=== PATIENT | female | born 1955 | race Caucasian/White ===

== ENCOUNTER 2016-04-12 12:52 | Emergency (ER) | payer OTHER ==
[~2016-04-12] VITALS: Ht 162.6 cm; Wt 6.3 kg
[~2016-04-12 12:52] MED LIST: ATOR10TA65 PO; FURO20TA PO; LISI-313 PO; NITR-58 PO; OMEP20CA16 PO
[2016-04-12 13:08] VITALS: Ht 162.6 cm; Wt 6.3 kg
[2016-04-12 15:34] VITALS: PULSE 94; RESP 20; TEMP 97.3
[2016-04-12] MEDS ORDERED: ONDANSETRON 4 MG INJ IV STA (16:36)
[2016-04-12] MEDS ORDERED: SOD CHLORIDE 0.9% 1,000 ML IV STA (16:36)
[2016-04-12] MEDS ORDERED: ONDANSETRON 4 MG INJ ONE (16:45)
[2016-04-12] MEDS ORDERED: ASPI-664 PO (16:46)
[2016-04-12] MEDS ORDERED: HYDR-902 PO (16:48)
[2016-04-12] MEDS ORDERED: BISA-57 PO (16:52)
[2016-04-12] MEDS ORDERED: [UNRECOGNIZED DRUG - CODE] IV (16:52)
[2016-04-12 17:26] LABS: BASOPHILS % 0.3 % (0.0-2.0); HEMATOCRIT 38.9 % (37.0-47.0); LYMPHOCYTES # 0.6 10^3/ul (0.8-2.9); LYMPHOCYTES % 6.2 % (15.0-51.0); MEAN CORPUSCULAR HEMOGLOBIN 27.3 pg (29.0-33.0); MEAN CORPUSCULAR HGB CONC 33.4 g/dl (32.0-37.0); MEAN CORPUSCULAR VOLUME 81.5 fl (82.0-101.0); MEAN PLATELET VOLUME 8.1 fl (7.4-10.4); MONOCYTE # 0.1 10^3/ul (0.3-0.9); MONOCYTES % 0.6 % (0.0-11.0); NEUTROPHIL # 8.4 10^3/ul (1.6-7.5); NEUTROPHILS % 92.9 % (39.0-77.0); PLATELET COUNT 228 10^3/UL (140-440); RED BLOOD COUNT 4.77 10^6/ul (4.20-5.40); RED CELL DISTRIBUTION WIDTH 15.8 % (11.5-14.5)
[2016-04-12 17:34] LABS: ADD UMIC YES; URINE BILIRUBIN (Dip) NEGATIVE (NEGATIVE); URINE BLOOD (Dip) TRACE (NEGATIVE); URINE COLOR DK. YELLOW (YELLOW); URINE GLUCOSE (Dip) NEGATIVE (NEGATIVE); URINE KETONES (Dip) 15 (NEGATIVE); URINE LEUKOCYTE ESTERASE (Dip) NEGATIVE (NEGATIVE); URINE NITRITE (Dip) NEGATIVE (NEGATIVE); URINE TOTAL PROTEIN (Dip) TRACE (NEGATIVE); URINE UROBILINOGEN (Dip) 0.2 E.U./dL (0.1-1.0)
[2016-04-12 17:36] LABS: CONDITION 1; LH ANALYZER COMMENTS 1
[2016-04-12 17:38] LABS: ALBUMIN 4.5 g/dl (3.3-4.9)
[2016-04-12 17:39] LABS: POTASSIUM 4.5 mmol/L (3.5-5.1)
[2016-04-12 17:41] LABS: ALBUMIN/GLOBULIN RATIO 1.18; BILIRUBIN,INDIRECT 0.9 mg/dl (0-1.1); BILIRUBIN,TOTAL 0.9 mg/dl (0.2-1.3); CREATININE 0.67 mg/dl (0.44-1.00); TOTAL PROTEIN 8.3 g/dl (6.1-8.1)
[2016-04-12 17:42] LABS: CALCIUM 9.8 mg/dl (8.4-10.2)
[2016-04-12 18:08] LABS: SQUAMOUS EPITHELIAL CELL,UR FEW; URINE RBCS 0-2 /HPF (0)
[2016-04-12 18:09] LABS: BACTERIA,URINE FEW; MUCUS,URINE FEW
[2016-04-12 18:36] VITALS: BP 129/64
[2016-04-12 18:40] LABS: PLATELET ESTIMATE PLT APPEAR ADEQUATE
--- NOTE | 2016-04-12 19:28 | RADRPT ---
PROCEDURE: CT Abdomen and Pelvis without contrast. CLINICAL INDICATION: Abdominal pain TECHNIQUE: CT of the abdomen and pelvis was performed on a multi-detector scanner without IV contr ast. Coronal and sagittal images were reformatted from the axial data set. One or more of the foll owing dose reduction techniques were used: automated exposure control, adjustment of the mA and/or kV according to patient size, use of iterative reconstruction technique. CTDI = 8.26 mGy. DLP = 466 .07 mGy-cm. COMPARISON: CTA chest, 02/14/2016 FINDINGS: CT abdomen: The lung bases are clear. The heart size is normal, without pericardial effusion. Gallbladder is s urgically absent. Liver, biliary tree, pancreas, spleen, adrenal glands and kidneys are unremarkabl e. No urolithiasis or obstructive uropathy is identified. The stomach is grossly unremarkable. The aorta is of normal caliber. Aortoiliac atherosclerotic calcifications are present. Small calci fied periaortic lymph nodes are identified, significantly decreased in size when compared to the to[place] or CT. There has also been significant interval decrease in size of previously seen gastrohepatic l igament lymph nodes. CT pelvis: No bowel obstruction, free intraperitoneal air or abscess is identified. Moderate retained fecal ma terial is suggestive of constipation. There is no diverticulosis, diverticulitis, appendicitis or c olitis. Urinary bladder is grossly unremarkable. Uterus is surgically absent. No pelvic free flui d is seen. The surrounding osseous structures are unremarkable. No osteolytic or osteoblastic lesion is detect ed. IMPRESSION: 1. There has been significant interval decrease in size of previously seen periaortic and gastrohep atic ligament lymph nodes, suggestive of positive response to therapy. 2. Gallbladder and uterus are surgically absent. 3. Moderate retained fecal material is suggestive of constipation. 4. No acute inflammatory process is identified. RPTAT: QQ .Mohamud Diaz MD, MD Date Time Electronically viewed and signed by .Mohamud Diaz MD, MD on 04/12/2016 19:28 .R/
[2016-04-12] MEDS ORDERED: DOCU-144 PO (19:34)
[2016-04-12] MEDS ORDERED: CITROMA PO (19:34)
--- NOTE | 2016-04-12 19:40 | ERD ---
ER Documentation Chief Complaint Date/Time DATE: 04/12/16 TIME: 19:35 Chief Complaint VOMITING 3-4 TIMES STARTING YESTERDAY HPI 60-year-old female with a history of recently diagnosed uterine cancer status post total abdominal hysterectomy on IV chemotherapy every 3 weeks presenting with generalized abdominal discomfort. She states that she has had this for the past 2 days. She has had associated nausea with occasional vomiting that is nonbloody and nonbilious. She states she is passing gas but she has been unable to have a bowel movement for the past 4 days despite taking Dulcolax. No fevers, chills, chest pain, shortness of breath, dysuria, or headaches. Her last chemotherapy was 5 days ago. ROS All systems reviewed and are negative except as per history of present illness. Medications Home Meds Active Scripts Magnesium Citrate* (Citroma*) 300 Ml Soln, 300 ML PO ONCE Y for CONSTIPATION, # 1 BOTTLE Prov:PIPPA BENOIT MD 04/12/16 Docusate Sodium* (Colace*) 100 Mg Capsule, 100 MG PO TID Y for CONSTIPATION, # 30 CAP Prov:PIPPA BENOIT MD 04/12/16 Furosemide* (Lasix*) 20 Mg Tablet, 20 MG PO DAILY for 30 Days, TAB Prov:KARIE TAN NP 02/24/16 Reported Medications Bisacodyl* (Dulcolax*) 5 Mg Tablet., 10 MG PO DAILY Y for CONSTIPATION, TAB 04/12/16 Granisetron HCl (Granisetron HCl) 1 Mg/1 Ml Vial, 1 MG IV BID, VIAL PT TAKES A TABLET 04/12/16 Hydrocodone/Acetaminophen ([place] 10-325 Tablet) 1 Each Tablet, 1 EACH PO EVERY 4 -6 HOURS Y for PAIN, TAB 04/12/16 Aspirin (Low Dose Aspirin) 81 Mg Tablet.dr, 81 MG PO DAILY, #30 TAB 04/12/16 Atorvastatin (Atorvastatin) 10 Mg Tablet, 10 MG PO QHS, #30 TAB 02/05/16 Lisinopril* (Lisinopril*) 5 Mg Tablet, 5 MG PO DAILY, #30 TAB 02/05/16 Omeprazole* (Omeprazole*) 20 Mg Capsule.dr, 20 MG PO DAILY, #30 CAP 02/05/16 Discontinued Scripts Nitrofurantoin Monohyd Macrocr* (Macrobid*) 100 Mg Capsr, 100 MG PO BID for 5 Days, CAP Prov:ROSE MARY CUMMINSGoran BURTON 03/16/16 Allergies Allergies: Coded Allergies: No Known Allergies (Unverified Allergy, Unknown, 04/12/16) PMhx/Soc History of Surgery: Yes (HYSTERECTOMY 0CT,2015) Anesthesia Reaction: No Hx Neurological Disorder: No Hx Respiratory Disorders: No Hx Cardiac Disorders: No Hx Psychiatric Problems: No Hx Miscellaneous Medical Probl: Yes (DYSLIPIDEMIA, OVERWEIGHT, CANCER (UTERINE )) Hx Alcohol Use: No Hx Substance Use: No Hx Tobacco Use: No Smoking Status: Never smoker FmHx Family History: No diabetes Physical Exam Vitals Vital Signs Date Time Temp Pulse Resp B/P Pulse Ox O2 Delivery O2 Flow Rate FiO2 04/12/16 18:36 129/64 04/12/16 15:34 97.3 94 20 133/68 99 Room Air 04/12/16 13:08 97.0 91 18 126/76 99 Physical Exam Const: No apparent distress, nontoxic Head: Atraumatic Eyes: Normal Conjunctiva ENT: Normal External Ears, Nose and Mouth. Neck: Full range of motion..~ No meningismus. Resp: Clear to auscultation bilaterally. Port present in left chest, no overlying erythema or tenderness Cardio: Regular rate and rhythm, no murmurs. Abd: Soft, non tender, non distended. Normal bowel sounds Skin: No petechiae or rashes Back: No midline or flank tenderness Ext: No cyanosis, or edema Neur: Awake and alert Psych: Normal Mood and Affect Result Diagram: 04/12/16 1710 04/12/16 1710 Results 24 hrs Laboratory Tests Test 04/12/16 17:10 Alanine Aminotransferase (ALT/SGPT) 24IU/L Albumin 4.5g/dl Albumin/Globulin Ratio 1.18 Alkaline Phosphatase 117IU/L Anion Gap 18 Aspartate Amino Transf (AST/SGOT) 22IU/L Basophils # 0.010^3/ul Basophils % 0.3% Blood Morphology Comment Blood Urea Nitrogen 25mg/dl Calcium Level 9.8mg/dl Carbon Dioxide Level 28mmol/L Chloride Level 99mmol/L Creatinine 0.67mg/dl Direct Bilirubin 0.00mg/dl Eosinophils # 0.010^3/ul Eosinophils % 0.0% Globulin 3.80g/dl Glucose Level 143mg/dl Hematocrit 38.9% Hemoglobin 13.0g/dl Indirect Bilirubin 0.9mg/dl Lipase 48U/L Lymphocytes # 0.610^3/ul Lymphocytes % 6.2% Mean Corpuscular Hemoglobin 27.3pg Mean Corpuscular Hemoglobin Concent 33.4g/dl Mean Corpuscular Volume 81.5fl Mean Platelet Volume 8.1fl Monocytes # 0.110^3/ul Monocytes % 0.6% Neutrophils # 8.410^3/ul Neutrophils % 92.9% Nucleated Red Blood Cells # 0.010^3/ul Nucleated Red Blood Cells % 0.0/100WBC Platelet Count 39756^3/UL Platelet Estimate PLT APPEAR ADEQUATE Potassium Level 4.5mmol/L Red Blood Count 4.7710^6/ul Red Cell Distribution Width 15.8% Sodium Level 140mmol/L Total Bilirubin 0.9mg/dl Total Protein 8.3g/dl Urine Bacteria FEW Urine Bilirubin NEGATIVE Urine Clarity SLIGHTLY CLOUDY Urine Color DK. YELLOW Urine Glucose NEGATIVE% Urine Hemoglobin TRACE Urine Ketones 15 Urine Leukocyte Esterase NEGATIVE Urine Microscopic RBC 0-2/HPF Urine Microscopic WBC 0-2/HPF Urine Mucus FEW Urine Nitrite NEGATIVE Urine Specific [place] >=1.030 Urine Squamous Epithelial Cells FEW Urine Total Protein TRACE Urine Urobilinogen 0.2 E.U./dL Urine pH 5.5 White Blood Count 9.010^3/ul Current Medications Medications (Trade) Dose Ordered Sig/David Route PRN Reason Start Time Stop Time Status Last Admin Dose Admin Sodium Chloride (NS) 1,000 ml @ 1,000 mls/hr Q1H STAT IV 04/12/16 16:36 04/12/16 17:35 DC 04/12/16 16:57 Ondansetron HCl (Zofran Inj) 4 mg ONCE STAT IV 04/12/16 16:36 04/12/16 16:39 DC 04/12/16 16:57 Procedures/MDM EKG: Rate/Rhythm: Normal Sinus Rhythm QRS, ST, T-waves: No changes consistent w/ acute ischemia Impression: No evidence of ischemia or arrhythmia Patient is presenting with generalized abdominal pain associated with nausea, vomiting, and constipation. Vitals are within normal limits and she is afebrile. I have a low suspicion for an acute surgical abdomen or acute intra- abdominal infection. I suspect her symptoms may be secondary to her constipation. CT of the abdomen showed moderate retained stool without evidence of acute intra-abdominal pathology. Labs were all within normal limits and there is no evidence of UTI. Patient was given IV fluids and anti- emetics here with significant improvement of her symptoms. I prescribed her Colace for discharge as this has helped her in the past with her constipation. I also gave her prescription for mag citrate and told her to use this only if she really needs to for constipation if the Colace is not working. Patient was tolerating liquids by mouth in the ED. I believe she is stable for discharge with continued outpatient follow-up. Return precautions were discussed. Patient feels comfortable going home at this time. Departure Diagnosis: Primary Impression: Abdominal pain Abdominal location: generalized Qualified Code: R10.84 - Generalized abdominal pain Additional Impression: Constipation Constipation type: unspecified constipation type Qualified Code: K59.00 - Constipation, unspecified constipation type Condition: Stable Patient Instructions: Abdominal Pain, Constipation (Adult) Additional Instructions: Return to the ER for any worsening symptoms. PIPPA BENOIT MD Apr 12, 2016 19:40
== END 2016-04-12 20:50 | disposition home or self-care (01) ==
LOC: E/R 12:52
DX: R10.84 Generalized abdominal pain (principal); K59.00 Constipation, unspecified; R11.2 Nausea with vomiting, unspecified; R40.2142 Coma scale, eyes open, spontaneous, at arrival to emergency department; R40.2252 Coma scale, best verbal response, oriented, at arrival to emergency department; R40.2362 Coma scale, best motor response, obeys commands, at arrival to emergency department; Z79.82 Long term (current) use of aspirin; Z85.42 Personal history of malignant neoplasm of other parts of uterus
CPT/HCPCS: 36415; 74176; 80053; 81001; 81003; 83690; 85025; 93005; 96374; J7030; Z7502; J2405

== ENCOUNTER 2016-10-23 05:19 | Inpatient (IN) | payer OTHER ==
[2016-10-23] VITALS (21 sets, daily range): BP systolic 126–159; BP diastolic 56–80; PULSE 72–92; RESP 12–18; Ht 160 cm; Wt 70.5 kg
[~2016-10-23] VITALS: Ht 160 cm; Wt 70.5 kg
[~2016-10-23 05:19] MED LIST changes: +ASPI-664 PO; +BISA-57 PO; +CITROMA PO; +DOCU-144 PO; +FURO-110 PO; -FURO20TA PO; +HYDR-902 PO; -NITR-58 PO; +[UNRECOGNIZED DRUG - CODE] IV
[2016-10-23] MEDS ORDERED: D5-NS + KCL 20 MEQ 1,000 ML IV SCH (06:00)
[2016-10-23] MEDS ORDERED: CEFAZOLIN 2 GM/50 ML (PMX) 50 ML IVPB ONE (06:00)
[2016-10-23] MEDS ORDERED: Metronidazole 500 MG in NS 100 ML IVPB ONE (06:00)
[2016-10-23] MEDS ORDERED: ROCURONIUM 50 MG INJ ONE (06:52)
[2016-10-23] MEDS ORDERED: GLYCOPYRROLATE 0.4 MG INJ ONE (06:52)
[2016-10-23] MEDS ORDERED: NEOSTIGMINE 3 MG/3 ML SYRINGE ONE (06:52)
[2016-10-23] MEDS ORDERED: PROPOFOL 20 ML ONE (06:52)
[2016-10-23] MEDS ORDERED: MIDAZOLAM 1 MG/ML 2 ML INJ ONE (06:52)
[2016-10-23] MEDS ORDERED: FENTAnyl 50 MCG/ML VIAL ONE (06:52)
[2016-10-23] MEDS ORDERED: LIDOCAINE 2% (SDV) 5 ML INJ ONE (06:52)
[2016-10-23] MEDS ORDERED: ONDANSETRON 4 MG INJ ONE (06:53)
[2016-10-23] MEDS ORDERED: DEXAMETHASONE 4 MG/ML 1 ML INJ ONE (06:53)
--- NOTE | 2016-10-23 06:57 | HPN ---
Date/Time of Note Date/Time of Note DATE: 10/23/16 TIME: 06:56 Interval H&P Admission Note Pt. seen H&P reviewed: No system changes JEFF PALOMINO MD Oct 23, 2016 06:57
[2016-10-23] MEDS ORDERED: morphine (1 MG/ML) 10ML SYRINGE IV PRN ×3 (07:00)
[2016-10-23] MEDS ORDERED: DIPHENHYDRAMINE 50 MG INJ IV PRN (07:00)
[2016-10-23] MEDS ORDERED: ONDANSETRON 4 MG INJ IV PRN (07:00)
[2016-10-23] MEDS ORDERED: ATROPINE 1 MG/10 ML SYRINGE IV PRN (07:00)
[2016-10-23] MEDS ORDERED: CEFAZOLIN 1 GM INJ ONE (07:00)
[2016-10-23] MEDS ORDERED: metroNIDAZOLE 500 MG/100 ML NS IVPB ONE (07:00)
[2016-10-23] MEDS ORDERED: HYDROmorphONE (0.2 MG/ML) 10ML SYG IV PRN ×3 (07:00)
[2016-10-23] MEDS ORDERED: EPHEDrine SULFATE 50 MG/5 ML SYG IV PRN (07:00)
[2016-10-23] MEDS ORDERED: OXYCODONE/ACETAMINOPHEN (5/325) TAB PO PRN ×2 (07:00)
[2016-10-23] MEDS ORDERED: MIDAZOLAM 1 MG/ML 2 ML INJ IV PRN (07:00)
[2016-10-23] MEDS ORDERED: MEPERIDINE 25 MG INJ IV PRN (07:00)
[2016-10-23] MEDS ORDERED: FENTAnyl 50 MCG/ML VIAL IV PRN (07:00)
[2016-10-23] MEDS ORDERED: LABETALOL HCL 20MG INJ IV PRN (07:00)
[2016-10-23] MEDS ORDERED: hydrALAzine 20 MG INJ IV PRN ×2 (07:00→18:30)
[2016-10-23] MEDS ORDERED: morphine SULFATE/PF (10 MG/10 ML) INJ ONE (07:06)
[2016-10-23] MEDS ORDERED: VASOPRESSIN 20 UNITS INJ ONE (07:34)
[2016-10-23] MEDS ORDERED: METHYLENE BLUE 1% 10 ML INJ ONE (07:34)
[2016-10-23] MEDS ORDERED: THROMBIN 5000 UNIT VIAL ONE (07:34)
[2016-10-23] MEDS ORDERED: LABETALOL HCL 20MG INJ ONE (08:44)
--- NOTE | 2016-10-23 08:44 | HP ---
Date/Time of Note Date/Time of Note DATE: 10/23/16 TIME: 08:43 Assessment/Plan VTE Prophylaxis VTE Prophylaxis Intervention: SCD's Lines/Catheters IV Catheter Type (from [facility]): Peripheral IV HPI/ROS Admit Date/Time Admit Date/Time Oct 23, 2016 at 05:19 ROS Lalit Palomino M.D. [facility] History and Physical Examination Griselda Stein Oct 19, 2016 Age:61 :1955 Physicians: Facility Specialist Boat Person Oncologist Referring MD: History of the Present Illness: This is a year old female who had a primary ovarian cancer operated on with a complete response to [place]-based chemotherapy. She is admitted for a staging/reassessment procedure. Surgery: SAMIA/BSO/LND/cytoreduction Medical history/ROS: all other systems unremarkable. Medications: 01/05/16 aspirin 81 mg chewable tablet 1 tablet by mouth DAILY 01/05/16 atorvastatin 10 mg tablet 1 tablet by mouth DAILY 01/05/16 diclofenac sodium 50 mg tablet,delayed release 1 tablet by mouth BID 10/06/16 Flagyl 250 mg tablet 1 tablet by mouth as directed 1 PO QD X 2 DAYS LYNETTE 10/06/16 [place] 236 gram-22.74 gram-6.74 gram-5.86 gram oral solution 1 mL by mouth as directed BEGIN BOWEL PREP AT 2PM 10/06/16 Levaquin 250 mg tablet 1 tablet by mouth as directed 1 PO QD X 2 DAYS LYNETTE 01/05/16 lisinopril 5 mg tablet 1 tablet by mouth DAILY 10/06/16 [place] 10 mg-325 mg tablet 1 tablet by mouth Q6-8h 01/05/16 omeprazole 20 mg capsule,delayed release 1 capsule by mouth DAILY gardisil Allergies: No active allergies recorded Family history: unremarkable. Social history: no identified high-risk categories. Review of Systems: Negative except for above noted Physical Examination Vitals (10/19/2016): Weight 161, Height 62, BP 120/80, BMI 29.4. General: Alert. HEENT: Pupils are equal, round, reactive to light and accommodation. Neck: Supple with no masses of lymphadenopathy. Breast: Deferred due to recent examination and responsibility of primary care physician. Chest: Clear to auscultation and percussion with no rales, rhonchi, or wheeze. Heart: Normal rhythm with no murmur. Abdominal exam: nontender, nondistended, no masses, no ascites. location: N/A Pelvic exam: no masses or cul-de-sac nodularity noted Rectal: confirmatory with pelvic exam. Neurological: Grossly intact Assessment: Ovarian cancer with primary chemo rx completed. Plan: Reassessment laparotomy with staging, possible cytoreduction. All risks and benefits of this procedure have been discussed in detail with the patient, as well as alternative treatment strategies and their implications. The patient is aware that there is some possibility of a blood transfusion and its associated risks and benefits. She wishes to proceed and gives her informed consent. Lalit Palomino M.D. PMH/Family/Social Social History Smoking Status: Never smoker Exam/Review of Systems Vital Signs Vitals Vital Signs Date Time Temp Pulse Resp B/P Pulse Ox O2 Delivery O2 Flow Rate FiO2 10/23/16 06:00 96.9 73 18 140/71 98 Room Air Medications Medications Current Medications Potassium Chloride/Dextrose/ Sod Cl (D5-NS + KCl 20 Meq) 1,000 ml @ 100 mls/hr Q10H IV ; Start 10/23/16 at 06:00; Stop 10/23/16 at 23:00 LALIT PALOMINO MD Oct 23, 2016 08:44
[2016-10-23] MEDS: FENTAnyl 50 MCG/ML VIAL IV PRN ×4 (11:57→12:44)
[2016-10-23] MEDS: HYDROmorphONE 0.2 MG/ML PCA IV SCH (12:11)
[2016-10-23] MEDS ORDERED: CEFAZOLIN 1 GM/50 ML (PMX) 50 ML IVPB ONE (12:17)
[2016-10-23] MEDS ORDERED: CEFAZOLIN 1 GM in SOD CHLORIDE 0.9% 100 ML IVPB SCH (12:30)
[2016-10-23] MEDS: POTASSIUM CHLORIDE 20 MEQ in LACTATED RINGER'S 990 ML IV SCH ×2 (12:54→21:29)
[2016-10-23] MEDS: ONDANSETRON 4 MG INJ IV PRN (13:41)
[2016-10-23] MEDS: CEFAZOLIN 1 GM/50 ML (PMX) 50 ML IVPB SCH ×2 (13:41→21:25)
[2016-10-23 14:44] LABS: ADD SCAN DIFF NO
[2016-10-23 15:08] LABS: HEMATOCRIT 37.9 % (37.0-47.0); HEMOGLOBIN 13.4 g/dl (12.0-16.0); MEAN CORPUSCULAR HEMOGLOBIN 29.7 pg (29.0-33.0); MEAN CORPUSCULAR HGB CONC 35.4 g/dl (32.0-37.0); MEAN PLATELET VOLUME 9.6 fl (7.4-10.4); PLATELET COUNT 299 10^3/UL (140-415); RED BLOOD COUNT 4.51 10^6/ul (4.20-5.40); RED CELL DISTRIBUTION WIDTH 13.1 % (11.5-14.5); WHITE BLOOD COUNT 13.8 10^3/ul (4.8-10.8)
[2016-10-23 15:27] LABS: CALCIUM 8.8 mg/dl (8.4-10.2); CREATININE 0.54 mg/dl (0.44-1.00); POTASSIUM 3.5 mmol/L (3.5-5.1)
[2016-10-23 15:30] LABS: LYMPHOCYTES # 0.4 10^3/ul (0.8-2.9); MONOCYTE # 0.4 10^3/ul (0.3-0.9); NEUTROPHIL # 12.6 10^3/ul (1.6-7.5)
--- NOTE | 2016-10-23 18:28 | PN ---
Date/Time of Note Date/Time of Note DATE: 10/23/16 TIME: 18:23 Assessment/Plan VTE Prophylaxis VTE Prophylaxis Intervention: anti-embolic stocking Lines/Catheters IV Catheter Type (from Nrs): Peripheral IV Urinary Cath still in place: Yes Reason Cath still needed: other (indicate) Assessment/Plan Chief Complaint/Hosp Course Patient is a 61-year-old female with a primary ovarian cancer operated on subsequently underwent a [place] based chemotherapy. She is being admitted for staging/restaging procedure. Patient postoperatively had is breathing comfortably denies any chest pain or shortness of breath,denies any numbness or weakness in any extremities. Patient has a history of hypertension and dyslipidemia but since she is postoperatively being kept n.p.o. will hold off on her antihypertensive medication. Will add IV had hydralazine on as needed basis. Problems: Subjective 24 Hr Interval Summary Free Text/Dictation No reported chest pain ,shortness of breath, headache, pain in any extremities. Exam/Review of Systems Vital Signs Vitals Vital Signs Date Time Temp Pulse Resp B/P Pulse Ox O2 Delivery O2 Flow Rate FiO2 10/23/16 17:00 16 10/23/16 16:15 92 143/65 92 Nasal Cannula 1.0 10/23/16 13:30 97.7 Results Result Diagram: 10/23/16 1431 10/23/16 1431 Results 24 hrs Laboratory Tests Test 10/23/16 14:31 White Blood Count 13.8 #H Red Blood Count 4.51 Hemoglobin 13.4 Hematocrit 37.9 Mean Corpuscular Volume 84.0 Mean Corpuscular Hemoglobin 29.7 Mean Corpuscular Hemoglobin Concent 35.4 Red Cell Distribution Width 13.1 Platelet Count 299 Mean Platelet Volume 9.6 Neutrophils % 91.0 H Band Neutrophils % 3.0 Lymphocytes % 3.0 L Monocytes % 3.0 Eosinophils % Neutrophils # 12.6 H Lymphocytes # 0.4 L Monocytes # 0.4 Eosinophils # Sodium Level 143 Potassium Level 3.5 Chloride Level 103 Carbon Dioxide Level 26 Anion Gap 18 H Blood Urea Nitrogen 12 Creatinine 0.54 Glucose Level 236 H Calcium Level 8.8 Medications Medications Current Medications Hydromorphone HCl (Dilaudid FOREST ECONOMIST) 0 MG/HR CONTINUOUS RATE ... Q4PCA IV Last administered on 10/23/16t 12:11; Admin Dose 6 MG; Start 10/23/16 at 12:30 Hydromorphone HCl (Dilaudid) 1 mg Q2HWA PRN IV PAIN LEVEL 6-10; Start 10/23/16 at 12:00 Ondansetron HCl (Zofran Inj) 4 mg Q6H PRN IV NAUSEA AND/OR VOMITING Last administered on 10/23/16 13:41; Admin Dose 4 MG; Start 10/23/16 at 12:00 Famotidine 20 mg 20 mg Q12 IV ; Start 10/23/16 at 21:00 Potassium Chloride 20 meq/ Lactated Ringer's 1,000 ml @ 125 mls/hr Q8H IV Last administered on 10/23/16 12:54; Admin Dose 125 MLS/HR; Start 10/23/16 at 12:30 Cefazolin Sodium (Ancef 1 Gm/50 ml (Pmx)) 50 ml @ 100 mls/hr Q8 IVPB Last administered on 10/23/16 13:41; Admin Dose 100 MLS/HR; Start 10/23/16 at 14:00 Hydralazine HCl (Apresoline) 10 mg Q4H PRN IV SBP >160, DBP >95; Start at 18:30 COBY KRAMER MD Oct 23, 2016 18:28
[2016-10-23] MEDS: FAMOTIDINE 20 MG INJ IV SCH (21:25)
[2016-10-24] VITALS: BP 144/69; PULSE 89
[2016-10-24] MEDS: POTASSIUM CHLORIDE 20 MEQ in LACTATED RINGER'S 990 ML IV SCH ×3 (04:30→15:43)
[2016-10-24 05:02] LABS: ADD SCAN DIFF NO
[2016-10-24 05:07] LABS: BASOPHILS % 0.1 % (0.0-2.0); HEMATOCRIT 35.4 % (37.0-47.0); HEMOGLOBIN 12.1 g/dl (12.0-16.0); LYMPHOCYTES # 1.2 10^3/ul (0.8-2.9); LYMPHOCYTES % 10.5 % (15.0-51.0); MEAN CORPUSCULAR HEMOGLOBIN 28.5 pg (29.0-33.0); MEAN CORPUSCULAR HGB CONC 34.2 g/dl (32.0-37.0); MEAN CORPUSCULAR VOLUME 83.3 fl (82.0-101.0); MEAN PLATELET VOLUME 9.6 fl (7.4-10.4); MONOCYTE # 0.9 10^3/ul (0.3-0.9); MONOCYTES % 7.7 % (0.0-11.0); NEUTROPHIL # 9.2 10^3/ul (1.6-7.5); NEUTROPHILS % 81.4 % (39.0-77.0); PLATELET COUNT 291 10^3/UL (140-415); RED BLOOD COUNT 4.25 10^6/ul (4.20-5.40); WHITE BLOOD COUNT 11.3 10^3/ul (4.8-10.8)
[2016-10-24 05:10] VITALS: BP 145/72; PULSE 93
[2016-10-24 05:36] LABS: ALBUMIN 3.7 g/dl (3.3-4.9); ALBUMIN/GLOBULIN RATIO 1.37; BILIRUBIN,INDIRECT 0.3 mg/dl (0-1.1); BILIRUBIN,TOTAL 0.3 mg/dl (0.2-1.3); CALCIUM 9.3 mg/dl (8.4-10.2); CREATININE 0.59 mg/dl (0.44-1.00); POTASSIUM 4.5 mmol/L (3.5-5.1); TOTAL PROTEIN 6.4 g/dl (6.1-8.1)
[2016-10-24] MEDS: CEFAZOLIN 1 GM/50 ML (PMX) 50 ML IVPB SCH ×3 (05:36→22:11)
[2016-10-24] MEDS: FAMOTIDINE 20 MG INJ IV SCH ×2 (06:34→20:49)
[2016-10-24] MEDS: HYDROmorphONE 0.2 MG/ML PCA IV SCH ×2 (06:39→22:47)
[2016-10-24 07:00] VITALS: BP 136/61; RESP 18
--- NOTE | 2016-10-24 15:49 | PN ---
Date/Time of Note Date/Time of Note DATE: 10/24/16 TIME: 15:45 Assessment/Plan VTE Prophylaxis VTE Prophylaxis Intervention: other Lines/Catheters IV Catheter Type (from Nrsg): Peripheral IV Urinary Cath still in place: Yes Reason Cath still needed: urinary retention Assessment/Plan Assessment/Plan Ovarian cancer with primary chemo rx completed. - per surgery - pain control dw Dr Phelps/staff Subjective 24 Hr Interval Summary Constitutional: requiring IVF, requiring O2 Respiratory: no complaints Cardiovascular: no complaints Gastrointestinal: no complaints Genitourinary: no complaints Musculoskeletal: no complaints Exam/Review of Systems Vital Signs Vitals Vital Signs Date Time Temp Pulse Resp B/P Pulse Ox O2 Delivery O2 Flow Rate FiO2 10/24/16 14:22 18 10/24/16 09:00 Nasal Cannula 2.0 10/24/16 07:00 99.0 85 136/61 96 Intake and Output 10/23/16 10/23/16 10/24/16 15:00 23:00 07:00 Intake Total 1250 ml 550 ml 1110 ml Output Total 370 ml 280 ml 1020 ml Balance 880 ml 270 ml 90 ml Exam Constitutional: alert, well developed Respiratory: clear to auscultation, normal air movement Cardiovascular: nl pulses, regular rate and rhythm Gastrointestinal: non-tender, soft Extremities: normal pulses Results Result Diagram: 10/24/165 10/24/16 0425 Results 24 hrs Laboratory Tests Test 10/24/16 04:25 White Blood Count 11.3 H Red Blood Count 4.25 Hemoglobin 12.1 Hematocrit 35.4 L Mean Corpuscular Volume 83.3 Mean Corpuscular Hemoglobin 28.5 L Mean Corpuscular Hemoglobin Concent 34.2 Red Cell Distribution Width 13.0 Platelet Count 291 Mean Platelet Volume 9.6 Neutrophils % 81.4 H Lymphocytes % 10.5 L Monocytes % 7.7 Eosinophils % 0.0 Basophils % 0.1 Nucleated Red Blood Cells % 0.0 Neutrophils # 9.2 H Lymphocytes # 1.2 Monocytes # 0.9 Eosinophils # 0.0 Basophils # 0.0 Nucleated Red Blood Cells # 0.0 Sodium Level 141 Potassium Level 4.5 Chloride Level 98 Carbon Dioxide Level 29 Anion Gap 19 H Blood Urea Nitrogen 12 Creatinine 0.59 Glucose Level 137 # Hemoglobin A1c 7.0 H Calcium Level 9.3 Total Bilirubin 0.3 Direct Bilirubin 0.00 Indirect Bilirubin 0.3 Aspartate Amino Transf (AST/SGOT) 37 Alanine Aminotransferase (ALT/SGPT) 62 Alkaline Phosphatase 92 Total Protein 6.4 Albumin 3.7 Globulin 2.70 Albumin/Globulin Ratio 1.37 Medications Medications Current Medications Hydromorphone HCl (Dilaudid TECHNOLOGY SALES REPRESENTATIVE) 0 MG/HR CONTINUOUS RATE ... Q4PCA IV Last administered on 10/24/16 06:39; Admin Dose 6 MG; Start 10/23/16 at 12:30 Hydromorphone HCl (Dilaudid) 1 mg Q2HWA PRN IV PAIN LEVEL 6-10; Start 10/23/16 at 12:00 Ondansetron HCl (Zofran Inj) 4 mg Q6H PRN IV NAUSEA AND/OR VOMITING Last administered on 10/23/16 13:41; Admin Dose 4 MG; Start 10/23/16 at 12:00 Famotidine 20 mg 20 mg Q12 IV Last administered on 10/24/16 06:34; Admin Dose 20 MG; Start 10/23/16 at 21:00 Potassium Chloride 20 meq/ Lactated Ringer's 1,000 ml @ 125 mls/hr Q8H IV Last administered on 10/24/16 15:43; Admin Dose 125 MLS/HR; Start 10/23/16 at 12:30 Cefazolin Sodium (Ancef 1 Gm/50 ml (Pmx)) 50 ml @ 100 mls/hr Q8 IVPB Last administered on 10/24/16 14:13; Admin Dose 100 MLS/HR; Start 10/23/16 at 14:00 Hydralazine HCl (Apresoline) 10 mg Q4H PRN IV SBP >160, DBP >95; Start at 18:30 YFN BRIAN Oct 24, 2016 15:49
[2016-10-24] MEDS: PANTOPRAZOLE 40 MG INJ IV SCH (16:33)
[2016-10-24 20:00] VITALS: BP 139/65; PULSE 88
[2016-10-24] MEDS: LEVALBUTEROL (NEB) 0.63 MG/3 ML AMP HHN PRN (20:58)
--- NOTE | 2016-10-24 21:40 | PN ---
Date/Time of Note Date/Time of Note DATE: 10/24/16 TIME: 21:36 Assessment/Plan VTE Prophylaxis VTE Prophylaxis Intervention: SCD's Lines/Catheters IV Catheter Type (from Nrs): Peripheral IV Urinary Cath still in place: Yes Reason Cath still needed: urinary retention Assessment/Plan Chief Complaint/Hosp Course ovarian cancer /p tootie rx Problems: Assessment/Plan A- doing well p- mobilize and adv diet a.m. Subjective 24 Hr Interval Summary Free Text/Dictation No flatus and minimally OOB. Exam/Review of Systems Vital Signs Vitals Vital Signs Date Time Temp Pulse Resp B/P Pulse Ox O2 Delivery O2 Flow Rate FiO2 10/24/16 21:10 2.0 10/24/16 21:10 85 16 97 Nasal Cannula 10/24/16 07:00 99.0 136/61 Intake and Output 10/23/16 10/23/16 10/24/16 15:00 23:00 07:00 Intake Total 1250 ml 550 ml 1110 ml Output Total 370 ml 280 ml 1020 ml Balance 880 ml 270 ml 90 ml Exam Resp - clear CVS- nsr Abd- soft nt clean Ext nt no edema Results Result Diagram: 10/24/16 0425 10/24/16 0425 Results 24 hrs Laboratory Tests Test 10/24/16 04:25 White Blood Count 11.3 H Red Blood Count 4.25 Hemoglobin 12.1 Hematocrit 35.4 L Mean Corpuscular Volume 83.3 Mean Corpuscular Hemoglobin 28.5 L Mean Corpuscular Hemoglobin Concent 34.2 Red Cell Distribution Width 13.0 Platelet Count 291 Mean Platelet Volume 9.6 Neutrophils % 81.4 H Lymphocytes % 10.5 L Monocytes % 7.7 Eosinophils % 0.0 Basophils % 0.1 Nucleated Red Blood Cells % 0.0 Neutrophils # 9.2 H Lymphocytes # 1.2 Monocytes # 0.9 Eosinophils # 0.0 Basophils # 0.0 Nucleated Red Blood Cells # 0.0 Sodium Level 141 Potassium Level 4.5 Chloride Level 98 Carbon Dioxide Level 29 Anion Gap 19 H Blood Urea Nitrogen 12 Creatinine 0.59 Glucose Level 137 # Hemoglobin A1c 7.0 H Calcium Level 9.3 Total Bilirubin 0.3 Direct Bilirubin 0.00 Indirect Bilirubin 0.3 Aspartate Amino Transf (AST/SGOT) 37 Alanine Aminotransferase (ALT/SGPT) 62 Alkaline Phosphatase 92 Total Protein 6.4 Albumin 3.7 Globulin 2.70 Albumin/Globulin Ratio 1.37 Medications Medications Current Medications Hydromorphone HCl (Dilaudid TARGET SETTER) 0 MG/HR CONTINUOUS RATE ... Q4PCA IV Last administered on 10/24/16 06:39; Admin Dose 6 MG; Start 10/23/16 at 12:30 Hydromorphone HCl (Dilaudid) 1 mg Q2HWA PRN IV PAIN LEVEL 6-10; Start 10/23/16 at 12:00 Ondansetron HCl (Zofran Inj) 4 mg Q6H PRN IV NAUSEA AND/OR VOMITING Last administered on 10/23/16 13:41; Admin Dose 4 MG; Start 10/23/16 at 12:00 Famotidine 20 mg 20 mg Q12 IV Last administered on 10/24/16 20:49; Admin Dose 20 MG; Start 10/23/16 at 21:00 Potassium Chloride 20 meq/ Lactated Ringer's 1,000 ml @ 125 mls/hr Q8H IV Last administered on 10/24/16 15:43; Admin Dose 125 MLS/HR; Start 10/23/16 at 12:30 Cefazolin Sodium (Ancef 1 Gm/50 ml (Pmx)) 50 ml @ 100 mls/hr Q8 IVPB Last administered on 10/24/16 14:13; Admin Dose 100 MLS/HR; Start 10/23/16 at 14:00 Hydralazine HCl (Apresoline) 10 mg Q4H PRN IV SBP >160, DBP >95; Start at 18:30 Pantoprazole (Protonix Iv) 40 mg DAILY@06 IV Last administered on 10/24/16 16: 33; Admin Dose 40 MG; Start 10/24/16 at 16:30 JEFF PALOMINO MD Oct 24, 2016 21:40
[2016-10-25] MEDS: POTASSIUM CHLORIDE 20 MEQ in LACTATED RINGER'S 990 ML IV SCH ×2 (00:12→15:25)
[2016-10-25 05:39] LABS: ADD SCAN DIFF NO
[2016-10-25] MEDS: PANTOPRAZOLE 40 MG INJ IV SCH (05:44)
[2016-10-25] MEDS: CEFAZOLIN 1 GM/50 ML (PMX) 50 ML IVPB SCH ×3 (05:44→21:43)
[2016-10-25 05:50] LABS: BASOPHIL # 0.1 10^3/ul (0.0-0.1); BASOPHILS % 0.6 % (0.0-2.0); EOSINOPHILS # 0.1 10^3/ul (0.0-0.5); EOSINOPHILS % 0.9 % (0.0-7.0); HEMOGLOBIN 10.4 g/dl (12.0-16.0); LYMPHOCYTES # 1.8 10^3/ul (0.8-2.9); LYMPHOCYTES % 16.2 % (15.0-51.0); MEAN CORPUSCULAR HEMOGLOBIN 28.3 pg (29.0-33.0); MEAN CORPUSCULAR HGB CONC 33.5 g/dl (32.0-37.0); MEAN CORPUSCULAR VOLUME 84.5 fl (82.0-101.0); MEAN PLATELET VOLUME 9.6 fl (7.4-10.4); MONOCYTE # 0.7 10^3/ul (0.3-0.9); MONOCYTES % 6.7 % (0.0-11.0); NEUTROPHIL # 8.2 10^3/ul (1.6-7.5); NEUTROPHILS % 75.1 % (39.0-77.0); PLATELET COUNT 246 10^3/UL (140-415); RED BLOOD COUNT 3.67 10^6/ul (4.20-5.40); RED CELL DISTRIBUTION WIDTH 13.2 % (11.5-14.5); WHITE BLOOD COUNT 10.9 10^3/ul (4.8-10.8)
[2016-10-25 06:06] LABS: CALCIUM 8.7 mg/dl (8.4-10.2); CREATININE 0.62 mg/dl (0.44-1.00)
[2016-10-25] MEDS: LEVALBUTEROL (NEB) 0.63 MG/3 ML AMP HHN PRN ×3 (07:17→23:38)
[2016-10-25 08:50] VITALS: BP 103/53; RESP 17
[2016-10-25] MEDS: FAMOTIDINE 20 MG INJ IV SCH ×2 (09:07→20:08)
--- NOTE | 2016-10-25 15:02 | PN ---
Date/Time of Note Date/Time of Note DATE: 10/25/16 TIME: 15:00 Assessment/Plan VTE Prophylaxis VTE Prophylaxis Intervention: SCD's Lines/Catheters IV Catheter Type (from Nrs): Peripheral IV Urinary Cath still in place: Yes Reason Cath still needed: urinary retention Assessment/Plan Chief Complaint/Hosp Course ovarian cancer /p tootie rx Problems: Assessment/Plan A- gradual impvt/ P- clear liq and ambulate more Subjective 24 Hr Interval Summary Free Text/Dictation + flatus but minimally OOB Exam/Review of Systems Vital Signs Vitals Vital Signs Date Time Temp Pulse Resp B/P Pulse Ox O2 Delivery O2 Flow Rate FiO2 10/25/16 08:50 99.3 92 17 103/53 92 10/25/16 07:17 Nasal Cannula 2.0 Intake and Output 10/24/16 10/24/16 10/25/16 15:00 23:00 07:00 Intake Total 50 ml 1360 ml 1410 ml Output Total 1040 ml 2010 ml Balance 50 ml 320 ml -600 ml Exam Resp- clear CVS- NSR Abd- soft NT Ext NT no edema Results Result Diagram: 10/25/16 0509 10/25/16 0509 Results 24 hrs Laboratory Tests Test 10/25/16 05:09 White Blood Count 10.9 H Red Blood Count 3.67 L Hemoglobin 10.4 L Hematocrit 31.0 L Mean Corpuscular Volume 84.5 Mean Corpuscular Hemoglobin 28.3 L Mean Corpuscular Hemoglobin Concent 33.5 Red Cell Distribution Width 13.2 Platelet Count 246 Mean Platelet Volume 9.6 Neutrophils % 75.1 Lymphocytes % 16.2 Monocytes % 6.7 Eosinophils % 0.9 Basophils % 0.6 Nucleated Red Blood Cells % 0.0 Neutrophils # 8.2 H Lymphocytes # 1.8 Monocytes # 0.7 Eosinophils # 0.1 Basophils # 0.1 Nucleated Red Blood Cells # 0.0 Sodium Level 138 Potassium Level 5.0 Chloride Level 96 L Carbon Dioxide Level 31 Anion Gap 16 Blood Urea Nitrogen 9 Creatinine 0.62 Glucose Level 118 Calcium Level 8.7 Medications Medications Current Medications Hydromorphone HCl (Dilaudid [employer]) 0 MG/HR CONTINUOUS RATE ... Q4PCA IV Last administered on 10/24/16t 22:47; Admin Dose 6 MG; Start 10/23/16 at 12:30 Hydromorphone HCl (Dilaudid) 1 mg Q2HWA PRN IV PAIN LEVEL 6-10; Start 10/23/16 at 12:00 Ondansetron HCl (Zofran Inj) 4 mg Q6H PRN IV NAUSEA AND/OR VOMITING Last administered on 10/23/16 13:41; Admin Dose 4 MG; Start 10/23/16 at 12:00 Famotidine 20 mg 20 mg Q12 IV Last administered on 10/25/16 09:07; Admin Dose 20 MG; Start 10/23/16 at 21:00 Potassium Chloride 20 meq/ Lactated Ringer's 1,000 ml @ 125 mls/hr Q8H IV Last administered on 10/25/16 00:12; Admin Dose 125 MLS/HR; Start 10/23/16 at 12:30 Cefazolin Sodium (Ancef 1 Gm/50 ml (Pmx)) 50 ml @ 100 mls/hr Q8 IVPB Last administered on 10/25/16 05:44; Admin Dose 100 MLS/HR; Start 10/23/16 at 14:00 Hydralazine HCl (Apresoline) 10 mg Q4H PRN IV SBP >160, DBP >95; Start at 18:30 Pantoprazole (Protonix Iv) 40 mg DAILY@06 IV Last administered on 10/25/16 05: 44; Admin Dose 40 MG; Start 10/24/16 at 16:30 JEFF PALOMINO MD Oct 25, 2016 15:02
[2016-10-25] MEDS: HYDROmorphONE 0.2 MG/ML PCA IV SCH (15:27)
--- NOTE | 2016-10-25 18:19 | PN ---
Date/Time of Note Date/Time of Note DATE: 10/25/16 TIME: 18:15 Assessment/Plan VTE Prophylaxis VTE Prophylaxis Intervention: other Lines/Catheters IV Catheter Type (from Nrsg): Peripheral IV Urinary Cath still in place: Yes Assessment/Plan Assessment/Plan Ovarian cancer with primary chemo rx completed. - per surgery - pain control roxane Phelps/staff Subjective 24 Hr Interval Summary Free Text/Dictation 1610- patient seen/assessed. dw staff Constitutional: no complaints Eyes: no complaints ENT: no complaints Respiratory: no complaints Cardiovascular: no complaints Gastrointestinal: nausea Genitourinary: no complaints Musculoskeletal: no complaints Skin: no complaints Exam/Review of Systems Vital Signs Vitals Vital Signs Date Time Temp Pulse Resp B/P Pulse Ox O2 Delivery O2 Flow Rate FiO2 10/25/16 17:39 86 20 96 Nasal Cannula 2.0 10/25/16 08:50 99.3 103/53 Intake and Output 10/24/16 10/24/16 10/25/16 14:59 22:59 06:59 Intake Total 50 ml 1360 ml 1410 ml Output Total 1040 ml 2010 ml Balance 50 ml 320 ml -600 ml Exam Constitutional: alert, oriented, well developed Respiratory: clear to auscultation, normal air movement Cardiovascular: nl pulses, regular rate and rhythm Gastrointestinal: other, soft Results Result Diagram: 10/25/16 0509 10/25/16 0509 Results 24 hrs Laboratory Tests Test 10/25/16 05:09 White Blood Count 10.9 H Red Blood Count 3.67 L Hemoglobin 10.4 L Hematocrit 31.0 L Mean Corpuscular Volume 84.5 Mean Corpuscular Hemoglobin 28.3 L Mean Corpuscular Hemoglobin Concent 33.5 Red Cell Distribution Width 13.2 Platelet Count 246 Mean Platelet Volume 9.6 Neutrophils % 75.1 Lymphocytes % 16.2 Monocytes % 6.7 Eosinophils % 0.9 Basophils % 0.6 Nucleated Red Blood Cells % 0.0 Neutrophils # 8.2 H Lymphocytes # 1.8 Monocytes # 0.7 Eosinophils # 0.1 Basophils # 0.1 Nucleated Red Blood Cells # 0.0 Sodium Level 138 Potassium Level 5.0 Chloride Level 96 L Carbon Dioxide Level 31 Anion Gap 16 Blood Urea Nitrogen 9 Creatinine 0.62 Glucose Level 118 Calcium Level 8.7 Medications Medications Current Medications Hydromorphone HCl (Dilaudid [employer]) 0 MG/HR CONTINUOUS RATE ... Q4PCA IV Last administered on 10/25/16 15:27; Admin Dose 6 MG; Start 10/23/16 at 12:30 Hydromorphone HCl (Dilaudid) 1 mg Q2HWA PRN IV PAIN LEVEL 6-10; Start 10/23/16 at 12:00 Ondansetron HCl (Zofran Inj) 4 mg Q6H PRN IV NAUSEA AND/OR VOMITING Last administered on 10/23/16 13:41; Admin Dose 4 MG; Start 10/23/16 at 12:00 Famotidine 20 mg 20 mg Q12 IV Last administered on 10/25/16 09:07; Admin Dose 20 MG; Start 10/23/16 at 21:00 Cefazolin Sodium (Ancef 1 Gm/50 ml (Pmx)) 50 ml @ 100 mls/hr Q8 IVPB Last administered on 10/25/16 15:23; Admin Dose 100 MLS/HR; Start 10/23/16 at 14:00 Hydralazine HCl (Apresoline) 10 mg Q4H PRN IV SBP >160, DBP >95; Start at 18:30 Pantoprazole 40 mg 40 mg DAILY@06 IV Last administered on 10/25/16 05:44; Admin Dose 40 MG; Start 10/24/16 at 16:30 Lactated Ringer's (Lr) 1,000 ml @ 125 mls/hr Q8H IV ; Start 10/25/16 at 18:30 YFN BRIAN Oct 25, 2016 18:19
[2016-10-25] MEDS: LACTATED RINGER'S 1,000 ML IV SCH (18:37)
[2016-10-25 19:21] VITALS: BP 126/56; RESP 16
--- NOTE | 2016-10-25 21:07 | OPR ---
Date/Time of Note Date/Time of Note DATE: 10/25/16 TIME: 21:06 Operative Report Free Text/Dictation 1 OPERATIVE REPORT [facility] Name: Griselda Guardado Date: 10/23/16 Preoperative Diagnosis: Ovarian cancer s/p primary therapy Postoperative Diagnosis: same with pathology pending Procedures: 1-Reassessment laparotomy 2- Right ureteral dissection 3- Portal node dissection 4- Ventral hernia repair Surgeon: Dr. Hayes [employer] Civil Engineer: Dr. Michelle Anesthesia: General Indication for surgery: After the 61 year old patient completed her chemotherapy she was disease-free on the basis of markers and a recent PET/CT scan. After discussing all options with risks and benefits we decided on a reassessment laparotomy to determine the need for alternative platin-based multi-agent chemotherapy versus maintaining therapy with taxol or avastin. Summary and Findings After exploration and extensive enterolysis no gross persistent disease was noted per frozen section and multiple biopsies were taken and areas of greatest risk including the portal silvio area. The patient tolerated the procedure well. Findings and Procedure: Name: Griselda Guardado After being prepped and draped in the usual manner a midline skin incision was made of appropriate length. The electrocautery was then used to dissect thru the adipose tissue to the level of the fascia. We then extended the incision and encountered fascia. The fascia was cut with a scalpel. At this time the peritoneum was elevated and incised with a Metzenbaum scissors. Upon entering the peritoneal cavity no ascetic fluid was removed and we observed considerable adhesions. Minimal enterolysis was necessary; adhesions that were present required careful dissection with repair of sero-muscular defects with interrupted suture of 3-0 silk suture. Multiple biopsies of small areas of granular tissue were taken by the frozen sections were negative. At this time adhesions of intestine to the anterior abdominal wall were lysed with great care. Multiple biopsies were taken. At this time, we ran the entire bowel. When dissecting the large bowel from the gutters and the small bowel from the pelvis it was not possible to avoid sero-muscular injury. The defects were oversewn with interrupted suture using 3-0 silk. All adhesions were cut with great care using sharp dissection. Multiple biopsies were taken throughout the length of the bowel as well as the missing mesentery and terminal ileum was densely adherent to the sidewall. The right retroperitoneum was then opened laterally with sharp dissection and the vasculature palpated. Subsequently a right angle and peanut was used to open and identify the vasculature after which the ureter was identified and mild hydroureter noted. Subsequently the right angle and peanut were used and a ureteral dissection with repositioning was completed and some mobilization accomplished digitally, permitting the small densely adherent to the sidewall to be dissected and mobilized with sharp dissection and a peanut as the ureter was visualized. Any sero-muscular defects encountered were repaired with interrupted 3-0 Silk suture. Additionally, the ureter was further dissected and the ureterolysis was completed to the area of stricture due to scar tissue and adjacent silvio tissue sent to pathology and adjacent tissue ablated with the argon beam radiology receptionist at low wattage. Subsequently the terminal ileum was inspected and additional biopsied taken as well as the pelvis. Additionally, Name: [facility] multiple biopsies were taken throughout the upper abdomen, including the diaphragm after lysis of adhesions. We then took multiple biopsies of both gutter regions and thoroughly evaluated the ascending and descending colon. Biopsies of adhesions in these areas were taken. We then addressed the pelvis. Any remaining scar tissue was thoroughly dissected. Again, any tissue with abnormal texture or appearance was thoroughly biopsied. Finally, washings were taken with the normal saline. We then addressed the exposure and excised some high aorto-caval nodes with adequate exposure. Subsequently, the retractors and exposure were adjusted and the portal area was visualized , and considerable enterolysis was needed during which the vasculature was appreciated and identified with a Doppler and palpated and a solitary enlarged portal node was removed with sharp dissection and a right angle and peanut and sent to pathology pending intact. At this time, after all packing was removed, the abdomen thoroughly irrigated, hemostasis confirmed. At this time the antiadhesion substance Seprafilm was placed uneventfully. At this time , fascial edges were exposed by resecting the ventral hernia sac with the Ligasure and electrocautery. The hernia sac was sent to pathology. A figure of eight suture was placed at the caudal apex of the incision with 1 Prolene suture and used for exposure by elevating with a Pean clamp. A continuous suture of 1 Prolene suture was used from the rostral apex and run to the supra- pubic area. The final 1- Prolene suture suture was tied appropriately, after which the figure of eight was tied. The subcutaneous tissue was irrigated and the skin was closed with skin clips. The sponge, needle, and instrument were correct two times. The estimated blood loss was 100 cc. The patient tolerated the procedure well and left the OR in good condition. Lalit Hayes M.D. LALIT HAYES MD Oct 25, 2016 21:07
[2016-10-26] MEDS: LACTATED RINGER'S 1,000 ML IV SCH ×4 (02:52→21:06)
[2016-10-26] MEDS: PANTOPRAZOLE 40 MG INJ IV SCH (05:16)
[2016-10-26] MEDS: CEFAZOLIN 1 GM/50 ML (PMX) 50 ML IVPB SCH ×3 (05:16→21:06)
[2016-10-26 05:20] LABS: ADD SCAN DIFF NO
[2016-10-26 05:27] LABS: BASOPHILS % 0.5 % (0.0-2.0); EOSINOPHILS # 0.1 10^3/ul (0.0-0.5); EOSINOPHILS % 1.4 % (0.0-7.0); HEMATOCRIT 31.1 % (37.0-47.0); HEMOGLOBIN 10.4 g/dl (12.0-16.0); LYMPHOCYTES # 1.3 10^3/ul (0.8-2.9); LYMPHOCYTES % 15.1 % (15.0-51.0); MEAN CORPUSCULAR HEMOGLOBIN 28.1 pg (29.0-33.0); MEAN CORPUSCULAR HGB CONC 33.4 g/dl (32.0-37.0); MEAN CORPUSCULAR VOLUME 84.1 fl (82.0-101.0); MEAN PLATELET VOLUME 9.6 fl (7.4-10.4); MONOCYTE # 0.6 10^3/ul (0.3-0.9); MONOCYTES % 6.7 % (0.0-11.0); NEUTROPHIL # 6.7 10^3/ul (1.6-7.5); NEUTROPHILS % 75.8 % (39.0-77.0); PLATELET COUNT 249 10^3/UL (140-415); RED CELL DISTRIBUTION WIDTH 13.2 % (11.5-14.5); WHITE BLOOD COUNT 8.9 10^3/ul (4.8-10.8)
[2016-10-26 05:53] LABS: INR 1.17; PT RATIO 1.2
[2016-10-26 06:09] LABS: CALCIUM 8.8 mg/dl (8.4-10.2); CREATININE 0.6 mg/dl (0.44-1.00); POTASSIUM 3.7 mmol/L (3.5-5.1)
[2016-10-26 08:03] VITALS: BP 153/70; RESP 16
[2016-10-26] MEDS: FAMOTIDINE 20 MG INJ IV SCH ×2 (08:37→21:06)
[2016-10-26] MEDS: ONDANSETRON 4 MG INJ IV PRN ×2 (12:07→18:30)
[2016-10-26] MEDS: HYDROCODONE/APAP (5/325) TAB PO PRN (13:56)
--- NOTE | 2016-10-26 18:15 | PN ---
Date/Time of Note Date/Time of Note DATE: 10/26/16 TIME: 18:14 Assessment/Plan VTE Prophylaxis VTE Prophylaxis Intervention: SCD's Lines/Catheters IV [facility]ter Type (from [facility]): Peripheral IV Urinary Cath still in place: No Assessment/Plan Chief Complaint/Hosp Course Patient was able to ambulate to the restroom, pain is well controlled, denies any nausea vomiting denies fevers. Assessment/Plan Ovarian cancer s/p initial surgery followed by carboplatin and Taxol. Patient underwent staging and restaging procedure by Dr. Hayes. Follow-up surgical recommendation. Advance diet diet per surgery. Continue [place] and Dilaudid as needed for pain. Further recommendations based on clinical course. Plan of care discussed with Dr. Phelps. Problems: Exam/Review of Systems Vital Signs Vitals Vital Signs Date Time Temp Pulse Resp B/P Pulse Ox O2 Delivery O2 Flow Rate FiO2 10/26/16 16:22 2.0 10/26/16 08:15 18 10/26/16 08:03 98.3 88 153/70 93 10/25/16 23:39 Nasal Cannula Intake and Output 10/25/16 10/25/16 10/26/16 15:00 23:00 07:00 Intake Total 250 ml 1750 ml Output Total 1200 ml 960 ml Balance -950 ml 790 ml Exam Constitutional: alert, oriented Head: normocephalic Neck: supple Respiratory: normal air movement Cardiovascular: nl pulses Gastrointestinal: other (Status post surgery), soft Extremities: normal pulses Neurological: nl mental status Results Result Diagram: 10/26/16 0430 10/26/16 0430 Results 24 hrs Laboratory Tests Test 10/26/16 04:30 White Blood Count 8.9 Red Blood Count 3.70 L Hemoglobin 10.4 L Hematocrit 31.1 L Mean Corpuscular Volume 84.1 Mean Corpuscular Hemoglobin 28.1 L Mean Corpuscular Hemoglobin Concent 33.4 Red Cell Distribution Width 13.2 Platelet Count 249 Mean Platelet Volume 9.6 Neutrophils % 75.8 Lymphocytes % 15.1 Monocytes % 6.7 Eosinophils % 1.4 Basophils % 0.5 Nucleated Red Blood Cells % 0.0 Neutrophils # 6.7 Lymphocytes # 1.3 Monocytes # 0.6 Eosinophils # 0.1 Basophils # 0.0 Nucleated Red Blood Cells # 0.0 Prothrombin Time 15.0 H Prothrombin Time Ratio 1.2 INR International Normalized Ratio 1.17 Sodium Level 136 Potassium Level 3.7 Chloride Level 98 Carbon Dioxide Level 29 Anion Gap 13 Blood Urea Nitrogen 8 Creatinine 0.60 Glucose Level 99 Calcium Level 8.8 Medications Medications Current Medications Hydromorphone HCl (Dilaudid) 1 mg Q2HWA PRN IV PAIN LEVEL 6-10; Start 10/23/16 at 12:00 Ondansetron HCl (Zofran Inj) 4 mg Q6H PRN IV NAUSEA AND/OR VOMITING Last administered on 10/26/16 12:07; Admin Dose 4 MG; Start 10/23/16 at 12:00 Famotidine 20 mg 20 mg Q12 IV Last administered on 10/26/16 08:37; Admin Dose 20 MG; Start 10/23/16 at 21:00 Cefazolin Sodium (Ancef 1 Gm/50 ml (Pmx)) 50 ml @ 100 mls/hr Q8 IVPB Last administered on 10/26/16 13:56; Admin Dose 100 MLS/HR; Start 10/23/16 at 14:00 Hydralazine HCl (Apresoline) 10 mg Q4H PRN IV SBP >160, DBP >95; Start at 18:30 Pantoprazole 40 mg 40 mg DAILY@06 IV Last administered on 10/26/16 05:16; Admin Dose 40 MG; Start 10/24/16 at 16:30 Lactated Ringer's (Lr) 1,000 ml @ 125 mls/hr Q8H IV Last administered on 12:09; Admin Dose 125 MLS/HR; Start 10/25/16 at 18:30 Hydromorphone HCl (Dilaudid) 0.5 mg Q4H PRN IV PAIN; Start 10/26/16 at 13:30 Acetaminophen/ Hydrocodone Bitart ([place] (5/325)) 1 tab Q4H PRN PO PAIN LEVEL 4 -7; Start 10/26/16 at 13:30 Acetaminophen/ Hydrocodone Bitart ([place] (5/325)) 2 tab Q4H PRN PO PAIN LEVEL 7 -10 Last administered on 10/26/16 13:56; Admin Dose 2 TAB; Start 10/26/16 at 13 :30 MATHIEU WALSH Oct 26, 2016 18:15
[2016-10-26] MEDS: HYDROmorphONE 1 MG/ML SYG IV PRN ×2 (18:29→22:29)
[2016-10-26 19:13] VITALS: BP 130/60; RESP 18
[2016-10-27] MEDS: HYDROmorphONE 1 MG/ML SYG IV PRN ×4 (02:19→23:09)
[2016-10-27] MEDS: LACTATED RINGER'S 1,000 ML IV SCH ×2 (02:30→13:28)
[2016-10-27] MEDS: PANTOPRAZOLE 40 MG INJ IV SCH (05:29)
[2016-10-27] MEDS: CEFAZOLIN 1 GM/50 ML (PMX) 50 ML IVPB SCH ×3 (05:29→21:42)
[2016-10-27 05:36] LABS: ADD SCAN DIFF NO
[2016-10-27 05:41] LABS: BASOPHILS % 0.4 % (0.0-2.0); EOSINOPHILS # 0.1 10^3/ul (0.0-0.5); EOSINOPHILS % 1.6 % (0.0-7.0); HEMATOCRIT 31.7 % (37.0-47.0); HEMOGLOBIN 10.8 g/dl (12.0-16.0); LYMPHOCYTES % 14.4 % (15.0-51.0); MEAN CORPUSCULAR HEMOGLOBIN 28.7 pg (29.0-33.0); MEAN CORPUSCULAR HGB CONC 34.1 g/dl (32.0-37.0); MEAN CORPUSCULAR VOLUME 84.3 fl (82.0-101.0); MEAN PLATELET VOLUME 9.8 fl (7.4-10.4); MONOCYTE # 0.4 10^3/ul (0.3-0.9); MONOCYTES % 5.6 % (0.0-11.0); NEUTROPHIL # 5.4 10^3/ul (1.6-7.5); NEUTROPHILS % 77.4 % (39.0-77.0); PLATELET COUNT 287 10^3/UL (140-415); RED BLOOD COUNT 3.76 10^6/ul (4.20-5.40); RED CELL DISTRIBUTION WIDTH 12.8 % (11.5-14.5)
[2016-10-27 06:13] LABS: CALCIUM 8.8 mg/dl (8.4-10.2); CREATININE 0.61 mg/dl (0.44-1.00); POTASSIUM 3.8 mmol/L (3.5-5.1)
[2016-10-27 08:00] VITALS: BP 131/61; RESP 13
[2016-10-27] MEDS: FAMOTIDINE 20 MG INJ IV SCH (10:01)
--- NOTE | 2016-10-27 16:58 | CONS ---
Date/Time of Note Date/Time of Note DATE: 10/27/16 TIME: 16:53 Assessment/Plan Assessment/Plan Additional Assessment/Plan Pt is doing well after surgical reassessment surgery. Path from multiple biopsies is pending. She is walking to bathroom and is very alert and coherent. The only postoperative issue is venous access. Note that she previously required a Portacath to get chemotherapy. Continue postop care per Dr. Palomino. Further treatment to be planned when path is available. Consultation Date/Type/Reason Admit Date/Time Oct 23, 2016 at 05:19 Date of Consultation: Oct 27, 2016 Type of Consultation: oncology Reason for Consultation ovarian cancer Referring Provider: JEFF PALOMINO MD Hx of Present Illness 61 yo woman with ovarian cancer s/p initial surgery followed by carboplatin and Taxol. Two days ago a second look procedure was done. Pathology results are pending. She is doing very well post operatively. Constitutional: no complaints Eyes: no complaints ENT: no complaints Respiratory: no complaints, pleuritic pain Cardiovascular: no complaints Gastrointestinal: nausea Genitourinary: no complaints Musculoskeletal: no complaints Skin: no complaints Social History Smoking Status: Never smoker Exam/Review of Systems Vital Signs Vitals Vital Signs Date Time Temp Pulse Resp B/P Pulse Ox O2 Delivery O2 Flow Rate FiO2 10/27/16 08:00 98.8 81 13 131/61 94 10/26/16 20:19 2.0 10/25/16 23:39 Nasal Cannula Intake and Output 10/26/16 10/26/16 10/27/16 15:00 23:00 07:00 Intake Total 800 ml 1890 ml 590 ml Output Total 600 ml 5 ml Balance 800 ml 1290 ml 585 ml Exam Constitutional: alert, oriented Head: normocephalic Eyes: nl conjunctiva Neck: supple Respiratory: clear to auscultation Cardiovascular: regular rate and rhythm Gastrointestinal: other (s/p surgery) Musculoskeletal: nl extremities to inspection Skin: nl turgor Results Result Diagram: 10/27/162 10/27/16 0442 Results 24 hrs Laboratory Tests Test 10/27/16 04:42 White Blood Count 7.0 # Red Blood Count 3.76 L Hemoglobin 10.8 L Hematocrit 31.7 L Mean Corpuscular Volume 84.3 Mean Corpuscular Hemoglobin 28.7 L Mean Corpuscular Hemoglobin Concent 34.1 Red Cell Distribution Width 12.8 Platelet Count 287 Mean Platelet Volume 9.8 Neutrophils % 77.4 H Lymphocytes % 14.4 L Monocytes % 5.6 Eosinophils % 1.6 Basophils % 0.4 Nucleated Red Blood Cells % 0.0 Neutrophils # 5.4 Lymphocytes # 1.0 Monocytes # 0.4 Eosinophils # 0.1 Basophils # 0.0 Nucleated Red Blood Cells # 0.0 Sodium Level 140 Potassium Level 3.8 Chloride Level 98 Carbon Dioxide Level 31 Anion Gap 15 Blood Urea Nitrogen 9 Creatinine 0.61 Glucose Level 109 Calcium Level 8.8 Medications Medications Current Medications Hydromorphone HCl (Dilaudid) 1 mg Q2HWA PRN IV PAIN LEVEL 6-10 Last administered on 10/27/16 16:35; Admin Dose 1 MG; Start 10/23/16 at 12:00 Ondansetron HCl 4 mg 4 mg Q6H PRN IV NAUSEA AND/OR VOMITING Last administered on 10/26/16 18:30; Admin Dose 4 MG; Start 10/23/16 at 12:00 Cefazolin Sodium (Ancef 1 Gm/50 ml (Pmx)) 50 ml @ 100 mls/hr Q8 IVPB Last administered on 10/27/16 13:28; Admin Dose 100 MLS/HR; Start 10/23/16 at 14:00 Hydralazine HCl (Apresoline) 10 mg Q4H PRN IV SBP >160, DBP >95; Start at 18:30 Pantoprazole 40 mg 40 mg DAILY@06 IV Last administered on 10/27/16 05:29; Admin Dose 40 MG; Start 10/24/16 at 16:30 Lactated Ringer's (Lr) 1,000 ml @ 125 mls/hr Q8H IV Last administered on 13:28; Admin Dose 125 MLS/HR; Start 10/25/16 at 18:30 Hydromorphone HCl (Dilaudid) 0.5 mg Q4H PRN IV PAIN Last administered on 02:19; Admin Dose 0.5 MG; Start 10/26/16 at 13:30 Acetaminophen/ Hydrocodone Bitart ([place] (5/325)) 1 tab Q4H PRN PO PAIN LEVEL 4 -7; Start 10/26/16 at 13:30 Acetaminophen/ Hydrocodone Bitart ([place] (5/325)) 2 tab Q4H PRN PO PAIN LEVEL 7 -10 Last administered on 10/26/16t 13:56; Admin Dose 2 TAB; Start 10/26/16 at 13 :30 JANUARY SHARMA MD Oct 27, 2016 16:58
--- NOTE | 2016-10-27 18:16 | PN ---
Date/Time of Note Date/Time of Note DATE: 10/27/16 TIME: 18:13 Assessment/Plan VTE Prophylaxis VTE Prophylaxis Intervention: SCD's Lines/Catheters IV C[facility]ter Type (from [facility]): Peripheral IV Urinary Cath still in place: No Assessment/Plan Chief Complaint/Hosp Course Patient remains hemodynamically stable, pain is well controlled, continues to use IS, ambulate Assessment/Plan Ovarian cancer s/p initial surgery followed by carboplatin and Taxol. Patient underwent staging and restaging procedure by Dr. Hayes. Follow-up surgical recommendation. Advance diet diet per surgery. Continue [place] and Dilaudid as needed for pain. Further recommendations based on clinical course. End of care discussed with Dr. Phelps. Problems: Exam/Review of Systems Vital Signs Vitals Vital Signs Date Time Temp Pulse Resp B/P Pulse Ox O2 Delivery O2 Flow Rate FiO2 10/27/16 08:00 98.8 81 13 131/61 94 10/26/16 20:19 2.0 10/25/16 23:39 Nasal Cannula Intake and Output 10/26/16 10/26/16 10/27/16 15:00 23:00 07:00 Intake Total 800 ml 1890 ml 590 ml Output Total 600 ml 5 ml Balance 800 ml 1290 ml 585 ml Exam Constitutional: alert, oriented Head: normocephalic Respiratory: normal air movement Cardiovascular: nl pulses Gastrointestinal: other (Status post surgery), soft Extremities: normal pulses Neurological: nl mental status Results Result Diagram: 10/27/16 0442 10/27/16 0442 Results 24 hrs Laboratory Tests Test 10/27/16 04:42 White Blood Count 7.0 # Red Blood Count 3.76 L Hemoglobin 10.8 L Hematocrit 31.7 L Mean Corpuscular Volume 84.3 Mean Corpuscular Hemoglobin 28.7 L Mean Corpuscular Hemoglobin Concent 34.1 Red Cell Distribution Width 12.8 Platelet Count 287 Mean Platelet Volume 9.8 Neutrophils % 77.4 H Lymphocytes % 14.4 L Monocytes % 5.6 Eosinophils % 1.6 Basophils % 0.4 Nucleated Red Blood Cells % 0.0 Neutrophils # 5.4 Lymphocytes # 1.0 Monocytes # 0.4 Eosinophils # 0.1 Basophils # 0.0 Nucleated Red Blood Cells # 0.0 Sodium Level 140 Potassium Level 3.8 Chloride Level 98 Carbon Dioxide Level 31 Anion Gap 15 Blood Urea Nitrogen 9 Creatinine 0.61 Glucose Level 109 Calcium Level 8.8 Medications Medications Current Medications Hydromorphone HCl (Dilaudid) 1 mg Q2HWA PRN IV PAIN LEVEL 6-10 Last administered on 10/27/16 16:35; Admin Dose 1 MG; Start 10/23/16 at 12:00 Ondansetron HCl 4 mg 4 mg Q6H PRN IV NAUSEA AND/OR VOMITING Last administered on 10/26/16 18:30; Admin Dose 4 MG; Start 10/23/16 at 12:00 Cefazolin Sodium (Ancef 1 Gm/50 ml (Pmx)) 50 ml @ 100 mls/hr Q8 IVPB Last administered on 10/27/16 13:28; Admin Dose 100 MLS/HR; Start 10/23/16 at 14:00 Hydralazine HCl (Apresoline) 10 mg Q4H PRN IV SBP >160, DBP >95; Start at 18:30 Pantoprazole 40 mg 40 mg DAILY@06 IV Last administered on 10/27/16 05:29; Admin Dose 40 MG; Start 10/24/16 at 16:30 Lactated Ringer's (Lr) 1,000 ml @ 125 mls/hr Q8H IV Last administered on 13:28; Admin Dose 125 MLS/HR; Start 10/25/16 at 18:30 Hydromorphone HCl (Dilaudid) 0.5 mg Q4H PRN IV PAIN Last administered on 02:19; Admin Dose 0.5 MG; Start 10/26/16 at 13:30 Acetaminophen/ Hydrocodone Bitart ([place] (5/325)) 1 tab Q4H PRN PO PAIN LEVEL 4 -7; Start 10/26/16 at 13:30 Acetaminophen/ Hydrocodone Bitart ([place] (5/325)) 2 tab Q4H PRN PO PAIN LEVEL 7 -10 Last administered on 10/26/16 13:56; Admin Dose 2 TAB; Start 10/26/16 at 13 :30 MATHIEU WALSH Oct 27, 2016 18:16
--- NOTE | 2016-10-27 18:38 | PN ---
Date/Time of Note Date/Time of Note DATE: 10/27/16 TIME: 18:35 Assessment/Plan VTE Prophylaxis VTE Prophylaxis Intervention: SCD's Lines/Catheters IV Catheter Type (from [facility]): Peripheral IV Urinary Cath still in place: No Assessment/Plan Chief Complaint/Hosp Course ovarian cancer /p tootie rx Problems: Assessment/Plan A- doing well P- Adv diet. discuss with IM and Onc. Subjective 24 Hr Interval Summary Free Text/Dictation + flatus and OOB. Exam/Review of Systems Vital Signs Vitals Vital Signs Date Time Temp Pulse Resp B/P Pulse Ox O2 Delivery O2 Flow Rate FiO2 10/27/16 18:33 2.0 10/27/16 08:00 98.8 81 13 131/61 94 10/25/16 23:39 Nasal Cannula Intake and Output 10/26/16 10/26/16 10/27/16 15:00 23:00 07:00 Intake Total 800 ml 1890 ml 590 ml Output Total 600 ml 5 ml Balance 800 ml 1290 ml 585 ml Exam Resp- clear CVS- NSR Abd- soft Ext- nt no edema Results Result Diagram: 10/27/16 0442 10/27/16 0442 Results 24 hrs Laboratory Tests Test 10/27/16 04:42 White Blood Count 7.0 # Red Blood Count 3.76 L Hemoglobin 10.8 L Hematocrit 31.7 L Mean Corpuscular Volume 84.3 Mean Corpuscular Hemoglobin 28.7 L Mean Corpuscular Hemoglobin Concent 34.1 Red Cell Distribution Width 12.8 Platelet Count 287 Mean Platelet Volume 9.8 Neutrophils % 77.4 H Lymphocytes % 14.4 L Monocytes % 5.6 Eosinophils % 1.6 Basophils % 0.4 Nucleated Red Blood Cells % 0.0 Neutrophils # 5.4 Lymphocytes # 1.0 Monocytes # 0.4 Eosinophils # 0.1 Basophils # 0.0 Nucleated Red Blood Cells # 0.0 Sodium Level 140 Potassium Level 3.8 Chloride Level 98 Carbon Dioxide Level 31 Anion Gap 15 Blood Urea Nitrogen 9 Creatinine 0.61 Glucose Level 109 Calcium Level 8.8 Medications Medications Current Medications Hydromorphone HCl (Dilaudid) 1 mg Q2HWA PRN IV PAIN LEVEL 6-10 Last administered on 10/27/16t 16:35; Admin Dose 1 MG; Start 10/23/16 at 12:00 Ondansetron HCl 4 mg 4 mg Q6H PRN IV NAUSEA AND/OR VOMITING Last administered on 10/26/16 18:30; Admin Dose 4 MG; Start 10/23/16 at 12:00 Cefazolin Sodium (Ancef 1 Gm/50 ml (Pmx)) 50 ml @ 100 mls/hr Q8 IVPB Last administered on 10/27/16 13:28; Admin Dose 100 MLS/HR; Start 10/23/16 at 14:00 Hydralazine HCl (Apresoline) 10 mg Q4H PRN IV SBP >160, DBP >95; Start at 18:30 Pantoprazole 40 mg 40 mg DAILY@06 IV Last administered on 10/27/16 05:29; Admin Dose 40 MG; Start 10/24/16 at 16:30 Lactated Ringer's (Lr) 1,000 ml @ 125 mls/hr Q8H IV Last administered on 13:28; Admin Dose 125 MLS/HR; Start 10/25/16 at 18:30 Hydromorphone HCl (Dilaudid) 0.5 mg Q4H PRN IV PAIN Last administered on 02:19; Admin Dose 0.5 MG; Start 10/26/16 at 13:30 Acetaminophen/ Hydrocodone Bitart ([place] (5/325)) 1 tab Q4H PRN PO PAIN LEVEL 4 -7; Start 10/26/16 at 13:30 Acetaminophen/ Hydrocodone Bitart ([place] (5/325)) 2 tab Q4H PRN PO PAIN LEVEL 7 -10 Last administered on 10/26/16 13:56; Admin Dose 2 TAB; Start 10/26/16 at 13 :30 JEFF PALOMINO MD Oct 27, 2016 18:37
[2016-10-27 18:59] VITALS: BP 135/61; RESP 18
[2016-10-28] MEDS: PANTOPRAZOLE 40 MG INJ IV SCH (05:32)
[2016-10-28] MEDS: CEFAZOLIN 1 GM/50 ML (PMX) 50 ML IVPB SCH ×3 (05:32→21:20)
[2016-10-28 05:47] LABS: ADD SCAN DIFF NO
[2016-10-28 05:51] LABS: BASOPHILS % 0.5 % (0.0-2.0); EOSINOPHILS # 0.2 10^3/ul (0.0-0.5); EOSINOPHILS % 2.6 % (0.0-7.0); HEMATOCRIT 32.8 % (37.0-47.0); HEMOGLOBIN 11.1 g/dl (12.0-16.0); LYMPHOCYTES # 1.4 10^3/ul (0.8-2.9); MEAN CORPUSCULAR HEMOGLOBIN 28.1 pg (29.0-33.0); MEAN CORPUSCULAR HGB CONC 33.8 g/dl (32.0-37.0); MEAN PLATELET VOLUME 9.7 fl (7.4-10.4); MONOCYTE # 0.5 10^3/ul (0.3-0.9); MONOCYTES % 7.9 % (0.0-11.0); NEUTROPHIL # 4.3 10^3/ul (1.6-7.5); NEUTROPHILS % 67.4 % (39.0-77.0); PLATELET COUNT 308 10^3/UL (140-415); RED BLOOD COUNT 3.95 10^6/ul (4.20-5.40); RED CELL DISTRIBUTION WIDTH 12.9 % (11.5-14.5); WHITE BLOOD COUNT 6.4 10^3/ul (4.8-10.8)
[2016-10-28 06:23] LABS: CALCIUM 9.4 mg/dl (8.4-10.2); CREATININE 0.54 mg/dl (0.44-1.00); POTASSIUM 3.7 mmol/L (3.5-5.1)
[2016-10-28 08:10] VITALS: BP 137/62; RESP 18
[2016-10-28] MEDS: LACTATED RINGER'S 1,000 ML IV SCH (10:58)
[2016-10-28] MEDS: HYDROCODONE/APAP (5/325) TAB PO PRN ×3 (12:00→21:24)
[2016-10-28] MEDS: ONDANSETRON 4 MG INJ IV PRN (12:06)
[2016-10-28] MEDS ORDERED: KETOROLAC 15 MG INJ IV PRN (14:00)
--- NOTE | 2016-10-28 14:19 | PN ---
Date/Time of Note Date/Time of Note DATE: 10/28/16 TIME: 14:12 Assessment/Plan VTE Prophylaxis VTE Prophylaxis Intervention: SCD's Lines/Catheters IV Catheter Type (from Nrs): Peripheral IV Central line still needed: Yes Urinary Cath still in place: No Assessment/Plan Chief Complaint/Hosp Course Patient is able to tolerate diet, small BM today earlier, patient still complains of nausea and abdominal pain which is well controlled with current pain medication. Patient has an abdominal surgical drain. Possible DC tomorrow if patient's continues to improve. Assessment/Plan Ovarian cancer s/p initial surgery followed by carboplatin and Taxol. Patient underwent staging and restaging procedure by Dr. Hayes. Follow-up surgical recommendation. Continue [place] and and Toradol as needed for pain, Zofran as needed for nausea. Further recommendations based on clinical course. Plan of care discussed with Dr. Phelps. Problems: Exam/Review of Systems Vital Signs Vitals Vital Signs Date Time Temp Pulse Resp B/P Pulse Ox O2 Delivery O2 Flow Rate FiO2 10/28/16 08:10 98.3 76 18 137/62 92 10/28/16 03:24 2.0 10/25/16 23:39 Nasal Cannula Intake and Output 10/27/16 10/27/16 10/28/16 15:00 23:00 07:00 Intake Total 1050 ml 1800 ml 840 ml Output Total 1120 ml 15 ml Balance 1050 ml 680 ml 825 ml Exam Constitutional: alert, oriented Head: normocephalic Respiratory: normal air movement Cardiovascular: nl pulses Gastrointestinal: other (Status post surgery), soft Extremities: normal pulses Neurological: nl mental status Results Result Diagram: 10/28/16 0456 10/28/16 0456 Results 24 hrs Laboratory Tests Test 10/28/16 04:56 10/28/16 05:41 White Blood Count 6.4 Red Blood Count 3.95 L Hemoglobin 11.1 L Hematocrit 32.8 L Mean Corpuscular Volume 83.0 Mean Corpuscular Hemoglobin 28.1 L Mean Corpuscular Hemoglobin Concent 33.8 Red Cell Distribution Width 12.9 Platelet Count 308 Mean Platelet Volume 9.7 Neutrophils % 67.4 Lymphocytes % 21.0 Monocytes % 7.9 Eosinophils % 2.6 Basophils % 0.5 Nucleated Red Blood Cells % 0.0 Neutrophils # 4.3 Lymphocytes # 1.4 Monocytes # 0.5 Eosinophils # 0.2 Basophils # 0.0 Nucleated Red Blood Cells # 0.0 Sodium Level 140 Potassium Level 3.7 Chloride Level 96 L Carbon Dioxide Level 30 Anion Gap 18 H Blood Urea Nitrogen 10 Creatinine 0.54 Glucose Level 118 Calcium Level 9.4 Lab Scanned Report REFERENCE LAB Medications Medications Current Medications Ondansetron HCl 4 mg 4 mg Q6H PRN IV NAUSEA AND/OR VOMITING Last administered on 10/28/16 12:06; Admin Dose 4 MG; Start 10/23/16 at 12:00 Cefazolin Sodium (Ancef 1 Gm/50 ml (Pmx)) 50 ml @ 100 mls/hr Q8 IVPB Last administered on 10/28/16 13:37; Admin Dose 100 MLS/HR; Start 10/23/16 at 14:00 Hydralazine HCl (Apresoline) 10 mg Q4H PRN IV SBP >160, DBP >95; Start at 18:30 Pantoprazole 40 mg 40 mg DAILY@06 IV Last administered on 10/28/16 05:32; Admin Dose 40 MG; Start 10/24/16 at 16:30 Lactated Ringer's (Lr) 1,000 ml @ 60 mls/hr [id number] IV Last administered on 13:28; Admin Dose 125 MLS/HR; Start 10/25/16 at 18:30 Acetaminophen/ Hydrocodone Bitart ([place] (5/325)) 1 tab Q4H PRN PO PAIN LEVEL 4 -7 Last administered on 10/28/16 13:41; Admin Dose 1 TAB; Start 10/26/16 at 13: 30 Acetaminophen/ Hydrocodone Bitart ([place] (5/325)) 2 tab Q4H PRN PO PAIN LEVEL 7 -10 Last administered on 10/26/16 13:56; Admin Dose 2 TAB; Start 10/26/16 at 13 :30 Ketorolac Tromethamine (Toradol) 15 mg Q6H PRN IV PAIN; Start 10/28/16 at 14:00 MATHIEU WALSH Oct 28, 2016 14:19
--- NOTE | 2016-10-28 18:44 | PN ---
Date/Time of Note Date/Time of Note DATE: 10/28/16 TIME: 18:37 Assessment/Plan VTE Prophylaxis VTE Prophylaxis Intervention: SCD's Lines/Catheters IV Catheter Type (from [facility] Peripheral IV Urinary Cath still in place: No Assessment/Plan Chief Complaint/Hosp Course Ovarian Carcinoma. S/P "2nd look" surgery. Problems: (1) Ovarian cancer in remission Assessment/Plan Path demonstrates no evidence of malignancy. Decision re: maintenance therapy will be made by Dr Jeff/Sidney Subjective 24 Hr Interval Summary Free Text/Dictation States that she is feeling well. Pain is under good control. Appetite is returning. Has had no N/V. Is ambulating. Exam/Review of Systems Vital Signs Vitals Vital Signs Date Time Temp Pulse Resp B/P Pulse Ox O2 Delivery O2 Flow Rate FiO2 10/28/16 08:10 98.3 76 18 137/62 92 10/28/16 03:24 2.0 10/25/16 23:39 Nasal Cannula Intake and Output 10/27/16 10/27/16 10/28/16 15:00 23:00 07:00 Intake Total 1050 ml 1800 ml 840 ml Output Total 1120 ml 15 ml Balance 1050 ml 680 ml 825 ml Exam Constitutional: alert, oriented, well developed Psych: nl mood/affect, no complaints Head: atraumatic, normocephalic Eyes: EOMI, nl conjunctiva, nl lids ENMT: nl external ears & nose, nl lips & teeth, nl nasal mucosa & septum Neck: non-tender, supple Respiratory: clear to auscultation, normal air movement Cardiovascular: nl pulses, regular rate and rhythm Gastrointestinal: nl liver, spleen, other (post op), soft Musculoskeletal: nl extremities to inspection, nl gait and stance Extremities: normal pulses Neurological: SYSTEMS COORDINATOR II-XII intact, nl mental status, nl speech Skin: nl turgor Lymph: nl lymph nodes Results Result Diagram: 10/28/16 0456 10/28/16 0456 Results 24 hrs Laboratory Tests Test 10/28/16 04:56 10/28/16 05:41 White Blood Count 6.4 Red Blood Count 3.95 L Hemoglobin 11.1 L Hematocrit 32.8 L Mean Corpuscular Volume 83.0 Mean Corpuscular Hemoglobin 28.1 L Mean Corpuscular Hemoglobin Concent 33.8 Red Cell Distribution Width 12.9 Platelet Count 308 Mean Platelet Volume 9.7 Neutrophils % 67.4 Lymphocytes % 21.0 Monocytes % 7.9 Eosinophils % 2.6 Basophils % 0.5 Nucleated Red Blood Cells % 0.0 Neutrophils # 4.3 Lymphocytes # 1.4 Monocytes # 0.5 Eosinophils # 0.2 Basophils # 0.0 Nucleated Red Blood Cells # 0.0 Sodium Level 140 Potassium Level 3.7 Chloride Level 96 L Carbon Dioxide Level 30 Anion Gap 18 H Blood Urea Nitrogen 10 Creatinine 0.54 Glucose Level 118 Calcium Level 9.4 Lab Scanned Report REFERENCE LAB Medications Medications Current Medications Ondansetron HCl 4 mg 4 mg Q6H PRN IV NAUSEA AND/OR VOMITING Last administered on 10/28/16 12:06; Admin Dose 4 MG; Start 10/23/16 at 12:00 Cefazolin Sodium (Ancef 1 Gm/50 ml (Pmx)) 50 ml @ 100 mls/hr Q8 IVPB Last administered on 10/28/16 13:37; Admin Dose 100 MLS/HR; Start 10/23/16 at 14:00 Hydralazine HCl (Apresoline) 10 mg Q4H PRN IV SBP >160, DBP >95; Start at 18:30 Pantoprazole 40 mg 40 mg DAILY@06 IV Last administered on 10/28/16 05:32; Admin Dose 40 MG; Start 10/24/16 at 16:30 Lactated Ringer's (Lr) 1,000 ml @ 60 mls/hr [id number] IV Last administered on 13:28; Admin Dose 125 MLS/HR; Start 10/25/16 at 18:30 Acetaminophen/ Hydrocodone Bitart ([place] (5/325)) 1 tab Q4H PRN PO PAIN LEVEL 4 -7 Last administered on 10/28/16 13:41; Admin Dose 1 TAB; Start 10/26/16 at 13: 30 Acetaminophen/ Hydrocodone Bitart ([place] (5/325)) 2 tab Q4H PRN PO PAIN LEVEL 7 -10 Last administered on 10/26/16 13:56; Admin Dose 2 TAB; Start 10/26/16 at 13 :30 Ketorolac Tromethamine (Toradol) 15 mg Q6H PRN IV PAIN; Start 10/28/16 at 14:00 DAVID MESA MD Oct 28, 2016 18:44
[2016-10-28 19:51] VITALS: BP 126/60; RESP 18
--- NOTE | 2016-10-28 20:14 | PN ---
Date/Time of Note Date/Time of Note DATE: 10/28/16 TIME: 20:08 Assessment/Plan VTE Prophylaxis VTE Prophylaxis Intervention: SCD's Lines/Catheters IV Catheter Type (from Nrs): Peripheral IV Urinary Cath still in place: No Assessment/Plan Chief Complaint/Hosp Course ovarian cancer /p tootie rx Problems: Assessment/Plan A- doing well other than minimal nausea P- drain removed and plan d/c tomorrow if possible. Discussed path and maintenance rx. Subjective 24 Hr Interval Summary Free Text/Dictation Feels better but minimal ongoing nausea. Exam/Review of Systems Vital Signs Vitals Vital Signs Date Time Temp Pulse Resp B/P Pulse Ox O2 Delivery O2 Flow Rate FiO2 10/28/16 19:51 98.2 80 18 126/60 91 10/28/16 03:24 2.0 10/25/16 23:39 Nasal Cannula Intake and Output 10/27/16 10/27/16 10/28/16 15:00 23:00 07:00 Intake Total 1050 ml 1800 ml 840 ml Output Total 1120 ml 15 ml Balance 1050 ml 680 ml 825 ml Exam Rep- clear CVS- nsr Ab- soft nt clean incision Ext- nt no edema Results Result Diagram: 10/28/16 0456 10/28/16 0456 Results 24 hrs Laboratory Tests Test 10/28/16 04:56 10/28/16 05:41 White Blood Count 6.4 Red Blood Count 3.95 L Hemoglobin 11.1 L Hematocrit 32.8 L Mean Corpuscular Volume 83.0 Mean Corpuscular Hemoglobin 28.1 L Mean Corpuscular Hemoglobin Concent 33.8 Red Cell Distribution Width 12.9 Platelet Count 308 Mean Platelet Volume 9.7 Neutrophils % 67.4 Lymphocytes % 21.0 Monocytes % 7.9 Eosinophils % 2.6 Basophils % 0.5 Nucleated Red Blood Cells % 0.0 Neutrophils # 4.3 Lymphocytes # 1.4 Monocytes # 0.5 Eosinophils # 0.2 Basophils # 0.0 Nucleated Red Blood Cells # 0.0 Sodium Level 140 Potassium Level 3.7 Chloride Level 96 L Carbon Dioxide Level 30 Anion Gap 18 H Blood Urea Nitrogen 10 Creatinine 0.54 Glucose Level 118 Calcium Level 9.4 Lab Scanned Report REFERENCE LAB Medications Medications Current Medications Ondansetron HCl 4 mg 4 mg Q6H PRN IV NAUSEA AND/OR VOMITING Last administered on 10/28/16 12:06; Admin Dose 4 MG; Start 10/23/16 at 12:00 Cefazolin Sodium (Ancef 1 Gm/50 ml (Pmx)) 50 ml @ 100 mls/hr Q8 IVPB Last administered on 10/28/16 13:37; Admin Dose 100 MLS/HR; Start 10/23/16 at 14:00 Hydralazine HCl (Apresoline) 10 mg Q4H PRN IV SBP >160, DBP >95; Start at 18:30 Pantoprazole 40 mg 40 mg DAILY@06 IV Last administered on 10/28/16 05:32; Admin Dose 40 MG; Start 10/24/16 at 16:30 Lactated Ringer's (Lr) 1,000 ml @ 60 mls/hr [id number] IV Last administered on 13:28; Admin Dose 125 MLS/HR; Start 10/25/16 at 18:30 Acetaminophen/ Hydrocodone Bitart ([place] (5/325)) 1 tab Q4H PRN PO PAIN LEVEL 4 -7 Last administered on 10/28/16 13:41; Admin Dose 1 TAB; Start 10/26/16 at 13: 30 Acetaminophen/ Hydrocodone Bitart ([place] (5/325)) 2 tab Q4H PRN PO PAIN LEVEL 7 -10 Last administered on 10/26/16 13:56; Admin Dose 2 TAB; Start 10/26/16 at 13 :30 Ketorolac Tromethamine (Toradol) 15 mg Q6H PRN IV PAIN; Start 10/28/16 at 14:00 JEFF PALOMINO MD Oct 28, 2016 20:14
[2016-10-29] MEDS: LACTATED RINGER'S 1,000 ML IV SCH (03:38)
[2016-10-29] MEDS: PANTOPRAZOLE 40 MG INJ IV SCH (05:13)
[2016-10-29] MEDS: CEFAZOLIN 1 GM/50 ML (PMX) 50 ML IVPB SCH ×2 (05:13→14:00)
[2016-10-29 05:25] LABS: ADD SCAN DIFF NO
[2016-10-29 05:29] LABS: BASOPHILS % 0.6 % (0.0-2.0); EOSINOPHILS # 0.2 10^3/ul (0.0-0.5); EOSINOPHILS % 2.6 % (0.0-7.0); HEMATOCRIT 33.1 % (37.0-47.0); LYMPHOCYTES # 1.6 10^3/ul (0.8-2.9); LYMPHOCYTES % 22.9 % (15.0-51.0); MEAN CORPUSCULAR HEMOGLOBIN 27.8 pg (29.0-33.0); MEAN CORPUSCULAR HGB CONC 33.2 g/dl (32.0-37.0); MEAN CORPUSCULAR VOLUME 83.8 fl (82.0-101.0); MEAN PLATELET VOLUME 9.6 fl (7.4-10.4); MONOCYTE # 0.5 10^3/ul (0.3-0.9); MONOCYTES % 7.4 % (0.0-11.0); NEUTROPHIL # 4.5 10^3/ul (1.6-7.5); NEUTROPHILS % 65.2 % (39.0-77.0); PLATELET COUNT 321 10^3/UL (140-415); RED BLOOD COUNT 3.95 10^6/ul (4.20-5.40); RED CELL DISTRIBUTION WIDTH 13.2 % (11.5-14.5); WHITE BLOOD COUNT 6.9 10^3/ul (4.8-10.8)
[2016-10-29 05:59] LABS: CALCIUM 9.2 mg/dl (8.4-10.2); CREATININE 0.62 mg/dl (0.44-1.00); POTASSIUM 3.8 mmol/L (3.5-5.1)
[2016-10-29 07:49] VITALS: BP 122/58; RESP 20
--- NOTE | 2016-10-29 14:58 | PN ---
Date/Time of Note Date/Time of Note DATE: 10/29/16 TIME: 14:55 Assessment/Plan VTE Prophylaxis VTE Prophylaxis Intervention: ambulation Lines/Catheters IV Catheter Type (from [place]): Sal[place] Lock Urinary Cath still in place: No Assessment/Plan Chief Complaint/Hosp Course 61 yo woman with ovarian cancer s/p initial surgery followed by carboplatin and Taxol. Two days ago a second look procedure was done. Pathology results are pending. She is doing very well post operatively. Problems: Assessment/Plan Pt is going to be discharged this afternoon. I asked her to make an appointment for my office next week to start arranging for maintenance chemotherapy. Subjective 24 Hr Interval Summary Free Text/Dictation Pt has been recovering well from her recent surgery. Exam/Review of Systems Vital Signs Vitals Vital Signs Date Time Temp Pulse Resp B/P Pulse Ox O2 Delivery O2 Flow Rate FiO2 10/29/16 07:49 98.4 68 20 122/58 93 10/28/16 03:24 2.0 10/25/16 23:39 Nasal Cannula Intake and Output 10/28/16 10/28/16 10/29/16 15:00 23:00 07:00 Intake Total 50 ml 1640 ml 410 ml Output Total 10 ml 900 ml Balance 40 ml 740 ml 410 ml Exam Constitutional: alert, oriented Head: normocephalic Eyes: nl conjunctiva ENMT: nl external ears & nose Neck: supple Respiratory: clear to auscultation Cardiovascular: regular rate and rhythm Gastrointestinal: other (michael in suture line present. no wound dehiscence or pus noted), soft Lymph: nl lymph nodes Results Result Diagram: 10/29/16 0443 10/29/16 0443 Results 24 hrs Laboratory Tests Test 10/29/16 04:43 White Blood Count 6.9 Red Blood Count 3.95 L Hemoglobin 11.0 L Hematocrit 33.1 L Mean Corpuscular Volume 83.8 Mean Corpuscular Hemoglobin 27.8 L Mean Corpuscular Hemoglobin Concent 33.2 Red Cell Distribution Width 13.2 Platelet Count 321 Mean Platelet Volume 9.6 Neutrophils % 65.2 Lymphocytes % 22.9 Monocytes % 7.4 Eosinophils % 2.6 Basophils % 0.6 Nucleated Red Blood Cells % 0.0 Neutrophils # 4.5 Lymphocytes # 1.6 Monocytes # 0.5 Eosinophils # 0.2 Basophils # 0.0 Nucleated Red Blood Cells # 0.0 Sodium Level 143 Potassium Level 3.8 Chloride Level 101 Carbon Dioxide Level 29 Anion Gap 17 H Blood Urea Nitrogen 13 Creatinine 0.62 Glucose Level 126 Calcium Level 9.2 Medications Medications Current Medications Ondansetron HCl 4 mg 4 mg Q6H PRN IV NAUSEA AND/OR VOMITING Last administered on 10/28/16 12:06; Admin Dose 4 MG; Start 10/23/16 at 12:00 Cefazolin Sodium (Ancef 1 Gm/50 ml (Pmx)) 50 ml @ 100 mls/hr Q8 IVPB Last administered on 10/29/16 05:13; Admin Dose 100 MLS/HR; Start 10/23/16 at 14:00 Hydralazine HCl (Apresoline) 10 mg Q4H PRN IV SBP >160, DBP >95; Start at 18:30 Pantoprazole 40 mg 40 mg DAILY@06 IV Last administered on 10/29/16 05:13; Admin Dose 40 MG; Start 10/24/16 at 16:30 Lactated Ringer's (Lr) 1,000 ml @ 60 mls/hr [id number] IV Last administered on 13:28; Admin Dose 125 MLS/HR; Start 10/25/16 at 18:30 Acetaminophen/ Hydrocodone Bitart ([place] (5/325)) 1 tab Q4H PRN PO PAIN LEVEL 4 -7 Last administered on 10/28/16 13:41; Admin Dose 1 TAB; Start 10/26/16 at 13: 30 Acetaminophen/ Hydrocodone Bitart ([place] (5/325)) 2 tab Q4H PRN PO PAIN LEVEL 7 -10 Last administered on 10/28/16 21:24; Admin Dose 2 TAB; Start 10/26/16 at 13 :30 Ketorolac Tromethamine (Toradol) 15 mg Q6H PRN IV PAIN; Start 10/28/16 at 14:00 JANUARY SHARMA MD Oct 29, 2016 14:58
--- NOTE | 2016-10-29 15:04 | PN ---
Date/Time of Note Date/Time of Note DATE: 10/29/16 TIME: 15:02 Assessment/Plan VTE Prophylaxis VTE Prophylaxis Intervention: other Lines/Catheters IV Catheter Type (from Nrs): Saline Lock Urinary Cath still in place: No Assessment/Plan Assessment/Plan Ovarian cancer s/p initial surgery followed by carboplatin and Taxol. Patient underwent staging and restaging procedure by Dr. Hayes. Follow-up surgical recommendation. Continue [place] and and Toradol as needed for pain, Zofran as needed for nausea. Further recommendations based on clinical course. Plan of care discussed with Dr. Phelps. Subjective 24 Hr Interval Summary Constitutional: improved ENT: no complaints Respiratory: no complaints Cardiovascular: no complaints Gastrointestinal: no complaints Genitourinary: other Musculoskeletal: no complaints Exam/Review of Systems Vital Signs Vitals Vital Signs Date Time Temp Pulse Resp B/P Pulse Ox O2 Delivery O2 Flow Rate FiO2 10/29/16 07:49 98.4 68 20 122/58 93 10/28/16 03:24 2.0 10/25/16 23:39 Nasal Cannula Intake and Output 10/28/16 10/28/16 10/29/16 15:00 23:00 07:00 Intake Total 50 ml 1640 ml 410 ml Output Total 10 ml 900 ml Balance 40 ml 740 ml 410 ml Exam Constitutional: alert, oriented, well developed Respiratory: clear to auscultation, normal air movement Cardiovascular: nl pulses, regular rate and rhythm Gastrointestinal: non-tender, soft Genitourinary - Female: other (sp surgery) Musculoskeletal: nl extremities to inspection Extremities: normal pulses Neurological: nl mental status, nl speech Results Result Diagram: 10/29/16 0443 10/29/163 Results 24 hrs Laboratory Tests Test 10/29/16 04:43 White Blood Count 6.9 Red Blood Count 3.95 L Hemoglobin 11.0 L Hematocrit 33.1 L Mean Corpuscular Volume 83.8 Mean Corpuscular Hemoglobin 27.8 L Mean Corpuscular Hemoglobin Concent 33.2 Red Cell Distribution Width 13.2 Platelet Count 321 Mean Platelet Volume 9.6 Neutrophils % 65.2 Lymphocytes % 22.9 Monocytes % 7.4 Eosinophils % 2.6 Basophils % 0.6 Nucleated Red Blood Cells % 0.0 Neutrophils # 4.5 Lymphocytes # 1.6 Monocytes # 0.5 Eosinophils # 0.2 Basophils # 0.0 Nucleated Red Blood Cells # 0.0 Sodium Level 143 Potassium Level 3.8 Chloride Level 101 Carbon Dioxide Level 29 Anion Gap 17 H Blood Urea Nitrogen 13 Creatinine 0.62 Glucose Level 126 Calcium Level 9.2 Medications Medications Current Medications Ondansetron HCl 4 mg 4 mg Q6H PRN IV NAUSEA AND/OR VOMITING Last administered on 10/28/16 12:06; Admin Dose 4 MG; Start 10/23/16 at 12:00 Cefazolin Sodium (Ancef 1 Gm/50 ml (Pmx)) 50 ml @ 100 mls/hr Q8 IVPB Last administered on 10/29/16 05:13; Admin Dose 100 MLS/HR; Start 10/23/16 at 14:00 Hydralazine HCl (Apresoline) 10 mg Q4H PRN IV SBP >160, DBP >95; Start at 18:30 Pantoprazole 40 mg 40 mg DAILY@06 IV Last administered on 10/29/16 05:13; Admin Dose 40 MG; Start 10/24/16 at 16:30 Lactated Ringer's (Lr) 1,000 ml @ 60 mls/hr [id number] IV Last administered on 13:28; Admin Dose 125 MLS/HR; Start 10/25/16 at 18:30 Acetaminophen/ Hydrocodone Bitart ([place] (5/325)) 1 tab Q4H PRN PO PAIN LEVEL 4 -7 Last administered on 10/28/16 13:41; Admin Dose 1 TAB; Start 10/26/16 at 13: 30 Acetaminophen/ Hydrocodone Bitart ([place] (5/325)) 2 tab Q4H PRN PO PAIN LEVEL 7 -10 Last administered on 10/28/16 21:24; Admin Dose 2 TAB; Start 10/26/16 at 13 :30 Ketorolac Tromethamine (Toradol) 15 mg Q6H PRN IV PAIN; Start 10/28/16 at 14:00 YFN BRIAN Oct 29, 2016 15:03
--- NOTE | 2016-10-29 16:24 | DS ---
Date/Time of Note Date/Time of Note DATE: 10/29/16 TIME: 16:23 Discharge Summary Admission/Discharge Info Admit Date/Time Oct 23, 2016 at 05:19 Discharge Date/Time Patient Condition: Stable Hospital Course Ovarian Carcinoma. S/P "2nd look" surgery. Home Meds Active Scripts Magnesium Citrate* (Citroma*) 300 Ml Soln, 300 ML PO ONCE Y for CONSTIPATION, # 1 BOTTLE Prov:PIPPA BENOIT MD 04/12/16 Reported Medications Aspirin (Low Dose Aspirin) 81 Mg Tablet.dr, 81 MG PO DAILY, #30 TAB 04/12/16 Atorvastatin (Atorvastatin) 10 Mg Tablet, 10 MG PO QHS, #30 TAB 02/05/16 Lisinopril* (Lisinopril*) 5 Mg Tablet, 5 MG PO DAILY, #30 TAB 02/05/16 Omeprazole* (Omeprazole*) 20 Mg Capsule.dr, 20 MG PO DAILY, #30 CAP 02/05/16 Discontinued Reported Medications Bisacodyl* (Dulcolax*) 5 Mg Tablet.dr, 10 MG PO DAILY Y for CONSTIPATION, TAB 04/12/16 Granisetron HCl (Granisetron HCl) 1 Mg/1 Ml Vial, 1 MG IV BID, VIAL PT TAKES A TABLET 04/12/16 Hydrocodone/Acetaminophen ([place] 10-325 Tablet) 1 Each Tablet, 1 EACH PO EVERY 4 -6 HOURS Y for PAIN, TAB 04/12/16 Discontinued Scripts Docusate Sodium* (Colace*) 100 Mg Capsule, 100 MG PO TID Y for CONSTIPATION, # 30 CAP Prov:PIPPA BENOIT MD 04/12/16 Furosemide* (Lasix*) 20 Mg Tablet, 20 MG PO DAILY for 30 Days, TAB Prov:KARIE TAN NP 02/24/16 Primary Care Provider Not On Staff Doctor Pending Labs Laboratory Tests Test 10/29/16 04:43 White Blood Count 6.910^3/ul (4.8-10.8) Red Blood Count 3.9510^6/ul (4.20-5.40) Hemoglobin 11.0g/dl (12.0-16.0) Hematocrit 33.1% (37.0-47.0) Mean Corpuscular Volume 83.8fl (82.0-101.0) Mean Corpuscular Hemoglobin 27.8pg (29.0-33.0) Mean Corpuscular Hemoglobin Concent 33.2g/dl (32.0-37.0) Red Cell Distribution Width 13.2% (11.5-14.5) Platelet Count 26293^3/UL (140-415) Mean Platelet Volume 9.6fl (7.4-10.4) Neutrophils % 65.2% (39.0-77.0) Lymphocytes % 22.9% (15.0-51.0) Monocytes % 7.4% (0.0-11.0) Eosinophils % 2.6% (0.0-7.0) Basophils % 0.6% (0.0-2.0) Nucleated Red Blood Cells % 0.0/100WBC (0.0-0.0) Neutrophils # 4.510^3/ul (1.6-7.5) Lymphocytes # 1.610^3/ul (0.8-2.9) Monocytes # 0.510^3/ul (0.3-0.9) Eosinophils # 0.210^3/ul (0.0-0.5) Basophils # 0.010^3/ul (0.0-0.1) Nucleated Red Blood Cells # 0.010^3/ul (0.0-0.0) Sodium Level 143mmol/L (135-144) Potassium Level 3.8mmol/L (3.5-5.1) Chloride Level 101mmol/L (97-110) Carbon Dioxide Level 29mmol/L (21-31) Anion Gap 17 (8-16) Blood Urea Nitrogen 13mg/dl (7-20) Creatinine 0.62mg/dl (0.44-1.00) Glucose Level 126mg/dl (70-220) Calcium Level 9.2mg/dl (8.4-10.2) YFN BRIAN Oct 29, 2016 16:24
--- NOTE | 2016-10-29 16:27 | PDOCDIS ---
Discharge Instructions HOME CARE INSTRUCTIONS: Diet Instructions: RegularSpecial Diet: Clear Liquid diet ACTIVITY: Activity Restrictions: Slowly Increase Activity Rest between Activity Do not operate Machinery Do not operate Power Tool Avoid Heavy Housework Bathing Restrictions: Tub Bath FOLLOW UP/APPOINTMENTS Follow-up Plan FU with Primary x [address] Jeff/ Dr Ramirez x 1 week Call 911 or go to the nearest hospital if symptoms get worse. Discharge instructions reviewed with Dr yu/staff/patient. YFN BRIAN Oct 29, 2016 16:27
[2016-10-29] MEDS: HYDROCODONE/APAP (5/325) TAB PO PRN (16:28)
== END 2016-10-29 17:17 | disposition home or self-care (01) | DRG 750 ==
LOC: REC 05:19 → MS1 13:27
PROC: 0WQF0ZZ Repair Abdominal Wall, Open Approach (ICD-10-PCS; 2016-10-23)
PROC: 07BC0ZX Excision of Pelvis Lymphatic, Open Approach, Diagnostic (ICD-10-PCS; 2016-10-23)
PROC: 0DB80ZX Excision of Small Intestine, Open Approach, Diagnostic (ICD-10-PCS; 2016-10-23)
PROC: 0DBB0ZX Excision of Ileum, Open Approach, Diagnostic (ICD-10-PCS; 2016-10-23)
PROC: 0DBV0ZX Excision of Mesentery, Open Approach, Diagnostic (ICD-10-PCS; 2016-10-23)
PROC: 0DNE0ZZ Release Large Intestine, Open Approach (ICD-10-PCS; 2016-10-23)
PROC: 0DNW0ZZ Release Peritoneum, Open Approach (ICD-10-PCS; 2016-10-23)
PROC: 0DN80ZZ Release Small Intestine, Open Approach (ICD-10-PCS; 2016-10-23)
PROC: 0TN60ZZ Release Right Ureter, Open Approach (ICD-10-PCS; 2016-10-23)
PROC: 0DBE0ZX Excision of Large Intestine, Open Approach, Diagnostic (ICD-10-PCS; principal; 2016-10-23 08:00)
DX: C56.1 Malignant neoplasm of right ovary (principal); I10 Essential (primary) hypertension; Z92.21 Personal history of antineoplastic chemotherapy; K66.0 Peritoneal adhesions (postprocedural) (postinfection); K43.9 Ventral hernia without obstruction or gangrene; E78.5 Hyperlipidemia, unspecified; R33.9 Retention of urine, unspecified; E11.9 Type 2 diabetes mellitus without complications; Z79.4 Long term (current) use of insulin
CPT/HCPCS: 80048; 80053; 83036; 85025; 85610; 86850; 86900; 86901; 86920; 88104; 88304; 88305; 88307; 88331; 94640; 94664; C9113; J0690; J1100; J1170; J1644; J2175; J2250; J2274; J2405; J2710; J3010; J3480; J7120

== ENCOUNTER 2017-01-13 10:46 | Inpatient (IN) | payer OTHER ==
[~2017-01-13] VITALS: Ht 162.6 cm; Wt 71.7 kg
[2017-01-13] VITALS (23 sets, daily range): BP systolic 105–154; BP diastolic 54–78; PULSE 78–92; RESP 16–18; Ht 162.6 cm; Wt 71.7 kg
[~2017-01-13 10:46] MED LIST changes: +ACETAMINOPHEN 1000 MG/100 ML IVPB ONE; -BISA-57 PO; +DEXTROSE 50% 50 ML SYRINGE IV PRN; +DIPHENHYDRAMINE 50 MG INJ IV PRN; -DOCU-144 PO; +EPHEDrine SULFATE 50 MG/5 ML SYG IV PRN; +FENTAnyl 50 MCG/ML VIAL IV PRN; +FENTAnyl 50 MCG/ML VIAL ONE; -FURO-110 PO; +GLUCAGON 1 MG INJ IM PRN; +GLUCOSE GEL 15 GRAM TUBE BUCCAL PRN; +GLUCOSE GEL 15 GRAM TUBE PO PRN; -HYDR-902 PO; +HYDROmorphONE (0.2 MG/ML) 10ML SYG IV PRN; +INSULIN ASPART [NOVOLOG] 3 ML PEN SC ONE; +LABETALOL HCL 20MG INJ IV PRN; +LIDOCAINE 2% (SDV) 5 ML INJ ONE; +MEPERIDINE 25 MG INJ IV PRN; +MIDAZOLAM 1 MG/ML 2 ML INJ ONE; +ONDANSETRON 4 MG INJ IV PRN; +PROCHLORPERAZINE 10 MG INJ IV PRN; +PROPOFOL 20 ML ONE; +SUCCINYLCHOLINE CHLORIDE 100 MG/5 ML SYG IV ONE; -[UNRECOGNIZED DRUG - CODE] IV; +hydrALAzine 20 MG INJ IV PRN
[2017-01-13] MEDS ORDERED: ATOR20TA38 PO (11:29)
[2017-01-13] MEDS: D5-NS + KCL 20 MEQ 1,000 ML IV SCH (11:30)
[2017-01-13] MEDS ORDERED: CEFAZOLIN 2 GM/50 ML (PMX) 50 ML IVPB SCH (11:30)
[2017-01-13] MEDS ORDERED: Metronidazole 500 MG in NS 100 ML IVPB SCH (11:30)
--- NOTE | 2017-01-13 12:04 | HPN ---
Date/Time of Note Date/Time of Note DATE: 01/13/17 TIME: 12:04 Interval H&P Admission Note Pt. seen H&P reviewed: No system changes JEFF PALOMINO MD Jan 13, 2017 12:04
[2017-01-13] MEDS ORDERED: metroNIDAZOLE 500 MG/NS (PMX) 100 ML IVPB ONE (15:01)
[2017-01-13] MEDS ORDERED: THROMBIN 5000 UNIT VIAL ONE ×2 (15:04→19:29)
[2017-01-13] MEDS ORDERED: METHYLENE BLUE 1% 10 ML INJ ONE (15:04)
[2017-01-13] MEDS ORDERED: CEFAZOLIN 1 GM INJ ONE (15:59)
[2017-01-13] MEDS ORDERED: HYDROmorphONE 2 MG/ML SYG ONE (15:59)
[2017-01-13] MEDS ORDERED: ROCURONIUM 50 MG INJ ONE ×2 (15:59→18:04)
[2017-01-13] MEDS ORDERED: KETAMINE 500 MG INJ ONE (16:18)
[2017-01-13] MEDS ORDERED: ONDANSETRON 4 MG INJ ONE ×2 (16:30→19:44)
[2017-01-13] MEDS ORDERED: SCOPOLAMINE 1.5 MG PATCH ONE (16:31)
[2017-01-13] MEDS ORDERED: ROPIVACAINE 0.2% 20 ML VIAL ONE (19:12)
[2017-01-13] MEDS ORDERED: GELATIN SIZE 100 SPONGE ONE (19:29)
[2017-01-13] MEDS ORDERED: DIPHENHYDRAMINE 50 MG INJ IV PRN ×2 (19:30→20:30)
[2017-01-13] MEDS ORDERED: CEFAZOLIN 1 GM/50 ML (PMX) 50 ML IVPB SCH (19:30)
[2017-01-13] MEDS ORDERED: metroNIDAZOLE 500 MG/NS (PMX) 100 ML IVPB SCH (19:30)
[2017-01-13] MEDS ORDERED: SUGAMMADEX SODIUM 200 MG/2 ML VIAL IV ONE (19:42)
--- NOTE | 2017-01-13 19:56 | OPR ---
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
[2017-01-13] MEDS ORDERED: PROCHLORPERAZINE 10 MG INJ IV PRN (20:30)
[2017-01-13] MEDS ORDERED: EPHEDrine SULFATE 50 MG/5 ML SYG IV PRN (20:30)
[2017-01-13] MEDS ORDERED: hydrALAzine 20 MG INJ IV PRN (20:30)
[2017-01-13] MEDS ORDERED: FENTAnyl 50 MCG/ML VIAL IV PRN (20:30)
[2017-01-13] MEDS ORDERED: LABETALOL HCL 20MG INJ IV PRN (20:30)
[2017-01-13] MEDS ORDERED: ONDANSETRON 4 MG INJ IV PRN (20:30)
[2017-01-13] MEDS ORDERED: HYDROmorphONE (0.2 MG/ML) 10ML SYG IV PRN (20:30)
[2017-01-13] MEDS ORDERED: MEPERIDINE 25 MG INJ IV PRN (20:30)
[2017-01-13] MEDS ORDERED: METOCLOPRAMIDE 10 MG INJ IV PRN (20:30)
[2017-01-13 20:33] LABS: HEMATOCRIT 35.9 % (37.0-47.0); HEMOGLOBIN 12.2 g/dl (12.0-16.0); MEAN CORPUSCULAR HEMOGLOBIN 28.2 pg (29.0-33.0); MEAN CORPUSCULAR VOLUME 83.1 fl (82.0-101.0); MEAN PLATELET VOLUME 9.4 fl (7.4-10.4); PLATELET COUNT 264 10^3/UL (140-415); RED BLOOD COUNT 4.32 10^6/ul (4.20-5.40); RED CELL DISTRIBUTION WIDTH 13.2 % (11.5-14.5); WHITE BLOOD COUNT 9.6 10^3/ul (4.8-10.8)
[2017-01-13] MEDS ORDERED: HYDROmorphONE (0.2 MG/ML) 10ML SYG IV ONE (20:44)
[2017-01-13] MEDS ORDERED: METOCLOPRAMIDE 10 MG INJ ONE (20:44)
[2017-01-13 20:47] LABS: POSITIVE DIFF @See below
[2017-01-13] MEDS: HYDROmorphONE (0.2 MG/ML) 10ML SYG IV PRN ×3 (20:50→21:22)
[2017-01-13] MEDS: FAMOTIDINE 20 MG INJ IV SCH (21:00)
[2017-01-13 21:01] LABS: CALCIUM 8.5 mg/dl (8.4-10.2); CREATININE 0.6 mg/dl (0.44-1.00); POTASSIUM 3.9 mmol/L (3.5-5.1)
[2017-01-13 21:14] LABS: BASOPHILS % 0.3 % (0.0-2.0); LYMPHOCYTES # 1.3 10^3/ul (0.8-2.9); MONOCYTE # 0.6 10^3/ul (0.3-0.9)
[2017-01-13 21:19] LABS: METAMYELOCYTES %M 1 % (0-0); MICROCYTOSIS 1+ (0-0); MONOCYTES % (M) 4 % (0-11); POLYCHROMASIA 1+ (0-0)
--- NOTE | 2017-01-13 21:50 | SIPON ---
Date/Time of Note Date/Time of Note DATE: 01/13/17 TIME: 21:43 Operative Report Preoperative Diagnosis recurrent/persistent ovarian cancer Postoperative Diagnosis same with uretera stricture bilaterally Operation/Procedure Performed secondary CRS, Bilateral ureteral dissection, right ureteral otomy repair and stent placement, pelvic and aortic LND, appendectomy, cystoscopy Surgeon see signature line assistant distribution manager Dr. Michelle Anesthesia: general Estimated blood loss: 150 - 200 ml's Transfusion Required none Specimen multiple Grafts/Implants none Complications none JEFF PALOMINO MD Jan 13, 2017 21:50
--- NOTE | 2017-01-13 21:56 | RADRPT ---
PROCEDURE: XR Chest. CLINICAL INDICATION: Shortness of breath. TECHNIQUE: AP Portable chest. COMPARISON: 02/24/2016 FINDINGS: There is mild cardiomegaly. Lung volumes are diminished, accentuating the pulmonary markings. No de finite focal infiltrates are seen. There is likely some mild atelectasis at the left lung base. The osseous structures are unremarkable. A right chest medication port and catheter are seen with tip in the right atrium. A left internal ju gular central venous catheter is seen with tip in the right atrium. IMPRESSION: A lung volumes with likely mild atelectasis at the left lung base. RPTAT: HIKT .Munir Garibay MD, MD Date Time Electronically viewed and signed by .Munir Garibay MD, on 01/13/2017 21:56 .T/
--- NOTE | 2017-01-13 22:43 | RADRPT ---
PROCEDURE: XR Abdomen. CLINICAL INDICATION: 61 years of age, female. NG placement. TECHNIQUE: Supine AP view of the abdomen. COMPARISON: None available. FINDINGS: There is an enteric tube with the tip over the gastric fundus and side port at the gastric cardia. Bowel gas pattern is nonobstructive. There is an internalized right ureteral stent that appears in good position. There is a pelvic drain . Surgical clips right upper quadrant from cholecystectomy. There are right paramidline skin michael . Nonspecific opacity at the lung bases is incompletely evaluated. No acute bony abnormality. IMPRESSION: Enteric tube with tip over gastric fundus as described. Postsurgical changes with right ureteral stent and pelvic drain. RPTAT: HCTS Physician Sonya Date Time Electronically viewed and signed by Physician Sonya on 01/13/2017 22:43 CS/
[2017-01-13] MEDS: HYDROmorphONE 1 MG/ML SYG IV PRN (23:50)
[2017-01-14] MEDS: POTASSIUM CHLORIDE 20 MEQ in LACTATED RINGER'S 1,000 ML IV SCH ×5 (00:01→19:17)
[2017-01-14] MEDS: metroNIDAZOLE 500 MG/NS (PMX) 100 ML IVPB SCH ×4 (00:11→23:25)
[2017-01-14] MEDS: HYDROmorphONE 1 MG/ML SYG IV PRN ×5 (01:55→20:48)
[2017-01-14] MEDS: CEFAZOLIN 1 GM/50 ML (PMX) 50 ML IVPB SCH ×3 (03:20→19:17)
[2017-01-14 05:18] LABS: BASOPHILS % 0.1 % (0.0-2.0); HEMATOCRIT 36.1 % (37.0-47.0); HEMOGLOBIN 12.2 g/dl (12.0-16.0); LYMPHOCYTES # 0.7 10^3/ul (0.8-2.9); LYMPHOCYTES % 7.1 % (15.0-51.0); MEAN CORPUSCULAR HEMOGLOBIN 28.2 pg (29.0-33.0); MEAN CORPUSCULAR HGB CONC 33.8 g/dl (32.0-37.0); MEAN CORPUSCULAR VOLUME 83.6 fl (82.0-101.0); MEAN PLATELET VOLUME 9.7 fl (7.4-10.4); MONOCYTE # 0.7 10^3/ul (0.3-0.9); NEUTROPHIL # 8.2 10^3/ul (1.6-7.5); NEUTROPHILS % 85.5 % (39.0-77.0); PLATELET COUNT 272 10^3/UL (140-415); RED BLOOD COUNT 4.32 10^6/ul (4.20-5.40); RED CELL DISTRIBUTION WIDTH 13.2 % (11.5-14.5); WHITE BLOOD COUNT 9.6 10^3/ul (4.8-10.8)
[2017-01-14 05:28] LABS: POSITIVE DIFF @See below
[2017-01-14 05:32] LABS: INR 1.21; PROTIME 15.4 Sec (12.2-14.2); PT RATIO 1.2
[2017-01-14 05:36] VITALS: BP 133/60; RESP 20
[2017-01-14 05:41] LABS: ALBUMIN 3.4 g/dl (3.3-4.9); ALBUMIN/GLOBULIN RATIO 1.03; BILIRUBIN,INDIRECT 0.3 mg/dl (0-1.1); BILIRUBIN,TOTAL 0.3 mg/dl (0.2-1.3); CALCIUM 8.7 mg/dl (8.4-10.2); CREATININE 0.7 mg/dl (0.44-1.00); POTASSIUM 4.6 mmol/L (3.5-5.1); TOTAL PROTEIN 6.7 g/dl (6.1-8.1)
[2017-01-14] MEDS: D5-NS + KCL 20 MEQ 1,000 ML IV SCH (07:30)
[2017-01-14 07:48] VITALS: BP 126/60; RESP 20
[2017-01-14] MEDS: FAMOTIDINE 20 MG INJ IV SCH ×2 (08:20→20:48)
--- NOTE | 2017-01-14 08:44 | OPR ---
DATE OF OPERATION: PREOPERATIVE DIAGNOSIS: Injury to the right carotid artery. POSTOPERATIVE DIAGNOSIS: Injury to the right carotid artery. PROCEDURES: 1. Repair of right carotid artery. 2. Repair right internal jugular vein. SURGEON: Guille Pedroza MD. ANESTHESIA: General. ESTIMATED BLOOD LOSS: 60 mL. CONSENT: Risks, benefits, complications, alternative therapies explained to the patient and the [facility] red, consent obtained. DESCRIPTION OF PROCEDURE: The patient was placed in supine position, prepped and draped in usual st erile fashion. This is a patient who had undergone a right internal jugular vein central line place ment. Subsequently was found to have a central line placed in the right internal carotid artery. I was called by the anesthesiologist and the nursing staff to repair the carotid artery. The patient , prepped and draped in usual sterile fashion. I made a 5 cm incision. The right lower neck incision was taken down to the subcutaneous tissue. Subcutaneous platysma was opened and carotid sheath was opened. The line appeared to have gone into the vein and into the artery. The line was removed after obtaining vascular control. The carotid artery injury was repaired using a 6 -0 Prolene gsuxxh-ki-kvikw fashion. The vein was repaired in a similar fashion. The wound was irri gated and closed in 2 layers of 3-0 Vicryl suture for subcutaneous, and 3-0 Vicryl suture for runnin g subcuticular closure after closing the platysma in a similar fashion. The patient tolerated the p rocedure well. Dictated By: GUILLE SRIVASTAVA/RADHA Conf#: [id number] DID#: [id number]
--- NOTE | 2017-01-14 08:54 | CONS ---
DATE OF ADMISSION: 01/13/2017 DATE OF CONSULTATION: HISTORY OF PRESENT ILLNESS: I was called emergently into the room of this patient who is undergoing an abdominal surgery. Patient had a central line placed by the anesthesiologist who helped me and explained to me that the central line had gone into the carotid artery. After discussion with the a nesthesiologist and the surgeon and the nursing staff, we decided to proceed with the repair of the carotid artery and possible jugular vein. Patient quickly examined, prepped and draped in the usual sterile fashion. I assessed the situation . The line was in the right neck. It appeared to be triple lumen catheter. I made a 5 cm incision in the lower aspect of the right neck in horizontal fashion. Incision was taken down to the subcut aneous tissue. Platysma was opened. Using electrocautery, the left line appeared to be traversing t he platysma into the sternocleidomastoid muscle. Carotid sheath was opened. The line appeared to have gone into jugular vein and into the carotid ar mario. Quickly vascular exposure was obtained followed by vascular control. The line was then remov ed. The carotid artery injury was using a single 6-0 Prolene in a rvgkoo-pa-wdumd fashion. B oth sides of the jugular vein were also repaired in a similar fashion. No evidence of any further b leeding was noted. The wound was irrigated using antibiotic solution and closed in multiple layers. The platysma was closed using 3-0 Vicryl suture in a running fashion. The wound was irrigated and closed using 3-0 Vicryl suture for subQ, 3-0 Vicryl suture for running subcuticular skin closure wi th Steri-Strips. PREOPERATIVE DIAGNOSIS: Injury to the right carotid artery. POSTOPERATIVE DIAGNOSIS: Injury to the right carotid artery. PROCEDURE: Repair of right carotid artery and right internal jugular vein. SURGEON: Dr. Pedroza. ANESTHESIA: General. ESTIMATED BLOOD LOSS: 50 mL. Dictated By: OLEKSANDR SRIVASTAVA/RADHA Conf#: [id number] DID#: [id number]
[2017-01-14] MEDS ORDERED: INSULIN ASPART [NOVOLOG] 3 ML PEN SC SCH (11:40)
[2017-01-14] MEDS ORDERED: ACCU-CHEK XX SCH (12:00)
[2017-01-14] MEDS: INSULIN ASPART [NOVOLOG] 3 ML PEN SC SCH ×2 (12:30→18:00)
[2017-01-14 14:00] VITALS: BP 128/55; RESP 20
--- NOTE | 2017-01-14 14:39 | CONS ---
Date/Time of Note Date/Time of Note DATE: 01/14/17 TIME: 14:32 Assessment/Plan Assessment/Plan Additional Assessment/Plan Pt is recovering very well from the surgery yesterday. Path is pending but recurrent ovarian cancer is expected. She will need further chemotherapy but I would like her to recover from surgery first. Note that her insurance carrier would not cover adjuvant chemotherapy but covering her for relapsed malignancy should not be problematic. Consultation Date/Type/Reason Admit Date/Time Jan 13, 2017 at 10:46 Date of Consultation: Jan 14, 2017 Type of Consultation: oncology Reason for Consultation ovarian cancer Referring Provider: JEFF PALOMINO MD Hx of Present Illness 61 yo woman known to me. She has known ovarian cancer and yesterday had another surgery. She had a second look earlier this year and was going to get adjuvant chemotherapy but she progressed quickly and it was not started. Pathology from yesterday is not yet ready. Surgery went well except that a central line was not placed well and a repair was done. Today she looks good and is awake and alert. She c/o postoperative pain but it is controlled with current analgesics. Respiratory: sputum Social History Smoking Status: Never smoker Exam/Review of Systems Vital Signs Vitals Vital Signs Date Time Temp Pulse Resp B/P Pulse Ox O2 Delivery O2 Flow Rate FiO2 01/14/17 09:00 Nasal Cannula 2.0 01/14/17 07:48 97.9 101 20 126/60 98 Intake and Output 01/13/17 01/13/17 01/14/17 15:00 23:00 07:00 Intake Total 2400 ml 675 ml Output Total 1470 ml 520 ml Balance 930 ml 155 ml Exam Constitutional: alert, oriented Head: normocephalic Eyes: nl conjunctiva ENMT: nl external ears & nose Neck: supple Respiratory: clear to auscultation Cardiovascular: regular rate and rhythm Gastrointestinal: other (s/p laparotomy) Neurological: nl mental status, nl speech Skin: nl turgor Lymph: nl lymph nodes Results Result Diagram: 01/14/17 0451 01/14/17 0451 Results 24 hrs Laboratory Tests Test 01/13/17 20:27 01/13/17 20:47 01/14/17 04:51 01/14/17 05:28 White Blood Count 9.6 # 9.6 Red Blood Count 4.32 4.32 Hemoglobin 12.2 12.2 Hematocrit 35.9 L 36.1 L Mean Corpuscular Volume 83.1 83.6 Mean Corpuscular Hemoglobin 28.2 L 28.2 L Mean Corpuscular Hemoglobin Concent 34.0 33.8 Red Cell Distribution Width 13.2 13.2 Platelet Count 264 272 Mean Platelet Volume 9.4 9.7 Neutrophils % 85.5 H Segmented Neutrophils % (Manual) 60 Band Neutrophils % (Manual) 13 H Lymphocytes % 14.0 L 7.1 L Lymphocytes % (Manual) 22 Monocytes % 6.0 7.0 Monocytes % (Manual) 4 Eosinophils % 0.0 Basophils % 0.3 0.1 Metamyelocytes % (manual) 1 H Nucleated Red Blood Cells % 0.0 0.0 Neutrophils # 8.2 H Neutrophils # (Manual) 5.9 Band Neutrophils # 1.2 H Absolute Lymphocytes (Manual) 2.1 Lymphocytes # 1.3 0.7 L Monocytes # 0.6 0.7 Absolute Monocytes (Manual) 0.3 Eosinophils # 0.0 Basophils # 0.0 0.0 Metamyelocytes # 0.0 Nucleated Red Blood Cells # 0.0 0.0 Platelet Morphology Comment @See below Polychromasia 1+ Microcytosis 1+ Sodium Level 138 140 Potassium Level 3.9 4.6 Chloride Level 108 108 Carbon Dioxide Level 22 24 Anion Gap 12 13 Blood Urea Nitrogen 13 13 Creatinine 0.60 0.70 Glucose Level 176 204 Calcium Level 8.5 8.7 Bedside Glucose 152 236 H Prothrombin Time 15.4 H Prothrombin Time Ratio 1.2 INR International Normalized Ratio 1.21 Total Bilirubin 0.3 Direct Bilirubin 0.00 Indirect Bilirubin 0.3 Aspartate Amino Transf (AST/SGOT) 168 H Alanine Aminotransferase (ALT/SGPT) 185 H Alkaline Phosphatase 118 Total Protein 6.7 Albumin 3.4 Globulin 3.30 H Albumin/Globulin Ratio 1.03 Test 01/14/17 10:19 01/14/17 12:05 Bedside Glucose 174 197 Medications Medications Current Medications Miscellaneous Information 1 ea NOTE XX ; Start 01/13/17 at 08:30 Glucose (Glutose) 15 gm Q15M PRN PO DECREASED GLUCOSE; Start 01/13/17 at 08:30 Glucose (Glutose) 22.5 gm Q15M PRN PO DECREASED GLUCOSE; Start 01/13/17 at 08: 30 Dextrose (D50w Syringe) 25 ml Q15M PRN IV DECREASED GLUCOSE; Start 01/13/17 at 08:30 Dextrose (D50w Syringe) 50 ml Q15M PRN IV DECREASED GLUCOSE; Start 01/13/17 at 08:30 Glucagon (Glucagen) 1 mg Q15M PRN IM DECREASED GLUCOSE; Start 01/13/17 at 08:30 Glucose 15 gm 15 gm Q15M PRN BUCCAL DECREASED GLUCOSE; Start 01/13/17 at 08:30 Potassium Chloride/Dextrose/ Sod Cl (D5-NS + KCl 20 Meq) 1,000 ml @ 100 mls/hr Q10H IV ; Start 01/13/17 at 11:30; Status Future Hold Hydromorphone HCl (Dilaudid) 1 mg Q2H PRN IV PAIN LEVEL 6-10 Last administered on 01/14/17 12:24; Admin Dose 1 MG; Start 01/13/17 at 19:30 Diphenhydramine HCl (Benadryl) 25 mg Q6H PRN IV ITCHING; Start 01/13/17 at 19: 30 Ondansetron HCl (Zofran Inj) 4 mg Q6H PRN IV NAUSEA AND/OR VOMITING; Start 01/13/17 at 19:30 Famotidine 20 mg 20 mg Q12 IV Last administered on 01/14/17 08:20; Admin Dose 20 MG; Start 01/13/17 at 21:00 Potassium Chloride 20 meq/ Lactated Ringer's 1,010 ml @ 150 mls/hr Q6H44M IV Last administered on 01/14/17 10:16; Admin Dose 150 MLS/HR; Start 01/13/17 at 19:25 Cefazolin Sodium 50 ml @ 100 mls/hr Q8H IVPB Last administered on 01/14/17 11 :34; Admin Dose 100 MLS/HR; Start 01/14/17 at 03:00 Metronidazole (Flagyl 500 Mg (Pmx)) 100 ml @ 100 mls/hr Q8H IVPB Last administered on 01/14/17 08:18; Admin Dose 100 MLS/HR; Start 01/13/17 at 23:47 Insulin Aspart (Novolog Insulin Pen) NOVOLOG *MILD* ALGORITHM Q6 SC Last administered on 01/14/17 12:30; Admin Dose 2 UNIT; Start 01/14/17 at 12:00 JANUARY SHARMA MD Jan 14, 2017 14:39
--- NOTE | 2017-01-14 17:11 | OPPN ---
Date/Time of Note Date/Time of Note DATE: 01/14/17 TIME: 17:04 Anesthesia Follow up Anesthesia Follow up Last documented vital signs Vital Signs Date Time Temp Pulse Resp B/P Pulse Ox O2 Delivery O2 Flow Rate FiO2 01/14/17 14:00 99.7 98 20 128/55 97 01/14/17 09:00 Nasal Cannula 2.0 Respiratory function: WNL Cardiovascular function: WNL Comments 61 yo F with recurrent ovarian CA POD 1 s/p secondary cytoreduction, bilateral ureteral dissection, R ureteral ostomy repair, cystoscopy, R ureteral stent placement, pelvic and aortic LN dissection, appendectomy, POD 1 s/p R carotid and R IJ repair. Pt was seen and evaluated at bedside. Pt is VSS, A&Ox3, MALDONADO, pain controlled, NGT in place, L TLC central line in good placement with tip in RA on CXR. Discussed again with patient regarding R carotid injury and repair with family at bedside. Pt understands and all questions and concerns addressed. NICKOLAS VICENTE MD Jan 14, 2017 17:11
--- NOTE | 2017-01-14 17:27 | HP ---
DATE OF ADMISSION: 01/13/2017 CHIEF COMPLAINT AND HISTORY OF PRESENT ILLNESS: The patient is a 61-year-old female with history of ovarian cancer status post surgery followed by carboplatin and Taxol treatment and recently back in October underwent reassessment laparotomy, right ear dissection and portal node dissection and ventral hernia repair. The patient was brought into the hospital again yesterday for recurrent and persis tent ovarian cancer. The patient underwent secondary right ureteral repair and stent placement, pel dasia and aortic lymph node dissection, appendectomy and cystoscopy. The patient also developed injur y to the right carotid artery while undergoing a right IJ central line placement. Dr. Pedroza was called from vascular surgery's standpoint and repair of right carotid artery and also right interna l jugular vein was also repaired. Patient currently has stable vital signs and was transferred to [facility] floor for further care. The patient does have postoperative pain for which she is getting IV Dil audid every 2 hours as needed. Patient did not have any vomiting. No reported chest pain or shortn ess of breath. No reported leg edema. No reported resting leg pain. No reported weakness in any e xtremity. No fever or chills since admission. Other than postoperative pain, the rest of review of systems were unremarkable. The patient has history of borderline diabetes and her blood sugar this morning was 236. The patient has been started on sliding scale. Patient's hemoglobin A1c back in October was 7. The patient does not take any medications for diabetes. The patient is currently n.p.o . PAST MEDICAL HISTORY: As stated above. In addition, the patient has history of hypertension and dy slipidemia. FAMILY HISTORY: Noncontributory. ALLERGIES: NONE. SOCIAL HISTORY: No smoking, no alcohol. PHYSICAL EXAMINATION: GENERAL: The patient is conscious, awake, alert. VITAL SIGNS: This morning, temperature 97.9, pulse 101, respirations 20, blood pressure 136/60, O2 saturation 98% on 2 L. HEENT: No eye discharge or redness. Oropharynx clear. NECK: Dressing intact on the right side where the patient underwent right carotid artery and right internal jugular vein repair. CHEST: Fairly clear. CARDIOVASCULAR: S1, S2 normal. No murmur. ABDOMEN: The patient is status post surgery. EXTREMITIES: No leg edema. Pedal pulses palpable. NEUROLOGIC: The patient is awake, alert with no gross focal deficit. LABORATORY DATA: Sodium 140, potassium 4.6, BUN 13, creatinine 0.3. WBC 9.6, hemoglobin 12.2, plat elets 270. IMPRESSION: 1. Recurrent/persistent cancer status post secondary cytoreduction surgery. 2. Right internal carotid artery and right internal jugular vein injury during central line placeme nt, status post repair by Dr. Pedroza. 3. Diabetes. The patient is currently n.p.o. and is getting . We will put on sliding scale i nsulin. We will obtain hemoglobin A1c. The patient will be continued on IV cefazolin and Flagyl as per protocol. Patient will have sequential compression devices for deep venous thrombosis. 4. Plan discussed with the patient's family. Further recommendations will depend on the patient's hospital course. Dictated By: COBY MELGAR/RADHA Conf#: [id number] DID#: [id number]
--- NOTE | 2017-01-14 18:12 | PN ---
Date/Time of Note Date/Time of Note DATE: 01/14/17 TIME: 18:09 Assessment/Plan VTE Prophylaxis VTE Prophylaxis Intervention: SCD's Lines/Catheters IV Catheter Type (from Nrs): Saline Lock Urinary Cath still in place: Yes Reason Cath still needed: other (indicate) Assessment/Plan Chief Complaint/Hosp Course recurrent ovarian cancer Problems: Assessment/Plan A- doing well P- discussed surgery in detail. Will probably d/c NGT tomorrow and adv diet slowly Subjective 24 Hr Interval Summary Free Text/Dictation Feels better but no flatus and not OOB. Exam/Review of Systems Vital Signs Vitals Vital Signs Date Time Temp Pulse Resp B/P Pulse Ox O2 Delivery O2 Flow Rate FiO2 01/14/17 14:00 99.7 98 20 128/55 97 01/14/17 09:00 Nasal Cannula 2.0 Intake and Output 01/13/17 01/13/17 01/14/17 15:00 23:00 07:00 Intake Total 2400 ml 675 ml Output Total 1470 ml 520 ml Balance 930 ml 155 ml Exam Resp- clear CVS- NSR Abd- soft and clean. Mildly tender Ext NT Results Result Diagram: 01/14/17 0451 01/14/17 0451 Results 24 hrs Laboratory Tests Test 01/13/17 20:27 01/13/17 20:47 01/14/17 04:51 01/14/17 05:28 White Blood Count 9.6 # 9.6 Red Blood Count 4.32 4.32 Hemoglobin 12.2 12.2 Hematocrit 35.9 L 36.1 L Mean Corpuscular Volume 83.1 83.6 Mean Corpuscular Hemoglobin 28.2 L 28.2 L Mean Corpuscular Hemoglobin Concent 34.0 33.8 Red Cell Distribution Width 13.2 13.2 Platelet Count 264 272 Mean Platelet Volume 9.4 9.7 Neutrophils % 85.5 H Segmented Neutrophils % (Manual) 60 Band Neutrophils % (Manual) 13 H Lymphocytes % 14.0 L 7.1 L Lymphocytes % (Manual) 22 Monocytes % 6.0 7.0 Monocytes % (Manual) 4 Eosinophils % 0.0 Basophils % 0.3 0.1 Metamyelocytes % (manual) 1 H Nucleated Red Blood Cells % 0.0 0.0 Neutrophils # 8.2 H Neutrophils # (Manual) 5.9 Band Neutrophils # 1.2 H Absolute Lymphocytes (Manual) 2.1 Lymphocytes # 1.3 0.7 L Monocytes # 0.6 0.7 Absolute Monocytes (Manual) 0.3 Eosinophils # 0.0 Basophils # 0.0 0.0 Metamyelocytes # 0.0 Nucleated Red Blood Cells # 0.0 0.0 Platelet Morphology Comment @See below Polychromasia 1+ Microcytosis 1+ Sodium Level 138 140 Potassium Level 3.9 4.6 Chloride Level 108 108 Carbon Dioxide Level 22 24 Anion Gap 12 13 Blood Urea Nitrogen 13 13 Creatinine 0.60 0.70 Glucose Level 176 204 Calcium Level 8.5 8.7 Bedside Glucose 152 236 H Prothrombin Time 15.4 H Prothrombin Time Ratio 1.2 INR International Normalized Ratio 1.21 Total Bilirubin 0.3 Direct Bilirubin 0.00 Indirect Bilirubin 0.3 Aspartate Amino Transf (AST/SGOT) 168 H Alanine Aminotransferase (ALT/SGPT) 185 H Alkaline Phosphatase 118 Total Protein 6.7 Albumin 3.4 Globulin 3.30 H Albumin/Globulin Ratio 1.03 Test 01/14/17 10:19 01/14/17 12:05 01/14/17 17:54 Bedside Glucose 174 197 144 Medications Medications Current Medications Miscellaneous Information 1 ea NOTE XX ; Start 01/13/17 at 08:30 Glucose (Glutose) 15 gm Q15M PRN PO DECREASED GLUCOSE; Start 01/13/17 at 08:30 Glucose (Glutose) 22.5 gm Q15M PRN PO DECREASED GLUCOSE; Start 01/13/17 at 08: 30 Dextrose (D50w Syringe) 25 ml Q15M PRN IV DECREASED GLUCOSE; Start 01/13/17 at 08:30 Dextrose (D50w Syringe) 50 ml Q15M PRN IV DECREASED GLUCOSE; Start 01/13/17 at 08:30 Glucagon (Glucagen) 1 mg Q15M PRN IM DECREASED GLUCOSE; Start 01/13/17 at 08:30 Glucose 15 gm 15 gm Q15M PRN BUCCAL DECREASED GLUCOSE; Start 01/13/17 at 08:30 Potassium Chloride/Dextrose/ Sod Cl (D5-NS + KCl 20 Meq) 1,000 ml @ 100 mls/hr Q10H IV ; Start 01/13/17 at 11:30; Status Future Hold Hydromorphone HCl (Dilaudid) 1 mg Q2H PRN IV PAIN LEVEL 6-10 Last administered on 01/14/17 17:09; Admin Dose 1 MG; Start 01/13/17 at 19:30 Diphenhydramine HCl (Benadryl) 25 mg Q6H PRN IV ITCHING; Start 01/13/17 at 19: 30 Ondansetron HCl (Zofran Inj) 4 mg Q6H PRN IV NAUSEA AND/OR VOMITING; Start 01/13/17 at 19:30 Famotidine 20 mg 20 mg Q12 IV Last administered on 01/14/17 08:20; Admin Dose 20 MG; Start 01/13/17 at 21:00 Potassium Chloride 20 meq/ Lactated Ringer's 1,010 ml @ 150 mls/hr Q6H44M IV Last administered on 01/14/17 10:16; Admin Dose 150 MLS/HR; Start 01/13/17 at 19:25 Cefazolin Sodium 50 ml @ 100 mls/hr Q8H IVPB Last administered on 01/14/17 11 :34; Admin Dose 100 MLS/HR; Start 01/14/17 at 03:00 Metronidazole (Flagyl 500 Mg (Pmx)) 100 ml @ 100 mls/hr Q8H IVPB Last administered on 01/14/17 16:20; Admin Dose 100 MLS/HR; Start 01/13/17 at 23:47 Insulin Aspart (Novolog Insulin Pen) NOVOLOG *MILD* ALGORITHM Q6 SC Last administered on 01/14/17 18:00; Admin Dose 1 UNIT; Start 01/14/17 at 12:00 JEFF PALOMINO MD Jan 14, 2017 18:12
[2017-01-14 20:18] VITALS: BP 128/55; RESP 18
[2017-01-15] MEDS: HYDROmorphONE 1 MG/ML SYG IV PRN ×5 (00:36→20:47)
[2017-01-15] MEDS ORDERED: ACCU-CHEK XX SCH (02:00)
[2017-01-15 02:38] VITALS: BP 108/50; RESP 20
[2017-01-15] MEDS: CEFAZOLIN 1 GM/50 ML (PMX) 50 ML IVPB SCH ×3 (03:55→18:29)
[2017-01-15] MEDS: POTASSIUM CHLORIDE 20 MEQ in LACTATED RINGER'S 1,000 ML IV SCH ×4 (04:40→23:17)
[2017-01-15 05:57] LABS: BASOPHILS % 0.4 % (0.0-2.0); EOSINOPHILS # 0.1 10^3/ul (0.0-0.5); EOSINOPHILS % 1.3 % (0.0-7.0); HEMATOCRIT 27.4 % (37.0-47.0); HEMOGLOBIN 9.1 g/dl (12.0-16.0); LYMPHOCYTES # 1.2 10^3/ul (0.8-2.9); LYMPHOCYTES % 12.1 % (15.0-51.0); MEAN CORPUSCULAR HEMOGLOBIN 28.2 pg (29.0-33.0); MEAN CORPUSCULAR HGB CONC 33.2 g/dl (32.0-37.0); MEAN CORPUSCULAR VOLUME 84.8 fl (82.0-101.0); MEAN PLATELET VOLUME 10.2 fl (7.4-10.4); MONOCYTE # 0.8 10^3/ul (0.3-0.9); MONOCYTES % 7.9 % (0.0-11.0); NEUTROPHIL # 7.7 10^3/ul (1.6-7.5); PLATELET COUNT 200 10^3/UL (140-415); RED BLOOD COUNT 3.23 10^6/ul (4.20-5.40); RED CELL DISTRIBUTION WIDTH 13.8 % (11.5-14.5); WHITE BLOOD COUNT 9.9 10^3/ul (4.8-10.8)
[2017-01-15] MEDS: INSULIN ASPART [NOVOLOG] 3 ML PEN SC SCH ×2 (06:13)
[2017-01-15 06:54] LABS: CALCIUM 8.4 mg/dl (8.4-10.2); CREATININE 0.61 mg/dl (0.44-1.00); POTASSIUM 3.9 mmol/L (3.5-5.1)
[2017-01-15 07:31] VITALS: BP 123/58; RESP 18
[2017-01-15] MEDS: ACCU-CHEK XX SCH ×4 (09:00→21:00)
[2017-01-15] MEDS ORDERED: INSULIN ASPART [NOVOLOG] 3 ML PEN SC SCH ×2 (09:00)
[2017-01-15] MEDS: Insulin NOVOLOG SS MILD Algorithm (NPO/TPN/ENTERAL FEEDS) SC SCH ×4 (09:00→20:42)
[2017-01-15] MEDS: metroNIDAZOLE 500 MG/NS (PMX) 100 ML IVPB SCH ×3 (09:24→23:45)
[2017-01-15] MEDS: FAMOTIDINE 20 MG INJ IV SCH ×2 (09:26→20:40)
--- NOTE | 2017-01-15 09:42 | PN ---
Date/Time of Note Date/Time of Note DATE: 01/15/17 TIME: 09:37 Assessment/Plan VTE Prophylaxis VTE Prophylaxis Intervention: ambulation Lines/Catheters [facility] Saline Lock Urinary Cath still in place: Yes Reason Cath still needed: other (indicate) (recent surgery) Assessment/Plan Chief Complaint/Hosp Course 61 yo woman known to me. She has known ovarian cancer and yesterday had another surgery. She had a second look earlier this year and was going to get adjuvant chemotherapy but she progressed quickly and it was not started. Pathology from surgery is not yet ready. Surgery went well except that a central line was not placed well and a repair of the carotid vessel was done. Today she looks good and is awake and alert. She c/o postoperative pain but it is controlled with current analgesics. She spoke to Dr. Hayes yesterday but did not fully understand what he said. I suggested she have family there also so that they can help her in this regard. Final path and op reports are pending but I presume ovarian cancer will be found and that chemotherapy can resume once she can eat and walk. Problems: Subjective 24 Hr Interval Summary Free Text/Dictation Pt has usual postop pain but it is not severe and analgesics help. She has not passed gas per rectum yet. Exam/Review of Systems Vital Signs Vitals Vital Signs Date Time Temp Pulse Resp B/P Pulse Ox O2 Delivery O2 Flow Rate FiO2 01/15/17 07:31 97.9 99 18 123/58 96 01/14/17 19:40 Nasal Cannula 2.0 Intake and Output 01/14/17 01/14/17 01/15/17 15:00 23:00 07:00 Intake Total 685 ml 950 ml 1160 ml Output Total 960 ml 920 ml Balance 685 ml -10 ml 240 ml Exam Constitutional: alert, oriented, well developed Head: normocephalic Eyes: nl conjunctiva, other (pallor) ENMT: nl external ears & nose Neck: supple Respiratory: clear to auscultation Cardiovascular: regular rate and rhythm Gastrointestinal: other (s/p laparotomy) Lymph: nl lymph nodes Results Result Diagram: 01/15/17 0454 01/15/17 0454 Results 24 hrs Laboratory Tests Test 01/14/17 10:19 01/14/17 12:05 01/14/17 17:54 01/15/17 00:43 Bedside Glucose 174 197 144 133 Test 01/15/17 04:34 01/15/17 04:54 01/15/17 06:05 01/15/17 09:22 Hemoglobin A1c 6.2 H White Blood Count 9.9 Red Blood Count 3.23 #L Hemoglobin 9.1 #L Hematocrit 27.4 #L Mean Corpuscular Volume 84.8 Mean Corpuscular Hemoglobin 28.2 L Mean Corpuscular Hemoglobin Concent 33.2 Red Cell Distribution Width 13.8 Platelet Count 200 # Mean Platelet Volume 10.2 Neutrophils % 78.0 H Lymphocytes % 12.1 L Monocytes % 7.9 Eosinophils % 1.3 Basophils % 0.4 Nucleated Red Blood Cells % 0.0 Neutrophils # 7.7 H Lymphocytes # 1.2 Monocytes # 0.8 Eosinophils # 0.1 Basophils # 0.0 Nucleated Red Blood Cells # 0.0 Sodium Level 136 Potassium Level 3.9 Chloride Level 104 Carbon Dioxide Level 28 Anion Gap 8 Blood Urea Nitrogen 12 Creatinine 0.61 Glucose Level 150 Calcium Level 8.4 Bedside Glucose 166 129 Medications Medications Current Medications Miscellaneous Information 1 ea NOTE XX ; Start 01/13/17 at 08:30 Glucose (Glutose) 15 gm Q15M PRN PO DECREASED GLUCOSE; Start 01/13/17 at 08:30 Glucose (Glutose) 22.5 gm Q15M PRN PO DECREASED GLUCOSE; Start 01/13/17 at 08: 30 Dextrose (D50w Syringe) 25 ml Q15M PRN IV DECREASED GLUCOSE; Start 01/13/17 at 08:30 Dextrose (D50w Syringe) 50 ml Q15M PRN IV DECREASED GLUCOSE; Start 01/13/17 at 08:30 Glucagon (Glucagen) 1 mg Q15M PRN IM DECREASED GLUCOSE; Start 01/13/17 at 08:30 Glucose 15 gm 15 gm Q15M PRN BUCCAL DECREASED GLUCOSE; Start 01/13/17 at 08:30 Potassium Chloride/Dextrose/ Sod Cl (D5-NS + KCl 20 Meq) 1,000 ml @ 100 mls/hr Q10H IV ; Start 01/13/17 at 11:30; Status Future Hold Hydromorphone HCl (Dilaudid) 1 mg Q2H PRN IV PAIN LEVEL 6-10 Last administered on 01/15/17t 04:40; Admin Dose 1 MG; Start 01/13/17 at 19:30 Diphenhydramine HCl (Benadryl) 25 mg Q6H PRN IV ITCHING; Start 01/13/17 at 19: 30 Ondansetron HCl (Zofran Inj) 4 mg Q6H PRN IV NAUSEA AND/OR VOMITING; Start 01/13/17 at 19:30 Famotidine 20 mg 20 mg Q12 IV Last administered on 01/15/17 09:26; Admin Dose 20 MG; Start 01/13/17 at 21:00 Potassium Chloride 20 meq/ Lactated Ringer's 1,010 ml @ 150 mls/hr Q6H44M IV Last administered on 01/15/17 04:40; Admin Dose 150 MLS/HR; Start 01/13/17 at 19:25 Cefazolin Sodium 50 ml @ 100 mls/hr Q8H IVPB Last administered on 01/15/17 03 :55; Admin Dose 100 MLS/HR; Start 01/14/17 at 03:00 Metronidazole (Flagyl 500 Mg (Pmx)) 100 ml @ 100 mls/hr Q8H IVPB Last administered on 01/15/17 09:24; Admin Dose 100 MLS/HR; Start 01/13/17 at 23:47 Diagnostic Test (Pha) (Accu-Chek) 1 ea Q4 XX ; Start 01/15/17 at 09:00 Insulin Aspart (Novolog Insulin Pen) (Adult SC Insulin - Mild Algorithm)... Q4 SC ; Start 01/15/17 at 09:00 JANUARY SHARMA MD Jan 15, 2017 09:42
[2017-01-15] MEDS: LEVALBUTEROL (NEB) 0.63 MG/3 ML AMP HHN PRN ×3 (13:48→22:15)
--- NOTE | 2017-01-15 17:41 | PN ---
Date/Time of Note Date/Time of Note DATE: 01/15/17 TIME: 17:36 Assessment/Plan VTE Prophylaxis VTE Prophylaxis Intervention: SCD's Lines/Catheters IV Catheter Type (from Nrs): PORT A CATH Urinary Cath still in place: Yes Reason Cath still needed: urinary retention Assessment/Plan Chief Complaint/Hosp Course Patient is awake alert, pain is well controlled, but hemoglobin noted however no indication for blood transfusion will continue to monitor. Problems: Assessment/Plan - Recurrent/persistent ovarian cancer, status post secondary cytoreduction surgery. Continue IV fluids. 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 Pedroza. - DM with hemoglobin A1c 6.3. Continue NovoLog per mild algorithm sliding scale. Further recommendations based on clinical course. Plan of care of care discussed with Dr. Phelps Exam/Review of Systems Vital Signs Vitals Vital Signs Date Time Temp Pulse Resp B/P Pulse Ox O2 Delivery O2 Flow Rate FiO2 01/15/17 16:57 2.0 01/15/17 16:55 101 18 93 Nasal Cannula 01/15/17 07:31 97.9 123/58 Intake and Output 01/14/17 01/14/17 01/15/17 15:00 23:00 07:00 Intake Total 685 ml 950 ml 1160 ml Output Total 960 ml 920 ml Balance 685 ml -10 ml 240 ml Exam Constitutional: alert Head: normocephalic ENMT: other (NG tube) Respiratory: normal air movement Cardiovascular: nl pulses Gastrointestinal: non-tender, other (s/p postsurgery), soft Genitourinary - Female: other (Preciado catheter) Extremities: normal pulses Results Result Diagram: 01/15/17 0454 01/15/17 0454 Results 24 hrs Laboratory Tests Test 01/14/17 17:54 01/15/17 00:43 01/15/17 04:34 01/15/17 04:54 Bedside Glucose 144 133 Hemoglobin A1c 6.2 H White Blood Count 9.9 Red Blood Count 3.23 #L Hemoglobin 9.1 #L Hematocrit 27.4 #L Mean Corpuscular Volume 84.8 Mean Corpuscular Hemoglobin 28.2 L Mean Corpuscular Hemoglobin Concent 33.2 Red Cell Distribution Width 13.8 Platelet Count 200 # Mean Platelet Volume 10.2 Neutrophils % 78.0 H Lymphocytes % 12.1 L Monocytes % 7.9 Eosinophils % 1.3 Basophils % 0.4 Nucleated Red Blood Cells % 0.0 Neutrophils # 7.7 H Lymphocytes # 1.2 Monocytes # 0.8 Eosinophils # 0.1 Basophils # 0.0 Nucleated Red Blood Cells # 0.0 Sodium Level 136 Potassium Level 3.9 Chloride Level 104 Carbon Dioxide Level 28 Anion Gap 8 Blood Urea Nitrogen 12 Creatinine 0.61 Glucose Level 150 Calcium Level 8.4 Test 01/15/17 06:05 01/15/17 09:22 01/15/17 13:24 Bedside Glucose 166 129 123 Medications Medications Current Medications Miscellaneous Information 1 ea NOTE XX ; Start 01/13/17 at 08:30 Glucose (Glutose) 15 gm Q15M PRN PO DECREASED GLUCOSE; Start 01/13/17 at 08:30 Glucose (Glutose) 22.5 gm Q15M PRN PO DECREASED GLUCOSE; Start 01/13/17 at 08: 30 Dextrose (D50w Syringe) 25 ml Q15M PRN IV DECREASED GLUCOSE; Start 01/13/17 at 08:30 Dextrose (D50w Syringe) 50 ml Q15M PRN IV DECREASED GLUCOSE; Start 01/13/17 at 08:30 Glucagon (Glucagen) 1 mg Q15M PRN IM DECREASED GLUCOSE; Start 01/13/17 at 08:30 Glucose 15 gm 15 gm Q15M PRN BUCCAL DECREASED GLUCOSE; Start 01/13/17 at 08:30 Potassium Chloride/Dextrose/ Sod Cl (D5-NS + KCl 20 Meq) 1,000 ml @ 100 mls/hr Q10H IV ; Start 01/13/17 at 11:30; Status Future Hold Hydromorphone HCl (Dilaudid) 1 mg Q2H PRN IV PAIN LEVEL 6-10 Last administered on 01/15/17 15:59; Admin Dose 1 MG; Start 01/13/17 at 19:30 Diphenhydramine HCl (Benadryl) 25 mg Q6H PRN IV ITCHING; Start 01/13/17 at 19: 30 Ondansetron HCl (Zofran Inj) 4 mg Q6H PRN IV NAUSEA AND/OR VOMITING; Start 01/13/17 at 19:30 Famotidine 20 mg 20 mg Q12 IV Last administered on 01/15/17 09:26; Admin Dose 20 MG; Start 01/13/17 at 21:00 Potassium Chloride 20 meq/ Lactated Ringer's 1,010 ml @ 150 mls/hr Q6H44M IV Last administered on 01/15/17 11:35; Admin Dose 150 MLS/HR; Start 01/13/17 at 19:25 Cefazolin Sodium 50 ml @ 100 mls/hr Q8H IVPB Last administered on 01/15/17 11 :35; Admin Dose 100 MLS/HR; Start 01/14/17 at 03:00 Metronidazole (Flagyl 500 Mg (Pmx)) 100 ml @ 100 mls/hr Q8H IVPB Last administered on 01/15/17 15:59; Admin Dose 100 MLS/HR; Start 01/13/17 at 23:47 Diagnostic Test (Pha) (Accu-Chek) 1 ea Q4 XX Last administered on 01/15/17 13: 33; Admin Dose 1 EA; Start 01/15/17 at 09:00 Insulin Aspart (Novolog Insulin Pen) (Adult SC Insulin - Mild Algorithm)... Q4 SC ; Start 01/15/17 at 09:00 MATHIEU WALSH Jan 15, 2017 17:41
[2017-01-15 21:08] VITALS: BP 119/53; RESP 22
[2017-01-15] MEDS: ACETAMINOPHEN 1000MG/100ML IV 100 ML IVPB PRN (23:25)
[2017-01-16] MEDS: Insulin NOVOLOG SS MILD Algorithm (NPO/TPN/ENTERAL FEEDS) SC SCH ×6 (01:00→21:00)
[2017-01-16] MEDS: ACCU-CHEK XX SCH ×6 (01:00→21:00)
[2017-01-16 02:14] VITALS: BP 120/58; RESP 20
[2017-01-16] MEDS: LEVALBUTEROL (NEB) 0.63 MG/3 ML AMP HHN PRN ×2 (02:18→13:52)
[2017-01-16] MEDS: CEFAZOLIN 1 GM/50 ML (PMX) 50 ML IVPB SCH ×3 (03:34→18:44)
[2017-01-16] MEDS: HYDROmorphONE 1 MG/ML SYG IV PRN ×6 (04:08→23:40)
[2017-01-16 05:38] LABS: BASOPHIL # 0.1 10^3/ul (0.0-0.1); BASOPHILS % 0.6 % (0.0-2.0); EOSINOPHILS # 0.2 10^3/ul (0.0-0.5); EOSINOPHILS % 1.7 % (0.0-7.0); HEMATOCRIT 24.9 % (37.0-47.0); HEMOGLOBIN 8.4 g/dl (12.0-16.0); LYMPHOCYTES # 1.1 10^3/ul (0.8-2.9); LYMPHOCYTES % 11.5 % (15.0-51.0); MEAN CORPUSCULAR HEMOGLOBIN 28.8 pg (29.0-33.0); MEAN CORPUSCULAR HGB CONC 33.7 g/dl (32.0-37.0); MEAN CORPUSCULAR VOLUME 85.3 fl (82.0-101.0); MEAN PLATELET VOLUME 10.4 fl (7.4-10.4); MONOCYTE # 0.6 10^3/ul (0.3-0.9); MONOCYTES % 6.3 % (0.0-11.0); NEUTROPHIL # 7.7 10^3/ul (1.6-7.5); NEUTROPHILS % 79.5 % (39.0-77.0); PLATELET COUNT 184 10^3/UL (140-415); RED BLOOD COUNT 2.92 10^6/ul (4.20-5.40); RED CELL DISTRIBUTION WIDTH 13.8 % (11.5-14.5); WHITE BLOOD COUNT 9.6 10^3/ul (4.8-10.8)
[2017-01-16 06:07] LABS: CALCIUM 8.3 mg/dl (8.4-10.2); CREATININE 0.57 mg/dl (0.44-1.00); POTASSIUM 3.9 mmol/L (3.5-5.1)
[2017-01-16] MEDS: POTASSIUM CHLORIDE 20 MEQ in LACTATED RINGER'S 1,000 ML IV SCH ×4 (06:23→23:40)
[2017-01-16 06:36] LABS: ADD UMIC YES; UR ASCORBIC ACID NEGATIVE (NEGATIVE); UR BILIRUBIN (Dip) NEGATIVE (NEGATIVE); UR BLOOD (Dip) 3+ mg/dL (NEGATIVE); UR CLARITY SLIGHTLY CLOUDY (CLEAR); UR COLOR YELLOW (YELLOW); UR GLUCOSE (Dip) NEGATIVE (NEGATIVE); UR KETONES (Dip) 2+ mg/dL (NEGATIVE); UR LEUKOCYTE ESTERASE (Dip) 1+ Leu/ul (NEGATIVE); UR MUCUS FEW /HPF (NONE SEEN); UR NITRITE (Dip) NEGATIVE (NEGATIVE); UR RBC > 182 /HPF (0-5); UR SPECIFIC GRAVITY (Dip) 1.013 (1.003-1.030); UR TOTAL PROTEIN (Dip) 1+ mg/dl (NEGATIVE); UR UROBILINOGEN (Dip) NEGATIVE (NEGATIVE)
[2017-01-16 08:46] VITALS: BP 115/54; RESP 16
--- NOTE | 2017-01-16 08:48 | CONS ---
Date/Time of Note Date/Time of Note DATE: 01/16/17 TIME: 08:40 Consult Date/Type/Reason Admit Date/Time Jan 13, 2017 at 10:46 Initial Consult Date 01/14/17 Type of Consultation: oncology Ordering Provider: JEFF PALOMINO MD Subjective Pt doing ok. Pain controlled. NGT still suctioning. Denies flatus but feels rumbling in her belly. Low grade temp overnight. Objective Vital Signs Date Time Temp Pulse Resp B/P Pulse Ox O2 Delivery O2 Flow Rate FiO2 01/16/17 06:00 98.2 01/16/17 02:14 89 20 120/58 97 01/16/17 02:11 Nasal Cannula 2.0 Intake and Output 01/15/17 01/15/17 01/16/17 15:00 23:00 07:00 Intake Total 1150 ml 900 ml 1520 ml Output Total 1270 ml 1365 ml Balance 1150 ml -370 ml 155 ml Exam NAD/A&Ox4 OP dry NGT to suction RRR no m/g/r CTA B Distended, no BS, wound covered No c/c/e Results/Medications Result Diagram: 01/16/17 0446 01/16/17 0446 Results 24 hrs Laboratory Tests Test 01/15/17 09:22 01/15/17 13:24 01/15/17 17:48 01/15/17 20:41 Bedside Glucose 129 123 123 114 Test 01/16/17 01:36 01/16/17 03:50 01/16/17 04:46 01/16/17 05:50 Bedside Glucose 109 122 Urine Color YELLOW Urine Clarity SLIGHTLY CLOUDY A Urine pH 6.0 Urine Specific [place] 1.013 Urine Ketones 2+ H Urine Nitrite NEGATIVE Urine Bilirubin NEGATIVE Urine Urobilinogen NEGATIVE Urine Leukocyte Esterase 1+ H Urine Microscopic RBC > 182 H Urine Microscopic WBC 27 H Urine Calcium Oxalate Crystals FEW A Urine Mucus FEW A Urine Hemoglobin 3+ H Urine Glucose NEGATIVE Urine Total Protein 1+ H White Blood Count 9.6 Red Blood Count 2.92 L Hemoglobin 8.4 L Hematocrit 24.9 L Mean Corpuscular Volume 85.3 Mean Corpuscular Hemoglobin 28.8 L Mean Corpuscular Hemoglobin Concent 33.7 Red Cell Distribution Width 13.8 Platelet Count 184 Mean Platelet Volume 10.4 Neutrophils % 79.5 H Lymphocytes % 11.5 L Monocytes % 6.3 Eosinophils % 1.7 Basophils % 0.6 Nucleated Red Blood Cells % 0.0 Neutrophils # 7.7 H Lymphocytes # 1.1 Monocytes # 0.6 Eosinophils # 0.2 Basophils # 0.1 Nucleated Red Blood Cells # 0.0 Sodium Level 135 Potassium Level 3.9 Chloride Level 103 Carbon Dioxide Level 28 Anion Gap 8 Blood Urea Nitrogen 9 Creatinine 0.57 Glucose Level 107 # Calcium Level 8.3 L Medications Current Medications Miscellaneous Information 1 ea NOTE XX ; Start 01/13/17 at 08:30 Glucose (Glutose) 15 gm Q15M PRN PO DECREASED GLUCOSE; Start 01/13/17 at 08:30 Glucose (Glutose) 22.5 gm Q15M PRN PO DECREASED GLUCOSE; Start 01/13/17 at 08: 30 Dextrose (D50w Syringe) 25 ml Q15M PRN IV DECREASED GLUCOSE; Start 01/13/17 at 08:30 Dextrose (D50w Syringe) 50 ml Q15M PRN IV DECREASED GLUCOSE; Start 01/13/17 at 08:30 Glucagon (Glucagen) 1 mg Q15M PRN IM DECREASED GLUCOSE; Start 01/13/17 at 08:30 Glucose 15 gm 15 gm Q15M PRN BUCCAL DECREASED GLUCOSE; Start 01/13/17 at 08:30 Potassium Chloride/Dextrose/ Sod Cl (D5-NS + KCl 20 Meq) 1,000 ml @ 100 mls/hr Q10H IV ; Start 01/13/17 at 11:30; Status Future Hold Hydromorphone HCl (Dilaudid) 1 mg Q2H PRN IV PAIN LEVEL 6-10 Last administered on 01/16/17 04:08; Admin Dose 1 MG; Start 01/13/17 at 19:30 Diphenhydramine HCl (Benadryl) 25 mg Q6H PRN IV ITCHING; Start 01/13/17 at 19: 30 Ondansetron HCl (Zofran Inj) 4 mg Q6H PRN IV NAUSEA AND/OR VOMITING; Start 01/13/17 at 19:30 Famotidine 20 mg 20 mg Q12 IV Last administered on 01/15/17 20:40; Admin Dose 20 MG; Start 01/13/17 at 21:00 Potassium Chloride 20 meq/ Lactated Ringer's 1,010 ml @ 150 mls/hr Q6H44M IV Last administered on 01/16/17 06:23; Admin Dose 150 MLS/HR; Start 01/13/17 at 19:25 Cefazolin Sodium 50 ml @ 100 mls/hr Q8H IVPB Last administered on 01/16/17 03 :34; Admin Dose 100 MLS/HR; Start 01/14/17 at 03:00 Metronidazole (Flagyl 500 Mg (Pmx)) 100 ml @ 100 mls/hr Q8H IVPB Last administered on 01/15/17 23:45; Admin Dose 100 MLS/HR; Start 01/13/17 at 23:47 Diagnostic Test (Pha) (Accu-Chek) 1 ea Q4 XX Last administered on 01/15/17 17: 51; Admin Dose 1 EA; Start 01/15/17 at 09:00 Insulin Aspart (Adult SC Insulin - Mild Algorithm)... Q4 SC ; Start 01/15/17 at 09:00 Acetaminophen (Ofirmev 1000mg/ 100ml Iv) 100 ml @ 400 mls/hr Q6H PRN IVPB fever Last administered on 01/15/17 23:25; Admin Dose 400 MLS/HR; Start at 23:00 Assessment/Plan Problems: (1) Ovarian cancer in remission Additional Assessment/Plan Pt with h/o ovarian cancer, high-grade serous histology, who underwent repeat laparotomy and found to have residual tumor in pelvic lymph nodes. Pt recovering post-op. Today is POD3. Pt had low grade temp. Has abd pain but controlled with medications. Mild anemia present but likely related to recent surgery and underlying inflammation. Not on DVT ppx. High risk for DVT. 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 -Check UA for UTI -Check CXR to rule out nosocomial pna/asp pna DONNY YUNG Jan 16, 2017 08:48
--- NOTE | 2017-01-16 09:14 | PN ---
Date/Time of Note Date/Time of Note DATE: 01/16/17 TIME: 09:09 Assessment/Plan VTE Prophylaxis VTE Prophylaxis Intervention: LMWH Lines/Catheters IV Catheter Type (from [facility] [place]): Central Line Central line still needed: Yes Urinary Cath still in place: Yes Reason Cath still needed: urinary retention Assessment/Plan Chief Complaint/Hosp Course recurrent ovarian cancer Problems: Assessment/Plan A- improving P- reiterated need to keep Preciado ~ 1 month to NOT risk retention and discussed surgery and findings Ambulate and agree with Lovenox Subjective 24 Hr Interval Summary Free Text/Dictation Feels better but no flatus. Exam/Review of Systems Vital Signs Vitals Vital Signs Date Time Temp Pulse Resp B/P Pulse Ox O2 Delivery O2 Flow Rate FiO2 01/16/17 08:46 98.8 89 16 115/54 100 01/16/17 02:11 Nasal Cannula 2.0 Intake and Output 01/15/17 01/15/17 01/16/17 15:00 23:00 07:00 Intake Total 1150 ml 900 ml 1520 ml Output Total 1270 ml 1365 ml Balance 1150 ml -370 ml 155 ml Exam Resp- clear CVS- nsr Abd- mildly tender and soft and clean Ext- NT minimal edema Results Result Diagram: 01/16/17 0446 01/16/17 0446 Results 24 hrs Laboratory Tests Test 01/15/17 09:22 01/15/17 13:24 01/15/17 17:48 01/15/17 20:41 Bedside Glucose 129 123 123 114 Test 01/16/17 01:36 01/16/17 03:50 01/16/17 04:46 01/16/17 05:50 Bedside Glucose 109 122 Urine Color YELLOW Urine Clarity SLIGHTLY CLOUDY A Urine pH 6.0 Urine Specific [place] 1.013 Urine Ketones 2+ H Urine Nitrite NEGATIVE Urine Bilirubin NEGATIVE Urine Urobilinogen NEGATIVE Urine Leukocyte Esterase 1+ H Urine Microscopic RBC > 182 H Urine Microscopic WBC 27 H Urine Calcium Oxalate Crystals FEW A Urine Mucus FEW A Urine Hemoglobin 3+ H Urine Glucose NEGATIVE Urine Total Protein 1+ H White Blood Count 9.6 Red Blood Count 2.92 L Hemoglobin 8.4 L Hematocrit 24.9 L Mean Corpuscular Volume 85.3 Mean Corpuscular Hemoglobin 28.8 L Mean Corpuscular Hemoglobin Concent 33.7 Red Cell Distribution Width 13.8 Platelet Count 184 Mean Platelet Volume 10.4 Neutrophils % 79.5 H Lymphocytes % 11.5 L Monocytes % 6.3 Eosinophils % 1.7 Basophils % 0.6 Nucleated Red Blood Cells % 0.0 Neutrophils # 7.7 H Lymphocytes # 1.1 Monocytes # 0.6 Eosinophils # 0.2 Basophils # 0.1 Nucleated Red Blood Cells # 0.0 Sodium Level 135 Potassium Level 3.9 Chloride Level 103 Carbon Dioxide Level 28 Anion Gap 8 Blood Urea Nitrogen 9 Creatinine 0.57 Glucose Level 107 # Calcium Level 8.3 L Medications Medications Current Medications Miscellaneous Information 1 ea NOTE XX ; Start 01/13/17 at 08:30 Glucose (Glutose) 15 gm Q15M PRN PO DECREASED GLUCOSE; Start 01/13/17 at 08:30 Glucose (Glutose) 22.5 gm Q15M PRN PO DECREASED GLUCOSE; Start 01/13/17 at 08: 30 Dextrose (D50w Syringe) 25 ml Q15M PRN IV DECREASED GLUCOSE; Start 01/13/17 at 08:30 Dextrose (D50w Syringe) 50 ml Q15M PRN IV DECREASED GLUCOSE; Start 01/13/17 at 08:30 Glucagon (Glucagen) 1 mg Q15M PRN IM DECREASED GLUCOSE; Start 01/13/17 at 08:30 Glucose 15 gm 15 gm Q15M PRN BUCCAL DECREASED GLUCOSE; Start 01/13/17 at 08:30 Potassium Chloride/Dextrose/ Sod Cl (D5-NS + KCl 20 Meq) 1,000 ml @ 100 mls/hr Q10H IV ; Start 01/13/17 at 11:30; Status Future Hold Hydromorphone HCl (Dilaudid) 1 mg Q2H PRN IV PAIN LEVEL 6-10 Last administered on 01/16/17 04:08; Admin Dose 1 MG; Start 01/13/17 at 19:30 Diphenhydramine HCl (Benadryl) 25 mg Q6H PRN IV ITCHING; Start 01/13/17 at 19: 30 Ondansetron HCl (Zofran Inj) 4 mg Q6H PRN IV NAUSEA AND/OR VOMITING; Start 01/13/17 at 19:30 Famotidine 20 mg 20 mg Q12 IV Last administered on 01/15/17 20:40; Admin Dose 20 MG; Start 01/13/17 at 21:00 Potassium Chloride 20 meq/ Lactated Ringer's 1,010 ml @ 150 mls/hr Q6H44M IV Last administered on 01/16/17 06:23; Admin Dose 150 MLS/HR; Start 01/13/17 at 19:25 Cefazolin Sodium 50 ml @ 100 mls/hr Q8H IVPB Last administered on 01/16/17 03 :34; Admin Dose 100 MLS/HR; Start 01/14/17 at 03:00 Metronidazole (Flagyl 500 Mg (Pmx)) 100 ml @ 100 mls/hr Q8H IVPB Last administered on 01/15/17 23:45; Admin Dose 100 MLS/HR; Start 01/13/17 at 23:47 Diagnostic Test (Pha) (Accu-Chek) 1 ea Q4 XX Last administered on 01/15/17 17: 51; Admin Dose 1 EA; Start 01/15/17 at 09:00 Insulin Aspart (Adult SC Insulin - Mild Algorithm)... Q4 SC ; Start 01/15/17 at 09:00 Acetaminophen (Ofirmev 1000mg/ 100ml Iv) 100 ml @ 400 mls/hr Q6H PRN IVPB fever Last administered on 01/15/17 23:25; Admin Dose 400 MLS/HR; Start at 23:00 JEFF PALOMINO MD Jan 16, 2017 09:14
[2017-01-16] MEDS: metroNIDAZOLE 500 MG/NS (PMX) 100 ML IVPB SCH ×3 (09:29→23:40)
[2017-01-16] MEDS: FAMOTIDINE 20 MG INJ IV SCH ×3 (09:29→21:20)
[2017-01-16] MEDS: ENOXAPARIN 30 MG/0.3 ML SYG SC SCH (11:42)
--- NOTE | 2017-01-16 12:16 | RADRPT ---
PROCEDURE: XR Chest. CLINICAL INDICATION: Cough and fever. TECHNIQUE: Single frontal view. COMPARISON: 01/13/2017. FINDINGS: The left internal jugular vein catheter, right internal jugular vein Port-A-Cath, and nasogastric tu be are in satisfactory position. There are low lung volumes and mild atelectasis at the lung bases. The lungs are otherwise clear. The heart is enlarged. There is calcification in the aorta consistent with atherosclerosis. There is no pleural effusion. There is no pneumothorax. IMPRESSION: 1. Tubes and lines in satisfactory position. 2. No change in the appearance of the lungs when compared with 01/13/2017. RPTAT: QQ .Grover Ayala MD, MD Date Time Electronically viewed and signed by .Grover Ayala MD, on 01/16/2017 12:16 .R/
[2017-01-16] MEDS ORDERED: PHENOL 1.4% SOLN 180 ML BTL MT PRN (13:30)
[2017-01-16 13:59] VITALS: BP 139/60; RESP 21
--- NOTE | 2017-01-16 14:14 | PN ---
Date/Time of Note Date/Time of Note DATE: 01/16/17 TIME: 14:08 Assessment/Plan VTE Prophylaxis VTE Prophylaxis Intervention: SCD's Lines/Catheters IV Catheter Type (from Nrs): port a cath Urinary Cath still in place: Yes Assessment/Plan Assessment/Plan - Mild Febrile illness- On Ancef/Flagyl - per sx, - cont to monitor - Recurrent/persistent ovarian cancer, status post secondary cytoreduction surgery. Continue IV fluids. 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 Pedroza. - DM with hemoglobin A1c 6.3. Continue NovoLog per mild algorithm sliding scale. Further recommendations based on clinical course. Plan of care of care discussed with Dr. Phelps Exam/Review of Systems Vital Signs Vitals Vital Signs Date Time Temp Pulse Resp B/P Pulse Ox O2 Delivery O2 Flow Rate FiO2 01/16/17 13:59 99.7 92 21 139/60 96 01/16/17 13:55 Nasal Cannula 2.0 28 Intake and Output 01/15/17 01/15/17 01/16/17 15:00 23:00 07:00 Intake Total 1150 ml 900 ml 1520 ml Output Total 1270 ml 1365 ml Balance 1150 ml -370 ml 155 ml Exam Constitutional: alert, oriented, well developed Respiratory: diminished breath sounds, normal air movement Cardiovascular: nl pulses, regular rate and rhythm Gastrointestinal: other, soft Musculoskeletal: nl extremities to inspection Extremities: normal pulses Neurological: nl mental status, nl speech Results Result Diagram: 01/16/17 0446 01/16/17 0446 Results 24 hrs Laboratory Tests Test 01/15/17 17:48 01/15/17 20:41 01/16/17 01:36 01/16/17 03:50 Bedside Glucose 123 114 109 Urine Color YELLOW Urine Clarity SLIGHTLY CLOUDY A Urine pH 6.0 Urine Specific [place] 1.013 Urine Ketones 2+ H Urine Nitrite NEGATIVE Urine Bilirubin NEGATIVE Urine Urobilinogen NEGATIVE Urine Leukocyte Esterase 1+ H Urine Microscopic RBC > 182 H Urine Microscopic WBC 27 H Urine Calcium Oxalate Crystals FEW A Urine Mucus FEW A Urine Hemoglobin 3+ H Urine Glucose NEGATIVE Urine Total Protein 1+ H Test 01/16/17 04:46 01/16/17 05:50 01/16/17 09:23 01/16/17 12:45 White Blood Count 9.6 Red Blood Count 2.92 L Hemoglobin 8.4 L Hematocrit 24.9 L Mean Corpuscular Volume 85.3 Mean Corpuscular Hemoglobin 28.8 L Mean Corpuscular Hemoglobin Concent 33.7 Red Cell Distribution Width 13.8 Platelet Count 184 Mean Platelet Volume 10.4 Neutrophils % 79.5 H Lymphocytes % 11.5 L Monocytes % 6.3 Eosinophils % 1.7 Basophils % 0.6 Nucleated Red Blood Cells % 0.0 Neutrophils # 7.7 H Lymphocytes # 1.1 Monocytes # 0.6 Eosinophils # 0.2 Basophils # 0.1 Nucleated Red Blood Cells # 0.0 Sodium Level 135 Potassium Level 3.9 Chloride Level 103 Carbon Dioxide Level 28 Anion Gap 8 Blood Urea Nitrogen 9 Creatinine 0.57 Glucose Level 107 # Calcium Level 8.3 L Bedside Glucose 122 115 106 Medications Medications Current Medications Miscellaneous Information 1 ea NOTE XX ; Start 01/13/17 at 08:30 Glucose (Glutose) 15 gm Q15M PRN PO DECREASED GLUCOSE; Start 01/13/17 at 08:30 Glucose (Glutose) 22.5 gm Q15M PRN PO DECREASED GLUCOSE; Start 01/13/17 at 08: 30 Dextrose (D50w Syringe) 25 ml Q15M PRN IV DECREASED GLUCOSE; Start 01/13/17 at 08:30 Dextrose (D50w Syringe) 50 ml Q15M PRN IV DECREASED GLUCOSE; Start 01/13/17 at 08:30 Glucagon (Glucagen) 1 mg Q15M PRN IM DECREASED GLUCOSE; Start 01/13/17 at 08:30 Glucose 15 gm 15 gm Q15M PRN BUCCAL DECREASED GLUCOSE; Start 01/13/17 at 08:30 Potassium Chloride/Dextrose/ Sod Cl (D5-NS + KCl 20 Meq) 1,000 ml @ 100 mls/hr Q10H IV ; Start 01/13/17 at 11:30; Status Future Hold Hydromorphone HCl (Dilaudid) 1 mg Q2H PRN IV PAIN LEVEL 6-10 Last administered on 01/16/17t 09:29; Admin Dose 1 MG; Start 01/13/17 at 19:30 Diphenhydramine HCl (Benadryl) 25 mg Q6H PRN IV ITCHING; Start 01/13/17 at 19: 30 Ondansetron HCl (Zofran Inj) 4 mg Q6H PRN IV NAUSEA AND/OR VOMITING; Start 01/13/17 at 19:30 Famotidine 20 mg 20 mg Q12 IV Last administered on 01/16/17 09:29; Admin Dose 20 MG; Start 01/13/17 at 21:00 Potassium Chloride 20 meq/ Lactated Ringer's 1,010 ml @ 150 mls/hr Q6H44M IV Last administered on 01/16/17 11:41; Admin Dose 150 MLS/HR; Start 01/13/17 at 19:25 Cefazolin Sodium 50 ml @ 100 mls/hr Q8H IVPB Last administered on 01/16/17 11 :40; Admin Dose 100 MLS/HR; Start 01/14/17 at 03:00 Metronidazole (Flagyl 500 Mg (Pmx)) 100 ml @ 100 mls/hr Q8H IVPB Last administered on 01/16/17 09:29; Admin Dose 100 MLS/HR; Start 01/13/17 at 23:47 Diagnostic Test (Pha) (Accu-Chek) 1 ea Q4 XX Last administered on 01/16/17 09: 29; Admin Dose 1 EA; Start 01/15/17 at 09:00 Insulin Aspart (Adult SC Insulin - Mild Algorithm)... Q4 SC ; Start 01/15/17 at 09:00 Acetaminophen (Ofirmev 1000mg/ 100ml Iv) 100 ml @ 400 mls/hr Q6H PRN IVPB fever Last administered on 01/15/17 23:25; Admin Dose 400 MLS/HR; Start at 23:00 Enoxaparin Sodium (Lovenox) 30 mg DAILY SC Last administered on 01/16/17 11:42 ; Admin Dose 30 MG; Start 01/16/17 at 10:00 Phenol (Chloraseptic Throat [place]) 2 spray Q2H PRN MT SORE THROAT; Start at 13:30 YFN BRIAN Jan 16, 2017 14:14
[2017-01-16] MEDS: ACETAMINOPHEN 1000MG/100ML IV 100 ML IVPB PRN (14:21)
[2017-01-16 20:51] VITALS: BP 118/58; RESP 19
[2017-01-17] MEDS: ACCU-CHEK XX SCH ×6 (01:00→21:21)
[2017-01-17] MEDS: Insulin NOVOLOG SS MILD Algorithm (NPO/TPN/ENTERAL FEEDS) SC SCH ×6 (01:00→21:00)
[2017-01-17 02:29] VITALS: BP 124/60; RESP 19
[2017-01-17] MEDS: HYDROmorphONE 1 MG/ML SYG IV PRN ×4 (03:07→19:58)
[2017-01-17] MEDS: CEFAZOLIN 1 GM/50 ML (PMX) 50 ML IVPB SCH ×3 (03:07→18:34)
[2017-01-17] MEDS: POTASSIUM CHLORIDE 20 MEQ in LACTATED RINGER'S 1,000 ML IV SCH ×3 (04:13→18:34)
[2017-01-17 06:19] LABS: BASOPHIL # 0.1 10^3/ul (0.0-0.1); BASOPHILS % 0.5 % (0.0-2.0); EOSINOPHILS # 0.2 10^3/ul (0.0-0.5); EOSINOPHILS % 1.5 % (0.0-7.0); HEMATOCRIT 24.8 % (37.0-47.0); HEMOGLOBIN 8.2 g/dl (12.0-16.0); LYMPHOCYTES # 0.7 10^3/ul (0.8-2.9); LYMPHOCYTES % 7.2 % (15.0-51.0); MEAN CORPUSCULAR HEMOGLOBIN 27.9 pg (29.0-33.0); MEAN CORPUSCULAR HGB CONC 33.1 g/dl (32.0-37.0); MEAN CORPUSCULAR VOLUME 84.4 fl (82.0-101.0); MEAN PLATELET VOLUME 10.1 fl (7.4-10.4); MONOCYTE # 0.6 10^3/ul (0.3-0.9); MONOCYTES % 6.1 % (0.0-11.0); NEUTROPHIL # 8.4 10^3/ul (1.6-7.5); PLATELET COUNT 211 10^3/UL (140-415); RED BLOOD COUNT 2.94 10^6/ul (4.20-5.40); RED CELL DISTRIBUTION WIDTH 13.8 % (11.5-14.5)
[2017-01-17 07:11] LABS: CALCIUM 8.4 mg/dl (8.4-10.2); CREATININE 0.56 mg/dl (0.44-1.00); POTASSIUM 4.1 mmol/L (3.5-5.1)
--- NOTE | 2017-01-17 07:41 | CONS ---
Date/Time of Note Date/Time of Note DATE: 01/17/17 TIME: 07:36 Consult Date/Type/Reason Admit Date/Time Jan 13, 2017 at 10:46 am Initial Consult Date 01/14/17 Type of Consultation: oncology Ordering Provider: JEFF PALOMINO MD Subjective Pt c/o difficulty swallowing with NGT in place. Passing gas. Low grade temp but less than 100 overnight. Objective Vital Signs Date Time Temp Pulse Resp B/P Pulse Ox O2 Delivery O2 Flow Rate FiO2 01/17/17 02:29 98.6 89 19 124/60 98 01/17/17 00:39 2.0 28 01/16/17 20:00 Nasal Cannula Intake and Output 01/16/17 01/16/17 01/17/17 15:00 23:00 07:00 Intake Total 1240 ml 600 ml 1210 ml Output Total 1770 ml 890 ml Balance 1240 ml -1170 ml 320 ml Exam NAD/A&OX4 NGT in place OP clear RRR no m/g/r CTA B Distended, hypoactive BS, wound: covered No c/c/e Results/Medications Result Diagram: 01/17/17 0501 01/17/17 0501 Results 24 hrs Laboratory Tests Test 01/16/17 09:23 01/16/17 12:45 01/16/17 17:21 01/16/17 21:03 Bedside Glucose 115 106 94 91 Test 01/17/17 01:14 01/17/17 05:01 01/17/17 05:56 Bedside Glucose 91 100 White Blood Count 10.0 Red Blood Count 2.94 L Hemoglobin 8.2 L Hematocrit 24.8 L Mean Corpuscular Volume 84.4 Mean Corpuscular Hemoglobin 27.9 L Mean Corpuscular Hemoglobin Concent 33.1 Red Cell Distribution Width 13.8 Platelet Count 211 Mean Platelet Volume 10.1 Neutrophils % 84.0 H Lymphocytes % 7.2 L Monocytes % 6.1 Eosinophils % 1.5 Basophils % 0.5 Nucleated Red Blood Cells % 0.0 Neutrophils # 8.4 H Lymphocytes # 0.7 L Monocytes # 0.6 Eosinophils # 0.2 Basophils # 0.1 Nucleated Red Blood Cells # 0.0 Sodium Level 133 L Potassium Level 4.1 Chloride Level 102 Carbon Dioxide Level 24 Anion Gap 11 Blood Urea Nitrogen 9 Creatinine 0.56 Glucose Level 88 Calcium Level 8.4 Medications Current Medications Miscellaneous Information 1 ea NOTE XX ; Start 01/13/17 at 08:30 Glucose (Glutose) 15 gm Q15M PRN PO DECREASED GLUCOSE; Start 01/13/17 at 08:30 Glucose (Glutose) 22.5 gm Q15M PRN PO DECREASED GLUCOSE; Start 01/13/17 at 08: 30 Dextrose (D50w Syringe) 25 ml Q15M PRN IV DECREASED GLUCOSE; Start 01/13/17 at 08:30 Dextrose (D50w Syringe) 50 ml Q15M PRN IV DECREASED GLUCOSE; Start 01/13/17 at 08:30 Glucagon (Glucagen) 1 mg Q15M PRN IM DECREASED GLUCOSE; Start 01/13/17 at 08:30 Glucose 15 gm 15 gm Q15M PRN BUCCAL DECREASED GLUCOSE; Start 01/13/17 at 08:30 Potassium Chloride/Dextrose/ Sod Cl (D5-NS + KCl 20 Meq) 1,000 ml @ 100 mls/hr Q10H IV ; Start 01/13/17 at 11:30; Status Future Hold Hydromorphone HCl (Dilaudid) 1 mg Q2H PRN IV PAIN LEVEL 6-10 Last administered on 01/17/17 03:07; Admin Dose 1 MG; Start 01/13/17 at 19:30 Diphenhydramine HCl (Benadryl) 25 mg Q6H PRN IV ITCHING; Start 01/13/17 at 19: 30 Ondansetron HCl (Zofran Inj) 4 mg Q6H PRN IV NAUSEA AND/OR VOMITING; Start 01/13/17 at 19:30 Famotidine 20 mg 20 mg Q12 IV Last administered on 01/16/17 21:20; Admin Dose 20 MG; Start 01/13/17 at 21:00 Potassium Chloride 20 meq/ Lactated Ringer's 1,010 ml @ 150 mls/hr Q6H44M IV Last administered on 01/16/17 23:40; Admin Dose 150 MLS/HR; Start 01/13/17 at 19:25 Cefazolin Sodium 50 ml @ 100 mls/hr Q8H IVPB Last administered on 01/17/17 03 :07; Admin Dose 100 MLS/HR; Start 01/14/17 at 03:00 Metronidazole (Flagyl 500 Mg (Pmx)) 100 ml @ 100 mls/hr Q8H IVPB Last administered on 01/16/17 23:40; Admin Dose 100 MLS/HR; Start 01/13/17 at 23:47 Diagnostic Test (Pha) (Accu-Chek) 1 ea Q4 XX Last administered on 01/16/17 17: 01; Admin Dose 1 EA; Start 01/15/17 at 09:00 Insulin Aspart (Adult SC Insulin - Mild Algorithm)... Q4 SC ; Start 01/15/17 at 09:00 Acetaminophen (Ofirmev 1000mg/ 100ml Iv) 100 ml @ 400 mls/hr Q6H PRN IVPB fever Last administered on 01/16/17 14:21; Admin Dose 400 MLS/HR; Start at 23:00 Enoxaparin Sodium (Lovenox) 30 mg DAILY SC Last administered on 01/16/17 11:42 ; Admin Dose 30 MG; Start 01/16/17 at 10:00 Phenol (Chloraseptic Throat [place]) 2 spray Q2H PRN MT SORE THROAT Last administered on 01/16/17 14:07; Admin Dose 2 SPRAY; Start 01/16/17 at 13:30 Assessment/Plan Additional Assessment/Plan 64yo female with recurrent ovarian cancer, s/p laparotomy-POD4. Recovering slowly. CXR and UA clear. Dysphagia likely due to having NGT in place and perhaps related to recent intubation. Perhaps also related to GERD Now passing gas. Perhaps can have NGT clamped today. -start PPI -Cont DVT ppx -Cont post-op care Rito/Randee to f/u in am. Donny Yung MD Heme/Onc DONNY YUNG Jan 17, 2017 7:41 am
[2017-01-17 08:00] VITALS: BP 143/62; RESP 18
[2017-01-17] MEDS: metroNIDAZOLE 500 MG/NS (PMX) 100 ML IVPB SCH ×3 (08:15→23:30)
[2017-01-17] MEDS: FAMOTIDINE 20 MG INJ IV SCH ×2 (08:16→21:21)
[2017-01-17] MEDS: ENOXAPARIN 30 MG/0.3 ML SYG SC SCH (08:18)
[2017-01-17] MEDS: PANTOPRAZOLE 40 MG INJ IV SCH (08:27)
--- NOTE | 2017-01-17 13:06 | PN ---
Date/Time of Note Date/Time of Note DATE: 01/17/17 TIME: 13:03 Assessment/Plan Lines/Catheters IV Catheter Type (from Nrs): port a cath Urinary Cath still in place: Yes Assessment/Plan Assessment/Plan - Mild Febrile illness- On Ancef/Flagyl - per sx, - cont to monitor - Recurrent/persistent ovarian cancer, status post secondary cytoreduction surgery. Continue IV fluids. 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 Pedroza. - DM with hemoglobin A1c 6.3. Continue NovoLog per mild algorithm sliding scale. Further recommendati Subjective 24 Hr Interval Summary Constitutional: requiring IVF, requiring O2 ENT: other (throat pain sec to NGT) Respiratory: no complaints Cardiovascular: no complaints Gastrointestinal: other (NGT- attached to LIS- drainage 50 cc n dark green from last night), pain (surgical abdomed- Dressings x2 - DDI) Musculoskeletal: no complaints Exam/Review of Systems Vital Signs Vitals Vital Signs Date Time Temp Pulse Resp B/P Pulse Ox O2 Delivery O2 Flow Rate FiO2 01/17/17 09:00 Nasal Cannula 2.0 01/17/17 08:00 99.8 92 18 143/62 96 01/17/17 00:39 28 Intake and Output 01/16/17 01/16/17 01/17/17 15:00 23:00 07:00 Intake Total 1240 ml 600 ml 1260 ml Output Total 1770 ml 890 ml Balance 1240 ml -1170 ml 370 ml Exam Constitutional: alert, oriented, well developed Respiratory: clear to auscultation Cardiovascular: nl pulses, regular rate and rhythm Gastrointestinal: other, soft Extremities: normal pulses Neurological: nl mental status, nl speech Skin: other Results Result Diagram: 01/17/17 0501 01/17/17 0501 Results 24 hrs Laboratory Tests Test 01/16/17 17:21 01/16/17 21:03 01/17/17 01:14 01/17/17 05:01 Bedside Glucose 94 91 91 White Blood Count 10.0 Red Blood Count 2.94 L Hemoglobin 8.2 L Hematocrit 24.8 L Mean Corpuscular Volume 84.4 Mean Corpuscular Hemoglobin 27.9 L Mean Corpuscular Hemoglobin Concent 33.1 Red Cell Distribution Width 13.8 Platelet Count 211 Mean Platelet Volume 10.1 Neutrophils % 84.0 H Lymphocytes % 7.2 L Monocytes % 6.1 Eosinophils % 1.5 Basophils % 0.5 Nucleated Red Blood Cells % 0.0 Neutrophils # 8.4 H Lymphocytes # 0.7 L Monocytes # 0.6 Eosinophils # 0.2 Basophils # 0.1 Nucleated Red Blood Cells # 0.0 Sodium Level 133 L Potassium Level 4.1 Chloride Level 102 Carbon Dioxide Level 24 Anion Gap 11 Blood Urea Nitrogen 9 Creatinine 0.56 Glucose Level 88 Calcium Level 8.4 Test 01/17/17 05:56 01/17/17 09:20 Bedside Glucose 100 104 Medications Medications Current Medications Miscellaneous Information 1 ea NOTE XX ; Start 01/13/17 at 08:30 Glucose (Glutose) 15 gm Q15M PRN PO DECREASED GLUCOSE; Start 01/13/17 at 08:30 Glucose (Glutose) 22.5 gm Q15M PRN PO DECREASED GLUCOSE; Start 01/13/17 at 08: 30 Dextrose (D50w Syringe) 25 ml Q15M PRN IV DECREASED GLUCOSE; Start 01/13/17 at 08:30 Dextrose (D50w Syringe) 50 ml Q15M PRN IV DECREASED GLUCOSE; Start 01/13/17 at 08:30 Glucagon (Glucagen) 1 mg Q15M PRN IM DECREASED GLUCOSE; Start 01/13/17 at 08:30 Glucose (Glutose) 15 gm Q15M PRN BUCCAL DECREASED GLUCOSE; Start 01/13/17 at 08 :30 Hydromorphone HCl (Dilaudid) 1 mg Q2H PRN IV PAIN LEVEL 6-10 Last administered on 01/17/17 08:32; Admin Dose 1 MG; Start 01/13/17 at 19:30 Diphenhydramine HCl (Benadryl) 25 mg Q6H PRN IV ITCHING; Start 01/13/17 at 19: 30 Ondansetron HCl (Zofran Inj) 4 mg Q6H PRN IV NAUSEA AND/OR VOMITING; Start 01/13/17 at 19:30 Famotidine 20 mg 20 mg Q12 IV Last administered on 01/17/17 08:16; Admin Dose 20 MG; Start 01/13/17 at 21:00 Potassium Chloride 20 meq/ Lactated Ringer's 1,010 ml @ 150 mls/hr Q6H44M IV Last administered on 01/17/17 10:20; Admin Dose 150 MLS/HR; Start 01/13/17 at 19:25 Cefazolin Sodium 50 ml @ 100 mls/hr Q8H IVPB Last administered on 01/17/17 11 :39; Admin Dose 100 MLS/HR; Start 01/14/17 at 03:00 Metronidazole (Flagyl 500 Mg (Pmx)) 100 ml @ 100 mls/hr Q8H IVPB Last administered on 01/17/17 08:15; Admin Dose 100 MLS/HR; Start 01/13/17 at 23:47 Diagnostic Test (Pha) (Accu-Chek) 1 ea Q4 XX Last administered on 01/16/17 17: 01; Admin Dose 1 EA; Start 01/15/17 at 09:00 Insulin Aspart (Adult SC Insulin - Mild Algorithm)... Q4 SC ; Start 01/15/17 at 09:00 Acetaminophen (Ofirmev 1000mg/ 100ml Iv) 100 ml @ 400 mls/hr Q6H PRN IVPB fever Last administered on 01/16/17 14:21; Admin Dose 400 MLS/HR; Start at 23:00 Enoxaparin Sodium (Lovenox) 30 mg DAILY SC Last administered on 01/17/17 08:18 ; Admin Dose 30 MG; Start 01/16/17 at 10:00 Phenol (Chloraseptic Throat [place]) 2 spray Q2H PRN MT SORE THROAT Last administered on 01/16/17 14:07; Admin Dose 2 SPRAY; Start 01/16/17 at 13:30 Pantoprazole (Protonix Iv) 40 mg DAILY@06 IV Last administered on 01/17/17 08: 27; Admin Dose 40 MG; Start 01/17/17 at 08:00 YFN BRIAN Jan 17, 2017 13:06
[2017-01-17 14:00] VITALS: BP 146/66; RESP 18
--- NOTE | 2017-01-17 15:27 | PN ---
Date/Time of Note Date/Time of Note DATE: 01/17/17 TIME: 15:26 Assessment/Plan VTE Prophylaxis VTE Prophylaxis Intervention: LMWH Lines/Catheters IV [facility] Type (from [facility] port a cath Urinary Cath still in place: Yes Reason Cath still needed: other (indicate) Assessment/Plan Chief Complaint/Hosp Course recurrent ovarian cancer Problems: Assessment/Plan A- doing well P- adv diet gradually and OOB Subjective 24 Hr Interval Summary Free Text/Dictation Feels better and + flatus. Exam/Review of Systems Vital Signs Vitals Vital Signs Date Time Temp Pulse Resp B/P Pulse Ox O2 Delivery O2 Flow Rate FiO2 01/17/17 14:00 98.8 94 18 146/66 92 01/17/17 13:17 2.0 01/17/17 09:00 Nasal Cannula 01/17/17 00:39 28 Intake and Output 01/16/17 01/16/17 01/17/17 15:00 23:00 07:00 Intake Total 1240 ml 600 ml 1260 ml Output Total 1770 ml 890 ml Balance 1240 ml -1170 ml 370 ml Exam Resp- clear CVS- NSR Abd- soft NT and clean Ext: NT no edema Results Result Diagram: 01/17/17 0501 01/17/17 0501 Results 24 hrs Laboratory Tests Test 01/16/17 17:21 01/16/17 21:03 01/17/17 01:14 01/17/17 05:01 Bedside Glucose 94 91 91 White Blood Count 10.0 Red Blood Count 2.94 L Hemoglobin 8.2 L Hematocrit 24.8 L Mean Corpuscular Volume 84.4 Mean Corpuscular Hemoglobin 27.9 L Mean Corpuscular Hemoglobin Concent 33.1 Red Cell Distribution Width 13.8 Platelet Count 211 Mean Platelet Volume 10.1 Neutrophils % 84.0 H Lymphocytes % 7.2 L Monocytes % 6.1 Eosinophils % 1.5 Basophils % 0.5 Nucleated Red Blood Cells % 0.0 Neutrophils # 8.4 H Lymphocytes # 0.7 L Monocytes # 0.6 Eosinophils # 0.2 Basophils # 0.1 Nucleated Red Blood Cells # 0.0 Sodium Level 133 L Potassium Level 4.1 Chloride Level 102 Carbon Dioxide Level 24 Anion Gap 11 Blood Urea Nitrogen 9 Creatinine 0.56 Glucose Level 88 Calcium Level 8.4 Test 01/17/17 05:56 01/17/17 09:20 01/17/17 13:11 Bedside Glucose 100 104 106 Medications Medications Current Medications Miscellaneous Information 1 ea NOTE XX ; Start 01/13/17 at 08:30 Glucose (Glutose) 15 gm Q15M PRN PO DECREASED GLUCOSE; Start 01/13/17 at 08:30 Glucose (Glutose) 22.5 gm Q15M PRN PO DECREASED GLUCOSE; Start 01/13/17 at 08: 30 Dextrose (D50w Syringe) 25 ml Q15M PRN IV DECREASED GLUCOSE; Start 01/13/17 at 08:30 Dextrose (D50w Syringe) 50 ml Q15M PRN IV DECREASED GLUCOSE; Start 01/13/17 at 08:30 Glucagon (Glucagen) 1 mg Q15M PRN IM DECREASED GLUCOSE; Start 01/13/17 at 08:30 Glucose (Glutose) 15 gm Q15M PRN BUCCAL DECREASED GLUCOSE; Start 01/13/17 at 08 :30 Hydromorphone HCl (Dilaudid) 1 mg Q2H PRN IV PAIN LEVEL 6-10 Last administered on 01/17/17 14:58; Admin Dose 1 MG; Start 01/13/17 at 19:30 Diphenhydramine HCl (Benadryl) 25 mg Q6H PRN IV ITCHING; Start 01/13/17 at 19: 30 Ondansetron HCl (Zofran Inj) 4 mg Q6H PRN IV NAUSEA AND/OR VOMITING; Start 01/13/17 at 19:30 Famotidine 20 mg 20 mg Q12 IV Last administered on 01/17/17 08:16; Admin Dose 20 MG; Start 01/13/17 at 21:00 Potassium Chloride 20 meq/ Lactated Ringer's 1,010 ml @ 150 mls/hr Q6H44M IV Last administered on 01/17/17 10:20; Admin Dose 150 MLS/HR; Start 01/13/17 at 19:25 Cefazolin Sodium 50 ml @ 100 mls/hr Q8H IVPB Last administered on 01/17/17 11 :39; Admin Dose 100 MLS/HR; Start 01/14/17 at 03:00 Metronidazole (Flagyl 500 Mg (Pmx)) 100 ml @ 100 mls/hr Q8H IVPB Last administered on 01/17/17 08:15; Admin Dose 100 MLS/HR; Start 01/13/17 at 23:47 Diagnostic Test (Pha) (Accu-Chek) 1 ea Q4 XX Last administered on 01/16/17 17: 01; Admin Dose 1 EA; Start 01/15/17 at 09:00 Insulin Aspart (Adult SC Insulin - Mild Algorithm)... Q4 SC ; Start 01/15/17 at 09:00 Acetaminophen (Ofirmev 1000mg/ 100ml Iv) 100 ml @ 400 mls/hr Q6H PRN IVPB fever Last administered on 01/16/17 14:21; Admin Dose 400 MLS/HR; Start at 23:00 Enoxaparin Sodium (Lovenox) 30 mg DAILY SC Last administered on 01/17/17 08:18 ; Admin Dose 30 MG; Start 01/16/17 at 10:00 Phenol (Chloraseptic Throat [place]) 2 spray Q2H PRN MT SORE THROAT Last administered on 01/16/17 14:07; Admin Dose 2 SPRAY; Start 01/16/17 at 13:30 Pantoprazole (Protonix Iv) 40 mg DAILY@06 IV Last administered on 01/17/17 08: 27; Admin Dose 40 MG; Start 01/17/17 at 08:00 JEFF PALOMINO MD Jan 17, 2017 15:27
[2017-01-17 20:26] VITALS: BP 133/62; RESP 18
[2017-01-17] MEDS: ACETAMINOPHEN 1000MG/100ML IV 100 ML IVPB PRN (21:36)
[2017-01-18] MEDS: Insulin NOVOLOG SS MILD Algorithm (NPO/TPN/ENTERAL FEEDS) SC SCH ×6 (01:00→21:00)
[2017-01-18] MEDS: ACCU-CHEK XX SCH ×6 (01:47→21:41)
[2017-01-18] MEDS: POTASSIUM CHLORIDE 20 MEQ in LACTATED RINGER'S 1,000 ML IV SCH ×4 (01:47→17:47)
[2017-01-18] MEDS: HYDROmorphONE 1 MG/ML SYG IV PRN ×7 (01:50→20:04)
[2017-01-18 02:47] VITALS: BP 124/59; RESP 19
[2017-01-18] MEDS: CEFAZOLIN 1 GM/50 ML (PMX) 50 ML IVPB SCH ×3 (03:53→18:43)
[2017-01-18 05:11] LABS: BASOPHILS % 0.6 % (0.0-2.0); EOSINOPHILS # 0.2 10^3/ul (0.0-0.5); HEMATOCRIT 25.1 % (37.0-47.0); HEMOGLOBIN 8.4 g/dl (12.0-16.0); LYMPHOCYTES # 1.1 10^3/ul (0.8-2.9); LYMPHOCYTES % 15.5 % (15.0-51.0); MEAN CORPUSCULAR HEMOGLOBIN 27.9 pg (29.0-33.0); MEAN CORPUSCULAR HGB CONC 33.5 g/dl (32.0-37.0); MEAN CORPUSCULAR VOLUME 83.4 fl (82.0-101.0); MEAN PLATELET VOLUME 9.8 fl (7.4-10.4); MONOCYTE # 0.6 10^3/ul (0.3-0.9); MONOCYTES % 8.9 % (0.0-11.0); NEUTROPHIL # 4.8 10^3/ul (1.6-7.5); NEUTROPHILS % 70.4 % (39.0-77.0); PLATELET COUNT 241 10^3/UL (140-415); RED BLOOD COUNT 3.01 10^6/ul (4.20-5.40); RED CELL DISTRIBUTION WIDTH 13.3 % (11.5-14.5); WHITE BLOOD COUNT 6.8 10^3/ul (4.8-10.8)
[2017-01-18 05:19] LABS: CALCIUM 8.3 mg/dl (8.4-10.2); CREATININE 0.53 mg/dl (0.44-1.00); POTASSIUM 3.8 mmol/L (3.5-5.1)
[2017-01-18] MEDS: PANTOPRAZOLE 40 MG INJ IV SCH (05:49)
[2017-01-18 08:01] VITALS: BP 123/58; RESP 19
[2017-01-18] MEDS: metroNIDAZOLE 500 MG/NS (PMX) 100 ML IVPB SCH ×3 (08:20→23:23)
[2017-01-18] MEDS: FAMOTIDINE 20 MG INJ IV SCH ×2 (08:20→21:37)
[2017-01-18] MEDS: ENOXAPARIN 30 MG/0.3 ML SYG SC SCH (08:31)
--- NOTE | 2017-01-18 14:15 | PN ---
Date/Time of Note Date/Time of Note DATE: 01/18/17 TIME: 14:11 Assessment/Plan VTE Prophylaxis VTE Prophylaxis Intervention: SCD's Lines/Catheters IV Catheter Type (from Nrs): PORTACATH Urinary Cath still in place: Yes Reason Cath still needed: urinary retention Assessment/Plan Chief Complaint/Hosp Course Patient has abdominal pain requiring IV Dilaudid, stated improvement in right neck pain, active bowel sounds, positive flatus. Assessment/Plan - Recurrent/persistent ovarian cancer, status post secondary cytoreduction surgery. Continue IV fluids. 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 Pedroza. - DM with hemoglobin A1c 6.3. Continue NovoLog per mild algorithm sliding scale. Further recommendations based on clinical course. Plan of care of care discussed with Dr. Phelps Problems: Exam/Review of Systems Vital Signs Vitals Vital Signs Date Time Temp Pulse Resp B/P Pulse Ox O2 Delivery O2 Flow Rate FiO2 01/18/17 08:15 Nasal Cannula 2.0 01/18/17 08:01 98.2 82 19 123/58 98 01/18/17 03:54 28 Intake and Output 01/17/17 01/17/17 01/18/17 15:00 23:00 07:00 Intake Total 610 ml 1100 ml 1600 ml Output Total 1845 ml 1920 ml Balance 610 ml -745 ml -320 ml Exam Constitutional: alert Head: normocephalic Respiratory: normal air movement Cardiovascular: nl pulses Gastrointestinal: non-tender, other (s/p postsurgery), soft Genitourinary - Female: other ([place] catheter) Extremities: normal pulses Results Result Diagram: 01/18/17 0425 01/18/17 0425 Results 24 hrs Laboratory Tests Test 01/17/17 17:21 01/17/17 21:20 01/18/17 01:45 01/18/17 04:25 Bedside Glucose 97 93 92 White Blood Count 6.8 # Red Blood Count 3.01 L Hemoglobin 8.4 L Hematocrit 25.1 L Mean Corpuscular Volume 83.4 Mean Corpuscular Hemoglobin 27.9 L Mean Corpuscular Hemoglobin Concent 33.5 Red Cell Distribution Width 13.3 Platelet Count 241 Mean Platelet Volume 9.8 Neutrophils % 70.4 Lymphocytes % 15.5 Monocytes % 8.9 Eosinophils % 3.0 Basophils % 0.6 Nucleated Red Blood Cells % 0.0 Neutrophils # 4.8 Lymphocytes # 1.1 Monocytes # 0.6 Eosinophils # 0.2 Basophils # 0.0 Nucleated Red Blood Cells # 0.0 Sodium Level 137 Potassium Level 3.8 Chloride Level 106 Carbon Dioxide Level 24 Anion Gap 11 Blood Urea Nitrogen 9 Creatinine 0.53 Glucose Level 83 Calcium Level 8.3 L Test 01/18/17 05:43 01/18/17 07:05 01/18/17 08:27 01/18/17 12:16 Bedside Glucose 88 89 85 Lab Scanned Report REFERENCE LAB Medications Medications Current Medications Miscellaneous Information 1 ea NOTE XX ; Start 01/13/17 at 08:30 Glucose (Glutose) 15 gm Q15M PRN PO DECREASED GLUCOSE; Start 01/13/17 at 08:30 Glucose (Glutose) 22.5 gm Q15M PRN PO DECREASED GLUCOSE; Start 01/13/17 at 08: 30 Dextrose (D50w Syringe) 25 ml Q15M PRN IV DECREASED GLUCOSE; Start 01/13/17 at 08:30 Dextrose (D50w Syringe) 50 ml Q15M PRN IV DECREASED GLUCOSE; Start 01/13/17 at 08:30 Glucagon (Glucagen) 1 mg Q15M PRN IM DECREASED GLUCOSE; Start 01/13/17 at 08:30 Glucose (Glutose) 15 gm Q15M PRN BUCCAL DECREASED GLUCOSE; Start 01/13/17 at 08 :30 Hydromorphone HCl (Dilaudid) 1 mg Q2H PRN IV PAIN LEVEL 6-10 Last administered on 01/18/17 12:16; Admin Dose 1 MG; Start 01/13/17 at 19:30 Diphenhydramine HCl (Benadryl) 25 mg Q6H PRN IV ITCHING; Start 01/13/17 at 19: 30 Ondansetron HCl (Zofran Inj) 4 mg Q6H PRN IV NAUSEA AND/OR VOMITING; Start 01/13/17 at 19:30 Famotidine 20 mg 20 mg Q12 IV Last administered on 01/18/17 08:20; Admin Dose 20 MG; Start 01/13/17 at 21:00 Potassium Chloride 20 meq/ Lactated Ringer's 1,010 ml @ 150 mls/hr Q6H44M IV Last administered on 01/18/17 08:20; Admin Dose 150 MLS/HR; Start 01/13/17 at 19:25 Cefazolin Sodium 50 ml @ 100 mls/hr Q8H IVPB Last administered on 01/18/17 10 :36; Admin Dose 100 MLS/HR; Start 01/14/17 at 03:00 Metronidazole (Flagyl 500 Mg (Pmx)) 100 ml @ 100 mls/hr Q8H IVPB Last administered on 01/18/17 08:20; Admin Dose 100 MLS/HR; Start 01/13/17 at 23:47 Diagnostic Test (Pha) (Accu-Chek) 1 ea Q4 XX Last administered on 01/18/17 05: 43; Admin Dose 1 EA; Start 01/15/17 at 09:00 Insulin Aspart (Adult SC Insulin - Mild Algorithm)... Q4 SC ; Start 01/15/17 at 09:00 Acetaminophen (Ofirmev 1000mg/ 100ml Iv) 100 ml @ 400 mls/hr Q6H PRN IVPB fever Last administered on 01/17/17 21:36; Admin Dose 400 MLS/HR; Start at 23:00 Enoxaparin Sodium (Lovenox) 30 mg DAILY SC Last administered on 01/18/17 08:31 ; Admin Dose 30 MG; Start 01/16/17 at 10:00 Phenol (Chloraseptic Throat [place]) 2 spray Q2H PRN MT SORE THROAT Last administered on 01/16/17 14:07; Admin Dose 2 SPRAY; Start 01/16/17 at 13:30 MATHIEU WALSH Jan 18, 2017 14:15
--- NOTE | 2017-01-18 16:41 | PN ---
Date/Time of Note Date/Time of Note DATE: 01/18/17 TIME: 16:34 Assessment/Plan VTE Prophylaxis VTE Prophylaxis Intervention: LMWH Lines/Catheters IV [facility] Type (from [facility] PORTACATH Urinary Cath still in place: Yes Reason Cath still needed: other (indicate) (recent surgery.) Assessment/Plan Chief Complaint/Hosp Course 61 yo woman known to me. She has known ovarian cancer and Oct 4 had another surgery. She had a second look earlier this year and was going to get adjuvant chemotherapy but she progressed quickly and it was not started. 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 She is just starting oral intake. I spoke to pathologist and asked a BRCA study to be sent on the tumor tissue. This may be helpful in choosing her future chemotherapy regimen. For now continue current post op care and anticipate starting chemotherapy when she is ambulatory. Problems: Subjective 24 Hr Interval Summary Free Text/Dictation Pt is recovering from cytoreductive surgery. She is still only having small amount of oral fluids but is more comfortable now that the NG tube is removed. Exam/Review of Systems Vital Signs Vitals Vital Signs Date Time Temp Pulse Resp B/P Pulse Ox O2 Delivery O2 Flow Rate FiO2 01/18/17 08:15 Nasal Cannula 2.0 01/18/17 08:01 98.2 82 19 123/58 98 01/18/17 03:54 28 Intake and Output 01/17/17 01/17/17 01/18/17 15:00 23:00 07:00 Intake Total 610 ml 1100 ml 1600 ml Output Total 1845 ml 1920 ml Balance 610 ml -745 ml -320 ml Exam Constitutional: alert, oriented Head: normocephalic Eyes: nl conjunctiva, other (pallor) ENMT: nl external ears & nose Neck: supple Respiratory: clear to auscultation Cardiovascular: regular rate and rhythm Gastrointestinal: other (s/p surgery. quiet bowel sounds.), soft Results Result Diagram: 01/18/175 01/18/17424 Results 24 hrs Laboratory Tests Test 01/17/17 17:21 01/17/17 21:20 01/18/17 01:45 01/18/17 04:25 Bedside Glucose 97 93 92 White Blood Count 6.8 # Red Blood Count 3.01 L Hemoglobin 8.4 L Hematocrit 25.1 L Mean Corpuscular Volume 83.4 Mean Corpuscular Hemoglobin 27.9 L Mean Corpuscular Hemoglobin Concent 33.5 Red Cell Distribution Width 13.3 Platelet Count 241 Mean Platelet Volume 9.8 Neutrophils % 70.4 Lymphocytes % 15.5 Monocytes % 8.9 Eosinophils % 3.0 Basophils % 0.6 Nucleated Red Blood Cells % 0.0 Neutrophils # 4.8 Lymphocytes # 1.1 Monocytes # 0.6 Eosinophils # 0.2 Basophils # 0.0 Nucleated Red Blood Cells # 0.0 Sodium Level 137 Potassium Level 3.8 Chloride Level 106 Carbon Dioxide Level 24 Anion Gap 11 Blood Urea Nitrogen 9 Creatinine 0.53 Glucose Level 83 Calcium Level 8.3 L Test 01/18/17 05:43 01/18/17 07:05 01/18/17 08:27 01/18/17 12:16 Bedside Glucose 88 89 85 Lab Scanned Report REFERENCE LAB Medications Medications Current Medications Miscellaneous Information 1 ea NOTE XX ; Start 01/13/17 at 08:30 Glucose (Glutose) 15 gm Q15M PRN PO DECREASED GLUCOSE; Start 01/13/17 at 08:30 Glucose (Glutose) 22.5 gm Q15M PRN PO DECREASED GLUCOSE; Start 01/13/17 at 08: 30 Dextrose (D50w Syringe) 25 ml Q15M PRN IV DECREASED GLUCOSE; Start 01/13/17 at 08:30 Dextrose (D50w Syringe) 50 ml Q15M PRN IV DECREASED GLUCOSE; Start 01/13/17 at 08:30 Glucagon (Glucagen) 1 mg Q15M PRN IM DECREASED GLUCOSE; Start 01/13/17 at 08:30 Glucose (Glutose) 15 gm Q15M PRN BUCCAL DECREASED GLUCOSE; Start 01/13/17 at 08 :30 Hydromorphone HCl (Dilaudid) 1 mg Q2H PRN IV PAIN LEVEL 6-10 Last administered on 01/18/17 14:34; Admin Dose 1 MG; Start 01/13/17 at 19:30 Diphenhydramine HCl (Benadryl) 25 mg Q6H PRN IV ITCHING; Start 01/13/17 at 19: 30 Ondansetron HCl (Zofran Inj) 4 mg Q6H PRN IV NAUSEA AND/OR VOMITING; Start 01/13/17 at 19:30 Famotidine 20 mg 20 mg Q12 IV Last administered on 01/18/17 08:20; Admin Dose 20 MG; Start 01/13/17 at 21:00 Potassium Chloride 20 meq/ Lactated Ringer's 1,010 ml @ 150 mls/hr Q6H44M IV Last administered on 01/18/17 08:20; Admin Dose 150 MLS/HR; Start 01/13/17 at 19:25 Cefazolin Sodium 50 ml @ 100 mls/hr Q8H IVPB Last administered on 01/18/17 10 :36; Admin Dose 100 MLS/HR; Start 01/14/17 at 03:00 Metronidazole (Flagyl 500 Mg (Pmx)) 100 ml @ 100 mls/hr Q8H IVPB Last administered on 01/18/17 15:19; Admin Dose 100 MLS/HR; Start 01/13/17 at 23:47 Diagnostic Test (Pha) (Accu-Chek) 1 ea Q4 XX Last administered on 01/18/17 05: 43; Admin Dose 1 EA; Start 01/15/17 at 09:00 Insulin Aspart (Adult SC Insulin - Mild Algorithm)... Q4 SC ; Start 01/15/17 at 09:00 Acetaminophen (Ofirmev 1000mg/ 100ml Iv) 100 ml @ 400 mls/hr Q6H PRN IVPB fever Last administered on 01/17/17 21:36; Admin Dose 400 MLS/HR; Start at 23:00 Enoxaparin Sodium (Lovenox) 30 mg DAILY SC Last administered on 01/18/17 08:31 ; Admin Dose 30 MG; Start 01/16/17 at 10:00 Phenol (Chloraseptic Throat [place]) 2 spray Q2H PRN MT SORE THROAT Last administered on 01/16/17 14:07; Admin Dose 2 SPRAY; Start 01/16/17 at 13:30 JANUARY SHARMA MD Jan 18, 2017 16:40
--- NOTE | 2017-01-18 17:26 | OPR ---
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 Hayes Cupola Man: Dr. Michelle Anesthesia: General Indications for surgery: The patient is a 61- year old female with recurrent/persistent ovarian cancer after a significant enough disease-free interval and negative reassessment laparotomy for which the insurance company refused maintenance therapy and evidence of recurrence of disease on the basis of elevated markers, radiographic findings, and some symptoms for whom a secondary cytoreduction was undertaken after addressing all options with risks and benefits. Name: Griselda Guardado Findings and Summary After opening and exploration we noted adhesions and absence ascites and noted upper abdominal disease involving possible celiac nodes and the pelvic disease was limited to the retroperitoneum and possibly appendix. The retroperitoneal nodes were removed selectively if suspicious or enlarged and firm but of note on the right positive silvio tissue and desmoplastic reaction resulted in a ureterotomy that was unavoidable and repaired and stented. At the completion of the procedure the patient was rendered visibly free of residual disease although disease distribution and desmoplastic reaction would suggest residual disease that was sub-millimeter. Procedure: After being prepped and draped in the usual manner a midline skin incision was made of appropriate length. The electrocautery was then used to dissect thru the adipose tissue to the level of the fascia. The fascia was elevated and entered with a scalpel and traction/counter-traction, and upon entering the peritoneal cavity no ascetic fluid was observed and the opening was extended with the scalpel and Ligasure. At this time adhesions of intestine to the anterior abdominal wall were lysed with great care and any sero-muscular defects encountered were repaired with interrupted 3-0 Silk suture. Additional enterolysis was accomplished throughout the abdomen and in the process exploration was accomplished an as we searched the abdominal and pelvic contents we found that the left upper quadrant metastatic disease was absent other than possibly solitary celiac disease. The right upper quadrant was free of metastatic disease. Exploration of the central abdomen revealed approximately minimal possible implants involving the mesentery, intestinal, and gutter regions which were biopsied and the adjacent area ablated with the argon beam courtesy bus driver at appropriate wattage. The pelvis was noted to be have considerable retroperitoneal silvio disease. The largest metastatic disease was 1-1.5 cm in Name: [facility] dimension and involved the retroperitoneal nodes. We then placed a aortic Bellfower retractor. Additional enterolysis was completed and per the PET/CT scan the right retroperitoneum was opened with sharp dissection and the vasculature identified with extensive scar tissue and metastatic disease densely adherent to the sidewall and vasculature and adjacent ureter. The retroperitoneum was further opened with sharp dissection and a right-angle clamp and peanut as well as digitally and due to desmoplastic reaction and the silvio tissue being densely adherent to ureter during the process of the dissection a small ureterotomy was inevitable. The silvio tissue removed and possible residual disease removed with the CUSA and ablated with the argon beam courtesy bus driver at appropriate low wattage. The retroperitoneum was further opened and explored with sharp dissection and a right-angle clamp and peanut as well as digitally and any small area of nodularity was removed adjacent to the vasculature and psoas muscle. Subsequently, the left retroperitoneum was opened laterally to the vasculature with sharp dissection and extended with a right-angle clamp and electrocautery and the ureter identified, after which the ureter was dissected with a right-angle clamp and peanut as well as digitally due to dense scar tissue and some stricture distally. The retroperitoneum was thoroughly palpated and firm silvio tissue with the most suspicious being obturator was dissected with sharp dissection and the right-angle clamp and peanut as well as digitally and any silvio tissue of concern was removed with the ureter observed and lateralized without incident. Additional enterolysis was accomplished with biopsies and the a palpable small celiac note was removed with sharp dissection and adjacent tissue addressed with the CUSA. The small bowel and mesentery were thoroughly evaluated and mm size implants biopsied with adjacent tissue ablated with the argon beam courtesy bus driver at appropriate wattage or aspirated with a CUSA. Subsequently, as cytoreduction was completed because the appendix was previously densely adherent to the sidewall and adjacent to the aforementioned metastatic disease and ureter, an Name: [facility] appendectomy was completed. Initially the base of the appendix was dissected away from the cecum with a tonsil. Subsequently, the appendix was from the cecum with and endo-JANELLE stapler. We then divided the appendiceal mesentery with a Gyrus bipolar cutting forceps with additional 3-0 Silk suture used as needed. Subsequently, the aforementioned right ureter that was adherent to metastatic disease was addressed. The aforementioned ureter was further freed distally and proximally from the compromised areas with adhesions with sharp dissection and a peanut and was stented with a 24cm 6Fr double-J stent. The ureteral repair was completed with interrupted 4-0 and 5-0 interrupted Vicryl suture. The stent location was confirmed in the bladder with a cystoscopy without incident. At this time, after all packing was removed , the abdomen thoroughly irrigated, hemostasis confirmed, and a pelvic Nik drain placed. The fascial edges were exposed by resecting the ventral hernia sac with electrocautery. The hernia sac was sent to pathology. A figure of eight suture was placed at the caudal apex of the incision with 1-Prolene and used for exposure by elevating with a Pean clamp. Interrupted 1-Prolene suture was used from the rostral apex and repeated to the supra-pubic area predominantly interrupted. Sepra film was used. The final suture was tied appropriately, after which the figure of eight was tied. The subcutaneous tissue was irrigated and approximated with interrupted 3-0 Vicryl suture the skin was closed with skin clips. The sponge, needle, and instrument were correct two times. The estimated blood loss was 300 cc. The patient tolerated the procedure well and left the OR in good condition. It should be noted that all visible disease was resected, although disease distribution and desmoplastic reaction would suggest residual disease that was millimeter. Jeff Hayes M.D. Preoperative Diagnosis as above Postoperative Diagnosis as above Operation/Procedure Performed as above Surgeon see signature line Cupola Man as above Anesthesia Type: general Estimated Blood Loss: 250 - 300 ml's Transfusion none Specimen multiple Grafts/Implants none Tubes/Drains as above Complications none Procedure Description as above JEFF HAYES MD Jan 18, 2017 17:26
[2017-01-18 19:20] VITALS: BP 139/64; RESP 20
[2017-01-18] MEDS: ONDANSETRON 4 MG INJ IV PRN (20:03)
[2017-01-19] MEDS: HYDROmorphONE 1 MG/ML SYG IV PRN ×6 (00:42→23:47)
[2017-01-19] MEDS: Insulin NOVOLOG SS MILD Algorithm (NPO/TPN/ENTERAL FEEDS) SC SCH (01:00)
[2017-01-19] MEDS: ACCU-CHEK XX SCH ×3 (01:08→11:23)
[2017-01-19] MEDS: CEFAZOLIN 1 GM/50 ML (PMX) 50 ML IVPB SCH ×2 (02:02→11:22)
[2017-01-19] MEDS: POTASSIUM CHLORIDE 20 MEQ in LACTATED RINGER'S 1,000 ML IV SCH ×4 (02:02→23:52)
[2017-01-19 02:09] VITALS: BP 108/53; PULSE 85; RESP 20
[2017-01-19] MEDS: INSULIN ASPART [NOVOLOG] 3 ML PEN SC SCH ×5 (05:32→21:00)
[2017-01-19 05:46] LABS: BASOPHIL # 0.1 10^3/ul (0.0-0.1); BASOPHILS % 0.7 % (0.0-2.0); EOSINOPHILS # 0.2 10^3/ul (0.0-0.5); EOSINOPHILS % 2.7 % (0.0-7.0); HEMATOCRIT 26.5 % (37.0-47.0); HEMOGLOBIN 8.9 g/dl (12.0-16.0); LYMPHOCYTES # 1.3 10^3/ul (0.8-2.9); LYMPHOCYTES % 17.3 % (15.0-51.0); MEAN CORPUSCULAR HEMOGLOBIN 27.7 pg (29.0-33.0); MEAN CORPUSCULAR HGB CONC 33.6 g/dl (32.0-37.0); MEAN CORPUSCULAR VOLUME 82.6 fl (82.0-101.0); MEAN PLATELET VOLUME 9.7 fl (7.4-10.4); MONOCYTE # 0.6 10^3/ul (0.3-0.9); NEUTROPHIL # 5.1 10^3/ul (1.6-7.5); NEUTROPHILS % 69.3 % (39.0-77.0); PLATELET COUNT 282 10^3/UL (140-415); RED BLOOD COUNT 3.21 10^6/ul (4.20-5.40); RED CELL DISTRIBUTION WIDTH 13.2 % (11.5-14.5); WHITE BLOOD COUNT 7.3 10^3/ul (4.8-10.8)
[2017-01-19 06:34] LABS: CALCIUM 8.6 mg/dl (8.4-10.2); CREATININE 0.55 mg/dl (0.44-1.00); POTASSIUM 4.2 mmol/L (3.5-5.1)
[2017-01-19] MEDS: metroNIDAZOLE 500 MG/NS (PMX) 100 ML IVPB SCH ×3 (07:35→23:48)
[2017-01-19 07:39] VITALS: BP 127/59; RESP 18
[2017-01-19] MEDS: FAMOTIDINE 20 MG INJ IV SCH ×2 (09:13→21:15)
[2017-01-19] MEDS: ENOXAPARIN 30 MG/0.3 ML SYG SC SCH (09:21)
--- NOTE | 2017-01-19 14:42 | PN ---
Date/Time of Note Date/Time of Note DATE: 01/19/17 TIME: 14:40 Assessment/Plan VTE Prophylaxis VTE Prophylaxis Intervention: LMWH Lines/Catheters IV C[facility] Type (from [facility] PORTACATH Urinary Cath still in place: Yes Reason Cath still needed: other (indicate) (surgery) Assessment/Plan Chief Complaint/Hosp Course 61 yo woman known to me. She has known ovarian cancer and Oct 4 had another surgery. She had a second look earlier this year and was going to get adjuvant chemotherapy but she progressed quickly and it was not started. 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 She is just starting oral intake. I spoke to pathologist and asked a BRCA study to be sent. This may be helpful in choosing her future chemotherapy regimen. For now continue current post op care and anticipate starting chemotherapy when she is ambulatory. Problems: Subjective 24 Hr Interval Summary Free Text/Dictation Pt stable but ESBL has been found and she is now on isolation Exam/Review of Systems Vital Signs Vitals Vital Signs Date Time Temp Pulse Resp B/P Pulse Ox O2 Delivery O2 Flow Rate FiO2 01/19/17 09:00 Nasal Cannula 2.0 01/19/17 07:39 98.0 78 18 127/59 97 01/18/17 03:54 28 Intake and Output 01/18/17 01/18/17 01/19/17 15:00 23:00 07:00 Intake Total 620 ml 2120 ml 1610 ml Output Total 820 ml 1420 ml Balance 620 ml 1300 ml 190 ml Exam Constitutional: alert, oriented Head: normocephalic Eyes: nl conjunctiva, other (pallor) Respiratory: clear to auscultation Cardiovascular: regular rate and rhythm Gastrointestinal: non-tender, other (s/p laparotomy), soft Results Result Diagram: 01/19/17 0500 01/19/17 0500 Results 24 hrs Laboratory Tests Test 01/18/17 16:41 01/18/17 21:40 01/19/17 01:07 01/19/17 05:00 Bedside Glucose 75 84 80 White Blood Count 7.3 Red Blood Count 3.21 L Hemoglobin 8.9 L Hematocrit 26.5 L Mean Corpuscular Volume 82.6 Mean Corpuscular Hemoglobin 27.7 L Mean Corpuscular Hemoglobin Concent 33.6 Red Cell Distribution Width 13.2 Platelet Count 282 Mean Platelet Volume 9.7 Neutrophils % 69.3 Lymphocytes % 17.3 Monocytes % 8.0 Eosinophils % 2.7 Basophils % 0.7 Nucleated Red Blood Cells % 0.0 Neutrophils # 5.1 Lymphocytes # 1.3 Monocytes # 0.6 Eosinophils # 0.2 Basophils # 0.1 Nucleated Red Blood Cells # 0.0 Sodium Level 136 Potassium Level 4.2 Chloride Level 105 Carbon Dioxide Level 21 Anion Gap 14 Blood Urea Nitrogen 8 Creatinine 0.55 Glucose Level 75 Calcium Level 8.6 Test 01/19/17 05:29 01/19/17 11:21 01/19/17 12:43 Bedside Glucose 83 76 79 Medications Medications Current Medications Miscellaneous Information 1 ea NOTE XX ; Start 01/13/17 at 08:30 Glucose (Glutose) 15 gm Q15M PRN PO DECREASED GLUCOSE; Start 01/13/17 at 08:30 Glucose (Glutose) 22.5 gm Q15M PRN PO DECREASED GLUCOSE; Start 01/13/17 at 08: 30 Dextrose (D50w Syringe) 25 ml Q15M PRN IV DECREASED GLUCOSE; Start 01/13/17 at 08:30 Dextrose (D50w Syringe) 50 ml Q15M PRN IV DECREASED GLUCOSE; Start 01/13/17 at 08:30 Glucagon (Glucagen) 1 mg Q15M PRN IM DECREASED GLUCOSE; Start 01/13/17 at 08:30 Glucose (Glutose) 15 gm Q15M PRN BUCCAL DECREASED GLUCOSE; Start 01/13/17 at 08 :30 Hydromorphone HCl (Dilaudid) 1 mg Q2H PRN IV PAIN LEVEL 6-10 Last administered on 01/19/17 13:58; Admin Dose 1 MG; Start 01/13/17 at 19:30 Diphenhydramine HCl (Benadryl) 25 mg Q6H PRN IV ITCHING; Start 01/13/17 at 19: 30 Ondansetron HCl (Zofran Inj) 4 mg Q6H PRN IV NAUSEA AND/OR VOMITING Last administered on 01/18/17 20:03; Admin Dose 4 MG; Start 01/13/17 at 19:30 Famotidine 20 mg 20 mg Q12 IV Last administered on 01/19/17 09:13; Admin Dose 20 MG; Start 01/13/17 at 21:00 Potassium Chloride 20 meq/ Lactated Ringer's 1,010 ml @ 150 mls/hr Q6H44M IV Last administered on 01/19/17 10:51; Admin Dose 150 MLS/HR; Start 01/13/17 at 19:25 Cefazolin Sodium 50 ml @ 100 mls/hr Q8H IVPB Last administered on 01/19/17 11:22; Admin Dose 100 MLS/HR; Start 01/14/17 at 03:00 Metronidazole 100 ml @ 100 mls/hr Q8H IVPB Last administered on 01/19/17 07: 35; Admin Dose 100 MLS/HR; Start 01/13/17 at 23:47 Acetaminophen (Ofirmev 1000mg/ 100ml Iv) 100 ml @ 400 mls/hr Q6H PRN IVPB fever Last administered on 01/17/17 21:36; Admin Dose 400 MLS/HR; Start at 23:00 Enoxaparin Sodium (Lovenox) 30 mg DAILY SC Last administered on 01/19/17 09: 21; Admin Dose 30 MG; Start 01/16/17 at 10:00 Phenol (Chloraseptic Throat [place]) 2 spray Q2H PRN MT SORE THROAT Last administered on 01/16/17 14:07; Admin Dose 2 SPRAY; Start 01/16/17 at 13:30 Diagnostic Test (Pha) (Accu-Chek) 1 02 XX ; Start 01/20/17 at 02:00 JANUARY SHARMA MD Jan 19, 2017 14:42
[2017-01-19 14:44] VITALS: BP 130/59; RESP 18
--- NOTE | 2017-01-19 17:12 | PN ---
Date/Time of Note Date/Time of Note DATE: 01/19/17 TIME: 17:09 Assessment/Plan VTE Prophylaxis VTE Prophylaxis Intervention: SCD's Lines/Catheters IV Catheter Type (from Nrs): PORTACATH Urinary Cath still in place: Yes Reason Cath still needed: urinary retention Assessment/Plan Chief Complaint/Hosp Course Patient is started on clear liquid diet, tolerates it well without nausea and vomiting. Assessment/Plan - E coli ESBL urinary tract infection, start meropenem - Recurrent/persistent ovarian cancer, status post secondary cytoreduction surgery. Continue IV fluids. 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 Pedroza. - DM with hemoglobin A1c 6.3. Continue NovoLog per mild algorithm sliding scale. Further recommendations based on clinical course. Plan of care of care discussed with Dr. Phelps Problems: Exam/Review of Systems Vital Signs Vitals Vital Signs Date Time Temp Pulse Resp B/P Pulse Ox O2 Delivery O2 Flow Rate FiO2 01/19/17 14:44 98.1 74 18 130/59 98 01/19/17 09:02 2.0 01/19/17 09:00 Nasal Cannula 01/18/17 03:54 28 Intake and Output 01/18/17 01/18/17 01/19/17 15:00 23:00 07:00 Intake Total 620 ml 2120 ml 1610 ml Output Total 820 ml 1420 ml Balance 620 ml 1300 ml 190 ml Exam Constitutional: alert Head: normocephalic Respiratory: normal air movement Cardiovascular: nl pulses Gastrointestinal: non-tender, other (s/p postsurgery), soft Genitourinary - Female: other ([place] catheter) Extremities: normal pulses Results Result Diagram: 01/19/17 0500 01/19/17 0500 Results 24 hrs Laboratory Tests Test 01/18/17 21:40 01/19/17 01:07 01/19/17 05:00 01/19/17 05:29 Bedside Glucose 84 80 83 White Blood Count 7.3 Red Blood Count 3.21 L Hemoglobin 8.9 L Hematocrit 26.5 L Mean Corpuscular Volume 82.6 Mean Corpuscular Hemoglobin 27.7 L Mean Corpuscular Hemoglobin Concent 33.6 Red Cell Distribution Width 13.2 Platelet Count 282 Mean Platelet Volume 9.7 Neutrophils % 69.3 Lymphocytes % 17.3 Monocytes % 8.0 Eosinophils % 2.7 Basophils % 0.7 Nucleated Red Blood Cells % 0.0 Neutrophils # 5.1 Lymphocytes # 1.3 Monocytes # 0.6 Eosinophils # 0.2 Basophils # 0.1 Nucleated Red Blood Cells # 0.0 Sodium Level 136 Potassium Level 4.2 Chloride Level 105 Carbon Dioxide Level 21 Anion Gap 14 Blood Urea Nitrogen 8 Creatinine 0.55 Glucose Level 75 Calcium Level 8.6 Test 01/19/17 11:21 01/19/17 12:43 Bedside Glucose 76 79 Medications Medications Current Medications Miscellaneous Information 1 ea NOTE XX ; Start 01/13/17 at 08:30 Glucose (Glutose) 15 gm Q15M PRN PO DECREASED GLUCOSE; Start 01/13/17 at 08:30 Glucose (Glutose) 22.5 gm Q15M PRN PO DECREASED GLUCOSE; Start 01/13/17 at 08: 30 Dextrose (D50w Syringe) 25 ml Q15M PRN IV DECREASED GLUCOSE; Start 01/13/17 at 08:30 Dextrose (D50w Syringe) 50 ml Q15M PRN IV DECREASED GLUCOSE; Start 01/13/17 at 08:30 Glucagon (Glucagen) 1 mg Q15M PRN IM DECREASED GLUCOSE; Start 01/13/17 at 08:30 Glucose (Glutose) 15 gm Q15M PRN BUCCAL DECREASED GLUCOSE; Start 01/13/17 at 08 :30 Hydromorphone HCl (Dilaudid) 1 mg Q2H PRN IV PAIN LEVEL 6-10 Last administered on 01/19/17 13:58; Admin Dose 1 MG; Start 01/13/17 at 19:30 Diphenhydramine HCl (Benadryl) 25 mg Q6H PRN IV ITCHING; Start 01/13/17 at 19: 30 Ondansetron HCl (Zofran Inj) 4 mg Q6H PRN IV NAUSEA AND/OR VOMITING Last administered on 01/18/17 20:03; Admin Dose 4 MG; Start 01/13/17 at 19:30 Famotidine 20 mg 20 mg Q12 IV Last administered on 01/19/17 09:13; Admin Dose 20 MG; Start 01/13/17 at 21:00 Potassium Chloride 20 meq/ Lactated Ringer's 1,010 ml @ 150 mls/hr Q6H44M IV Last administered on 01/19/17 10:51; Admin Dose 150 MLS/HR; Start 01/13/17 at 19:25 Cefazolin Sodium 50 ml @ 100 mls/hr Q8H IVPB Last administered on 01/19/17 11:22; Admin Dose 100 MLS/HR; Start 01/14/17 at 03:00 Metronidazole 100 ml @ 100 mls/hr Q8H IVPB Last administered on 01/19/17 15: 08; Admin Dose 100 MLS/HR; Start 01/13/17 at 23:47 Acetaminophen (Ofirmev 1000mg/ 100ml Iv) 100 ml @ 400 mls/hr Q6H PRN IVPB fever Last administered on 01/17/17 21:36; Admin Dose 400 MLS/HR; Start at 23:00 Enoxaparin Sodium (Lovenox) 30 mg DAILY SC Last administered on 01/19/17 09: 21; Admin Dose 30 MG; Start 01/16/17 at 10:00 Phenol (Chloraseptic Throat [place]) 2 spray Q2H PRN MT SORE THROAT Last administered on 01/16/17 14:07; Admin Dose 2 SPRAY; Start 01/16/17 at 13:30 Diagnostic Test (Pha) (Accu-Chek) 1 02 XX ; Start 01/20/17 at 02:00 MATHIEU WALSH Jan 19, 2017 17:12
[2017-01-19] MEDS ORDERED: INSULIN ASPART [NOVOLOG] 3 ML PEN SC SCH (17:55)
[2017-01-19 19:10] VITALS: BP 125/62; RESP 19
[2017-01-19] MEDS: MEROPENEM 1 GM/50ML(PMX) 50 ML IVPB SCH (21:15)
[2017-01-19] MEDS: ONDANSETRON 4 MG INJ IV PRN (23:44)
[2017-01-20] MEDS: ACCU-CHEK XX SCH ×2 (01:23→21:25)
[2017-01-20 01:59] VITALS: BP 111/57; RESP 20
[2017-01-20] MEDS ORDERED: ACCU-CHEK XX SCH (02:00)
[2017-01-20 05:48] LABS: BASOPHIL # 0.1 10^3/ul (0.0-0.1); BASOPHILS % 0.7 % (0.0-2.0); EOSINOPHILS # 0.3 10^3/ul (0.0-0.5); EOSINOPHILS % 3.3 % (0.0-7.0); HEMATOCRIT 27.1 % (37.0-47.0); HEMOGLOBIN 9.3 g/dl (12.0-16.0); LYMPHOCYTES # 1.2 10^3/ul (0.8-2.9); LYMPHOCYTES % 15.5 % (15.0-51.0); MEAN CORPUSCULAR HEMOGLOBIN 28.3 pg (29.0-33.0); MEAN CORPUSCULAR HGB CONC 34.3 g/dl (32.0-37.0); MEAN CORPUSCULAR VOLUME 82.4 fl (82.0-101.0); MEAN PLATELET VOLUME 9.5 fl (7.4-10.4); MONOCYTE # 0.6 10^3/ul (0.3-0.9); MONOCYTES % 7.4 % (0.0-11.0); NEUTROPHIL # 5.3 10^3/ul (1.6-7.5); NEUTROPHILS % 71.1 % (39.0-77.0); PLATELET COUNT 337 10^3/UL (140-415); RED BLOOD COUNT 3.29 10^6/ul (4.20-5.40); RED CELL DISTRIBUTION WIDTH 13.2 % (11.5-14.5); WHITE BLOOD COUNT 7.5 10^3/ul (4.8-10.8)
[2017-01-20] MEDS: POTASSIUM CHLORIDE 20 MEQ in LACTATED RINGER'S 1,000 ML IV SCH ×3 (06:17→21:09)
[2017-01-20 06:28] LABS: CALCIUM 8.6 mg/dl (8.4-10.2); CREATININE 0.51 mg/dl (0.44-1.00); POTASSIUM 4.2 mmol/L (3.5-5.1)
[2017-01-20] MEDS: INSULIN ASPART [NOVOLOG] 3 ML PEN SC SCH ×4 (07:50→21:00)
[2017-01-20] MEDS: metroNIDAZOLE 500 MG/NS (PMX) 100 ML IVPB SCH ×3 (08:00→23:05)
[2017-01-20 08:10] VITALS: BP 126/62; RESP 20
--- NOTE | 2017-01-20 09:22 | PN ---
DATE: 01/20/2017 SUBJECTIVE: The patient is feeling well. She has mild abdominal pain, but this is well controlled. There is no nausea or vomiting. The patient does not complain of any fevers or chills. OBJECTIVE: GENERAL: The patient is a well-developed, well-nourished female in no acute distress. VITAL SIGNS: Temperature 97.6, pulse 72 per minute and regular, respirations 20, blood pressure 111 /57 and pulse oximetry is 98% on room air. SKIN: No ecchymosis, no petechiae or rashes. HEENT: No mucosal lesions. No scleral icterus. NECK: Supple, no jugular venous distention or thyroid enlargement. CHEST: Decreased breath sounds in both bases but no rhonchi, wheezes, rales or rubs. There is a Po rt-A-Cath on the right side. HEART: Regular sinus rhythm, no S3, S4 or murmurs. ABDOMEN: Mildly distended, but soft. There is a surgical incision from recent exploratory laparoto my, bowel sounds are decreased. EXTREMITIES: Good range of motion, no clubbing, edema or cyanosis. No palpable cords or Homans sig n. LABORATORY: White count today is 7500 with an absolute neutrophil count of 5300, hemoglobin 9.3, he matocrit 27.1 and platelet count 337,000. Sodium 135, potassium 4.2, creatinine 0.51, BUN is 7. ASSESSMENT: Recurrent ovarian carcinoma. DISCUSSION: The patient has demonstrated recurrent high grade serous carcinoma similar to the josette nt's original ovarian carcinoma. At this time, further studies including BRCA testing is being done in order to determine if the josefina ent may be a candidate for HARP inhibitor. The patient is actually less than 6 months since the completion of her original chemotherapy. The p atient is likely [place] resistant. Dictated By: DAVID MESA MD, SR/RADHA Conf#: [id number] DID#: [id number]
[2017-01-20] MEDS: FAMOTIDINE 20 MG INJ IV SCH ×2 (09:53→21:02)
[2017-01-20] MEDS: MEROPENEM 1 GM/50ML(PMX) 50 ML IVPB SCH ×2 (09:54→21:03)
[2017-01-20] MEDS: ENOXAPARIN 30 MG/0.3 ML SYG SC SCH (09:57)
[2017-01-20] MEDS: HYDROmorphONE 1 MG/ML SYG IV PRN ×4 (10:08→23:05)
--- NOTE | 2017-01-20 15:44 | PN ---
Date/Time of Note Date/Time of Note DATE: 01/20/17 TIME: 15:42 Assessment/Plan VTE Prophylaxis VTE Prophylaxis Intervention: SCD's Lines/Catheters IV Catheter Type (from Nrs): rosa cath Urinary Cath still in place: Yes Reason Cath still needed: urinary retention Assessment/Plan Chief Complaint/Hosp Course Pt complains of vaginal itching start Monistat,tolerates liquid diet well. Assessment/Plan - E coli ESBL urinary tract infection,continue meropenem - Recurrent/persistent ovarian cancer, status post secondary cytoreduction surgery. Continue IV fluids. 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 Pedroza. - DM with hemoglobin A1c 6.3. Continue NovoLog per mild algorithm sliding scale. Further recommendations based on clinical course. Plan of care of care discussed with Dr. Phelps Problems: Exam/Review of Systems Vital Signs Vitals Vital Signs Date Time Temp Pulse Resp B/P Pulse Ox O2 Delivery O2 Flow Rate FiO2 01/20/17 08:10 98.1 86 20 126/62 92 01/20/17 01:49 2.0 01/19/17 09:00 Nasal Cannula 01/18/17 03:54 28 Intake and Output 01/19/17 01/19/17 01/20/17 15:00 23:00 07:00 Intake Total 710 ml 1760 ml 2160 ml Output Total 2320 ml 2110 ml Balance 710 ml -560 ml 50 ml Exam Constitutional: alert Head: normocephalic Respiratory: normal air movement Cardiovascular: nl pulses Gastrointestinal: non-tender, other (s/p postsurgery), soft Genitourinary - Female: other (Preciado catheter) Extremities: normal pulses Results Result Diagram: 01/20/17 0458 01/20/17 0458 Results 24 hrs Laboratory Tests Test 01/19/17 17:30 01/19/17 21:19 01/20/17 04:58 01/20/17 08:12 Bedside Glucose 101 85 86 White Blood Count 7.5 Red Blood Count 3.29 L Hemoglobin 9.3 L Hematocrit 27.1 L Mean Corpuscular Volume 82.4 Mean Corpuscular Hemoglobin 28.3 L Mean Corpuscular Hemoglobin Concent 34.3 Red Cell Distribution Width 13.2 Platelet Count 337 Mean Platelet Volume 9.5 Neutrophils % 71.1 Lymphocytes % 15.5 Monocytes % 7.4 Eosinophils % 3.3 Basophils % 0.7 Nucleated Red Blood Cells % 0.0 Neutrophils # 5.3 Lymphocytes # 1.2 Monocytes # 0.6 Eosinophils # 0.3 Basophils # 0.1 Nucleated Red Blood Cells # 0.0 Sodium Level 135 Potassium Level 4.2 Chloride Level 104 Carbon Dioxide Level 22 Anion Gap 13 Blood Urea Nitrogen 7 Creatinine 0.51 Glucose Level 80 Calcium Level 8.6 Test 01/20/17 12:32 Bedside Glucose 90 Medications Medications Current Medications Miscellaneous Information 1 ea NOTE XX ; Start 01/13/17 at 08:30 Glucose (Glutose) 15 gm Q15M PRN PO DECREASED GLUCOSE; Start 01/13/17 at 08:30 Glucose (Glutose) 22.5 gm Q15M PRN PO DECREASED GLUCOSE; Start 01/13/17 at 08: 30 Dextrose (D50w Syringe) 25 ml Q15M PRN IV DECREASED GLUCOSE; Start 01/13/17 at 08:30 Dextrose (D50w Syringe) 50 ml Q15M PRN IV DECREASED GLUCOSE; Start 01/13/17 at 08:30 Glucagon (Glucagen) 1 mg Q15M PRN IM DECREASED GLUCOSE; Start 01/13/17 at 08:30 Glucose (Glutose) 15 gm Q15M PRN BUCCAL DECREASED GLUCOSE; Start 01/13/17 at 08 :30 Hydromorphone HCl (Dilaudid) 1 mg Q2H PRN IV PAIN LEVEL 6-10 Last administered on 01/20/17 13:51; Admin Dose 1 MG; Start 01/13/17 at 19:30 Diphenhydramine HCl (Benadryl) 25 mg Q6H PRN IV ITCHING; Start 01/13/17 at 19: 30 Ondansetron HCl (Zofran Inj) 4 mg Q6H PRN IV NAUSEA AND/OR VOMITING Last administered on 01/19/17 23:44; Admin Dose 4 MG; Start 01/13/17 at 19:30 Famotidine 20 mg 20 mg Q12 IV Last administered on 01/20/17 09:53; Admin Dose 20 MG; Start 01/13/17 at 21:00 Potassium Chloride 20 meq/ Lactated Ringer's 1,010 ml @ 150 mls/hr Q6H44M IV Last administered on 01/20/17 08:00; Admin Dose 150 MLS/HR; Start 01/13/17 at 19:25 Metronidazole 100 ml @ 100 mls/hr Q8H IVPB Last administered on 01/20/17 08: 00; Admin Dose 100 MLS/HR; Start 01/13/17 at 23:47 Acetaminophen (Ofirmev 1000mg/ 100ml Iv) 100 ml @ 400 mls/hr Q6H PRN IVPB fever Last administered on 01/17/17 21:36; Admin Dose 400 MLS/HR; Start at 23:00 Enoxaparin Sodium (Lovenox) 30 mg DAILY SC Last administered on 01/20/17 09: 57; Admin Dose 30 MG; Start 01/16/17 at 10:00 Phenol (Chloraseptic Throat [place]) 2 spray Q2H PRN MT SORE THROAT Last administered on 01/16/17 14:07; Admin Dose 2 SPRAY; Start 01/16/17 at 13:30 Diagnostic Test (Pha) 1 ea 1 ea 02 XX ; Start 01/20/17 at 02:00 Meropenem/Sodium Chloride (Merrem 1 Gm/50 ml (Pmx)) 50 ml @ 100 mls/hr Q12 IVPB Last administered on 01/20/17 09:54; Admin Dose 100 MLS/HR; Start 01/19 at 21:00 MATHIEU WALSH Jan 20, 2017 15:44
--- NOTE | 2017-01-20 17:58 | PN ---
Date/Time of Note Date/Time of Note DATE: 01/20/17 TIME: 17:54 Assessment/Plan VTE Prophylaxis VTE Prophylaxis Intervention: SCD's Lines/Catheters IV Catheter Type (from Nrs): rosa cath Urinary Cath still in place: Yes Reason Cath still needed: urinary retention, other (indicate) Assessment/Plan Chief Complaint/Hosp Course recurrent ovarian cancer Problems: Assessment/Plan A- improving P- adv diet and decrease IV and will d/c drain 1- 2 days biut must maintain Preciado Subjective 24 Hr Interval Summary Free Text/Dictation Tiera diet and OOB more. Exam/Review of Systems Vital Signs Vitals Vital Signs Date Time Temp Pulse Resp B/P Pulse Ox O2 Delivery O2 Flow Rate FiO2 01/20/17 08:10 98.1 86 20 126/62 92 01/20/17 01:49 2.0 01/19/17 09:00 Nasal Cannula 01/18/17 03:54 28 Intake and Output 01/19/17 01/19/17 01/20/17 15:00 23:00 07:00 Intake Total 710 ml 1760 ml 2160 ml Output Total 2320 ml 2110 ml Balance 710 ml -560 ml 50 ml Exam Resp- clear CVS- NSR Abd- Soft NT Ext - Nt Results Result Diagram: 01/20/17 0458 01/20/17 0458 Results 24 hrs Laboratory Tests Test 01/19/17 21:19 01/20/17 04:58 01/20/17 08:12 01/20/17 12:32 Bedside Glucose 85 86 90 White Blood Count 7.5 Red Blood Count 3.29 L Hemoglobin 9.3 L Hematocrit 27.1 L Mean Corpuscular Volume 82.4 Mean Corpuscular Hemoglobin 28.3 L Mean Corpuscular Hemoglobin Concent 34.3 Red Cell Distribution Width 13.2 Platelet Count 337 Mean Platelet Volume 9.5 Neutrophils % 71.1 Lymphocytes % 15.5 Monocytes % 7.4 Eosinophils % 3.3 Basophils % 0.7 Nucleated Red Blood Cells % 0.0 Neutrophils # 5.3 Lymphocytes # 1.2 Monocytes # 0.6 Eosinophils # 0.3 Basophils # 0.1 Nucleated Red Blood Cells # 0.0 Sodium Level 135 Potassium Level 4.2 Chloride Level 104 Carbon Dioxide Level 22 Anion Gap 13 Blood Urea Nitrogen 7 Creatinine 0.51 Glucose Level 80 Calcium Level 8.6 Test 01/20/17 17:44 Bedside Glucose 85 Medications Medications Current Medications Miscellaneous Information 1 ea NOTE XX ; Start 01/13/17 at 08:30 Glucose (Glutose) 15 gm Q15M PRN PO DECREASED GLUCOSE; Start 01/13/17 at 08:30 Glucose (Glutose) 22.5 gm Q15M PRN PO DECREASED GLUCOSE; Start 01/13/17 at 08: 30 Dextrose (D50w Syringe) 25 ml Q15M PRN IV DECREASED GLUCOSE; Start 01/13/17 at 08:30 Dextrose (D50w Syringe) 50 ml Q15M PRN IV DECREASED GLUCOSE; Start 01/13/17 at 08:30 Glucagon (Glucagen) 1 mg Q15M PRN IM DECREASED GLUCOSE; Start 01/13/17 at 08:30 Glucose (Glutose) 15 gm Q15M PRN BUCCAL DECREASED GLUCOSE; Start 01/13/17 at 08 :30 Hydromorphone HCl (Dilaudid) 1 mg Q2H PRN IV PAIN LEVEL 6-10 Last administered on 01/20/17 13:51; Admin Dose 1 MG; Start 01/13/17 at 19:30 Diphenhydramine HCl (Benadryl) 25 mg Q6H PRN IV ITCHING; Start 01/13/17 at 19: 30 Ondansetron HCl (Zofran Inj) 4 mg Q6H PRN IV NAUSEA AND/OR VOMITING Last administered on 01/19/17 23:44; Admin Dose 4 MG; Start 01/13/17 at 19:30 Famotidine 20 mg 20 mg Q12 IV Last administered on 01/20/17 09:53; Admin Dose 20 MG; Start 01/13/17 at 21:00 Potassium Chloride 20 meq/ Lactated Ringer's 1,010 ml @ 150 mls/hr Q6H44M IV Last administered on 01/20/17 08:00; Admin Dose 150 MLS/HR; Start 01/13/17 at 19:25 Metronidazole 100 ml @ 100 mls/hr Q8H IVPB Last administered on 01/20/17 16: 08; Admin Dose 100 MLS/HR; Start 01/13/17 at 23:47 Acetaminophen (Ofirmev 1000mg/ 100ml Iv) 100 ml @ 400 mls/hr Q6H PRN IVPB fever Last administered on 01/17/17 21:36; Admin Dose 400 MLS/HR; Start at 23:00 Enoxaparin Sodium (Lovenox) 30 mg DAILY SC Last administered on 01/20/17 09: 57; Admin Dose 30 MG; Start 01/16/17 at 10:00 Phenol (Chloraseptic Throat [place]) 2 spray Q2H PRN MT SORE THROAT Last administered on 01/16/17 14:07; Admin Dose 2 SPRAY; Start 01/16/17 at 13:30 Diagnostic Test (Pha) 1 ea 1 ea 02 XX ; Start 01/20/17 at 02:00 Meropenem/Sodium Chloride (Merrem 1 Gm/50 ml (Pmx)) 50 ml @ 100 mls/hr Q12 IVPB Last administered on 01/20/17 09:54; Admin Dose 100 MLS/HR; Start 01/19 at 21:00 Miconazole (Monistat-7) 1 supp HS VAG ; Start 01/20/17 at 21:00; Stop at 21:01 JEFF PALOMINO MD Jan 20, 2017 17:58
[2017-01-20 20:39] VITALS: BP 122/56; RESP 20
[2017-01-20] MEDS: MICONAZOLE 100 MG VAG SUPP VAG SCH (21:14)
[2017-01-21 05:52] LABS: CALCIUM 8.8 mg/dl (8.4-10.2); CREATININE 0.52 mg/dl (0.44-1.00); POTASSIUM 3.9 mmol/L (3.5-5.1)
[2017-01-21 06:13] LABS: BASOPHIL # 0.1 10^3/ul (0.0-0.1); BASOPHILS % 0.7 % (0.0-2.0); EOSINOPHILS # 0.3 10^3/ul (0.0-0.5); EOSINOPHILS % 3.8 % (0.0-7.0); HEMOGLOBIN 9.8 g/dl (12.0-16.0); LYMPHOCYTES # 1.1 10^3/ul (0.8-2.9); LYMPHOCYTES % 16.1 % (15.0-51.0); MEAN CORPUSCULAR HEMOGLOBIN 28.3 pg (29.0-33.0); MEAN CORPUSCULAR VOLUME 80.9 fl (82.0-101.0); MEAN PLATELET VOLUME 9.2 fl (7.4-10.4); MONOCYTE # 0.6 10^3/ul (0.3-0.9); MONOCYTES % 8.1 % (0.0-11.0); NEUTROPHIL # 4.7 10^3/ul (1.6-7.5); NEUTROPHILS % 68.5 % (39.0-77.0); PLATELET COUNT 378 10^3/UL (140-415); RED BLOOD COUNT 3.46 10^6/ul (4.20-5.40); RED CELL DISTRIBUTION WIDTH 13.4 % (11.5-14.5); WHITE BLOOD COUNT 6.9 10^3/ul (4.8-10.8)
[2017-01-21] MEDS: INSULIN ASPART [NOVOLOG] 3 ML PEN SC SCH ×4 (07:50→21:00)
[2017-01-21 07:52] VITALS: BP 127/59; RESP 19
[2017-01-21] MEDS: HYDROmorphONE 1 MG/ML SYG IV PRN ×4 (08:14→23:40)
[2017-01-21] MEDS: FAMOTIDINE 20 MG INJ IV SCH ×2 (08:46→21:15)
[2017-01-21] MEDS: metroNIDAZOLE 500 MG/NS (PMX) 100 ML IVPB SCH (08:46)
[2017-01-21] MEDS: ENOXAPARIN 30 MG/0.3 ML SYG SC SCH (08:54)
[2017-01-21] MEDS: MEROPENEM 1 GM/50ML(PMX) 50 ML IVPB SCH ×2 (09:44→21:15)
[2017-01-21] MEDS: POTASSIUM CHLORIDE 20 MEQ in LACTATED RINGER'S 1,000 ML IV SCH ×2 (13:55→22:38)
[2017-01-21 14:00] VITALS: BP 123/57; RESP 19
--- NOTE | 2017-01-21 14:46 | PN ---
Date/Time of Note Date/Time of Note DATE: 01/21/17 TIME: 14:43 Assessment/Plan VTE Prophylaxis VTE Prophylaxis Intervention: LMWH Lines/Catheters IV [facility] Type [facility]from [facility] PORTACATH Urinary Cath still in place: Yes Reason Cath still needed: other (indicate) (surgery) Assessment/Plan Chief Complaint/Hosp Course 61 yo woman known to me. She has known ovarian cancer and Oct 4 had another surgery. She had a second look earlier this year and was going to get adjuvant chemotherapy but she progressed quickly and it was not started. 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 She is just starting oral intake. I spoke to pathologist and asked a BRCA study to be sent. This may be helpful in choosing her future chemotherapy regimen. For now continue current post op care and anticipate starting chemotherapy when she is ambulatory. Problems: Assessment/Plan BRCA is pending. Good postop course. Pt is not yet eating and walking well but is making progress. We discussed that plans for chemotherapy will wait until she is ambulatory and eating normally. Subjective 24 Hr Interval Summary Free Text/Dictation Pt is slowly recuperating from surgery but is awake and alert albeit weak. Exam/Review of Systems Vital Signs Vitals Vital Signs Date Time Temp Pulse Resp B/P Pulse Ox O2 Delivery O2 Flow Rate FiO2 01/21/17 07:52 98.0 71 19 127/59 98 01/20/17 01:49 2.0 01/19/17 09:00 Nasal Cannula 01/18/17 03:54 28 Intake and Output 01/20/17 01/20/17 01/21/17 15:00 23:00 07:00 Intake Total 460 ml 3170 ml 1400 ml Output Total 1800 ml 2545 ml Balance 460 ml 1370 ml -1145 ml Exam Constitutional: alert, oriented Head: normocephalic ENMT: nl external ears & nose Neck: supple Respiratory: clear to auscultation Cardiovascular: regular rate and rhythm Gastrointestinal: other Results Result Diagram: 01/21/17 0557 01/21/17 0435 Results 24 hrs Laboratory Tests Test 01/20/17 17:44 01/20/17 21:01 01/21/17 04:35 01/21/17 05:57 Bedside Glucose 85 107 Sodium Level 136 Potassium Level 3.9 Chloride Level 103 Carbon Dioxide Level 23 Anion Gap 14 Blood Urea Nitrogen 6 L Creatinine 0.52 Glucose Level 81 Calcium Level 8.8 White Blood Count 6.9 Red Blood Count 3.46 L Hemoglobin 9.8 L Hematocrit 28.0 L Mean Corpuscular Volume 80.9 L Mean Corpuscular Hemoglobin 28.3 L Mean Corpuscular Hemoglobin Concent 35.0 Red Cell Distribution Width 13.4 Platelet Count 378 Mean Platelet Volume 9.2 Neutrophils % 68.5 Lymphocytes % 16.1 Monocytes % 8.1 Eosinophils % 3.8 Basophils % 0.7 Nucleated Red Blood Cells % 0.0 Neutrophils # 4.7 Lymphocytes # 1.1 Monocytes # 0.6 Eosinophils # 0.3 Basophils # 0.1 Nucleated Red Blood Cells # 0.0 Test 01/21/17 08:44 01/21/17 12:31 Bedside Glucose 113 112 Medications Medications Current Medications Miscellaneous Information 1 ea NOTE XX ; Start 01/13/17 at 08:30 Glucose (Glutose) 15 gm Q15M PRN PO DECREASED GLUCOSE; Start 01/13/17 at 08:30 Glucose (Glutose) 22.5 gm Q15M PRN PO DECREASED GLUCOSE; Start 01/13/17 at 08: 30 Dextrose (D50w Syringe) 25 ml Q15M PRN IV DECREASED GLUCOSE; Start 01/13/17 at 08:30 Dextrose (D50w Syringe) 50 ml Q15M PRN IV DECREASED GLUCOSE; Start 01/13/17 at 08:30 Glucagon (Glucagen) 1 mg Q15M PRN IM DECREASED GLUCOSE; Start 01/13/17 at 08:30 Glucose (Glutose) 15 gm Q15M PRN BUCCAL DECREASED GLUCOSE; Start 01/13/17 at 08 :30 Hydromorphone HCl (Dilaudid) 1 mg Q2H PRN IV PAIN LEVEL 6-10 Last administered on 01/21/17 12:26; Admin Dose 1 MG; Start 01/13/17 at 19:30 Diphenhydramine HCl (Benadryl) 25 mg Q6H PRN IV ITCHING; Start 01/13/17 at 19: 30 Ondansetron HCl (Zofran Inj) 4 mg Q6H PRN IV NAUSEA AND/OR VOMITING Last administered on 01/19/17 23:44; Admin Dose 4 MG; Start 01/13/17 at 19:30 Famotidine 20 mg 20 mg Q12 IV Last administered on 01/21/17 08:46; Admin Dose 20 MG; Start 01/13/17 at 21:00 Potassium Chloride 20 meq/ Lactated Ringer's 1,010 ml @ 80 mls/hr [id number] IV Last administered on 01/21/17 13:55; Admin Dose 80 MLS/HR; Start 01/13/17 at 19:25 Acetaminophen (Ofirmev 1000mg/ 100ml Iv) 100 ml @ 400 mls/hr Q6H PRN IVPB fever Last administered on 01/17/17 21:36; Admin Dose 400 MLS/HR; Start at 23:00 Enoxaparin Sodium (Lovenox) 30 mg DAILY SC Last administered on 01/21/17 08: 54; Admin Dose 30 MG; Start 01/16/17 at 10:00 Phenol (Chloraseptic Throat [place]) 2 spray Q2H PRN MT SORE THROAT Last administered on 01/16/17 14:07; Admin Dose 2 SPRAY; Start 01/16/17 at 13:30 Diagnostic Test (Pha) 1 ea 1 ea 02 XX ; Start 01/20/17 at 02:00 Meropenem/Sodium Chloride (Merrem 1 Gm/50 ml (Pmx)) 50 ml @ 100 mls/hr Q12 IVPB Last administered on 01/21/17 09:44; Admin Dose 100 MLS/HR; Start 01/19 at 21:00; Stop 01/26/17 at 20:59 Miconazole (Monistat-7) 1 supp HS VAG Last administered on 01/20/17 21:14; Admin Dose 1 SUPP; Start 01/20/17 at 21:00; Stop 01/26/17 at 21:01 JANUARY SHARMA MD Jan 21, 2017 14:46
[2017-01-21 19:23] VITALS: BP 132/61; RESP 22
--- NOTE | 2017-01-21 20:40 | PN ---
Date/Time of Note Date/Time of Note DATE: 01/21/17 TIME: 20:40 Assessment/Plan Lines/Catheters IV [facility] Type [facility] PORTACATH Urinary Cath still in place: Yes Assessment/Plan Assessment/Plan - E coli ESBL urinary tract infection,continue meropenem - Recurrent/persistent ovarian cancer, status post secondary cytoreduction surgery. Continue IV fluids. 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 Pedroza. - DM with hemoglobin A1c 6.3. Continue NovoLog per mild algorithm sliding scale. Further recommendations based on clinical course. Plan of care of care discussed with Dr. Phelps Exam/Review of Systems Vital Signs Vitals Vital Signs Date Time Temp Pulse Resp B/P Pulse Ox O2 Delivery O2 Flow Rate FiO2 01/21/17 19:23 98.7 80 22 132/61 100 01/20/17 01:49 2.0 01/19/17 09:00 Nasal Cannula 01/18/17 03:54 28 Intake and Output 01/20/17 01/20/17 01/21/17 15:00 23:00 07:00 Intake Total 460 ml 3170 ml 1400 ml Output Total 1800 ml 2545 ml Balance 460 ml 1370 ml -1145 ml Results Result Diagram: 01/21/17 0557 01/21/17 0435 Results 24 hrs Laboratory Tests Test 01/20/17 21:01 01/21/17 04:35 01/21/17 05:57 01/21/17 08:44 Bedside Glucose 107 113 Sodium Level 136 Potassium Level 3.9 Chloride Level 103 Carbon Dioxide Level 23 Anion Gap 14 Blood Urea Nitrogen 6 L Creatinine 0.52 Glucose Level 81 Calcium Level 8.8 White Blood Count 6.9 Red Blood Count 3.46 L Hemoglobin 9.8 L Hematocrit 28.0 L Mean Corpuscular Volume 80.9 L Mean Corpuscular Hemoglobin 28.3 L Mean Corpuscular Hemoglobin Concent 35.0 Red Cell Distribution Width 13.4 Platelet Count 378 Mean Platelet Volume 9.2 Neutrophils % 68.5 Lymphocytes % 16.1 Monocytes % 8.1 Eosinophils % 3.8 Basophils % 0.7 Nucleated Red Blood Cells % 0.0 Neutrophils # 4.7 Lymphocytes # 1.1 Monocytes # 0.6 Eosinophils # 0.3 Basophils # 0.1 Nucleated Red Blood Cells # 0.0 Test 01/21/17 12:31 01/21/17 17:30 Bedside Glucose 112 122 Medications Medications Current Medications Miscellaneous Information 1 ea NOTE XX ; Start 01/13/17 at 08:30 Glucose (Glutose) 15 gm Q15M PRN PO DECREASED GLUCOSE; Start 01/13/17 at 08:30 Glucose (Glutose) 22.5 gm Q15M PRN PO DECREASED GLUCOSE; Start 01/13/17 at 08: 30 Dextrose (D50w Syringe) 25 ml Q15M PRN IV DECREASED GLUCOSE; Start 01/13/17 at 08:30 Dextrose (D50w Syringe) 50 ml Q15M PRN IV DECREASED GLUCOSE; Start 01/13/17 at 08:30 Glucagon (Glucagen) 1 mg Q15M PRN IM DECREASED GLUCOSE; Start 01/13/17 at 08:30 Glucose (Glutose) 15 gm Q15M PRN BUCCAL DECREASED GLUCOSE; Start 01/13/17 at 08 :30 Hydromorphone HCl (Dilaudid) 1 mg Q2H PRN IV PAIN LEVEL 6-10 Last administered on 01/21/17 15:40; Admin Dose 1 MG; Start 01/13/17 at 19:30 Diphenhydramine HCl (Benadryl) 25 mg Q6H PRN IV ITCHING; Start 01/13/17 at 19: 30 Ondansetron HCl (Zofran Inj) 4 mg Q6H PRN IV NAUSEA AND/OR VOMITING Last administered on 01/19/17 23:44; Admin Dose 4 MG; Start 01/13/17 at 19:30 Famotidine 20 mg 20 mg Q12 IV Last administered on 01/21/17 08:46; Admin Dose 20 MG; Start 01/13/17 at 21:00 Potassium Chloride 20 meq/ Lactated Ringer's 1,010 ml @ 80 mls/hr [id number] IV Last administered on 01/21/17 13:55; Admin Dose 80 MLS/HR; Start 01/13/17 at 19:25 Acetaminophen (Ofirmev 1000mg/ 100ml Iv) 100 ml @ 400 mls/hr Q6H PRN IVPB fever Last administered on 01/17/17 21:36; Admin Dose 400 MLS/HR; Start at 23:00 Enoxaparin Sodium (Lovenox) 30 mg DAILY SC Last administered on 01/21/17 08: 54; Admin Dose 30 MG; Start 01/16/17 at 10:00 Phenol (Chloraseptic Throat [place]) 2 spray Q2H PRN MT SORE THROAT Last administered on 01/16/17 14:07; Admin Dose 2 SPRAY; Start 01/16/17 at 13:30 Diagnostic Test (Pha) 1 ea 1 ea 02 XX ; Start 01/20/17 at 02:00 Meropenem/Sodium Chloride (Merrem 1 Gm/50 ml (Pmx)) 50 ml @ 100 mls/hr Q12 IVPB Last administered on 01/21/17 09:44; Admin Dose 100 MLS/HR; Start 01/19 at 21:00; Stop 01/26/17 at 20:59 Miconazole (Monistat-7) 1 supp HS VAG Last administered on 01/20/17 21:14; Admin Dose 1 SUPP; Start 01/20/17 at 21:00; Stop 01/26/17 at 21:01 YFN BRIAN Jan 21, 2017 20:40
[2017-01-21] MEDS: MICONAZOLE 100 MG VAG SUPP VAG SCH (21:15)
[2017-01-21] MEDS: ACCU-CHEK XX SCH (22:52)
[2017-01-22 01:48] VITALS: BP 114/55; RESP 20
[2017-01-22] MEDS: POTASSIUM CHLORIDE 20 MEQ in LACTATED RINGER'S 1,000 ML IV SCH ×3 (02:06→14:41)
[2017-01-22] MEDS: INSULIN ASPART [NOVOLOG] 3 ML PEN SC SCH ×4 (07:50→20:58)
[2017-01-22] MEDS: MEROPENEM 1 GM/50ML(PMX) 50 ML IVPB SCH ×2 (08:33→21:13)
[2017-01-22] MEDS: ENOXAPARIN 30 MG/0.3 ML SYG SC SCH (08:37)
[2017-01-22 08:48] VITALS: BP 130/63; RESP 18
--- NOTE | 2017-01-22 08:54 | PN ---
Date/Time of Note Date/Time of Note DATE: 01/22/17 TIME: 08:52 Assessment/Plan VTE Prophylaxis VTE Prophylaxis Intervention: LMWH Lines/Catheters IV Catheter Type (from [facility]): PORT-A-CATH Urinary Cath still in place: Yes Reason Cath still needed: other (indicate) (surgery) Assessment/Plan Chief Complaint/Hosp Course 61 yo woman known to me. She has known ovarian cancer and Oct 4 had another surgery. She had a second look earlier this year and was going to get adjuvant chemotherapy but she progressed quickly and it was not started. 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 She is just starting oral intake. I spoke to pathologist and asked a BRCA study to be sent. This may be helpful in choosing her future chemotherapy regimen. For now continue current post op care and anticipate starting chemotherapy when she is ambulatory. Problems: Assessment/Plan No changes from yesterday. Perhaps less analgesics would help her fatigue and dizziness when upright. Subjective 24 Hr Interval Summary Free Text/Dictation Pt is sitting in a chair but still says she gets dizzy sometime after walking. Exam/Review of Systems Vital Signs Vitals Vital Signs Date Time Temp Pulse Resp B/P Pulse Ox O2 Delivery O2 Flow Rate FiO2 01/22/17 08:48 98.0 86 18 130/63 96 01/20/17 01:49 2.0 01/19/17 09:00 Nasal Cannula Intake and Output 01/21/17 01/21/17 01/22/17 15:00 23:00 07:00 Intake Total 510 ml 1330 ml 2340 ml Output Total 1920 ml 2460 ml Balance 510 ml -590 ml -120 ml Exam Constitutional: alert, oriented Head: normocephalic ENMT: nl external ears & nose Neck: supple Respiratory: clear to auscultation Cardiovascular: regular rate and rhythm Gastrointestinal: other (s/p laparotomy) Results Result Diagram: 01/21/17 0557 01/21/17 0435 Results 24 hrs Laboratory Tests Test 01/21/17 12:31 01/21/17 17:30 01/21/17 21:13 01/22/17 08:32 Bedside Glucose 112 122 96 116 Medications Medications Current Medications Miscellaneous Information 1 ea NOTE XX ; Start 01/13/17 at 08:30 Glucose (Glutose) 15 gm Q15M PRN PO DECREASED GLUCOSE; Start 01/13/17 at 08:30 Glucose (Glutose) 22.5 gm Q15M PRN PO DECREASED GLUCOSE; Start 01/13/17 at 08: 30 Dextrose (D50w Syringe) 25 ml Q15M PRN IV DECREASED GLUCOSE; Start 01/13/17 at 08:30 Dextrose (D50w Syringe) 50 ml Q15M PRN IV DECREASED GLUCOSE; Start 01/13/17 at 08:30 Glucagon (Glucagen) 1 mg Q15M PRN IM DECREASED GLUCOSE; Start 01/13/17 at 08:30 Glucose (Glutose) 15 gm Q15M PRN BUCCAL DECREASED GLUCOSE; Start 01/13/17 at 08 :30 Hydromorphone HCl (Dilaudid) 1 mg Q2H PRN IV PAIN LEVEL 6-10 Last administered on 01/21/17 23:40; Admin Dose 1 MG; Start 01/13/17 at 19:30 Diphenhydramine HCl (Benadryl) 25 mg Q6H PRN IV ITCHING; Start 01/13/17 at 19: 30 Ondansetron HCl (Zofran Inj) 4 mg Q6H PRN IV NAUSEA AND/OR VOMITING Last administered on 01/19/17 23:44; Admin Dose 4 MG; Start 01/13/17 at 19:30 Famotidine 20 mg 20 mg Q12 IV Last administered on 01/21/17 21:15; Admin Dose 20 MG; Start 01/13/17 at 21:00 Potassium Chloride 20 meq/ Lactated Ringer's 1,010 ml @ 80 mls/hr [id number] IV Last administered on 01/22/17 02:06; Admin Dose 80 MLS/HR; Start 01/13/17 at 19:25 Acetaminophen (Ofirmev 1000mg/ 100ml Iv) 100 ml @ 400 mls/hr Q6H PRN IVPB fever Last administered on 01/17/17 21:36; Admin Dose 400 MLS/HR; Start at 23:00 Enoxaparin Sodium (Lovenox) 30 mg DAILY SC Last administered on 01/22/17 08: 37; Admin Dose 30 MG; Start 01/16/17 at 10:00 Phenol (Chloraseptic Throat [place]) 2 spray Q2H PRN MT SORE THROAT Last administered on 01/16/17 14:07; Admin Dose 2 SPRAY; Start 01/16/17 at 13:30 Diagnostic Test (Pha) 1 ea 1 ea 02 XX ; Start 01/20/17 at 02:00 Meropenem/Sodium Chloride (Merrem 1 Gm/50 ml (Pmx)) 50 ml @ 100 mls/hr Q12 IVPB Last administered on 01/22/17 08:33; Admin Dose 100 MLS/HR; Start 01/19 at 21:00; Stop 01/26/17 at 20:59 Miconazole (Monistat-7) 1 supp HS VAG Last administered on 01/21/17 21:15; Admin Dose 1 SUPP; Start 01/20/17 at 21:00; Stop 01/26/17 at 21:01 JANUARY SHARMA MD Jan 22, 2017 08:54
[2017-01-22] MEDS: FAMOTIDINE 20 MG INJ IV SCH ×2 (09:13→21:12)
[2017-01-22] MEDS: ACETAMINOPHEN 1000MG/100ML IV 100 ML IVPB PRN (09:13)
[2017-01-22] MEDS: HYDROmorphONE 1 MG/ML SYG IV PRN (14:36)
[2017-01-22 15:16] VITALS: BP 118/56; RESP 18
--- NOTE | 2017-01-22 15:32 | PN ---
Date/Time of Note Date/Time of Note DATE: 01/22/17 TIME: 15:27 Assessment/Plan VTE Prophylaxis VTE Prophylaxis Intervention: SCD's Lines/Catheters IV Catheter Type (from Nrs): PORTACATH Urinary Cath still in place: Yes Reason Cath still needed: urinary retention Assessment/Plan Chief Complaint/Hosp Course No acute events,pt looks comfortable, continue Preciado as per surgery. Assessment/Plan - E coli ESBL urinary tract infection,continue meropenem - Recurrent/persistent ovarian cancer, status post secondary cytoreduction surgery. Continue IV fluids. 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 Pedroza. - DM with hemoglobin A1c 6.3. Continue NovoLog per mild algorithm sliding scale. Further recommendations based on clinical course. Plan of care of care discussed with Dr. Phelps Problems: Exam/Review of Systems Vital Signs Vitals Vital Signs Date Time Temp Pulse Resp B/P Pulse Ox O2 Delivery O2 Flow Rate FiO2 01/22/17 15:16 98.0 103 18 118/56 95 01/20/17 01:49 2.0 01/19/17 09:00 Nasal Cannula Intake and Output 01/21/17 01/21/17 01/22/17 15:00 23:00 07:00 Intake Total 510 ml 1330 ml 2340 ml Output Total 1920 ml 2460 ml Balance 510 ml -590 ml -120 ml Exam Constitutional: alert Head: normocephalic Respiratory: normal air movement Cardiovascular: nl pulses Gastrointestinal: non-tender, other (s/p postsurgery), soft Genitourinary - Female: other (Preciado catheter) Extremities: normal pulses Results Result Diagram: 01/21/17 0557 01/21/17 0435 Results 24 hrs Laboratory Tests Test 01/21/17 17:30 01/21/17 21:13 01/22/17 08:32 01/22/17 12:30 Bedside Glucose 122 96 116 108 Medications Medications Current Medications Miscellaneous Information 1 ea NOTE XX ; Start 01/13/17 at 08:30 Glucose (Glutose) 15 gm Q15M PRN PO DECREASED GLUCOSE; Start 01/13/17 at 08:30 Glucose (Glutose) 22.5 gm Q15M PRN PO DECREASED GLUCOSE; Start 01/13/17 at 08: 30 Dextrose (D50w Syringe) 25 ml Q15M PRN IV DECREASED GLUCOSE; Start 01/13/17 at 08:30 Dextrose (D50w Syringe) 50 ml Q15M PRN IV DECREASED GLUCOSE; Start 01/13/17 at 08:30 Glucagon (Glucagen) 1 mg Q15M PRN IM DECREASED GLUCOSE; Start 01/13/17 at 08:30 Glucose (Glutose) 15 gm Q15M PRN BUCCAL DECREASED GLUCOSE; Start 01/13/17 at 08 :30 Hydromorphone HCl (Dilaudid) 1 mg Q2H PRN IV PAIN LEVEL 6-10 Last administered on 01/22/17 14:36; Admin Dose 1 MG; Start 01/13/17 at 19:30 Diphenhydramine HCl (Benadryl) 25 mg Q6H PRN IV ITCHING; Start 01/13/17 at 19: 30 Ondansetron HCl (Zofran Inj) 4 mg Q6H PRN IV NAUSEA AND/OR VOMITING Last administered on 01/19/17 23:44; Admin Dose 4 MG; Start 01/13/17 at 19:30 Famotidine 20 mg 20 mg Q12 IV Last administered on 01/22/17 09:13; Admin Dose 20 MG; Start 01/13/17 at 21:00 Potassium Chloride 20 meq/ Lactated Ringer's 1,010 ml @ 80 mls/hr [id number] IV Last administered on 01/22/17 14:41; Admin Dose 80 MLS/HR; Start 01/13/17 at 19:25 Acetaminophen (Ofirmev 1000mg/ 100ml Iv) 100 ml @ 400 mls/hr Q6H PRN IVPB fever Last administered on 01/22/17 09:13; Admin Dose 400 MLS/HR; Start at 23:00 Enoxaparin Sodium (Lovenox) 30 mg DAILY SC Last administered on 01/22/17 08: 37; Admin Dose 30 MG; Start 01/16/17 at 10:00 Phenol (Chloraseptic Throat [place]) 2 spray Q2H PRN MT SORE THROAT Last administered on 01/16/17 14:07; Admin Dose 2 SPRAY; Start 01/16/17 at 13:30 Diagnostic Test (Pha) 1 ea 1 ea 02 XX ; Start 01/20/17 at 02:00 Meropenem/Sodium Chloride (Merrem 1 Gm/50 ml (Pmx)) 50 ml @ 100 mls/hr Q12 IVPB Last administered on 01/22/17 08:33; Admin Dose 100 MLS/HR; Start 01/19 at 21:00; Stop 01/26/17 at 20:59 Miconazole (Monistat-7) 1 supp HS VAG Last administered on 01/21/17 21:15; Admin Dose 1 SUPP; Start 01/20/17 at 21:00; Stop 01/26/17 at 21:01 MATHIEU WALSH Jan 22, 2017 15:32
[2017-01-22 20:00] VITALS: BP 135/60; PULSE 76; RESP 18
[2017-01-22] MEDS: MICONAZOLE 100 MG VAG SUPP VAG SCH (21:13)
--- NOTE | 2017-01-22 22:17 | PN ---
Date/Time of Note Date/Time of Note DATE: 01/22/17 TIME: 22:12 Assessment/Plan VTE Prophylaxis VTE Prophylaxis Intervention: SCD's Lines/Catheters IV Catheter Type (from Nrs): Central Line Central line still needed: Yes Urinary Cath still in place: Yes Reason Cath still needed: other (indicate) Assessment/Plan Chief Complaint/Hosp Course recurrent ovarian cancer Problems: Assessment/Plan A- imprved P- drain removed and adv diet. Probably chemo soon. Subjective 24 Hr Interval Summary Free Text/Dictation feels better and [place] diet Exam/Review of Systems Vital Signs Vitals Vital Signs Date Time Temp Pulse Resp B/P Pulse Ox O2 Delivery O2 Flow Rate FiO2 01/22/17 20:00 98.0 76 18 135/60 97 Room Air 01/20/17 01:49 2.0 Intake and Output 01/21/17 01/21/17 01/22/17 15:00 23:00 07:00 Intake Total 510 ml 1330 ml 2340 ml Output Total 1920 ml 2460 ml Balance 510 ml -590 ml -120 ml Exam Resp- clear CVS- nsr Ab- soft NT Ext- NT n0 edema Results Result Diagram: 01/21/17 0557 01/21/17 0435 Results 24 hrs Laboratory Tests Test 01/22/17 08:32 01/22/17 12:30 01/22/17 17:21 01/22/17 20:27 Bedside Glucose 116 108 95 105 Medications Medications Current Medications Miscellaneous Information 1 ea NOTE XX ; Start 01/13/17 at 08:30 Glucose (Glutose) 15 gm Q15M PRN PO DECREASED GLUCOSE; Start 01/13/17 at 08:30 Glucose (Glutose) 22.5 gm Q15M PRN PO DECREASED GLUCOSE; Start 01/13/17 at 08: 30 Dextrose (D50w Syringe) 25 ml Q15M PRN IV DECREASED GLUCOSE; Start 01/13/17 at 08:30 Dextrose (D50w Syringe) 50 ml Q15M PRN IV DECREASED GLUCOSE; Start 01/13/17 at 08:30 Glucagon (Glucagen) 1 mg Q15M PRN IM DECREASED GLUCOSE; Start 01/13/17 at 08:30 Glucose (Glutose) 15 gm Q15M PRN BUCCAL DECREASED GLUCOSE; Start 01/13/17 at 08 :30 Hydromorphone HCl (Dilaudid) 1 mg Q2H PRN IV PAIN LEVEL 6-10 Last administered on 01/22/17 14:36; Admin Dose 1 MG; Start 01/13/17 at 19:30 Diphenhydramine HCl (Benadryl) 25 mg Q6H PRN IV ITCHING; Start 01/13/17 at 19: 30 Ondansetron HCl (Zofran Inj) 4 mg Q6H PRN IV NAUSEA AND/OR VOMITING Last administered on 01/19/17 23:44; Admin Dose 4 MG; Start 01/13/17 at 19:30 Famotidine 20 mg 20 mg Q12 IV Last administered on 01/22/17 21:12; Admin Dose 20 MG; Start 01/13/17 at 21:00 Potassium Chloride 20 meq/ Lactated Ringer's 1,010 ml @ 60 mls/hr [id number] IV Last administered on 01/22/17 14:41; Admin Dose 80 MLS/HR; Start 01/13/17 at 19:25 Acetaminophen (Ofirmev 1000mg/ 100ml Iv) 100 ml @ 400 mls/hr Q6H PRN IVPB fever Last administered on 01/22/17 09:13; Admin Dose 400 MLS/HR; Start at 23:00 Enoxaparin Sodium (Lovenox) 30 mg DAILY SC Last administered on 01/22/17 08: 37; Admin Dose 30 MG; Start 01/16/17 at 10:00 Phenol (Chloraseptic Throat [place]) 2 spray Q2H PRN MT SORE THROAT Last administered on 01/16/17 14:07; Admin Dose 2 SPRAY; Start 01/16/17 at 13:30 Diagnostic Test (Pha) 1 ea 1 ea 02 XX ; Start 01/20/17 at 02:00 Meropenem/Sodium Chloride (Merrem 1 Gm/50 ml (Pmx)) 50 ml @ 100 mls/hr Q12 IVPB Last administered on 01/22/17 21:13; Admin Dose 100 MLS/HR; Start 01/19 at 21:00; Stop 01/26/17 at 20:59 Miconazole (Monistat-7) 1 supp HS VAG Last administered on 01/22/17 21:13; Admin Dose 1 SUPP; Start 01/20/17 at 21:00; Stop 01/26/17 at 21:01 JEFF PALOMINO MD Jan 22, 2017 22:17
[2017-01-23 02:00] VITALS: BP 132/64; RESP 18
[2017-01-23] MEDS: ACCU-CHEK XX SCH (02:00)
[2017-01-23] MEDS: POTASSIUM CHLORIDE 20 MEQ in LACTATED RINGER'S 1,000 ML IV SCH (03:54)
[2017-01-23 08:06] VITALS: BP 130/60; RESP 15
[2017-01-23] MEDS: INSULIN ASPART [NOVOLOG] 3 ML PEN SC SCH ×4 (08:25→21:00)
[2017-01-23] MEDS: MEROPENEM 1 GM/50ML(PMX) 50 ML IVPB SCH ×2 (08:53→21:09)
[2017-01-23] MEDS: FAMOTIDINE 20 MG INJ IV SCH (08:53)
[2017-01-23] MEDS: ENOXAPARIN 30 MG/0.3 ML SYG SC SCH (09:02)
--- NOTE | 2017-01-23 11:40 | PN ---
Date/Time of Note Date/Time of Note DATE: 01/23/17 TIME: 11:40 Assessment/Plan VTE Prophylaxis VTE Prophylaxis Intervention: other Lines/Catheters IV Catheter Type (from Nrs): PORTACATH Urinary Cath still in place: Yes Reason Cath still needed: skin wounds contaminated by urine Assessment/Plan Chief Complaint/Hosp Course - E coli ESBL urinary tract infection,continue meropenem - Recurrent/persistent ovarian cancer, status post secondary cytoreduction surgery. Continue IV fluids. 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 Pedroza. - DM with hemoglobin A1c 6.3. Continue NovoLog per mild algorithm sliding scale. Problems: Subjective 24 Hr Interval Summary Free Text/Dictation Patient has no complaints Exam/Review of Systems Vital Signs Vitals Vital Signs Date Time Temp Pulse Resp B/P Pulse Ox O2 Delivery O2 Flow Rate FiO2 01/23/17 08:06 98.3 75 15 130/60 98 01/22/17 20:00 Room Air 01/20/17 01:49 2.0 Intake and Output 01/22/17 01/22/17 01/23/17 15:00 23:00 07:00 Intake Total 760 ml 990 ml 1190 ml Output Total 2520 ml 1200 ml Balance 760 ml -1530 ml -10 ml Exam Constitutional: well developed Head: atraumatic, normocephalic Neck: supple Respiratory: diminished breath sounds Cardiovascular: regular rate and rhythm Gastrointestinal: non-tender, soft Extremities: normal pulses Results Result Diagram: 01/21/17 0557 01/21/17 0435 Results 24 hrs Laboratory Tests Test 01/22/17 12:30 01/22/17 17:21 01/22/17 20:27 01/23/17 08:51 Bedside Glucose 108 95 105 119 Medications Medications Current Medications Miscellaneous Information 1 ea NOTE XX ; Start 01/13/17 at 08:30 Glucose (Glutose) 15 gm Q15M PRN PO DECREASED GLUCOSE; Start 01/13/17 at 08:30 Glucose (Glutose) 22.5 gm Q15M PRN PO DECREASED GLUCOSE; Start 01/13/17 at 08: 30 Dextrose (D50w Syringe) 25 ml Q15M PRN IV DECREASED GLUCOSE; Start 01/13/17 at 08:30 Dextrose (D50w Syringe) 50 ml Q15M PRN IV DECREASED GLUCOSE; Start 01/13/17 at 08:30 Glucagon (Glucagen) 1 mg Q15M PRN IM DECREASED GLUCOSE; Start 01/13/17 at 08:30 Glucose (Glutose) 15 gm Q15M PRN BUCCAL DECREASED GLUCOSE; Start 01/13/17 at 08 :30 Hydromorphone HCl (Dilaudid) 1 mg Q2H PRN IV PAIN LEVEL 6-10 Last administered on 01/22/17 14:36; Admin Dose 1 MG; Start 01/13/17 at 19:30 Diphenhydramine HCl (Benadryl) 25 mg Q6H PRN IV ITCHING; Start 01/13/17 at 19: 30 Ondansetron HCl (Zofran Inj) 4 mg Q6H PRN IV NAUSEA AND/OR VOMITING Last administered on 01/19/17 23:44; Admin Dose 4 MG; Start 01/13/17 at 19:30 Famotidine 20 mg 20 mg Q12 IV Last administered on 01/23/17 08:53; Admin Dose 20 MG; Start 01/13/17 at 21:00 Potassium Chloride 20 meq/ Lactated Ringer's 1,010 ml @ 60 mls/hr [id number] IV Last administered on 01/23/17 03:54; Admin Dose 60 MLS/HR; Start 01/13/17 at 19:25 Acetaminophen (Ofirmev 1000mg/ 100ml Iv) 100 ml @ 400 mls/hr Q6H PRN IVPB fever Last administered on 01/22/17 09:13; Admin Dose 400 MLS/HR; Start at 23:00 Enoxaparin Sodium (Lovenox) 30 mg DAILY SC Last administered on 01/23/17 09: 02; Admin Dose 30 MG; Start 01/16/17 at 10:00 Phenol (Chloraseptic Throat [place]) 2 spray Q2H PRN MT SORE THROAT Last administered on 01/16/17 14:07; Admin Dose 2 SPRAY; Start 01/16/17 at 13:30 Diagnostic Test (Pha) 1 ea 1 ea 02 XX ; Start 01/20/17 at 02:00 Meropenem/Sodium Chloride (Merrem 1 Gm/50 ml (Pmx)) 50 ml @ 100 mls/hr Q12 IVPB Last administered on 01/23/17 08:53; Admin Dose 100 MLS/HR; Start 01/19 at 21:00; Stop 01/26/17 at 20:59 Miconazole (Monistat-7) 1 supp HS VAG Last administered on 01/22/17 21:13; Admin Dose 1 SUPP; Start 01/20/17 at 21:00; Stop 01/26/17 at 21:01 WAN CLANCY Jan 23, 2017 11:40
[2017-01-23 14:00] VITALS: BP 144/69; RESP 15
--- NOTE | 2017-01-23 17:58 | PN ---
Date/Time of Note Date/Time of Note DATE: 01/23/17 TIME: 17:55 Assessment/Plan VTE Prophylaxis VTE Prophylaxis Intervention: other Lines/Catheters IV Catheter Type (from Nrsg): PORTACATH Urinary Cath still in place: Yes Reason Cath still needed: other (indicate) (post op ) Assessment/Plan Chief Complaint/Hosp Course 61 year old female who is post surgery for recurrent ovarian cancer. Recovering well post surgery. Will need chemotherapy once recovered. Dr. Jeff to follow up on Wednesday. Problems: Subjective 24 Hr Interval Summary Free Text/Dictation Oncology covering for Dr. Jeff Patient feels ok, a little tired today. Pain is minimal. Starting to eat and there is no nausea. Constitutional: poor po, No chills, No diaphoresis, No disoriented, No febrile Gastrointestinal: decreased appetite, flatus, No blood, No diarrhea, No pain, No passing stool, No vomiting Exam/Review of Systems Vital Signs Vitals Vital Signs Date Time Temp Pulse Resp B/P Pulse Ox O2 Delivery O2 Flow Rate FiO2 01/23/17 14:00 98.9 91 15 144/69 100 01/22/17 20:00 Room Air 01/20/17 01:49 2.0 Intake and Output 01/22/17 01/22/17 01/23/17 15:00 23:00 07:00 Intake Total 760 ml 990 ml 1190 ml Output Total 2520 ml 1200 ml Balance 760 ml -1530 ml -10 ml Exam NAD Sitting up in bed. Clear bilaterally Abd - midline incision is clean. Ext no edema. Results Result Diagram: 01/21/17 0557 01/21/17 0435 Results 24 hrs Laboratory Tests Test 01/22/17 20:27 01/23/17 08:51 01/23/17 12:17 01/23/17 17:23 Bedside Glucose 105 119 129 113 Medications Medications Current Medications Miscellaneous Information 1 ea NOTE XX ; Start 01/13/17 at 08:30 Glucose (Glutose) 15 gm Q15M PRN PO DECREASED GLUCOSE; Start 01/13/17 at 08:30 Glucose (Glutose) 22.5 gm Q15M PRN PO DECREASED GLUCOSE; Start 01/13/17 at 08: 30 Dextrose (D50w Syringe) 25 ml Q15M PRN IV DECREASED GLUCOSE; Start 01/13/17 at 08:30 Dextrose (D50w Syringe) 50 ml Q15M PRN IV DECREASED GLUCOSE; Start 01/13/17 at 08:30 Glucagon (Glucagen) 1 mg Q15M PRN IM DECREASED GLUCOSE; Start 01/13/17 at 08:30 Glucose (Glutose) 15 gm Q15M PRN BUCCAL DECREASED GLUCOSE; Start 01/13/17 at 08 :30 Hydromorphone HCl (Dilaudid) 1 mg Q2H PRN IV PAIN LEVEL 6-10 Last administered on 01/22/17 14:36; Admin Dose 1 MG; Start 01/13/17 at 19:30 Diphenhydramine HCl (Benadryl) 25 mg Q6H PRN IV ITCHING; Start 01/13/17 at 19: 30 Ondansetron HCl 4 mg 4 mg Q6H PRN IV NAUSEA AND/OR VOMITING Last administered on 01/19/17 23:44; Admin Dose 4 MG; Start 01/13/17 at 19:30 Acetaminophen (Ofirmev 1000mg/ 100ml Iv) 100 ml @ 400 mls/hr Q6H PRN IVPB fever Last administered on 01/22/17 09:13; Admin Dose 400 MLS/HR; Start at 23:00 Enoxaparin Sodium (Lovenox) 30 mg DAILY SC Last administered on 01/23/17 09: 02; Admin Dose 30 MG; Start 01/16/17 at 10:00 Phenol (Chloraseptic Throat [place]) 2 spray Q2H PRN MT SORE THROAT Last administered on 01/16/17 14:07; Admin Dose 2 SPRAY; Start 01/16/17 at 13:30 Diagnostic Test (Pha) 1 ea 1 ea 02 XX ; Start 01/20/17 at 02:00 Meropenem/Sodium Chloride (Merrem 1 Gm/50 ml (Pmx)) 50 ml @ 100 mls/hr Q12 IVPB Last administered on 01/23/17 08:53; Admin Dose 100 MLS/HR; Start 01/19 at 21:00; Stop 01/26/17 at 20:59 Miconazole (Monistat-7) 1 supp HS VAG Last administered on 01/22/17 21:13; Admin Dose 1 SUPP; Start 01/20/17 at 21:00; Stop 01/26/17 at 21:01 Famotidine (Pepcid) 20 mg Q12 PO ; Start 01/23/17 at 21:00 CHRIS TOLLIVER MD Jan 23, 2017 17:58
[2017-01-23 19:15] VITALS: BP 124/58; RESP 18
[2017-01-23] MEDS: FAMOTIDINE 20 MG TAB PO SCH (21:08)
[2017-01-23] MEDS: MICONAZOLE 100 MG VAG SUPP VAG SCH (21:10)
[2017-01-24 02:00] VITALS: BP 134/63; RESP 18
[2017-01-24] MEDS: ACCU-CHEK XX SCH (02:00)
[2017-01-24 07:47] VITALS: BP 124/59; RESP 16
[2017-01-24] MEDS: MEROPENEM 1 GM/50ML(PMX) 50 ML IVPB SCH ×2 (08:29→22:02)
[2017-01-24] MEDS: FAMOTIDINE 20 MG TAB PO SCH ×2 (08:29→22:02)
[2017-01-24] MEDS: INSULIN ASPART [NOVOLOG] 3 ML PEN SC SCH ×4 (08:30→21:00)
[2017-01-24] MEDS: ENOXAPARIN 30 MG/0.3 ML SYG SC SCH (09:01)
--- NOTE | 2017-01-24 12:49 | PN ---
Date/Time of Note Date/Time of Note DATE: 01/24/17 TIME: 12:48 Assessment/Plan VTE Prophylaxis VTE Prophylaxis Intervention: other Lines/Catheters IV Catheter Type (from Nrs): PORT A CATH Urinary Cath still in place: Yes Reason Cath still needed: skin wounds contaminated by urine Assessment/Plan Chief Complaint/Hosp Course - E coli ESBL urinary tract infection,continue meropenem - Recurrent/persistent ovarian cancer, status post secondary cytoreduction surgery. Continue IV fluids. 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 Pedroza. - DM with hemoglobin A1c 6.3. Continue NovoLog per mild algorithm sliding scale. Problems: Subjective 24 Hr Interval Summary Free Text/Dictation Patient has no complaints Exam/Review of Systems Vital Signs Vitals Vital Signs Date Time Temp Pulse Resp B/P Pulse Ox O2 Delivery O2 Flow Rate FiO2 01/24/17 07:47 98.7 79 16 124/59 100 01/22/17 20:00 Room Air Intake and Output 01/23/17 01/23/17 01/24/17 15:00 23:00 07:00 Intake Total 350 ml 950 ml 400 ml Output Total 1600 ml 1100 ml Balance 350 ml -650 ml -700 ml Exam Constitutional: well developed Head: atraumatic, normocephalic Neck: supple Respiratory: clear to auscultation Cardiovascular: regular rate and rhythm Gastrointestinal: non-tender, soft Extremities: normal pulses Results Result Diagram: 01/21/17 0557 01/21/17 0435 Results 24 hrs Laboratory Tests Test 01/23/17 17:23 01/23/17 21:10 01/24/17 08:36 01/24/17 12:31 Bedside Glucose 113 157 121 123 Medications Medications Current Medications Miscellaneous Information 1 ea NOTE XX ; Start 01/13/17 at 08:30 Glucose (Glutose) 15 gm Q15M PRN PO DECREASED GLUCOSE; Start 01/13/17 at 08:30 Glucose (Glutose) 22.5 gm Q15M PRN PO DECREASED GLUCOSE; Start 01/13/17 at 08: 30 Dextrose (D50w Syringe) 25 ml Q15M PRN IV DECREASED GLUCOSE; Start 01/13/17 at 08:30 Dextrose (D50w Syringe) 50 ml Q15M PRN IV DECREASED GLUCOSE; Start 01/13/17 at 08:30 Glucagon (Glucagen) 1 mg Q15M PRN IM DECREASED GLUCOSE; Start 01/13/17 at 08:30 Glucose (Glutose) 15 gm Q15M PRN BUCCAL DECREASED GLUCOSE; Start 01/13/17 at 08 :30 Hydromorphone HCl (Dilaudid) 1 mg Q2H PRN IV PAIN LEVEL 6-10 Last administered on 01/22/17 14:36; Admin Dose 1 MG; Start 01/13/17 at 19:30 Diphenhydramine HCl (Benadryl) 25 mg Q6H PRN IV ITCHING; Start 01/13/17 at 19: 30 Ondansetron HCl 4 mg 4 mg Q6H PRN IV NAUSEA AND/OR VOMITING Last administered on 01/19/17 23:44; Admin Dose 4 MG; Start 01/13/17 at 19:30 Acetaminophen (Ofirmev 1000mg/ 100ml Iv) 100 ml @ 400 mls/hr Q6H PRN IVPB fever Last administered on 01/22/17 09:13; Admin Dose 400 MLS/HR; Start at 23:00 Enoxaparin Sodium (Lovenox) 30 mg DAILY SC Last administered on 01/24/17 09: 01; Admin Dose 30 MG; Start 01/16/17 at 10:00 Phenol (Chloraseptic Throat [place]) 2 spray Q2H PRN MT SORE THROAT Last administered on 01/16/17 14:07; Admin Dose 2 SPRAY; Start 01/16/17 at 13:30 Diagnostic Test (Pha) 1 ea 1 ea 02 XX ; Start 01/20/17 at 02:00 Meropenem/Sodium Chloride (Merrem 1 Gm/50 ml (Pmx)) 50 ml @ 100 mls/hr Q12 IVPB Last administered on 01/24/17 08:29; Admin Dose 100 MLS/HR; Start 01/19 at 21:00; Stop 01/26/17 at 20:59 Miconazole (Monistat-7) 1 supp HS VAG Last administered on 01/23/17 21:10; Admin Dose 1 SUPP; Start 01/20/17 at 21:00; Stop 01/26/17 at 21:01 Famotidine (Pepcid) 20 mg Q12 PO Last administered on 01/24/17 08:29; Admin Dose 20 MG; Start 01/23/17 at 21:00 WAN CLANCY Jan 24, 2017 12:49
[2017-01-24 14:00] VITALS: BP 133/63; RESP 15
[2017-01-24 19:15] VITALS: BP 135/63; RESP 19
--- NOTE | 2017-01-24 20:03 | PN ---
Date/Time of Note Date/Time of Note DATE: 01/24/17 TIME: 19:54 Assessment/Plan VTE Prophylaxis VTE Prophylaxis Intervention: LMWH Lines/Catheters IV Catheter Type (from [facility]): PORT A CATH Urinary Cath still in place: Yes Reason Cath still needed: other (indicate) Assessment/Plan Chief Complaint/Hosp Course recurrent ovarian cancer Problems: Assessment/Plan A- improved P- eval diet and consider chemi soon; either carbo due to very unusual disease pattern or consier [place] other; discuss with Dr. Medeiros Subjective 24 Hr Interval Summary Free Text/Dictation comfortable, OOB, and [place] diet and somewhat OOB. Exam/Review of Systems Vital Signs Vitals Vital Signs Date Time Temp Pulse Resp B/P Pulse Ox O2 Delivery O2 Flow Rate FiO2 01/24/17 14:00 98.0 92 15 133/63 96 01/22/17 20:00 Room Air Intake and Output 01/23/17 01/23/17 01/24/17 15:00 23:00 07:00 Intake Total 350 ml 950 ml 400 ml Output Total 1600 ml 1100 ml Balance 350 ml -650 ml -700 ml Exam Resp- clear CVS- NSR And-sfot clean Ext nt Results Result Diagram: 01/21/17 0557 01/21/17 0435 Results 24 hrs Laboratory Tests Test 01/23/17 21:10 01/24/17 08:36 01/24/17 12:31 01/24/17 17:50 Bedside Glucose 157 121 123 126 Medications Medications Current Medications Miscellaneous Information 1 ea NOTE XX ; Start 01/13/17 at 08:30 Glucose (Glutose) 15 gm Q15M PRN PO DECREASED GLUCOSE; Start 01/13/17 at 08:30 Glucose (Glutose) 22.5 gm Q15M PRN PO DECREASED GLUCOSE; Start 01/13/17 at 08: 30 Dextrose (D50w Syringe) 25 ml Q15M PRN IV DECREASED GLUCOSE; Start 01/13/17 at 08:30 Dextrose (D50w Syringe) 50 ml Q15M PRN IV DECREASED GLUCOSE; Start 01/13/17 at 08:30 Glucagon (Glucagen) 1 mg Q15M PRN IM DECREASED GLUCOSE; Start 01/13/17 at 08:30 Glucose (Glutose) 15 gm Q15M PRN BUCCAL DECREASED GLUCOSE; Start 01/13/17 at 08 :30 Hydromorphone HCl (Dilaudid) 1 mg Q2H PRN IV PAIN LEVEL 6-10 Last administered on 01/22/17 14:36; Admin Dose 1 MG; Start 01/13/17 at 19:30 Diphenhydramine HCl (Benadryl) 25 mg Q6H PRN IV ITCHING; Start 01/13/17 at 19: 30 Ondansetron HCl 4 mg 4 mg Q6H PRN IV NAUSEA AND/OR VOMITING Last administered on 01/19/17 23:44; Admin Dose 4 MG; Start 01/13/17 at 19:30 Acetaminophen (Ofirmev 1000mg/ 100ml Iv) 100 ml @ 400 mls/hr Q6H PRN IVPB fever Last administered on 01/22/17 09:13; Admin Dose 400 MLS/HR; Start at 23:00 Enoxaparin Sodium (Lovenox) 30 mg DAILY SC Last administered on 01/24/17 09: 01; Admin Dose 30 MG; Start 01/16/17 at 10:00 Phenol (Chloraseptic Throat [place]) 2 spray Q2H PRN MT SORE THROAT Last administered on 01/16/17 14:07; Admin Dose 2 SPRAY; Start 01/16/17 at 13:30 Diagnostic Test (Pha) 1 ea 1 ea 02 XX ; Start 01/20/17 at 02:00 Meropenem/Sodium Chloride (Merrem 1 Gm/50 ml (Pmx)) 50 ml @ 100 mls/hr Q12 IVPB Last administered on 01/24/17 08:29; Admin Dose 100 MLS/HR; Start 01/19 at 21:00; Stop 01/26/17 at 20:59 Miconazole (Monistat-7) 1 supp HS VAG Last administered on 01/23/17 21:10; Admin Dose 1 SUPP; Start 01/20/17 at 21:00; Stop 01/26/17 at 21:01 Famotidine (Pepcid) 20 mg Q12 PO Last administered on 01/24/17 08:29; Admin Dose 20 MG; Start 01/23/17 at 21:00 JEFF PALOMINO MD Jan 24, 2017 20:03
[2017-01-24] MEDS ORDERED: HYDROmorphONE 0.5 MG/0.5 ML SYG IV PRN (21:00)
[2017-01-24] MEDS ORDERED: HYDROmorphONE 1 MG/ML SYG IV PRN (21:00)
[2017-01-24] MEDS: MICONAZOLE 100 MG VAG SUPP VAG SCH (22:09)
[2017-01-25] MEDS: ACCU-CHEK XX SCH (01:41)
[2017-01-25 07:57] VITALS: BP 134/64; RESP 18
[2017-01-25] MEDS: INSULIN ASPART [NOVOLOG] 3 ML PEN SC SCH ×4 (08:40→21:00)
[2017-01-25] MEDS: MEROPENEM 1 GM/50ML(PMX) 50 ML IVPB SCH ×2 (08:40→21:36)
[2017-01-25] MEDS: FAMOTIDINE 20 MG TAB PO SCH ×2 (08:41→21:38)
[2017-01-25] MEDS: ENOXAPARIN 30 MG/0.3 ML SYG SC SCH (08:59)
--- NOTE | 2017-01-25 14:23 | PN ---
Date/Time of Note Date/Time of Note DATE: 01/25/17 TIME: 14:20 Assessment/Plan VTE Prophylaxis VTE Prophylaxis Intervention: SCD's Lines/Catheters IV Catheter Type (from Nrs): PORT A CATH Urinary Cath still in place: Yes Reason Cath still needed: urinary retention Assessment/Plan Chief Complaint/Hosp Course Patient looks comfortable and denies any fever, tolerates diet well, completing antibiotic for urinary tract infection. Assessment/Plan - E coli ESBL urinary tract infection,continue meropenem - Recurrent/persistent ovarian cancer, status post secondary cytoreduction surgery. Continue IV fluids. 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 Pedroza. - DM with hemoglobin A1c 6.3. Continue NovoLog per mild algorithm sliding scale. Further recommendations based on clinical course. Plan of care of care discussed with Dr. Phelps Problems: Exam/Review of Systems Vital Signs Vitals Vital Signs Date Time Temp Pulse Resp B/P Pulse Ox O2 Delivery O2 Flow Rate FiO2 01/25/17 07:57 97.8 80 18 134/64 96 01/22/17 20:00 Room Air Intake and Output 01/24/17 01/24/17 01/25/17 15:00 23:00 07:00 Intake Total 50 ml 1250 ml 600 ml Output Total 1300 ml 1100 ml Balance 50 ml -50 ml -500 ml Exam Constitutional: alert Head: normocephalic Respiratory: normal air movement Cardiovascular: nl pulses Gastrointestinal: non-tender, other (s/p postsurgery), soft Genitourinary - Female: other (Preciado catheter) Extremities: normal pulses Results Result Diagram: 01/21/17 0557 01/21/17 0435 Results 24 hrs Laboratory Tests Test 01/24/17 17:50 01/24/17 21:59 01/25/17 08:45 01/25/17 12:44 Bedside Glucose 126 120 127 120 Medications Medications Current Medications Miscellaneous Information 1 ea NOTE XX ; Start 01/13/17 at 08:30 Glucose (Glutose) 15 gm Q15M PRN PO DECREASED GLUCOSE; Start 01/13/17 at 08:30 Glucose (Glutose) 22.5 gm Q15M PRN PO DECREASED GLUCOSE; Start 01/13/17 at 08: 30 Dextrose (D50w Syringe) 25 ml Q15M PRN IV DECREASED GLUCOSE; Start 01/13/17 at 08:30 Dextrose (D50w Syringe) 50 ml Q15M PRN IV DECREASED GLUCOSE; Start 01/13/17 at 08:30 Glucagon (Glucagen) 1 mg Q15M PRN IM DECREASED GLUCOSE; Start 01/13/17 at 08:30 Glucose (Glutose) 15 gm Q15M PRN BUCCAL DECREASED GLUCOSE; Start 01/13/17 at 08 :30 Diphenhydramine HCl (Benadryl) 25 mg Q6H PRN IV ITCHING; Start 01/13/17 at 19: 30 Ondansetron HCl 4 mg 4 mg Q6H PRN IV NAUSEA AND/OR VOMITING Last administered on 01/19/17 23:44; Admin Dose 4 MG; Start 01/13/17 at 19:30 Acetaminophen (Ofirmev 1000mg/ 100ml Iv) 100 ml @ 400 mls/hr Q6H PRN IVPB fever Last administered on 01/22/17 09:13; Admin Dose 400 MLS/HR; Start at 23:00 Enoxaparin Sodium (Lovenox) 30 mg DAILY SC Last administered on 01/25/17 08: 59; Admin Dose 30 MG; Start 01/16/17 at 10:00 Phenol (Chloraseptic Throat [place]) 2 spray Q2H PRN MT SORE THROAT Last administered on 01/16/17 14:07; Admin Dose 2 SPRAY; Start 01/16/17 at 13:30 Diagnostic Test (Pha) 1 ea 1 ea 02 XX ; Start 01/20/17 at 02:00 Meropenem/Sodium Chloride (Merrem 1 Gm/50 ml (Pmx)) 50 ml @ 100 mls/hr Q12 IVPB Last administered on 01/25/17 08:40; Admin Dose 100 MLS/HR; Start 01/19 at 21:00; Stop 01/26/17 at 20:59 Miconazole (Monistat-7) 1 supp HS VAG Last administered on 01/24/17 22:09; Admin Dose 1 SUPP; Start 01/20/17 at 21:00; Stop 01/26/17 at 21:01 Famotidine (Pepcid) 20 mg Q12 PO Last administered on 01/25/17 08:41; Admin Dose 20 MG; Start 01/23/17 at 21:00 Hydromorphone HCl (Dilaudid) 0.5 mg Q4H PRN IV PAIN LEVEL 6-10; Start at 21:00 Acetaminophen/ Hydrocodone Bitart ([place] (5/325)) 1 tab Q4H PRN PO PAIN LEVEL 4 -6; Start 01/24/17 at 20:30 MATHIEU WALSH Jan 25, 2017 14:23
[2017-01-25 14:44] VITALS: BP 143/66; RESP 18
[2017-01-25 19:30] VITALS: BP 130/63; RESP 16
[2017-01-25] MEDS: MICONAZOLE 100 MG VAG SUPP VAG SCH (21:38)
[2017-01-25 23:57] VITALS: BP 118/63; RESP 16
[2017-01-26] MEDS: HYDROCODONE/APAP (5/325) TAB PO PRN ×3 (01:18→12:23)
[2017-01-26] MEDS: ACCU-CHEK XX SCH (01:33)
[2017-01-26 01:49] VITALS: BP 143/61; RESP 16
[2017-01-26 05:41] LABS: BASOPHIL # 0.1 10^3/ul (0.0-0.1); BASOPHILS % 0.8 % (0.0-2.0); EOSINOPHILS # 0.2 10^3/ul (0.0-0.5); EOSINOPHILS % 3.1 % (0.0-7.0); HEMATOCRIT 33.1 % (37.0-47.0); HEMOGLOBIN 10.8 g/dl (12.0-16.0); LYMPHOCYTES # 1.8 10^3/ul (0.8-2.9); LYMPHOCYTES % 24.1 % (15.0-51.0); MEAN CORPUSCULAR HEMOGLOBIN 27.4 pg (29.0-33.0); MEAN CORPUSCULAR HGB CONC 32.6 g/dl (32.0-37.0); MEAN PLATELET VOLUME 9.9 fl (7.4-10.4); MONOCYTE # 0.6 10^3/ul (0.3-0.9); NEUTROPHIL # 4.7 10^3/ul (1.6-7.5); NEUTROPHILS % 63.5 % (39.0-77.0); PLATELET COUNT 519 10^3/UL (140-415); RED BLOOD COUNT 3.94 10^6/ul (4.20-5.40); WHITE BLOOD COUNT 7.4 10^3/ul (4.8-10.8)
[2017-01-26 06:52] LABS: CALCIUM 9.4 mg/dl (8.4-10.2); CREATININE 0.53 mg/dl (0.44-1.00); POTASSIUM 3.7 mmol/L (3.5-5.1)
[2017-01-26 07:00] VITALS: BP 131/62; RESP 18
--- NOTE | 2017-01-26 07:12 | PN ---
DATE: 01/25/2017 MEDICAL ONCOLOGY FOLLOWUP SUBJECTIVE: The patient states that she is feeling well except for her lack of appetite. She does not complain of abdominal pain. She has not had nausea or vomiting. The patient does state that she had 2 bowel movements today. OBJECTIVE: GENERAL: The patient is a well-developed, well-nourished female who is in no acute distress. VITAL SIGNS: Temperature 98.1, pulse 86 per minute and regular, respirations 16, blood pressure 130 /63, pulse oximetry is 96% on room air. SKIN: No ecchymoses. No petechiae or rashes. HEENT: Normocephalic. No evidence of trauma. Pupils equal, round, react to light and accommodatio n. There is no scleral icterus. Oral mucosa is moist without lesions. NECK: Supple. No jugular venous distention or thyroid enlargement. CHEST: Clear to auscultation and percussion. No rhonchi, wheezes, rales or rubs. There are some d ecreased breath sounds in both bases. HEART: Regular sinus rhythm. No S3, S4 or murmurs. No rubs. ABDOMEN: Soft. No masses, no ascites. Bowel sounds are quiet. EXTREMITIES: Good range of motion. No clubbing, edema or cyanosis. No palpable cords or Homans si gn. NEUROLOGIC: Normal. LABORATORY DATA: Review of the patient's intake and output reveals that the patient's oral intake i s decreased considerably over the past 4 or 5 days. It is recorded that the patient had 2210 mL ora lly on 01/22/2017, and only 800 mL in the past 12 hours. There has not been any emesis. ASSESSMENT: Recurrent ovarian carcinoma, status post cytoreductive surgery. DISCUSSION: Patient is awaiting initiation of chemotherapy. It is not clear what agents Dr. Vitaly mariscal has decided upon. As previously noted, the patient did have recurrence within 6 months of compl eting her last course of [place]-containing chemotherapy. Awaiting the results of BRCA mutation. This will help to determine whether the patient may be eligi ble for a PARP inhibitor. Dictated By: DAVID MESA MD SR/NTS Conf#: [id number] DID#: [id number] CC: JEFF PALOMINO MD;*End*
[2017-01-26] MEDS: INSULIN ASPART [NOVOLOG] 3 ML PEN SC SCH ×4 (07:50→21:00)
[2017-01-26] MEDS: FAMOTIDINE 20 MG TAB PO SCH ×2 (08:47→22:29)
[2017-01-26] MEDS: MEROPENEM 1 GM/50ML(PMX) 50 ML IVPB SCH (08:47)
[2017-01-26] MEDS: ENOXAPARIN 30 MG/0.3 ML SYG SC SCH (08:51)
--- NOTE | 2017-01-26 13:21 | PN ---
Date/Time of Note Date/Time of Note DATE: 01/26/17 TIME: 13:20 Assessment/Plan VTE Prophylaxis VTE Prophylaxis Intervention: SCD's Lines/Catheters IV Catheter Type (from Nrs): PORTACATH Urinary Cath still in place: Yes Reason Cath still needed: urinary retention Assessment/Plan Chief Complaint/Hosp Course Patient complains of occasional pain, no fever. Assessment/Plan - E coli ESBL urinary tract infection,continue meropenem - Recurrent/persistent ovarian cancer, status post secondary cytoreduction surgery. Continue IV fluids. 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 Pedroza. - DM with hemoglobin A1c 6.3. Continue NovoLog per mild algorithm sliding scale. Further recommendations based on clinical course. Plan of care of care discussed with Dr. Phelps Problems: Exam/Review of Systems Vital Signs Vitals Vital Signs Date Time Temp Pulse Resp B/P Pulse Ox O2 Delivery O2 Flow Rate FiO2 01/26/17 07:00 98.3 82 18 131/62 98 01/22/17 20:00 Room Air Intake and Output 01/25/17 01/25/17 01/26/17 15:00 23:00 07:00 Intake Total 50 ml 850 ml 740 ml Output Total 650 ml 800 ml Balance 50 ml 200 ml -60 ml Exam Constitutional: alert Head: normocephalic Respiratory: normal air movement Cardiovascular: nl pulses Gastrointestinal: non-tender, other (s/p postsurgery), soft Genitourinary - Female: other (Preciado catheter) Extremities: normal pulses Results Result Diagram: 01/26/17 0431 01/26/17 0431 Results 24 hrs Laboratory Tests Test 01/25/17 17:32 01/25/17 21:34 01/26/17 04:31 01/26/17 08:46 Bedside Glucose 135 137 125 White Blood Count 7.4 Red Blood Count 3.94 L Hemoglobin 10.8 L Hematocrit 33.1 L Mean Corpuscular Volume 84.0 Mean Corpuscular Hemoglobin 27.4 L Mean Corpuscular Hemoglobin Concent 32.6 Red Cell Distribution Width 15.0 H Platelet Count 519 #H Mean Platelet Volume 9.9 Neutrophils % 63.5 Lymphocytes % 24.1 Monocytes % 8.0 Eosinophils % 3.1 Basophils % 0.8 Nucleated Red Blood Cells % 0.0 Neutrophils # 4.7 Lymphocytes # 1.8 Monocytes # 0.6 Eosinophils # 0.2 Basophils # 0.1 Nucleated Red Blood Cells # 0.0 Sodium Level 141 Potassium Level 3.7 Chloride Level 104 Carbon Dioxide Level 28 Anion Gap 13 Blood Urea Nitrogen 16 Creatinine 0.53 Glucose Level 114 Calcium Level 9.4 Test 01/26/17 12:22 Bedside Glucose 157 Medications Medications Current Medications Miscellaneous Information 1 ea NOTE XX ; Start 01/13/17 at 08:30 Glucose (Glutose) 15 gm Q15M PRN PO DECREASED GLUCOSE; Start 01/13/17 at 08:30 Glucose (Glutose) 22.5 gm Q15M PRN PO DECREASED GLUCOSE; Start 01/13/17 at 08: 30 Dextrose (D50w Syringe) 25 ml Q15M PRN IV DECREASED GLUCOSE; Start 01/13/17 at 08:30 Dextrose (D50w Syringe) 50 ml Q15M PRN IV DECREASED GLUCOSE; Start 01/13/17 at 08:30 Glucagon (Glucagen) 1 mg Q15M PRN IM DECREASED GLUCOSE; Start 01/13/17 at 08:30 Glucose (Glutose) 15 gm Q15M PRN BUCCAL DECREASED GLUCOSE; Start 01/13/17 at 08 :30 Diphenhydramine HCl (Benadryl) 25 mg Q6H PRN IV ITCHING; Start 01/13/17 at 19: 30 Ondansetron HCl 4 mg 4 mg Q6H PRN IV NAUSEA AND/OR VOMITING Last administered on 01/19/17 23:44; Admin Dose 4 MG; Start 01/13/17 at 19:30 Acetaminophen (Ofirmev 1000mg/ 100ml Iv) 100 ml @ 400 mls/hr Q6H PRN IVPB fever Last administered on 01/22/17 09:13; Admin Dose 400 MLS/HR; Start at 23:00 Enoxaparin Sodium (Lovenox) 30 mg DAILY SC Last administered on 01/26/17 08: 51; Admin Dose 30 MG; Start 01/16/17 at 10:00 Phenol (Chloraseptic Throat [place]) 2 spray Q2H PRN MT SORE THROAT Last administered on 01/16/17 14:07; Admin Dose 2 SPRAY; Start 01/16/17 at 13:30 Diagnostic Test (Pha) 1 ea 1 ea 02 XX ; Start 01/20/17 at 02:00 Meropenem/Sodium Chloride (Merrem 1 Gm/50 ml (Pmx)) 50 ml @ 100 mls/hr Q12 IVPB Last administered on 01/26/17 08:47; Admin Dose 100 MLS/HR; Start 01/19 at 21:00; Stop 01/26/17 at 20:59 Miconazole (Monistat-7) 1 supp HS VAG Last administered on 01/25/17 21:38; Admin Dose 1 SUPP; Start 01/20/17 at 21:00; Stop 01/26/17 at 21:01 Famotidine (Pepcid) 20 mg Q12 PO Last administered on 01/26/17 08:47; Admin Dose 20 MG; Start 01/23/17 at 21:00 Hydromorphone HCl (Dilaudid) 0.5 mg Q4H PRN IV PAIN LEVEL 6-10 Last administered on 01/26/17 08:57; Admin Dose 0.5 MG; Start 01/24/17 at 21:00 Acetaminophen/ Hydrocodone Bitart ([place] (5/325)) 1 tab Q4H PRN PO PAIN LEVEL 4 -6 Last administered on 01/26/17 12:23; Admin Dose 1 TAB; Start 01/24/17 at 20:30 MATHIEU WALSH Jan 26, 2017 13:21
[2017-01-26 19:50] VITALS: BP 148/64; RESP 17
--- NOTE | 2017-01-26 20:09 | PN ---
Date/Time of Note Date/Time of Note DATE: 01/26/17 TIME: 20:02 Assessment/Plan VTE Prophylaxis VTE Prophylaxis Intervention: LMWH Lines/Catheters IV Catheter Type (from Nrs): PORTACATH Urinary Cath still in place: Yes Reason Cath still needed: other (indicate) Assessment/Plan Chief Complaint/Hosp Course recurrent ovarian cancer Problems: Assessment/Plan A- stable and awaits chemo P- will discuss with Dr. Jeff. Subjective 24 Hr Interval Summary Free Text/Dictation Comfortable and lake diet and OOB more. Exam/Review of Systems Vital Signs Vitals Vital Signs Date Time Temp Pulse Resp B/P Pulse Ox O2 Delivery O2 Flow Rate FiO2 01/26/17 07:00 98.3 82 18 131/62 98 01/22/17 20:00 Room Air Intake and Output 01/25/17 01/25/17 01/26/17 15:00 23:00 07:00 Intake Total 50 ml 850 ml 740 ml Output Total 650 ml 800 ml Balance 50 ml 200 ml -60 ml Exam Resp - clear CVS- NSR Abd- NT Ext- NT Results Result Diagram: 01/26/17 0431 01/26/17 0431 Results 24 hrs Laboratory Tests Test 01/25/17 21:34 01/26/17 04:31 01/26/17 08:46 01/26/17 12:22 Bedside Glucose 137 125 157 White Blood Count 7.4 Red Blood Count 3.94 L Hemoglobin 10.8 L Hematocrit 33.1 L Mean Corpuscular Volume 84.0 Mean Corpuscular Hemoglobin 27.4 L Mean Corpuscular Hemoglobin Concent 32.6 Red Cell Distribution Width 15.0 H Platelet Count 519 #H Mean Platelet Volume 9.9 Neutrophils % 63.5 Lymphocytes % 24.1 Monocytes % 8.0 Eosinophils % 3.1 Basophils % 0.8 Nucleated Red Blood Cells % 0.0 Neutrophils # 4.7 Lymphocytes # 1.8 Monocytes # 0.6 Eosinophils # 0.2 Basophils # 0.1 Nucleated Red Blood Cells # 0.0 Sodium Level 141 Potassium Level 3.7 Chloride Level 104 Carbon Dioxide Level 28 Anion Gap 13 Blood Urea Nitrogen 16 Creatinine 0.53 Glucose Level 114 Calcium Level 9.4 Test 01/26/17 17:20 Bedside Glucose 131 Medications Medications Current Medications Miscellaneous Information 1 ea NOTE XX ; Start 01/13/17 at 08:30 Glucose (Glutose) 15 gm Q15M PRN PO DECREASED GLUCOSE; Start 01/13/17 at 08:30 Glucose (Glutose) 22.5 gm Q15M PRN PO DECREASED GLUCOSE; Start 01/13/17 at 08: 30 Dextrose (D50w Syringe) 25 ml Q15M PRN IV DECREASED GLUCOSE; Start 01/13/17 at 08:30 Dextrose (D50w Syringe) 50 ml Q15M PRN IV DECREASED GLUCOSE; Start 01/13/17 at 08:30 Glucagon (Glucagen) 1 mg Q15M PRN IM DECREASED GLUCOSE; Start 01/13/17 at 08:30 Glucose (Glutose) 15 gm Q15M PRN BUCCAL DECREASED GLUCOSE; Start 01/13/17 at 08 :30 Diphenhydramine HCl (Benadryl) 25 mg Q6H PRN IV ITCHING; Start 01/13/17 at 19: 30 Ondansetron HCl 4 mg 4 mg Q6H PRN IV NAUSEA AND/OR VOMITING Last administered on 01/19/17 23:44; Admin Dose 4 MG; Start 01/13/17 at 19:30 Acetaminophen (Ofirmev 1000mg/ 100ml Iv) 100 ml @ 400 mls/hr Q6H PRN IVPB fever Last administered on 01/22/17 09:13; Admin Dose 400 MLS/HR; Start at 23:00 Enoxaparin Sodium (Lovenox) 30 mg DAILY SC Last administered on 01/26/17 08: 51; Admin Dose 30 MG; Start 01/16/17 at 10:00 Phenol (Chloraseptic Throat [place]) 2 spray Q2H PRN MT SORE THROAT Last administered on 01/16/17 14:07; Admin Dose 2 SPRAY; Start 01/16/17 at 13:30 Diagnostic Test (Pha) 1 ea 1 ea 02 XX ; Start 01/20/17 at 02:00 Meropenem/Sodium Chloride (Merrem 1 Gm/50 ml (Pmx)) 50 ml @ 100 mls/hr Q12 IVPB Last administered on 01/26/17 08:47; Admin Dose 100 MLS/HR; Start 01/19 at 21:00; Stop 01/26/17 at 20:59 Miconazole (Monistat-7) 1 supp HS VAG Last administered on 01/25/17 21:38; Admin Dose 1 SUPP; Start 01/20/17 at 21:00; Stop 01/26/17 at 21:01 Famotidine (Pepcid) 20 mg Q12 PO Last administered on 01/26/17 08:47; Admin Dose 20 MG; Start 01/23/17 at 21:00 Hydromorphone HCl (Dilaudid) 0.5 mg Q4H PRN IV PAIN LEVEL 6-10 Last administered on 01/26/17 08:57; Admin Dose 0.5 MG; Start 01/24/17 at 21:00 Acetaminophen/ Hydrocodone Bitart ([place] (5/325)) 1 tab Q4H PRN PO PAIN LEVEL 4 -6 Last administered on 01/26/17 12:23; Admin Dose 1 TAB; Start 01/24/17 at 20:30 JEFF PALOMINO MD Jan 26, 2017 20:09
--- NOTE | 2017-01-26 21:58 | PN ---
DATE: 01/26/2017 SUBJECTIVE: The patient states that she feels well. Still has a poor appetite. She has not had an y nausea or vomiting. States she did have a severe right-sided abdominal pain yesterday evening, which radiated to the rig ht flank. This was not associated with nausea or vomiting. The pain has since abated. OBJECTIVE: GENERAL: The patient is a well-developed, well-nourished female in no acute distress. VITAL SIGNS: Temperature 99.3, pulse 85, respirations 17, blood pressure 148/64 and pulse oximetry 97% on room air. SKIN: No ecchymosis, no petechiae or rashes. HEENT: No mucosal lesions. No scleral icterus. NECK: Supple, no jugular venous distention or thyroid enlargement. CHEST: Clear to auscultation and percussion. No rhonchi, wheezes, rales or rubs. HEART: Regular sinus rhythm, no S3, S4, murmurs. No rubs. ABDOMEN: Soft. There are no masses or ascites. Bowel sounds are active. There is a midline recen t surgical incision which seems to be healing well. EXTREMITIES: Good range of motion, no clubbing, edema or cyanosis. No palpable cords or Homans sig n. LABORATORY: White count today is 7400, hemoglobin 10.4, hematocrit 33.1 and platelet count 519,000. Sodium 141, potassium 3.4, creatinine 0.53, BUN 16. ASSESSMENT: Recurrent ovarian carcinoma, status post cytoreductive surgery. DISCUSSION: The patient has been encouraged to ambulate. The patient states she did not ambulate today because she became dizzy after being given hydrocodone with acetaminophen. As previously noted, still awaiting BRCA testing. Dictated By: DAVID MESA MD SR/NTS Conf#: [id number] DID#: [id number]
[2017-01-26] MEDS: MICONAZOLE 100 MG VAG SUPP VAG SCH (22:29)
[2017-01-27] MEDS: ACCU-CHEK XX SCH (02:00)
[2017-01-27 02:11] VITALS: BP 142/66; RESP 19
[2017-01-27 02:30] VITALS: BP 139/69; RESP 20
[2017-01-27 05:14] LABS: BASOPHIL # 0.1 10^3/ul (0.0-0.1); BASOPHILS % 0.7 % (0.0-2.0); EOSINOPHILS # 0.2 10^3/ul (0.0-0.5); EOSINOPHILS % 2.6 % (0.0-7.0); HEMATOCRIT 33.3 % (37.0-47.0); LYMPHOCYTES # 1.3 10^3/ul (0.8-2.9); LYMPHOCYTES % 18.9 % (15.0-51.0); MEAN CORPUSCULAR VOLUME 84.7 fl (82.0-101.0); MEAN PLATELET VOLUME 9.7 fl (7.4-10.4); MONOCYTE # 0.5 10^3/ul (0.3-0.9); NEUTROPHIL # 4.8 10^3/ul (1.6-7.5); NEUTROPHILS % 70.2 % (39.0-77.0); PLATELET COUNT 515 10^3/UL (140-415); RED BLOOD COUNT 3.93 10^6/ul (4.20-5.40); RED CELL DISTRIBUTION WIDTH 14.7 % (11.5-14.5); WHITE BLOOD COUNT 6.8 10^3/ul (4.8-10.8)
[2017-01-27 05:58] LABS: CALCIUM 9.1 mg/dl (8.4-10.2); CREATININE 0.61 mg/dl (0.44-1.00); POTASSIUM 4.2 mmol/L (3.5-5.1)
[2017-01-27 07:00] VITALS: BP 134/61; RESP 20
[2017-01-27] MEDS: INSULIN ASPART [NOVOLOG] 3 ML PEN SC SCH ×4 (07:50→20:38)
[2017-01-27] MEDS: FAMOTIDINE 20 MG TAB PO SCH ×2 (08:32→20:33)
[2017-01-27] MEDS: ENOXAPARIN 30 MG/0.3 ML SYG SC SCH (08:37)
[2017-01-27 14:00] VITALS: BP 145/64; RESP 20
--- NOTE | 2017-01-27 14:02 | PN ---
Date/Time of Note Date/Time of Note DATE: 01/27/17 TIME: 14:02 Assessment/Plan VTE Prophylaxis VTE Prophylaxis Intervention: SCD's Lines/Catheters IV Catheter Type (from Nrs): PORTACATH Urinary Cath still in place: Yes Reason Cath still needed: urinary retention Assessment/Plan Chief Complaint/Hosp Course Assessment/Plan - E coli ESBL urinary tract infection,completed meropenem - Recurrent/persistent ovarian cancer, status post secondary cytoreduction surgery. Continue IV fluids. 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 Pedroza. - DM with hemoglobin A1c 6.3. Continue NovoLog per mild algorithm sliding scale. Further recommendations based on clinical course. Plan of care of care discussed with Dr. Phelps Problems: Exam/Review of Systems Vital Signs Vitals Vital Signs Date Time Temp Pulse Resp B/P Pulse Ox O2 Delivery O2 Flow Rate FiO2 01/27/17 07:00 99.0 83 20 134/61 96 Intake and Output 01/26/17 01/26/17 01/27/17 15:00 23:00 07:00 Intake Total 50 ml 1040 ml 650 ml Output Total 500 ml 1100 ml Balance 50 ml 540 ml -450 ml Exam Constitutional: alert Head: normocephalic Respiratory: normal air movement Cardiovascular: nl pulses Gastrointestinal: non-tender, other (s/p postsurgery), soft Genitourinary - Female: other ([place] catheter) Extremities: normal pulses Results Result Diagram: 01/27/17 0447 01/27/17446 Results 24 hrs Laboratory Tests Test 01/26/17 17:20 01/26/17 22:27 01/27/17 04:47 01/27/17 08:32 Bedside Glucose 131 118 133 White Blood Count 6.8 Red Blood Count 3.93 L Hemoglobin 11.0 L Hematocrit 33.3 L Mean Corpuscular Volume 84.7 Mean Corpuscular Hemoglobin 28.0 L Mean Corpuscular Hemoglobin Concent 33.0 Red Cell Distribution Width 14.7 H Platelet Count 515 H Mean Platelet Volume 9.7 Neutrophils % 70.2 Lymphocytes % 18.9 Monocytes % 7.0 Eosinophils % 2.6 Basophils % 0.7 Nucleated Red Blood Cells % 0.0 Neutrophils # 4.8 Lymphocytes # 1.3 Monocytes # 0.5 Eosinophils # 0.2 Basophils # 0.1 Nucleated Red Blood Cells # 0.0 Sodium Level 140 Potassium Level 4.2 Chloride Level 105 Carbon Dioxide Level 27 Anion Gap 12 Blood Urea Nitrogen 15 Creatinine 0.61 Glucose Level 135 Calcium Level 9.1 Test 01/27/17 12:20 Bedside Glucose 114 Medications Medications Current Medications Miscellaneous Information 1 ea NOTE XX ; Start 01/13/17 at 08:30 Glucose (Glutose) 15 gm Q15M PRN PO DECREASED GLUCOSE; Start 01/13/17 at 08:30 Glucose (Glutose) 22.5 gm Q15M PRN PO DECREASED GLUCOSE; Start 01/13/17 at 08: 30 Dextrose (D50w Syringe) 25 ml Q15M PRN IV DECREASED GLUCOSE; Start 01/13/17 at 08:30 Dextrose (D50w Syringe) 50 ml Q15M PRN IV DECREASED GLUCOSE; Start 01/13/17 at 08:30 Glucagon (Glucagen) 1 mg Q15M PRN IM DECREASED GLUCOSE; Start 01/13/17 at 08:30 Glucose (Glutose) 15 gm Q15M PRN BUCCAL DECREASED GLUCOSE; Start 01/13/17 at 08 :30 Diphenhydramine HCl (Benadryl) 25 mg Q6H PRN IV ITCHING; Start 01/13/17 at 19: 30 Ondansetron HCl 4 mg 4 mg Q6H PRN IV NAUSEA AND/OR VOMITING Last administered on 01/19/17 23:44; Admin Dose 4 MG; Start 01/13/17 at 19:30 Acetaminophen (Ofirmev 1000mg/ 100ml Iv) 100 ml @ 400 mls/hr Q6H PRN IVPB fever Last administered on 01/22/17 09:13; Admin Dose 400 MLS/HR; Start at 23:00 Enoxaparin Sodium (Lovenox) 30 mg DAILY SC Last administered on 01/27/17 08: 37; Admin Dose 30 MG; Start 01/16/17 at 10:00 Phenol (Chloraseptic Throat [place]) 2 spray Q2H PRN MT SORE THROAT Last administered on 01/16/17 14:07; Admin Dose 2 SPRAY; Start 01/16/17 at 13:30 Diagnostic Test (Pha) (Accu-Chek) 1 ea 02 XX ; Start 10/11/17 at 02:00 Famotidine (Pepcid) 20 mg Q12 PO Last administered on 01/27/17 08:32; Admin Dose 20 MG; Start 01/23/17 at 21:00 Hydromorphone HCl (Dilaudid) 0.5 mg Q4H PRN IV PAIN LEVEL 6-10 Last administered on 01/26/17 08:57; Admin Dose 0.5 MG; Start 01/24/17 at 21:00 Acetaminophen/ Hydrocodone Bitart ([place] (5/325)) 1 tab Q4H PRN PO PAIN LEVEL 4 -6 Last administered on 01/26/17 12:23; Admin Dose 1 TAB; Start 01/24/17 at 20:30 MATHIEU WALSH Jan 27, 2017 14:02
--- NOTE | 2017-01-27 16:30 | PN ---
Date/Time of Note Date/Time of Note DATE: 01/27/17 TIME: 16:27 Assessment/Plan VTE Prophylaxis VTE Prophylaxis Intervention: ambulation Lines/Catheters IV [facility] (from [facility]): PORTACATH Urinary Cath still in place: Yes Reason Cath still needed: other (indicate) (surgery) Assessment/Plan Chief Complaint/Hosp Course 61 yo woman known to me. She has known ovarian cancer and Oct 4 had another surgery. She had a second look earlier this year and was going to get adjuvant chemotherapy but she progressed quickly and it was not started. 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 She is just starting oral intake. I spoke to pathologist and asked a BRCA study to be sent. This may be helpful in choosing her future chemotherapy regimen. For now continue current post op care and anticipate starting chemotherapy when she is ambulatory. Problems: Assessment/Plan Discussed last night with Dr. Hayes and today with Dr. Meade. Pt is ready for chemotherapy but insurance would not cover her until she is discharged. I asked her to arrange an appointment for next week to begin treatment since I anticipate that she will be discharged tomorrow or soon thereafter. [place]?carbo will start and the results of the BRCA test may influence choices after that. Subjective 24 Hr Interval Summary Free Text/Dictation Pt is awake and comfortable. Exam/Review of Systems Vital Signs Vitals Vital Signs Date Time Temp Pulse Resp B/P Pulse Ox O2 Delivery O2 Flow Rate FiO2 01/27/17 14:00 98.7 82 20 145/64 97 Intake and Output 01/26/17 01/26/17 01/27/17 15:00 23:00 07:00 Intake Total 50 ml 1040 ml 650 ml Output Total 500 ml 1100 ml Balance 50 ml 540 ml -450 ml Exam Constitutional: alert, oriented Head: normocephalic Eyes: nl conjunctiva Neck: supple Respiratory: clear to auscultation Cardiovascular: regular rate and rhythm Gastrointestinal: soft Results Result Diagram: 01/27/17 0447 01/27/17446 Results 24 hrs Laboratory Tests Test 01/26/17 17:20 01/26/17 22:27 01/27/17 04:47 01/27/17 08:32 Bedside Glucose 131 118 133 White Blood Count 6.8 Red Blood Count 3.93 L Hemoglobin 11.0 L Hematocrit 33.3 L Mean Corpuscular Volume 84.7 Mean Corpuscular Hemoglobin 28.0 L Mean Corpuscular Hemoglobin Concent 33.0 Red Cell Distribution Width 14.7 H Platelet Count 515 H Mean Platelet Volume 9.7 Neutrophils % 70.2 Lymphocytes % 18.9 Monocytes % 7.0 Eosinophils % 2.6 Basophils % 0.7 Nucleated Red Blood Cells % 0.0 Neutrophils # 4.8 Lymphocytes # 1.3 Monocytes # 0.5 Eosinophils # 0.2 Basophils # 0.1 Nucleated Red Blood Cells # 0.0 Sodium Level 140 Potassium Level 4.2 Chloride Level 105 Carbon Dioxide Level 27 Anion Gap 12 Blood Urea Nitrogen 15 Creatinine 0.61 Glucose Level 135 Calcium Level 9.1 Test 01/27/17 12:20 Bedside Glucose 114 Medications Medications Current Medications Miscellaneous Information 1 ea NOTE XX ; Start 01/13/17 at 08:30 Glucose (Glutose) 15 gm Q15M PRN PO DECREASED GLUCOSE; Start 01/13/17 at 08:30 Glucose (Glutose) 22.5 gm Q15M PRN PO DECREASED GLUCOSE; Start 01/13/17 at 08: 30 Dextrose (D50w Syringe) 25 ml Q15M PRN IV DECREASED GLUCOSE; Start 01/13/17 at 08:30 Dextrose (D50w Syringe) 50 ml Q15M PRN IV DECREASED GLUCOSE; Start 01/13/17 at 08:30 Glucagon (Glucagen) 1 mg Q15M PRN IM DECREASED GLUCOSE; Start 01/13/17 at 08:30 Glucose (Glutose) 15 gm Q15M PRN BUCCAL DECREASED GLUCOSE; Start 01/13/17 at 08 :30 Diphenhydramine HCl (Benadryl) 25 mg Q6H PRN IV ITCHING; Start 01/13/17 at 19: 30 Ondansetron HCl 4 mg 4 mg Q6H PRN IV NAUSEA AND/OR VOMITING Last administered on 01/19/17 23:44; Admin Dose 4 MG; Start 01/13/17 at 19:30 Acetaminophen (Ofirmev 1000mg/ 100ml Iv) 100 ml @ 400 mls/hr Q6H PRN IVPB fever Last administered on 01/22/17 09:13; Admin Dose 400 MLS/HR; Start at 23:00 Enoxaparin Sodium (Lovenox) 30 mg DAILY SC Last administered on 01/27/17 08: 37; Admin Dose 30 MG; Start 01/16/17 at 10:00 Phenol (Chloraseptic Throat Fred) 2 spray Q2H PRN MT SORE THROAT Last administered on 01/16/17 14:07; Admin Dose 2 SPRAY; Start 01/16/17 at 13:30 Diagnostic Test (Pha) (Accu-Chek) 1 ea 02 XX ; Start 01/20/17 at 02:00 Famotidine (Pepcid) 20 mg Q12 PO Last administered on 01/27/17 08:32; Admin Dose 20 MG; Start 01/23/17 at 21:00 Hydromorphone HCl (Dilaudid) 0.5 mg Q4H PRN IV PAIN LEVEL 6-10 Last administered on 01/26/17 08:57; Admin Dose 0.5 MG; Start 01/24/17 at 21:00 Acetaminophen/ Hydrocodone Bitart ([place] (5/325)) 1 tab Q4H PRN PO PAIN LEVEL 4 -6 Last administered on 01/26/17 12:23; Admin Dose 1 TAB; Start 01/24/17 at 20:30 JANUARY SHARMA MD Jan 27, 2017 16:30
[2017-01-27 21:20] VITALS: BP 125/58; RESP 20
[2017-01-28] MEDS: HYDROCODONE/APAP (5/325) TAB PO PRN ×3 (00:32→17:52)
[2017-01-28] MEDS: ACCU-CHEK XX SCH (02:00)
[2017-01-28 02:54] VITALS: BP 132/64; RESP 20
[2017-01-28 07:28] VITALS: BP 136/62; PULSE 74; RESP 16
[2017-01-28] MEDS: INSULIN ASPART [NOVOLOG] 3 ML PEN SC SCH ×3 (07:50→17:55)
[2017-01-28] MEDS: ENOXAPARIN 30 MG/0.3 ML SYG SC SCH (09:07)
[2017-01-28] MEDS: FAMOTIDINE 20 MG TAB PO SCH (09:43)
[2017-01-28 11:27] VITALS: BP 130/80; PULSE 90; RESP 18
[2017-01-28 14:41] VITALS: BP 129/60; RESP 18
--- NOTE | 2017-01-28 14:52 | PN ---
Date/Time of Note Date/Time of Note DATE: 01/28/17 TIME: 14:50 Assessment/Plan VTE Prophylaxis VTE Prophylaxis Intervention: ambulation Lines/Catheters [facility] PORT A CATH Urinary Cath still in place: Yes Reason Cath still needed: other (indicate) (surgery) Assessment/Plan Chief Complaint/Hosp Course 61 yo woman known to me. She has known ovarian cancer and Oct 4 had another surgery. She had a second look earlier this year and was going to get adjuvant chemotherapy but she progressed quickly and it was not started. 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 She is just starting oral intake. I spoke to pathologist and asked a BRCA study to be sent. This may be helpful in choosing her future chemotherapy regimen. For now continue current post op care and anticipate starting chemotherapy when she is ambulatory. Problems: Assessment/Plan Pt awaiting discharge. I am arranging chemotherapy with her HMO. I hope to start as soon as it is authorized in my office. I reminded her to call and make an appointment. Subjective 24 Hr Interval Summary Free Text/Dictation cheerful and eating better Exam/Review of Systems Vital Signs Vitals Vital Signs Date Time Temp Pulse Resp B/P Pulse Ox O2 Delivery O2 Flow Rate FiO2 01/28/17 14:41 98.2 81 18 129/60 96 01/28/17 11:27 Room Air Intake and Output 01/27/17 01/27/17 01/28/17 15:00 23:00 07:00 Intake Total 1480 ml 1500 ml Output Total 750 ml 1700 ml Balance 730 ml -200 ml Exam Constitutional: alert, oriented Head: normocephalic Eyes: nl conjunctiva ENMT: nl external ears & nose Neck: supple Respiratory: clear to auscultation Cardiovascular: regular rate and rhythm Gastrointestinal: soft Results Result Diagram: 01/27/17 0447 01/27/17 0447 Results 24 hrs Laboratory Tests Test 01/27/17 17:17 01/27/17 20:38 01/28/17 08:44 01/28/17 12:54 Bedside Glucose 182 135 134 104 Medications Medications Current Medications Miscellaneous Information 1 ea NOTE XX ; Start 01/13/17 at 08:30 Glucose (Glutose) 15 gm Q15M PRN PO DECREASED GLUCOSE; Start 01/13/17 at 08:30 Glucose (Glutose) 22.5 gm Q15M PRN PO DECREASED GLUCOSE; Start 01/13/17 at 08: 30 Dextrose (D50w Syringe) 25 ml Q15M PRN IV DECREASED GLUCOSE; Start 01/13/17 at 08:30 Dextrose (D50w Syringe) 50 ml Q15M PRN IV DECREASED GLUCOSE; Start 01/13/17 at 08:30 Glucagon (Glucagen) 1 mg Q15M PRN IM DECREASED GLUCOSE; Start 01/13/17 at 08:30 Glucose (Glutose) 15 gm Q15M PRN BUCCAL DECREASED GLUCOSE; Start 01/13/17 at 08 :30 Diphenhydramine HCl (Benadryl) 25 mg Q6H PRN IV ITCHING; Start 01/13/17 at 19: 30 Ondansetron HCl 4 mg 4 mg Q6H PRN IV NAUSEA AND/OR VOMITING Last administered on 01/19/17 23:44; Admin Dose 4 MG; Start 01/13/17 at 19:30 Acetaminophen (Ofirmev 1000mg/ 100ml Iv) 100 ml @ 400 mls/hr Q6H PRN IVPB fever Last administered on 01/22/17 09:13; Admin Dose 400 MLS/HR; Start at 23:00 Enoxaparin Sodium (Lovenox) 30 mg DAILY SC Last administered on 01/28/17 09: 07; Admin Dose 30 MG; Start 01/16/17 at 10:00 Phenol (Chloraseptic Throat Eddy) 2 spray Q2H PRN MT SORE THROAT Last administered on 01/16/17 14:07; Admin Dose 2 SPRAY; Start 01/16/17 at 13:30 Diagnostic Test (Pha) (Accu-Chek) 1 ea 02 XX ; Start 01/20/17 at 02:00 Famotidine (Pepcid) 20 mg Q12 PO Last administered on 01/28/17 09:43; Admin Dose 20 MG; Start 01/23/17 at 21:00 Hydromorphone HCl (Dilaudid) 0.5 mg Q4H PRN IV PAIN LEVEL 6-10 Last administered on 01/26/17 08:57; Admin Dose 0.5 MG; Start 01/24/17 at 21:00 Acetaminophen/ Hydrocodone Bitart ([place] (5/325)) 1 tab Q4H PRN PO PAIN LEVEL 4 -6 Last administered on 01/28/17t 09:02; Admin Dose 1 TAB; Start 01/24/17 at 20:30 JANUARY SHARMA MD Jan 28, 2017 14:52
--- NOTE | 2017-01-28 15:02 | PDOCDIS ---
Discharge Instructions CONDITION Patient Condition: Stable HOME CARE INSTRUCTIONS: Special Diet: CARB CONTROLLED ACTIVITY: Activity Restrictions: Slowly Increase Activity Rest between Activity Avoid heavy lifting Do not Drive Do not operate Machinery Do not operate Power Tool Avoid Heavy Housework Bathing Restrictions: FOLLOW UP/APPOINTMENTS Follow-up Plan FU with Primary x 1 week FU with surgery as recommended. Patient is discharged home with Home Health services, will go home with FC. FU Dr Hayes and Dr Jeff Call 911 or go to the nearest hospital if symptoms get worse. Patient and family verbalized understanding dc instructions. Dw Dr Ward/ staff YFN BRIAN Jan 28, 2017 15:02
[2017-01-28] MEDS ORDERED: DOCU-144 PO (15:15)
[2017-01-28] MEDS ORDERED: HYDR-3498 PO (15:15)
--- NOTE | 2017-01-28 15:23 | DS ---
Date/Time of Note Date/Time of Note DATE: 01/28/17 TIME: 15:23 Discharge Summary Admission/Discharge Info Admit Date/Time Jan 13, 2017 at 10:46 Discharge Date/Time Patient Condition: Stable Hospital Course - E coli ESBL urinary tract infection,completed meropenem - Recurrent/persistent ovarian cancer, status post secondary cytoreduction surgery. Continue IV fluids. 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 Pedroza. - DM with hemoglobin A1c 6.3. Continue NovoLog per mild algorithm sliding scale. Patient is discharged home with Home Health services, will go home with . FU Dr Hayes and Dr Jeff Discussed with Dr. Phelps Home Meds Active Scripts Docusate Sodium* (Colace*) 100 Mg Capsule, 100 MG PO BID, #30 CAP Prov:YFN BRIAN 01/28/17 Hydrocodone Bit-Acetaminophen (Hydrocodone Bit-APAP) 5-325MG Tablet, 1 TAB PO Q4H Y for PAIN LEVEL 4-6, #20 TAB Prov:YFN BRIAN 01/28/17 Reported Medications Atorvastatin Calcium* (Atorvastatin Calcium*) 20 Mg Tablet, 20 MG PO QHS, #30 TAB 01/13/17 Aspirin (Low Dose Aspirin) 81 Mg Tablet., 81 MG PO DAILY, #30 TAB 04/12/16 Lisinopril* (Lisinopril*) 5 Mg Tablet, 5 MG PO DAILY, #30 TAB 02/05/16 Omeprazole* (Omeprazole*) 20 Mg Capsule., 20 MG PO DAILY, #30 CAP 02/05/16 Follow-up Plan FU with Primary x 1 week FU with surgery as recommended. Call 911 or go to the nearest hospital if symptoms get worse. Patient and family verbalized understanding dc instructions. Dw Dr Ward/ staff Primary Care Provider Not On Staff Doctor Time spent on discharge: < 30 minutes Pending Labs Laboratory Tests Test 01/27/17 17:17 01/27/17 20:38 01/28/17 08:44 01/28/17 12:54 Bedside Glucose 182mg/dL (70-220) 135mg/dL (70-220) 134mg/dL (70-220) 104mg/dL (70-220) YFN BRIAN Jan 28, 2017 15:23
[2017-01-28] MEDS ORDERED: HEPARIN (100 UNITS/ML) 5 ML SYG CATHETER ONE (17:30)
== END 2017-01-28 18:25 | disposition home or self-care (01) | DRG 749 ==
LOC: REC 10:46 → MS1 22:40
PROC: 0TN70ZZ Release Left Ureter, Open Approach (ICD-10-PCS; 2017-01-13)
PROC: 0DTJ0ZZ Resection of Appendix, Open Approach (ICD-10-PCS; 2017-01-13)
PROC: 0TN60ZZ Release Right Ureter, Open Approach (ICD-10-PCS; 2017-01-13)
PROC: 05QM0ZZ Repair Right Internal Jugular Vein, Open Approach (ICD-10-PCS; 2017-01-13)
PROC: 0TQ60ZZ Repair Right Ureter, Open Approach (ICD-10-PCS; 2017-01-13)
PROC: 07BD0ZZ Excision of Aortic Lymphatic, Open Approach (ICD-10-PCS; 2017-01-13)
PROC: 07BC0ZZ Excision of Pelvis Lymphatic, Open Approach (ICD-10-PCS; 2017-01-13)
PROC: 0T760DZ Dilation of Right Ureter with Intraluminal Device, Open Approach (ICD-10-PCS; 2017-01-13)
PROC: 0TJB8ZZ Inspection of Bladder, Via Natural or Artificial Opening Endoscopic (ICD-10-PCS; 2017-01-13)
PROC: 0D5U0ZZ Destruction of Omentum, Open Approach (ICD-10-PCS; principal; 2017-01-13 13:00)
PROC: 03QH0ZZ Repair Right Common Carotid Artery, Open Approach (ICD-10-PCS; 2017-01-13 13:00)
DX: C56.9 Malignant neoplasm of unspecified ovary (principal); C77.5 Secondary and unspecified malignant neoplasm of intrapelvic lymph nodes; S15.01 Minor laceration of carotid artery; S15.3 Injury of internal jugular vein; N13.5 Crossing vessel and stricture of ureter without hydronephrosis; R13.10 Dysphagia, unspecified; N39.0 Urinary tract infection, site not specified; E11.9 Type 2 diabetes mellitus without complications; N73.6 Female pelvic peritoneal adhesions (postinfective); B96.20 Unspecified Escherichia coli [E. coli] as the cause of diseases classified elsewhere; Z79.4 Long term (current) use of insulin; L29.2 Pruritus vulvae
CPT/HCPCS: 71010; 74000; 80048; 80053; 81001; 82962; 83036; 85025; 85610; 86304; 86305; 86850; 86900; 86901; 86920; 87086; 88304; 88305; 88307; 88331; 94640; 94664; C2617; C9113; J0131; J0690; J1170; J1200; J1642; J1644; J1650; J1815; J2185; J2250; J2405; J2765; J2795; J3010; J3480; J7120

== ENCOUNTER 2017-02-03 15:19 | Inpatient (IN) | payer OTHER ==
[~2017-02-03] VITALS: Ht 162.6 cm; Wt 67.5 kg
[~2017-02-03 15:19] MED LIST changes: -ACETAMINOPHEN 1000 MG/100 ML IVPB ONE; -ATOR10TA65 PO; +ATOR20TA38 PO; -CITROMA PO; -DEXTROSE 50% 50 ML SYRINGE IV PRN; -DIPHENHYDRAMINE 50 MG INJ IV PRN; +DOCU-144 PO; -EPHEDrine SULFATE 50 MG/5 ML SYG IV PRN; -FENTAnyl 50 MCG/ML VIAL IV PRN; -FENTAnyl 50 MCG/ML VIAL ONE; -GLUCAGON 1 MG INJ IM PRN; -GLUCOSE GEL 15 GRAM TUBE BUCCAL PRN; -GLUCOSE GEL 15 GRAM TUBE PO PRN; +HYDR-3498 PO; -HYDROmorphONE (0.2 MG/ML) 10ML SYG IV PRN; -INSULIN ASPART [NOVOLOG] 3 ML PEN SC ONE; -LABETALOL HCL 20MG INJ IV PRN; -LIDOCAINE 2% (SDV) 5 ML INJ ONE; -MEPERIDINE 25 MG INJ IV PRN; -MIDAZOLAM 1 MG/ML 2 ML INJ ONE; -ONDANSETRON 4 MG INJ IV PRN; -PROCHLORPERAZINE 10 MG INJ IV PRN; -PROPOFOL 20 ML ONE; -SUCCINYLCHOLINE CHLORIDE 100 MG/5 ML SYG IV ONE; -hydrALAzine 20 MG INJ IV PRN
[2017-02-03 15:21] VITALS: Ht 162.6 cm; Wt 67.5 kg
[2017-02-03] MEDS ORDERED: SOD CHLORIDE 0.9% 1,000 ML IV STA (19:31)
[2017-02-03] MEDS ORDERED: KETOROLAC 15 MG INJ IV STA (19:31)
[2017-02-03] MEDS ORDERED: ONDANSETRON 4 MG INJ ONE (19:47)
[2017-02-03] MEDS ORDERED: ONDANSETRON 4 MG INJ IV STA (19:47)
[2017-02-03 19:48] LABS: BASOPHIL # 0.1 10^3/ul (0.0-0.1); BASOPHILS % 0.6 % (0.0-2.0); EOSINOPHILS % 0.4 % (0.0-7.0); HEMATOCRIT 33.3 % (37.0-47.0); HEMOGLOBIN 11.3 g/dl (12.0-16.0); LYMPHOCYTES # 0.8 10^3/ul (0.8-2.9); LYMPHOCYTES % 8.5 % (15.0-51.0); MEAN CORPUSCULAR HEMOGLOBIN 28.3 pg (29.0-33.0); MEAN CORPUSCULAR HGB CONC 33.9 g/dl (32.0-37.0); MEAN CORPUSCULAR VOLUME 83.5 fl (82.0-101.0); MEAN PLATELET VOLUME 9.2 fl (7.4-10.4); MONOCYTE # 0.5 10^3/ul (0.3-0.9); NEUTROPHIL # 7.5 10^3/ul (1.6-7.5); NEUTROPHILS % 84.1 % (39.0-77.0); PLATELET COUNT 321 10^3/UL (140-415); RED BLOOD COUNT 3.99 10^6/ul (4.20-5.40); RED CELL DISTRIBUTION WIDTH 13.7 % (11.5-14.5); WHITE BLOOD COUNT 8.9 10^3/ul (4.8-10.8)
--- NOTE | 2017-02-03 19:53 | ERD ---
ER Documentation Chief Complaint Chief Complaint CHEST PAIN WITH SOB, NAUSEA AND VOMITING. HAD SURGERY 01/13/17 HPI 61-year-old woman complains of sharp nonexertional nonradiating chest pain or shortness of breath 2 days. She has had similar episodes in the past but these symptoms have been associated with nausea and clear nonbloody nonbilious emesis. Patient has a recent history of total abdominal hysterectomy due to ovarian carcinoma. She uses oral analgesics daily. She denies fevers or chills , no cough, no calf or leg swelling. Her last dose of chemotherapy was back in July 2016. ROS All systems reviewed and are negative except as per history of present illness. Medications Home Meds Active Scripts Docusate Sodium* (Colace*) 100 Mg Capsule, 100 MG PO BID, #30 CAP Prov:YFN BRIAN 01/28/17 Reported Medications Hydrocodone/Acetaminophen ([place] 10-325 Tablet) 1 Each Tablet, 1 EACH PO Q4H, TAB 02/03/17 Atorvastatin Calcium* (Atorvastatin Calcium*) 20 Mg Tablet, 20 MG PO QHS, #30 TAB 01/13/17 Lisinopril* (Lisinopril*) 5 Mg Tablet, 5 MG PO DAILY, #30 TAB 02/05/16 Omeprazole* (Omeprazole*) 20 Mg Capsule.dr, 20 MG PO DAILY, #30 CAP 02/05/16 Discontinued Reported Medications Aspirin (Low Dose Aspirin) 81 Mg Tablet.dr, 81 MG PO DAILY, #30 TAB 04/12/16 Discontinued Scripts Hydrocodone Bit-Acetaminophen (Hydrocodone Bit-APAP) 5-325MG Tablet, 1 TAB PO Q4H Y for PAIN LEVEL 4-6, #20 TAB Prov:YFN BRIAN 01/28/17 Allergies Allergies: Coded Allergies: No Known Allergies (Unverified Allergy, Unknown, 02/03/17) PMhx/Soc Hypertension, dyslipidemia, diabetes mellitus, ovarian cancer status post total hysterectomy, CAD History of Surgery: Yes (HYSTERECTOMY, LAP ROBB, HERNIA, ) Anesthesia Reaction: No Hx Neurological Disorder: No Hx Respiratory Disorders: No Hx Cardiac Disorders: Yes (HTN, HLD) Hx Psychiatric Problems: No Hx Miscellaneous Medical Probl: Yes (OVARIAN CA) Hx Alcohol Use: No Hx Substance Use: No Hx Tobacco Use: No Smoking Status: Never smoker FmHx Family History: No diabetes Physical Exam Vitals Vital Signs Date Time Temp Pulse Resp B/P Pulse Ox O2 Delivery O2 Flow Rate FiO2 02/03/17 21:25 84 16 134/63 98 Room Air 02/03/17 15:21 98.0 85 16 129/60 99 Physical Exam GENERAL: Well-developed, well-nourished, well-hydrated, in no apparent distress , looks nontoxic in appearance HEENT: Moist mucous membranes, pink conjunctiva, no cervical spine tenderness or step-off deformities, no goiter, no jaundice or icterus, extraocular movements intact without pain. No submandibular induration, and no pharyngeal erythema NEURO: Alert and oriented 3, cranial nerves II through XII intact bilaterally, pupils equal round reactive to light, no focal deficits or facial asymmetry, sensation intact distally Strength 5/5 in upper and lower extremities bilaterally CARDIAC: Regular rate and rhythm, no murmurs rubs or gallops LUNGS: Clear bilaterally no wheezing crackles or stridor ABDOMEN: Well-healing surgical scar in the mid abdomen, skin is intact and dry, no guarding or rigidity or tenderness SKIN: Warm and dry to touch, no abrasions, contusions, or hematomas, no lacerations, no ecchymosis, no target lesions, and without ulcers EXTREMITIES: No clubbing cyanosis or edema, calves are bilaterally symmetrical, no Homans sign, no popliteal cord sign. Distal pulses equal and bilateral PSYCH: Normal affect without agitation or irritability Result Diagram: 02/03/17193702/03/171937 Results 24 hrs Laboratory Tests Test 02/03/17 19:38 White Blood Count 8.910^3/ul Red Blood Count 3.9910^6/ul Hemoglobin 11.3g/dl Hematocrit 33.3% Mean Corpuscular Volume 83.5fl Mean Corpuscular Hemoglobin 28.3pg Mean Corpuscular Hemoglobin Concent 33.9g/dl Red Cell Distribution Width 13.7% Platelet Count 67164^3/UL Mean Platelet Volume 9.2fl Neutrophils % 84.1% Lymphocytes % 8.5% Monocytes % 6.0% Eosinophils % 0.4% Basophils % 0.6% Nucleated Red Blood Cells % 0.0/100WBC Neutrophils # 7.510^3/ul Lymphocytes # 0.810^3/ul Monocytes # 0.510^3/ul Eosinophils # 0.010^3/ul Basophils # 0.110^3/ul Nucleated Red Blood Cells # 0.010^3/ul D-Dimer 3073.33ng/ml D-Dimer Comment Sodium Level 139mmol/L Potassium Level 4.0mmol/L Chloride Level 103mmol/L Carbon Dioxide Level 26mmol/L Anion Gap 14 Blood Urea Nitrogen 12mg/dl Creatinine 0.67mg/dl Glucose Level 167mg/dl Calcium Level 9.8mg/dl Total Bilirubin 0.2mg/dl Direct Bilirubin 0.00mg/dl Indirect Bilirubin 0.2mg/dl Aspartate Amino Transf (AST/SGOT) 13IU/L Alanine Aminotransferase (ALT/SGPT) 26IU/L Alkaline Phosphatase 137IU/L Troponin I < 0.012ng/ml Total Protein 8.5g/dl Albumin 4.3g/dl Globulin 4.20g/dl Albumin/Globulin Ratio 1.02 Lipase 74U/L Current Medications Medications (Trade) Dose Ordered Sig/Advid Route PRN Reason Start Time Stop Time Status Last Admin Dose Admin Sodium Chloride (NS) 1,000 ml @ 1,000 mls/hr Q1H STAT IV 02/03/17 19:31 02/03/17 20:30 DC 02/03/17 20:20 Ketorolac Tromethamine (Toradol) 15 mg ONCE STAT IV 02/03/17 19:31 02/03/17 19:33 DC 02/03/17 20:20 Ondansetron HCl (Zofran Inj) 4 mg ONCE STAT IV 02/03/17 19:47 02/03/17 19:48 DC 02/03/17 20:20 Ondansetron HCl (Zofran Inj) 4 mg STK-MED ONCE .ROUTE 02/03/17 19:47 02/03/17 19:48 DC Hydromorphone HCl (Dilaudid) 1 mg ONCE ONCE IV 02/03/17 21:15 02/03/17 21:16 DC 02/03/17 21:25 Ondansetron HCl 4 mg 4 mg ONCE ONCE IV 02/03/17 21:15 02/03/17 21:16 DC 02/03/17 21:24 Iohexol (Omnipaque) 100 ml @ ud STK-MED ONCE .ROUTE 02/03/17 21:42 02/03/17 21:43 DC 02/03/17 23:00 Iohexol 50 ml 50 ml STK-MED ONCE .ROUTE 02/03/17 21:42 02/03/17 21:43 DC Sodium Chloride (NS) 100 ml @ ud STK-MED ONCE .ROUTE 02/03/17 21:43 02/03/17 21:44 DC 02/03/17 23:00 IV Flush (NS 10 ml) 10 ml STK-MED ONCE .ROUTE 02/03/17 21:43 02/03/17 21:44 DC 02/03/17 23:00 Procedures/MDM IV line was established patient was placed on cardiac sonographer rhythm strip revealed a sinus rhythm at about 80 bpm with upright P and T waves. Patient was afebrile EKG performed, read by me: 86 bpm, normal sinus rhythm, normal axis, evidence of LVH in lead I, no acute ST segment changes, narrow QRS complex, with good R- wave progression in precordial leads. Chest X-ray 1V Interpreted by me: Soft Tissue: No acute abnormalities Bones: No acute abnormalities Mediastinum/Cardiac Silhouette/Lungs: No acute abnormalities I administered 1 L normal saline intravenously, Toradol 15 mg IV, Zofran 4 mg IV 2. Patient also required hydromorphone 1 mg IV 1 for pain control. CBC and electrolytes were unremarkable, liver function tests were normal, troponin was negative. D-dimer elevated at about 3000. CT angiogram of the chest was negative for acute pulmonary embolism or vascular abnormality. Please refer to radiologist dictation for full report. Differential diagnoses considered, included but not limited to acute coronary syndrome, pulmonary embolism, aortic dissection, abdominal aortic aneurysm, sepsis, stroke, meningitis, encephalitis, pneumonia, appendicitis, cholecystitis , bowel obstruction, pyelonephritis, nephrolithiasis, cystitis, as well as metabolic, hematologic, and electrolyte abnormalities. As well as abscess, cellulitis, fractures, and dislocations. Patient feels much better at this time, and vital signs are normal, symptoms have improved. I did give strict instructions to return to the ED if symptoms continue or worsen, patient will otherwise follow-up with primary care physician. Patient understood instructions and agreed to plan. Disclaimer: Inadvertent spelling and grammatical errors are likely due to EHR/ dictation software use and do not reflect on the overall quality of patient care. Also, please note that the electronic time recorded on this note does not necessarily reflect the actual time of the patient encounter. Departure Diagnosis: Primary Impression: Chest pain Chest pain type: unspecified Qualified Code: R07.9 - Chest pain, unspecified type Additional Impressions: Ovarian cancer in remission Postoperative pain Condition: Good JD WALTERS MD Feb 03, 2017 19:53
[2017-02-03] MEDS ORDERED: HYDR-902 PO (19:56)
[2017-02-03 20:09] LABS: ALANINE AMINOTRANSFERASE 26 IU/L (13-69); ALBUMIN 4.3 g/dl (3.3-4.9); ALBUMIN/GLOBULIN RATIO 1.02; ALKALINE PHOSPHATASE 137 IU/L (42-121); ANION GAP 14 (8-16); ASPARTATE AMINO TRANSFERASE 13 IU/L (15-46); BILIRUBIN,INDIRECT 0.2 mg/dl (0-1.1); BILIRUBIN,TOTAL 0.2 mg/dl (0.2-1.3); BLOOD UREA NITROGEN 12 mg/dl (7-20); CALCIUM 9.8 mg/dl (8.4-10.2); CARBON DIOXIDE 26 mmol/L (21-31); CHLORIDE 103 mmol/L (97-110); CREATININE 0.67 mg/dl (0.44-1.00); D-DIMER 3073.33 ng/ml (<460); GLUCOSE 167 mg/dl (70-220); SODIUM 139 mmol/L (135-144); TOTAL PROTEIN 8.5 g/dl (6.1-8.1)
[2017-02-03 20:24] LABS: TROPONIN-I < 0.012 ng/ml (0.00-0.12)
--- NOTE | 2017-02-03 20:37 | RADRPT ---
PROCEDURE: XR Chest. CLINICAL INDICATION: Shortness of breath. TECHNIQUE: Single frontal view. COMPARISON: 01/16/2017. FINDINGS: The nasogastric tube and left internal jugular vein catheter have been removed. The right internal j ugular vein Port-A-Cath remains in satisfactory position. There are low lung volumes and mild atelec tasis at the lung bases, improved. The lungs are otherwise clear. The heart is enlarged. There is calcification in the aorta consistent with atherosclerosis. There is no pleural effusion. There is no pneumothorax. IMPRESSION: 1. Nasogastric tube and left IJ catheter removed. 2. Improved appearance of the lungs. 3. No other change from 01/16/2017. RPTAT: QQ .Grover Ayala MD, MD Date Time Electronically viewed and signed by .Grover Ayala MD, on 02/03/2017 20:37 .R/
[2017-02-03] MEDS ORDERED: HYDROmorphONE 1 MG/ML SYG IV ONE (21:15)
[2017-02-03] MEDS ORDERED: ONDANSETRON 4 MG INJ IV ONE (21:15)
[2017-02-03] MEDS ORDERED: IOHEXOL 100 ML ONE (21:42)
[2017-02-03] MEDS ORDERED: IOHEXOL 350MG/ML 50 ML BTL ONE (21:42)
[2017-02-03] MEDS ORDERED: SOD CHLORIDE 0.9% 100 ML ONE (21:43)
[2017-02-04] VITALS (12 sets, daily range): BP systolic 114–144; BP diastolic 54–66; PULSE 83–102; RESP 18–19
[2017-02-04] MEDS ORDERED: NITROGLYCERIN (SL) 0.4 MG TAB SL PRN (03:30)
[2017-02-04] MEDS: HYDROmorphONE 0.5 MG/0.5 ML SYG IV PRN ×2 (06:13→11:45)
[2017-02-04] MEDS: PANTOPRAZOLE (EC) 40 MG TAB PO SCH (06:13)
[2017-02-04] MEDS: ONDANSETRON 4 MG INJ IV PRN (06:13)
[2017-02-04 06:30] LABS: BASOPHIL # 0.1 10^3/ul (0.0-0.1); BASOPHILS % 0.6 % (0.0-2.0); EOSINOPHILS % 0.4 % (0.0-7.0); HEMATOCRIT 30.8 % (37.0-47.0); HEMOGLOBIN 10.2 g/dl (12.0-16.0); LYMPHOCYTES # 0.9 10^3/ul (0.8-2.9); LYMPHOCYTES % 10.9 % (15.0-51.0); MEAN CORPUSCULAR HEMOGLOBIN 27.6 pg (29.0-33.0); MEAN CORPUSCULAR HGB CONC 33.1 g/dl (32.0-37.0); MEAN CORPUSCULAR VOLUME 83.2 fl (82.0-101.0); MEAN PLATELET VOLUME 10.1 fl (7.4-10.4); MONOCYTE # 0.8 10^3/ul (0.3-0.9); MONOCYTES % 9.4 % (0.0-11.0); NEUTROPHIL # 6.7 10^3/ul (1.6-7.5); NEUTROPHILS % 78.3 % (39.0-77.0); PLATELET COUNT 300 10^3/UL (140-415); RED CELL DISTRIBUTION WIDTH 13.9 % (11.5-14.5); WHITE BLOOD COUNT 8.5 10^3/ul (4.8-10.8)
[2017-02-04 07:06] LABS: ALBUMIN 3.6 g/dl (3.3-4.9); ALBUMIN/GLOBULIN RATIO 0.94; BILIRUBIN,INDIRECT 0.3 mg/dl (0-1.1); BILIRUBIN,TOTAL 0.3 mg/dl (0.2-1.3); CALCIUM 9.1 mg/dl (8.4-10.2); CHOL/HDL RATIO 7.7 RATIO; CREATININE 0.65 mg/dl (0.44-1.00); POTASSIUM 4.2 mmol/L (3.5-5.1); TOTAL PROTEIN 7.4 g/dl (6.1-8.1)
--- NOTE | 2017-02-04 08:36 | RADRPT ---
AMENDMENT: 02/04/2017 12:15:32 AM Dion Pina M.d Correction: Technique:The patient was examined following the intravenous administration of 90 cc of Omnipaque-350. PROCEDURE: CTA Chest and pulmonary angiogram. CLINICAL INDICATION: Evaluate for pulmonary embolism, shortness of breath. The patient has a histo ry of metastatic ovarian cancer and hypertension. TECHNIQUE: CT scan of the chest and CT pulmonary angiogram was performed on a multidetector high-r esolution CT scanner. High-resolution thin slice coronal and sagittal imaging was obtained from the axial source images. No 3-D/maximum intensity projection reformatted imaging was performed. The pa tient was examined following the intravenous administration of 100 cc of Omnipaque-300. The images w ere reviewed on a PACS workstation. The total exam CTDI equals 11.51 mGy, and the total exam DLP equ als 391.28 mGy-cm. One or more the following dose reduction techniques were utilized: Automated exposure control, adjus tment of the mA and / or kV according to patient's size, or use of iterative reconstruction techniqu e. COMPARISON: Chest x-ray of 02/03/2017 and CTA chest of 02/14/2016 FINDINGS: Right Port-A-Cath tip in lower right atrium. Right nephroureteral stent and skin michael in the ante rior abdomen on the dope mixer topogram. No filling defects suggestive of emboli are seen in main, lobar or segmental pulmonary arteries. Atherosclerotic changes including calcification in thoracoabdominal aorta. No thoracic aortic aneurysm or dissection is seen. No enlarged mediastinal lymph nodes are seen. Trace left pleural effusion. Scattered linear atelectasis/fibrosis is seen in the lungs. Mil d dependent atelectasis in posterior lungs. Partial atelectasis in bilateral lower lobes. Degenerati ve changes in thoracic spine. Cholecystectomy. No adrenal mass is seen. Small amount of ascites in v isualized upper abdomen. IMPRESSION: No evidence of pulmonary emboli. Trace left pleural effusion. Partial atelectasis in bilateral lower lobes. Small amount of ascites in visualized upper abdomen. Please see above. RPTAT: HJES .Dion Pina MD, MD Date Time Electronically viewed and signed by .Dion Pina MD, MD on 02/04/2017 00:15 .S/
[2017-02-04] MEDS: ASPIRIN 325 MG TAB PO SCH (09:44)
[2017-02-04] MEDS: METOPROLOL 25 MG TAB PO SCH ×2 (09:44→20:25)
[2017-02-04] MEDS: ENOXAPARIN 40 MG/0.4 ML SYG SC SCH (09:57)
--- NOTE | 2017-02-04 13:35 | RADRPT ---
Vent Rate: 91 bpm RR Interval: 0 msec MD Interval: 158 msec QRS Duration: 98 msec QT Interval: 354 msec QTC Interval: 435 msec P-R-T [place]: 45 - 39 - 65 degrees Normal sinus rhythm Normal ECG Electronically Signed By: Colten Rudolph [id number]
--- NOTE | 2017-02-04 21:13 | RADRPT ---
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 Physician: COBY KRAMER Quality: Adequate Procedures: Transthoracic echocardiogram with complete 2D, M-Mode, and doppler examination. Indications: Chest Pain. 2D/M Mode Doppler Measurement Value Normal Ranges Measurement Value Normal Ranges LVIDd 2D 3.6 3.5 - 5.6 cm AV Peak Rishabh 1.4 m/sec LVIDs 2D 2.0 2.1 - 4.1 cm AV Peak PG 8.2 mmHg LVPWd 2D 0.7 0.6 - 1.1 cm LVOT Peak Rishabh 1.0 m/sec IVSd 2D 0.8 0.6 - 1.1 cm LVOT Peak PG 3.9 mmHg AoR Diam 2D 2.5 2.0 - 3.7 cm MV E Peak Rishabh 0.7 m/sec EDV 2D 56.1 cm3 MV A Peak Rishabh 0.8 m/sec ESV 2D 8.1 cm3 MV E/A 0.8 LA Dimen 2D 3.2 2.3 - 4.0 cm MV Decel Time 147 msec MV Decel Medina 5 MV E/A 0.8 Findings Left Ventricle: Normal left ventricular systolic function. Normal left ventricular cavity size. Normal left ventricular wall thickness. Ejection fraction is visually estimated at 5560 %. Tissue Doppler/Mitral Doppler indices are consistent with impaired relaxation (Stage I diastolic dysfunction). Right Ventricle: Normal right ventricular size. Normal right ventricular systolic function. Left Atrium: The left atrium is normal in size. Right Atrium: The right atrium is normal in size. Mitral Valve: Normal appearance and function of the mitral valve with trace physiologic regurgitation. Aortic Valve: Normal appearance of the aortic valve. No significant aortic stenosis or insufficiency. Tricuspid Valve: Normal appearance of the tricuspid valve. Unable to obtain RVSP due to minimal presence of tricuspid regurgitation. Pulmonic Valve: Normal pulmonic valve appearance. Pericardium: Normal pericardium with no significant pericardial effusion. Aorta: Normal aortic root. IVC: Normal size and normal respiratory collapse consistent with normal right atrial pressure. Conclusions 1.Normal left ventricular systolic function. Normal left ventricular cavity size. Normal left ventricular wall thickness. Ejection fraction is visually estimated at 55-60 %. Tissue Doppler/Mitral Doppler indices are consistent with impaired relaxation (Stage I diastolic dysfunction). 2.Normal appearance and function of the mitral valve with trace physiologic regurgitation. 3.Normal appearance of the tricuspid valve. Unable to obtain RVSP due to minimal presence of tricuspid regurgitation. Electronically Signed By: Kameron Lucero 04-Feb-2017 21:13:45 -0700 Patient Name: BRANDAN HEMPHILL Study Date: 04-Feb-2017 [id number]
[2017-02-05] VITALS (11 sets, daily range): BP systolic 97–121; BP diastolic 50–65; PULSE 75–91; RESP 17–19
--- NOTE | 2017-02-05 00:10 | HP ---
Date/Time of Note Date/Time of Note DATE: 02/04/17 TIME: 18:06 Assessment/Plan VTE Prophylaxis VTE Prophylaxis Intervention: LMWH Lines/Catheters IV Catheter Type (from Nrsg): Saline Lock Urinary Cath still in place: Yes Reason Cath still needed: urinary retention Assessment/Plan Assessment/Plan - Chest pain r/o acute coronary syndrome . none at present. - troponin negative - D-dimer elevated -3000. - CTA is negative for PE - per Dr Lucero in cardiology - admit on tele -Ovarian cancer in remission -status post secondary cytoreduction surgery by Dr Hayes. -Postoperative pain - DM with hemoglobin A1c 6.2 as of 01/15 2107. 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 Pedroza. - Anemia- H/H stable, con to monitor - Hypertension - cont Lisinopril, metoprolol - Dyslipidemia - cont Atorvastatin - Coronary Artery Disease - per cardiology - Lovenox for DVT prophylaxis - Protonix for GI prophylaxis Plan of care dw Dr Phelps/staff/patient HPI/ROS Admit Date/Time Admit Date/Time Feb 04, 2017 at 00:40 Hx of Present Illness HPI This is a 61-year-old female patient with history of total abdominal hysterectomy due to ovarian carcinoma, laparotomy, right ear dissection and portal node dissection and ventral hernia repair, repair of right carotid artery and a right internal jugular vein sec to injury during central line placement. Patient is admitted with complains of chest pain or shortness of breath 2 days but none at present. She stated chest pain was sharp, nonexertional, nonradiating , associated with nausea and clear nonbloody nonbilious emesis, not gating better with pain med. She uses oral analgesics daily for her post op pain. During physical exam, patient is resting in bed, seems comfortable, She denies dizziness, palpitations, cough, fevers or chills, focal weakness, numbness, abdominal pain, nausea/ vomitting, bilateral calf or leg swelling. Patient is admitted under Dr Phelps for further evaluation and treatment. ROS All systems reviewed and are negative except as per history of present illness. Allergies Allergies: Coded Allergies: No Known Allergies (Unverified Allergy, Unknown, 02/03/17) ROS Constitutional: improved Respiratory: no complaints Cardiovascular: no complaints Gastrointestinal: no complaints Genitourinary: no complaints Musculoskeletal: no complaints Skin: no complaints PMH/Family/Social Past Medical History PMhx/Soc Hypertension, dyslipidemia, diabetes mellitus, ovarian cancer status post total hysterectomy, CAD History of Surgery: Yes (HYSTERECTOMY, LAP ROBB, HERNIA, ) Anesthesia Reaction: No Hx Neurological Disorder: No Hx Respiratory Disorders: No Hx Cardiac Disorders: Yes (HTN, HLD) Hx Psychiatric Problems: No Hx Miscellaneous Medical Probl: Yes (OVARIAN CA) Hx Alcohol Use: No Hx Substance Use: No Hx Tobacco Use: No Smoking Status: Never smoker FmHx Family History: No diabetes Social History Smoking Status: Never smoker Exam/Review of Systems Vital Signs Vitals Vital Signs Date Time Temp Pulse Resp B/P Pulse Ox O2 Delivery O2 Flow Rate FiO2 02/04/17 16:11 98.4 95 18 122/54 92 02/04/17 02:31 Room Air Intake and Output 02/03/17 02/03/17 02/04/17 15:00 23:00 07:00 Intake Total 200 ml Output Total 200 ml Balance 0 ml Exam Constitutional: alert, oriented, well developed Psych: nl mood/affect Cardiovascular: nl pulses, other (s1s2) Gastrointestinal: other (surgical abdomen), soft Musculoskeletal: nl extremities to inspection Extremities: normal pulses Neurological: nl mental status, nl speech Labs Result Diagram: 02/04/1752302/04/17524 Medications Medications Current Medications Nitroglycerin (Nitroglycerin (Sl Tab) 0.4 Mg) 1 tab Q5M PRN SL ANGINA; Start 02/04/17 at 03:30 Metoprolol Tartrate (Lopressor) 25 mg BID PO Last administered on 02/04/17 09 :44; Admin Dose 25 MG; Start 02/04/17 at 09:00 Enoxaparin Sodium (Lovenox) 40 mg DAILY SC Last administered on 02/04/17 09: 57; Admin Dose 40 MG; Start 02/04/17 at 09:00 Acetaminophen (Tylenol Tab) 650 mg Q4H PRN PO PAIN AND OR ELEVATED TEMP; Start 02/04/17 at 03:30 Hydromorphone HCl (Dilaudid) 1 mg Q3H PRN IV PAIN LEVEL 8-10 Last administered on 02/04/17 11:45; Admin Dose 1 MG; Start 02/04/17 at 03:30 Ondansetron HCl (Zofran Inj) 4 mg Q4H PRN IV NAUSEA AND/OR VOMITING Last administered on 02/04/17 06:13; Admin Dose 4 MG; Start 02/04/17 at 03:30 Pantoprazole (Protonix Tab) 40 mg DAILY@06 PO Last administered on 02/04/17 06:13; Admin Dose 40 MG; Start 02/04/17 at 06:00 Aspirin (Aspirin) 325 mg DAILY PO Last administered on 02/04/17 09:44; Admin Dose 325 MG; Start 02/04/17 at 09:00 Procedures Procedures - EKG performed, read by me: 86 bpm, normal sinus rhythm, normal axis, evidence of LVH in lead I, no acute ST segment changes, narrow QRS complex, with good R-wave progression in precordial leads. - Chest X-ray 1V Interpreted by me: Soft Tissue: No acute abnormalities Bones: No acute abnormalities Mediastinum/Cardiac Silhouette/Lungs: No acute abnormalities - CBC and electrolytes were unremarkable, liver function tests were normal, troponin was negative. - D-dimer elevated at about 3000. - CT angiogram of the chest was negative for acute pulmonary embolism or vascular abnormality. Please refer to radiologist dictation for full report. YFN BRIAN Feb 04, 2017 18:16
[2017-02-05] MEDS: DOCUSATE SODIUM 100 MG CAP PO SCH ×3 (00:28→20:32)
[2017-02-05] MEDS: NS + KCL 20 MEQ 1,000 ML IV SCH ×2 (01:00→18:58)
[2017-02-05] MEDS: PANTOPRAZOLE (EC) 40 MG TAB PO SCH (06:24)
[2017-02-05 07:50] LABS: CHOL/HDL RATIO 6.3 RATIO
[2017-02-05] MEDS: ASPIRIN 325 MG TAB PO SCH (09:29)
[2017-02-05] MEDS: METOPROLOL 25 MG TAB PO SCH ×2 (09:30→20:33)
[2017-02-05] MEDS: LISINOPRIL 5 MG TAB PO SCH (09:30)
[2017-02-05] MEDS: ENOXAPARIN 40 MG/0.4 ML SYG SC SCH (09:31)
--- NOTE | 2017-02-05 15:38 | PN ---
Date/Time of Note Date/Time of Note DATE: 02/05/17 TIME: 15:32 Assessment/Plan VTE Prophylaxis VTE Prophylaxis Intervention: SCD's Lines/Catheters IV Catheter Type (from Nrs): Peripheral IV Urinary Cath still in place: Yes Reason Cath still needed: urinary retention Assessment/Plan Assessment/Plan - Chest pain, rule out acute coronary syndrome. CTA is negative for PE. Dr Lucero in following in cardiology consultation. - Recurrent/persistent ovarian cancer, status post secondary cytoreduction surgery by Dr Hayes. - DM with hemoglobin A1c 6.3. Continue NovoLog per mild algorithm sliding scale. Further recommendations based on clinical course. Plan of care discussed with Dr. Phelps. Exam/Review of Systems Vital Signs Vitals Vital Signs Date Time Temp Pulse Resp B/P Pulse Ox O2 Delivery O2 Flow Rate FiO2 02/05/17 12:14 83 02/05/17 11:49 97.2 18 119/58 95 02/04/17 02:31 Room Air Intake and Output 02/04/17 02/04/17 02/05/17 15:00 23:00 07:00 Intake Total 360 ml 500 ml Output Total 225 ml 700 ml Balance 135 ml -200 ml Exam Constitutional: alert, oriented Eyes: nl conjunctiva Neck: supple Respiratory: normal air movement Cardiovascular: nl pulses Gastrointestinal: non-tender, soft Musculoskeletal: nl extremities to inspection Extremities: normal pulses Neurological: nl mental status Skin: nl turgor Results Result Diagram: 02/04/17 0524 02/04/17 0525 Results 24 hrs Laboratory Tests Test 02/05/17 07:12 Triglycerides Level 114 Cholesterol Level 145 LDL Cholesterol, Calculated 99 HDL Cholesterol 23 L Cholesterol/HDL Ratio 6.3 Medications Medications Current Medications Nitroglycerin (Nitroglycerin (Sl Tab) 0.4 Mg) 1 tab Q5M PRN SL ANGINA; Start 02/04/17 at 03:30 Metoprolol Tartrate (Lopressor) 25 mg BID PO Last administered on 02/05/17 09 :30; Admin Dose 25 MG; Start 02/04/17 at 09:00 Enoxaparin Sodium (Lovenox) 40 mg DAILY SC Last administered on 02/05/17 09: 31; Admin Dose 40 MG; Start 02/04/17 at 09:00 Acetaminophen (Tylenol Tab) 650 mg Q4H PRN PO PAIN AND OR ELEVATED TEMP; Start 02/04/17 at 03:30 Hydromorphone HCl (Dilaudid) 1 mg Q3H PRN IV PAIN LEVEL 8-10 Last administered on 02/04/17 11:45; Admin Dose 1 MG; Start 02/04/17 at 03:30 Ondansetron HCl (Zofran Inj) 4 mg Q4H PRN IV NAUSEA AND/OR VOMITING Last administered on 02/04/17 06:13; Admin Dose 4 MG; Start 02/04/17 at 03:30 Pantoprazole (Protonix Tab) 40 mg DAILY@06 PO Last administered on 02/05/17 06:24; Admin Dose 40 MG; Start 02/04/17 at 06:00 Aspirin (Aspirin) 325 mg DAILY PO Last administered on 02/05/17 09:29; Admin Dose 325 MG; Start 02/04/17 at 09:00 Atorvastatin Calcium (Lipitor) 20 mg QHS PO ; Start 02/05/17 at 21:00 Docusate Sodium (Colace) 100 mg BID PO Last administered on 02/05/17 09:29; Admin Dose 100 MG; Start 02/05/17 at 00:00 Lisinopril 5 mg 5 mg DAILY PO Last administered on 02/05/17 09:30; Admin Dose 5 MG; Start 02/05/17 at 09:00 Potassium Chloride/Sodium Chloride (NS-KCl 20 Meq) 1,000 ml @ 60 mls/hr [id number] IV Last administered on 02/05/17 01:00; Admin Dose 60 MLS/HR; Start 02/05/17 at 00:30 MATHIEU WALSH Feb 05, 2017 15:38
[2017-02-05] MEDS ORDERED: GLUCAGON 1 MG INJ IM PRN (18:30)
[2017-02-05] MEDS ORDERED: DEXTROSE 50% 50 ML SYRINGE IV PRN ×2 (18:30)
[2017-02-05] MEDS ORDERED: GLUCOSE GEL 15 GRAM TUBE PO PRN ×2 (18:30)
[2017-02-05] MEDS ORDERED: GLUCOSE GEL 15 GRAM TUBE BUCCAL PRN (18:30)
[2017-02-05] MEDS: ATORVASTATIN 20 MG TAB PO SCH (20:33)
[2017-02-05] MEDS: INSULIN ASPART [NOVOLOG] 3 ML PEN SC SCH ×2 (20:36→21:00)
[2017-02-05] MEDS ORDERED: INSULIN ASPART [NOVOLOG] 3 ML PEN SC SCH (21:00)
[2017-02-06] VITALS (11 sets, daily range): BP systolic 103–124; BP diastolic 52–59; PULSE 72–82; RESP 16–18
[2017-02-06] MEDS ORDERED: ACCU-CHEK XX SCH (02:00)
[2017-02-06] MEDS: ACCU-CHEK XX SCH (02:28)
[2017-02-06] MEDS: PANTOPRAZOLE (EC) 40 MG TAB PO SCH (06:17)
[2017-02-06 06:26] LABS: BASOPHIL # 0.1 10^3/ul (0.0-0.1); BASOPHILS % 0.6 % (0.0-2.0); EOSINOPHILS # 0.1 10^3/ul (0.0-0.5); EOSINOPHILS % 0.6 % (0.0-7.0); HEMATOCRIT 27.7 % (37.0-47.0); HEMOGLOBIN 9.2 g/dl (12.0-16.0); LYMPHOCYTES # 1.4 10^3/ul (0.8-2.9); LYMPHOCYTES % 16.8 % (15.0-51.0); MEAN CORPUSCULAR HEMOGLOBIN 27.3 pg (29.0-33.0); MEAN CORPUSCULAR HGB CONC 33.2 g/dl (32.0-37.0); MEAN CORPUSCULAR VOLUME 82.2 fl (82.0-101.0); MEAN PLATELET VOLUME 9.8 fl (7.4-10.4); MONOCYTE # 0.9 10^3/ul (0.3-0.9); MONOCYTES % 11.4 % (0.0-11.0); NEUTROPHIL # 5.7 10^3/ul (1.6-7.5); NEUTROPHILS % 70.2 % (39.0-77.0); PLATELET COUNT 232 10^3/UL (140-415); RED BLOOD COUNT 3.37 10^6/ul (4.20-5.40); RED CELL DISTRIBUTION WIDTH 13.9 % (11.5-14.5); WHITE BLOOD COUNT 8.2 10^3/ul (4.8-10.8)
[2017-02-06 07:04] LABS: CALCIUM 8.5 mg/dl (8.4-10.2); CREATININE 0.6 mg/dl (0.44-1.00); POTASSIUM 3.9 mmol/L (3.5-5.1)
[2017-02-06] MEDS: ACETAMINOPHEN 325 MG TAB PO PRN (07:22)
[2017-02-06] MEDS: INSULIN ASPART [NOVOLOG] 3 ML PEN SC SCH ×4 (08:00→20:58)
[2017-02-06] MEDS: ASPIRIN 325 MG TAB PO SCH (09:52)
[2017-02-06] MEDS: LISINOPRIL 5 MG TAB PO SCH (09:53)
[2017-02-06] MEDS: METOPROLOL 25 MG TAB PO SCH ×2 (09:54→20:55)
[2017-02-06] MEDS: DOCUSATE SODIUM 100 MG CAP PO SCH ×2 (09:54→20:54)
[2017-02-06] MEDS: ENOXAPARIN 40 MG/0.4 ML SYG SC SCH (09:58)
--- NOTE | 2017-02-06 10:51 | PN ---
Date/Time of Note Date/Time of Note DATE: 02/06/17 TIME: 10:50 Assessment/Plan VTE Prophylaxis VTE Prophylaxis Intervention: other Lines/Catheters IV Catheter Type (from Nrsg): Peripheral IV Urinary Cath still in place: Yes Reason Cath still needed: skin wounds contaminated by urine Assessment/Plan Chief Complaint/Hosp Course - Chest pain, rule out acute coronary syndrome. CTA is negative for PE. Dr Lucero in following in cardiology consultation. - Recurrent/persistent ovarian cancer, status post secondary cytoreduction surgery by Dr Hayes. - DM with hemoglobin A1c 6.3. Continue NovoLog per mild algorithm sliding scale. Problems: Subjective 24 Hr Interval Summary Free Text/Dictation Patient denies any chest pain Exam/Review of Systems Vital Signs Vitals Vital Signs Date Time Temp Pulse Resp B/P Pulse Ox O2 Delivery O2 Flow Rate FiO2 02/06/17 08:10 78 02/06/17 07:48 98.2 17 113/52 96 02/04/17 02:31 Room Air Intake and Output 02/05/17 02/05/17 02/06/17 14:59 22:59 06:59 Intake Total 1700 ml Output Total 1600 ml Balance 100 ml Exam Constitutional: well developed Head: atraumatic, normocephalic Neck: supple Respiratory: clear to auscultation Cardiovascular: regular rate and rhythm Gastrointestinal: non-tender, soft Extremities: normal pulses Results Result Diagram: 02/06/17 0553 02/06/17 0553 Results 24 hrs Laboratory Tests Test 02/05/17 20:06 02/06/17 05:53 02/06/17 07:38 Bedside Glucose 236 H 132 White Blood Count 8.2 Red Blood Count 3.37 L Hemoglobin 9.2 L Hematocrit 27.7 L Mean Corpuscular Volume 82.2 Mean Corpuscular Hemoglobin 27.3 L Mean Corpuscular Hemoglobin Concent 33.2 Red Cell Distribution Width 13.9 Platelet Count 232 # Mean Platelet Volume 9.8 Neutrophils % 70.2 Lymphocytes % 16.8 Monocytes % 11.4 H Eosinophils % 0.6 Basophils % 0.6 Nucleated Red Blood Cells % 0.0 Neutrophils # 5.7 Lymphocytes # 1.4 Monocytes # 0.9 Eosinophils # 0.1 Basophils # 0.1 Nucleated Red Blood Cells # 0.0 Sodium Level 139 Potassium Level 3.9 Chloride Level 104 Carbon Dioxide Level 29 Anion Gap 10 Blood Urea Nitrogen 7 Creatinine 0.60 Glucose Level 119 Calcium Level 8.5 Medications Medications Current Medications Nitroglycerin (Nitroglycerin (Sl Tab) 0.4 Mg) 1 tab Q5M PRN SL ANGINA; Start 02/04/17 at 03:30 Metoprolol Tartrate (Lopressor) 25 mg BID PO Last administered on 02/06/17 09 :54; Admin Dose 25 MG; Start 02/04/17 at 09:00 Enoxaparin Sodium (Lovenox) 40 mg DAILY SC Last administered on 02/06/17 09: 58; Admin Dose 40 MG; Start 02/04/17 at 09:00 Acetaminophen (Tylenol Tab) 650 mg Q4H PRN PO PAIN AND OR ELEVATED TEMP Last administered on 02/06/17 07:22; Admin Dose 650 MG; Start 02/04/17 at 03:30 Hydromorphone HCl (Dilaudid) 1 mg Q3H PRN IV PAIN LEVEL 8-10 Last administered on 02/04/17 11:45; Admin Dose 1 MG; Start 02/04/17 at 03:30 Ondansetron HCl (Zofran Inj) 4 mg Q4H PRN IV NAUSEA AND/OR VOMITING Last administered on 02/04/17 06:13; Admin Dose 4 MG; Start 02/04/17 at 03:30 Pantoprazole (Protonix Tab) 40 mg DAILY@06 PO Last administered on 02/06/17 06:17; Admin Dose 40 MG; Start 02/04/17 at 06:00 Aspirin (Aspirin) 325 mg DAILY PO Last administered on 02/06/17 09:52; Admin Dose 325 MG; Start 02/04/17 at 09:00 Atorvastatin Calcium (Lipitor) 20 mg QHS PO Last administered on 02/05/17 20: 33; Admin Dose 20 MG; Start 02/05/17 at 21:00 Docusate Sodium (Colace) 100 mg BID PO Last administered on 02/06/17 09:54; Admin Dose 100 MG; Start 02/05/17 at 00:00 Lisinopril 5 mg 5 mg DAILY PO Last administered on 02/06/17 09:53; Admin Dose 5 MG; Start 02/05/17 at 09:00 Potassium Chloride/Sodium Chloride (NS-KCl 20 Meq) 1,000 ml @ 60 mls/hr [id number] IV Last administered on 02/05/17 18:58; Admin Dose 60 MLS/HR; Start 02/05/17 at 00:30 Diagnostic Test (Pha) (Accu-Chek) 1 ea 02 XX Last administered on 02/06/17 02 :28; Admin Dose 1 EA; Start 02/06/17 at 02:00 Miscellaneous Information 1 ea NOTE XX ; Start 02/05/17 at 18:30 Glucose (Glutose) 15 gm Q15M PRN PO DECREASED GLUCOSE; Start 02/05/17 at 18:30 Glucose (Glutose) 22.5 gm Q15M PRN PO DECREASED GLUCOSE; Start 02/05/17 at 18: 30 Dextrose (D50w Syringe) 25 ml Q15M PRN IV DECREASED GLUCOSE; Start 02/05/17 at 18:30 Dextrose (D50w Syringe) 50 ml Q15M PRN IV DECREASED GLUCOSE; Start 02/05/17 at 18:30 Glucagon (Glucagen) 1 mg Q15M PRN IM DECREASED GLUCOSE; Start 02/05/17 at 18: 30 Glucose (Glutose) 15 gm Q15M PRN BUCCAL DECREASED GLUCOSE; Start 02/05/17 at 18:30 WAN CLANCY Feb 06, 2017 10:51
--- NOTE | 2017-02-06 15:06 | PN ---
Date/Time of Note Date/Time of Note DATE: 02/06/17 TIME: 15:03 Assessment/Plan VTE Prophylaxis VTE Prophylaxis Intervention: SCD's Lines/Catheters IV Catheter Type (from Nrsg): Peripheral IV Urinary Cath still in place: Yes Reason Cath still needed: other (indicate) Assessment/Plan Chief Complaint/Hosp Course Ovarian ca Problems: Assessment/Plan A- wound not an issue and [place] in to avoid retention; ureter healing P- per IM/Onc Subjective 24 Hr Interval Summary Free Text/Dictation Feels better but some ongoing neck and upper back pain Exam/Review of Systems Vital Signs Vitals Vital Signs Date Time Temp Pulse Resp B/P Pulse Ox O2 Delivery O2 Flow Rate FiO2 02/06/17 11:47 98.0 76 18 124/58 96 02/04/17 02:31 Room Air Intake and Output 02/05/17 02/05/17 02/06/17 14:59 22:59 06:59 Intake Total 1700 ml Output Total 1600 ml Balance 100 ml Exam Resp- Nt and symmetric CVS- NSR Abd- soft Ext- NT Results Result Diagram: 02/06/17 0553 02/06/17 0553 Results 24 hrs Laboratory Tests Test 02/05/17 20:06 02/06/17 05:53 02/06/17 07:38 02/06/17 12:23 Bedside Glucose 236 H 132 116 White Blood Count 8.2 Red Blood Count 3.37 L Hemoglobin 9.2 L Hematocrit 27.7 L Mean Corpuscular Volume 82.2 Mean Corpuscular Hemoglobin 27.3 L Mean Corpuscular Hemoglobin Concent 33.2 Red Cell Distribution Width 13.9 Platelet Count 232 # Mean Platelet Volume 9.8 Neutrophils % 70.2 Lymphocytes % 16.8 Monocytes % 11.4 H Eosinophils % 0.6 Basophils % 0.6 Nucleated Red Blood Cells % 0.0 Neutrophils # 5.7 Lymphocytes # 1.4 Monocytes # 0.9 Eosinophils # 0.1 Basophils # 0.1 Nucleated Red Blood Cells # 0.0 Sodium Level 139 Potassium Level 3.9 Chloride Level 104 Carbon Dioxide Level 29 Anion Gap 10 Blood Urea Nitrogen 7 Creatinine 0.60 Glucose Level 119 Calcium Level 8.5 Medications Medications Current Medications Nitroglycerin (Nitroglycerin (Sl Tab) 0.4 Mg) 1 tab Q5M PRN SL ANGINA; Start 02/04/17 at 03:30 Metoprolol Tartrate (Lopressor) 25 mg BID PO Last administered on 02/06/17 09 :54; Admin Dose 25 MG; Start 02/04/17 at 09:00 Enoxaparin Sodium (Lovenox) 40 mg DAILY SC Last administered on 02/06/17 09: 58; Admin Dose 40 MG; Start 02/04/17 at 09:00 Acetaminophen (Tylenol Tab) 650 mg Q4H PRN PO PAIN AND OR ELEVATED TEMP Last administered on 02/06/17 07:22; Admin Dose 650 MG; Start 02/04/17 at 03:30 Hydromorphone HCl (Dilaudid) 1 mg Q3H PRN IV PAIN LEVEL 8-10 Last administered on 02/04/17 11:45; Admin Dose 1 MG; Start 02/04/17 at 03:30 Ondansetron HCl (Zofran Inj) 4 mg Q4H PRN IV NAUSEA AND/OR VOMITING Last administered on 02/04/17 06:13; Admin Dose 4 MG; Start 02/04/17 at 03:30 Pantoprazole (Protonix Tab) 40 mg DAILY@06 PO Last administered on 02/06/17 06:17; Admin Dose 40 MG; Start 02/04/17 at 06:00 Aspirin (Aspirin) 325 mg DAILY PO Last administered on 02/06/17 09:52; Admin Dose 325 MG; Start 02/04/17 at 09:00 Atorvastatin Calcium (Lipitor) 20 mg QHS PO Last administered on 02/05/17 20: 33; Admin Dose 20 MG; Start 02/05/17 at 21:00 Docusate Sodium (Colace) 100 mg BID PO Last administered on 02/06/17 09:54; Admin Dose 100 MG; Start 02/05/17 at 00:00 Lisinopril 5 mg 5 mg DAILY PO Last administered on 02/06/17 09:53; Admin Dose 5 MG; Start 02/05/17 at 09:00 Potassium Chloride/Sodium Chloride (NS-KCl 20 Meq) 1,000 ml @ 60 mls/hr [id number] IV Last administered on 02/05/17 18:58; Admin Dose 60 MLS/HR; Start 02/05/17 at 00:30 Diagnostic Test (Pha) (Accu-Chek) 1 ea 02 XX Last administered on 02/06/17t 02 :28; Admin Dose 1 EA; Start 02/06/17 at 02:00 Miscellaneous Information 1 ea NOTE XX ; Start 02/05/17 at 18:30 Glucose (Glutose) 15 gm Q15M PRN PO DECREASED GLUCOSE; Start 02/05/17 at 18:30 Glucose (Glutose) 22.5 gm Q15M PRN PO DECREASED GLUCOSE; Start 02/05/17 at 18: 30 Dextrose (D50w Syringe) 25 ml Q15M PRN IV DECREASED GLUCOSE; Start 02/05/17 at 18:30 Dextrose (D50w Syringe) 50 ml Q15M PRN IV DECREASED GLUCOSE; Start 02/05/17 at 18:30 Glucagon (Glucagen) 1 mg Q15M PRN IM DECREASED GLUCOSE; Start 02/05/17 at 18: 30 Glucose (Glutose) 15 gm Q15M PRN BUCCAL DECREASED GLUCOSE; Start 02/05/17 at 18:30 JEFF PALOMINO MD Feb 06, 2017 15:06
[2017-02-06] MEDS: ATORVASTATIN 20 MG TAB PO SCH (20:54)
[2017-02-06] MEDS ORDERED: MAGNESIUM CITRATE 300 ML BTL PO ONE (21:00)
[2017-02-06] MEDS: NS + KCL 20 MEQ 1,000 ML IV SCH (23:54)
[2017-02-07] VITALS (13 sets, daily range): BP systolic 104–132; BP diastolic 49–80; PULSE 69–77; RESP 16–18
[2017-02-07] MEDS: ACCU-CHEK XX SCH (02:00)
[2017-02-07] MEDS: PANTOPRAZOLE (EC) 40 MG TAB PO SCH (06:17)
[2017-02-07] MEDS: ASPIRIN 325 MG TAB PO SCH (08:00)
[2017-02-07] MEDS: INSULIN ASPART [NOVOLOG] 3 ML PEN SC SCH ×4 (08:00→20:22)
[2017-02-07] MEDS: DOCUSATE SODIUM 100 MG CAP PO SCH ×2 (08:02→20:25)
[2017-02-07] MEDS: METOPROLOL 25 MG TAB PO SCH ×2 (08:02→22:25)
[2017-02-07] MEDS: LISINOPRIL 5 MG TAB PO SCH (08:03)
[2017-02-07] MEDS: ENOXAPARIN 40 MG/0.4 ML SYG SC SCH (08:05)
--- NOTE | 2017-02-07 11:31 | PN ---
Date/Time of Note Date/Time of Note DATE: 02/07/17 TIME: 11:30 Assessment/Plan VTE Prophylaxis VTE Prophylaxis Intervention: other Lines/Catheters IV Catheter Type (from Nrsg): Peripheral IV Urinary Cath still in place: Yes Reason Cath still needed: skin wounds contaminated by urine Assessment/Plan Chief Complaint/Hosp Course - Chest pain, rule out acute coronary syndrome. CTA is negative for PE. Dr Lucero in following in cardiology consultation. - Recurrent/persistent ovarian cancer, status post secondary cytoreduction surgery by Dr Hayes. - DM with hemoglobin A1c 6.3. Continue NovoLog per mild algorithm sliding scale. - Vertigo. Give meclizine Problems: Subjective 24 Hr Interval Summary Free Text/Dictation Patient complain of vertigo Exam/Review of Systems Vital Signs Vitals Vital Signs Date Time Temp Pulse Resp B/P Pulse Ox O2 Delivery O2 Flow Rate FiO2 02/07/17 08:12 72 02/07/17 08:08 98.6 17 106/56 94 02/04/17 02:31 Room Air Intake and Output 02/06/17 02/06/17 02/07/17 15:00 23:00 07:00 Intake Total 1300 ml Output Total 1000 ml Balance 300 ml Exam Constitutional: well developed Head: atraumatic, normocephalic Neck: supple Respiratory: clear to auscultation Cardiovascular: regular rate and rhythm Gastrointestinal: non-tender, soft Extremities: normal pulses Results Result Diagram: 02/06/17 0553 02/06/17 0553 Results 24 hrs Laboratory Tests Test 02/06/17 12:23 02/06/17 18:00 02/06/17 20:53 02/07/17 07:58 Bedside Glucose 116 164 124 111 Medications Medications Current Medications Nitroglycerin (Nitroglycerin (Sl Tab) 0.4 Mg) 1 tab Q5M PRN SL ANGINA; Start 02/04/17 at 03:30 Metoprolol Tartrate (Lopressor) 25 mg BID PO Last administered on 02/07/17 08 :02; Admin Dose 25 MG; Start 02/04/17 at 09:00 Enoxaparin Sodium (Lovenox) 40 mg DAILY SC Last administered on 02/07/17 08: 05; Admin Dose 40 MG; Start 02/04/17 at 09:00 Acetaminophen (Tylenol Tab) 650 mg Q4H PRN PO PAIN AND OR ELEVATED TEMP Last administered on 02/06/17 07:22; Admin Dose 650 MG; Start 02/04/17 at 03:30 Hydromorphone HCl (Dilaudid) 1 mg Q3H PRN IV PAIN LEVEL 8-10 Last administered on 02/04/17 11:45; Admin Dose 1 MG; Start 02/04/17 at 03:30 Ondansetron HCl (Zofran Inj) 4 mg Q4H PRN IV NAUSEA AND/OR VOMITING Last administered on 02/04/17 06:13; Admin Dose 4 MG; Start 02/04/17 at 03:30 Pantoprazole (Protonix Tab) 40 mg DAILY@06 PO Last administered on 02/07/17 06:17; Admin Dose 40 MG; Start 02/04/17 at 06:00 Aspirin (Aspirin) 325 mg DAILY PO Last administered on 02/07/17 08:00; Admin Dose 325 MG; Start 02/04/17 at 09:00 Atorvastatin Calcium (Lipitor) 20 mg QHS PO Last administered on 02/06/17 20: 54; Admin Dose 20 MG; Start 02/05/17 at 21:00 Docusate Sodium (Colace) 100 mg BID PO Last administered on 02/07/17 08:02; Admin Dose 100 MG; Start 02/05/17 at 00:00 Lisinopril (Zestril) 5 mg DAILY PO Last administered on 02/07/17 08:03; Admin Dose 5 MG; Start 02/05/17 at 09:00 Diagnostic Test (Pha) (Accu-Chek) 1 ea 02 XX Last administered on 02/06/17 02 :28; Admin Dose 1 EA; Start 02/06/17 at 02:00 Miscellaneous Information 1 ea NOTE XX ; Start 02/05/17 at 18:30 Glucose (Glutose) 15 gm Q15M PRN PO DECREASED GLUCOSE; Start 02/05/17 at 18:30 Glucose (Glutose) 22.5 gm Q15M PRN PO DECREASED GLUCOSE; Start 02/05/17 at 18: 30 Dextrose (D50w Syringe) 25 ml Q15M PRN IV DECREASED GLUCOSE; Start 02/05/17 at 18:30 Dextrose (D50w Syringe) 50 ml Q15M PRN IV DECREASED GLUCOSE; Start 02/05/17 at 18:30 Glucagon (Glucagen) 1 mg Q15M PRN IM DECREASED GLUCOSE; Start 02/05/17 at 18: 30 Glucose 15 gm 15 gm Q15M PRN BUCCAL DECREASED GLUCOSE; Start 02/05/17 at 18:30 Potassium Chloride/Sodium Chloride (NS-KCl 20 Meq) 1,000 ml @ 60 mls/hr [id number] IV ; Start 02/07/17 at 16:00 Meclizine HCl (Antivert) 25 mg Q6H PRN PO dizziness; Start 02/07/17 at 11:30 WAN CLANCY Feb 07, 2017 11:30
[2017-02-07] MEDS: MECLIZINE 25 MG TAB PO PRN ×2 (15:43→22:24)
[2017-02-07] MEDS: NS + KCL 20 MEQ 1,000 ML IV SCH (15:47)
[2017-02-07] MEDS: ACETAMINOPHEN 325 MG TAB PO PRN (16:08)
[2017-02-07] MEDS: ATORVASTATIN 20 MG TAB PO SCH (20:25)
[2017-02-08] VITALS (11 sets, daily range): BP systolic 107–120; BP diastolic 51–68; PULSE 70–77; RESP 16–20
[2017-02-08] MEDS: HYDROmorphONE 0.5 MG/0.5 ML SYG IV PRN (01:23)
[2017-02-08] MEDS: ACCU-CHEK XX SCH (02:00)
[2017-02-08] MEDS: PANTOPRAZOLE (EC) 40 MG TAB PO SCH (05:41)
[2017-02-08 07:59] LABS: BASOPHILS % 0.6 % (0.0-2.0); EOSINOPHILS # 0.2 10^3/ul (0.0-0.5); EOSINOPHILS % 2.6 % (0.0-7.0); HEMOGLOBIN 9.4 g/dl (12.0-16.0); LYMPHOCYTES # 1.5 10^3/ul (0.8-2.9); LYMPHOCYTES % 24.1 % (15.0-51.0); MEAN CORPUSCULAR HEMOGLOBIN 26.9 pg (29.0-33.0); MEAN CORPUSCULAR HGB CONC 32.4 g/dl (32.0-37.0); MEAN CORPUSCULAR VOLUME 82.9 fl (82.0-101.0); MONOCYTE # 0.6 10^3/ul (0.3-0.9); NEUTROPHIL # 3.8 10^3/ul (1.6-7.5); NEUTROPHILS % 62.2 % (39.0-77.0); PLATELET COUNT 283 10^3/UL (140-415); RED CELL DISTRIBUTION WIDTH 14.1 % (11.5-14.5); WHITE BLOOD COUNT 6.2 10^3/ul (4.8-10.8)
[2017-02-08] MEDS: INSULIN ASPART [NOVOLOG] 3 ML PEN SC SCH ×4 (08:00→21:00)
[2017-02-08] MEDS: ASPIRIN 325 MG TAB PO SCH (08:27)
[2017-02-08] MEDS: DOCUSATE SODIUM 100 MG CAP PO SCH ×2 (08:27→21:36)
[2017-02-08] MEDS: LISINOPRIL 5 MG TAB PO SCH (08:27)
[2017-02-08 08:28] LABS: CALCIUM 8.8 mg/dl (8.4-10.2); CREATININE 0.6 mg/dl (0.44-1.00); POTASSIUM 4.1 mmol/L (3.5-5.1)
[2017-02-08] MEDS: NS + KCL 20 MEQ 1,000 ML IV SCH (08:28)
[2017-02-08] MEDS: METOPROLOL 25 MG TAB PO SCH ×2 (08:28→21:37)
[2017-02-08] MEDS: ENOXAPARIN 40 MG/0.4 ML SYG SC SCH (08:44)
[2017-02-08] MEDS: MECLIZINE 25 MG TAB PO PRN (12:46)
[2017-02-08] MEDS: ACETAMINOPHEN 325 MG TAB PO PRN (12:48)
--- NOTE | 2017-02-08 16:42 | PN ---
Date/Time of Note Date/Time of Note DATE: 02/08/17 TIME: 16:33 Assessment/Plan VTE Prophylaxis VTE Prophylaxis Intervention: SCD's Lines/Catheters IV Catheter Type (from Nrs): Peripheral IV Urinary Cath still in place: Yes Reason Cath still needed: urinary retention Assessment/Plan Chief Complaint/Hosp Course Pt denies any chest pain, denies SOB, complains of intermittent dizziness. Assessment/Plan - Chest pain, rule out acute coronary syndrome. CTA is negative for PE. Dr Lucero in following in cardiology consultation. - Recurrent/persistent ovarian cancer, status post secondary cytoreduction surgery by Dr Hayes. - DM with hemoglobin A1c 6.3. Continue NovoLog per mild algorithm sliding scale. - Vertigo, continue Meclizine. Further recommendations based on clinical course. Plan of care discussed with Dr. Phelps. Problems: Exam/Review of Systems Vital Signs Vitals Vital Signs Date Time Temp Pulse Resp B/P Pulse Ox O2 Delivery O2 Flow Rate FiO2 02/08/17 16:04 73 02/08/17 15:52 98.6 19 116/57 92 Intake and Output 02/07/17 02/07/17 02/08/17 15:00 23:00 07:00 Intake Total 1200 ml 900 ml Output Total 1600 ml 400 ml Balance -400 ml 500 ml Exam Constitutional: alert, oriented Respiratory: normal air movement Cardiovascular: nl pulses Gastrointestinal: non-tender, soft Neurological: nl mental status Skin: nl turgor Results Result Diagram: 02/08/1717 02/08/17 0718 Results 24 hrs Laboratory Tests Test 02/07/17 17:30 02/07/17 20:22 02/08/17 07:17 02/08/17 07:18 Bedside Glucose 137 107 White Blood Count 6.2 # Red Blood Count 3.50 L Hemoglobin 9.4 L Hematocrit 29.0 L Mean Corpuscular Volume 82.9 Mean Corpuscular Hemoglobin 26.9 L Mean Corpuscular Hemoglobin Concent 32.4 Red Cell Distribution Width 14.1 Platelet Count 283 # Mean Platelet Volume 10.0 Neutrophils % 62.2 Lymphocytes % 24.1 Monocytes % 10.0 Eosinophils % 2.6 Basophils % 0.6 Nucleated Red Blood Cells % 0.0 Neutrophils # 3.8 Lymphocytes # 1.5 Monocytes # 0.6 Eosinophils # 0.2 Basophils # 0.0 Nucleated Red Blood Cells # 0.0 Sodium Level 138 Potassium Level 4.1 Chloride Level 106 Carbon Dioxide Level 25 Anion Gap 11 Blood Urea Nitrogen 5 L Creatinine 0.60 Glucose Level 113 Calcium Level 8.8 Test 02/08/17 08:25 02/08/17 10:28 02/08/17 12:42 Bedside Glucose 115 173 138 Medications Medications Current Medications Nitroglycerin (Nitroglycerin (Sl Tab) 0.4 Mg) 1 tab Q5M PRN SL ANGINA; Start 02/04/17 at 03:30 Metoprolol Tartrate (Lopressor) 25 mg BID PO Last administered on 02/08/17 08 :28; Admin Dose 25 MG; Start 02/04/17 at 09:00 Enoxaparin Sodium (Lovenox) 40 mg DAILY SC Last administered on 02/08/17 08: 44; Admin Dose 40 MG; Start 02/04/17 at 09:00 Acetaminophen (Tylenol Tab) 650 mg Q4H PRN PO PAIN AND OR ELEVATED TEMP Last administered on 02/08/17 12:48; Admin Dose 650 MG; Start 02/04/17 at 03:30 Hydromorphone HCl (Dilaudid) 1 mg Q3H PRN IV PAIN LEVEL 8-10 Last administered on 02/08/17 01:23; Admin Dose 1 MG; Start 02/04/17 at 03:30 Ondansetron HCl (Zofran Inj) 4 mg Q4H PRN IV NAUSEA AND/OR VOMITING Last administered on 02/04/17 06:13; Admin Dose 4 MG; Start 02/04/17 at 03:30 Pantoprazole (Protonix Tab) 40 mg DAILY@06 PO Last administered on 02/08/17 05:41; Admin Dose 40 MG; Start 02/04/17 at 06:00 Aspirin (Aspirin) 325 mg DAILY PO Last administered on 02/08/17 08:27; Admin Dose 325 MG; Start 02/04/17 at 09:00 Atorvastatin Calcium (Lipitor) 20 mg QHS PO Last administered on 02/07/17 20: 25; Admin Dose 20 MG; Start 02/05/17 at 21:00 Docusate Sodium (Colace) 100 mg BID PO Last administered on 02/08/17 08:27; Admin Dose 100 MG; Start 02/05/17 at 00:00 Lisinopril (Zestril) 5 mg DAILY PO Last administered on 02/08/17 08:27; Admin Dose 5 MG; Start 02/05/17 at 09:00 Diagnostic Test (Pha) (Accu-Chek) 1 ea 02 XX Last administered on 02/06/17 02 :28; Admin Dose 1 EA; Start 02/06/17 at 02:00 Miscellaneous Information 1 ea NOTE XX ; Start 02/05/17 at 18:30 Glucose (Glutose) 15 gm Q15M PRN PO DECREASED GLUCOSE; Start 02/05/17 at 18:30 Glucose (Glutose) 22.5 gm Q15M PRN PO DECREASED GLUCOSE; Start 02/05/17 at 18: 30 Dextrose (D50w Syringe) 25 ml Q15M PRN IV DECREASED GLUCOSE; Start 02/05/17 at 18:30 Dextrose (D50w Syringe) 50 ml Q15M PRN IV DECREASED GLUCOSE; Start 02/05/17 at 18:30 Glucagon (Glucagen) 1 mg Q15M PRN IM DECREASED GLUCOSE; Start 02/05/17 at 18: 30 Glucose 15 gm 15 gm Q15M PRN BUCCAL DECREASED GLUCOSE; Start 02/05/17 at 18:30 Potassium Chloride/Sodium Chloride (NS-KCl 20 Meq) 1,000 ml @ 60 mls/hr [id number] IV Last administered on 02/08/17 08:28; Admin Dose 60 MLS/HR; Start 02/07/17 at 16:00 Meclizine HCl (Antivert) 25 mg Q6H PRN PO dizziness Last administered on 12:46; Admin Dose 25 MG; Start 02/07/17 at 11:30 MATHIEU WALSH Feb 08, 2017 16:42
[2017-02-08] MEDS: ATORVASTATIN 20 MG TAB PO SCH (21:36)
[2017-02-09] VITALS (13 sets, daily range): BP systolic 106–134; BP diastolic 53–64; PULSE 67–95; RESP 19–20
[2017-02-09] MEDS: NS + KCL 20 MEQ 1,000 ML IV SCH ×2 (01:10→17:21)
[2017-02-09] MEDS: ACCU-CHEK XX SCH (01:10)
[2017-02-09] MEDS: ACETAMINOPHEN 325 MG TAB PO PRN ×2 (05:07→21:13)
[2017-02-09] MEDS: PANTOPRAZOLE (EC) 40 MG TAB PO SCH (05:07)
[2017-02-09 07:30] LABS: BASOPHIL # 0.1 10^3/ul (0.0-0.1); BASOPHILS % 0.8 % (0.0-2.0); EOSINOPHILS # 0.1 10^3/ul (0.0-0.5); EOSINOPHILS % 1.5 % (0.0-7.0); HEMATOCRIT 29.5 % (37.0-47.0); HEMOGLOBIN 9.7 g/dl (12.0-16.0); LYMPHOCYTES # 1.5 10^3/ul (0.8-2.9); MEAN CORPUSCULAR HEMOGLOBIN 27.2 pg (29.0-33.0); MEAN CORPUSCULAR HGB CONC 32.9 g/dl (32.0-37.0); MEAN CORPUSCULAR VOLUME 82.9 fl (82.0-101.0); MEAN PLATELET VOLUME 9.7 fl (7.4-10.4); MONOCYTE # 0.7 10^3/ul (0.3-0.9); MONOCYTES % 8.4 % (0.0-11.0); NEUTROPHIL # 5.5 10^3/ul (1.6-7.5); NEUTROPHILS % 69.4 % (39.0-77.0); PLATELET COUNT 305 10^3/UL (140-415); RED BLOOD COUNT 3.56 10^6/ul (4.20-5.40); RED CELL DISTRIBUTION WIDTH 13.8 % (11.5-14.5)
[2017-02-09] MEDS: INSULIN ASPART [NOVOLOG] 3 ML PEN SC SCH ×4 (08:00→21:00)
[2017-02-09 08:06] LABS: CALCIUM 8.6 mg/dl (8.4-10.2); CREATININE 0.57 mg/dl (0.44-1.00); POTASSIUM 4.1 mmol/L (3.5-5.1)
[2017-02-09] MEDS: ENOXAPARIN 40 MG/0.4 ML SYG SC SCH (08:31)
[2017-02-09] MEDS: ASPIRIN 325 MG TAB PO SCH (08:34)
[2017-02-09] MEDS: DOCUSATE SODIUM 100 MG CAP PO SCH ×2 (08:34→21:00)
[2017-02-09] MEDS: LISINOPRIL 5 MG TAB PO SCH (08:35)
[2017-02-09] MEDS: METOPROLOL 25 MG TAB PO SCH ×2 (08:35→21:00)
[2017-02-09] MEDS ORDERED: CEFTRIAXONE 1 GM/50 ML (PMX) 50 ML IVPB SCH (09:00)
[2017-02-09 12:21] LABS: ADD UMIC YES; UR ASCORBIC ACID NEGATIVE (NEGATIVE); UR BACTERIA FEW /HPF (NONE SEEN); UR BILIRUBIN (Dip) NEGATIVE (NEGATIVE); UR BLOOD (Dip) 2+ mg/dL (NEGATIVE); UR CLARITY CLOUDY (CLEAR); UR COLOR YELLOW (YELLOW); UR GLUCOSE (Dip) NEGATIVE (NEGATIVE); UR KETONES (Dip) NEGATIVE (NEGATIVE); UR LEUKOCYTE ESTERASE (Dip) 3+ Leu/ul (NEGATIVE); UR MUCUS MODERATE /HPF (NONE SEEN); UR NITRITE (Dip) POSITIVE (NEGATIVE); UR RBC 63 /HPF (0-5); UR SPECIFIC GRAVITY (Dip) 1.012 (1.003-1.030); UR SQUAMOUS EPITHELIAL CELL FEW /HPF (FEW); UR TOTAL PROTEIN (Dip) 1+ mg/dl (NEGATIVE); UR UROBILINOGEN (Dip) NEGATIVE (NEGATIVE)
[2017-02-09] MEDS: HYDROmorphONE 0.5 MG/0.5 ML SYG IV PRN ×2 (15:22→21:20)
[2017-02-09] MEDS: ONDANSETRON 4 MG INJ IV PRN ×2 (15:27→21:12)
--- NOTE | 2017-02-09 16:38 | PN ---
Date/Time of Note Date/Time of Note DATE: 02/09/17 TIME: 16:37 Assessment/Plan VTE Prophylaxis VTE Prophylaxis Intervention: SCD's Lines/Catheters IV C[facility]ter Type (from [facility]): Peripheral IV Urinary Cath still in place: Yes Reason Cath still needed: urinary retention Assessment/Plan Chief Complaint/Hosp Course Patient spiked fever last night, will obtain urine and blood cultures and chest x-ray, started on Rocephin. Assessment/Plan - Chest pain, rule out acute coronary syndrome. CTA is negative for PE. Dr Lucero in following in cardiology consultation. - Recurrent/persistent ovarian cancer, status post secondary cytoreduction surgery by Dr Hayes. Dr. Jeff is asked to see patient in oncology consultation. - DM with hemoglobin A1c 6.3. Continue NovoLog per mild algorithm sliding scale. - Vertigo, continue Meclizine. Further recommendations based on clinical course. Plan of care discussed with Dr. Phelps. Problems: Exam/Review of Systems Vital Signs Vitals Vital Signs Date Time Temp Pulse Resp B/P Pulse Ox O2 Delivery O2 Flow Rate FiO2 02/09/17 16:00 76 02/09/17 15:46 99.4 19 134/64 97 Intake and Output 02/08/17 02/08/17 02/09/17 15:00 23:00 07:00 Intake Total 620 ml 721 ml Output Total 1800 ml 550 ml Balance -1180 ml 171 ml Exam Constitutional: alert, oriented Respiratory: normal air movement Cardiovascular: nl pulses Gastrointestinal: non-tender, soft Neurological: nl mental status Skin: nl turgor Results Result Diagram: 02/09/17 0702 02/09/17 0702 Results 24 hrs Laboratory Tests Test 02/08/17 17:41 02/08/17 21:35 02/09/17 07:02 02/09/17 08:30 Bedside Glucose 212 152 112 White Blood Count 8.0 # Red Blood Count 3.56 L Hemoglobin 9.7 L Hematocrit 29.5 L Mean Corpuscular Volume 82.9 Mean Corpuscular Hemoglobin 27.2 L Mean Corpuscular Hemoglobin Concent 32.9 Red Cell Distribution Width 13.8 Platelet Count 305 Mean Platelet Volume 9.7 Neutrophils % 69.4 Lymphocytes % 19.0 Monocytes % 8.4 Eosinophils % 1.5 Basophils % 0.8 Nucleated Red Blood Cells % 0.0 Neutrophils # 5.5 Lymphocytes # 1.5 Monocytes # 0.7 Eosinophils # 0.1 Basophils # 0.1 Nucleated Red Blood Cells # 0.0 Sodium Level 139 Potassium Level 4.1 Chloride Level 105 Carbon Dioxide Level 24 Anion Gap 14 Blood Urea Nitrogen 6 L Creatinine 0.57 Glucose Level 116 Calcium Level 8.6 Test 02/09/17 11:25 02/09/17 11:30 Bedside Glucose 169 Urine Color YELLOW Urine Clarity CLOUDY A Urine pH 6.0 Urine Specific [place] 1.012 Urine Ketones NEGATIVE Urine Nitrite POSITIVE A Urine Bilirubin NEGATIVE Urine Urobilinogen NEGATIVE Urine Leukocyte Esterase 3+ H Urine Microscopic RBC 63 H Urine Microscopic WBC > 182 H Urine Squamous Epithelial Cells FEW Urine Bacteria FEW A Urine Mucus MODERATE Urine Hemoglobin 2+ H Urine Glucose NEGATIVE Urine Total Protein 1+ H Medications Medications Current Medications Nitroglycerin (Nitroglycerin (Sl Tab) 0.4 Mg) 1 tab Q5M PRN SL ANGINA; Start 02/04/17 at 03:30 Metoprolol Tartrate (Lopressor) 25 mg BID PO Last administered on 02/09/17 08 :35; Admin Dose 25 MG; Start 02/04/17 at 09:00 Enoxaparin Sodium (Lovenox) 40 mg DAILY SC Last administered on 02/09/17 08: 31; Admin Dose 40 MG; Start 02/04/17 at 09:00 Acetaminophen (Tylenol Tab) 650 mg Q4H PRN PO PAIN AND OR ELEVATED TEMP Last administered on 02/09/17 05:07; Admin Dose 650 MG; Start 02/04/17 at 03:30 Hydromorphone HCl (Dilaudid) 1 mg Q3H PRN IV PAIN LEVEL 8-10 Last administered on 02/09/17 15:22; Admin Dose 1 MG; Start 02/04/17 at 03:30 Ondansetron HCl (Zofran Inj) 4 mg Q4H PRN IV NAUSEA AND/OR VOMITING Last administered on 02/09/17 15:27; Admin Dose 4 MG; Start 02/04/17 at 03:30 Pantoprazole (Protonix Tab) 40 mg DAILY@06 PO Last administered on 02/09/17 05:07; Admin Dose 40 MG; Start 02/04/17 at 06:00 Aspirin (Aspirin) 325 mg DAILY PO Last administered on 02/09/17 08:34; Admin Dose 325 MG; Start 02/04/17 at 09:00 Atorvastatin Calcium (Lipitor) 20 mg QHS PO Last administered on 02/08/17 21: 36; Admin Dose 20 MG; Start 02/05/17 at 21:00 Docusate Sodium (Colace) 100 mg BID PO Last administered on 02/09/17 08:34; Admin Dose 100 MG; Start 02/05/17 at 00:00 Lisinopril (Zestril) 5 mg DAILY PO Last administered on 02/09/17 08:35; Admin Dose 5 MG; Start 02/05/17 at 09:00 Diagnostic Test (Pha) (Accu-Chek) 1 ea 02 XX Last administered on 02/06/17 02 :28; Admin Dose 1 EA; Start 02/06/17 at 02:00 Miscellaneous Information 1 ea NOTE XX ; Start 02/05/17 at 18:30 Glucose (Glutose) 15 gm Q15M PRN PO DECREASED GLUCOSE; Start 02/05/17 at 18:30 Glucose (Glutose) 22.5 gm Q15M PRN PO DECREASED GLUCOSE; Start 02/05/17 at 18: 30 Dextrose (D50w Syringe) 25 ml Q15M PRN IV DECREASED GLUCOSE; Start 02/05/17 at 18:30 Dextrose (D50w Syringe) 50 ml Q15M PRN IV DECREASED GLUCOSE; Start 02/05/17 at 18:30 Glucagon (Glucagen) 1 mg Q15M PRN IM DECREASED GLUCOSE; Start 02/05/17 at 18: 30 Glucose 15 gm 15 gm Q15M PRN BUCCAL DECREASED GLUCOSE; Start 02/05/17 at 18:30 Potassium Chloride/Sodium Chloride (NS-KCl 20 Meq) 1,000 ml @ 60 mls/hr [id number] IV Last administered on 02/08/17 08:28; Admin Dose 60 MLS/HR; Start 02/07/17 at 16:00 Meclizine HCl 25 mg 25 mg Q6H PRN PO dizziness Last administered on 02/08/17 12:46; Admin Dose 25 MG; Start 02/07/17 at 11:30 Ceftriaxone Sodium (Rocephin) 50 ml @ 100 mls/hr Q24H IVPB Last administered on 10/31/17at 08:34; Admin Dose 100 MLS/HR; Start 02/09/17 at 09:00 MATHIEU WALSH Feb 09, 2017 16:38
--- NOTE | 2017-02-09 17:04 | CONS ---
Date/Time of Note Date/Time of Note DATE: 02/09/17 TIME: 17:03 Assessment/Plan Assessment/Plan Additional Assessment/Plan Stress test tomorrow - Full note diced # [id number] Consultation Date/Type/Reason Admit Date/Time Feb 04, 2017 at 00:40 Initial Consult Date Exam/Review of Systems Vital Signs Vitals Vital Signs Date Time Temp Pulse Resp B/P Pulse Ox O2 Delivery O2 Flow Rate FiO2 02/09/17 16:00 76 02/09/17 15:46 99.4 19 134/64 97 Intake and Output 02/08/17 02/08/17 02/09/17 15:00 23:00 07:00 Intake Total 620 ml 721 ml Output Total 1800 ml 550 ml Balance -1180 ml 171 ml Results Result Diagram: 02/09/17 0702 02/09/17 0702 Results 24 hrs Laboratory Tests Test 02/08/17 17:41 02/08/17 21:35 02/09/17 07:02 02/09/17 08:30 Bedside Glucose 212 152 112 White Blood Count 8.0 # Red Blood Count 3.56 L Hemoglobin 9.7 L Hematocrit 29.5 L Mean Corpuscular Volume 82.9 Mean Corpuscular Hemoglobin 27.2 L Mean Corpuscular Hemoglobin Concent 32.9 Red Cell Distribution Width 13.8 Platelet Count 305 Mean Platelet Volume 9.7 Neutrophils % 69.4 Lymphocytes % 19.0 Monocytes % 8.4 Eosinophils % 1.5 Basophils % 0.8 Nucleated Red Blood Cells % 0.0 Neutrophils # 5.5 Lymphocytes # 1.5 Monocytes # 0.7 Eosinophils # 0.1 Basophils # 0.1 Nucleated Red Blood Cells # 0.0 Sodium Level 139 Potassium Level 4.1 Chloride Level 105 Carbon Dioxide Level 24 Anion Gap 14 Blood Urea Nitrogen 6 L Creatinine 0.57 Glucose Level 116 Calcium Level 8.6 Test 02/09/17 11:25 02/09/17 11:30 Bedside Glucose 169 Urine Color YELLOW Urine Clarity CLOUDY A Urine pH 6.0 Urine Specific [place] 1.012 Urine Ketones NEGATIVE Urine Nitrite POSITIVE A Urine Bilirubin NEGATIVE Urine Urobilinogen NEGATIVE Urine Leukocyte Esterase 3+ H Urine Microscopic RBC 63 H Urine Microscopic WBC > 182 H Urine Squamous Epithelial Cells FEW Urine Bacteria FEW A Urine Mucus MODERATE Urine Hemoglobin 2+ H Urine Glucose NEGATIVE Urine Total Protein 1+ H Medications Medications Current Medications Nitroglycerin (Nitroglycerin (Sl Tab) 0.4 Mg) 1 tab Q5M PRN SL ANGINA; Start 02/04/17 at 03:30 Metoprolol Tartrate (Lopressor) 25 mg BID PO Last administered on 02/09/17 08 :35; Admin Dose 25 MG; Start 02/04/17 at 09:00 Enoxaparin Sodium (Lovenox) 40 mg DAILY SC Last administered on 02/09/17 08: 31; Admin Dose 40 MG; Start 02/04/17 at 09:00 Acetaminophen (Tylenol Tab) 650 mg Q4H PRN PO PAIN AND OR ELEVATED TEMP Last administered on 02/09/17 05:07; Admin Dose 650 MG; Start 02/04/17 at 03:30 Hydromorphone HCl (Dilaudid) 1 mg Q3H PRN IV PAIN LEVEL 8-10 Last administered on 02/09/17 15:22; Admin Dose 1 MG; Start 02/04/17 at 03:30 Ondansetron HCl (Zofran Inj) 4 mg Q4H PRN IV NAUSEA AND/OR VOMITING Last administered on 02/09/17 15:27; Admin Dose 4 MG; Start 02/04/17 at 03:30 Pantoprazole (Protonix Tab) 40 mg DAILY@06 PO Last administered on 02/09/17 05:07; Admin Dose 40 MG; Start 02/04/17 at 06:00 Aspirin (Aspirin) 325 mg DAILY PO Last administered on 02/09/17 08:34; Admin Dose 325 MG; Start 02/04/17 at 09:00 Atorvastatin Calcium (Lipitor) 20 mg QHS PO Last administered on 02/08/17 21: 36; Admin Dose 20 MG; Start 02/05/17 at 21:00 Docusate Sodium (Colace) 100 mg BID PO Last administered on 02/09/17 08:34; Admin Dose 100 MG; Start 02/05/17 at 00:00 Lisinopril (Zestril) 5 mg DAILY PO Last administered on 02/09/17 08:35; Admin Dose 5 MG; Start 02/05/17 at 09:00 Diagnostic Test (Pha) (Accu-Chek) 1 ea 02 XX Last administered on 02/06/17 02 :28; Admin Dose 1 EA; Start 02/06/17 at 02:00 Miscellaneous Information 1 ea NOTE XX ; Start 02/05/17 at 18:30 Glucose (Glutose) 15 gm Q15M PRN PO DECREASED GLUCOSE; Start 02/05/17 at 18:30 Glucose (Glutose) 22.5 gm Q15M PRN PO DECREASED GLUCOSE; Start 02/05/17 at 18: 30 Dextrose (D50w Syringe) 25 ml Q15M PRN IV DECREASED GLUCOSE; Start 02/05/17 at 18:30 Dextrose (D50w Syringe) 50 ml Q15M PRN IV DECREASED GLUCOSE; Start 02/05/17 at 18:30 Glucagon (Glucagen) 1 mg Q15M PRN IM DECREASED GLUCOSE; Start 02/05/17 at 18: 30 Glucose 15 gm 15 gm Q15M PRN BUCCAL DECREASED GLUCOSE; Start 02/05/17 at 18:30 Potassium Chloride/Sodium Chloride (NS-KCl 20 Meq) 1,000 ml @ 60 mls/hr [id number] IV Last administered on 02/08/17 08:28; Admin Dose 60 MLS/HR; Start 02/07/17 at 16:00 Meclizine HCl 25 mg 25 mg Q6H PRN PO dizziness Last administered on 02/08/17 12:46; Admin Dose 25 MG; Start 02/07/17 at 11:30 Ceftriaxone Sodium (Rocephin) 50 ml @ 100 mls/hr Q24H IVPB Last administered on 02/09/17 08:34; Admin Dose 100 MLS/HR; Start 02/09/17 at 09:00 JANUARY YU MD Feb 09, 2017 17:04
[2017-02-09] MEDS: ATORVASTATIN 20 MG TAB PO SCH (21:00)
--- NOTE | 2017-02-09 21:24 | RADRPT ---
PROCEDURE: XR Chest. CLINICAL INDICATION: Shortness of breath. TECHNIQUE: Single frontal view. COMPARISON: 02/03/2017. FINDINGS: The tunneled right internal jugular vein implanted port central venous catheter is in satisfactory p osition with the tip in the cavoatrial junction region. There is mild atelectasis at both lung bases . The lungs are otherwise clear. The heart is enlarged. There is calcification in the aorta consistent with atherosclerosis. There is no pleural effusion. There is no pneumothorax. IMPRESSION: 1. No change from the 02/03/2017 chest radiograph. RPTAT: QQ .Grover Ayala MD, Date Time Electronically viewed and signed by .Grover Ayala MD, on 02/09/2017 21:24 .R/
[2017-02-10] VITALS (8 sets, daily range): BP systolic 101–133; BP diastolic 52–59; PULSE 68–79; RESP 18–21
--- NOTE | 2017-02-10 01:32 | CONS ---
DATE OF ADMISSION: 02/04/2017 DATE OF CONSULTATION: 02/09/2017 CARDIOLOGY CONSULTATION REFERRING PHYSICIAN: Coby Kramer MD REASON FOR EVALUATION: Chest pain. HISTORY OF PRESENT ILLNESS: Ms. Stein is a 61-year-old woman with history of hypertension, border line diabetes, who comes to the hospital now for evaluation of chest discomfort. The patient alread y had a 2D echo which was interpreted by Dr. Lucero, which showed ejection fraction about 55%. She is chest pain free. The patient does have history of chest pains prior. She has some risk factors of coronary artery disease, so I think it would be reasonable to risk stratify her with stress test , which we are going to facilitate while she is in the hospital. PAST MEDICAL HISTORY: 1. Hypertension. 2. Dyslipidemia. 3. Borderline diabetes. 4. Hypertension. 5. Anemia. ALLERGIES: NO KNOWN DRUG ALLERGIES. SOCIAL HISTORY: The patient does not smoke, does not drink, does not use any drugs. FAMILY HISTORY: Negative for sudden cardiac or premature coronary artery disease. MEDICATIONS: Medications here include: 1. Cefepime. 2. Glucose. 3. Insulin sliding scale. 4. Lisinopril 5 mg p.o. once a day. 5. Metoprolol tartrate 25 mg b.i.d. 6. Aspirin 325 mg. 7. Pantoprazole. 8. Nitroglycerins. 9. Hydromorphone. REVIEW OF SYSTEMS: CONSTITUTIONAL: No fevers, no chills, no shortness of breath. HEENT: No changes in vision or hearing. CARDIAC: No chest pain reported now. RESPIRATORY: No shortness of breath. GASTROINTESTINAL: No nausea, vomiting, diarrhea, constipation. GENITOURINARY: No dysuria, hematuria. NEUROLOGIC: No focal neurologic deficit. PSYCHIATRIC: No known history of psychiatric illness. PHYSICAL EXAMINATION: VITAL SIGNS: Temperature 98.4, heart rate 72, blood pressure 164/64. GENERAL: She is a well-nourished woman in no acute distress, alert and oriented x3, aware of her co ndition. HEAD: Normocephalic, atraumatic. EYES: Anicteric. NECK: Supple. JVD 7 to 8 cm. There is no lymphadenopathy. HEART: Regular with soft holosystolic murmur at the apex. PMI is nondisplaced. There is no S3. LUNGS: Coarse. ABDOMEN: Distended, bowel sounds are present. There is no hepatosplenomegaly. GENITOURINARY: Grossly intact. EXTREMITIES: Show no clubbing, cyanosis or edema. LABORATORY DATA: ECG read by me shows sinus rhythm with some nonspecific changes. White blood cell count 8.0, hemoglobin 9.7, platelets 305. INR is 1.2. Sodium 139, potassium 4.1, BUN 6, creatinin e 0.9. ASSESSMENT AND PLAN: 1. Chest pain. The patient's chest pain does not appear to be an acute ischemic event right now. For now, conservative treatment is expected. We will risk stratify her with stress test while josette cosby is in hospital. 2. Hypertension. Blood pressure is modestly well controlled. We will continue to optimize medical therapy as needed. 3. Borderline diabetes. Weight loss advised. Continue management per primary team. 4. Abnormal EKG, nonspecific ST changes noted. 5. Tachycardia. Sinus tachycardia, better now. I would like to thank Dr. Kramer for referring this patient for my evaluation. Dictated By: JANUARY YU MD ML/RADHA Conf#: [id number] DID#: [id number] CC: COBY KRAMER MD;*EndCC*
[2017-02-10] MEDS: ACCU-CHEK XX SCH (02:00)
[2017-02-10] MEDS: PANTOPRAZOLE (EC) 40 MG TAB PO SCH (05:22)
[2017-02-10] MEDS: INSULIN ASPART [NOVOLOG] 3 ML PEN SC SCH ×4 (08:00→21:00)
[2017-02-10] MEDS ORDERED: VANCOMYCIN IV PER PHARMACY XX SCH (08:30)
[2017-02-10] MEDS: DOCUSATE SODIUM 100 MG CAP PO SCH ×2 (08:37→21:09)
[2017-02-10] MEDS: ASPIRIN 325 MG TAB PO SCH (08:38)
[2017-02-10] MEDS: LISINOPRIL 5 MG TAB PO SCH (08:38)
[2017-02-10] MEDS: METOPROLOL 25 MG TAB PO SCH ×2 (08:38→21:00)
[2017-02-10] MEDS: ACETAMINOPHEN 325 MG TAB PO PRN (08:40)
[2017-02-10] MEDS: ENOXAPARIN 40 MG/0.4 ML SYG SC SCH (08:40)
[2017-02-10] MEDS: ONDANSETRON 4 MG INJ IV PRN ×2 (08:43→17:16)
[2017-02-10] MEDS: MEROPENEM 1 GM/50ML(PMX) 50 ML IVPB SCH ×3 (09:22→23:33)
[2017-02-10] MEDS ORDERED: VANCOMYCIN 1.25 GM in SOD CHLORIDE 0.9% 250 ML IVPB ONE (11:00)
[2017-02-10] MEDS ORDERED: REGADENOSON 0.4 MG/5 ML SYG ONE (12:54)
--- NOTE | 2017-02-10 13:18 | CONS ---
Date/Time of Note Date/Time of Note DATE: 02/10/17 TIME: 13:13 Assessment/Plan Assessment/Plan Chief Complaint/Hosp Course IMp: 1.Chest pain-negatve trop x 3/NL EF by echo this admit 2.HTN 3.UTI 4.abnl ecg 5. fevers 6.DM 7.Ovarian ca 8. Dylslipidemia Recc: -tele -serial ecg's -continue BB -contineu asa -continue statin -lexiscan stress test today -Continue abx's and f/u cx data Problems: Consultation Date/Type/Reason Admit Date/Time Feb 04, 2017 at 00:40 Initial Consult Date 02/09/17 Type of Consultation: cardiology Reason for Consultation chest pain Referring Provider: COBY KRAMER MD Exam/Review of Systems Vital Signs Vitals Vital Signs Date Time Temp Pulse Resp B/P Pulse Ox O2 Delivery O2 Flow Rate FiO2 02/10/17 08:13 79 02/10/17 08:02 102.4 18 133/59 92 Intake and Output 02/09/17 02/09/17 02/10/17 15:00 23:00 07:00 Intake Total 50 ml 700 ml Balance 50 ml 700 ml Exam Review of Systems: CONSTITUTIONAL: No fevers, chills. PULMONARY: No sob CARDIOVASCULAR: intermittent chest pain GASTROINTESTINAL: No nausea/vomiting. GENITOURINARY: No hematuria/dysuria. MUSCULOSKELETAL: No myagias/arthalgias. PSYCHIATRIC: The patient denies depression. NEUROLOGIC: No weakness Constitutional: alert Psych: no complaints Head: normocephalic ENMT: mucosa pink and moist Neck: jvd (8-9 cm water), supple Respiratory: clear to auscultation Cardiovascular: regular rate and rhythm Gastrointestinal: non-tender, soft Musculoskeletal: muscle tone (normal) Extremities: edema (none) Results Result Diagram: 02/09/17 0702 02/09/17 0702 Results 24 hrs Laboratory Tests Test 02/09/17 17:19 02/09/17 21:12 02/10/17 08:37 Bedside Glucose 126 155 115 Medications Medications Current Medications Nitroglycerin (Nitroglycerin (Sl Tab) 0.4 Mg) 1 tab Q5M PRN SL ANGINA; Start 02/04/17 at 03:30 Metoprolol Tartrate (Lopressor) 25 mg BID PO Last administered on 02/10/17 08: 38; Admin Dose 25 MG; Start 02/04/17 at 09:00 Enoxaparin Sodium (Lovenox) 40 mg DAILY SC Last administered on 02/10/17 08:40 ; Admin Dose 40 MG; Start 02/04/17 at 09:00 Acetaminophen (Tylenol Tab) 650 mg Q4H PRN PO PAIN AND OR ELEVATED TEMP Last administered on 02/10/17 08:40; Admin Dose 650 MG; Start 02/04/17 at 03:30 Hydromorphone HCl (Dilaudid) 1 mg Q3H PRN IV PAIN LEVEL 8-10 Last administered on 02/09/17 21:20; Admin Dose 1 MG; Start 02/04/17 at 03:30 Ondansetron HCl (Zofran Inj) 4 mg Q4H PRN IV NAUSEA AND/OR VOMITING Last administered on 02/10/17 08:43; Admin Dose 4 MG; Start 02/04/17 at 03:30 Pantoprazole (Protonix Tab) 40 mg DAILY@06 PO Last administered on 02/10/17 05 :22; Admin Dose 40 MG; Start 02/04/17 at 06:00 Aspirin (Aspirin) 325 mg DAILY PO Last administered on 02/10/17 08:38; Admin Dose 325 MG; Start 02/04/17 at 09:00 Atorvastatin Calcium (Lipitor) 20 mg QHS PO Last administered on 02/09/17 21: 00; Admin Dose 20 MG; Start 02/05/17 at 21:00 Docusate Sodium (Colace) 100 mg BID PO Last administered on 02/10/17 08:37; Admin Dose 100 MG; Start 02/05/17 at 00:00 Lisinopril (Zestril) 5 mg DAILY PO Last administered on 02/10/17 08:38; Admin Dose 5 MG; Start 02/05/17 at 09:00 Diagnostic Test (Pha) (Accu-Chek) 1 ea 02 XX Last administered on 02/06/17 02 :28; Admin Dose 1 EA; Start 02/06/17 at 02:00 Miscellaneous Information 1 ea NOTE XX ; Start 02/05/17 at 18:30 Glucose (Glutose) 15 gm Q15M PRN PO DECREASED GLUCOSE; Start 02/05/17 at 18:30 Glucose (Glutose) 22.5 gm Q15M PRN PO DECREASED GLUCOSE; Start 02/05/17 at 18: 30 Dextrose (D50w Syringe) 25 ml Q15M PRN IV DECREASED GLUCOSE; Start 02/05/17 at 18:30 Dextrose (D50w Syringe) 50 ml Q15M PRN IV DECREASED GLUCOSE; Start 02/05/17 at 18:30 Glucagon (Glucagen) 1 mg Q15M PRN IM DECREASED GLUCOSE; Start 02/05/17 at 18: 30 Glucose 15 gm 15 gm Q15M PRN BUCCAL DECREASED GLUCOSE; Start 02/05/17 at 18:30 Potassium Chloride/Sodium Chloride (NS-KCl 20 Meq) 1,000 ml @ 60 mls/hr [id number] IV Last administered on 02/09/17 17:21; Admin Dose 60 MLS/HR; Start 02/07/17 at 16:00 Meclizine HCl 25 mg 25 mg Q6H PRN PO dizziness Last administered on 02/08/17 12:46; Admin Dose 25 MG; Start 02/07/17 at 11:30 Meropenem/Sodium Chloride 50 ml @ 100 mls/hr Q8 IVPB Last administered on 02/10 09:22; Admin Dose 100 MLS/HR; Start 02/10/17 at 10:00 Vancomycin HCl 1.25 gm/Sodium Chloride 250 ml @ 83.333 mls/ hr ONCE ONCE IVPB ; Start 02/10/17 at 11:00; Stop 02/10/17 at 13:59 Vancomycin HCl/ Dextrose/Water (Vancocin/D5W) 150 ml @ 75 mls/hr Q12H IVPB ; Start 02/10/17 at 23:00 CHRIS FINK Feb 10, 2017 13:18
[2017-02-10] MEDS: NS + KCL 20 MEQ 1,000 ML IV SCH (14:34)
--- NOTE | 2017-02-10 15:54 | CONS ---
DATE OF ADMISSION: 02/04/2017 DATE OF CONSULTATION: REQUESTING PHYSICIAN: Dr. Phelps. REASON FOR CONSULTATION: Ovarian carcinoma. Dear Dr. Phelps: Thank you very much for asking us to see this very interesting and pleasant patient in oncologic con sultation. As you know, Ms. Stein is a 61-year-old female with recurrent ovarian carcinoma. She has been under the care of my partner, Dr. Ankit Jeff since the time of her original diagnosis. The patient has, in the past, had chemotherapy with a combination of carboplatin and paclitaxel. S he did well and had a "second look" procedure in October of 2016. Apparently there was no evidence of disease at that time. Recently, however, the patient has had evidence of recurrent disease and in fact did undergo another cytoreductive surgery on 01/14/2017. At that time, there was the finding of a metastatic high grad e serous carcinoma. The patient was to be seen actually today as an outpatient to start a new course of chemotherapy inc luding carboplatin and gemcitabine. The patient, however, was readmitted to [facility] on 02/03/2017. The patient at that time was complaining of some nonexertional chest pain and shortness of breath for approximately 2 days. This had been associated with some nausea and vomiting. The patient at the time of her admission did not complain of any fevers or chills. She has, however , had a temperature elevation during this hospitalization. Today, her maximal temperature was 102.4 at 8:00 this morning. Cultures have demonstrated the patient has greater than 100,000 colonies of Enterococcus species. The sensitivities are not yet available. Evaluation has not detected any evidence of cardiac etiology for the patient's chest pain. Actually , the patient states now that the chest pain has changed to some degree and is now located on the ri ght side in the subscapular area and is somewhat pleuritic in nature. The patient did have a CT ang iogram of the chest and there was no evidence of pulmonary emboli. There was evidence of trace left -sided pleural effusion and small amount of ascites. Chest x-ray done on 02/09/2017 showed the evid ence of the Port-A-Cath in place, but no other significant abnormalities. On admission, the patient had a white count of 8900 with a hemoglobin 11.3, hematocrit 33 and platel et count of 321,000. Chemistry panel is basically within normal limits. Creatinine is 0.65 and BUN is 6. On admission, the CMP was normal except for an alkaline phosphatase of 137. Total protein w as 8.5, albumin was 4.3. As noted, the patient's past history does include the history of ovarian c arcinoma. Other medical problems have included type 2 diabetes mellitus. The patient has also had hypertension and hypercholesterolemia. There is also history of coronary artery disease. ALLERGIES: NO KNOWN ALLERGIES. PHYSICAL EXAMINATION GENERAL: At this time reveals a well-developed, well-nourished female who is in no acute distress. VITAL SIGNS: Temperature 102.4, pulse 80 per minute and regular, respirations 18, blood pressure 13 3/59, pulse oximetry is 92% on room air. SKIN: No ecchymoses. No petechiae or rashes. HEENT: Normocephalic. No evidence of trauma. The pupils are equal, round, react to light and acco mmodation. Sclerae are nonicteric. Oral mucosa is moist without lesions. Tongue is well papillate d. There is no gingival hyperplasia, no hypertrophy of Waldeyer's ring. NECK: Supple, no jugular venous distention or thyroid enlargement. CHEST: Clear to auscultation and percussion except for some decreased breath sounds in the left bas e as compared to the right. There are no rhonchi, wheezes, rales or rubs. There is no pain on perc ussion of spine, sternum, clavicles or ribs. There is a Port-A-Cath implanted in the right anterior chest wall in the subclavicular area. HEART: Regular sinus rhythm, no S3, S4 murmurs. No rubs. BREASTS: Symmetrical. No masses, skin retraction, or nipple inversion. ABDOMEN: Soft with no masses, no ascites. Bowel sounds are active. There is evidence of recent herrera rgical incision which is well healed. There are no hernia defects. EXTREMITIES: Good range of motion, no clubbing, edema or cyanosis. No palpable cords or Homans sig n. NEUROLOGIC: Appears normal. There is no nystagmus. DISCUSSION: As noted, this patient was scheduled to start chemotherapy today with a new combination of carboplatin and gemcitabine. Unfortunately, this will have to be delayed because of the patient 's urinary tract infection. The patient is presently receiving both vancomycin and meropenem. She previously was on ceftriaxone, but this has been discontinued. The urinary tract infection is due t o enterococcus species, but the sensitivities have not yet been reported. Besides the symptoms related to fever, patient also complains of some "dizziness." She states this is present when she lies on her side or turns to the right. This is not associated with diplopia. As noted, the patient has no abnormalities on physical examination. There is no nystagmus. No atax ia is noted. If the above symptoms do not resolve with treatment of the infection, then further studies may need to be done. Once again, thank you very much for the opportunity of participating in the medical care of this dontae y interesting and pleasant patient. I will be happy to follow this patient with you and assist in h er oncologic evaluation and follow up as necessary. Dictated By: DAVID MESA MD, SR/RADHA Conf#: [id number] DID#: [id number]
--- NOTE | 2017-02-10 15:56 | RADRPT ---
PROCEDURE: Lexiscan myocardial perfusion study CLINICAL INDICATION: 61 -year-old patient complaining of chest pain. TECHNIQUE: Lexiscan 0.4 mg intravenously separate acquisition gated myocardial perfusion SPECT usi ng Tc 99m Myoview 31.7 mCi intravenously at stress and Tc-99m Myoview, 9.5 mCi intravenously at rest was performed using the rest/stress sequence. Poststress Myoview SPECT images were obtained in the supine position. COMPARISON: No prior studies. FINDINGS: Perfusion images reveal no evidence of perfusion defects. Lexiscan post stress gated SPECT images demonstrate no wall motion abnormalities. IMPRESSION: 1. No evidence of perfusion defects. 2. No wall motion abnormalities. 3. The left ventricle ejection fraction at stress is 66%. A call report was made to Dr. Lucero on February 10, 2017 at 03:54 p.m. RPTAT: HH .Sabrian Long MD, Date Time Electronically viewed and signed by .Sabrina Long MD, on 02/10/2017 15:56 .L/
--- NOTE | 2017-02-10 17:21 | PN ---
Date/Time of Note Date/Time of Note DATE: 02/10/17 TIME: 17:18 Assessment/Plan VTE Prophylaxis VTE Prophylaxis Intervention: SCD's Lines/Catheters IV [facility] Type ([facility] Peripheral IV Urinary Cath still in place: No Assessment/Plan Chief Complaint/Hosp Course Patient's continues to spike fever, antibiotics changed to vancomycin and meropenem, patient complains of dizziness, continue telemetry monitoring. Assessment/Plan -UTI, continue antibiotics, follow up on final cultures. - Chest pain, rule out acute coronary syndrome. CTA is negative for PE. Dr Lucero in following in cardiology consultation. - Recurrent/persistent ovarian cancer, status post secondary cytoreduction surgery by Dr Hayes. Dr. Bang is following in oncology consultation. - DM with hemoglobin A1c 6.3. Continue NovoLog per mild algorithm sliding scale. - Vertigo, continue Meclizine. Further recommendations based on clinical course. Plan of care discussed with Dr. Phelps. Problems: Exam/Review of Systems Vital Signs Vitals Vital Signs Date Time Temp Pulse Resp B/P Pulse Ox O2 Delivery O2 Flow Rate FiO2 02/10/17 16:14 73 02/10/17 16:00 98.0 21 107/58 94 Intake and Output 02/09/17 02/09/17 02/10/17 15:00 23:00 07:00 Intake Total 50 ml 700 ml Balance 50 ml 700 ml Exam Constitutional: alert, oriented Respiratory: normal air movement Cardiovascular: nl pulses Gastrointestinal: non-tender, soft Neurological: nl mental status Skin: nl turgor Results Result Diagram: 02/09/17 0702 02/09/17 0702 Results 24 hrs Laboratory Tests Test 02/09/17 17:19 02/09/17 21:12 02/10/17 08:37 02/10/17 14:31 Bedside Glucose 126 155 115 154 Medications Medications Current Medications Nitroglycerin (Nitroglycerin (Sl Tab) 0.4 Mg) 1 tab Q5M PRN SL ANGINA; Start 02/04/17 at 03:30 Metoprolol Tartrate (Lopressor) 25 mg BID PO Last administered on 02/10/17 08: 38; Admin Dose 25 MG; Start 02/04/17 at 09:00 Enoxaparin Sodium (Lovenox) 40 mg DAILY SC Last administered on 02/10/17 08:40 ; Admin Dose 40 MG; Start 02/04/17 at 09:00 Acetaminophen (Tylenol Tab) 650 mg Q4H PRN PO PAIN AND OR ELEVATED TEMP Last administered on 02/10/17 08:40; Admin Dose 650 MG; Start 02/04/17 at 03:30 Hydromorphone HCl (Dilaudid) 1 mg Q3H PRN IV PAIN LEVEL 8-10 Last administered on 02/09/17 21:20; Admin Dose 1 MG; Start 02/04/17 at 03:30 Ondansetron HCl (Zofran Inj) 4 mg Q4H PRN IV NAUSEA AND/OR VOMITING Last administered on 02/10/17 17:16; Admin Dose 4 MG; Start 02/04/17 at 03:30 Pantoprazole (Protonix Tab) 40 mg DAILY@06 PO Last administered on 02/10/17 05 :22; Admin Dose 40 MG; Start 02/04/17 at 06:00 Aspirin (Aspirin) 325 mg DAILY PO Last administered on 02/10/17 08:38; Admin Dose 325 MG; Start 02/04/17 at 09:00 Atorvastatin Calcium (Lipitor) 20 mg QHS PO Last administered on 02/09/17 21: 00; Admin Dose 20 MG; Start 02/05/17 at 21:00 Docusate Sodium (Colace) 100 mg BID PO Last administered on 02/10/17 08:37; Admin Dose 100 MG; Start 02/05/17 at 00:00 Lisinopril (Zestril) 5 mg DAILY PO Last administered on 02/10/17 08:38; Admin Dose 5 MG; Start 02/05/17 at 09:00 Diagnostic Test (Pha) (Accu-Chek) 1 ea 02 XX Last administered on 02/06/17 02 :28; Admin Dose 1 EA; Start 02/06/17 at 02:00 Miscellaneous Information 1 ea NOTE XX ; Start 02/05/17 at 18:30 Glucose (Glutose) 15 gm Q15M PRN PO DECREASED GLUCOSE; Start 02/05/17 at 18:30 Glucose (Glutose) 22.5 gm Q15M PRN PO DECREASED GLUCOSE; Start 02/05/17 at 18: 30 Dextrose (D50w Syringe) 25 ml Q15M PRN IV DECREASED GLUCOSE; Start 02/05/17 at 18:30 Dextrose (D50w Syringe) 50 ml Q15M PRN IV DECREASED GLUCOSE; Start 02/05/17 at 18:30 Glucagon (Glucagen) 1 mg Q15M PRN IM DECREASED GLUCOSE; Start 02/05/17 at 18: 30 Glucose 15 gm 15 gm Q15M PRN BUCCAL DECREASED GLUCOSE; Start 02/05/17 at 18:30 Potassium Chloride/Sodium Chloride (NS-KCl 20 Meq) 1,000 ml @ 60 mls/hr [id number] IV Last administered on 02/10/17 14:34; Admin Dose 60 MLS/HR; Start 02/07/17 at 16:00 Meclizine HCl 25 mg 25 mg Q6H PRN PO dizziness Last administered on 02/08/17 12:46; Admin Dose 25 MG; Start 02/07/17 at 11:30 Meropenem/Sodium Chloride 50 ml @ 100 mls/hr Q8 IVPB Last administered on 02/10 17:16; Admin Dose 100 MLS/HR; Start 02/10/17 at 10:00 Vancomycin HCl/ Dextrose/Water (Vancocin/D5W) 150 ml @ 75 mls/hr Q12H IVPB ; Start 02/10/17 at 23:00 MATHIEU WALSH Feb 10, 2017 17:21
[2017-02-10] MEDS: ATORVASTATIN 20 MG TAB PO SCH (21:09)
[2017-02-10] MEDS: VANCOMYCIN 750 MG in DEXTROSE 5% 150 ML IVPB SCH (23:33)
[2017-02-11] VITALS (12 sets, daily range): BP systolic 90–138; BP diastolic 45–75; PULSE 63–80; RESP 16–21
[2017-02-11] MEDS: ACCU-CHEK XX SCH (01:02)
[2017-02-11] MEDS: HYDROmorphONE 0.5 MG/0.5 ML SYG IV PRN (01:16)
[2017-02-11] MEDS: ONDANSETRON 4 MG INJ IV PRN (01:16)
--- NOTE | 2017-02-11 01:45 | CARRPT ---
DATE OF PROCEDURE: 02/10/2017 TYPE OF PROCEDURE: Lexiscan Cardiolite stress test, electrocardiogram portion. ATTENDING PHYSICIAN: Chris Lucero MD REFERRING PHYSICIAN: Coby Kramer MD INDICATIONS: Chest pain, assess for ischemia. BASELINE VITAL SIGNS AND ELECTROCARDIOGRAM: Pulse 61, blood pressure 116/54. Electrocardiogram rev eals normal sinus rhythm at a rate of 60, normal axis, normal intervals, T-wave flattening in aVL. PROCEDURE: The patient underwent standard Lexiscan infusion protocol for 10 seconds followed by rad iolabeled tracer. The patient's test was stopped due to completion of protocol. Maximal achieved b lood pressure during the test 121/65. Maximal achieved heart rate during the test 81. ELECTROCARDIOGRAM FINDINGS: The patient did not develop any new Lexiscan-induced ST or T-wave jonas es from baseline abnormalities. No documented PVCs. SYMPTOMS: The patient had mild complaints of chest pain or shortness of breath during stress testin g, and nausea, which resolved in recovery. IMPRESSION: 1. No Lexiscan-induced ST or T-wave changes from baseline abnormalities or diagnostic cardiac ische corrina. 2. Complaints of chest pain and nausea during stress testing, resolved in recovery. 3. No documented premature ventricular contractions during stress testing. 4. Report of nuclear images to follow in separate dictation. Dictated By: CHRIS RAO/RADHA Conf#: [id number] DID#: [id number] CC: COBY KRAMER MD;*EndCC*
[2017-02-11] MEDS: NS + KCL 20 MEQ 1,000 ML IV SCH ×2 (03:20→21:59)
[2017-02-11] MEDS: PANTOPRAZOLE (EC) 40 MG TAB PO SCH (05:59)
[2017-02-11] MEDS: MEROPENEM 1 GM/50ML(PMX) 50 ML IVPB SCH ×2 (05:59→14:19)
[2017-02-11 07:19] LABS: BASOPHIL # 0.1 10^3/ul (0.0-0.1); BASOPHILS % 0.8 % (0.0-2.0); EOSINOPHILS # 0.2 10^3/ul (0.0-0.5); EOSINOPHILS % 2.7 % (0.0-7.0); HEMATOCRIT 28.2 % (37.0-47.0); HEMOGLOBIN 9.4 g/dl (12.0-16.0); LYMPHOCYTES # 1.5 10^3/ul (0.8-2.9); LYMPHOCYTES % 20.9 % (15.0-51.0); MEAN CORPUSCULAR HEMOGLOBIN 28.1 pg (29.0-33.0); MEAN CORPUSCULAR HGB CONC 33.3 g/dl (32.0-37.0); MEAN CORPUSCULAR VOLUME 84.4 fl (82.0-101.0); MEAN PLATELET VOLUME 9.6 fl (7.4-10.4); MONOCYTE # 0.6 10^3/ul (0.3-0.9); MONOCYTES % 8.1 % (0.0-11.0); NEUTROPHIL # 4.9 10^3/ul (1.6-7.5); PLATELET COUNT 373 10^3/UL (140-415); RED BLOOD COUNT 3.34 10^6/ul (4.20-5.40); RED CELL DISTRIBUTION WIDTH 13.9 % (11.5-14.5); WHITE BLOOD COUNT 7.3 10^3/ul (4.8-10.8)
[2017-02-11 07:53] LABS: CALCIUM 8.4 mg/dl (8.4-10.2); CREATININE 0.62 mg/dl (0.44-1.00); POTASSIUM 4.3 mmol/L (3.5-5.1)
[2017-02-11] MEDS: INSULIN ASPART [NOVOLOG] 3 ML PEN SC SCH ×4 (08:00→21:00)
[2017-02-11] MEDS: DOCUSATE SODIUM 100 MG CAP PO SCH ×2 (08:48→21:55)
[2017-02-11] MEDS: LISINOPRIL 5 MG TAB PO SCH (08:49)
[2017-02-11] MEDS: ASPIRIN 325 MG TAB PO SCH (08:49)
[2017-02-11] MEDS: METOPROLOL 25 MG TAB PO SCH ×2 (08:49→21:56)
[2017-02-11] MEDS: ENOXAPARIN 40 MG/0.4 ML SYG SC SCH (08:52)
[2017-02-11] MEDS: VANCOMYCIN 750 MG in DEXTROSE 5% 150 ML IVPB SCH (12:02)
--- NOTE | 2017-02-11 12:34 | PN ---
Date/Time of Note Date/Time of Note DATE: 02/11/17 TIME: 12:31 Assessment/Plan VTE Prophylaxis VTE Prophylaxis Intervention: other Lines/Catheters [facility] Type [facility] Peripheral IV Urinary Cath still in place: No Assessment/Plan Assessment/Plan - UTI, continue antibiotics, follow up on final cultures. - Chest pain, rule out acute coronary syndrome. CTA is negative for PE. Dr Lucero in following in cardiology consultation. - Recurrent/persistent ovarian cancer, status post secondary cytoreduction surgery by Dr Hayes. Dr. Bang is following in oncology consultation. - DM with hemoglobin A1c 6.3. Continue NovoLog per mild algorithm sliding scale. - Vertigo, continue Meclizine. Further recommendations based on clinical course. Plan of care discussed with Dr. Phelps. Subjective 24 Hr Interval Summary Free Text/Dictation resting, c/o dizziness, afebrile, no fall/injury- staff Constitutional: requiring O2 Respiratory: no complaints Cardiovascular: no complaints Gastrointestinal: no complaints Genitourinary: no complaints Musculoskeletal: no complaints Exam/Review of Systems Vital Signs Vitals Vital Signs Date Time Temp Pulse Resp B/P Pulse Ox O2 Delivery O2 Flow Rate FiO2 02/11/17 12:01 98.4 66 21 98/75 92 Intake and Output 02/10/17 02/10/17 02/11/17 15:00 23:00 07:00 Intake Total 1050 ml 1280 ml 700 ml Balance 1050 ml 1280 ml 700 ml Exam Constitutional: alert, oriented, well developed Respiratory: diminished breath sounds Cardiovascular: nl pulses, other (s1s2) Gastrointestinal: non-tender, soft Musculoskeletal: nl extremities to inspection Extremities: normal pulses Neurological: nl mental status, nl speech Results Result Diagram: 02/11/1728 02/11/1728 Results 24 hrs Laboratory Tests Test 02/10/17 14:31 02/10/17 17:15 02/10/17 21:11 02/11/17 06:28 Bedside Glucose 154 116 127 White Blood Count 7.3 Red Blood Count 3.34 L Hemoglobin 9.4 L Hematocrit 28.2 L Mean Corpuscular Volume 84.4 Mean Corpuscular Hemoglobin 28.1 L Mean Corpuscular Hemoglobin Concent 33.3 Red Cell Distribution Width 13.9 Platelet Count 373 # Mean Platelet Volume 9.6 Neutrophils % 67.0 Lymphocytes % 20.9 Monocytes % 8.1 Eosinophils % 2.7 Basophils % 0.8 Nucleated Red Blood Cells % 0.0 Neutrophils # 4.9 Lymphocytes # 1.5 Monocytes # 0.6 Eosinophils # 0.2 Basophils # 0.1 Nucleated Red Blood Cells # 0.0 Sodium Level 140 Potassium Level 4.3 Chloride Level 105 Carbon Dioxide Level 25 Anion Gap 14 Blood Urea Nitrogen 8 Creatinine 0.62 Glucose Level 126 Calcium Level 8.4 CA 125 Antigen 389.0 H Test 02/11/17 08:14 02/11/17 12:05 Bedside Glucose 116 113 Medications Medications Current Medications Nitroglycerin (Nitroglycerin (Sl Tab) 0.4 Mg) 1 tab Q5M PRN SL ANGINA; Start 02/04/17 at 03:30 Metoprolol Tartrate (Lopressor) 25 mg BID PO Last administered on 02/11/17 08: 49; Admin Dose 25 MG; Start 02/04/17 at 09:00 Enoxaparin Sodium (Lovenox) 40 mg DAILY SC Last administered on 02/11/17 08:52 ; Admin Dose 40 MG; Start 02/04/17 at 09:00 Acetaminophen (Tylenol Tab) 650 mg Q4H PRN PO PAIN AND OR ELEVATED TEMP Last administered on 02/10/17 08:40; Admin Dose 650 MG; Start 02/04/17 at 03:30 Hydromorphone HCl (Dilaudid) 1 mg Q3H PRN IV PAIN LEVEL 8-10 Last administered on 02/11/17 01:16; Admin Dose 1 MG; Start 02/04/17 at 03:30 Ondansetron HCl (Zofran Inj) 4 mg Q4H PRN IV NAUSEA AND/OR VOMITING Last administered on 02/11/17 01:16; Admin Dose 4 MG; Start 02/04/17 at 03:30 Pantoprazole (Protonix Tab) 40 mg DAILY@06 PO Last administered on 02/11/17 05 :59; Admin Dose 40 MG; Start 02/04/17 at 06:00 Aspirin (Aspirin) 325 mg DAILY PO Last administered on 02/11/17 08:49; Admin Dose 325 MG; Start 02/04/17 at 09:00 Atorvastatin Calcium (Lipitor) 20 mg QHS PO Last administered on 02/10/17 21: 09; Admin Dose 20 MG; Start 02/05/17 at 21:00 Docusate Sodium (Colace) 100 mg BID PO Last administered on 02/11/17 08:48; Admin Dose 100 MG; Start 02/05/17 at 00:00 Lisinopril (Zestril) 5 mg DAILY PO Last administered on 02/11/17 08:49; Admin Dose 5 MG; Start 02/05/17 at 09:00 Diagnostic Test (Pha) (Accu-Chek) 1 ea 02 XX Last administered on 02/06/17 02 :28; Admin Dose 1 EA; Start 02/06/17 at 02:00 Miscellaneous Information 1 ea NOTE XX ; Start 02/05/17 at 18:30 Glucose (Glutose) 15 gm Q15M PRN PO DECREASED GLUCOSE; Start 02/05/17 at 18:30 Glucose (Glutose) 22.5 gm Q15M PRN PO DECREASED GLUCOSE; Start 02/05/17 at 18: 30 Dextrose (D50w Syringe) 25 ml Q15M PRN IV DECREASED GLUCOSE; Start 02/05/17 at 18:30 Dextrose (D50w Syringe) 50 ml Q15M PRN IV DECREASED GLUCOSE; Start 02/05/17 at 18:30 Glucagon (Glucagen) 1 mg Q15M PRN IM DECREASED GLUCOSE; Start 02/05/17 at 18: 30 Glucose 15 gm 15 gm Q15M PRN BUCCAL DECREASED GLUCOSE; Start 02/05/17 at 18:30 Potassium Chloride/Sodium Chloride (NS-KCl 20 Meq) 1,000 ml @ 60 mls/hr [id number] IV Last administered on 02/11/17 03:20; Admin Dose 60 MLS/HR; Start 02/07/17 at 16:00 Meclizine HCl 25 mg 25 mg Q6H PRN PO dizziness Last administered on 02/08/17 12:46; Admin Dose 25 MG; Start 02/07/17 at 11:30 Meropenem/Sodium Chloride 50 ml @ 100 mls/hr Q8 IVPB Last administered on 02/11 05:59; Admin Dose 100 MLS/HR; Start 02/10/17 at 10:00 Vancomycin HCl/ Dextrose/Water (Vancocin/D5W) 150 ml @ 75 mls/hr Q12H IVPB Last administered on 02/11/17t 12:02; Admin Dose 75 MLS/HR; Start 02/10/17 at 23 :00 Miscellaneous Information (*Rx Drug Level Order Reminder*) 1 ONCE ONCE XX ; Start 02/11/17 at 22:00; Stop 02/11/17 at 22:01 YFN BRIAN Feb 11, 2017 12:34
--- NOTE | 2017-02-11 14:23 | CONS ---
Date/Time of Note Date/Time of Note DATE: 02/11/17 TIME: 14:21 Assessment/Plan Assessment/Plan Chief Complaint/Hosp Course IMp: 1.Chest pain-negatve trop x 3/NL EF by echo this admit/Lexiscan with no ischemia NL EF 2.HTN 3.UTI 4.abnl ecg 5. fevers 6.DM 7.Ovarian ca 8. Dylslipidemia Recc: -tele -serial ecg's -continue BB -contineu asa -continue statin -Continue abx's and f/u cx data -pnding initiation of CTX agents held due to ongoing UTI Problems: Consultation Date/Type/Reason Admit Date/Time Feb 04, 2017 at 00:40 Initial Consult Date 02/09/17 Type of Consultation: cardiology Reason for Consultation chest pain Referring Provider: COBY KRAMER MD Exam/Review of Systems Vital Signs Vitals Vital Signs Date Time Temp Pulse Resp B/P Pulse Ox O2 Delivery O2 Flow Rate FiO2 02/11/17 12:08 63 02/11/17 12:01 98.4 21 98/75 92 Intake and Output 02/10/17 02/10/17 02/11/17 15:00 23:00 07:00 Intake Total 1050 ml 1280 ml 700 ml Balance 1050 ml 1280 ml 700 ml Exam Review of Systems: CONSTITUTIONAL: No fevers, chills. PULMONARY: No sob CARDIOVASCULAR: No chest pain/palpitations GASTROINTESTINAL: No nausea/vomiting. GENITOURINARY: No hematuria/dysuria. MUSCULOSKELETAL: No myagias/arthalgias. PSYCHIATRIC: The patient denies depression. NEUROLOGIC: No weakness Constitutional: alert Psych: no complaints Head: normocephalic ENMT: mucosa pink and moist Neck: jvd (9 cm water), supple Respiratory: diminished breath sounds (at bases/B) Cardiovascular: regular rate and rhythm Gastrointestinal: non-tender, soft Musculoskeletal: muscle tone (normal) Extremities: edema (none) Neurological: other (No focal deficits) Results Result Diagram: 02/11/1728 02/11/1728 Results 24 hrs Laboratory Tests Test 02/10/17 14:31 02/10/17 17:15 02/10/17 21:11 02/11/17 06:28 Bedside Glucose 154 116 127 White Blood Count 7.3 Red Blood Count 3.34 L Hemoglobin 9.4 L Hematocrit 28.2 L Mean Corpuscular Volume 84.4 Mean Corpuscular Hemoglobin 28.1 L Mean Corpuscular Hemoglobin Concent 33.3 Red Cell Distribution Width 13.9 Platelet Count 373 # Mean Platelet Volume 9.6 Neutrophils % 67.0 Lymphocytes % 20.9 Monocytes % 8.1 Eosinophils % 2.7 Basophils % 0.8 Nucleated Red Blood Cells % 0.0 Neutrophils # 4.9 Lymphocytes # 1.5 Monocytes # 0.6 Eosinophils # 0.2 Basophils # 0.1 Nucleated Red Blood Cells # 0.0 Sodium Level 140 Potassium Level 4.3 Chloride Level 105 Carbon Dioxide Level 25 Anion Gap 14 Blood Urea Nitrogen 8 Creatinine 0.62 Glucose Level 126 Calcium Level 8.4 CA 125 Antigen 389.0 H Test 02/11/17 08:14 02/11/17 12:05 Bedside Glucose 116 113 Medications Medications Current Medications Nitroglycerin (Nitroglycerin (Sl Tab) 0.4 Mg) 1 tab Q5M PRN SL ANGINA; Start 02/04/17 at 03:30 Metoprolol Tartrate (Lopressor) 25 mg BID PO Last administered on 02/11/17 08: 49; Admin Dose 25 MG; Start 02/04/17 at 09:00 Enoxaparin Sodium (Lovenox) 40 mg DAILY SC Last administered on 02/11/17 08:52 ; Admin Dose 40 MG; Start 02/04/17 at 09:00 Acetaminophen (Tylenol Tab) 650 mg Q4H PRN PO PAIN AND OR ELEVATED TEMP Last administered on 02/10/17 08:40; Admin Dose 650 MG; Start 02/04/17 at 03:30 Hydromorphone HCl (Dilaudid) 1 mg Q3H PRN IV PAIN LEVEL 8-10 Last administered on 02/11/17 01:16; Admin Dose 1 MG; Start 02/04/17 at 03:30 Ondansetron HCl (Zofran Inj) 4 mg Q4H PRN IV NAUSEA AND/OR VOMITING Last administered on 02/11/17 01:16; Admin Dose 4 MG; Start 02/04/17 at 03:30 Pantoprazole (Protonix Tab) 40 mg DAILY@06 PO Last administered on 02/11/17 05 :59; Admin Dose 40 MG; Start 02/04/17 at 06:00 Aspirin (Aspirin) 325 mg DAILY PO Last administered on 02/11/17 08:49; Admin Dose 325 MG; Start 02/04/17 at 09:00 Atorvastatin Calcium (Lipitor) 20 mg QHS PO Last administered on 02/10/17 21: 09; Admin Dose 20 MG; Start 02/05/17 at 21:00 Docusate Sodium (Colace) 100 mg BID PO Last administered on 02/11/17 08:48; Admin Dose 100 MG; Start 02/05/17 at 00:00 Lisinopril (Zestril) 5 mg DAILY PO Last administered on 02/11/17 08:49; Admin Dose 5 MG; Start 02/05/17 at 09:00 Diagnostic Test (Pha) (Accu-Chek) 1 ea 02 XX Last administered on 02/06/17 02 :28; Admin Dose 1 EA; Start 02/06/17 at 02:00 Miscellaneous Information 1 ea NOTE XX ; Start 02/05/17 at 18:30 Glucose (Glutose) 15 gm Q15M PRN PO DECREASED GLUCOSE; Start 02/05/17 at 18:30 Glucose (Glutose) 22.5 gm Q15M PRN PO DECREASED GLUCOSE; Start 02/05/17 at 18: 30 Dextrose (D50w Syringe) 25 ml Q15M PRN IV DECREASED GLUCOSE; Start 02/05/17 at 18:30 Dextrose (D50w Syringe) 50 ml Q15M PRN IV DECREASED GLUCOSE; Start 02/05/17 at 18:30 Glucagon (Glucagen) 1 mg Q15M PRN IM DECREASED GLUCOSE; Start 02/05/17 at 18: 30 Glucose 15 gm 15 gm Q15M PRN BUCCAL DECREASED GLUCOSE; Start 02/05/17 at 18:30 Potassium Chloride/Sodium Chloride (NS-KCl 20 Meq) 1,000 ml @ 60 mls/hr [id number] IV Last administered on 02/11/17 03:20; Admin Dose 60 MLS/HR; Start 02/07/17 at 16:00 Meclizine HCl 25 mg 25 mg Q6H PRN PO dizziness Last administered on 02/08/17 12:46; Admin Dose 25 MG; Start 02/07/17 at 11:30 Meropenem/Sodium Chloride 50 ml @ 100 mls/hr Q8 IVPB Last administered on 02/11 14:19; Admin Dose 100 MLS/HR; Start 02/10/17 at 10:00 Vancomycin HCl/ Dextrose/Water (Vancocin/D5W) 150 ml @ 75 mls/hr Q12H IVPB Last administered on 02/11/17 12:02; Admin Dose 75 MLS/HR; Start 02/10/17 at 23 :00 Miscellaneous Information (*Rx Drug Level Order Reminder*) 1 ONCE ONCE XX ; Start 02/11/17 at 22:00; Stop 02/11/17 at 22:01 CHRIS FINK Feb 11, 2017 14:23
--- NOTE | 2017-02-11 14:30 | PN ---
Date/Time of Note Date/Time of Note DATE: 02/11/17 TIME: 14:26 Assessment/Plan VTE Prophylaxis VTE Prophylaxis Intervention: LMWH Lines/Catheters [facility]ter [facility] (from [facility]): Peripheral IV Urinary Cath still in place: No Assessment/Plan Assessment/Plan Chemotherapy for ovarian cancer is delayed due to urinary tract infection. She also c/o dizziness that she says occurs after she gets analgesics or antiemetics. I encouraged her not to take meds unless really needed. I also encouraged ambulation with someone else with her to avoid falls. Will reconsider chemotherapy after the infection has cleared. Subjective 24 Hr Interval Summary Free Text/Dictation 61 yo woman s/p surgery admitted for chest pain. No HI or PE found. Chemotherapy was to begin yesterday but she has a UTI that has just started on treatment. Exam/Review of Systems Vital Signs Vitals Vital Signs Date Time Temp Pulse Resp B/P Pulse Ox O2 Delivery O2 Flow Rate FiO2 02/11/17 12:08 63 02/11/17 12:01 98.4 21 98/75 92 Intake and Output 02/10/17 02/10/17 02/11/17 15:00 23:00 07:00 Intake Total 1050 ml 1280 ml 700 ml Balance 1050 ml 1280 ml 700 ml Exam Constitutional: alert, oriented Head: normocephalic Eyes: nl conjunctiva, other (mild pallor) Neck: supple Respiratory: clear to auscultation Gastrointestinal: soft Lymph: nl lymph nodes Results Result Diagram: 02/11/17 0628 02/11/17 0628 Results 24 hrs Laboratory Tests Test 02/10/17 14:31 02/10/17 17:15 02/10/17 21:11 02/11/17 06:28 Bedside Glucose 154 116 127 White Blood Count 7.3 Red Blood Count 3.34 L Hemoglobin 9.4 L Hematocrit 28.2 L Mean Corpuscular Volume 84.4 Mean Corpuscular Hemoglobin 28.1 L Mean Corpuscular Hemoglobin Concent 33.3 Red Cell Distribution Width 13.9 Platelet Count 373 # Mean Platelet Volume 9.6 Neutrophils % 67.0 Lymphocytes % 20.9 Monocytes % 8.1 Eosinophils % 2.7 Basophils % 0.8 Nucleated Red Blood Cells % 0.0 Neutrophils # 4.9 Lymphocytes # 1.5 Monocytes # 0.6 Eosinophils # 0.2 Basophils # 0.1 Nucleated Red Blood Cells # 0.0 Sodium Level 140 Potassium Level 4.3 Chloride Level 105 Carbon Dioxide Level 25 Anion Gap 14 Blood Urea Nitrogen 8 Creatinine 0.62 Glucose Level 126 Calcium Level 8.4 CA 125 Antigen 389.0 H Test 02/11/17 08:14 02/11/17 12:05 Bedside Glucose 116 113 Medications Medications Current Medications Nitroglycerin (Nitroglycerin (Sl Tab) 0.4 Mg) 1 tab Q5M PRN SL ANGINA; Start 02/04/17 at 03:30 Metoprolol Tartrate (Lopressor) 25 mg BID PO Last administered on 02/11/17 08: 49; Admin Dose 25 MG; Start 02/04/17 at 09:00 Enoxaparin Sodium (Lovenox) 40 mg DAILY SC Last administered on 02/11/17 08:52 ; Admin Dose 40 MG; Start 02/04/17 at 09:00 Acetaminophen (Tylenol Tab) 650 mg Q4H PRN PO PAIN AND OR ELEVATED TEMP Last administered on 02/10/17 08:40; Admin Dose 650 MG; Start 02/04/17 at 03:30 Hydromorphone HCl (Dilaudid) 1 mg Q3H PRN IV PAIN LEVEL 8-10 Last administered on 02/11/17 01:16; Admin Dose 1 MG; Start 02/04/17 at 03:30 Ondansetron HCl (Zofran Inj) 4 mg Q4H PRN IV NAUSEA AND/OR VOMITING Last administered on 02/11/17 01:16; Admin Dose 4 MG; Start 02/04/17 at 03:30 Pantoprazole (Protonix Tab) 40 mg DAILY@06 PO Last administered on 02/11/17 05 :59; Admin Dose 40 MG; Start 02/04/17 at 06:00 Aspirin (Aspirin) 325 mg DAILY PO Last administered on 02/11/17 08:49; Admin Dose 325 MG; Start 02/04/17 at 09:00 Atorvastatin Calcium (Lipitor) 20 mg QHS PO Last administered on 02/10/17 21: 09; Admin Dose 20 MG; Start 02/05/17 at 21:00 Docusate Sodium (Colace) 100 mg BID PO Last administered on 02/11/17 08:48; Admin Dose 100 MG; Start 02/05/17 at 00:00 Lisinopril (Zestril) 5 mg DAILY PO Last administered on 02/11/17 08:49; Admin Dose 5 MG; Start 02/05/17 at 09:00 Diagnostic Test (Pha) (Accu-Chek) 1 ea 02 XX Last administered on 02/06/17 02 :28; Admin Dose 1 EA; Start 02/06/17 at 02:00 Miscellaneous Information 1 ea NOTE XX ; Start 02/05/17 at 18:30 Glucose (Glutose) 15 gm Q15M PRN PO DECREASED GLUCOSE; Start 02/05/17 at 18:30 Glucose (Glutose) 22.5 gm Q15M PRN PO DECREASED GLUCOSE; Start 02/05/17 at 18: 30 Dextrose (D50w Syringe) 25 ml Q15M PRN IV DECREASED GLUCOSE; Start 02/05/17 at 18:30 Dextrose (D50w Syringe) 50 ml Q15M PRN IV DECREASED GLUCOSE; Start 02/05/17 at 18:30 Glucagon (Glucagen) 1 mg Q15M PRN IM DECREASED GLUCOSE; Start 02/05/17 at 18: 30 Glucose 15 gm 15 gm Q15M PRN BUCCAL DECREASED GLUCOSE; Start 02/05/17 at 18:30 Potassium Chloride/Sodium Chloride (NS-KCl 20 Meq) 1,000 ml @ 60 mls/hr [id number] IV Last administered on 02/11/17 03:20; Admin Dose 60 MLS/HR; Start 02/07/17 at 16:00 Meclizine HCl 25 mg 25 mg Q6H PRN PO dizziness Last administered on 02/08/17 12:46; Admin Dose 25 MG; Start 02/07/17 at 11:30 Meropenem/Sodium Chloride 50 ml @ 100 mls/hr Q8 IVPB Last administered on 02/11 14:19; Admin Dose 100 MLS/HR; Start 02/10/17 at 10:00 Vancomycin HCl/ Dextrose/Water (Vancocin/D5W) 150 ml @ 75 mls/hr Q12H IVPB Last administered on 02/11/17 12:02; Admin Dose 75 MLS/HR; Start 02/10/17 at 23 :00 Miscellaneous Information (*Rx Drug Level Order Reminder*) 1 ONCE ONCE XX ; Start 02/11/17 at 22:00; Stop 02/11/17 at 22:01 JANUARY SHARMA MD Feb 11, 2017 14:30
[2017-02-11] MEDS: LEVOFLOXACIN 500MG/D5W (PMX) 100 ML IVPB SCH (15:08)
[2017-02-11] MEDS ORDERED: PREGABALIN 75 MG CAP NGT SCH (21:00)
[2017-02-11] MEDS: PREGABALIN 25 MG CAP NGT SCH (21:55)
[2017-02-11] MEDS: ATORVASTATIN 20 MG TAB PO SCH (21:55)
[2017-02-12 01:17] VITALS: BP 129/58; RESP 20
[2017-02-12] MEDS: ACCU-CHEK XX SCH (02:00)
[2017-02-12] MEDS: PANTOPRAZOLE (EC) 40 MG TAB PO SCH (05:11)
[2017-02-12 06:04] LABS: BASOPHIL # 0.1 10^3/ul (0.0-0.1); BASOPHILS % 0.7 % (0.0-2.0); EOSINOPHILS # 0.2 10^3/ul (0.0-0.5); EOSINOPHILS % 3.2 % (0.0-7.0); HEMATOCRIT 29.5 % (37.0-47.0); HEMOGLOBIN 9.9 g/dl (12.0-16.0); LYMPHOCYTES # 1.5 10^3/ul (0.8-2.9); LYMPHOCYTES % 21.6 % (15.0-51.0); MEAN CORPUSCULAR HEMOGLOBIN 27.8 pg (29.0-33.0); MEAN CORPUSCULAR HGB CONC 33.6 g/dl (32.0-37.0); MEAN CORPUSCULAR VOLUME 82.9 fl (82.0-101.0); MEAN PLATELET VOLUME 9.4 fl (7.4-10.4); MONOCYTE # 0.6 10^3/ul (0.3-0.9); MONOCYTES % 8.2 % (0.0-11.0); NEUTROPHIL # 4.6 10^3/ul (1.6-7.5); NEUTROPHILS % 65.6 % (39.0-77.0); PLATELET COUNT 446 10^3/UL (140-415); RED BLOOD COUNT 3.56 10^6/ul (4.20-5.40); RED CELL DISTRIBUTION WIDTH 13.5 % (11.5-14.5); WHITE BLOOD COUNT 7.1 10^3/ul (4.8-10.8)
[2017-02-12 07:07] LABS: CALCIUM 9.3 mg/dl (8.4-10.2); CREATININE 0.64 mg/dl (0.44-1.00); POTASSIUM 4.1 mmol/L (3.5-5.1)
[2017-02-12 07:35] VITALS: BP 118/59; RESP 18
[2017-02-12] MEDS: INSULIN ASPART [NOVOLOG] 3 ML PEN SC SCH ×4 (08:15→21:00)
[2017-02-12] MEDS: METOPROLOL 25 MG TAB PO SCH ×2 (08:30→21:04)
[2017-02-12] MEDS: ASPIRIN 325 MG TAB PO SCH (08:30)
[2017-02-12] MEDS: DOCUSATE SODIUM 100 MG CAP PO SCH ×2 (08:31→21:04)
[2017-02-12] MEDS: LISINOPRIL 5 MG TAB PO SCH (08:31)
[2017-02-12] MEDS: PREGABALIN 25 MG CAP NGT SCH ×2 (08:31→21:03)
[2017-02-12] MEDS: ENOXAPARIN 40 MG/0.4 ML SYG SC SCH (08:41)
[2017-02-12] MEDS: NS + KCL 20 MEQ 1,000 ML IV SCH ×2 (12:40→14:19)
--- NOTE | 2017-02-12 13:21 | CONS ---
Date/Time of Note Date/Time of Note DATE: 02/12/17 TIME: 13:19 Assessment/Plan Assessment/Plan Chief Complaint/Hosp Course IMp: 1.Chest pain-negatve trop x 3/NL EF by echo this admit/Lexiscan with no ischemia NL EF 2.HTN 3.UTI 4.abnl ecg 5. fevers 6.DM 7.Ovarian ca 8. Dylslipidemia Recc: -Now on med/surg -serial ecg's -continue BB -contineu asa -continue statin -Continue abx's and f/u cx data -pnding initiation of CTX agents held due to ongoing UTI Problems: Consultation Date/Type/Reason Admit Date/Time Feb 04, 2017 at 00:40 Initial Consult Date 02/09/17 Type of Consultation: cardiology Reason for Consultation chest pain Referring Provider: COBY KRAMER MD Exam/Review of Systems Vital Signs Vitals Vital Signs Date Time Temp Pulse Resp B/P Pulse Ox O2 Delivery O2 Flow Rate FiO2 02/12/17 07:35 98.3 70 18 118/59 95 02/11/17 20:26 Room Air Intake and Output 02/11/17 02/11/17 02/12/17 15:00 23:00 07:00 Intake Total 150 ml 1850 ml 480 ml Balance 150 ml 1850 ml 480 ml Exam Review of Systems: CONSTITUTIONAL: No fevers, chills. PULMONARY: No sob CARDIOVASCULAR: No chest pain/palpitations GASTROINTESTINAL: No nausea/vomiting. GENITOURINARY: No hematuria/dysuria. MUSCULOSKELETAL: No myagias/arthalgias. PSYCHIATRIC: The patient denies depression. NEUROLOGIC: No weakness Constitutional: alert, oriented Psych: no complaints Head: normocephalic ENMT: mucosa pink and moist Neck: jvd (9 cm water), supple Respiratory: diminished breath sounds (at bases/B) Cardiovascular: regular rate and rhythm Gastrointestinal: non-tender, soft Musculoskeletal: muscle tone (normal) Extremities: edema (none) Neurological: other (No focal deficits) Results Result Diagram: 02/12/17 0511 02/12/17 0511 Results 24 hrs Laboratory Tests Test 02/11/17 17:23 02/11/17 22:00 02/12/17 05:11 02/12/17 07:53 Bedside Glucose 134 116 124 White Blood Count 7.1 Red Blood Count 3.56 L Hemoglobin 9.9 L Hematocrit 29.5 L Mean Corpuscular Volume 82.9 Mean Corpuscular Hemoglobin 27.8 L Mean Corpuscular Hemoglobin Concent 33.6 Red Cell Distribution Width 13.5 Platelet Count 446 H Mean Platelet Volume 9.4 Neutrophils % 65.6 Lymphocytes % 21.6 Monocytes % 8.2 Eosinophils % 3.2 Basophils % 0.7 Nucleated Red Blood Cells % 0.0 Neutrophils # 4.6 Lymphocytes # 1.5 Monocytes # 0.6 Eosinophils # 0.2 Basophils # 0.1 Nucleated Red Blood Cells # 0.0 Sodium Level 142 Potassium Level 4.1 Chloride Level 106 Carbon Dioxide Level 27 Anion Gap 13 Blood Urea Nitrogen 7 Creatinine 0.64 Glucose Level 124 Calcium Level 9.3 Test 02/12/17 12:14 Bedside Glucose 142 Medications Medications Current Medications Nitroglycerin (Nitroglycerin (Sl Tab) 0.4 Mg) 1 tab Q5M PRN SL ANGINA; Start 02/04/17 at 03:30 Metoprolol Tartrate (Lopressor) 25 mg BID PO Last administered on 02/12/17 08: 30; Admin Dose 25 MG; Start 02/04/17 at 09:00 Enoxaparin Sodium (Lovenox) 40 mg DAILY SC Last administered on 02/12/17 08:41 ; Admin Dose 40 MG; Start 02/04/17 at 09:00 Acetaminophen (Tylenol Tab) 650 mg Q4H PRN PO PAIN AND OR ELEVATED TEMP Last administered on 02/10/17 08:40; Admin Dose 650 MG; Start 02/04/17 at 03:30 Hydromorphone HCl (Dilaudid) 1 mg Q3H PRN IV PAIN LEVEL 8-10 Last administered on 02/11/17 01:16; Admin Dose 1 MG; Start 02/04/17 at 03:30 Ondansetron HCl (Zofran Inj) 4 mg Q4H PRN IV NAUSEA AND/OR VOMITING Last administered on 02/11/17 01:16; Admin Dose 4 MG; Start 02/04/17 at 03:30 Pantoprazole (Protonix Tab) 40 mg DAILY@06 PO Last administered on 02/12/17 05 :11; Admin Dose 40 MG; Start 02/04/17 at 06:00 Aspirin (Aspirin) 325 mg DAILY PO Last administered on 02/12/17 08:30; Admin Dose 325 MG; Start 02/04/17 at 09:00 Atorvastatin Calcium (Lipitor) 20 mg QHS PO Last administered on 02/11/17 21: 55; Admin Dose 20 MG; Start 02/05/17 at 21:00 Docusate Sodium (Colace) 100 mg BID PO Last administered on 02/12/17 08:31; Admin Dose 100 MG; Start 02/05/17 at 00:00 Lisinopril (Zestril) 5 mg DAILY PO Last administered on 02/12/17 08:31; Admin Dose 5 MG; Start 02/05/17 at 09:00 Diagnostic Test (Pha) (Accu-Chek) 1 ea 02 XX Last administered on 02/06/17 02 :28; Admin Dose 1 EA; Start 02/06/17 at 02:00 Miscellaneous Information 1 ea NOTE XX ; Start 02/05/17 at 18:30 Glucose (Glutose) 15 gm Q15M PRN PO DECREASED GLUCOSE; Start 02/05/17 at 18:30 Glucose (Glutose) 22.5 gm Q15M PRN PO DECREASED GLUCOSE; Start 02/05/17 at 18: 30 Dextrose (D50w Syringe) 25 ml Q15M PRN IV DECREASED GLUCOSE; Start 02/05/17 at 18:30 Dextrose (D50w Syringe) 50 ml Q15M PRN IV DECREASED GLUCOSE; Start 02/05/17 at 18:30 Glucagon (Glucagen) 1 mg Q15M PRN IM DECREASED GLUCOSE; Start 02/05/17 at 18: 30 Glucose 15 gm 15 gm Q15M PRN BUCCAL DECREASED GLUCOSE; Start 02/05/17 at 18:30 Potassium Chloride/Sodium Chloride (NS-KCl 20 Meq) 1,000 ml @ 60 mls/hr [id number] IV Last administered on 02/11/17 21:59; Admin Dose 60 MLS/HR; Start 02/07/17 at 16:00 Meclizine HCl 25 mg 25 mg Q6H PRN PO dizziness Last administered on 02/08/17 12:46; Admin Dose 25 MG; Start 02/07/17 at 11:30 Levofloxacin/ Dextrose (Levaquin 500mg/ D5W 100 ml (Pmx)) 100 ml @ 100 mls/hr Q24H IVPB Last administered on 02/11/17 15:08; Admin Dose 100 MLS/HR; Start 02/11/17 at 15:00 Pregabalin (Lyrica) 150 mg BID NGT Last administered on 02/12/17 08:31; Admin Dose 150 MG; Start 02/11/17 at 21:00 CHRIS FINK Feb 12, 2017 13:21
[2017-02-12] MEDS: LEVOFLOXACIN 500MG/D5W (PMX) 100 ML IVPB SCH (14:19)
[2017-02-12 14:25] VITALS: BP 116/54; RESP 18
--- NOTE | 2017-02-12 15:30 | PN ---
DATE: 02/12/2017 SUBJECTIVE: Patient states that the chest pain and other complaints that she had at the time of adm ission have resolved. She still, however, complains of dizziness and now complains of occipital hea dache. Dizziness is mostly when the patient stands or changes position. OBJECTIVE: GENERAL: The patient is a well-developed, well-nourished female in no acute distress. VITAL SIGNS: Temperature 98.4, pulse 64 per minute and regular, respirations 18, blood pressure 116 /54, pulse oximetry is 95% on room air. SKIN: No ecchymosis, no petechiae or rashes. HEENT: Normocephalic. No evidence of trauma. The pupils are equal, round, react to light and acco mmodation. There is no scleral icterus. Extraocular movements are intact. There is no nystagmus. NECK: Supple, no jugular venous distention or thyroid enlargement. No carotid bruits. CHEST: Clear to auscultation and percussion. No rhonchi, no wheezes, rales or rubs. HEART: Regular sinus rhythm, no S3, S4 or murmurs. ABDOMEN: Soft, no masses or ascites. Bowel sounds are active. EXTREMITIES: No clubbing. No edema or cyanosis. No palpable cords or Elliott's sign. NEUROLOGIC: Normal. LABORATORY DATA: Sodium 142, potassium 4.1, creatinine 0.64, BUN 7, calcium 9.3, white count 7100, hemoglobin 9.9, hematocrit 29.5 and platelet count 446,000. ASSESSMENT: 1. Recurrent ovarian carcinoma status post cytoreductive surgery. 2. Urinary tract infection. 3. Headaches and dizziness. Although the patient has no findings to suggest cerebral or cerebellar metastases, I will request an MRI of the brain with and without contrast. I have discussed further therapy with the patient and I have told her that she will receive chemothe rapy when treatment for urinary tract infection has been completed. Dictated By: DAVID MESA MD, SR/RADHA Conf#: [id number] DID#: [id number]
--- NOTE | 2017-02-12 16:20 | PN ---
Date/Time of Note Date/Time of Note DATE: 02/12/17 TIME: 16:18 Assessment/Plan VTE Prophylaxis VTE Prophylaxis Intervention: SCD's Lines/Catheters [facility] Peripheral IV Urinary Cath still in place: No Assessment/Plan Chief Complaint/Hosp Course Patient complains of dizziness, pending MRI of the brain, patient denies any fever. Assessment/Plan -UTI, continue Levaquin. - Chest pain, rule out acute coronary syndrome. CTA is negative for PE. Dr Lucero in following in cardiology consultation. - Recurrent/persistent ovarian cancer, status post secondary cytoreduction surgery by Dr Hayes. Dr. Bang is following in oncology consultation. - DM with hemoglobin A1c 6.3. Continue NovoLog per mild algorithm sliding scale. - Vertigo, continue Meclizine. Further recommendations based on clinical course. Plan of care discussed with Dr. Phelps. Problems: Exam/Review of Systems Vital Signs Vitals Vital Signs Date Time Temp Pulse Resp B/P Pulse Ox O2 Delivery O2 Flow Rate FiO2 02/12/17 14:25 98.4 64 18 116/54 95 02/11/17 20:26 Room Air Intake and Output 02/11/17 02/11/17 02/12/17 15:00 23:00 07:00 Intake Total 150 ml 1850 ml 480 ml Balance 150 ml 1850 ml 480 ml Exam Constitutional: alert, oriented Respiratory: normal air movement Cardiovascular: nl pulses Gastrointestinal: non-tender, soft Neurological: nl mental status Skin: nl turgor Results Result Diagram: 02/12/17 0511 02/12/17 0511 Results 24 hrs Laboratory Tests Test 02/11/17 17:23 02/11/17 22:00 02/12/17 05:11 02/12/17 07:53 Bedside Glucose 134 116 124 White Blood Count 7.1 Red Blood Count 3.56 L Hemoglobin 9.9 L Hematocrit 29.5 L Mean Corpuscular Volume 82.9 Mean Corpuscular Hemoglobin 27.8 L Mean Corpuscular Hemoglobin Concent 33.6 Red Cell Distribution Width 13.5 Platelet Count 446 H Mean Platelet Volume 9.4 Neutrophils % 65.6 Lymphocytes % 21.6 Monocytes % 8.2 Eosinophils % 3.2 Basophils % 0.7 Nucleated Red Blood Cells % 0.0 Neutrophils # 4.6 Lymphocytes # 1.5 Monocytes # 0.6 Eosinophils # 0.2 Basophils # 0.1 Nucleated Red Blood Cells # 0.0 Sodium Level 142 Potassium Level 4.1 Chloride Level 106 Carbon Dioxide Level 27 Anion Gap 13 Blood Urea Nitrogen 7 Creatinine 0.64 Glucose Level 124 Calcium Level 9.3 Test 02/12/17 12:14 Bedside Glucose 142 Medications Medications Current Medications Nitroglycerin (Nitroglycerin (Sl Tab) 0.4 Mg) 1 tab Q5M PRN SL ANGINA; Start 02/04/17 at 03:30 Metoprolol Tartrate (Lopressor) 25 mg BID PO Last administered on 02/12/17 08: 30; Admin Dose 25 MG; Start 02/04/17 at 09:00 Enoxaparin Sodium (Lovenox) 40 mg DAILY SC Last administered on 02/12/17 08:41 ; Admin Dose 40 MG; Start 02/04/17 at 09:00 Acetaminophen (Tylenol Tab) 650 mg Q4H PRN PO PAIN AND OR ELEVATED TEMP Last administered on 02/10/17 08:40; Admin Dose 650 MG; Start 02/04/17 at 03:30 Hydromorphone HCl (Dilaudid) 1 mg Q3H PRN IV PAIN LEVEL 8-10 Last administered on 02/11/17 01:16; Admin Dose 1 MG; Start 02/04/17 at 03:30 Ondansetron HCl (Zofran Inj) 4 mg Q4H PRN IV NAUSEA AND/OR VOMITING Last administered on 02/11/17 01:16; Admin Dose 4 MG; Start 02/04/17 at 03:30 Pantoprazole (Protonix Tab) 40 mg DAILY@06 PO Last administered on 02/12/17 05 :11; Admin Dose 40 MG; Start 02/04/17 at 06:00 Aspirin (Aspirin) 325 mg DAILY PO Last administered on 02/12/17 08:30; Admin Dose 325 MG; Start 02/04/17 at 09:00 Atorvastatin Calcium (Lipitor) 20 mg QHS PO Last administered on 02/11/17 21: 55; Admin Dose 20 MG; Start 02/05/17 at 21:00 Docusate Sodium (Colace) 100 mg BID PO Last administered on 02/12/17 08:31; Admin Dose 100 MG; Start 02/05/17 at 00:00 Lisinopril (Zestril) 5 mg DAILY PO Last administered on 02/12/17 08:31; Admin Dose 5 MG; Start 02/05/17 at 09:00 Diagnostic Test (Pha) (Accu-Chek) 1 ea 02 XX Last administered on 02/06/17 02 :28; Admin Dose 1 EA; Start 02/06/17 at 02:00 Miscellaneous Information 1 ea NOTE XX ; Start 02/05/17 at 18:30 Glucose (Glutose) 15 gm Q15M PRN PO DECREASED GLUCOSE; Start 02/05/17 at 18:30 Glucose (Glutose) 22.5 gm Q15M PRN PO DECREASED GLUCOSE; Start 02/05/17 at 18: 30 Dextrose (D50w Syringe) 25 ml Q15M PRN IV DECREASED GLUCOSE; Start 02/05/17 at 18:30 Dextrose (D50w Syringe) 50 ml Q15M PRN IV DECREASED GLUCOSE; Start 02/05/17 at 18:30 Glucagon (Glucagen) 1 mg Q15M PRN IM DECREASED GLUCOSE; Start 02/05/17 at 18: 30 Glucose 15 gm 15 gm Q15M PRN BUCCAL DECREASED GLUCOSE; Start 02/05/17 at 18:30 Potassium Chloride/Sodium Chloride (NS-KCl 20 Meq) 1,000 ml @ 60 mls/hr [id number] IV Last administered on 02/12/17 14:19; Admin Dose 60 MLS/HR; Start 02/07/17 at 16:00 Meclizine HCl 25 mg 25 mg Q6H PRN PO dizziness Last administered on 02/08/17 12:46; Admin Dose 25 MG; Start 02/07/17 at 11:30 Levofloxacin/ Dextrose (Levaquin 500mg/ D5W 100 ml (Pmx)) 100 ml @ 100 mls/hr Q24H IVPB Last administered on 02/12/17 14:19; Admin Dose 100 MLS/HR; Start 02/11/17 at 15:00 Pregabalin (Lyrica) 150 mg BID NGT Last administered on 02/12/17 08:31; Admin Dose 150 MG; Start 02/11/17 at 21:00 MATHIEU WALSH Feb 12, 2017 16:20
--- NOTE | 2017-02-12 19:15 | RADRPT ---
PROCEDURE: MRI Brain and IACs with and without contrast. CLINICAL INDICATION: Dizziness and headaches. History of ovarian cancer. TECHNIQUE: An MRI of the brain was performed on a GE short bore 1.5 romeo scanner utilizing the fo llowing sequences: Sagittal T1 weighted, axial T2 weighted, axial diffusion weighted (EPI technique [id number]), axial ADC mapping, and post contrast axial T1 weighted, and axial FLAIR. Additionally, thi n section imaging through the internal auditory canals was performed utilizing the following sequenc es: 3D volume high resolution T2 weighted axial, and post contrast axial and coronal T1 weighted im ages as well as axial 3-D FSPGR and reconstructed images. 10 cc Magnevist was given intravenously w ithout complication. COMPARISON: None FINDINGS: MRI BRAIN: No diffusion weighted abnormalities are seen to suggest the presence of acute ischemia or recent inf arct. There is no intracranial hemorrhage or midline shift. No extra-axial fluid collection is see n. The ventricles and sulci are mildly enlarged indicative of volume loss. There is prominent retro cerebellar CSF space which may represent seven cisterna magna versus arachnoid cyst. There are mild scattered foci of T2 and FLAIR hyperintensity in the periventricular, deep, and subco rtical white matter, which are nonspecific in etiology but likely reflect chronic small vessel ische chanel changes. The gradient echo images reveal no areas of susceptibility artifact to suggest blood d egradation products or abnormal calcification. There is a 1.3 cm gyral enhancement in the left parietal lobe with associated mild surrounding vaso genic edema. There are vascular enhancement in the posterior left frontal lobe and bilateral cerebellum likely re present developmental venous anomalies. No abnormal intracranial vascular flow voids are noted. The pituitary and sella reveal no abnormali ty. The suprasellar cistern is clear. The visualized paranasal sinuses are clear. The mastoid air cells are clear. MRI IACS: The internal auditory canals are bilaterally symmetric and normal in appearance. The seventh and ei ghth cranial nerve complexes appear normal with no evidence of abnormal enhancement on the postcontr ast images. No cerebellar pontine angle mass lesion is detected. The membranous portions of the in ner ear structures are bilaterally symmetric and normal in appearance. The mastoid air cells are cl ear. IMPRESSION: 1. A 1.3 cm gyral enhancement in the left parietal lobe with associated mild surrounding vasogenic edema. Given history of prior malignancy, intracranial metastasis cannot be excluded. 2. No acute intracranial infarction or hemorrhage. 3. 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 4. Mild chronic small vessel ischemic changes. 5. Mild generalized cerebral volume loss. 6. Contrast enhanced MRI of the internal auditory canals reveals no abnormal enhancement to suggest acoustic/vestibular schwannoma, neuritis or labyrinthitis. RPTAT: HH .Emy Loyd MD, Date Time Electronically viewed and signed by .Emy Loyd MD, on 02/12/2017 19:15 .N/
[2017-02-12 19:58] VITALS: BP 125/58; RESP 18
[2017-02-12] MEDS: ATORVASTATIN 20 MG TAB PO SCH (21:04)
[2017-02-12] MEDS ORDERED: MAGNESIUM HYDROXIDE 30ML CUP PO PRN (23:00)
[2017-02-13] MEDS ORDERED: MAGNESIUM CITRATE 300 ML BTL PO ONE (01:00)
[2017-02-13 01:58] VITALS: BP 113/56; RESP 18
[2017-02-13] MEDS: ACCU-CHEK XX SCH (02:00)
[2017-02-13] MEDS: DEXAMETHASONE 4 MG/ML 1 ML INJ IV SCH ×4 (05:33→23:53)
[2017-02-13] MEDS: PANTOPRAZOLE (EC) 40 MG TAB PO SCH (05:33)
[2017-02-13] MEDS: ACETAMINOPHEN 325 MG TAB PO PRN ×2 (05:38→16:47)
[2017-02-13 06:21] LABS: BASOPHIL # 0.1 10^3/ul (0.0-0.1); BASOPHILS % 0.7 % (0.0-2.0); EOSINOPHILS # 0.1 10^3/ul (0.0-0.5); EOSINOPHILS % 1.8 % (0.0-7.0); HEMATOCRIT 29.9 % (37.0-47.0); LYMPHOCYTES # 1.8 10^3/ul (0.8-2.9); LYMPHOCYTES % 26.2 % (15.0-51.0); MEAN CORPUSCULAR HEMOGLOBIN 27.7 pg (29.0-33.0); MEAN CORPUSCULAR HGB CONC 33.4 g/dl (32.0-37.0); MEAN CORPUSCULAR VOLUME 82.8 fl (82.0-101.0); MEAN PLATELET VOLUME 9.2 fl (7.4-10.4); MONOCYTE # 0.5 10^3/ul (0.3-0.9); MONOCYTES % 7.1 % (0.0-11.0); NEUTROPHIL # 4.3 10^3/ul (1.6-7.5); NEUTROPHILS % 63.6 % (39.0-77.0); PLATELET COUNT 522 10^3/UL (140-415); RED BLOOD COUNT 3.61 10^6/ul (4.20-5.40); RED CELL DISTRIBUTION WIDTH 13.6 % (11.5-14.5); WHITE BLOOD COUNT 6.8 10^3/ul (4.8-10.8)
[2017-02-13 06:53] LABS: CALCIUM 8.5 mg/dl (8.4-10.2); CREATININE 0.54 mg/dl (0.44-1.00); POTASSIUM 4.4 mmol/L (3.5-5.1)
[2017-02-13 07:43] VITALS: BP 130/61; RESP 18
[2017-02-13] MEDS: INSULIN ASPART [NOVOLOG] 3 ML PEN SC SCH ×4 (07:56→21:16)
[2017-02-13] MEDS: METOPROLOL 25 MG TAB PO SCH ×3 (09:00→21:09)
[2017-02-13] MEDS: LISINOPRIL 5 MG TAB PO SCH ×2 (09:00→12:35)
--- NOTE | 2017-02-13 09:20 | PN ---
DATE: 02/12/2017 HISTORY OF PRESENT ILLNESS: The patient is 61 years old with a past medical history of peripheral n europathy, diabetes, urinary tract infection, drowsiness. MRI of her brain showed left parietal lob e mass with vasogenic edema with suspected underlying malignancy which could be the reason for the d james spell. PHYSICAL EXAMINATION: GENERAL: Patient is alert, awake, and follows simple commands. HEART: Regular rate and rhythm. LUNGS: Equal breath sounds. ABDOMEN: Soft, nondistended, nontender. CRANIAL NERVES: Cranial nerve II: Pupils equal on both sides, reactive to light. Cranial nerves I X and : Extraocular muscles are intact without nystagmus. Cranial nerve V: Equal sensation to f guzman. Cranial nerve VII: Symmetrical face. Cranial nerve XIII: Decreased hearing bilaterally. Cr anial nerve XI: Elevates shoulder 5/5. Cranial nerve XII: Straight tongue. MOTOR: Decreased right hand sample maker 4+/5. Sensation decreased for glove and sock area for light touch and temperature. COORDINATION: Cicadn-[id number] test intact. HEART: Regular rate and rhythm. ASSESSMENT AND PLAN: 1. This patient is 61 years old with underlying intracranial malignancy. I am going to start the p atient on Decadron for the vasogenic edema to decrease the swelling. 2. Follow up the patient with neurosurgery for possible biopsy. 3. Follow up the patient with oncologist to follow if there is a primary lesion. 4. Follow up the patient with electroencephalogram for possible underlying seizure activity. I karan ht start her on Keppra 500 mg twice a day for seizure prophylaxis. Again, thank you for asking me to see the patient with you. Dictated By: OSMIN STAHL/RADHA Conf#: [id number] DID#: [id number]
[2017-02-13] MEDS: LEVETIRACETAM 500 MG TAB PO SCH ×2 (09:34→21:08)
[2017-02-13] MEDS: ASPIRIN 325 MG TAB PO SCH (09:34)
[2017-02-13] MEDS: DOCUSATE SODIUM 100 MG CAP PO SCH ×2 (09:34→21:08)
[2017-02-13] MEDS: PREGABALIN 75 MG CAP NGT SCH ×2 (09:36→21:08)
[2017-02-13] MEDS: ENOXAPARIN 40 MG/0.4 ML SYG SC SCH (10:04)
--- NOTE | 2017-02-13 10:33 | PN ---
Date/Time of Note Date/Time of Note DATE: 02/13/17 TIME: 10:28 Assessment/Plan VTE Prophylaxis VTE Prophylaxis Intervention: LMWH Lines/Catheters IV [facility] Type (from [facility]): Peripheral IV Urinary Cath still in place: No Assessment/Plan Assessment/Plan Pt is still getting antibiotic for UTI. MRI shows possible solitary mass 1.3 cm. Neurosurgical consultation has been requested but there are no focal signs, no seizures, no headache and normal mental status. It could be a solitary met but that is not clear. She may need biopsy. If no surgical biopsy is done and UTI clears, I would plan to start chemotherapy next week. Note that BRCA study from prior hospitalization is still pending. Subjective 24 Hr Interval Summary Free Text/Dictation Pt c/o constipation and has mag citrate that she has not yet taken. Exam/Review of Systems Vital Signs Vitals Vital Signs Date Time Temp Pulse Resp B/P Pulse Ox O2 Delivery O2 Flow Rate FiO2 02/13/17 07:43 98.0 69 18 130/61 94 02/11/17 20:26 Room Air Intake and Output 02/12/17 02/12/17 02/13/17 15:00 23:00 07:00 Intake Total 1020 ml 1440 ml 1080 ml Output Total 2 ml Balance 1020 ml 1438 ml 1080 ml Exam Constitutional: alert, oriented Head: normocephalic Eyes: nl conjunctiva Neck: supple Respiratory: clear to auscultation Cardiovascular: regular rate and rhythm Gastrointestinal: soft Extremities: normal pulses Neurological: other (nonfocal) Results Result Diagram: 02/13/17 0548 02/13/17 0549 Results 24 hrs Laboratory Tests Test 02/12/17 12:14 02/12/17 17:16 02/12/17 21:08 02/13/17 05:48 Bedside Glucose 142 277 H 107 White Blood Count 6.8 Red Blood Count 3.61 L Hemoglobin 10.0 L Hematocrit 29.9 L Mean Corpuscular Volume 82.8 Mean Corpuscular Hemoglobin 27.7 L Mean Corpuscular Hemoglobin Concent 33.4 Red Cell Distribution Width 13.6 Platelet Count 522 H Mean Platelet Volume 9.2 Neutrophils % 63.6 Lymphocytes % 26.2 Monocytes % 7.1 Eosinophils % 1.8 Basophils % 0.7 Nucleated Red Blood Cells % 0.0 Neutrophils # 4.3 Lymphocytes # 1.8 Monocytes # 0.5 Eosinophils # 0.1 Basophils # 0.1 Nucleated Red Blood Cells # 0.0 Test 02/13/17 05:49 02/13/17 07:49 Sodium Level 141 Potassium Level 4.4 Chloride Level 108 Carbon Dioxide Level 22 Anion Gap 15 Blood Urea Nitrogen 7 Creatinine 0.54 Glucose Level 109 Calcium Level 8.5 Bedside Glucose 139 Medications Medications Current Medications Nitroglycerin (Nitroglycerin (Sl Tab) 0.4 Mg) 1 tab Q5M PRN SL ANGINA; Start 02/04/17 at 03:30 Metoprolol Tartrate (Lopressor) 25 mg BID PO Last administered on 02/12/17 21: 04; Admin Dose 25 MG; Start 02/04/17 at 09:00 Enoxaparin Sodium (Lovenox) 40 mg DAILY SC Last administered on 02/13/17 10:04 ; Admin Dose 40 MG; Start 02/04/17 at 09:00 Acetaminophen (Tylenol Tab) 650 mg Q4H PRN PO PAIN AND OR ELEVATED TEMP Last administered on 02/13/17 05:38; Admin Dose 650 MG; Start 02/04/17 at 03:30 Hydromorphone HCl (Dilaudid) 1 mg Q3H PRN IV PAIN LEVEL 8-10 Last administered on 02/11/17 01:16; Admin Dose 1 MG; Start 02/04/17 at 03:30 Ondansetron HCl (Zofran Inj) 4 mg Q4H PRN IV NAUSEA AND/OR VOMITING Last administered on 02/11/17 01:16; Admin Dose 4 MG; Start 02/04/17 at 03:30 Pantoprazole (Protonix Tab) 40 mg DAILY@06 PO Last administered on 02/13/17 05 :33; Admin Dose 40 MG; Start 02/04/17 at 06:00 Aspirin (Aspirin) 325 mg DAILY PO Last administered on 02/13/17 09:34; Admin Dose 325 MG; Start 02/04/17 at 09:00 Atorvastatin Calcium (Lipitor) 20 mg QHS PO Last administered on 02/12/17 21: 04; Admin Dose 20 MG; Start 02/05/17 at 21:00 Docusate Sodium (Colace) 100 mg BID PO Last administered on 02/13/17 09:34; Admin Dose 100 MG; Start 02/05/17 at 00:00 Lisinopril (Zestril) 5 mg DAILY PO Last administered on 02/12/17 08:31; Admin Dose 5 MG; Start 02/05/17 at 09:00 Diagnostic Test (Pha) (Accu-Chek) 1 ea 02 XX Last administered on 02/06/17 02 :28; Admin Dose 1 EA; Start 02/06/17 at 02:00 Miscellaneous Information 1 ea NOTE XX ; Start 02/05/17 at 18:30 Glucose (Glutose) 15 gm Q15M PRN PO DECREASED GLUCOSE; Start 02/05/17 at 18:30 Glucose (Glutose) 22.5 gm Q15M PRN PO DECREASED GLUCOSE; Start 02/05/17 at 18: 30 Dextrose (D50w Syringe) 25 ml Q15M PRN IV DECREASED GLUCOSE; Start 02/05/17 at 18:30 Dextrose (D50w Syringe) 50 ml Q15M PRN IV DECREASED GLUCOSE; Start 02/05/17 at 18:30 Glucagon (Glucagen) 1 mg Q15M PRN IM DECREASED GLUCOSE; Start 02/05/17 at 18: 30 Glucose 15 gm 15 gm Q15M PRN BUCCAL DECREASED GLUCOSE; Start 02/05/17 at 18:30 Potassium Chloride/Sodium Chloride (NS-KCl 20 Meq) 1,000 ml @ 60 mls/hr [id number] IV Last administered on 02/12/17 14:19; Admin Dose 60 MLS/HR; Start 02/07/17 at 16:00 Meclizine HCl 25 mg 25 mg Q6H PRN PO dizziness Last administered on 02/08/17 12:46; Admin Dose 25 MG; Start 02/07/17 at 11:30 Levofloxacin/ Dextrose (Levaquin 500mg/ D5W 100 ml (Pmx)) 100 ml @ 100 mls/hr Q24H IVPB Last administered on 02/12/17 14:19; Admin Dose 100 MLS/HR; Start 02/11/17 at 15:00 Magnesium Hydroxide (Milk Of Mag) 30 ml Q6H PRN PO CONSTIPATION; Start at 23:00 Dexamethasone (Decadron) 4 mg Q6 IV Last administered on 02/13/17 05:33; Admin Dose 4 MG; Start 02/13/17 at 06:00 Levetiracetam (Keppra) 500 mg BID PO Last administered on 02/13/17 09:34; Admin Dose 500 MG; Start 02/13/17 at 09:00 Pregabalin (Lyrica) 150 mg BID NGT Last administered on 02/13/17 09:36; Admin Dose 150 MG; Start 02/13/17 at 09:00 JANUARY SHARMA MD Feb 13, 2017 10:33
--- NOTE | 2017-02-13 10:34 | PN ---
Date/Time of Note Date/Time of Note DATE: 02/13/17 TIME: 10:23 Assessment/Plan VTE Prophylaxis VTE Prophylaxis Intervention: other Lines/Catheters IV [facility] Type [facility]from [facility] Peripheral IV Urinary Cath still in place: No Assessment/Plan Assessment/Plan - Underlying intracranial malignancy - per neurologist - on Decadron for the vasogenic edema to decrease the swelling. - will get neurosx consult for possible biopsy. - electroencephalogram for possible underlying seizure activity- pending - Keppra 500 mg twice a day for seizure prophylaxis - seizure precautions -UTI, continue Levaquin. - Chest pain, rule out acute coronary syndrome. CTA is negative for PE. Dr Lucero in following in cardiology consultation. - Recurrent/persistent ovarian cancer, status post secondary cytoreduction surgery by Dr Hayes. Dr. Bang is following in oncology consultation. - DM with hemoglobin A1c 6.3. Continue NovoLog per mild algorithm sliding scale. - Vertigo, continue Meclizine. We will get PICC line foe IV meds. Further recommendations based on clinical course. Plan of care discussed with Dr. Phelps. Subjective 24 Hr Interval Summary Free Text/Dictation - will get neurosx consult for possible biopsy as patirnt has underlying head malignancy, electroencephalogram for possible underlying seizure activity- pending , on Keppra 500 mg twice a day for seizure prophylaxis, seizure precautions. Will get PICC line for IV meds- roxane abbott Constitutional: requiring IVF Respiratory: no complaints Cardiovascular: no complaints Musculoskeletal: no complaints Exam/Review of Systems Vital Signs Vitals Vital Signs Date Time Temp Pulse Resp B/P Pulse Ox O2 Delivery O2 Flow Rate FiO2 02/13/17 07:43 98.0 69 18 130/61 94 02/11/17 20:26 Room Air Intake and Output 02/12/17 02/12/17 02/13/17 15:00 23:00 07:00 Intake Total 1020 ml 1440 ml 1080 ml Output Total 2 ml Balance 1020 ml 1438 ml 1080 ml Exam Constitutional: alert, well developed Respiratory: clear to auscultation Cardiovascular: nl pulses, other (s1s2) Gastrointestinal: non-tender, soft Musculoskeletal: nl extremities to inspection Extremities: normal pulses Neurological: nl mental status, nl speech Results Result Diagram: 02/13/17 0548 02/13/17 0549 Results 24 hrs Laboratory Tests Test 02/12/17 12:14 02/12/17 17:16 02/12/17 21:08 02/13/17 05:48 Bedside Glucose 142 277 H 107 White Blood Count 6.8 Red Blood Count 3.61 L Hemoglobin 10.0 L Hematocrit 29.9 L Mean Corpuscular Volume 82.8 Mean Corpuscular Hemoglobin 27.7 L Mean Corpuscular Hemoglobin Concent 33.4 Red Cell Distribution Width 13.6 Platelet Count 522 H Mean Platelet Volume 9.2 Neutrophils % 63.6 Lymphocytes % 26.2 Monocytes % 7.1 Eosinophils % 1.8 Basophils % 0.7 Nucleated Red Blood Cells % 0.0 Neutrophils # 4.3 Lymphocytes # 1.8 Monocytes # 0.5 Eosinophils # 0.1 Basophils # 0.1 Nucleated Red Blood Cells # 0.0 Test 02/13/17 05:49 02/13/17 07:49 Sodium Level 141 Potassium Level 4.4 Chloride Level 108 Carbon Dioxide Level 22 Anion Gap 15 Blood Urea Nitrogen 7 Creatinine 0.54 Glucose Level 109 Calcium Level 8.5 Bedside Glucose 139 Medications Medications Current Medications Nitroglycerin (Nitroglycerin (Sl Tab) 0.4 Mg) 1 tab Q5M PRN SL ANGINA; Start 02/04/17 at 03:30 Metoprolol Tartrate (Lopressor) 25 mg BID PO Last administered on 02/12/17 21: 04; Admin Dose 25 MG; Start 02/04/17 at 09:00 Enoxaparin Sodium (Lovenox) 40 mg DAILY SC Last administered on 02/13/17 10:04 ; Admin Dose 40 MG; Start 02/04/17 at 09:00 Acetaminophen (Tylenol Tab) 650 mg Q4H PRN PO PAIN AND OR ELEVATED TEMP Last administered on 02/13/17 05:38; Admin Dose 650 MG; Start 02/04/17 at 03:30 Hydromorphone HCl (Dilaudid) 1 mg Q3H PRN IV PAIN LEVEL 8-10 Last administered on 02/11/17 01:16; Admin Dose 1 MG; Start 02/04/17 at 03:30 Ondansetron HCl (Zofran Inj) 4 mg Q4H PRN IV NAUSEA AND/OR VOMITING Last administered on 02/11/17 01:16; Admin Dose 4 MG; Start 02/04/17 at 03:30 Pantoprazole (Protonix Tab) 40 mg DAILY@06 PO Last administered on 02/13/17 05 :33; Admin Dose 40 MG; Start 02/04/17 at 06:00 Aspirin (Aspirin) 325 mg DAILY PO Last administered on 02/13/17 09:34; Admin Dose 325 MG; Start 02/04/17 at 09:00 Atorvastatin Calcium (Lipitor) 20 mg QHS PO Last administered on 02/12/17 21: 04; Admin Dose 20 MG; Start 02/05/17 at 21:00 Docusate Sodium (Colace) 100 mg BID PO Last administered on 02/13/17 09:34; Admin Dose 100 MG; Start 02/05/17 at 00:00 Lisinopril (Zestril) 5 mg DAILY PO Last administered on 02/12/17 08:31; Admin Dose 5 MG; Start 02/05/17 at 09:00 Diagnostic Test (Pha) (Accu-Chek) 1 ea 02 XX Last administered on 02/06/17 02 :28; Admin Dose 1 EA; Start 02/06/17 at 02:00 Miscellaneous Information 1 ea NOTE XX ; Start 02/05/17 at 18:30 Glucose (Glutose) 15 gm Q15M PRN PO DECREASED GLUCOSE; Start 02/05/17 at 18:30 Glucose (Glutose) 22.5 gm Q15M PRN PO DECREASED GLUCOSE; Start 02/05/17 at 18: 30 Dextrose (D50w Syringe) 25 ml Q15M PRN IV DECREASED GLUCOSE; Start 02/05/17 at 18:30 Dextrose (D50w Syringe) 50 ml Q15M PRN IV DECREASED GLUCOSE; Start 02/05/17 at 18:30 Glucagon (Glucagen) 1 mg Q15M PRN IM DECREASED GLUCOSE; Start 02/05/17 at 18: 30 Glucose 15 gm 15 gm Q15M PRN BUCCAL DECREASED GLUCOSE; Start 02/05/17 at 18:30 Potassium Chloride/Sodium Chloride (NS-KCl 20 Meq) 1,000 ml @ 60 mls/hr [id number] IV Last administered on 02/12/17 14:19; Admin Dose 60 MLS/HR; Start 02/07/17 at 16:00 Meclizine HCl 25 mg 25 mg Q6H PRN PO dizziness Last administered on 02/08/17 12:46; Admin Dose 25 MG; Start 02/07/17 at 11:30 Levofloxacin/ Dextrose (Levaquin 500mg/ D5W 100 ml (Pmx)) 100 ml @ 100 mls/hr Q24H IVPB Last administered on 02/12/17 14:19; Admin Dose 100 MLS/HR; Start 02/11/17 at 15:00 Magnesium Hydroxide (Milk Of Mag) 30 ml Q6H PRN PO CONSTIPATION; Start at 23:00 Dexamethasone (Decadron) 4 mg Q6 IV Last administered on 02/13/17 05:33; Admin Dose 4 MG; Start 02/13/17 at 06:00 Levetiracetam (Keppra) 500 mg BID PO Last administered on 02/13/17 09:34; Admin Dose 500 MG; Start 02/13/17 at 09:00 Pregabalin (Lyrica) 150 mg BID NGT Last administered on 02/13/17 09:36; Admin Dose 150 MG; Start 02/13/17 at 09:00 YFN BRIAN Feb 13, 2017 10:34
[2017-02-13 11:13] LABS: BASOPHILS % 0.4 % (0.0-2.0); HEMATOCRIT 31.2 % (37.0-47.0); HEMOGLOBIN 10.5 g/dl (12.0-16.0); LYMPHOCYTES % 12.9 % (15.0-51.0); MEAN CORPUSCULAR HEMOGLOBIN 27.6 pg (29.0-33.0); MEAN CORPUSCULAR HGB CONC 33.7 g/dl (32.0-37.0); MEAN CORPUSCULAR VOLUME 82.1 fl (82.0-101.0); MONOCYTE # 0.1 10^3/ul (0.3-0.9); MONOCYTES % 1.5 % (0.0-11.0); NEUTROPHIL # 6.4 10^3/ul (1.6-7.5); NEUTROPHILS % 84.4 % (39.0-77.0); PLATELET COUNT 551 10^3/UL (140-415); RED CELL DISTRIBUTION WIDTH 13.5 % (11.5-14.5); WHITE BLOOD COUNT 7.6 10^3/ul (4.8-10.8)
[2017-02-13] MEDS ORDERED: LIDOCAINE 1% (MPF) 5 ML VIAL SC ONE (12:00)
[2017-02-13] MEDS: NS + KCL 20 MEQ 1,000 ML IV SCH ×2 (12:27→21:17)
[2017-02-13 14:17] VITALS: BP 106/51; RESP 18
--- NOTE | 2017-02-13 15:02 | CONS ---
Date/Time of Note Date/Time of Note DATE: 02/13/17 TIME: 14:59 Assessment/Plan Assessment/Plan Additional Assessment/Plan Atypical chest pain Hypertension DM Ovarian ca Dyslipidemia UTI Hemodynamically stable Continue Lovenox Continue Metoprolol Continue Lisinopril Continue ASA Continue Lipitor Continue Insulin Continue Antibiotics Consultation Date/Type/Reason Admit Date/Time Feb 04, 2017 at 00:40 Constitutional: requiring IVF Respiratory: no complaints Cardiovascular: no complaints Gastrointestinal: no complaints Genitourinary: no complaints Musculoskeletal: no complaints Skin: no complaints Psychological: no complaints Social History Smoking Status: Never smoker Exam/Review of Systems Vital Signs Vitals Vital Signs Date Time Temp Pulse Resp B/P Pulse Ox O2 Delivery O2 Flow Rate FiO2 02/13/17 14:17 97.6 70 18 106/51 95 02/11/17 20:26 Room Air Intake and Output 02/12/17 02/12/17 02/13/17 15:00 23:00 07:00 Intake Total 1020 ml 1440 ml 1080 ml Output Total 2 ml Balance 1020 ml 1438 ml 1080 ml Exam Constitutional: alert Head: atraumatic, normocephalic Neck: non-tender, supple Respiratory: clear to auscultation Cardiovascular: regular rate and rhythm Gastrointestinal: nl liver, spleen, non-tender, soft Extremities: normal pulses Results Result Diagram: 02/13/17 1053 02/13/17 0549 Results 24 hrs Laboratory Tests Test 02/12/17 17:16 02/12/17 21:08 02/13/17 05:48 02/13/17 05:49 Bedside Glucose 277 H 107 White Blood Count 6.8 Red Blood Count 3.61 L Hemoglobin 10.0 L Hematocrit 29.9 L Mean Corpuscular Volume 82.8 Mean Corpuscular Hemoglobin 27.7 L Mean Corpuscular Hemoglobin Concent 33.4 Red Cell Distribution Width 13.6 Platelet Count 522 H Mean Platelet Volume 9.2 Neutrophils % 63.6 Lymphocytes % 26.2 Monocytes % 7.1 Eosinophils % 1.8 Basophils % 0.7 Nucleated Red Blood Cells % 0.0 Neutrophils # 4.3 Lymphocytes # 1.8 Monocytes # 0.5 Eosinophils # 0.1 Basophils # 0.1 Nucleated Red Blood Cells # 0.0 Sodium Level 141 Potassium Level 4.4 Chloride Level 108 Carbon Dioxide Level 22 Anion Gap 15 Blood Urea Nitrogen 7 Creatinine 0.54 Glucose Level 109 Calcium Level 8.5 Test 02/13/17 07:49 02/13/17 10:53 02/13/17 12:18 Bedside Glucose 139 183 White Blood Count 7.6 Red Blood Count 3.80 L Hemoglobin 10.5 L Hematocrit 31.2 L Mean Corpuscular Volume 82.1 Mean Corpuscular Hemoglobin 27.6 L Mean Corpuscular Hemoglobin Concent 33.7 Red Cell Distribution Width 13.5 Platelet Count 551 H Mean Platelet Volume 9.0 Neutrophils % 84.4 H Lymphocytes % 12.9 L Monocytes % 1.5 Eosinophils % 0.0 Basophils % 0.4 Nucleated Red Blood Cells % 0.0 Neutrophils # 6.4 Lymphocytes # 1.0 Monocytes # 0.1 L Eosinophils # 0.0 Basophils # 0.0 Nucleated Red Blood Cells # 0.0 Medications Medications Current Medications Nitroglycerin (Nitroglycerin (Sl Tab) 0.4 Mg) 1 tab Q5M PRN SL ANGINA; Start 02/04/17 at 03:30 Metoprolol Tartrate (Lopressor) 25 mg BID PO Last administered on 02/13/17 12: 35; Admin Dose 25 MG; Start 02/04/17 at 09:00 Enoxaparin Sodium (Lovenox) 40 mg DAILY SC Last administered on 02/13/17 10:04 ; Admin Dose 40 MG; Start 02/04/17 at 09:00 Acetaminophen (Tylenol Tab) 650 mg Q4H PRN PO PAIN AND OR ELEVATED TEMP Last administered on 02/13/17 05:38; Admin Dose 650 MG; Start 02/04/17 at 03:30 Hydromorphone HCl (Dilaudid) 1 mg Q3H PRN IV PAIN LEVEL 8-10 Last administered on 02/11/17 01:16; Admin Dose 1 MG; Start 02/04/17 at 03:30 Ondansetron HCl (Zofran Inj) 4 mg Q4H PRN IV NAUSEA AND/OR VOMITING Last administered on 02/11/17 01:16; Admin Dose 4 MG; Start 02/04/17 at 03:30 Pantoprazole (Protonix Tab) 40 mg DAILY@06 PO Last administered on 02/13/17 05 :33; Admin Dose 40 MG; Start 02/04/17 at 06:00 Aspirin (Aspirin) 325 mg DAILY PO Last administered on 02/13/17 09:34; Admin Dose 325 MG; Start 02/04/17 at 09:00 Atorvastatin Calcium (Lipitor) 20 mg QHS PO Last administered on 02/12/17 21: 04; Admin Dose 20 MG; Start 02/05/17 at 21:00 Docusate Sodium (Colace) 100 mg BID PO Last administered on 02/13/17 09:34; Admin Dose 100 MG; Start 02/05/17 at 00:00 Lisinopril (Zestril) 5 mg DAILY PO Last administered on 02/13/17 12:35; Admin Dose 5 MG; Start 02/05/17 at 09:00 Diagnostic Test (Pha) (Accu-Chek) 1 ea 02 XX Last administered on 02/06/17 02 :28; Admin Dose 1 EA; Start 02/06/17 at 02:00 Miscellaneous Information 1 ea NOTE XX ; Start 02/05/17 at 18:30 Glucose (Glutose) 15 gm Q15M PRN PO DECREASED GLUCOSE; Start 02/05/17 at 18:30 Glucose (Glutose) 22.5 gm Q15M PRN PO DECREASED GLUCOSE; Start 02/05/17 at 18: 30 Dextrose (D50w Syringe) 25 ml Q15M PRN IV DECREASED GLUCOSE; Start 02/05/17 at 18:30 Dextrose (D50w Syringe) 50 ml Q15M PRN IV DECREASED GLUCOSE; Start 02/05/17 at 18:30 Glucagon (Glucagen) 1 mg Q15M PRN IM DECREASED GLUCOSE; Start 02/05/17 at 18: 30 Glucose 15 gm 15 gm Q15M PRN BUCCAL DECREASED GLUCOSE; Start 02/05/17 at 18:30 Potassium Chloride/Sodium Chloride (NS-KCl 20 Meq) 1,000 ml @ 60 mls/hr [id number] IV Last administered on 02/13/17 12:27; Admin Dose 60 MLS/HR; Start 02/07/17 at 16:00 Meclizine HCl 25 mg 25 mg Q6H PRN PO dizziness Last administered on 02/08/17 12:46; Admin Dose 25 MG; Start 02/07/17 at 11:30 Levofloxacin/ Dextrose (Levaquin 500mg/ D5W 100 ml (Pmx)) 100 ml @ 100 mls/hr Q24H IVPB Last administered on 02/12/17 14:19; Admin Dose 100 MLS/HR; Start 02/11/17 at 15:00 Magnesium Hydroxide (Milk Of Mag) 30 ml Q6H PRN PO CONSTIPATION; Start at 23:00 Dexamethasone (Decadron) 4 mg Q6 IV Last administered on 02/13/17 12:27; Admin Dose 4 MG; Start 02/13/17 at 06:00 Levetiracetam (Keppra) 500 mg BID PO Last administered on 02/13/17 09:34; Admin Dose 500 MG; Start 02/13/17 at 09:00 Pregabalin (Lyrica) 150 mg BID NGT Last administered on 02/13/17 09:36; Admin Dose 150 MG; Start 02/13/17 at 09:00 YINA BENAVIDES M.D. Feb 13, 2017 15:02
--- NOTE | 2017-02-13 15:37 | PN ---
Date/Time of Note Date/Time of Note DATE: 02/13/17 TIME: 15:26 Assessment/Plan VTE Prophylaxis VTE Prophylaxis Intervention: LMWH, SCD's Lines/Catheters IV Catheter Type (from Nrsg): Peripheral IV Urinary Cath still in place: No Assessment/Plan Chief Complaint/Hosp Course Ovarian ca, DM Problems: Assessment/Plan A- new neurologic issue P- issue us whether newest factor is separate uncertain issue\medicine issue vs solitary met (that is very easily treated by left RT) noted MRI parietal lobe with associated mild surrounding vasogenic edema. Agree bx a/o neurology eval Subjective 24 Hr Interval Summary Free Text/Dictation resolution of pain and GI issues but some dizziness and left lower head pain Exam/Review of Systems Vital Signs Vitals Vital Signs Date Time Temp Pulse Resp B/P Pulse Ox O2 Delivery O2 Flow Rate FiO2 02/13/17 14:17 97.6 70 18 106/51 95 02/11/17 20:26 Room Air Intake and Output 02/12/17 02/12/17 02/13/17 15:00 23:00 07:00 Intake Total 1020 ml 1440 ml 1080 ml Output Total 2 ml Balance 1020 ml 1438 ml 1080 ml Exam Resp- clear CVS NSR Abd- Soft Ext- NT Neuro- some vertigo and left lateral pain and possible consistent with small lesion per MRI Results Result Diagram: 02/13/17 1053 02/13/17 0549 Results 24 hrs Laboratory Tests Test 02/12/17 17:16 02/12/17 21:08 02/13/17 05:48 02/13/17 05:49 Bedside Glucose 277 H 107 White Blood Count 6.8 Red Blood Count 3.61 L Hemoglobin 10.0 L Hematocrit 29.9 L Mean Corpuscular Volume 82.8 Mean Corpuscular Hemoglobin 27.7 L Mean Corpuscular Hemoglobin Concent 33.4 Red Cell Distribution Width 13.6 Platelet Count 522 H Mean Platelet Volume 9.2 Neutrophils % 63.6 Lymphocytes % 26.2 Monocytes % 7.1 Eosinophils % 1.8 Basophils % 0.7 Nucleated Red Blood Cells % 0.0 Neutrophils # 4.3 Lymphocytes # 1.8 Monocytes # 0.5 Eosinophils # 0.1 Basophils # 0.1 Nucleated Red Blood Cells # 0.0 Sodium Level 141 Potassium Level 4.4 Chloride Level 108 Carbon Dioxide Level 22 Anion Gap 15 Blood Urea Nitrogen 7 Creatinine 0.54 Glucose Level 109 Calcium Level 8.5 Test 02/13/17 07:49 02/13/17 10:53 02/13/17 12:18 Bedside Glucose 139 183 White Blood Count 7.6 Red Blood Count 3.80 L Hemoglobin 10.5 L Hematocrit 31.2 L Mean Corpuscular Volume 82.1 Mean Corpuscular Hemoglobin 27.6 L Mean Corpuscular Hemoglobin Concent 33.7 Red Cell Distribution Width 13.5 Platelet Count 551 H Mean Platelet Volume 9.0 Neutrophils % 84.4 H Lymphocytes % 12.9 L Monocytes % 1.5 Eosinophils % 0.0 Basophils % 0.4 Nucleated Red Blood Cells % 0.0 Neutrophils # 6.4 Lymphocytes # 1.0 Monocytes # 0.1 L Eosinophils # 0.0 Basophils # 0.0 Nucleated Red Blood Cells # 0.0 Medications Medications Current Medications Nitroglycerin (Nitroglycerin (Sl Tab) 0.4 Mg) 1 tab Q5M PRN SL ANGINA; Start 02/04/17 at 03:30 Metoprolol Tartrate (Lopressor) 25 mg BID PO Last administered on 02/13/17 12: 35; Admin Dose 25 MG; Start 02/04/17 at 09:00 Enoxaparin Sodium (Lovenox) 40 mg DAILY SC Last administered on 02/13/17 10:04 ; Admin Dose 40 MG; Start 02/04/17 at 09:00 Acetaminophen (Tylenol Tab) 650 mg Q4H PRN PO PAIN AND OR ELEVATED TEMP Last administered on 02/13/17 05:38; Admin Dose 650 MG; Start 02/04/17 at 03:30 Hydromorphone HCl (Dilaudid) 1 mg Q3H PRN IV PAIN LEVEL 8-10 Last administered on 02/11/17 01:16; Admin Dose 1 MG; Start 02/04/17 at 03:30 Ondansetron HCl (Zofran Inj) 4 mg Q4H PRN IV NAUSEA AND/OR VOMITING Last administered on 02/11/17 01:16; Admin Dose 4 MG; Start 02/04/17 at 03:30 Pantoprazole (Protonix Tab) 40 mg DAILY@06 PO Last administered on 02/13/17 05 :33; Admin Dose 40 MG; Start 02/04/17 at 06:00 Aspirin (Aspirin) 325 mg DAILY PO Last administered on 02/13/17 09:34; Admin Dose 325 MG; Start 02/04/17 at 09:00 Atorvastatin Calcium (Lipitor) 20 mg QHS PO Last administered on 02/12/17 21: 04; Admin Dose 20 MG; Start 02/05/17 at 21:00 Docusate Sodium (Colace) 100 mg BID PO Last administered on 02/13/17 09:34; Admin Dose 100 MG; Start 02/05/17 at 00:00 Lisinopril (Zestril) 5 mg DAILY PO Last administered on 02/13/17 12:35; Admin Dose 5 MG; Start 02/05/17 at 09:00 Diagnostic Test (Pha) (Accu-Chek) 1 ea 02 XX Last administered on 02/06/17 02 :28; Admin Dose 1 EA; Start 02/06/17 at 02:00 Miscellaneous Information 1 ea NOTE XX ; Start 02/05/17 at 18:30 Glucose (Glutose) 15 gm Q15M PRN PO DECREASED GLUCOSE; Start 02/05/17 at 18:30 Glucose (Glutose) 22.5 gm Q15M PRN PO DECREASED GLUCOSE; Start 02/05/17 at 18: 30 Dextrose (D50w Syringe) 25 ml Q15M PRN IV DECREASED GLUCOSE; Start 02/05/17 at 18:30 Dextrose (D50w Syringe) 50 ml Q15M PRN IV DECREASED GLUCOSE; Start 02/05/17 at 18:30 Glucagon (Glucagen) 1 mg Q15M PRN IM DECREASED GLUCOSE; Start 02/05/17 at 18: 30 Glucose 15 gm 15 gm Q15M PRN BUCCAL DECREASED GLUCOSE; Start 02/05/17 at 18:30 Potassium Chloride/Sodium Chloride (NS-KCl 20 Meq) 1,000 ml @ 60 mls/hr [id number] IV Last administered on 02/13/17 12:27; Admin Dose 60 MLS/HR; Start 02/07/17 at 16:00 Meclizine HCl 25 mg 25 mg Q6H PRN PO dizziness Last administered on 02/08/17 12:46; Admin Dose 25 MG; Start 02/07/17 at 11:30 Levofloxacin/ Dextrose (Levaquin 500mg/ D5W 100 ml (Pmx)) 100 ml @ 100 mls/hr Q24H IVPB Last administered on 02/12/17 14:19; Admin Dose 100 MLS/HR; Start 02/11/17 at 15:00 Magnesium Hydroxide (Milk Of Mag) 30 ml Q6H PRN PO CONSTIPATION; Start at 23:00 Dexamethasone (Decadron) 4 mg Q6 IV Last administered on 02/13/17 12:27; Admin Dose 4 MG; Start 02/13/17 at 06:00 Levetiracetam (Keppra) 500 mg BID PO Last administered on 02/13/17 09:34; Admin Dose 500 MG; Start 02/13/17 at 09:00 Pregabalin (Lyrica) 150 mg BID NGT Last administered on 02/13/17 09:36; Admin Dose 150 MG; Start 02/13/17 at 09:00 JEFF PALOMINO MD Feb 13, 2017 15:36
[2017-02-13] MEDS: LEVOFLOXACIN 500MG/D5W (PMX) 100 ML IVPB SCH (15:49)
[2017-02-13 20:00] VITALS: BP 110/52; RESP 19
[2017-02-13] MEDS: ATORVASTATIN 20 MG TAB PO SCH (21:08)
[2017-02-13] MEDS: HYDROmorphONE 0.5 MG/0.5 ML SYG IV PRN (23:53)
[2017-02-14] MEDS: ACCU-CHEK XX SCH (01:59)
[2017-02-14 02:00] VITALS: BP 117/53; RESP 19
--- NOTE | 2017-02-14 02:18 | CONS ---
DATE OF ADMISSION: 02/04/2017 DATE OF CONSULTATION: HISTORY OF PRESENT ILLNESS: The patient is 61 years old admitted to the hospital with acute onset of dizzy spell with a possibility of underlying intracranial tumor, possibly malignancy. The patient has a history of ovarian cancer status post followed by oncology followup. The patient has intracranial tumor and weakness. Started her on Decadron for vasogenic edema and Keppra for seizures, and followed up the patient's electroencephalogram and possible biopsy by neurosurgeon. PHYSICAL EXAMINATION: GENERAL: The patient is alert, awake, oriented, following simple commands. CARDIOVASCULAR: Regular rate and rhythm. LUNGS: Equal breath sounds. ABDOMEN: Soft, relaxed, nondistended. No tenderness. CRANIAL NERVES: Cranial nerve II: Pupils equal on both eyes at this time. Cranial nerves III, IV, and : Extraocular muscles intact without nystagmus. Cranial nerve V: Equal sensation to face. Cranial nerve VII: Symmetrical face. Cranial nerve VIII: Decreased hearing bilaterally. Cranial nerve IX and X: Elevates palate. Cranial nerve XI: Elevates shoulder 5/5. Cranial nerve XII: Straight tongue. 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 SENSATION: Decreased for glove and ____ area for light touch and temperature. COORDINATION: Wldybh-rb-ltpn test intact. HEART: Regular rate and rhythm. LUNGS: Equal breath sounds. ABDOMEN: Soft, relaxed, nondistended. No tenderness. ASSESSMENT AND PLAN: 1. The patient is 61 years old with underlying intracranial malignancy with vasogenic edema. Follow up the patient with Decadron for the vasogenic edema to decrease the swelling. 2. Follow up the patient with neurosurgeon for possible biopsy. 3. The patient has a history of ovarian cancer followed by oncologist. 4. Seizure precaution. Give the patient Keppra 500 mg twice a day and follow up the patient with EEG for more evaluation and treatment. Dictated By: OSMIN STAHL/RADHA Conf#: [id number] DID#: [id number] MTDD
[2017-02-14] MEDS: NS + KCL 20 MEQ 1,000 ML IV SCH ×2 (06:36→14:40)
[2017-02-14] MEDS: DEXAMETHASONE 4 MG/ML 1 ML INJ IV SCH ×3 (06:36→17:46)
[2017-02-14] MEDS: PANTOPRAZOLE (EC) 40 MG TAB PO SCH (06:36)
[2017-02-14 06:38] LABS: CALCIUM 9.2 mg/dl (8.4-10.2); CREATININE 0.49 mg/dl (0.44-1.00); POTASSIUM 4.5 mmol/L (3.5-5.1)
[2017-02-14 07:43] VITALS: BP 122/56; RESP 18
[2017-02-14] MEDS: INSULIN ASPART [NOVOLOG] 3 ML PEN SC SCH ×4 (08:15→21:01)
[2017-02-14] MEDS: DOCUSATE SODIUM 100 MG CAP PO SCH ×2 (09:00→20:45)
[2017-02-14] MEDS: ASPIRIN 325 MG TAB PO SCH (09:11)
[2017-02-14] MEDS: PREGABALIN 75 MG CAP NGT SCH ×2 (09:12→20:44)
[2017-02-14] MEDS: LISINOPRIL 5 MG TAB PO SCH (09:12)
[2017-02-14] MEDS: METOPROLOL 25 MG TAB PO SCH ×2 (09:13→20:45)
[2017-02-14] MEDS: LEVETIRACETAM 500 MG TAB PO SCH ×2 (09:13→20:45)
[2017-02-14] MEDS: ENOXAPARIN 40 MG/0.4 ML SYG SC SCH (09:36)
--- NOTE | 2017-02-14 10:35 | PN ---
Date/Time of Note Date/Time of Note DATE: 02/14/17 TIME: 10:30 Assessment/Plan VTE Prophylaxis VTE Prophylaxis Intervention: LMWH Lines/Catheters IV [facility]from [facility] Peripheral IV Urinary Cath still in place: No Assessment/Plan Assessment/Plan Pt has not yet been seen by neurosurgeon. She feels better, possibly due to steroids. There is a possible solitary brain tumor but we have no definitive diagnosis at this time. She does have known ovarian cancer and chemotherapy is planned once the intracranial abnormality is assessed and the UTI treatment is complete. RT would be reasonable if this is a solitary brain tumor or met but I would not irradiate without a diagnosis. Subjective 24 Hr Interval Summary Free Text/Dictation Pt says she feels better than last week. No headache or fever. Exam/Review of Systems Vital Signs Vitals Vital Signs Date Time Temp Pulse Resp B/P Pulse Ox O2 Delivery O2 Flow Rate FiO2 02/14/17 07:43 98.2 71 18 122/56 95 02/11/17 20:26 Room Air Intake and Output 02/13/17 02/13/17 02/14/17 15:00 23:00 07:00 Intake Total 280 ml 1700 ml 1160 ml Balance 280 ml 1700 ml 1160 ml Exam Constitutional: alert, oriented Head: normocephalic Eyes: nl conjunctiva, nl lids ENMT: nl external ears & nose Neck: supple Respiratory: clear to auscultation Cardiovascular: regular rate and rhythm Gastrointestinal: non-tender, soft Neurological: nl mental status, nl speech, nl strength Skin: nl turgor Lymph: nl lymph nodes Results Result Diagram: 02/13/17 1053 02/14/17 0557 Results 24 hrs Laboratory Tests Test 02/13/17 10:53 02/13/17 12:18 02/13/17 17:14 02/13/17 21:11 White Blood Count 7.6 Red Blood Count 3.80 L Hemoglobin 10.5 L Hematocrit 31.2 L Mean Corpuscular Volume 82.1 Mean Corpuscular Hemoglobin 27.6 L Mean Corpuscular Hemoglobin Concent 33.7 Red Cell Distribution Width 13.5 Platelet Count 551 H Mean Platelet Volume 9.0 Neutrophils % 84.4 H Lymphocytes % 12.9 L Monocytes % 1.5 Eosinophils % 0.0 Basophils % 0.4 Nucleated Red Blood Cells % 0.0 Neutrophils # 6.4 Lymphocytes # 1.0 Monocytes # 0.1 L Eosinophils # 0.0 Basophils # 0.0 Nucleated Red Blood Cells # 0.0 Bedside Glucose 183 230 H 235 H Test 02/14/17 01:59 02/14/17 05:57 02/14/17 08:33 Bedside Glucose 168 139 Sodium Level 143 Potassium Level 4.5 Chloride Level 107 Carbon Dioxide Level 27 Anion Gap 14 Blood Urea Nitrogen 10 Creatinine 0.49 Glucose Level 171 Calcium Level 9.2 Medications Medications Current Medications Nitroglycerin (Nitroglycerin (Sl Tab) 0.4 Mg) 1 tab Q5M PRN SL ANGINA; Start 02/04/17 at 03:30 Metoprolol Tartrate (Lopressor) 25 mg BID PO Last administered on 02/14/17 09: 13; Admin Dose 25 MG; Start 02/04/17 at 09:00 Enoxaparin Sodium (Lovenox) 40 mg DAILY SC Last administered on 02/14/17 09:36 ; Admin Dose 40 MG; Start 02/04/17 at 09:00 Acetaminophen (Tylenol Tab) 650 mg Q4H PRN PO PAIN AND OR ELEVATED TEMP Last administered on 02/13/17 16:47; Admin Dose 650 MG; Start 02/04/17 at 03:30 Hydromorphone HCl (Dilaudid) 1 mg Q3H PRN IV PAIN LEVEL 8-10 Last administered on 02/13/17 23:53; Admin Dose 1 MG; Start 02/04/17 at 03:30 Ondansetron HCl (Zofran Inj) 4 mg Q4H PRN IV NAUSEA AND/OR VOMITING Last administered on 02/11/17 01:16; Admin Dose 4 MG; Start 02/04/17 at 03:30 Pantoprazole (Protonix Tab) 40 mg DAILY@06 PO Last administered on 02/14/17 06 :36; Admin Dose 40 MG; Start 02/04/17 at 06:00 Aspirin (Aspirin) 325 mg DAILY PO Last administered on 02/14/17 09:11; Admin Dose 325 MG; Start 02/04/17 at 09:00 Atorvastatin Calcium (Lipitor) 20 mg QHS PO Last administered on 02/13/17 21: 08; Admin Dose 20 MG; Start 02/05/17 at 21:00 Docusate Sodium (Colace) 100 mg BID PO Last administered on 02/13/17 21:08; Admin Dose 100 MG; Start 02/05/17 at 00:00 Lisinopril (Zestril) 5 mg DAILY PO Last administered on 02/14/17 09:12; Admin Dose 5 MG; Start 02/05/17 at 09:00 Diagnostic Test (Pha) (Accu-Chek) 1 ea 02 XX Last administered on 02/14/17 01: 59; Admin Dose 1 EA; Start 02/06/17 at 02:00 Miscellaneous Information 1 ea NOTE XX ; Start 02/05/17 at 18:30 Glucose (Glutose) 15 gm Q15M PRN PO DECREASED GLUCOSE; Start 02/05/17 at 18:30 Glucose (Glutose) 22.5 gm Q15M PRN PO DECREASED GLUCOSE; Start 02/05/17 at 18: 30 Dextrose (D50w Syringe) 25 ml Q15M PRN IV DECREASED GLUCOSE; Start 02/05/17 at 18:30 Dextrose (D50w Syringe) 50 ml Q15M PRN IV DECREASED GLUCOSE; Start 02/05/17 at 18:30 Glucagon (Glucagen) 1 mg Q15M PRN IM DECREASED GLUCOSE; Start 02/05/17 at 18: 30 Glucose 15 gm 15 gm Q15M PRN BUCCAL DECREASED GLUCOSE; Start 02/05/17 at 18:30 Potassium Chloride/Sodium Chloride (NS-KCl 20 Meq) 1,000 ml @ 60 mls/hr [id number] IV Last administered on 02/14/17 06:36; Admin Dose 60 MLS/HR; Start 02/07/17 at 16:00 Meclizine HCl 25 mg 25 mg Q6H PRN PO dizziness Last administered on 02/08/17 12:46; Admin Dose 25 MG; Start 02/07/17 at 11:30 Levofloxacin/ Dextrose (Levaquin 500mg/ D5W 100 ml (Pmx)) 100 ml @ 100 mls/hr Q24H IVPB Last administered on 02/13/17 15:49; Admin Dose 100 MLS/HR; Start 02/11/17 at 15:00 Magnesium Hydroxide (Milk Of Mag) 30 ml Q6H PRN PO CONSTIPATION; Start at 23:00 Dexamethasone (Decadron) 4 mg Q6 IV Last administered on 02/14/17 06:36; Admin Dose 4 MG; Start 02/13/17 at 06:00 Levetiracetam (Keppra) 500 mg BID PO Last administered on 02/14/17 09:13; Admin Dose 500 MG; Start 02/13/17 at 09:00 Pregabalin (Lyrica) 150 mg BID NGT Last administered on 02/14/17 09:12; Admin Dose 150 MG; Start 02/13/17 at 09:00 JANUARY SHARMA MD Feb 14, 2017 10:35
--- NOTE | 2017-02-14 11:15 | CONS ---
Date/Time of Note Date/Time of Note DATE: 02/14/17 TIME: 11:04 Assessment/Plan Assessment/Plan Additional Assessment/Plan impression Ovarian CA s/p surgery/chemotherapy (2015) admitted for chest pain CTA negative for PE & Cardiac workup essentially unremarkable per chart review thoracic tenderness on palpation with possible T4-5 thoracic radic Very small gyral 1.3 cm lesion with small vasogenic edema Polish Speaking RN at bedside during entire exam and interview. Plan Agree with melva for seizure prophylaxis Will obtain MRI C/T/L spine survey r/o possible cause for thoracic radic MR Spectroscopy study Brain to be arranged CM/SW - attempted to call radiology department to confirm if study is done here, no answer. If mets confirmed by MR spectroscopy, no surgical intervention due to size. Would recommend stereotactic xrt per Rad/onc if neoplasm is confirmed. d/w Dr. Palma [phone] cell Consultation Date/Type/Reason Admit Date/Time Feb 04, 2017 at 00:40 Hx of Present Illness 61 y/o female with history of Ovarian CA s/p surgery /chemotherapy (2015). Pt presents with SOB and initial PE / Cardiac workup negative per chart review. Pt does complain of mild thoracic back pain with ? thoracic radic T4/5 level and MRI brain showed very small left parietal 1.3 cm gyral enhancement with vasogenic edema. Neurosurgery consult called for possible biopsy. pmh/psx: per hpi/chart meds: See med recon ros: per hpi/chart Constitutional: requiring IVF Respiratory: no complaints Cardiovascular: no complaints Gastrointestinal: no complaints Genitourinary: no complaints Musculoskeletal: no complaints Skin: no complaints Psychological: no complaints Social History Smoking Status: Never smoker Exam/Review of Systems Vital Signs Vitals Vital Signs Date Time Temp Pulse Resp B/P Pulse Ox O2 Delivery O2 Flow Rate FiO2 02/14/17 07:43 98.2 71 18 122/56 95 02/11/17 20:26 Room Air Intake and Output 02/13/17 02/13/17 02/14/17 14:59 22:59 06:59 Intake Total 280 ml 1700 ml 1160 ml Balance 280 ml 1700 ml 1160 ml Exam Constitutional: alert Psych: no complaints Head: normocephalic Eyes: nl conjunctiva Neurological: other (MS: AAOX3 CN: III-XII M: FC x 4 , no focal def. noted S: Thoracic 4/5 radic bilateral) Results Result Diagram: 02/13/17 1053 02/14/17 0557 Results 24 hrs Laboratory Tests Test 02/13/17 12:18 02/13/17 17:14 02/13/17 21:11 02/14/17 01:59 Bedside Glucose 183 230 H 235 H 168 Test 02/14/17 05:57 02/14/17 08:33 Sodium Level 143 Potassium Level 4.5 Chloride Level 107 Carbon Dioxide Level 27 Anion Gap 14 Blood Urea Nitrogen 10 Creatinine 0.49 Glucose Level 171 Calcium Level 9.2 Bedside Glucose 139 Medications Medications Current Medications Nitroglycerin (Nitroglycerin (Sl Tab) 0.4 Mg) 1 tab Q5M PRN SL ANGINA; Start 02/04/17 at 03:30 Metoprolol Tartrate (Lopressor) 25 mg BID PO Last administered on 02/14/17 09: 13; Admin Dose 25 MG; Start 02/04/17 at 09:00 Enoxaparin Sodium (Lovenox) 40 mg DAILY SC Last administered on 02/14/17 09:36 ; Admin Dose 40 MG; Start 02/04/17 at 09:00 Acetaminophen (Tylenol Tab) 650 mg Q4H PRN PO PAIN AND OR ELEVATED TEMP Last administered on 02/13/17 16:47; Admin Dose 650 MG; Start 02/04/17 at 03:30 Hydromorphone HCl (Dilaudid) 1 mg Q3H PRN IV PAIN LEVEL 8-10 Last administered on 02/13/17 23:53; Admin Dose 1 MG; Start 02/04/17 at 03:30 Ondansetron HCl (Zofran Inj) 4 mg Q4H PRN IV NAUSEA AND/OR VOMITING Last administered on 02/11/17 01:16; Admin Dose 4 MG; Start 02/04/17 at 03:30 Pantoprazole (Protonix Tab) 40 mg DAILY@06 PO Last administered on 02/14/17 06 :36; Admin Dose 40 MG; Start 02/04/17 at 06:00 Aspirin (Aspirin) 325 mg DAILY PO Last administered on 02/14/17 09:11; Admin Dose 325 MG; Start 02/04/17 at 09:00 Atorvastatin Calcium (Lipitor) 20 mg QHS PO Last administered on 02/13/17 21: 08; Admin Dose 20 MG; Start 02/05/17 at 21:00 Docusate Sodium (Colace) 100 mg BID PO Last administered on 02/13/17 21:08; Admin Dose 100 MG; Start 02/05/17 at 00:00 Lisinopril (Zestril) 5 mg DAILY PO Last administered on 02/14/17 09:12; Admin Dose 5 MG; Start 02/05/17 at 09:00 Diagnostic Test (Pha) (Accu-Chek) 1 ea 02 XX Last administered on 02/14/17 01: 59; Admin Dose 1 EA; Start 02/06/17 at 02:00 Miscellaneous Information 1 ea NOTE XX ; Start 02/05/17 at 18:30 Glucose (Glutose) 15 gm Q15M PRN PO DECREASED GLUCOSE; Start 02/05/17 at 18:30 Glucose (Glutose) 22.5 gm Q15M PRN PO DECREASED GLUCOSE; Start 02/05/17 at 18: 30 Dextrose (D50w Syringe) 25 ml Q15M PRN IV DECREASED GLUCOSE; Start 02/05/17 at 18:30 Dextrose (D50w Syringe) 50 ml Q15M PRN IV DECREASED GLUCOSE; Start 02/05/17 at 18:30 Glucagon (Glucagen) 1 mg Q15M PRN IM DECREASED GLUCOSE; Start 02/05/17 at 18: 30 Glucose 15 gm 15 gm Q15M PRN BUCCAL DECREASED GLUCOSE; Start 02/05/17 at 18:30 Potassium Chloride/Sodium Chloride (NS-KCl 20 Meq) 1,000 ml @ 60 mls/hr [id number] IV Last administered on 02/14/17 06:36; Admin Dose 60 MLS/HR; Start 02/07/17 at 16:00 Meclizine HCl 25 mg 25 mg Q6H PRN PO dizziness Last administered on 02/08/17 12:46; Admin Dose 25 MG; Start 02/07/17 at 11:30 Levofloxacin/ Dextrose (Levaquin 500mg/ D5W 100 ml (Pmx)) 100 ml @ 100 mls/hr Q24H IVPB Last administered on 02/13/17 15:49; Admin Dose 100 MLS/HR; Start 02/11/17 at 15:00 Magnesium Hydroxide (Milk Of Mag) 30 ml Q6H PRN PO CONSTIPATION; Start at 23:00 Dexamethasone (Decadron) 4 mg Q6 IV Last administered on 02/14/17 06:36; Admin Dose 4 MG; Start 02/13/17 at 06:00 Levetiracetam (Keppra) 500 mg BID PO Last administered on 02/14/17 09:13; Admin Dose 500 MG; Start 02/13/17 at 09:00 Pregabalin (Lyrica) 150 mg BID NGT Last administered on 02/14/17 09:12; Admin Dose 150 MG; Start 02/13/17 at 09:00 ANH LORA NP Feb 14, 2017 11:15
--- NOTE | 2017-02-14 11:25 | PN ---
Date/Time of Note Date/Time of Note DATE: 02/14/17 TIME: 11:10 Assessment/Plan VTE Prophylaxis VTE Prophylaxis Intervention: SCD's Lines/Catheters IV Catheter Type (from Nrs): Peripheral IV Urinary Cath still in place: No Assessment/Plan Assessment/Plan - Underlying intracranial malignancy - per neurologist- plan for MRI scan to determine if patient need biopsy . [facility] Neuro[facility] DANELLE. - on Decadron for the vasogenic edema to decrease the swelling. - will get neurosx consult for possible biopsy. - electroencephalogram for possible underlying seizure activity- pending - Keppra 500 mg twice a day for seizure prophylaxis - seizure precautions -UTI, continue Levaquin. - Chest pain, rule out acute coronary syndrome. CTA is negative for PE. Dr Lucero in following in cardiology consultation. - Recurrent/persistent ovarian cancer, status post secondary cytoreduction surgery by Dr Hayes. Dr. Bang is following in oncology consultation. - DM with hemoglobin A1c 6.3. Continue NovoLog per mild algorithm sliding scale. - Vertigo- improved, continue Meclizine. We will get PICC line for IV meds if [facility] is not accessible. Further recommendations based on clinical course. Plan of care discussed with Dr. Phelps. Subjective 24 Hr Interval Summary Free Text/Dictation Afebrile, c/o back pain- possible mets- neuro/neuro sx follows- [facility] neurosx DANELLE. [facility] STAFF Constitutional: requiring IVF Respiratory: no complaints Cardiovascular: no complaints Gastrointestinal: no complaints Genitourinary: no complaints Musculoskeletal: back pain Exam/Review of Systems Vital Signs Vitals Vital Signs Date Time Temp Pulse Resp B/P Pulse Ox O2 Delivery O2 Flow Rate FiO2 02/14/17 07:43 98.2 71 18 122/56 95 02/11/17 20:26 Room Air Intake and Output 02/13/17 02/13/17 02/14/17 15:00 23:00 07:00 Intake Total 280 ml 1700 ml 1160 ml Balance 280 ml 1700 ml 1160 ml Exam Constitutional: alert, oriented, well developed Psych: nl mood/affect Respiratory: clear to auscultation, diminished breath sounds Cardiovascular: nl pulses Gastrointestinal: non-tender, soft Results Result Diagram: 02/13/17 1053 02/14/17 0557 Results 24 hrs Laboratory Tests Test 02/13/17 12:18 02/13/17 17:14 02/13/17 21:11 02/14/17 01:59 Bedside Glucose 183 230 H 235 H 168 Test 02/14/17 05:57 02/14/17 08:33 Sodium Level 143 Potassium Level 4.5 Chloride Level 107 Carbon Dioxide Level 27 Anion Gap 14 Blood Urea Nitrogen 10 Creatinine 0.49 Glucose Level 171 Calcium Level 9.2 Bedside Glucose 139 Medications Medications Current Medications Nitroglycerin (Nitroglycerin (Sl Tab) 0.4 Mg) 1 tab Q5M PRN SL ANGINA; Start 02/04/17 at 03:30 Metoprolol Tartrate (Lopressor) 25 mg BID PO Last administered on 02/14/17 09: 13; Admin Dose 25 MG; Start 02/04/17 at 09:00 Enoxaparin Sodium (Lovenox) 40 mg DAILY SC Last administered on 02/14/17 09:36 ; Admin Dose 40 MG; Start 02/04/17 at 09:00 Acetaminophen (Tylenol Tab) 650 mg Q4H PRN PO PAIN AND OR ELEVATED TEMP Last administered on 02/13/17 16:47; Admin Dose 650 MG; Start 02/04/17 at 03:30 Hydromorphone HCl (Dilaudid) 1 mg Q3H PRN IV PAIN LEVEL 8-10 Last administered on 02/13/17 23:53; Admin Dose 1 MG; Start 02/04/17 at 03:30 Ondansetron HCl (Zofran Inj) 4 mg Q4H PRN IV NAUSEA AND/OR VOMITING Last administered on 02/11/17 01:16; Admin Dose 4 MG; Start 02/04/17 at 03:30 Pantoprazole (Protonix Tab) 40 mg DAILY@06 PO Last administered on 02/14/17 06 :36; Admin Dose 40 MG; Start 02/04/17 at 06:00 Aspirin (Aspirin) 325 mg DAILY PO Last administered on 02/14/17 09:11; Admin Dose 325 MG; Start 02/04/17 at 09:00 Atorvastatin Calcium (Lipitor) 20 mg QHS PO Last administered on 02/13/17 21: 08; Admin Dose 20 MG; Start 02/05/17 at 21:00 Docusate Sodium (Colace) 100 mg BID PO Last administered on 02/13/17 21:08; Admin Dose 100 MG; Start 02/05/17 at 00:00 Lisinopril (Zestril) 5 mg DAILY PO Last administered on 02/14/17 09:12; Admin Dose 5 MG; Start 02/05/17 at 09:00 Diagnostic Test (Pha) (Accu-Chek) 1 ea 02 XX Last administered on 02/14/17 01: 59; Admin Dose 1 EA; Start 02/06/17 at 02:00 Miscellaneous Information 1 ea NOTE XX ; Start 02/05/17 at 18:30 Glucose (Glutose) 15 gm Q15M PRN PO DECREASED GLUCOSE; Start 02/05/17 at 18:30 Glucose (Glutose) 22.5 gm Q15M PRN PO DECREASED GLUCOSE; Start 02/05/17 at 18: 30 Dextrose (D50w Syringe) 25 ml Q15M PRN IV DECREASED GLUCOSE; Start 02/05/17 at 18:30 Dextrose (D50w Syringe) 50 ml Q15M PRN IV DECREASED GLUCOSE; Start 02/05/17 at 18:30 Glucagon (Glucagen) 1 mg Q15M PRN IM DECREASED GLUCOSE; Start 02/05/17 at 18: 30 Glucose 15 gm 15 gm Q15M PRN BUCCAL DECREASED GLUCOSE; Start 02/05/17 at 18:30 Potassium Chloride/Sodium Chloride (NS-KCl 20 Meq) 1,000 ml @ 60 mls/hr [id number] IV Last administered on 02/14/17 06:36; Admin Dose 60 MLS/HR; Start 02/07/17 at 16:00 Meclizine HCl 25 mg 25 mg Q6H PRN PO dizziness Last administered on 02/08/17 12:46; Admin Dose 25 MG; Start 02/07/17 at 11:30 Levofloxacin/ Dextrose (Levaquin 500mg/ D5W 100 ml (Pmx)) 100 ml @ 100 mls/hr Q24H IVPB Last administered on 02/13/17 15:49; Admin Dose 100 MLS/HR; Start 02/11/17 at 15:00 Magnesium Hydroxide (Milk Of Mag) 30 ml Q6H PRN PO CONSTIPATION; Start at 23:00 Dexamethasone (Decadron) 4 mg Q6 IV Last administered on 02/14/17 06:36; Admin Dose 4 MG; Start 02/13/17 at 06:00 Levetiracetam (Keppra) 500 mg BID PO Last administered on 02/14/17 09:13; Admin Dose 500 MG; Start 02/13/17 at 09:00 Pregabalin (Lyrica) 150 mg BID NGT Last administered on 02/14/17 09:12; Admin Dose 150 MG; Start 02/13/17 at 09:00 YFN BRIAN Feb 14, 2017 11:20
--- NOTE | 2017-02-14 12:58 | CONS ---
Date/Time of Note Date/Time of Note DATE: 02/14/17 TIME: 12:57 Assessment/Plan Assessment/Plan Additional Assessment/Plan Atypical chest pain Hypertension DM Ovarian ca Dyslipidemia UTI Hemodynamically stable Stress test shows no reversible ischemia Echo shows preserved systolic function Continue Metoprolol Continue Lisinopril Continue ASA Continue Lipitor Continue Insulin Continue Antibiotics Continue Lovenox Consultation Date/Type/Reason Admit Date/Time Feb 04, 2017 at 00:40 Initial Consult Date Type of Consultation: cardiology Referring Provider: OCBY KRAMER MD Exam/Review of Systems Vital Signs Vitals Vital Signs Date Time Temp Pulse Resp B/P Pulse Ox O2 Delivery O2 Flow Rate FiO2 02/14/17 07:43 98.2 71 18 122/56 95 02/11/17 20:26 Room Air Intake and Output 02/13/17 02/13/17 02/14/17 15:00 23:00 07:00 Intake Total 280 ml 1700 ml 1160 ml Balance 280 ml 1700 ml 1160 ml Results Result Diagram: 02/13/17 1053 02/14/17 0557 Results 24 hrs Laboratory Tests Test 02/13/17 17:14 02/13/17 21:11 02/14/17 01:59 02/14/17 05:57 Bedside Glucose 230 H 235 H 168 Sodium Level 143 Potassium Level 4.5 Chloride Level 107 Carbon Dioxide Level 27 Anion Gap 14 Blood Urea Nitrogen 10 Creatinine 0.49 Glucose Level 171 Calcium Level 9.2 Test 02/14/17 08:33 02/14/17 12:30 Bedside Glucose 139 181 Medications Medications Current Medications Nitroglycerin (Nitroglycerin (Sl Tab) 0.4 Mg) 1 tab Q5M PRN SL ANGINA; Start 02/04/17 at 03:30 Metoprolol Tartrate (Lopressor) 25 mg BID PO Last administered on 02/14/17 09: 13; Admin Dose 25 MG; Start 02/04/17 at 09:00 Enoxaparin Sodium (Lovenox) 40 mg DAILY SC Last administered on 02/14/17 09:36 ; Admin Dose 40 MG; Start 02/04/17 at 09:00 Acetaminophen (Tylenol Tab) 650 mg Q4H PRN PO PAIN AND OR ELEVATED TEMP Last administered on 02/13/17 16:47; Admin Dose 650 MG; Start 02/04/17 at 03:30 Hydromorphone HCl (Dilaudid) 1 mg Q3H PRN IV PAIN LEVEL 8-10 Last administered on 02/13/17 23:53; Admin Dose 1 MG; Start 02/04/17 at 03:30 Ondansetron HCl (Zofran Inj) 4 mg Q4H PRN IV NAUSEA AND/OR VOMITING Last administered on 02/11/17 01:16; Admin Dose 4 MG; Start 02/04/17 at 03:30 Pantoprazole (Protonix Tab) 40 mg DAILY@06 PO Last administered on 02/14/17 06 :36; Admin Dose 40 MG; Start 02/04/17 at 06:00 Aspirin (Aspirin) 325 mg DAILY PO Last administered on 02/14/17 09:11; Admin Dose 325 MG; Start 02/04/17 at 09:00 Atorvastatin Calcium (Lipitor) 20 mg QHS PO Last administered on 02/13/17 21: 08; Admin Dose 20 MG; Start 02/05/17 at 21:00 Docusate Sodium (Colace) 100 mg BID PO Last administered on 02/13/17 21:08; Admin Dose 100 MG; Start 02/05/17 at 00:00 Lisinopril (Zestril) 5 mg DAILY PO Last administered on 02/14/17 09:12; Admin Dose 5 MG; Start 02/05/17 at 09:00 Diagnostic Test (Pha) (Accu-Chek) 1 ea 02 XX Last administered on 02/14/17 01: 59; Admin Dose 1 EA; Start 02/06/17 at 02:00 Miscellaneous Information 1 ea NOTE XX ; Start 02/05/17 at 18:30 Glucose (Glutose) 15 gm Q15M PRN PO DECREASED GLUCOSE; Start 02/05/17 at 18:30 Glucose (Glutose) 22.5 gm Q15M PRN PO DECREASED GLUCOSE; Start 02/05/17 at 18: 30 Dextrose (D50w Syringe) 25 ml Q15M PRN IV DECREASED GLUCOSE; Start 02/05/17 at 18:30 Dextrose (D50w Syringe) 50 ml Q15M PRN IV DECREASED GLUCOSE; Start 02/05/17 at 18:30 Glucagon (Glucagen) 1 mg Q15M PRN IM DECREASED GLUCOSE; Start 02/05/17 at 18: 30 Glucose 15 gm 15 gm Q15M PRN BUCCAL DECREASED GLUCOSE; Start 02/05/17 at 18:30 Potassium Chloride/Sodium Chloride (NS-KCl 20 Meq) 1,000 ml @ 60 mls/hr [id number] IV Last administered on 02/14/17 06:36; Admin Dose 60 MLS/HR; Start 02/07/17 at 16:00 Meclizine HCl 25 mg 25 mg Q6H PRN PO dizziness Last administered on 02/08/17 12:46; Admin Dose 25 MG; Start 02/07/17 at 11:30 Levofloxacin/ Dextrose (Levaquin 500mg/ D5W 100 ml (Pmx)) 100 ml @ 100 mls/hr Q24H IVPB Last administered on 02/13/17 15:49; Admin Dose 100 MLS/HR; Start 02/11/17 at 15:00 Magnesium Hydroxide (Milk Of Mag) 30 ml Q6H PRN PO CONSTIPATION; Start at 23:00 Dexamethasone (Decadron) 4 mg Q6 IV Last administered on 02/14/17 06:36; Admin Dose 4 MG; Start 02/13/17 at 06:00 Levetiracetam (Keppra) 500 mg BID PO Last administered on 02/14/17 09:13; Admin Dose 500 MG; Start 02/13/17 at 09:00 Pregabalin (Lyrica) 150 mg BID NGT Last administered on 02/14/17 09:12; Admin Dose 150 MG; Start 02/13/17 at 09:00 YINA BENAVIDES M.D. Feb 14, 2017 12:58
[2017-02-14 14:24] VITALS: BP 127/62; RESP 18
[2017-02-14] MEDS: LEVOFLOXACIN 500MG/D5W (PMX) 100 ML IVPB SCH (14:57)
--- NOTE | 2017-02-14 18:08 | SP ---
DATE OF PROCEDURE: ELECTROENCEPHALOGRAM The patient is 61 years old with acute dizzy spells, underlying brain tumor with vasogenic edema, wi th possible underlying seizure activity. EEG done using 10-20 international electrode system with p hotic stimulation. Bilateral occipital hemisphere view shows delta and theta waves, medium sized, l ow amplitude, asymmetric bilaterally. Some sharp waves recorded at the left temporal lobe. Photic stimulation done did not elicit a drive. IMPRESSION: This abnormal electroencephalogram showed sharp waves in the left temporal lobe on top of generalized slowing, consistent with the history of postictal status. Followup EEG may be needed if clinically indicated. Dictated By: OSMIN TANNER MD NA/NTS Conf#: [id number] DID#: [id number] CC: COBY KRAMER MD;*EndCC*
--- NOTE | 2017-02-14 18:12 | QN ---
Documentation Comment came to see today but having lengthy / extensive MRI; will evaluate JEFF Jo MD Feb 14, 2017 18:12
[2017-02-14] MEDS: HYDROmorphONE 0.5 MG/0.5 ML SYG IV PRN (19:30)
[2017-02-14 19:50] VITALS: BP 157/69; RESP 19
[2017-02-14] MEDS: ATORVASTATIN 20 MG TAB PO SCH (20:45)
[2017-02-15] MEDS: DEXAMETHASONE 4 MG/ML 1 ML INJ IV SCH ×3 (00:03→12:34)
[2017-02-15 02:08] VITALS: BP 145/66; RESP 19
[2017-02-15] MEDS: ACCU-CHEK XX SCH (02:27)
[2017-02-15] MEDS: NS + KCL 20 MEQ 1,000 ML IV SCH ×3 (02:27→20:30)
[2017-02-15] MEDS: ACETAMINOPHEN 325 MG TAB PO PRN ×2 (06:20→13:47)
[2017-02-15] MEDS: PANTOPRAZOLE (EC) 40 MG TAB PO SCH (06:20)
[2017-02-15 06:25] LABS: BASOPHILS % 0.1 % (0.0-2.0); HEMATOCRIT 31.3 % (37.0-47.0); HEMOGLOBIN 10.4 g/dl (12.0-16.0); LYMPHOCYTES # 1.4 10^3/ul (0.8-2.9); LYMPHOCYTES % 9.8 % (15.0-51.0); MEAN CORPUSCULAR HEMOGLOBIN 27.3 pg (29.0-33.0); MEAN CORPUSCULAR HGB CONC 33.2 g/dl (32.0-37.0); MEAN CORPUSCULAR VOLUME 82.2 fl (82.0-101.0); MEAN PLATELET VOLUME 9.1 fl (7.4-10.4); MONOCYTE # 0.4 10^3/ul (0.3-0.9); MONOCYTES % 3.1 % (0.0-11.0); NEUTROPHIL # 12.2 10^3/ul (1.6-7.5); NEUTROPHILS % 84.7 % (39.0-77.0); PLATELET COUNT 614 10^3/UL (140-415); RED BLOOD COUNT 3.81 10^6/ul (4.20-5.40); RED CELL DISTRIBUTION WIDTH 13.6 % (11.5-14.5); WHITE BLOOD COUNT 14.4 10^3/ul (4.8-10.8)
[2017-02-15 06:55] LABS: CALCIUM 8.9 mg/dl (8.4-10.2); CREATININE 0.58 mg/dl (0.44-1.00); POTASSIUM 4.1 mmol/L (3.5-5.1)
--- NOTE | 2017-02-15 07:46 | CONS ---
DATE OF ADMISSION: 02/04/2017 DATE OF CONSULTATION: HISTORY OF PRESENT ILLNESS: The patient is 61 years old status post dizzy spell, tumor in her brain with surroundings vasogenic edema, possibility of underlying seizure, in which has tolerated here o n Decadron, as well as Keppra until we will get biopsy for her. The patient had ovarian cancer in t he past. PHYSICAL EXAMINATION: GENERAL: Today, the patient is alert, awake, oriented, following simple commands. HEART: Regular rate and rhythm. LUNGS: Equal breath sounds. ABDOMEN: Soft, relaxed, nondistended, nontender. CRANIAL NERVES: Cranial nerve II: Pupils equal on both sides, reactive to light. Cranial nerves I II, IV and : Extraocular muscles intact. Cranial nerve V: Equal sensation to face. Cranial ner ve VII: Symmetrical face. Cranial nerve VIII: Decreased hearing bilaterally. Cranial nerves IX a nd X: Elevates palate. Cranial nerve XI: Elevates shoulder 5/5. Cranial nerve XII: Straight ton nawaf. 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 SENSATION: Decreased for glove and stocking area for light touch and temperature. COORDINATION: [id number] test intact. HEART: Regular rate and rhythm. LUNGS: Equal breath sounds. ASSESSMENT AND PLAN: 1. Patient is 61 years old with underlying malignancy plus vasogenic edema. Continue the patient o n Decadron 4 mg every 6 hours for the swelling and diminished edema. 2. Follow up the patient with possible biopsy for her brain mass tumor. 3. Ovarian cancer with the patient followed by oncologist for that. 4. Keep the patient under seizure precautions. Continue the patient on Keppra 500 mg. 5. Follow up the patient with electroencephalogram. Dictated By: OSMIN TANNER MD NA/NTS Conf#: [id number] DID#: [id number] CC: COBY KRAMER MD;*EndCC*
--- NOTE | 2017-02-15 08:15 | RADRPT ---
PROCEDURE: MRI Cervical Spine. CLINICAL INDICATION: History of ovarian cancer. Evaluate for metastasis. TECHNIQUE: An MRI of the cervical spine was performed utilizing the following sequences: Sagittal T1 weighted, sagittal and axial T2 weighted, sagittal T2 weighted with fat saturation, and axial GRE . COMPARISON: No prior studies are available for comparison. FINDINGS: There is a normal lordosis of the cervical spine. No vertebral body subluxation is seen. The verte bral bodies are normal in height. There is mild heterogeneous bone marrow signal intensity without f ocal suspect marrow lesion. The cervical cord is normal in caliber and signal intensity. The cranioc ervical junction is unremarkable. C2-3: The disk height and signal intensity is preserved. No focal posterior disc herniation. No spi nal canal or neural foraminal stenosis. C3-4: The disk height and signal intensity is preserved. No focal posterior disc herniation. Uncove rtebral osteophytes and facet arthropathy contribute to mild bilateral foraminal stenosis. No spinal canal stenosis. C4-5: The disk height and signal intensity is preserved. Minimal posterior disc osteophyte complex is noted. Uncovertebral osteophytes and facet arthropathy contribute to minimal right and moderate l eft foraminal stenosis. No spinal canal stenosis. C5-6: The disk height is mildly decreased with disc desiccation. There is 3 mm of broad-based poste rior disc osteophyte complex as well as ligamentum flavum thickening which contribute to mild to mod erate spinal canal stenosis. The AP diameter of the spinal canal measures 7 mm. Uncovertebral osteo phytes and facet arthropathy contribute to moderate to severe right and severe left foraminal stenos is. C6-7: The disk height is mildly decreased with disc desiccation. There is mild posterior disc osteo phyte complex without significant spinal canal stenosis. There is ligamentum flavum thickening. Unc overtebral osteophytes and facet arthropathy contribute to minimal bilateral foraminal stenosis. C7-T1: The disk height and signal intensity is preserved. No focal posterior disc herniation. No sp inal canal or neural foraminal stenosis. IMPRESSION: 1. No suspicious focal cervical spine bone marrow signal intensity to suggest metastasis. If clinic al concern persists consider follow-up MRI with contrast. 2. Mild discogenic disease mainly at C5-C6 and C6-C7. 3. Mild to moderate spinal canal narrowing at C5-C6. 4. Multilevel foraminal stenosis more pronounced at C5-C6 as outlined in details in findings. RPTAT: UU .Emy Loyd MD, MD Date Time Electronically viewed and signed by .Emy Loyd MD, MD on 02/15/2017 08:15 .N/
[2017-02-15] MEDS: INSULIN ASPART [NOVOLOG] 3 ML PEN SC SCH ×3 (08:16→21:00)
--- NOTE | 2017-02-15 08:34 | RADRPT ---
PROCEDURE: MRI Thoracic Spine. CLINICAL INDICATION: Mid back pain TECHNIQUE: An MRI of the thoracic spine was performed utilizing the following sequences: Sagittal and axial T2 weighted, axial gradient echo, sagittal T1 weighted and sagittal T2 fat sat COMPARISON: Chest CTA 02/03/2017. FINDINGS: Multiple images are degraded by motion. There is a normal kyphosis of the thoracic spine. The vertebral heights and alignment are maintaine d. There is 1.7 cm T1 and T2 hyperintense lesion in the T6 vertebral body which likely represents a hem angioma. Otherwise mildly to moderately heterogeneous bone marrow signal intensity without suspiciou s focal lesion. There are multilevel mild degenerative changes of thoracic spine with decreased disk spaces and disc desiccation more pronounced at T8-T9 and T9-T10. The thoracic spinal cord is unremarkable in caliber and signal intensity. T1-2 through T11-12: No significant disk bulge or protrusion is seen. No significant spinal canal o r foraminal stenosis. There is partial atelectasis in the bilateral lower lobes and right upper lobe. Small bilateral pleu ral effusions are noted, left greater than right. IMPRESSION: Suboptimal motion degraded study. 1. A 1.7 cm probable hemangioma in the T6 vertebral body. Otherwise mildly to moderately heterogen eous bone marrow signal intensity without suspicious focal lesion to suggest metastasis. If clinica l concern persists consider follow-up MRI with contrast. 2. Multilevel mild discogenic disease of thoracic spine more pronounced at T8-T9 and T9-T10. 3. Partial atelectasis in the bilateral lower lobes and right upper lobe. Small bilateral pleural e ffusions. RPTAT: UU .Emy Loyd MD, MD Date Time Electronically viewed and signed by .Emy Loyd MD, MD on 02/15/2017 08:34 .N/
--- NOTE | 2017-02-15 08:55 | CONS ---
DATE OF ADMISSION: 02/04/2017 DATE OF CONSULTATION: HISTORY OF PRESENT ILLNESS: The patient is 61 years old, admitted with chest pain. The patient had CT angiogram that was negative for pulmonary embolism. The patient referred for cardiology evaluat ion by Dr. Lucero for cardiac reason, chest pain, troponin negative for 3 times. Hypertension, uri nary tract infection, fever, diabetes, ovarian cancer, dyslipidemia. PHYSICAL EXAMINATION: GENERAL: Today, patient is alert, awake, oriented to time, place and person. Normal speech and nor mal language. CRANIAL NERVES: II through XII intact. MOTOR EXAM: Equal on both sides. SENSATION: . COORDINATION: [id number] is intact. HEART: Regular rate and rhythm. LUNGS: Equal breath sounds. ABDOMEN: Soft, relaxed, nondistended, no tenderness. ASSESSMENT AND PLAN: 1. This patient is 61 years old with chest pain who has diabetes. 2. Severity of underlying peripheral neuropathy secondary to diabetes. I started the patient on Ly shanna 150 mg twice a day. Follow up the patient with nerve conduction study and electromyogram for m ore evaluation and treatment. Follow up the patient with Accu-Cheks, sliding scale insulin and hemo globin A1c. 3. The patient has dyslipidemia. 4. Hypertension. 5. Diabetes. We might keep her on aspirin 81 mg for stroke prophylaxis. Again, thank you, Dr. Phelps, for asking me to see the patient with you. Dictated By: OSMIN STAHL/RADHA Conf#: [id number] DID#: [id number]
--- NOTE | 2017-02-15 09:00 | RADRPT ---
PROCEDURE: MRI lumbar spine without contrast CLINICAL INDICATION: History of ovarian cancer. Evaluate for metastasis. TECHNIQUE: An MRI of the lumbar spine was performed utilizing the following sequences: sagittal an d axial T1 weighted, sagittal and axial T2 weighted, and sagittal T2 weighted with fat saturation. COMPARISON: Abdomen pelvis CT 04/12/2016. FINDINGS: There is straightening of the normal lordosis of the lumbar spine. No vertebral body subluxation i s evident. The vertebral bodies are normal in height. There is 7 mm T1 and T2 hyperintense focus in the anterior superior L1 vertebral body which likely represent hemangioma. There is 1.3 cm predom inantly T1 and T2 hypointense and STIR hyperintense lesion in the posterior aspect of L5 vertebral b petey with small central T1 and T2 hyperintensity. Although this may represent an atypical hemangioma metastasis cannot be excluded. The conus medullaris is visible at the L1 level, and is normal in ap pearance. T12 - L1: The disk height and signal intensity are preserved. No posterior disk bulge or herniati on. No significant spinal canal or foraminal stenosis. L1 - L2: The disk height and signal intensity are preserved. No posterior disk bulge or herniatio n. No significant spinal canal or foraminal stenosis. L2 - L3: The disk height is mildly decreased with disc desiccation. There is 2 mm diffuse disc bulg e. Mild bilateral facet arthropathy is noted. No significant spinal canal or foraminal stenosis. L3 - L4: The disk height and signal intensity are preserved. There is 2-3 mm diffuse disc bulge wit h foraminal components. Mild bilateral facet arthropathy is noted. These contribute to mild bilatera l foraminal narrowing. No significant spinal canal stenosis. L4 - L5: The disk height is preserved with mild disc desiccation. There is 2-3 mm diffuse disc bulg e with foraminal components. Mild bilateral facet arthropathy is noted. These contribute to mild john ateral foraminal narrowing. No significant spinal canal stenosis. L5 - S1: The disk height is mildly to moderately decreased with disc desiccation. There is 3-4 mm d iffuse disc bulge with associated annular fissure. Mild bilateral facet arthropathy is noted. These contribute to mild bilateral foraminal narrowing. No significant spinal canal stenosis. IMPRESSION: 1. A 7 mm probable hemangioma in the anterior superior L1 vertebral body. A 1.3 cm predominantly T 1 and T2 hypointense lesion in the posterior aspect of L5 vertebral body with small central T1 and T 2 hyperintensity. Although this may represent an atypical hemangioma metastasis cannot be excluded. If clinical concern persists consider follow-up MRI with contrast. 2. Multilevel lumbar spine discogenic disease, mild to moderate at L5-S1 and mild at L2-L3 and L4-L 5. 3. Multilevel posterior disc bulges without significant spinal canal stenosis. 4. Multilevel mild foraminal stenosis as outlined in details in findings. 5. Straightening of the normal lumbar lordosis. RPTAT: UU .Emy Loyd MD, MD Date Time Electronically viewed and signed by .Emy Loyd MD, on 02/15/2017 08:59 .N/
[2017-02-15] MEDS: LISINOPRIL 5 MG TAB PO SCH (10:01)
[2017-02-15] MEDS: DOCUSATE SODIUM 100 MG CAP PO SCH ×2 (10:01→21:00)
[2017-02-15] MEDS: LEVETIRACETAM 500 MG TAB PO SCH ×2 (10:01→21:00)
[2017-02-15] MEDS: ASPIRIN 325 MG TAB PO SCH (10:01)
[2017-02-15] MEDS: PREGABALIN 75 MG CAP NGT SCH ×2 (10:01→21:00)
[2017-02-15] MEDS: METOPROLOL 25 MG TAB PO SCH ×2 (10:02→21:00)
[2017-02-15] MEDS: ENOXAPARIN 40 MG/0.4 ML SYG SC SCH (10:09)
--- NOTE | 2017-02-15 12:51 | CONS ---
Date/Time of Note Date/Time of Note DATE: 02/15/17 TIME: 12:46 Assessment/Plan Assessment/Plan Chief Complaint/Hosp Course IMp: 1.Chest pain-negatve trop x 3/NL EF by echo this admit/Lexiscan with no ischemia NL EF 2.HTN 3.UTI 4.abnl ecg 5. fevers 6.DM 7.Ovarian ca 8. Dylslipidemia Recc: -Now on med/surg -serial ecg's -continue BB -contineu asa -continue statin -Continue abx's and f/u cx data -pnding initiation of CTX agents held due to ongoing UTI -ongoing eval for neuropathy by neuro with pnding MRI Problems: Consultation Date/Type/Reason Admit Date/Time Feb 04, 2017 at 00:40 Initial Consult Date 02/09/17 Type of Consultation: cardiology Reason for Consultation chest pain Referring Provider: COBY KRAMER MD Exam/Review of Systems Vital Signs Vitals Vital Signs Date Time Temp Pulse Resp B/P Pulse Ox O2 Delivery O2 Flow Rate FiO2 02/15/17 02:08 98.3 67 19 145/66 95 02/11/17 20:26 Room Air Intake and Output 02/14/17 02/14/17 02/15/17 15:00 23:00 07:00 Intake Total 1890 ml 1005 ml Balance 1890 ml 1005 ml Exam Review of Systems: CONSTITUTIONAL: No fevers, chills. PULMONARY: No sob CARDIOVASCULAR: No chest pain/palpitations GASTROINTESTINAL: No nausea/vomiting. GENITOURINARY: No hematuria/dysuria. MUSCULOSKELETAL: No myagias/arthalgias. PSYCHIATRIC: The patient denies depression. NEUROLOGIC: No weakness Constitutional: alert Psych: no complaints Head: normocephalic ENMT: mucosa pink and moist Neck: jvd, supple Respiratory: diminished breath sounds Cardiovascular: regular rate and rhythm Gastrointestinal: non-tender, soft Musculoskeletal: muscle tone (normal) Extremities: edema Neurological: other (peripheral neuropathy) Results Result Diagram: 02/15/17 0601 02/15/17 0600 Results 24 hrs Laboratory Tests Test 02/14/17 17:46 02/14/17 20:47 02/15/17 02:26 02/15/17 06:00 Bedside Glucose 195 209 199 Sodium Level 141 Potassium Level 4.1 Chloride Level 106 Carbon Dioxide Level 26 Anion Gap 13 Blood Urea Nitrogen 16 Creatinine 0.58 Glucose Level 182 Calcium Level 8.9 Test 02/15/17 06:01 02/15/17 08:06 02/15/17 12:22 White Blood Count 14.4 #H Red Blood Count 3.81 L Hemoglobin 10.4 L Hematocrit 31.3 L Mean Corpuscular Volume 82.2 Mean Corpuscular Hemoglobin 27.3 L Mean Corpuscular Hemoglobin Concent 33.2 Red Cell Distribution Width 13.6 Platelet Count 614 H Mean Platelet Volume 9.1 Neutrophils % 84.7 H Lymphocytes % 9.8 L Monocytes % 3.1 Eosinophils % 0.0 Basophils % 0.1 Nucleated Red Blood Cells % 0.0 Neutrophils # 12.2 H Lymphocytes # 1.4 Monocytes # 0.4 Eosinophils # 0.0 Basophils # 0.0 Nucleated Red Blood Cells # 0.0 Bedside Glucose 161 167 Medications Medications Current Medications Nitroglycerin (Nitroglycerin (Sl Tab) 0.4 Mg) 1 tab Q5M PRN SL ANGINA; Start 02/04/17 at 03:30 Metoprolol Tartrate (Lopressor) 25 mg BID PO Last administered on 02/15/17 10: 02; Admin Dose 25 MG; Start 02/04/17 at 09:00 Enoxaparin Sodium (Lovenox) 40 mg DAILY SC Last administered on 02/15/17 10:09 ; Admin Dose 40 MG; Start 02/04/17 at 09:00 Acetaminophen (Tylenol Tab) 650 mg Q4H PRN PO PAIN AND OR ELEVATED TEMP Last administered on 02/15/17 06:20; Admin Dose 650 MG; Start 02/04/17 at 03:30 Hydromorphone HCl (Dilaudid) 1 mg Q3H PRN IV PAIN LEVEL 8-10 Last administered on 02/14/17 19:30; Admin Dose 1 MG; Start 02/04/17 at 03:30 Ondansetron HCl (Zofran Inj) 4 mg Q4H PRN IV NAUSEA AND/OR VOMITING Last administered on 02/11/17 01:16; Admin Dose 4 MG; Start 02/04/17 at 03:30 Pantoprazole (Protonix Tab) 40 mg DAILY@06 PO Last administered on 02/15/17 06 :20; Admin Dose 40 MG; Start 02/04/17 at 06:00 Aspirin (Aspirin) 325 mg DAILY PO Last administered on 02/15/17 10:01; Admin Dose 325 MG; Start 02/04/17 at 09:00 Atorvastatin Calcium (Lipitor) 20 mg QHS PO Last administered on 02/14/17 20: 45; Admin Dose 20 MG; Start 02/05/17 at 21:00 Docusate Sodium (Colace) 100 mg BID PO Last administered on 02/15/17 10:01; Admin Dose 100 MG; Start 02/05/17 at 00:00 Lisinopril (Zestril) 5 mg DAILY PO Last administered on 02/15/17 10:01; Admin Dose 5 MG; Start 02/05/17 at 09:00 Diagnostic Test (Pha) (Accu-Chek) 1 ea 02 XX Last administered on 02/15/17 02: 27; Admin Dose 1 EA; Start 02/06/17 at 02:00 Miscellaneous Information 1 ea NOTE XX ; Start 02/05/17 at 18:30 Glucose (Glutose) 15 gm Q15M PRN PO DECREASED GLUCOSE; Start 02/05/17 at 18:30 Glucose (Glutose) 22.5 gm Q15M PRN PO DECREASED GLUCOSE; Start 02/05/17 at 18: 30 Dextrose (D50w Syringe) 25 ml Q15M PRN IV DECREASED GLUCOSE; Start 02/05/17 at 18:30 Dextrose (D50w Syringe) 50 ml Q15M PRN IV DECREASED GLUCOSE; Start 02/05/17 at 18:30 Glucagon (Glucagen) 1 mg Q15M PRN IM DECREASED GLUCOSE; Start 02/05/17 at 18: 30 Glucose 15 gm 15 gm Q15M PRN BUCCAL DECREASED GLUCOSE; Start 02/05/17 at 18:30 Potassium Chloride/Sodium Chloride (NS-KCl 20 Meq) 1,000 ml @ 60 mls/hr [id number] IV Last administered on 02/15/17 02:27; Admin Dose 60 MLS/HR; Start 02/07/17 at 16:00 Meclizine HCl (Antivert) 25 mg Q6H PRN PO dizziness Last administered on 12:46; Admin Dose 25 MG; Start 02/07/17 at 11:30 Magnesium Hydroxide (Milk Of Mag) 30 ml Q6H PRN PO CONSTIPATION; Start at 23:00 Dexamethasone (Decadron) 4 mg Q6 IV Last administered on 02/15/17 12:34; Admin Dose 4 MG; Start 02/13/17 at 06:00 Levetiracetam (Keppra) 500 mg BID PO Last administered on 02/15/17 10:01; Admin Dose 500 MG; Start 02/13/17 at 09:00 Pregabalin (Lyrica) 150 mg BID NGT Last administered on 02/15/17 10:01; Admin Dose 150 MG; Start 02/13/17 at 09:00 Levofloxacin (Levaquin) 500 mg DAILY@06 PO ; Start 02/15/17 at 15:00 CHRIS FINK Feb 15, 2017 12:51
[2017-02-15 13:58] VITALS: BP 152/69; RESP 20
--- NOTE | 2017-02-15 14:11 | PN ---
DATE: 02/15/2017 SUBJECTIVE: Patient still states that she has dizziness when she tries to walk also still complains of headache. OBJECTIVE: GENERAL: Patient is a well-developed, well-nourished female who is rather tearful today. VITAL SIGNS: Temperature 98.3, pulse 67, respirations 19, blood pressure 145/66, pulse oximetry 95% . SKIN: No ecchymosis, no petechiae or rashes. HEENT: No mucosal lesions. No scleral icterus. NECK: Supple, no jugular venous distention or thyroid enlargement. CHEST: Clear to auscultation and percussion. No rhonchi, wheezes, rales or rubs. ABDOMEN: Soft. There are no masses or ascites. Bowel sounds are active. EXTREMITIES: Good range of motion, no clubbing, edema or cyanosis. No palpable cords or Homans sig n. NEUROLOGIC: Normal. There are no focal neurologic abnormalities. No nystagmus. The patient has had an EEG which is abnormal and shows sharp waves in the left temporal area. This is consistent it is felt with a postictal status. White count 14,400 with 84% neutrophils, hemoglob in 10.4, hematocrit 31.3, platelet count 614,000. Sodium 141, potassium 4.1, creatinine 0.58, BUN 1 6, calcium 8.9. ASSESSMENT 1. Recurrent ovarian carcinoma. 2. 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 DISCUSSION: The patient has been found to have the solitary lesion on MRI. This may explain the pa tient's neurologic symptoms. This patient does have what appears to be an aggressive ovarian carcinoma rapidly after a surgery th at showed no evidence of recurrent disease. Given the rapidity of recurrence of this tumor intraabdominally, it should be assumed that this MACHINE STACKER lesion is likely an ovarian metastases, although ovarian carcinoma does not frequently metastasized to the brain. I would favor a stereotactic radiation rather than a craniotomy if this is in fact demonstrated to b e ovarian carcinoma. This patient is also to receive systemic therapy for the intra-abdominal recurrence. Dictated By: DAVID MESA MD, SR/RADHA Conf#: [id number] DID#: [id number]
[2017-02-15] MEDS: LEVOFLOXACIN 500 MG TAB PO SCH (15:31)
[2017-02-15 19:30] VITALS: BP 136/60; RESP 20
[2017-02-15] MEDS: ATORVASTATIN 20 MG TAB PO SCH (21:00)
[2017-02-16] MEDS: HYDROmorphONE 0.5 MG/0.5 ML SYG IV PRN ×4 (00:24→21:08)
[2017-02-16] MEDS: DEXAMETHASONE 4 MG/ML 1 ML INJ IV SCH ×5 (00:25→17:45)
[2017-02-16] MEDS: ACCU-CHEK XX SCH (02:00)
[2017-02-16 02:19] VITALS: BP 120/58; RESP 20
[2017-02-16] MEDS: LEVOFLOXACIN 500 MG TAB PO SCH (06:23)
[2017-02-16] MEDS: PANTOPRAZOLE (EC) 40 MG TAB PO SCH (06:23)
[2017-02-16 07:32] VITALS: BP 141/65; RESP 16
--- NOTE | 2017-02-16 07:41 | PN ---
DATE: 02/15/2017 INTERNAL MEDICINE PROGRESS NOTE SUBJECTIVE: Patient complains of dizziness and headache. Denies any nausea, vomiting. Denies feve rs. OBJECTIVE: VITAL SIGNS: Unable to dictate vital signs due to computers are down; however, vital signs are stab le per prior evaluation today. GENERAL: Well-developed, well-nourished female in no acute distress. LUNGS: Clear. No rhonchi, wheezes, rales noted. HEART: Normal S1, S2. ABDOMEN: Bowel sounds present. No guarding, no tenderness. EXTREMITIES: No edema, clubbing, cyanosis. ASSESSMENT AND PLAN: 1. Patient is status post hysterectomy for ovarian carcinoma. Dr. Bang is following in oncology consultation. Now patient had a lesion per MRI of the brain, undergoing further evaluation by onco logy. 2. Chest pain, resolved. 3. Urinary tract infection. Continue Levaquin. 4. Dizziness. Dr. Mera is following in neurology consultation. Further recommendations based on clinical course. Plan of care discussed with Dr. Kramer. Dictated By: MATHIEU WALSH CLAY WASHER for COBY KRAMER MD SR/NTS Conf#: [id number] DID#: [id number] CC: COBY KRAMER MD;*EndCC*
[2017-02-16] MEDS: INSULIN ASPART [NOVOLOG] 3 ML PEN SC SCH ×4 (08:29→21:00)
--- NOTE | 2017-02-16 09:02 | CONS ---
Date/Time of Note Date/Time of Note DATE: 02/16/17 TIME: 09:00 Assessment/Plan Assessment/Plan Additional Assessment/Plan 1.Chest pain-negatve trop x 3/NL EF by echo this admit/Lexiscan with no ischemia NL EF - no intervention planned 2.HTN - well Rx, con't med Rx now 3.UTI - on anti-bx 4.abnl ecg - off tele now, no CP 5. fevers - no new episodes now 6.DM - on meds, will keep euglycemic 7.Ovarian ca - oncology follows 8. Dylslipidemia Consultation Date/Type/Reason Admit Date/Time Feb 04, 2017 at 00:40 Type of Consultation: cardiology Referring Provider: COBY KRAMER MD 24 HR Interval Summary Free Text/Dictation NO acute events - no fevers. BP in good range - con't off tele monitoring now. ROS: No fever, no chills, no nausea, no vomiting, no diarrhea/constipation No recent weight changes No chest pain, no PND, no orthopnea No dizziness, blurred vision No thirst, no heat or cold intolerance Exam/Review of Systems Vital Signs Vitals Vital Signs Date Time Temp Pulse Resp B/P Pulse Ox O2 Delivery O2 Flow Rate FiO2 02/16/17 07:32 98.2 63 16 141/65 94 Intake and Output 02/15/17 02/15/17 02/16/17 15:00 23:00 07:00 Intake Total 1420 ml 860 ml Output Total 850 ml Balance 570 ml 860 ml Exam General: WN/WD/NAD, AOx 3 HEENT: Unicetric/atraumatic/EOMI ( follow commands) NECK: JVD elevated, no thyromegaly Lymph: no lymphadenopathy HEART: regular with no S3, II/ systolic murmur at apex LUNGS: Coarse sounds ABD: soft, NT, ND, +BS : Intact Neuro: non focal SKIN: chronic changes EXT: trace edema Results Result Diagram: 02/15/17 0601 02/15/17 0600 Results 24 hrs Laboratory Tests Test 02/15/17 12:22 02/15/17 17:34 02/15/17 21:18 02/16/17 08:24 Bedside Glucose 167 184 178 159 Medications Medications Current Medications Nitroglycerin (Nitroglycerin (Sl Tab) 0.4 Mg) 1 tab Q5M PRN SL ANGINA; Start 02/04/17 at 03:30 Metoprolol Tartrate (Lopressor) 25 mg BID PO Last administered on 02/15/17 21: 00; Admin Dose 25 MG; Start 02/04/17 at 09:00 Enoxaparin Sodium (Lovenox) 40 mg DAILY SC Last administered on 02/15/17 10:09 ; Admin Dose 40 MG; Start 02/04/17 at 09:00 Acetaminophen (Tylenol Tab) 650 mg Q4H PRN PO PAIN AND OR ELEVATED TEMP Last administered on 02/15/17 13:47; Admin Dose 650 MG; Start 02/04/17 at 03:30 Hydromorphone HCl (Dilaudid) 1 mg Q3H PRN IV PAIN LEVEL 8-10 Last administered on 02/16/17 06:42; Admin Dose 1 MG; Start 02/04/17 at 03:30 Ondansetron HCl (Zofran Inj) 4 mg Q4H PRN IV NAUSEA AND/OR VOMITING Last administered on 02/11/17 01:16; Admin Dose 4 MG; Start 02/04/17 at 03:30 Pantoprazole (Protonix Tab) 40 mg DAILY@06 PO Last administered on 02/16/17 06 :23; Admin Dose 40 MG; Start 02/04/17 at 06:00 Aspirin (Aspirin) 325 mg DAILY PO Last administered on 02/15/17 10:01; Admin Dose 325 MG; Start 02/04/17 at 09:00 Atorvastatin Calcium (Lipitor) 20 mg QHS PO Last administered on 02/15/17 21: 00; Admin Dose 20 MG; Start 02/05/17 at 21:00 Docusate Sodium (Colace) 100 mg BID PO Last administered on 02/15/17 21:00; Admin Dose 100 MG; Start 02/05/17 at 00:00 Lisinopril (Zestril) 5 mg DAILY PO Last administered on 02/15/17 10:01; Admin Dose 5 MG; Start 02/05/17 at 09:00 Diagnostic Test (Pha) (Accu-Chek) 1 ea 02 XX Last administered on 02/15/17 02: 27; Admin Dose 1 EA; Start 02/06/17 at 02:00 Miscellaneous Information 1 ea NOTE XX ; Start 02/05/17 at 18:30 Glucose (Glutose) 15 gm Q15M PRN PO DECREASED GLUCOSE; Start 02/05/17 at 18:30 Glucose (Glutose) 22.5 gm Q15M PRN PO DECREASED GLUCOSE; Start 02/05/17 at 18: 30 Dextrose (D50w Syringe) 25 ml Q15M PRN IV DECREASED GLUCOSE; Start 02/05/17 at 18:30 Dextrose (D50w Syringe) 50 ml Q15M PRN IV DECREASED GLUCOSE; Start 02/05/17 at 18:30 Glucagon (Glucagen) 1 mg Q15M PRN IM DECREASED GLUCOSE; Start 02/05/17 at 18: 30 Glucose 15 gm 15 gm Q15M PRN BUCCAL DECREASED GLUCOSE; Start 02/05/17 at 18:30 Potassium Chloride/Sodium Chloride (NS-KCl 20 Meq) 1,000 ml @ 60 mls/hr [id number] IV Last administered on 02/15/17 20:30; Admin Dose 60 MLS/HR; Start 02/07/17 at 16:00 Meclizine HCl (Antivert) 25 mg Q6H PRN PO dizziness Last administered on 12:46; Admin Dose 25 MG; Start 02/07/17 at 11:30 Magnesium Hydroxide (Milk Of Mag) 30 ml Q6H PRN PO CONSTIPATION; Start at 23:00 Dexamethasone (Decadron) 4 mg Q6 IV Last administered on 02/16/17 06:23; Admin Dose 4 MG; Start 02/13/17 at 06:00 Levetiracetam (Keppra) 500 mg BID PO Last administered on 02/15/17 21:00; Admin Dose 500 MG; Start 02/13/17 at 09:00 Pregabalin (Lyrica) 150 mg BID NGT Last administered on 02/15/17 21:00; Admin Dose 150 MG; Start 02/13/17 at 09:00 Levofloxacin (Levaquin) 500 mg DAILY@06 PO Last administered on 02/16/17 06:23 ; Admin Dose 500 MG; Start 02/15/17 at 15:00 JANUARY YU MD Feb 16, 2017 09:02
[2017-02-16] MEDS: LEVETIRACETAM 500 MG TAB PO SCH ×2 (09:40→21:00)
[2017-02-16] MEDS: PREGABALIN 75 MG CAP NGT SCH ×2 (09:40→21:00)
[2017-02-16] MEDS: ASPIRIN 325 MG TAB PO SCH (09:42)
[2017-02-16] MEDS: METOPROLOL 25 MG TAB PO SCH ×2 (09:42→21:00)
[2017-02-16] MEDS: DOCUSATE SODIUM 100 MG CAP PO SCH ×2 (09:42→21:00)
[2017-02-16] MEDS: LISINOPRIL 5 MG TAB PO SCH (09:43)
[2017-02-16] MEDS: ENOXAPARIN 40 MG/0.4 ML SYG SC SCH (09:46)
--- NOTE | 2017-02-16 12:10 | PN ---
Date/Time of Note Date/Time of Note DATE: 02/16/17 TIME: 12:10 Assessment/Plan VTE Prophylaxis VTE Prophylaxis Intervention: SCD's Lines/Catheters IV [facility]ter [facility] (from [facility]): SA[facility]ABH CATH Urinary Cath still in place: No Assessment/Plan Chief Complaint/Hosp Course Patient continues to complain of dizziness, remains hemodynamically stable, afebrile. Assessment/Plan -UTI, continue Levaquin. - Chest pain, rule out acute coronary syndrome. CTA is negative for PE. Dr Lucero in following in cardiology consultation. - Recurrent/persistent ovarian cancer, status post secondary cytoreduction surgery by Dr Hayes. Dr. Bang is following in oncology consultation. - DM with hemoglobin A1c 6.3. Continue NovoLog per mild algorithm sliding scale. - Possible seizures, continue Keppra - Vertigo, continue Meclizine. Further recommendations based on clinical course. Plan of care discussed with Dr. Phelps. Problems: Exam/Review of Systems Vital Signs Vitals Vital Signs Date Time Temp Pulse Resp B/P Pulse Ox O2 Delivery O2 Flow Rate FiO2 02/16/17 07:32 98.2 63 16 141/65 94 Intake and Output 02/15/17 02/15/17 02/16/17 15:00 23:00 07:00 Intake Total 1420 ml 860 ml Output Total 850 ml Balance 570 ml 860 ml Exam Constitutional: alert, oriented Respiratory: normal air movement Cardiovascular: nl pulses Gastrointestinal: non-tender, soft Neurological: nl mental status Skin: nl turgor Results Result Diagram: 02/15/17 0601 02/15/17 0600 Results 24 hrs Laboratory Tests Test 02/15/17 12:22 02/15/17 17:34 02/15/17 21:18 02/16/17 08:24 Bedside Glucose 167 184 178 159 Test 02/16/17 12:03 Bedside Glucose 165 Medications Medications Current Medications Nitroglycerin (Nitroglycerin (Sl Tab) 0.4 Mg) 1 tab Q5M PRN SL ANGINA; Start 02/04/17 at 03:30 Metoprolol Tartrate (Lopressor) 25 mg BID PO Last administered on 02/16/17 09: 42; Admin Dose 25 MG; Start 02/04/17 at 09:00 Enoxaparin Sodium (Lovenox) 40 mg DAILY SC Last administered on 02/16/17 09:46 ; Admin Dose 40 MG; Start 02/04/17 at 09:00 Acetaminophen (Tylenol Tab) 650 mg Q4H PRN PO PAIN AND OR ELEVATED TEMP Last administered on 02/15/17 13:47; Admin Dose 650 MG; Start 02/04/17 at 03:30 Hydromorphone HCl (Dilaudid) 1 mg Q3H PRN IV PAIN LEVEL 8-10 Last administered on 02/16/17 06:42; Admin Dose 1 MG; Start 02/04/17 at 03:30 Ondansetron HCl (Zofran Inj) 4 mg Q4H PRN IV NAUSEA AND/OR VOMITING Last administered on 02/11/17 01:16; Admin Dose 4 MG; Start 02/04/17 at 03:30 Pantoprazole (Protonix Tab) 40 mg DAILY@06 PO Last administered on 02/16/17 06 :23; Admin Dose 40 MG; Start 02/04/17 at 06:00 Aspirin (Aspirin) 325 mg DAILY PO Last administered on 02/16/17 09:42; Admin Dose 325 MG; Start 02/04/17 at 09:00 Atorvastatin Calcium (Lipitor) 20 mg QHS PO Last administered on 02/15/17 21: 00; Admin Dose 20 MG; Start 02/05/17 at 21:00 Docusate Sodium (Colace) 100 mg BID PO Last administered on 02/16/17 09:42; Admin Dose 100 MG; Start 02/05/17 at 00:00 Lisinopril (Zestril) 5 mg DAILY PO Last administered on 02/16/17 09:43; Admin Dose 5 MG; Start 02/05/17 at 09:00 Diagnostic Test (Pha) (Accu-Chek) 1 ea 02 XX Last administered on 02/15/17 02: 27; Admin Dose 1 EA; Start 02/06/17 at 02:00 Miscellaneous Information 1 ea NOTE XX ; Start 02/05/17 at 18:30 Glucose (Glutose) 15 gm Q15M PRN PO DECREASED GLUCOSE; Start 02/05/17 at 18:30 Glucose (Glutose) 22.5 gm Q15M PRN PO DECREASED GLUCOSE; Start 02/05/17 at 18: 30 Dextrose (D50w Syringe) 25 ml Q15M PRN IV DECREASED GLUCOSE; Start 02/05/17 at 18:30 Dextrose (D50w Syringe) 50 ml Q15M PRN IV DECREASED GLUCOSE; Start 02/05/17 at 18:30 Glucagon (Glucagen) 1 mg Q15M PRN IM DECREASED GLUCOSE; Start 02/05/17 at 18: 30 Glucose 15 gm 15 gm Q15M PRN BUCCAL DECREASED GLUCOSE; Start 02/05/17 at 18:30 Potassium Chloride/Sodium Chloride (NS-KCl 20 Meq) 1,000 ml @ 60 mls/hr [id number] IV Last administered on 02/15/17 20:30; Admin Dose 60 MLS/HR; Start 02/07/17 at 16:00 Meclizine HCl (Antivert) 25 mg Q6H PRN PO dizziness Last administered on 12:46; Admin Dose 25 MG; Start 02/07/17 at 11:30 Magnesium Hydroxide (Milk Of Mag) 30 ml Q6H PRN PO CONSTIPATION; Start at 23:00 Dexamethasone (Decadron) 4 mg Q6 IV Last administered on 02/16/17 06:23; Admin Dose 4 MG; Start 02/13/17 at 06:00 Levetiracetam (Keppra) 500 mg BID PO Last administered on 02/16/17 09:40; Admin Dose 500 MG; Start 02/13/17 at 09:00 Pregabalin (Lyrica) 150 mg BID NGT Last administered on 02/16/17 09:40; Admin Dose 150 MG; Start 02/13/17 at 09:00 Levofloxacin (Levaquin) 500 mg DAILY@06 PO Last administered on 02/16/17 06:23 ; Admin Dose 500 MG; Start 02/15/17 at 15:00 MATHIEU WALSH Feb 16, 2017 12:10
[2017-02-16 13:40] VITALS: BP 109/55; RESP 16
[2017-02-16] MEDS: NS + KCL 20 MEQ 1,000 ML IV SCH (17:42)
[2017-02-16 19:19] VITALS: BP 123/58; RESP 20
--- NOTE | 2017-02-16 20:13 | PN ---
DATE: 02/16/2017 SUBJECTIVE: The patient states that she is feeling slightly better. Still complains of dizziness w hen she turns her head or changes position. Is not dizzy when just looking straight head. This is not associated with any blurred vision or diplopia. She does not have nausea or vomiting. The patient does complain of some feeling of head fullness. Also is experiencing some increased stephani mulousness as well as increased appetite. Some difficulty sleeping. OBJECTIVE: GENERAL: Patient is a well-developed, well-nourished female who is in no acute distress. VITAL SIGNS: Temperature 98.6, pulse 78 per minute and regular, respirations 20, blood pressure 123 /58 and pulse oximetry is 95% on room air. SKIN: No ecchymosis, no petechiae or rashes. HEENT: Normocephalic. No evidence of trauma. The pupils are equal, round, react to light and acco mmodation. Sclerae nonicteric. Oral mucosa is moist without lesions. NECK: Supple, no jugular venous distention or thyroid enlargement. No carotid bruits. CHEST: Clear to auscultation and percussion. No rhonchi, wheezes, rales or rubs. There is no pain on percussion of spine, sternum, clavicles or ribs. There is a Port-A-Cath in the right anterior c hest which is accessed. HEART: Regular sinus rhythm, no S3, S4 or murmurs. No rubs. ABDOMEN: Soft, no masses, no ascites. Bowel sounds are active. EXTREMITIES: Good range of motion. No clubbing, no edema or cyanosis. No palpable cords or Homans sign. NEUROLOGIC: Does not reveal any focal neurologic abnormalities at this time. White count on 02/15/2017 was 14,400, hemoglobin 10.4, hematocrit 31.3, platelet count 614,000. ASSESSMENT: 1. Recurrent ovarian carcinoma. 2. Possible [employer] metastases. 3. Diabetes mellitus. DISCUSSION: The patient does have leukocytosis which is due to the corticosteroids. The patient has had no seizures. Some of her symptoms seem to have improved following the initiatio n of corticosteroids, but is still unclear whether the lesion seen on MRI does represent a metastati c lesion and if, in fact, it is metastases whether or not this represents a metastases from ovarian carcinoma. We will recheck CBC, chemistries and in the morning. Dictated By: DAVID MESA MD, SR/RADHA Conf#: [id number] DID#: [id number]
[2017-02-16] MEDS: ATORVASTATIN 20 MG TAB PO SCH (21:00)
[2017-02-17] MEDS: DEXAMETHASONE 4 MG/ML 1 ML INJ IV SCH ×5 (00:08→23:18)
[2017-02-17 01:46] VITALS: BP 133/67; RESP 20
[2017-02-17] MEDS: ACCU-CHEK XX SCH (02:00)
[2017-02-17] MEDS: PANTOPRAZOLE (EC) 40 MG TAB PO SCH (05:24)
[2017-02-17] MEDS: LEVOFLOXACIN 500 MG TAB PO SCH (05:24)
[2017-02-17 05:59] LABS: BASOPHILS % 0.1 % (0.0-2.0); HEMATOCRIT 32.6 % (37.0-47.0); HEMOGLOBIN 10.9 g/dl (12.0-16.0); LYMPHOCYTES # 1.3 10^3/ul (0.8-2.9); LYMPHOCYTES % 12.8 % (15.0-51.0); MEAN CORPUSCULAR HEMOGLOBIN 27.2 pg (29.0-33.0); MEAN CORPUSCULAR HGB CONC 33.4 g/dl (32.0-37.0); MEAN CORPUSCULAR VOLUME 81.3 fl (82.0-101.0); MEAN PLATELET VOLUME 9.3 fl (7.4-10.4); MONOCYTE # 0.5 10^3/ul (0.3-0.9); NUCLEATED RED BLOOD CELLS% 0.2 /100WBC (0.0-0.0); PLATELET COUNT 624 10^3/UL (140-415); RED BLOOD COUNT 4.01 10^6/ul (4.20-5.40); RED CELL DISTRIBUTION WIDTH 13.7 % (11.5-14.5); WHITE BLOOD COUNT 10.1 10^3/ul (4.8-10.8)
[2017-02-17 06:33] LABS: CALCIUM 9.1 mg/dl (8.4-10.2); CREATININE 0.65 mg/dl (0.44-1.00); POTASSIUM 4.1 mmol/L (3.5-5.1)
[2017-02-17 08:03] VITALS: BP 160/66; RESP 16
[2017-02-17] MEDS: INSULIN ASPART [NOVOLOG] 3 ML PEN SC SCH ×4 (08:30→20:42)
[2017-02-17] MEDS: LEVETIRACETAM 500 MG TAB PO SCH ×2 (08:33→20:32)
[2017-02-17] MEDS: ASPIRIN 325 MG TAB PO SCH (08:33)
[2017-02-17] MEDS: METOPROLOL 25 MG TAB PO SCH ×2 (08:34→20:33)
[2017-02-17] MEDS: DOCUSATE SODIUM 100 MG CAP PO SCH ×4 (08:34→20:32)
[2017-02-17] MEDS: MECLIZINE 25 MG TAB PO SCH ×3 (08:35→20:31)
[2017-02-17] MEDS: PREGABALIN 75 MG CAP NGT SCH ×2 (08:36→20:32)
[2017-02-17] MEDS: ENOXAPARIN 40 MG/0.4 ML SYG SC SCH (08:37)
--- NOTE | 2017-02-17 08:54 | PN ---
DATE: 02/17/2017 SUBJECTIVE: The patient states that the dizziness is slightly improved, is complaining of some head ache. This is unchanged. It is not localized. The patient denies any blurred vision. No mouth discomfort. She has had no seizures. OBJECTIVE: GENERAL: The patient is a well-developed, well-nourished female in no acute distress. VITAL SIGNS: Temperature is 98.2, pulse 64 per minute and regular, respirations 16, blood pressure 160/66, and pulse oximetry is 96% on room air. SKIN: No ecchymosis, no petechiae or rashes. HEENT: Normocephalic. No evidence of trauma. Pupils equal, round, reactive to light and accommoda tion. There is no scleral icterus. Oral mucosa is moist without lesions. There is no evidence of monilia. NECK: Supple, no jugular venous distention or thyroid enlargement. No carotid bruits. CHEST: Clear to auscultation and percussion. No rhonchi, wheezes, rales or rubs. There is a Port- A-Cath in the right anterior chest which has been accessed. HEART: Regular sinus rhythm, no S3, S4 or murmurs. No rubs. ABDOMEN: Mildly distended but soft. There are no masses, no hernia defects. EXTREMITIES: Good range of motion. No clubbing, no edema or cyanosis. No palpable cords or Homans sign. NEUROLOGIC: Normal. There are no focal neurologic abnormalities. The patient does not have any ny stagmus, or ataxia. White count 10,100 with 79% neutrophils, hemoglobin 10.9, hematocrit 32.6, and platelet count 624,00 0. ASSESSMENT: 1. Recurrent ovarian carcinoma. 2. Possible cerebral metastases. 3. Diabetes mellitus. PLAN: Awaiting further scans and any decisions regarding further evaluation of the patient's possib le cerebral metastases noted on MRI scan. The patient does require systemic therapy for her recurrent ovarian carcinoma. The plan was to be a dministered therapy with carboplatin and gemcitabine. Dictated By: DAVID MESA MD, SR/NTS Conf#: [id number] DID#: [id number]
[2017-02-17] MEDS: NS + KCL 20 MEQ 1,000 ML IV SCH (09:20)
[2017-02-17] MEDS: LISINOPRIL 5 MG TAB PO SCH (09:58)
--- NOTE | 2017-02-17 11:51 | PN ---
Date/Time of Note Date/Time of Note DATE: 02/17/17 TIME: 11:45 Assessment/Plan VTE Prophylaxis VTE Prophylaxis Intervention: SCD's Lines/Catheters [facility] rosa cath Urinary Cath still in place: No Assessment/Plan Chief Complaint/Hosp Course Patient continues to complain of dizziness, patient's complains of constipation. Assessment/Plan -UTI, continue Levaquin. - Chest pain, rule out acute coronary syndrome. CTA is negative for PE. Dr Lucero in following in cardiology consultation. - Recurrent/persistent ovarian cancer, status post secondary cytoreduction surgery by Dr Hayes. Dr. Bang is following in oncology consultation. - Possible cerebral metastases. Continue steroids. - DM with hemoglobin A1c 6.3. Continue NovoLog per mild algorithm sliding scale. - Possible seizures, continue Keppra - Vertigo, continue Meclizine. Further recommendations based on clinical course. Plan of care discussed with Dr. Phelps. Problems: Exam/Review of Systems Vital Signs Vitals Vital Signs Date Time Temp Pulse Resp B/P Pulse Ox O2 Delivery O2 Flow Rate FiO2 02/17/17 08:03 98.2 64 16 160/66 96 Intake and Output 02/16/17 02/16/17 02/17/17 15:00 23:00 07:00 Intake Total 500 ml 1200 ml 940 ml Balance 500 ml 1200 ml 940 ml Exam Constitutional: alert, oriented Respiratory: normal air movement Cardiovascular: nl pulses Gastrointestinal: non-tender, soft Neurological: nl mental status Skin: nl turgor Results Result Diagram: 02/17/17 0525 02/17/17 0525 Results 24 hrs Laboratory Tests Test 02/16/17 12:03 02/16/17 20:59 02/17/17 05:25 02/17/17 08:13 Bedside Glucose 165 175 169 White Blood Count 10.1 # Red Blood Count 4.01 L Hemoglobin 10.9 L Hematocrit 32.6 L Mean Corpuscular Volume 81.3 L Mean Corpuscular Hemoglobin 27.2 L Mean Corpuscular Hemoglobin Concent 33.4 Red Cell Distribution Width 13.7 Platelet Count 624 H Mean Platelet Volume 9.3 Neutrophils % 79.0 H Lymphocytes % 12.8 L Monocytes % 5.0 Eosinophils % 0.0 Basophils % 0.1 Nucleated Red Blood Cells % 0.2 H Neutrophils # 8.0 H Lymphocytes # 1.3 Monocytes # 0.5 Eosinophils # 0.0 Basophils # 0.0 Nucleated Red Blood Cells # 0.0 Sodium Level 139 Potassium Level 4.1 Chloride Level 104 Carbon Dioxide Level 24 Anion Gap 15 Blood Urea Nitrogen 25 H Creatinine 0.65 Glucose Level 176 Calcium Level 9.1 Magnesium Level 2.0 Medications Medications Current Medications Nitroglycerin (Nitroglycerin (Sl Tab) 0.4 Mg) 1 tab Q5M PRN SL ANGINA; Start 02/04/17 at 03:30 Metoprolol Tartrate (Lopressor) 25 mg BID PO Last administered on 02/17/17 08: 34; Admin Dose 25 MG; Start 02/04/17 at 09:00 Enoxaparin Sodium (Lovenox) 40 mg DAILY SC Last administered on 02/17/17 08:37 ; Admin Dose 40 MG; Start 02/04/17 at 09:00 Acetaminophen (Tylenol Tab) 650 mg Q4H PRN PO PAIN AND OR ELEVATED TEMP Last administered on 02/15/17 13:47; Admin Dose 650 MG; Start 02/04/17 at 03:30 Hydromorphone HCl (Dilaudid) 1 mg Q3H PRN IV PAIN LEVEL 8-10 Last administered on 02/16/17 21:08; Admin Dose 1 MG; Start 02/04/17 at 03:30 Ondansetron HCl (Zofran Inj) 4 mg Q4H PRN IV NAUSEA AND/OR VOMITING Last administered on 02/11/17 01:16; Admin Dose 4 MG; Start 02/04/17 at 03:30 Pantoprazole (Protonix Tab) 40 mg DAILY@06 PO Last administered on 02/17/17 05 :24; Admin Dose 40 MG; Start 02/04/17 at 06:00 Aspirin (Aspirin) 325 mg DAILY PO Last administered on 02/17/17 08:33; Admin Dose 325 MG; Start 02/04/17 at 09:00 Atorvastatin Calcium (Lipitor) 20 mg QHS PO Last administered on 02/16/17 21: 00; Admin Dose 20 MG; Start 02/05/17 at 21:00 Docusate Sodium (Colace) 100 mg BID PO Last administered on 02/17/17 08:34; Admin Dose 100 MG; Start 02/05/17 at 00:00 Lisinopril (Zestril) 5 mg DAILY PO Last administered on 02/17/17 09:58; Admin Dose 5 MG; Start 02/05/17 at 09:00 Diagnostic Test (Pha) (Accu-Chek) 1 ea 02 XX Last administered on 02/15/17 02: 27; Admin Dose 1 EA; Start 02/06/17 at 02:00 Miscellaneous Information 1 ea NOTE XX ; Start 02/05/17 at 18:30 Glucose (Glutose) 15 gm Q15M PRN PO DECREASED GLUCOSE; Start 02/05/17 at 18:30 Glucose (Glutose) 22.5 gm Q15M PRN PO DECREASED GLUCOSE; Start 02/05/17 at 18: 30 Dextrose (D50w Syringe) 25 ml Q15M PRN IV DECREASED GLUCOSE; Start 02/05/17 at 18:30 Dextrose (D50w Syringe) 50 ml Q15M PRN IV DECREASED GLUCOSE; Start 02/05/17 at 18:30 Glucagon (Glucagen) 1 mg Q15M PRN IM DECREASED GLUCOSE; Start 02/05/17 at 18: 30 Glucose 15 gm 15 gm Q15M PRN BUCCAL DECREASED GLUCOSE; Start 02/05/17 at 18:30 Potassium Chloride/Sodium Chloride (NS-KCl 20 Meq) 1,000 ml @ 60 mls/hr [id number] IV Last administered on 02/17/17 09:20; Admin Dose 60 MLS/HR; Start 02/07/17 at 16:00 Magnesium Hydroxide (Milk Of Mag) 30 ml Q6H PRN PO CONSTIPATION; Start at 23:00 Dexamethasone (Decadron) 4 mg Q6 IV Last administered on 02/17/17 05:24; Admin Dose 4 MG; Start 02/13/17 at 06:00 Levetiracetam (Keppra) 500 mg BID PO Last administered on 02/17/17 08:33; Admin Dose 500 MG; Start 02/13/17 at 09:00 Pregabalin (Lyrica) 150 mg BID NGT Last administered on 02/17/17 08:36; Admin Dose 150 MG; Start 02/13/17 at 09:00 Levofloxacin (Levaquin) 500 mg DAILY@06 PO Last administered on 02/17/17 05:24 ; Admin Dose 500 MG; Start 02/15/17 at 15:00 Meclizine HCl (Antivert) 25 mg TID PO Last administered on 02/17/17 08:35; Admin Dose 25 MG; Start 02/17/17 at 09:00 MATHIEU WALSH Feb 17, 2017 11:51
[2017-02-17] MEDS ORDERED: POLYETHYLENE GLYCOL 17 GM PACKET PO ONE (12:00)
--- NOTE | 2017-02-17 14:18 | CONS ---
Date/Time of Note Date/Time of Note DATE: 02/17/17 TIME: 14:16 Assessment/Plan Assessment/Plan Chief Complaint/Hosp Course IMp: 1.Chest pain-negatve trop x 3/NL EF by echo this admit/Lexiscan with no ischemia NL EF 2.HTN 3.UTI 4.abnl ecg 5. fevers 6.DM 7.Ovarian ca with possible cerebral mets 8. Dylslipidemia Recc: -Now on med/surg -serial ecg's -continue BB -contineu asa -continue statin -Continue abx's and f/u cx data -pnding initiation of CTX agents held due to ongoing UTI Problems: Consultation Date/Type/Reason Admit Date/Time Feb 04, 2017 at 00:40 Initial Consult Date 02/09/17 Type of Consultation: cardiology Reason for Consultation chest pain Referring Provider: COBY KRAMER MD Exam/Review of Systems Vital Signs Vitals Vital Signs Date Time Temp Pulse Resp B/P Pulse Ox O2 Delivery O2 Flow Rate FiO2 02/17/17 08:03 98.2 64 16 160/66 96 Intake and Output 02/16/17 02/16/17 02/17/17 15:00 23:00 07:00 Intake Total 500 ml 1200 ml 940 ml Balance 500 ml 1200 ml 940 ml Exam Review of Systems: CONSTITUTIONAL: No fevers, chills. PULMONARY: No sob CARDIOVASCULAR: No chest pain/palpitations GASTROINTESTINAL: No nausea/vomiting. GENITOURINARY: No hematuria/dysuria. MUSCULOSKELETAL: No myagias/arthalgias. PSYCHIATRIC: The patient denies depression. NEUROLOGIC: No weakness Constitutional: alert Psych: no complaints Head: normocephalic ENMT: mucosa pink and moist Neck: jvd (9 cm water), supple Respiratory: diminished breath sounds Cardiovascular: regular rate and rhythm Gastrointestinal: non-tender, soft Musculoskeletal: muscle tone (normal) Extremities: edema (none) Neurological: other (No focal defcits) Results Result Diagram: 02/17/17 0525 02/17/17 0525 Results 24 hrs Laboratory Tests Test 02/16/17 20:59 02/17/17 05:25 02/17/17 08:13 02/17/17 12:11 Bedside Glucose 175 169 180 White Blood Count 10.1 # Red Blood Count 4.01 L Hemoglobin 10.9 L Hematocrit 32.6 L Mean Corpuscular Volume 81.3 L Mean Corpuscular Hemoglobin 27.2 L Mean Corpuscular Hemoglobin Concent 33.4 Red Cell Distribution Width 13.7 Platelet Count 624 H Mean Platelet Volume 9.3 Neutrophils % 79.0 H Lymphocytes % 12.8 L Monocytes % 5.0 Eosinophils % 0.0 Basophils % 0.1 Nucleated Red Blood Cells % 0.2 H Neutrophils # 8.0 H Lymphocytes # 1.3 Monocytes # 0.5 Eosinophils # 0.0 Basophils # 0.0 Nucleated Red Blood Cells # 0.0 Sodium Level 139 Potassium Level 4.1 Chloride Level 104 Carbon Dioxide Level 24 Anion Gap 15 Blood Urea Nitrogen 25 H Creatinine 0.65 Glucose Level 176 Calcium Level 9.1 Magnesium Level 2.0 Medications Medications Current Medications Nitroglycerin (Nitroglycerin (Sl Tab) 0.4 Mg) 1 tab Q5M PRN SL ANGINA; Start 02/04/17 at 03:30 Metoprolol Tartrate (Lopressor) 25 mg BID PO Last administered on 02/17/17 08: 34; Admin Dose 25 MG; Start 02/04/17 at 09:00 Enoxaparin Sodium (Lovenox) 40 mg DAILY SC Last administered on 02/17/17 08:37 ; Admin Dose 40 MG; Start 02/04/17 at 09:00 Acetaminophen (Tylenol Tab) 650 mg Q4H PRN PO PAIN AND OR ELEVATED TEMP Last administered on 02/15/17 13:47; Admin Dose 650 MG; Start 02/04/17 at 03:30 Hydromorphone HCl (Dilaudid) 1 mg Q3H PRN IV PAIN LEVEL 8-10 Last administered on 02/16/17 21:08; Admin Dose 1 MG; Start 02/04/17 at 03:30 Ondansetron HCl (Zofran Inj) 4 mg Q4H PRN IV NAUSEA AND/OR VOMITING Last administered on 02/11/17 01:16; Admin Dose 4 MG; Start 02/04/17 at 03:30 Pantoprazole (Protonix Tab) 40 mg DAILY@06 PO Last administered on 02/17/17 05 :24; Admin Dose 40 MG; Start 02/04/17 at 06:00 Aspirin (Aspirin) 325 mg DAILY PO Last administered on 02/17/17 08:33; Admin Dose 325 MG; Start 02/04/17 at 09:00 Atorvastatin Calcium (Lipitor) 20 mg QHS PO Last administered on 02/16/17 21: 00; Admin Dose 20 MG; Start 02/05/17 at 21:00 Docusate Sodium (Colace) 100 mg BID PO Last administered on 02/17/17 08:34; Admin Dose 100 MG; Start 02/05/17 at 00:00 Lisinopril (Zestril) 5 mg DAILY PO Last administered on 02/17/17 09:58; Admin Dose 5 MG; Start 02/05/17 at 09:00 Diagnostic Test (Pha) (Accu-Chek) 1 ea 02 XX Last administered on 02/15/17 02: 27; Admin Dose 1 EA; Start 02/06/17 at 02:00 Miscellaneous Information 1 ea NOTE XX ; Start 02/05/17 at 18:30 Glucose (Glutose) 15 gm Q15M PRN PO DECREASED GLUCOSE; Start 02/05/17 at 18:30 Glucose (Glutose) 22.5 gm Q15M PRN PO DECREASED GLUCOSE; Start 02/05/17 at 18: 30 Dextrose (D50w Syringe) 25 ml Q15M PRN IV DECREASED GLUCOSE; Start 02/05/17 at 18:30 Dextrose (D50w Syringe) 50 ml Q15M PRN IV DECREASED GLUCOSE; Start 02/05/17 at 18:30 Glucagon (Glucagen) 1 mg Q15M PRN IM DECREASED GLUCOSE; Start 02/05/17 at 18: 30 Glucose 15 gm 15 gm Q15M PRN BUCCAL DECREASED GLUCOSE; Start 02/05/17 at 18:30 Potassium Chloride/Sodium Chloride (NS-KCl 20 Meq) 1,000 ml @ 60 mls/hr [id number] IV Last administered on 02/17/17 09:20; Admin Dose 60 MLS/HR; Start 02/07/17 at 16:00 Magnesium Hydroxide (Milk Of Mag) 30 ml Q6H PRN PO CONSTIPATION; Start at 23:00 Dexamethasone (Decadron) 4 mg Q6 IV Last administered on 02/17/17 12:44; Admin Dose 4 MG; Start 02/13/17 at 06:00 Levetiracetam (Keppra) 500 mg BID PO Last administered on 02/17/17 08:33; Admin Dose 500 MG; Start 02/13/17 at 09:00 Pregabalin (Lyrica) 150 mg BID NGT Last administered on 02/17/17 08:36; Admin Dose 150 MG; Start 02/13/17 at 09:00 Levofloxacin (Levaquin) 500 mg DAILY@06 PO Last administered on 02/17/17 05:24 ; Admin Dose 500 MG; Start 02/15/17 at 15:00 Meclizine HCl (Antivert) 25 mg TID PO Last administered on 02/17/17 12:29; Admin Dose 25 MG; Start 02/17/17 at 09:00 Docusate Sodium (Colace) 100 mg BID PO Last administered on 02/17/17 12:44; Admin Dose 100 MG; Start 02/17/17 at 12:00 Polyethylene Glycol (Miralax) 17 gm DAILY PRN NGT CONSTIPATION; Start 02/17/17 at 12:00 CHRIS FINK Feb 17, 2017 14:18
[2017-02-17 15:02] VITALS: BP 119/56; RESP 18
[2017-02-17] MEDS: HYDROmorphONE 0.5 MG/0.5 ML SYG IV PRN ×2 (17:00→23:18)
[2017-02-17 20:05] VITALS: BP 106/54; RESP 18
[2017-02-17] MEDS: ATORVASTATIN 20 MG TAB PO SCH (20:31)
--- NOTE | 2017-02-17 21:20 | PN ---
Date/Time of Note Date/Time of Note DATE: 02/17/17 TIME: 21:03 Assessment/Plan VTE Prophylaxis VTE Prophylaxis Intervention: LMWH Lines/Catheters IV [facility] Type [facility]from [facility] port a cath Urinary Cath still in place: No Assessment/Plan Chief Complaint/Hosp Course Ovarian ca, DM Problems: Assessment/Plan A/P- per her extensive questions discussed that she can be considered recurrent vs persistent based on time but new issue of consistent brain/central metastatic disease and emphasized that as I agree localized creative RT and other with [place] although not likely or planned to cure; would benefit and improve symptoms and increase survival. She indicated better understood and appreciated. Subjective 24 Hr Interval Summary Free Text/Dictation Feels about the same, less pain and some impvt in vertigo. Exam/Review of Systems Vital Signs Vitals Vital Signs Date Time Temp Pulse Resp B/P Pulse Ox O2 Delivery O2 Flow Rate FiO2 02/17/17 20:05 97.9 71 18 106/54 94 Intake and Output 02/16/17 02/16/17 02/17/17 15:00 23:00 07:00 Intake Total 500 ml 1200 ml 940 ml Balance 500 ml 1200 ml 940 ml Exam Resp- clear CVS-NSR Abd- Soft and minimally tender Ext NT minimally edema Neuro: ongoing vertigo Results Result Diagram: 02/17/1725 02/17/17 0525 Results 24 hrs Laboratory Tests Test 02/17/17 05:25 02/17/17 08:13 02/17/17 12:11 02/17/17 16:59 White Blood Count 10.1 # Red Blood Count 4.01 L Hemoglobin 10.9 L Hematocrit 32.6 L Mean Corpuscular Volume 81.3 L Mean Corpuscular Hemoglobin 27.2 L Mean Corpuscular Hemoglobin Concent 33.4 Red Cell Distribution Width 13.7 Platelet Count 624 H Mean Platelet Volume 9.3 Neutrophils % 79.0 H Lymphocytes % 12.8 L Monocytes % 5.0 Eosinophils % 0.0 Basophils % 0.1 Nucleated Red Blood Cells % 0.2 H Neutrophils # 8.0 H Lymphocytes # 1.3 Monocytes # 0.5 Eosinophils # 0.0 Basophils # 0.0 Nucleated Red Blood Cells # 0.0 Sodium Level 139 Potassium Level 4.1 Chloride Level 104 Carbon Dioxide Level 24 Anion Gap 15 Blood Urea Nitrogen 25 H Creatinine 0.65 Glucose Level 176 Calcium Level 9.1 Magnesium Level 2.0 Bedside Glucose 169 180 206 Test 02/17/17 20:35 Bedside Glucose 264 H Medications Medications Current Medications Nitroglycerin (Nitroglycerin (Sl Tab) 0.4 Mg) 1 tab Q5M PRN SL ANGINA; Start 02/04/17 at 03:30 Metoprolol Tartrate (Lopressor) 25 mg BID PO Last administered on 02/17/17 08: 34; Admin Dose 25 MG; Start 02/04/17 at 09:00 Enoxaparin Sodium (Lovenox) 40 mg DAILY SC Last administered on 02/17/17 08:37 ; Admin Dose 40 MG; Start 02/04/17 at 09:00 Acetaminophen (Tylenol Tab) 650 mg Q4H PRN PO PAIN AND OR ELEVATED TEMP Last administered on 02/15/17 13:47; Admin Dose 650 MG; Start 02/04/17 at 03:30 Hydromorphone HCl (Dilaudid) 1 mg Q3H PRN IV PAIN LEVEL 8-10 Last administered on 02/17/17 17:00; Admin Dose 1 MG; Start 02/04/17 at 03:30 Ondansetron HCl (Zofran Inj) 4 mg Q4H PRN IV NAUSEA AND/OR VOMITING Last administered on 02/11/17 01:16; Admin Dose 4 MG; Start 02/04/17 at 03:30 Pantoprazole (Protonix Tab) 40 mg DAILY@06 PO Last administered on 02/17/17 05 :24; Admin Dose 40 MG; Start 02/04/17 at 06:00 Aspirin (Aspirin) 325 mg DAILY PO Last administered on 02/17/17 08:33; Admin Dose 325 MG; Start 02/04/17 at 09:00 Atorvastatin Calcium (Lipitor) 20 mg QHS PO Last administered on 02/17/17 20: 31; Admin Dose 20 MG; Start 02/05/17 at 21:00 Docusate Sodium (Colace) 100 mg BID PO Last administered on 02/17/17 20:32; Admin Dose 100 MG; Start 02/05/17 at 00:00 Lisinopril (Zestril) 5 mg DAILY PO Last administered on 02/17/17 09:58; Admin Dose 5 MG; Start 02/05/17 at 09:00 Diagnostic Test (Pha) (Accu-Chek) 1 ea 02 XX Last administered on 02/15/17 02: 27; Admin Dose 1 EA; Start 02/06/17 at 02:00 Miscellaneous Information 1 ea NOTE XX ; Start 02/05/17 at 18:30 Glucose (Glutose) 15 gm Q15M PRN PO DECREASED GLUCOSE; Start 02/05/17 at 18:30 Glucose (Glutose) 22.5 gm Q15M PRN PO DECREASED GLUCOSE; Start 02/05/17 at 18: 30 Dextrose (D50w Syringe) 25 ml Q15M PRN IV DECREASED GLUCOSE; Start 02/05/17 at 18:30 Dextrose (D50w Syringe) 50 ml Q15M PRN IV DECREASED GLUCOSE; Start 02/05/17 at 18:30 Glucagon (Glucagen) 1 mg Q15M PRN IM DECREASED GLUCOSE; Start 02/05/17 at 18: 30 Glucose 15 gm 15 gm Q15M PRN BUCCAL DECREASED GLUCOSE; Start 02/05/17 at 18:30 Potassium Chloride/Sodium Chloride (NS-KCl 20 Meq) 1,000 ml @ 60 mls/hr [id number] IV Last administered on 02/17/17 09:20; Admin Dose 60 MLS/HR; Start 02/07/17 at 16:00 Magnesium Hydroxide (Milk Of Mag) 30 ml Q6H PRN PO CONSTIPATION; Start at 23:00 Dexamethasone (Decadron) 4 mg Q6 IV Last administered on 02/17/17 17:00; Admin Dose 4 MG; Start 02/13/17 at 06:00 Levetiracetam (Keppra) 500 mg BID PO Last administered on 02/17/17 20:32; Admin Dose 500 MG; Start 02/13/17 at 09:00 Pregabalin (Lyrica) 150 mg BID NGT Last administered on 02/17/17 20:32; Admin Dose 150 MG; Start 02/13/17 at 09:00 Levofloxacin (Levaquin) 500 mg DAILY@06 PO Last administered on 02/17/17 05:24 ; Admin Dose 500 MG; Start 02/15/17 at 15:00 Meclizine HCl (Antivert) 25 mg TID PO Last administered on 02/17/17 20:31; Admin Dose 25 MG; Start 02/17/17 at 09:00 Docusate Sodium (Colace) 100 mg BID PO Last administered on 02/17/17 20:32; Admin Dose 100 MG; Start 02/17/17 at 12:00 Polyethylene Glycol (Miralax) 17 gm DAILY PRN NGT CONSTIPATION; Start 02/17/17 at 12:00 JEFF PALOMINO MD Feb 17, 2017 21:19
[2017-02-18] MEDS: NS + KCL 20 MEQ 1,000 ML IV SCH ×3 (01:52→17:41)
[2017-02-18] MEDS: ACCU-CHEK XX SCH (01:53)
[2017-02-18 02:48] VITALS: BP 132/63; RESP 20
[2017-02-18] MEDS: DEXAMETHASONE 4 MG/ML 1 ML INJ IV SCH ×3 (05:26→17:33)
[2017-02-18] MEDS: LEVOFLOXACIN 500 MG TAB PO SCH (05:26)
[2017-02-18] MEDS: PANTOPRAZOLE (EC) 40 MG TAB PO SCH (05:26)
[2017-02-18 06:02] LABS: WHITE BLOOD COUNT 10.2 10^3/ul (4.8-10.8)
[2017-02-18 06:03] LABS: BASOPHILS % 0.2 % (0.0-2.0); HEMATOCRIT 32.5 % (37.0-47.0); HEMOGLOBIN 10.9 g/dl (12.0-16.0); LYMPHOCYTES # 1.4 10^3/ul (0.8-2.9); LYMPHOCYTES % 13.7 % (15.0-51.0); MEAN CORPUSCULAR HEMOGLOBIN 27.3 pg (29.0-33.0); MEAN CORPUSCULAR HGB CONC 33.5 g/dl (32.0-37.0); MEAN CORPUSCULAR VOLUME 81.5 fl (82.0-101.0); MEAN PLATELET VOLUME 9.1 fl (7.4-10.4); MONOCYTE # 0.6 10^3/ul (0.3-0.9); MONOCYTES % 5.5 % (0.0-11.0); NEUTROPHILS % 77.7 % (39.0-77.0); PLATELET COUNT 601 10^3/UL (140-415); RED BLOOD COUNT 3.99 10^6/ul (4.20-5.40); RED CELL DISTRIBUTION WIDTH 14.1 % (11.5-14.5)
[2017-02-18 06:48] LABS: CALCIUM 8.7 mg/dl (8.4-10.2); CREATININE 0.58 mg/dl (0.44-1.00); POTASSIUM 4.4 mmol/L (3.5-5.1)
[2017-02-18 07:25] VITALS: BP 134/60; PULSE 62; RESP 16
[2017-02-18] MEDS: INSULIN ASPART [NOVOLOG] 3 ML PEN SC SCH ×4 (08:18→21:13)
[2017-02-18 08:24] VITALS: BP 134/60; RESP 16
[2017-02-18] MEDS: DOCUSATE SODIUM 100 MG CAP PO SCH ×3 (09:00→20:50)
[2017-02-18] MEDS: ENOXAPARIN 40 MG/0.4 ML SYG SC SCH (09:57)
[2017-02-18] MEDS: ASPIRIN 325 MG TAB PO SCH (10:08)
[2017-02-18] MEDS: MECLIZINE 25 MG TAB PO SCH ×3 (10:08→20:50)
[2017-02-18] MEDS: LEVETIRACETAM 500 MG TAB PO SCH ×2 (10:11→20:48)
[2017-02-18] MEDS: METOPROLOL 25 MG TAB PO SCH ×2 (10:11→20:50)
[2017-02-18] MEDS: LISINOPRIL 5 MG TAB PO SCH (10:11)
[2017-02-18] MEDS: PREGABALIN 75 MG CAP NGT SCH ×2 (10:28→20:48)
--- NOTE | 2017-02-18 14:00 | CONS ---
Date/Time of Note Date/Time of Note DATE: 02/18/17 TIME: 13:58 Assessment/Plan Assessment/Plan Chief Complaint/Hosp Course IMp: 1.Chest pain-negatve trop x 3/NL EF by echo this admit/Lexiscan with no ischemia NL EF 2.HTN 3.UTI 4.abnl ecg 5. fevers 6.DM 7.Ovarian ca with possible cerebral mets 8. Dylslipidemia Recc: -Now on med/surg -serial ecg's -continue BB -contineu asa -continue statin -Continue abx's and f/u cx data -pnding initiation of CTX agents held due to ongoing UTI Problems: Consultation Date/Type/Reason Admit Date/Time Feb 04, 2017 at 00:40 Initial Consult Date 02/09/17 Type of Consultation: cardiology Reason for Consultation chest pain Referring Provider: COBY KRAMER MD Exam/Review of Systems Vital Signs Vitals Vital Signs Date Time Temp Pulse Resp B/P Pulse Ox O2 Delivery O2 Flow Rate FiO2 02/18/17 08:24 98.5 62 16 134/60 94 02/18/17 07:25 Room Air Intake and Output 02/17/17 02/17/17 02/18/17 15:00 23:00 07:00 Intake Total 300 ml 1800 ml 900 ml Balance 300 ml 1800 ml 900 ml Exam Review of Systems: CONSTITUTIONAL: No fevers, chills. PULMONARY: No sob CARDIOVASCULAR: No chest pain/palpitations GASTROINTESTINAL: No nausea/vomiting. GENITOURINARY: No hematuria/dysuria. MUSCULOSKELETAL: No myagias/arthalgias. PSYCHIATRIC: The patient denies depression. NEUROLOGIC: No weakness Constitutional: alert, oriented Psych: no complaints Head: normocephalic ENMT: mucosa pink and moist Neck: jvd (9 cm water), supple Respiratory: diminished breath sounds (at bases/B) Cardiovascular: regular rate and rhythm Gastrointestinal: non-tender, soft Musculoskeletal: muscle tone (normal) Extremities: edema (none) Neurological: other (No focal deficits) Results Result Diagram: 02/18/17 0539 02/18/17 0539 Results 24 hrs Laboratory Tests Test 02/17/17 16:59 02/17/17 20:35 02/18/17 01:50 02/18/17 05:39 Bedside Glucose 206 264 H 207 White Blood Count 10.2 Red Blood Count 3.99 L Hemoglobin 10.9 L Hematocrit 32.5 L Mean Corpuscular Volume 81.5 L Mean Corpuscular Hemoglobin 27.3 L Mean Corpuscular Hemoglobin Concent 33.5 Red Cell Distribution Width 14.1 Platelet Count 601 H Mean Platelet Volume 9.1 Neutrophils % 77.7 H Lymphocytes % 13.7 L Monocytes % 5.5 Eosinophils % 0.0 Basophils % 0.2 Nucleated Red Blood Cells % 0.0 Neutrophils # 8.0 H Lymphocytes # 1.4 Monocytes # 0.6 Eosinophils # 0.0 Basophils # 0.0 Nucleated Red Blood Cells # 0.0 Sodium Level 139 Potassium Level 4.4 Chloride Level 105 Carbon Dioxide Level 23 Anion Gap 15 Blood Urea Nitrogen 23 H Creatinine 0.58 Glucose Level 192 Calcium Level 8.7 Test 02/18/17 08:11 02/18/17 12:19 Bedside Glucose 170 193 Medications Medications Current Medications Nitroglycerin (Nitroglycerin (Sl Tab) 0.4 Mg) 1 tab Q5M PRN SL ANGINA; Start 02/04/17 at 03:30 Metoprolol Tartrate (Lopressor) 25 mg BID PO Last administered on 02/18/17 10: 11; Admin Dose 25 MG; Start 02/04/17 at 09:00 Enoxaparin Sodium (Lovenox) 40 mg DAILY SC Last administered on 02/18/17 09:57 ; Admin Dose 40 MG; Start 02/04/17 at 09:00 Acetaminophen (Tylenol Tab) 650 mg Q4H PRN PO PAIN AND OR ELEVATED TEMP Last administered on 02/15/17 13:47; Admin Dose 650 MG; Start 02/04/17 at 03:30 Hydromorphone HCl (Dilaudid) 1 mg Q3H PRN IV PAIN LEVEL 8-10 Last administered on 02/17/17 23:18; Admin Dose 1 MG; Start 02/04/17 at 03:30 Ondansetron HCl (Zofran Inj) 4 mg Q4H PRN IV NAUSEA AND/OR VOMITING Last administered on 02/11/17 01:16; Admin Dose 4 MG; Start 02/04/17 at 03:30 Pantoprazole (Protonix Tab) 40 mg DAILY@06 PO Last administered on 02/18/17 05 :26; Admin Dose 40 MG; Start 02/04/17 at 06:00 Aspirin (Aspirin) 325 mg DAILY PO Last administered on 02/18/17 10:08; Admin Dose 325 MG; Start 02/04/17 at 09:00 Atorvastatin Calcium (Lipitor) 20 mg QHS PO Last administered on 02/17/17 20: 31; Admin Dose 20 MG; Start 02/05/17 at 21:00 Docusate Sodium (Colace) 100 mg BID PO Last administered on 02/18/17 10:09; Admin Dose 100 MG; Start 02/05/17 at 00:00 Lisinopril (Zestril) 5 mg DAILY PO Last administered on 02/18/17 10:11; Admin Dose 5 MG; Start 02/05/17 at 09:00 Diagnostic Test (Pha) (Accu-Chek) 1 ea 02 XX Last administered on 02/15/17 02: 27; Admin Dose 1 EA; Start 02/06/17 at 02:00 Miscellaneous Information 1 ea NOTE XX ; Start 02/05/17 at 18:30 Glucose (Glutose) 15 gm Q15M PRN PO DECREASED GLUCOSE; Start 02/05/17 at 18:30 Glucose (Glutose) 22.5 gm Q15M PRN PO DECREASED GLUCOSE; Start 02/05/17 at 18: 30 Dextrose (D50w Syringe) 25 ml Q15M PRN IV DECREASED GLUCOSE; Start 02/05/17 at 18:30 Dextrose (D50w Syringe) 50 ml Q15M PRN IV DECREASED GLUCOSE; Start 02/05/17 at 18:30 Glucagon (Glucagen) 1 mg Q15M PRN IM DECREASED GLUCOSE; Start 02/05/17 at 18: 30 Glucose 15 gm 15 gm Q15M PRN BUCCAL DECREASED GLUCOSE; Start 02/05/17 at 18:30 Potassium Chloride/Sodium Chloride (NS-KCl 20 Meq) 1,000 ml @ 60 mls/hr [id number] IV Last administered on 02/18/17 01:52; Admin Dose 60 MLS/HR; Start 02/07/17 at 16:00 Magnesium Hydroxide (Milk Of Mag) 30 ml Q6H PRN PO CONSTIPATION; Start at 23:00 Dexamethasone (Decadron) 4 mg Q6 IV Last administered on 02/18/17 12:23; Admin Dose 4 MG; Start 02/13/17 at 06:00 Levetiracetam (Keppra) 500 mg BID PO Last administered on 02/18/17 10:11; Admin Dose 500 MG; Start 02/13/17 at 09:00 Pregabalin (Lyrica) 150 mg BID NGT Last administered on 02/18/17 10:28; Admin Dose 150 MG; Start 02/13/17 at 09:00 Levofloxacin (Levaquin) 500 mg DAILY@06 PO Last administered on 02/18/17 05:26 ; Admin Dose 500 MG; Start 02/15/17 at 15:00 Meclizine HCl (Antivert) 25 mg TID PO Last administered on 02/18/17 12:23; Admin Dose 25 MG; Start 02/17/17 at 09:00 Polyethylene Glycol (Miralax) 17 gm DAILY PRN NGT CONSTIPATION; Start 02/17/17 at 12:00 CHRIS FINK Feb 18, 2017 14:00
[2017-02-18] MEDS: HYDROmorphONE 0.5 MG/0.5 ML SYG IV PRN ×2 (14:52→21:17)
[2017-02-18 15:47] VITALS: BP 107/54; RESP 20
--- NOTE | 2017-02-18 18:54 | PN ---
DATE: 02/18/2017 SUBJECTIVE: Patient continues to experience dizziness. She states this is again slightly improved, but it does occur anytime she moves. Also continues to complain of headache. The headache is gene ralized, not associated with any diplopia or other visual disturbances. OBJECTIVE: GENERAL: The patient is a well-developed, well-nourished female in no acute distress. VITAL SIGNS: Temperature 98.2, pulse 58 per minute and regular, respirations 20, blood pressure 107 /54, pulse oximetry 93% on room air. SKIN: No ecchymosis, no petechiae or rashes. HEENT: No mucosal lesions. No scleral icterus. Extraocular movements are intact. There is no nys tagmus. NECK: Supple, no jugular venous distention or thyroid enlargement. CHEST: Clear to auscultation and percussion. No rhonchi, wheezes, rales or rubs. There is a Port- A-Cath reservoir in the right anterior chest, which has been accessed. NODES: No pallor lymphadenopathy. HEART: Regular sinus rhythm, no S3, S4 or murmurs. No rubs. ABDOMEN: Mildly distended but soft. There are no masses or ascites at this time. EXTREMITIES: No clubbing. No edema or cyanosis. No palpable cords or Homans sign. NEUROLOGIC: Does not reveal any focal neurologic abnormalities. DIAGNOSTIC DATA: White count 10,200 with an absolute neutrophil count of 8000, hemoglobin 10.9, hem atocrit 32.5 and platelet count 601,000. Sodium 132, potassium 4.4, BUN 23, creatinine 0.58. ASSESSMENT: 1. Recurrent ovarian carcinoma. 2. Possible cerebral metastases secondary to #1. 3. Diabetes mellitus. It is unclear, but the patient may be scheduled for transportation to another facility in order to u ndergo an MRI and possible biopsy. As noted by Dr. Hayes, the patient should benefit from both systemic chemotherapy with carboplati n and gemcitabine as well as a localized radiation therapy to the possible cerebral metastases. Dictated By: DAVID MESA MD, SR/RADHA Conf#: [id number] DID#: [id number]
--- NOTE | 2017-02-18 19:04 | PN ---
Date/Time of Note Date/Time of Note DATE: 02/18/17 TIME: 19:01 Assessment/Plan VTE Prophylaxis VTE Prophylaxis Intervention: other Lines/Catheters [facility] C[facility] Type (from [facility] Port-a-cath Urinary Cath still in place: No Assessment/Plan Assessment/Plan -UTI, continue Levaquin. - Chest pain, rule out acute coronary syndrome. CTA is negative for PE. Dr Lucero in following in cardiology consultation. - Recurrent/persistent ovarian cancer, status post secondary cytoreduction surgery by Dr Hayes. Dr. Bang is following in oncology consultation. - Possible cerebral metastases. Continue steroids. - DM with hemoglobin A1c 6.3. Continue NovoLog per mild algorithm sliding scale. - Possible seizures, continue Keppra - Vertigo, continue Meclizine. Further recommendations based on clinical course. Plan of care discussed with Dr. Phelps. Subjective 24 Hr Interval Summary Free Text/Dictation c/o dizziness, afebrile, scheduled for Brain scan at 5 pm at [facility]. dw staff Respiratory: no complaints Cardiovascular: no complaints Gastrointestinal: pain Genitourinary: no complaints Musculoskeletal: no complaints Neurologic: dizziness Exam/Review of Systems Vital Signs Vitals Vital Signs Date Time Temp Pulse Resp B/P Pulse Ox O2 Delivery O2 Flow Rate FiO2 02/18/17 15:47 98.2 58 20 107/54 93 02/18/17 07:25 Room Air Intake and Output 02/17/17 02/17/17 02/18/17 15:00 23:00 07:00 Intake Total 300 ml 1800 ml 900 ml Balance 300 ml 1800 ml 900 ml Exam Constitutional: alert, oriented Respiratory: diminished breath sounds, normal air movement Cardiovascular: nl pulses, other (s1s2) Gastrointestinal: non-tender, soft Musculoskeletal: nl extremities to inspection Extremities: normal pulses Neurological: nl mental status, nl speech Results Result Diagram: 02/18/17 0539 02/18/17 0539 Results 24 hrs Laboratory Tests Test 02/17/17 20:35 02/18/17 01:50 02/18/17 05:39 02/18/17 08:11 Bedside Glucose 264 H 207 170 White Blood Count 10.2 Red Blood Count 3.99 L Hemoglobin 10.9 L Hematocrit 32.5 L Mean Corpuscular Volume 81.5 L Mean Corpuscular Hemoglobin 27.3 L Mean Corpuscular Hemoglobin Concent 33.5 Red Cell Distribution Width 14.1 Platelet Count 601 H Mean Platelet Volume 9.1 Neutrophils % 77.7 H Lymphocytes % 13.7 L Monocytes % 5.5 Eosinophils % 0.0 Basophils % 0.2 Nucleated Red Blood Cells % 0.0 Neutrophils # 8.0 H Lymphocytes # 1.4 Monocytes # 0.6 Eosinophils # 0.0 Basophils # 0.0 Nucleated Red Blood Cells # 0.0 Sodium Level 139 Potassium Level 4.4 Chloride Level 105 Carbon Dioxide Level 23 Anion Gap 15 Blood Urea Nitrogen 23 H Creatinine 0.58 Glucose Level 192 Calcium Level 8.7 Test 02/18/17 12:19 02/18/17 17:28 Bedside Glucose 193 196 Medications Medications Current Medications Nitroglycerin (Nitroglycerin (Sl Tab) 0.4 Mg) 1 tab Q5M PRN SL ANGINA; Start 02/04/17 at 03:30 Metoprolol Tartrate (Lopressor) 25 mg BID PO Last administered on 02/18/17 10: 11; Admin Dose 25 MG; Start 02/04/17 at 09:00 Enoxaparin Sodium (Lovenox) 40 mg DAILY SC Last administered on 02/18/17 09:57 ; Admin Dose 40 MG; Start 02/04/17 at 09:00 Acetaminophen (Tylenol Tab) 650 mg Q4H PRN PO PAIN AND OR ELEVATED TEMP Last administered on 02/15/17 13:47; Admin Dose 650 MG; Start 02/04/17 at 03:30 Hydromorphone HCl (Dilaudid) 1 mg Q3H PRN IV PAIN LEVEL 8-10 Last administered on 02/18/17 14:52; Admin Dose 1 MG; Start 02/04/17 at 03:30 Ondansetron HCl (Zofran Inj) 4 mg Q4H PRN IV NAUSEA AND/OR VOMITING Last administered on 02/11/17 01:16; Admin Dose 4 MG; Start 02/04/17 at 03:30 Pantoprazole (Protonix Tab) 40 mg DAILY@06 PO Last administered on 02/18/17 05 :26; Admin Dose 40 MG; Start 02/04/17 at 06:00 Aspirin (Aspirin) 325 mg DAILY PO Last administered on 02/18/17 10:08; Admin Dose 325 MG; Start 02/04/17 at 09:00 Atorvastatin Calcium (Lipitor) 20 mg QHS PO Last administered on 02/17/17 20: 31; Admin Dose 20 MG; Start 02/05/17 at 21:00 Docusate Sodium (Colace) 100 mg BID PO Last administered on 02/18/17 10:09; Admin Dose 100 MG; Start 02/05/17 at 00:00 Lisinopril (Zestril) 5 mg DAILY PO Last administered on 02/18/17 10:11; Admin Dose 5 MG; Start 02/05/17 at 09:00 Diagnostic Test (Pha) (Accu-Chek) 1 ea 02 XX Last administered on 02/15/17 02: 27; Admin Dose 1 EA; Start 02/06/17 at 02:00 Miscellaneous Information 1 ea NOTE XX ; Start 02/05/17 at 18:30 Glucose (Glutose) 15 gm Q15M PRN PO DECREASED GLUCOSE; Start 02/05/17 at 18:30 Glucose (Glutose) 22.5 gm Q15M PRN PO DECREASED GLUCOSE; Start 02/05/17 at 18: 30 Dextrose (D50w Syringe) 25 ml Q15M PRN IV DECREASED GLUCOSE; Start 02/05/17 at 18:30 Dextrose (D50w Syringe) 50 ml Q15M PRN IV DECREASED GLUCOSE; Start 02/05/17 at 18:30 Glucagon (Glucagen) 1 mg Q15M PRN IM DECREASED GLUCOSE; Start 02/05/17 at 18: 30 Glucose 15 gm 15 gm Q15M PRN BUCCAL DECREASED GLUCOSE; Start 02/05/17 at 18:30 Potassium Chloride/Sodium Chloride (NS-KCl 20 Meq) 1,000 ml @ 60 mls/hr [id number] IV Last administered on 02/18/17 16:53; Admin Dose 60 MLS/HR; Start 02/07/17 at 16:00 Magnesium Hydroxide (Milk Of Mag) 30 ml Q6H PRN PO CONSTIPATION; Start at 23:00 Dexamethasone (Decadron) 4 mg Q6 IV Last administered on 02/18/17 17:33; Admin Dose 4 MG; Start 02/13/17 at 06:00 Levetiracetam (Keppra) 500 mg BID PO Last administered on 02/18/17 10:11; Admin Dose 500 MG; Start 02/13/17 at 09:00 Pregabalin (Lyrica) 150 mg BID NGT Last administered on 02/18/17 10:28; Admin Dose 150 MG; Start 02/13/17 at 09:00 Levofloxacin (Levaquin) 500 mg DAILY@06 PO Last administered on 02/18/17 05:26 ; Admin Dose 500 MG; Start 02/15/17 at 15:00 Meclizine HCl (Antivert) 25 mg TID PO Last administered on 02/18/17 12:23; Admin Dose 25 MG; Start 02/17/17 at 09:00 Polyethylene Glycol (Miralax) 17 gm DAILY PRN NGT CONSTIPATION; Start 02/17/17 at 12:00 YFN BRIAN Feb 18, 2017 19:04
[2017-02-18 19:16] VITALS: BP 109/56; PULSE 63; RESP 18
[2017-02-18] MEDS: ATORVASTATIN 20 MG TAB PO SCH (20:49)
[2017-02-19] MEDS: DEXAMETHASONE 4 MG/ML 1 ML INJ IV SCH ×4 (00:45→17:11)
[2017-02-19 02:14] VITALS: BP 126/61; RESP 16
[2017-02-19] MEDS: ACCU-CHEK XX SCH (02:58)
[2017-02-19] MEDS: HYDROmorphONE 0.5 MG/0.5 ML SYG IV PRN ×2 (03:12→20:48)
[2017-02-19] MEDS: LEVOFLOXACIN 500 MG TAB PO SCH (05:43)
[2017-02-19] MEDS: PANTOPRAZOLE (EC) 40 MG TAB PO SCH (05:43)
[2017-02-19 08:00] VITALS: BP 131/60; RESP 19
--- NOTE | 2017-02-19 08:31 | PN ---
DATE: 02/19/2017 SUBJECTIVE: Patient continues to say on a daily basis as she is improving slowly. Still, however, states that she has "dizziness" "when she turns her head from [id number]. Also, continues to comp sonu of diffuse, dull headache. The patient does not have diplopia or blurred vision. She has had no type of seizure activity. OBJECTIVE: GENERAL: The patient is a well-developed, well-nourished female in no acute distress. VITAL SIGNS: Temperature 98, pulse 56 per minute and regular, respirations 16, blood pressure 126/6 1 and pulse oximetry is 96% on room air. SKIN: No ecchymosis, no petechiae or rashes. HEENT: Normocephalic. No evidence of trauma. Pupils equal, round, react to light and accommodatio n. There is not noticed nystagmus. Oral mucosa is moist without lesions. NECK: Supple, no jugular venous distention or thyroid enlargement. No carotid bruits. CHEST: Clear to auscultation and percussion. No rhonchi, wheezes, rales or rubs. There is a Port- A-Cath which is accessed in the right anterior chest. HEART: Regular sinus rhythm, no S3, S4 or murmurs. No rubs. ABDOMEN: Soft, no masses, no ascites. Bowel sounds are active. EXTREMITIES: No clubbing. No edema or cyanosis. No palpable cords or Homans sign. NEUROLOGIC: Normal. There is no new laboratory or imaging. ASSESSMENT: 1. Recurrent ovarian carcinoma. 2. Probable cerebral metastases secondary to #1. 3. Diabetes mellitus. DISCUSSION: The patient apparently is to be transported to [facility] this afterno on for an MRI with spectroscopy to further delineate the cerebral lesion. Hopefully, this will clarify the abnormalities seen on MR and allow initiation of therapy, which usman l likely include both radiation and chemotherapy. Dictated By: DAVID MESA MD, SR/RADHA Conf#: [id number] DID#: [id number]
[2017-02-19] MEDS: INSULIN ASPART [NOVOLOG] 3 ML PEN SC SCH ×4 (08:40→22:19)
[2017-02-19] MEDS: LEVETIRACETAM 500 MG TAB PO SCH ×2 (08:56→20:47)
[2017-02-19] MEDS: PREGABALIN 75 MG CAP NGT SCH ×2 (08:56→20:47)
[2017-02-19] MEDS: DOCUSATE SODIUM 100 MG CAP PO SCH ×2 (08:56→20:47)
[2017-02-19] MEDS: ASPIRIN 325 MG TAB PO SCH (08:56)
[2017-02-19] MEDS: MECLIZINE 25 MG TAB PO SCH ×3 (08:56→20:47)
[2017-02-19] MEDS: METOPROLOL 25 MG TAB PO SCH ×2 (08:57→20:48)
[2017-02-19] MEDS: LISINOPRIL 5 MG TAB PO SCH (08:57)
[2017-02-19] MEDS: ENOXAPARIN 40 MG/0.4 ML SYG SC SCH (09:00)
[2017-02-19] MEDS: NS + KCL 20 MEQ 1,000 ML IV SCH (12:16)
--- NOTE | 2017-02-19 12:45 | CONS ---
Date/Time of Note Date/Time of Note DATE: 02/19/17 TIME: 12:43 Assessment/Plan Assessment/Plan Additional Assessment/Plan 1.Chest pain-negatve trop x 3/NL EF by echo this admit/Lexiscan with no ischemia NL EF - no intervention planned - NO CP now 2.HTN - well Rx, con't med Rx now - WELL CONTROLLED 3.UTI - on anti-bx - better now 4.abnl ecg - off tele now, no CP 5. fevers - no new episodes now 6.DM - on meds, will keep euglycemic 7.Ovarian ca - oncology follows 8. Dylslipidemia Consultation Date/Type/Reason Admit Date/Time Feb 04, 2017 at 00:40 Type of Consultation: cardiology Referring Provider: COBY KRAMER MD 24 HR Interval Summary Free Text/Dictation No acute events - BP stable - will monitor now ROS: No fever, no chills, no nausea, no vomiting, no diarrhea/constipation No recent weight changes No chest pain, no PND, no orthopnea No dizziness, blurred vision No thirst, no heat or cold intolerance Exam/Review of Systems Vital Signs Vitals Vital Signs Date Time Temp Pulse Resp B/P Pulse Ox O2 Delivery O2 Flow Rate FiO2 02/19/17 02:14 98.0 56 16 126/61 96 02/18/17 19:16 Room Air Intake and Output 02/18/17 02/18/17 02/19/17 15:00 23:00 07:00 Intake Total 2440 ml 1000 ml Output Total 1500 ml 700 ml Balance 940 ml 300 ml Exam General: WN/WD/NAD, AOx 3 HEENT: Unicetric/atraumatic/EOMI (follows commands) NECK: JVD elevated, no thyromegaly Lymph: no lymphadenopathy HEART: regular with no S3, II/ systolic murmur at apex LUNGS: Coarse sounds ABD: soft, NT, ND, +BS : Intact Neuro: non focal SKIN: chronic changes EXT: trace edema Results Result Diagram: 02/18/17 0539 02/18/17 0539 Results 24 hrs Laboratory Tests Test 02/18/17 17:28 02/18/17 20:55 02/19/17 02:57 02/19/17 07:42 Bedside Glucose 196 228 H 204 185 Test 02/19/17 12:08 Bedside Glucose 150 Medications Medications Current Medications Nitroglycerin (Nitroglycerin (Sl Tab) 0.4 Mg) 1 tab Q5M PRN SL ANGINA; Start 02/04/17 at 03:30 Metoprolol Tartrate (Lopressor) 25 mg BID PO Last administered on 02/19/17 08 :57; Admin Dose 25 MG; Start 02/04/17 at 09:00 Enoxaparin Sodium (Lovenox) 40 mg DAILY SC Last administered on 02/19/17 09: 00; Admin Dose 40 MG; Start 02/04/17 at 09:00 Acetaminophen (Tylenol Tab) 650 mg Q4H PRN PO PAIN AND OR ELEVATED TEMP Last administered on 02/15/17 13:47; Admin Dose 650 MG; Start 02/04/17 at 03:30 Hydromorphone HCl (Dilaudid) 1 mg Q3H PRN IV PAIN LEVEL 8-10 Last administered on 02/19/17 03:12; Admin Dose 1 MG; Start 02/04/17 at 03:30 Ondansetron HCl (Zofran Inj) 4 mg Q4H PRN IV NAUSEA AND/OR VOMITING Last administered on 02/11/17 01:16; Admin Dose 4 MG; Start 02/04/17 at 03:30 Pantoprazole (Protonix Tab) 40 mg DAILY@06 PO Last administered on 02/19/17 05:43; Admin Dose 40 MG; Start 02/04/17 at 06:00 Aspirin (Aspirin) 325 mg DAILY PO Last administered on 02/19/17 08:56; Admin Dose 325 MG; Start 02/04/17 at 09:00 Atorvastatin Calcium (Lipitor) 20 mg QHS PO Last administered on 02/18/17 20: 49; Admin Dose 20 MG; Start 02/05/17 at 21:00 Docusate Sodium (Colace) 100 mg BID PO Last administered on 02/19/17 08:56; Admin Dose 100 MG; Start 02/05/17 at 00:00 Lisinopril (Zestril) 5 mg DAILY PO Last administered on 02/19/17 08:57; Admin Dose 5 MG; Start 02/05/17 at 09:00 Diagnostic Test (Pha) (Accu-Chek) 1 ea 02 XX Last administered on 02/19/17 02 :58; Admin Dose 1 EA; Start 02/06/17 at 02:00 Miscellaneous Information 1 ea NOTE XX ; Start 02/05/17 at 18:30 Glucose (Glutose) 15 gm Q15M PRN PO DECREASED GLUCOSE; Start 02/05/17 at 18:30 Glucose (Glutose) 22.5 gm Q15M PRN PO DECREASED GLUCOSE; Start 02/05/17 at 18: 30 Dextrose (D50w Syringe) 25 ml Q15M PRN IV DECREASED GLUCOSE; Start 02/05/17 at 18:30 Dextrose (D50w Syringe) 50 ml Q15M PRN IV DECREASED GLUCOSE; Start 02/05/17 at 18:30 Glucagon (Glucagen) 1 mg Q15M PRN IM DECREASED GLUCOSE; Start 02/05/17 at 18: 30 Glucose 15 gm 15 gm Q15M PRN BUCCAL DECREASED GLUCOSE; Start 02/05/17 at 18:30 Potassium Chloride/Sodium Chloride (NS-KCl 20 Meq) 1,000 ml @ 60 mls/hr [id number] IV Last administered on 02/19/17 12:16; Admin Dose 60 MLS/HR; Start 02/07/17 at 16:00 Magnesium Hydroxide (Milk Of Mag) 30 ml Q6H PRN PO CONSTIPATION; Start at 23:00 Dexamethasone (Decadron) 4 mg Q6 IV Last administered on 02/19/17 12:16; Admin Dose 4 MG; Start 02/13/17 at 06:00 Levetiracetam (Keppra) 500 mg BID PO Last administered on 02/19/17 08:56; Admin Dose 500 MG; Start 02/13/17 at 09:00 Pregabalin (Lyrica) 150 mg BID NGT Last administered on 02/19/17 08:56; Admin Dose 150 MG; Start 02/13/17 at 09:00 Levofloxacin (Levaquin) 500 mg DAILY@06 PO Last administered on 02/19/17 05: 43; Admin Dose 500 MG; Start 02/15/17 at 15:00 Meclizine HCl (Antivert) 25 mg TID PO Last administered on 02/19/17 08:56; Admin Dose 25 MG; Start 02/17/17 at 09:00 Polyethylene Glycol (Miralax) 17 gm DAILY PRN NGT CONSTIPATION; Start 02/17/17 at 12:00 JANUARY YU MD Feb 19, 2017 12:45
--- NOTE | 2017-02-19 14:00 | PN ---
Date/Time of Note Date/Time of Note DATE: 02/19/17 TIME: 13:56 Assessment/Plan VTE Prophylaxis VTE Prophylaxis Intervention: SCD's Lines/Catheters IV C[facility] Type (from [facility] port a cath Urinary Cath still in place: No Assessment/Plan Chief Complaint/Hosp Course Patient stated some improvement in the symptoms of dizziness. Pending MRI with spectroscopy to further delineate the cerebral lesion today. Assessment/Plan - Recurrent/persistent ovarian cancer, status post secondary cytoreduction surgery by Dr Hayes. Dr. Bang is following in oncology consultation. - Possible cerebral metastases. Continue steroids. - Possible seizures, continue Keppra - Vertigo, continue Meclizine. - UTI, s/p treatment with Levaquin. - Chest pain, rule out acute coronary syndrome. CTA is negative for PE. Dr Lucero in following in cardiology consultation. - DM with hemoglobin A1c 6.3. Continue NovoLog per mild algorithm sliding scale. Further recommendations based on clinical course. Plan of care discussed with Dr. Phelps. Problems: Exam/Review of Systems Vital Signs Vitals Vital Signs Date Time Temp Pulse Resp B/P Pulse Ox O2 Delivery O2 Flow Rate FiO2 02/19/17 08:00 98.3 19 131/60 94 Room Air 02/19/17 02:14 56 Intake and Output 02/18/17 02/18/17 02/19/17 15:00 23:00 07:00 Intake Total 2440 ml 1000 ml Output Total 1500 ml 700 ml Balance 940 ml 300 ml Exam Constitutional: alert, oriented Respiratory: normal air movement Cardiovascular: nl pulses Gastrointestinal: non-tender, soft Neurological: nl mental status Skin: nl turgor Results Result Diagram: 02/18/17 0539 02/18/17 0539 Results 24 hrs Laboratory Tests Test 02/18/17 17:28 02/18/17 20:55 02/19/17 02:57 02/19/17 07:42 Bedside Glucose 196 228 H 204 185 Test 02/19/17 12:08 Bedside Glucose 150 Medications Medications Current Medications Nitroglycerin (Nitroglycerin (Sl Tab) 0.4 Mg) 1 tab Q5M PRN SL ANGINA; Start 02/04/17 at 03:30 Metoprolol Tartrate (Lopressor) 25 mg BID PO Last administered on 02/19/17t 08 :57; Admin Dose 25 MG; Start 02/04/17 at 09:00 Enoxaparin Sodium (Lovenox) 40 mg DAILY SC Last administered on 02/19/17 09: 00; Admin Dose 40 MG; Start 02/04/17 at 09:00 Acetaminophen (Tylenol Tab) 650 mg Q4H PRN PO PAIN AND OR ELEVATED TEMP Last administered on 02/15/17 13:47; Admin Dose 650 MG; Start 02/04/17 at 03:30 Hydromorphone HCl (Dilaudid) 1 mg Q3H PRN IV PAIN LEVEL 8-10 Last administered on 02/19/17 03:12; Admin Dose 1 MG; Start 02/04/17 at 03:30 Ondansetron HCl (Zofran Inj) 4 mg Q4H PRN IV NAUSEA AND/OR VOMITING Last administered on 02/11/17 01:16; Admin Dose 4 MG; Start 02/04/17 at 03:30 Pantoprazole (Protonix Tab) 40 mg DAILY@06 PO Last administered on 02/19/17 05:43; Admin Dose 40 MG; Start 02/04/17 at 06:00 Aspirin (Aspirin) 325 mg DAILY PO Last administered on 02/19/17 08:56; Admin Dose 325 MG; Start 02/04/17 at 09:00 Atorvastatin Calcium (Lipitor) 20 mg QHS PO Last administered on 02/18/17 20: 49; Admin Dose 20 MG; Start 02/05/17 at 21:00 Docusate Sodium (Colace) 100 mg BID PO Last administered on 02/19/17 08:56; Admin Dose 100 MG; Start 02/05/17 at 00:00 Lisinopril (Zestril) 5 mg DAILY PO Last administered on 02/19/17 08:57; Admin Dose 5 MG; Start 02/05/17 at 09:00 Diagnostic Test (Pha) (Accu-Chek) 1 ea 02 XX Last administered on 02/19/17 02 :58; Admin Dose 1 EA; Start 02/06/17 at 02:00 Miscellaneous Information 1 ea NOTE XX ; Start 02/05/17 at 18:30 Glucose (Glutose) 15 gm Q15M PRN PO DECREASED GLUCOSE; Start 02/05/17 at 18:30 Glucose (Glutose) 22.5 gm Q15M PRN PO DECREASED GLUCOSE; Start 02/05/17 at 18: 30 Dextrose (D50w Syringe) 25 ml Q15M PRN IV DECREASED GLUCOSE; Start 02/05/17 at 18:30 Dextrose (D50w Syringe) 50 ml Q15M PRN IV DECREASED GLUCOSE; Start 02/05/17 at 18:30 Glucagon (Glucagen) 1 mg Q15M PRN IM DECREASED GLUCOSE; Start 02/05/17 at 18: 30 Glucose 15 gm 15 gm Q15M PRN BUCCAL DECREASED GLUCOSE; Start 02/05/17 at 18:30 Potassium Chloride/Sodium Chloride (NS-KCl 20 Meq) 1,000 ml @ 60 mls/hr [id number] IV Last administered on 02/19/17 12:16; Admin Dose 60 MLS/HR; Start 02/07/17 at 16:00 Magnesium Hydroxide (Milk Of Mag) 30 ml Q6H PRN PO CONSTIPATION; Start at 23:00 Dexamethasone (Decadron) 4 mg Q6 IV Last administered on 02/19/17 12:16; Admin Dose 4 MG; Start 02/13/17 at 06:00 Levetiracetam (Keppra) 500 mg BID PO Last administered on 02/19/17 08:56; Admin Dose 500 MG; Start 02/13/17 at 09:00 Pregabalin (Lyrica) 150 mg BID NGT Last administered on 02/19/17 08:56; Admin Dose 150 MG; Start 02/13/17 at 09:00 Levofloxacin (Levaquin) 500 mg DAILY@06 PO Last administered on 02/19/17 05: 43; Admin Dose 500 MG; Start 02/15/17 at 15:00 Meclizine HCl (Antivert) 25 mg TID PO Last administered on 02/19/17 13:40; Admin Dose 25 MG; Start 02/17/17 at 09:00 Polyethylene Glycol (Miralax) 17 gm DAILY PRN NGT CONSTIPATION; Start 02/17/17 at 12:00 MATHIEU WALSH Feb 19, 2017 14:00
[2017-02-19 14:30] VITALS: BP 119/60; RESP 18
[2017-02-19 19:15] VITALS: BP 118/58; RESP 20
--- NOTE | 2017-02-19 20:02 | QN ---
Documentation Comment Feels comfortable but symptoms remain; patient awaits definitive treatment and understands. Re; check JEFF Jo MD Feb 19, 2017 20:02
[2017-02-19] MEDS: ATORVASTATIN 20 MG TAB PO SCH (20:47)
[2017-02-20] MEDS: DEXAMETHASONE 4 MG/ML 1 ML INJ IV SCH ×5 (00:27→23:38)
[2017-02-20] MEDS: HYDROmorphONE 0.5 MG/0.5 ML SYG IV PRN ×4 (00:28→23:47)
[2017-02-20] MEDS: ACCU-CHEK XX SCH (02:00)
[2017-02-20 02:16] VITALS: BP 131/62; RESP 20
[2017-02-20] MEDS: NS + KCL 20 MEQ 1,000 ML IV SCH ×3 (04:00→23:47)
[2017-02-20] MEDS: PANTOPRAZOLE (EC) 40 MG TAB PO SCH (05:23)
[2017-02-20 06:15] LABS: BASOPHILS % 0.1 % (0.0-2.0); HEMATOCRIT 32.9 % (37.0-47.0); HEMOGLOBIN 10.9 g/dl (12.0-16.0); LYMPHOCYTES # 1.2 10^3/ul (0.8-2.9); LYMPHOCYTES % 10.4 % (15.0-51.0); MEAN CORPUSCULAR HEMOGLOBIN 27.2 pg (29.0-33.0); MEAN CORPUSCULAR HGB CONC 33.1 g/dl (32.0-37.0); MEAN PLATELET VOLUME 9.5 fl (7.4-10.4); MONOCYTE # 0.6 10^3/ul (0.3-0.9); MONOCYTES % 4.9 % (0.0-11.0); NEUTROPHIL # 9.8 10^3/ul (1.6-7.5); NEUTROPHILS % 82.6 % (39.0-77.0); PLATELET COUNT 483 10^3/UL (140-415); RED BLOOD COUNT 4.01 10^6/ul (4.20-5.40); WHITE BLOOD COUNT 11.9 10^3/ul (4.8-10.8)
[2017-02-20 06:51] LABS: CALCIUM 8.6 mg/dl (8.4-10.2); CREATININE 0.63 mg/dl (0.44-1.00); POTASSIUM 4.3 mmol/L (3.5-5.1)
[2017-02-20 07:44] VITALS: BP 134/80; RESP 18
--- NOTE | 2017-02-20 08:25 | PN ---
Date/Time of Note Date/Time of Note DATE: 02/20/17 TIME: 08:25 Assessment/Plan VTE Prophylaxis VTE Prophylaxis Intervention: other Lines/Catheters IV [facility] Type (from [facility] port a cath Urinary Cath still in place: No Assessment/Plan Chief Complaint/Hosp Course - Recurrent/persistent ovarian cancer, status post secondary cytoreduction surgery by Dr Hayes. Dr. Bang is following in oncology consultation. - Possible cerebral metastases. Continue steroids. - Possible seizures, continue Keppra - Vertigo, continue Meclizine. - UTI, s/p treatment with Levaquin. - Chest pain, rule out acute coronary syndrome. CTA is negative for PE. Dr Lucero in following in cardiology consultation. - DM with hemoglobin A1c 6.3. Continue NovoLog per mild algorithm sliding scale. Problems: Subjective 24 Hr Interval Summary Free Text/Dictation Patient not in room, unable to interview Exam/Review of Systems Vital Signs Vitals Vital Signs Date Time Temp Pulse Resp B/P Pulse Ox O2 Delivery O2 Flow Rate FiO2 02/20/17 07:44 98.8 85 18 134/80 97 02/19/17 08:00 Room Air Intake and Output 02/19/17 02/19/17 02/20/17 15:00 23:00 07:00 Intake Total 300 ml 1620 ml 1960 ml Output Total 1900 ml 1000 ml Balance 300 ml -280 ml 960 ml Exam Patient not in room, unable to examine Results Result Diagram: 02/20/17 0531 02/20/17 0531 Results 24 hrs Laboratory Tests Test 02/19/17 12:08 02/19/17 16:49 02/19/17 20:45 02/20/17 02:59 Bedside Glucose 150 196 212 204 Test 02/20/17 05:31 White Blood Count 11.9 H Red Blood Count 4.01 L Hemoglobin 10.9 L Hematocrit 32.9 L Mean Corpuscular Volume 82.0 Mean Corpuscular Hemoglobin 27.2 L Mean Corpuscular Hemoglobin Concent 33.1 Red Cell Distribution Width 15.0 H Platelet Count 483 H Mean Platelet Volume 9.5 Neutrophils % 82.6 H Lymphocytes % 10.4 L Monocytes % 4.9 Eosinophils % 0.0 Basophils % 0.1 Nucleated Red Blood Cells % 0.0 Neutrophils # 9.8 H Lymphocytes # 1.2 Monocytes # 0.6 Eosinophils # 0.0 Basophils # 0.0 Nucleated Red Blood Cells # 0.0 Sodium Level 138 Potassium Level 4.3 Chloride Level 103 Carbon Dioxide Level 24 Anion Gap 15 Blood Urea Nitrogen 25 H Creatinine 0.63 Glucose Level 222 H Calcium Level 8.6 Medications Medications Current Medications Nitroglycerin (Nitroglycerin (Sl Tab) 0.4 Mg) 1 tab Q5M PRN SL ANGINA; Start 02/04/17 at 03:30 Metoprolol Tartrate (Lopressor) 25 mg BID PO Last administered on 02/19/17 20 :48; Admin Dose 25 MG; Start 02/04/17 at 09:00 Enoxaparin Sodium (Lovenox) 40 mg DAILY SC Last administered on 02/19/17 09: 00; Admin Dose 40 MG; Start 02/04/17 at 09:00 Acetaminophen (Tylenol Tab) 650 mg Q4H PRN PO PAIN AND OR ELEVATED TEMP Last administered on 02/15/17 13:47; Admin Dose 650 MG; Start 02/04/17 at 03:30 Hydromorphone HCl (Dilaudid) 1 mg Q3H PRN IV PAIN LEVEL 8-10 Last administered on 02/20/17 00:28; Admin Dose 1 MG; Start 02/04/17 at 03:30 Ondansetron HCl (Zofran Inj) 4 mg Q4H PRN IV NAUSEA AND/OR VOMITING Last administered on 02/11/17 01:16; Admin Dose 4 MG; Start 02/04/17 at 03:30 Pantoprazole (Protonix Tab) 40 mg DAILY@06 PO Last administered on 02/20/17 05:23; Admin Dose 40 MG; Start 02/04/17 at 06:00 Aspirin (Aspirin) 325 mg DAILY PO Last administered on 02/19/17 08:56; Admin Dose 325 MG; Start 02/04/17 at 09:00 Atorvastatin Calcium (Lipitor) 20 mg QHS PO Last administered on 02/19/17 20: 47; Admin Dose 20 MG; Start 02/05/17 at 21:00 Docusate Sodium (Colace) 100 mg BID PO Last administered on 02/19/17 20:47; Admin Dose 100 MG; Start 02/05/17 at 00:00 Lisinopril (Zestril) 5 mg DAILY PO Last administered on 02/19/17 08:57; Admin Dose 5 MG; Start 02/05/17 at 09:00 Diagnostic Test (Pha) (Accu-Chek) 1 ea 02 XX Last administered on 02/20/17 02 :00; Admin Dose 1 EA; Start 02/06/17 at 02:00 Miscellaneous Information 1 ea NOTE XX ; Start 02/05/17 at 18:30 Glucose (Glutose) 15 gm Q15M PRN PO DECREASED GLUCOSE; Start 02/05/17 at 18:30 Glucose (Glutose) 22.5 gm Q15M PRN PO DECREASED GLUCOSE; Start 02/05/17 at 18: 30 Dextrose (D50w Syringe) 25 ml Q15M PRN IV DECREASED GLUCOSE; Start 02/05/17 at 18:30 Dextrose (D50w Syringe) 50 ml Q15M PRN IV DECREASED GLUCOSE; Start 02/05/17 at 18:30 Glucagon (Glucagen) 1 mg Q15M PRN IM DECREASED GLUCOSE; Start 02/05/17 at 18: 30 Glucose 15 gm 15 gm Q15M PRN BUCCAL DECREASED GLUCOSE; Start 02/05/17 at 18:30 Potassium Chloride/Sodium Chloride (NS-KCl 20 Meq) 1,000 ml @ 60 mls/hr [id number] IV Last administered on 02/20/17 05:33; Admin Dose 60 MLS/HR; Start 02/07/17 at 16:00 Magnesium Hydroxide (Milk Of Mag) 30 ml Q6H PRN PO CONSTIPATION; Start at 23:00 Dexamethasone (Decadron) 4 mg Q6 IV Last administered on 02/20/17 05:23; Admin Dose 4 MG; Start 02/13/17 at 06:00 Levetiracetam (Keppra) 500 mg BID PO Last administered on 02/19/17 20:47; Admin Dose 500 MG; Start 02/13/17 at 09:00 Pregabalin (Lyrica) 150 mg BID NGT Last administered on 02/19/17 20:47; Admin Dose 150 MG; Start 02/13/17 at 09:00 Meclizine HCl (Antivert) 25 mg TID PO Last administered on 02/19/17 20:47; Admin Dose 25 MG; Start 02/17/17 at 09:00 Polyethylene Glycol (Miralax) 17 gm DAILY PRN NGT CONSTIPATION; Start 02/17/17 at 12:00 WAN CLANCY Feb 20, 2017 08:25
[2017-02-20] MEDS: INSULIN ASPART [NOVOLOG] 3 ML PEN SC SCH ×4 (09:12→21:00)
[2017-02-20] MEDS: MECLIZINE 25 MG TAB PO SCH ×3 (09:14→21:08)
[2017-02-20] MEDS: DOCUSATE SODIUM 100 MG CAP PO SCH ×2 (09:14→21:08)
[2017-02-20] MEDS: LEVETIRACETAM 500 MG TAB PO SCH ×2 (09:14→21:08)
[2017-02-20] MEDS: ASPIRIN 325 MG TAB PO SCH (09:14)
[2017-02-20] MEDS: METOPROLOL 25 MG TAB PO SCH ×2 (09:15→21:00)
[2017-02-20] MEDS: LISINOPRIL 5 MG TAB PO SCH (09:15)
[2017-02-20] MEDS: ENOXAPARIN 40 MG/0.4 ML SYG SC SCH (09:31)
[2017-02-20] MEDS: PREGABALIN 75 MG CAP NGT SCH ×2 (09:34→21:10)
--- NOTE | 2017-02-20 13:28 | CONS ---
Date/Time of Note Date/Time of Note DATE: 02/20/17 TIME: 13:26 Assessment/Plan Assessment/Plan Additional Assessment/Plan 1.Chest pain-negatve trop x 3/NL EF by echo this admit/Lexiscan with no ischemia NL EF - no intervention planned - NO CP now - no new sx now 2.HTN - well Rx, con't med Rx now - WELL CONTROLLED 3.UTI - on anti-bx - better now 4.abnl ecg - off tele now, no CP - stable status now 5. fevers - no new episodes now 6.DM - on meds, will keep euglycemic 7.Ovarian ca - oncology follows 8. Dylslipidemia Consultation Date/Type/Reason Admit Date/Time Feb 04, 2017 at 00:40 Type of Consultation: cardiology Referring Provider: COBY KRAMER MD 24 HR Interval Summary Free Text/Dictation NO acute events - BP in good range - NO CP now - will monitor clinically ROS: No fever, no chills, no nausea, no vomiting, no diarrhea/constipation No recent weight changes No chest pain, no PND, no orthopnea No dizziness, blurred vision No thirst, no heat or cold intolerance Exam/Review of Systems Vital Signs Vitals Vital Signs Date Time Temp Pulse Resp B/P Pulse Ox O2 Delivery O2 Flow Rate FiO2 02/20/17 07:44 98.8 85 18 134/80 97 02/19/17 08:00 Room Air Intake and Output 02/19/17 02/19/17 02/20/17 14:59 22:59 06:59 Intake Total 300 ml 1620 ml 1960 ml Output Total 1900 ml 1000 ml Balance 300 ml -280 ml 960 ml Exam General: WN/WD/NAD, AOx 3 HEENT: Unicetric/atraumatic/EOMI (follows commands) NECK: JVD elevated, no thyromegaly Lymph: no lymphadenopathy HEART: regular with no S3, II/ systolic murmur at apex LUNGS: Coarse sounds ABD: soft, NT, ND, +BS : Intact Neuro: non focal SKIN: chronic changes EXT: trace edema Results Result Diagram: 02/20/17 0531 02/20/1731 Results 24 hrs Laboratory Tests Test 02/19/17 16:49 02/19/17 20:45 02/20/17 02:59 02/20/17 05:31 Bedside Glucose 196 212 204 White Blood Count 11.9 H Red Blood Count 4.01 L Hemoglobin 10.9 L Hematocrit 32.9 L Mean Corpuscular Volume 82.0 Mean Corpuscular Hemoglobin 27.2 L Mean Corpuscular Hemoglobin Concent 33.1 Red Cell Distribution Width 15.0 H Platelet Count 483 H Mean Platelet Volume 9.5 Neutrophils % 82.6 H Lymphocytes % 10.4 L Monocytes % 4.9 Eosinophils % 0.0 Basophils % 0.1 Nucleated Red Blood Cells % 0.0 Neutrophils # 9.8 H Lymphocytes # 1.2 Monocytes # 0.6 Eosinophils # 0.0 Basophils # 0.0 Nucleated Red Blood Cells # 0.0 Sodium Level 138 Potassium Level 4.3 Chloride Level 103 Carbon Dioxide Level 24 Anion Gap 15 Blood Urea Nitrogen 25 H Creatinine 0.63 Glucose Level 222 H Calcium Level 8.6 Test 02/20/17 09:01 02/20/17 12:11 Bedside Glucose 222 H 176 Medications Medications Current Medications Nitroglycerin (Nitroglycerin (Sl Tab) 0.4 Mg) 1 tab Q5M PRN SL ANGINA; Start 02/04/17 at 03:30 Metoprolol Tartrate (Lopressor) 25 mg BID PO Last administered on 02/20/17 09 :15; Admin Dose 25 MG; Start 02/04/17 at 09:00 Enoxaparin Sodium (Lovenox) 40 mg DAILY SC Last administered on 02/20/17 09: 31; Admin Dose 40 MG; Start 02/04/17 at 09:00 Acetaminophen (Tylenol Tab) 650 mg Q4H PRN PO PAIN AND OR ELEVATED TEMP Last administered on 02/15/17 13:47; Admin Dose 650 MG; Start 02/04/17 at 03:30 Hydromorphone HCl (Dilaudid) 1 mg Q3H PRN IV PAIN LEVEL 8-10 Last administered on 02/20/17 00:28; Admin Dose 1 MG; Start 02/04/17 at 03:30 Ondansetron HCl (Zofran Inj) 4 mg Q4H PRN IV NAUSEA AND/OR VOMITING Last administered on 02/11/17 01:16; Admin Dose 4 MG; Start 02/04/17 at 03:30 Pantoprazole (Protonix Tab) 40 mg DAILY@06 PO Last administered on 02/20/17 05:23; Admin Dose 40 MG; Start 02/04/17 at 06:00 Aspirin (Aspirin) 325 mg DAILY PO Last administered on 02/20/17 09:14; Admin Dose 325 MG; Start 02/04/17 at 09:00 Atorvastatin Calcium (Lipitor) 20 mg QHS PO Last administered on 02/19/17 20: 47; Admin Dose 20 MG; Start 02/05/17 at 21:00 Docusate Sodium (Colace) 100 mg BID PO Last administered on 02/20/17 09:14; Admin Dose 100 MG; Start 02/05/17 at 00:00 Lisinopril (Zestril) 5 mg DAILY PO Last administered on 02/20/17 09:15; Admin Dose 5 MG; Start 02/05/17 at 09:00 Diagnostic Test (Pha) (Accu-Chek) 1 ea 02 XX Last administered on 02/20/17 02 :00; Admin Dose 1 EA; Start 02/06/17 at 02:00 Miscellaneous Information 1 ea NOTE XX ; Start 02/05/17 at 18:30 Glucose (Glutose) 15 gm Q15M PRN PO DECREASED GLUCOSE; Start 02/05/17 at 18:30 Glucose (Glutose) 22.5 gm Q15M PRN PO DECREASED GLUCOSE; Start 02/05/17 at 18: 30 Dextrose (D50w Syringe) 25 ml Q15M PRN IV DECREASED GLUCOSE; Start 02/05/17 at 18:30 Dextrose (D50w Syringe) 50 ml Q15M PRN IV DECREASED GLUCOSE; Start 02/05/17 at 18:30 Glucagon (Glucagen) 1 mg Q15M PRN IM DECREASED GLUCOSE; Start 02/05/17 at 18: 30 Glucose 15 gm 15 gm Q15M PRN BUCCAL DECREASED GLUCOSE; Start 02/05/17 at 18:30 Potassium Chloride/Sodium Chloride (NS-KCl 20 Meq) 1,000 ml @ 60 mls/hr [id number] IV Last administered on 02/20/17 05:33; Admin Dose 60 MLS/HR; Start 02/07/17 at 16:00 Magnesium Hydroxide (Milk Of Mag) 30 ml Q6H PRN PO CONSTIPATION; Start at 23:00 Dexamethasone (Decadron) 4 mg Q6 IV Last administered on 02/20/17 12:10; Admin Dose 4 MG; Start 02/13/17 at 06:00 Levetiracetam (Keppra) 500 mg BID PO Last administered on 02/20/17 09:14; Admin Dose 500 MG; Start 02/13/17 at 09:00 Pregabalin (Lyrica) 150 mg BID NGT Last administered on 02/20/17 09:34; Admin Dose 150 MG; Start 02/13/17 at 09:00 Meclizine HCl (Antivert) 25 mg TID PO Last administered on 02/20/17 12:10; Admin Dose 25 MG; Start 02/17/17 at 09:00 Polyethylene Glycol (Miralax) 17 gm DAILY PRN NGT CONSTIPATION; Start 02/17/17 at 12:00 JANUARY YU MD Feb 20, 2017 13:28
[2017-02-20 14:00] VITALS: BP 121/56; RESP 18
[2017-02-20] MEDS: POLYETHYLENE GLYCOL 17 GM PACKET NGT PRN (14:34)
--- NOTE | 2017-02-20 17:52 | CONS ---
Date/Time of Note Date/Time of Note DATE: 02/20/17 TIME: 17:47 Assessment/Plan Assessment/Plan Chief Complaint/Hosp Course Ovarian ca, DM Problems: Consultation Date/Type/Reason Admit Date/Time Feb 04, 2017 at 00:40 Initial Consult Date Type of Consultation: cardiology Referring Provider: COBY KRAMER MD Exam/Review of Systems Vital Signs Vitals Vital Signs Date Time Temp Pulse Resp B/P Pulse Ox O2 Delivery O2 Flow Rate FiO2 02/20/17 14:00 98.4 59 18 121/56 97 02/19/17 08:00 Room Air Intake and Output 02/19/17 02/19/17 02/20/17 14:59 22:59 06:59 Intake Total 300 ml 1620 ml 1960 ml Output Total 1900 ml 1000 ml Balance 300 ml -280 ml 960 ml Exam Pt was planned today but not available. Feels about the same Resp- clear CVS- NSR Abd- slight expansion and minimal tender Ext- minimal edema and NT Results Result Diagram: 02/20/17 0531 02/20/17 0531 Results 24 hrs Laboratory Tests Test 02/19/17 20:45 02/20/17 02:59 02/20/17 05:31 02/20/17 09:01 Bedside Glucose 212 204 222 H White Blood Count 11.9 H Red Blood Count 4.01 L Hemoglobin 10.9 L Hematocrit 32.9 L Mean Corpuscular Volume 82.0 Mean Corpuscular Hemoglobin 27.2 L Mean Corpuscular Hemoglobin Concent 33.1 Red Cell Distribution Width 15.0 H Platelet Count 483 H Mean Platelet Volume 9.5 Neutrophils % 82.6 H Lymphocytes % 10.4 L Monocytes % 4.9 Eosinophils % 0.0 Basophils % 0.1 Nucleated Red Blood Cells % 0.0 Neutrophils # 9.8 H Lymphocytes # 1.2 Monocytes # 0.6 Eosinophils # 0.0 Basophils # 0.0 Nucleated Red Blood Cells # 0.0 Sodium Level 138 Potassium Level 4.3 Chloride Level 103 Carbon Dioxide Level 24 Anion Gap 15 Blood Urea Nitrogen 25 H Creatinine 0.63 Glucose Level 222 H Calcium Level 8.6 Test 02/20/17 12:11 02/20/17 17:27 Bedside Glucose 176 225 H Medications Medications Current Medications Nitroglycerin (Nitroglycerin (Sl Tab) 0.4 Mg) 1 tab Q5M PRN SL ANGINA; Start 02/04/17 at 03:30 Metoprolol Tartrate (Lopressor) 25 mg BID PO Last administered on 02/20/17 09 :15; Admin Dose 25 MG; Start 02/04/17 at 09:00 Enoxaparin Sodium (Lovenox) 40 mg DAILY SC Last administered on 02/20/17 09: 31; Admin Dose 40 MG; Start 02/04/17 at 09:00 Acetaminophen (Tylenol Tab) 650 mg Q4H PRN PO PAIN AND OR ELEVATED TEMP Last administered on 02/15/17 13:47; Admin Dose 650 MG; Start 02/04/17 at 03:30 Hydromorphone HCl (Dilaudid) 1 mg Q3H PRN IV PAIN LEVEL 8-10 Last administered on 02/20/17 14:27; Admin Dose 1 MG; Start 02/04/17 at 03:30 Ondansetron HCl (Zofran Inj) 4 mg Q4H PRN IV NAUSEA AND/OR VOMITING Last administered on 02/11/17 01:16; Admin Dose 4 MG; Start 02/04/17 at 03:30 Pantoprazole (Protonix Tab) 40 mg DAILY@06 PO Last administered on 02/20/17 05:23; Admin Dose 40 MG; Start 02/04/17 at 06:00 Aspirin (Aspirin) 325 mg DAILY PO Last administered on 02/20/17 09:14; Admin Dose 325 MG; Start 02/04/17 at 09:00 Atorvastatin Calcium (Lipitor) 20 mg QHS PO Last administered on 02/19/17 20: 47; Admin Dose 20 MG; Start 02/05/17 at 21:00 Docusate Sodium (Colace) 100 mg BID PO Last administered on 02/20/17 09:14; Admin Dose 100 MG; Start 02/05/17 at 00:00 Lisinopril (Zestril) 5 mg DAILY PO Last administered on 02/20/17 09:15; Admin Dose 5 MG; Start 02/05/17 at 09:00 Diagnostic Test (Pha) (Accu-Chek) 1 ea 02 XX Last administered on 02/20/17 02 :00; Admin Dose 1 EA; Start 02/06/17 at 02:00 Miscellaneous Information 1 ea NOTE XX ; Start 02/05/17 at 18:30 Glucose (Glutose) 15 gm Q15M PRN PO DECREASED GLUCOSE; Start 02/05/17 at 18:30 Glucose (Glutose) 22.5 gm Q15M PRN PO DECREASED GLUCOSE; Start 02/05/17 at 18: 30 Dextrose (D50w Syringe) 25 ml Q15M PRN IV DECREASED GLUCOSE; Start 02/05/17 at 18:30 Dextrose (D50w Syringe) 50 ml Q15M PRN IV DECREASED GLUCOSE; Start 02/05/17 at 18:30 Glucagon (Glucagen) 1 mg Q15M PRN IM DECREASED GLUCOSE; Start 02/05/17 at 18: 30 Glucose 15 gm 15 gm Q15M PRN BUCCAL DECREASED GLUCOSE; Start 02/05/17 at 18:30 Potassium Chloride/Sodium Chloride (NS-KCl 20 Meq) 1,000 ml @ 60 mls/hr [id number] IV Last administered on 02/20/17 05:33; Admin Dose 60 MLS/HR; Start 02/07/17 at 16:00 Magnesium Hydroxide (Milk Of Mag) 30 ml Q6H PRN PO CONSTIPATION; Start at 23:00 Dexamethasone (Decadron) 4 mg Q6 IV Last administered on 02/20/17 17:28; Admin Dose 4 MG; Start 02/13/17 at 06:00 Levetiracetam (Keppra) 500 mg BID PO Last administered on 02/20/17 09:14; Admin Dose 500 MG; Start 02/13/17 at 09:00 Pregabalin (Lyrica) 150 mg BID NGT Last administered on 02/20/17 09:34; Admin Dose 150 MG; Start 02/13/17 at 09:00 Meclizine HCl (Antivert) 25 mg TID PO Last administered on 02/20/17 12:10; Admin Dose 25 MG; Start 02/17/17 at 09:00 Polyethylene Glycol (Miralax) 17 gm DAILY PRN NGT CONSTIPATION Last administered on 02/20/17 14:34; Admin Dose 17 GM; Start 02/17/17 at 12:00 Procedures Procedures A/P- doing about the same and awaits for dx as needed as planned. JEFF PALOMINO MD Feb 20, 2017 17:52
[2017-02-20 20:00] VITALS: BP 103/43; RESP 20
[2017-02-20] MEDS: ATORVASTATIN 20 MG TAB PO SCH (21:08)
[2017-02-21] MEDS: ACCU-CHEK XX SCH (01:59)
[2017-02-21 02:00] VITALS: BP 119/56; RESP 20
[2017-02-21] MEDS: DEXAMETHASONE 4 MG/ML 1 ML INJ IV SCH ×4 (05:47→23:39)
[2017-02-21] MEDS: PANTOPRAZOLE (EC) 40 MG TAB PO SCH (05:47)
[2017-02-21 07:21] VITALS: BP 125/60; RESP 20
[2017-02-21] MEDS: PREGABALIN 75 MG CAP NGT SCH ×2 (08:17→20:22)
[2017-02-21] MEDS: LEVETIRACETAM 500 MG TAB PO SCH ×2 (08:17→20:22)
[2017-02-21] MEDS: ASPIRIN 325 MG TAB PO SCH (08:17)
[2017-02-21] MEDS: DOCUSATE SODIUM 100 MG CAP PO SCH ×2 (08:18→20:21)
[2017-02-21] MEDS: MECLIZINE 25 MG TAB PO SCH ×3 (08:18→20:22)
[2017-02-21] MEDS: METOPROLOL 25 MG TAB PO SCH ×2 (08:18→21:00)
[2017-02-21] MEDS: LISINOPRIL 5 MG TAB PO SCH (08:19)
[2017-02-21] MEDS: INSULIN ASPART [NOVOLOG] 3 ML PEN SC SCH ×4 (08:28→21:00)
[2017-02-21] MEDS: ENOXAPARIN 40 MG/0.4 ML SYG SC SCH (08:28)
--- NOTE | 2017-02-21 09:28 | PN ---
Date/Time of Note Date/Time of Note DATE: 02/21/17 TIME: 09:28 Assessment/Plan VTE Prophylaxis VTE Prophylaxis Intervention: other Lines/Catheters IV [facility] A CATH Urinary Cath still in place: No Assessment/Plan Chief Complaint/Hosp Course - Recurrent/persistent ovarian cancer, status post secondary cytoreduction surgery by Dr Hayes. Dr. Bang is following in oncology consultation. - Possible cerebral metastases. Continue steroids. - Possible seizures, continue Keppra - Vertigo, continue Meclizine. - UTI, s/p treatment with Levaquin. - Chest pain, rule out acute coronary syndrome. CTA is negative for PE. Dr Lucero in following in cardiology consultation. - DM with hemoglobin A1c 6.3. Continue NovoLog per mild algorithm sliding scale. Problems: Subjective 24 Hr Interval Summary Free Text/Dictation Patient denies any abdominal pain Exam/Review of Systems Vital Signs Vitals Vital Signs Date Time Temp Pulse Resp B/P Pulse Ox O2 Delivery O2 Flow Rate FiO2 02/21/17 07:21 98.2 57 20 125/60 97 02/19/17 08:00 Room Air Intake and Output 02/20/17 02/20/17 02/21/17 15:00 23:00 07:00 Intake Total 1940 ml 1400 ml Output Total 2400 ml 1350 ml Balance -460 ml 50 ml Exam Constitutional: well developed Head: atraumatic, normocephalic Neck: supple Respiratory: clear to auscultation Cardiovascular: regular rate and rhythm Gastrointestinal: non-tender, soft Extremities: normal pulses Results Result Diagram: 02/20/17 0531 02/20/1731 Results 24 hrs Laboratory Tests Test 02/20/17 12:11 02/20/17 17:27 02/20/17 21:14 02/21/17 08:15 Bedside Glucose 176 225 H 180 182 Medications Medications Current Medications Nitroglycerin (Nitroglycerin (Sl Tab) 0.4 Mg) 1 tab Q5M PRN SL ANGINA; Start 02/04/17 at 03:30 Metoprolol Tartrate (Lopressor) 25 mg BID PO Last administered on 02/21/17 08 :18; Admin Dose 25 MG; Start 02/04/17 at 09:00 Enoxaparin Sodium (Lovenox) 40 mg DAILY SC Last administered on 02/21/17 08: 28; Admin Dose 40 MG; Start 02/04/17 at 09:00 Acetaminophen (Tylenol Tab) 650 mg Q4H PRN PO PAIN AND OR ELEVATED TEMP Last administered on 02/15/17 13:47; Admin Dose 650 MG; Start 02/04/17 at 03:30 Hydromorphone HCl (Dilaudid) 1 mg Q3H PRN IV PAIN LEVEL 8-10 Last administered on 02/20/17 23:47; Admin Dose 1 MG; Start 02/04/17 at 03:30 Ondansetron HCl (Zofran Inj) 4 mg Q4H PRN IV NAUSEA AND/OR VOMITING Last administered on 02/11/17 01:16; Admin Dose 4 MG; Start 02/04/17 at 03:30 Pantoprazole (Protonix Tab) 40 mg DAILY@06 PO Last administered on 02/21/17 05:47; Admin Dose 40 MG; Start 02/04/17 at 06:00 Aspirin (Aspirin) 325 mg DAILY PO Last administered on 02/21/17 08:17; Admin Dose 325 MG; Start 02/04/17 at 09:00 Atorvastatin Calcium (Lipitor) 20 mg QHS PO Last administered on 02/20/17 21: 08; Admin Dose 20 MG; Start 02/05/17 at 21:00 Docusate Sodium (Colace) 100 mg BID PO Last administered on 02/21/17 08:18; Admin Dose 100 MG; Start 02/05/17 at 00:00 Lisinopril (Zestril) 5 mg DAILY PO Last administered on 02/21/17 08:19; Admin Dose 5 MG; Start 02/05/17 at 09:00 Diagnostic Test (Pha) (Accu-Chek) 1 ea 02 XX Last administered on 02/20/17 02 :00; Admin Dose 1 EA; Start 02/06/17 at 02:00 Miscellaneous Information 1 ea NOTE XX ; Start 02/05/17 at 18:30 Glucose (Glutose) 15 gm Q15M PRN PO DECREASED GLUCOSE; Start 02/05/17 at 18:30 Glucose (Glutose) 22.5 gm Q15M PRN PO DECREASED GLUCOSE; Start 02/05/17 at 18: 30 Dextrose (D50w Syringe) 25 ml Q15M PRN IV DECREASED GLUCOSE; Start 02/05/17 at 18:30 Dextrose (D50w Syringe) 50 ml Q15M PRN IV DECREASED GLUCOSE; Start 02/05/17 at 18:30 Glucagon (Glucagen) 1 mg Q15M PRN IM DECREASED GLUCOSE; Start 02/05/17 at 18: 30 Glucose 15 gm 15 gm Q15M PRN BUCCAL DECREASED GLUCOSE; Start 02/05/17 at 18:30 Potassium Chloride/Sodium Chloride (NS-KCl 20 Meq) 1,000 ml @ 60 mls/hr [id number] IV Last administered on 02/20/17 23:47; Admin Dose 60 MLS/HR; Start 02/07/17 at 16:00 Magnesium Hydroxide (Milk Of Mag) 30 ml Q6H PRN PO CONSTIPATION; Start at 23:00 Dexamethasone (Decadron) 4 mg Q6 IV Last administered on 02/21/17 05:47; Admin Dose 4 MG; Start 02/13/17 at 06:00 Levetiracetam (Keppra) 500 mg BID PO Last administered on 02/21/17 08:17; Admin Dose 500 MG; Start 02/13/17 at 09:00 Pregabalin (Lyrica) 150 mg BID NGT Last administered on 02/21/17 08:17; Admin Dose 150 MG; Start 02/13/17 at 09:00 Meclizine HCl (Antivert) 25 mg TID PO Last administered on 02/21/17 08:18; Admin Dose 25 MG; Start 02/17/17 at 09:00 Polyethylene Glycol (Miralax) 17 gm DAILY PRN NGT CONSTIPATION Last administered on 02/20/17 14:34; Admin Dose 17 GM; Start 02/17/17 at 12:00 WAN CLANCY Feb 21, 2017 09:28
--- NOTE | 2017-02-21 13:38 | CONS ---
Date/Time of Note Date/Time of Note DATE: 02/21/17 TIME: 13:38 Assessment/Plan Assessment/Plan Additional Assessment/Plan 1.Chest pain-negatve trop x 3/NL EF by echo this admit/Lexiscan with no ischemia NL EF - no intervention planned - NO CP now - no new sx now 2.HTN - well Rx, con't med Rx now - WELL CONTROLLED - OFF TELE now. 3.UTI - on anti-bx - better now - treated 4.abnl ecg - off tele now, no CP - stable status now - no CP noted 5. fevers - no new episodes now 6.DM - on meds, will keep euglycemic 7.Ovarian ca - oncology follows 8. Dylslipidemia Consultation Date/Type/Reason Admit Date/Time Feb 04, 2017 at 00:40 Type of Consultation: cardiology Referring Provider: COBY KRAMER MD 24 HR Interval Summary Free Text/Dictation NO acute events - off tele - no CP now ROS: No fever, no chills, no nausea, no vomiting, no diarrhea/constipation No recent weight changes No chest pain, no PND, no orthopnea No dizziness, blurred vision No thirst, no heat or cold intolerance Exam/Review of Systems Vital Signs Vitals Vital Signs Date Time Temp Pulse Resp B/P Pulse Ox O2 Delivery O2 Flow Rate FiO2 02/21/17 07:21 98.2 57 20 125/60 97 02/19/17 08:00 Room Air Intake and Output 02/20/17 02/20/17 02/21/17 15:00 23:00 07:00 Intake Total 1940 ml 1400 ml Output Total 2400 ml 1350 ml Balance -460 ml 50 ml Exam General: WN/WD/NAD, AOx 2-3 HEENT: Unicetric/atraumatic/EOMI (follow commands) NECK: JVD elevated, no thyromegaly Lymph: no lymphadenopathy HEART: regular with no S3, II/ systolic murmur at apex LUNGS: Coarse sounds ABD: soft, NT, ND, +BS : Intact Neuro: non focal SKIN: chronic changes EXT: trace edema Results Result Diagram: 02/20/17 0531 02/20/17 0531 Results 24 hrs Laboratory Tests Test 02/20/17 17:27 02/20/17 21:14 02/21/17 08:15 02/21/17 12:49 Bedside Glucose 225 H 180 182 150 Medications Medications Current Medications Nitroglycerin (Nitroglycerin (Sl Tab) 0.4 Mg) 1 tab Q5M PRN SL ANGINA; Start 02/04/17 at 03:30 Metoprolol Tartrate (Lopressor) 25 mg BID PO Last administered on 02/21/17 08 :18; Admin Dose 25 MG; Start 02/04/17 at 09:00 Enoxaparin Sodium (Lovenox) 40 mg DAILY SC Last administered on 02/21/17 08: 28; Admin Dose 40 MG; Start 02/04/17 at 09:00 Acetaminophen (Tylenol Tab) 650 mg Q4H PRN PO PAIN AND OR ELEVATED TEMP Last administered on 02/15/17 13:47; Admin Dose 650 MG; Start 02/04/17 at 03:30 Hydromorphone HCl (Dilaudid) 1 mg Q3H PRN IV PAIN LEVEL 8-10 Last administered on 02/20/17 23:47; Admin Dose 1 MG; Start 02/04/17 at 03:30 Ondansetron HCl (Zofran Inj) 4 mg Q4H PRN IV NAUSEA AND/OR VOMITING Last administered on 02/11/17 01:16; Admin Dose 4 MG; Start 02/04/17 at 03:30 Pantoprazole (Protonix Tab) 40 mg DAILY@06 PO Last administered on 02/21/17 05:47; Admin Dose 40 MG; Start 02/04/17 at 06:00 Aspirin (Aspirin) 325 mg DAILY PO Last administered on 02/21/17 08:17; Admin Dose 325 MG; Start 02/04/17 at 09:00 Atorvastatin Calcium (Lipitor) 20 mg QHS PO Last administered on 02/20/17 21: 08; Admin Dose 20 MG; Start 02/05/17 at 21:00 Docusate Sodium (Colace) 100 mg BID PO Last administered on 02/21/17 08:18; Admin Dose 100 MG; Start 02/05/17 at 00:00 Lisinopril (Zestril) 5 mg DAILY PO Last administered on 02/21/17 08:19; Admin Dose 5 MG; Start 02/05/17 at 09:00 Diagnostic Test (Pha) (Accu-Chek) 1 ea 02 XX Last administered on 02/20/17 02 :00; Admin Dose 1 EA; Start 02/06/17 at 02:00 Miscellaneous Information 1 ea NOTE XX ; Start 02/05/17 at 18:30 Glucose (Glutose) 15 gm Q15M PRN PO DECREASED GLUCOSE; Start 02/05/17 at 18:30 Glucose (Glutose) 22.5 gm Q15M PRN PO DECREASED GLUCOSE; Start 02/05/17 at 18: 30 Dextrose (D50w Syringe) 25 ml Q15M PRN IV DECREASED GLUCOSE; Start 02/05/17 at 18:30 Dextrose (D50w Syringe) 50 ml Q15M PRN IV DECREASED GLUCOSE; Start 02/05/17 at 18:30 Glucagon (Glucagen) 1 mg Q15M PRN IM DECREASED GLUCOSE; Start 02/05/17 at 18: 30 Glucose 15 gm 15 gm Q15M PRN BUCCAL DECREASED GLUCOSE; Start 02/05/17 at 18:30 Potassium Chloride/Sodium Chloride (NS-KCl 20 Meq) 1,000 ml @ 60 mls/hr [id number] IV Last administered on 02/20/17 23:47; Admin Dose 60 MLS/HR; Start 02/07/17 at 16:00 Magnesium Hydroxide (Milk Of Mag) 30 ml Q6H PRN PO CONSTIPATION; Start at 23:00 Dexamethasone (Decadron) 4 mg Q6 IV Last administered on 02/21/17 12:50; Admin Dose 4 MG; Start 02/13/17 at 06:00 Levetiracetam (Keppra) 500 mg BID PO Last administered on 02/21/17 08:17; Admin Dose 500 MG; Start 02/13/17 at 09:00 Pregabalin (Lyrica) 150 mg BID NGT Last administered on 02/21/17 08:17; Admin Dose 150 MG; Start 02/13/17 at 09:00 Meclizine HCl (Antivert) 25 mg TID PO Last administered on 02/21/17 12:50; Admin Dose 25 MG; Start 02/17/17 at 09:00 Polyethylene Glycol (Miralax) 17 gm DAILY PRN NGT CONSTIPATION Last administered on 02/20/17 14:34; Admin Dose 17 GM; Start 02/17/17 at 12:00 JANUARY YU MD Feb 21, 2017 13:38
[2017-02-21 13:48] VITALS: BP 99/51; RESP 18
--- NOTE | 2017-02-21 15:52 | PN ---
Date/Time of Note Date/Time of Note DATE: 02/21/17 TIME: 15:41 Assessment/Plan VTE Prophylaxis VTE Prophylaxis Intervention: other Lines/Catheters IV Catheter Type (from Nrsg): PORT A CATH Urinary Cath still in place: No Assessment/Plan Chief Complaint/Hosp Course Ovarian ca, DM Problems: Assessment/Plan A- do chg P- anticipate imaging series a.m. if possible; patient has some level of constipation and encouraged minimize pain meds unless needed and consider additional xray. Subjective 24 Hr Interval Summary Free Text/Dictation Feels the same and not OOB. Exam/Review of Systems Vital Signs Vitals Vital Signs Date Time Temp Pulse Resp B/P Pulse Ox O2 Delivery O2 Flow Rate FiO2 02/21/17 13:48 98.4 55 18 99/51 98 02/19/17 08:00 Room Air Intake and Output 02/20/17 02/20/17 02/21/17 15:00 23:00 07:00 Intake Total 1940 ml 1400 ml Output Total 2400 ml 1350 ml Balance -460 ml 50 ml Exam Resp- clear CVS- unchgd Abd- sorft minimal distension Ext- NT minimal edema Results Result Diagram: 02/20/17 0531 02/20/1731 Results 24 hrs Laboratory Tests Test 02/20/17 17:27 02/20/17 21:14 02/21/17 08:15 02/21/17 12:49 Bedside Glucose 225 H 180 182 150 Medications Medications Current Medications Nitroglycerin (Nitroglycerin (Sl Tab) 0.4 Mg) 1 tab Q5M PRN SL ANGINA; Start 02/04/17 at 03:30 Metoprolol Tartrate (Lopressor) 25 mg BID PO Last administered on 02/21/17 08 :18; Admin Dose 25 MG; Start 02/04/17 at 09:00 Enoxaparin Sodium (Lovenox) 40 mg DAILY SC Last administered on 02/21/17 08: 28; Admin Dose 40 MG; Start 02/04/17 at 09:00 Acetaminophen (Tylenol Tab) 650 mg Q4H PRN PO PAIN AND OR ELEVATED TEMP Last administered on 02/15/17 13:47; Admin Dose 650 MG; Start 02/04/17 at 03:30 Hydromorphone HCl (Dilaudid) 1 mg Q3H PRN IV PAIN LEVEL 8-10 Last administered on 02/20/17 23:47; Admin Dose 1 MG; Start 02/04/17 at 03:30 Ondansetron HCl (Zofran Inj) 4 mg Q4H PRN IV NAUSEA AND/OR VOMITING Last administered on 02/11/17 01:16; Admin Dose 4 MG; Start 02/04/17 at 03:30 Pantoprazole (Protonix Tab) 40 mg DAILY@06 PO Last administered on 02/21/17 05:47; Admin Dose 40 MG; Start 02/04/17 at 06:00 Aspirin (Aspirin) 325 mg DAILY PO Last administered on 02/21/17 08:17; Admin Dose 325 MG; Start 02/04/17 at 09:00 Atorvastatin Calcium (Lipitor) 20 mg QHS PO Last administered on 02/20/17 21: 08; Admin Dose 20 MG; Start 02/05/17 at 21:00 Docusate Sodium (Colace) 100 mg BID PO Last administered on 02/21/17 08:18; Admin Dose 100 MG; Start 02/05/17 at 00:00 Lisinopril (Zestril) 5 mg DAILY PO Last administered on 02/21/17 08:19; Admin Dose 5 MG; Start 02/05/17 at 09:00 Diagnostic Test (Pha) (Accu-Chek) 1 ea 02 XX Last administered on 02/20/17 02 :00; Admin Dose 1 EA; Start 02/06/17 at 02:00 Miscellaneous Information 1 ea NOTE XX ; Start 02/05/17 at 18:30 Glucose (Glutose) 15 gm Q15M PRN PO DECREASED GLUCOSE; Start 02/05/17 at 18:30 Glucose (Glutose) 22.5 gm Q15M PRN PO DECREASED GLUCOSE; Start 02/05/17 at 18: 30 Dextrose (D50w Syringe) 25 ml Q15M PRN IV DECREASED GLUCOSE; Start 02/05/17 at 18:30 Dextrose (D50w Syringe) 50 ml Q15M PRN IV DECREASED GLUCOSE; Start 02/05/17 at 18:30 Glucagon (Glucagen) 1 mg Q15M PRN IM DECREASED GLUCOSE; Start 02/05/17 at 18: 30 Glucose 15 gm 15 gm Q15M PRN BUCCAL DECREASED GLUCOSE; Start 02/05/17 at 18:30 Potassium Chloride/Sodium Chloride (NS-KCl 20 Meq) 1,000 ml @ 60 mls/hr [id number] IV Last administered on 02/20/17 23:47; Admin Dose 60 MLS/HR; Start 02/07/17 at 16:00 Magnesium Hydroxide (Milk Of Mag) 30 ml Q6H PRN PO CONSTIPATION; Start at 23:00 Dexamethasone (Decadron) 4 mg Q6 IV Last administered on 02/21/17 12:50; Admin Dose 4 MG; Start 02/13/17 at 06:00 Levetiracetam (Keppra) 500 mg BID PO Last administered on 02/21/17 08:17; Admin Dose 500 MG; Start 02/13/17 at 09:00 Pregabalin (Lyrica) 150 mg BID NGT Last administered on 02/21/17 08:17; Admin Dose 150 MG; Start 02/13/17 at 09:00 Meclizine HCl (Antivert) 25 mg TID PO Last administered on 02/21/17 12:50; Admin Dose 25 MG; Start 02/17/17 at 09:00 Polyethylene Glycol (Miralax) 17 gm DAILY PRN NGT CONSTIPATION Last administered on 02/20/17 14:34; Admin Dose 17 GM; Start 02/17/17 at 12:00 JEFF PALOMINO MD Feb 21, 2017 15:51
[2017-02-21] MEDS: NS + KCL 20 MEQ 1,000 ML IV SCH (17:23)
--- NOTE | 2017-02-21 18:51 | PN ---
Date/Time of Note Date/Time of Note DATE: 02/21/17 TIME: 18:44 Assessment/Plan VTE Prophylaxis VTE Prophylaxis Intervention: anti-embolic stocking Lines/Catheters IV Catheter Type (from Nrs): port a cath Urinary Cath still in place: No Assessment/Plan Assessment/Plan Ms Stein is a 61 year old woman with recurrent ovarian cancer > Probable cerebral metastases secondary to ovarian cancer MRI with spectroscopy was not performed, as apparently semiconductor processing technician was not available Will attempt to reschedule this week. > Diabetes mellitus. Continue FSBG. I will continue to monitor. Subjective 24 Hr Interval Summary Free Text/Dictation Patient denies any headache nor visual changes. Exam/Review of Systems Vital Signs Vitals Vital Signs Date Time Temp Pulse Resp B/P Pulse Ox O2 Delivery O2 Flow Rate FiO2 02/21/17 13:48 98.4 55 18 99/51 98 02/19/17 08:00 Room Air Intake and Output 02/20/17 02/20/17 02/21/17 15:00 23:00 07:00 Intake Total 1940 ml 1400 ml Output Total 2400 ml 1350 ml Balance -460 ml 50 ml Exam Constitutional: alert, oriented Head: atraumatic, normocephalic Eyes: EOMI, nl conjunctiva Neck: non-tender, supple Respiratory: clear to auscultation, normal air movement Cardiovascular: nl pulses, regular rate and rhythm Gastrointestinal: non-tender, soft Extremities: calf tenderness, normal pulses Results Result Diagram: 02/20/17 0531 02/20/17 0531 Results 24 hrs Laboratory Tests Test 02/20/17 21:14 02/21/17 08:15 02/21/17 12:49 02/21/17 17:22 Bedside Glucose 180 182 150 221 H Medications Medications Current Medications Nitroglycerin (Nitroglycerin (Sl Tab) 0.4 Mg) 1 tab Q5M PRN SL ANGINA; Start 02/04/17 at 03:30 Metoprolol Tartrate (Lopressor) 25 mg BID PO Last administered on 02/21/17 08 :18; Admin Dose 25 MG; Start 02/04/17 at 09:00 Enoxaparin Sodium (Lovenox) 40 mg DAILY SC Last administered on 02/21/17 08: 28; Admin Dose 40 MG; Start 02/04/17 at 09:00 Acetaminophen (Tylenol Tab) 650 mg Q4H PRN PO PAIN AND OR ELEVATED TEMP Last administered on 02/15/17 13:47; Admin Dose 650 MG; Start 02/04/17 at 03:30 Hydromorphone HCl (Dilaudid) 1 mg Q3H PRN IV PAIN LEVEL 8-10 Last administered on 02/20/17 23:47; Admin Dose 1 MG; Start 02/04/17 at 03:30 Ondansetron HCl (Zofran Inj) 4 mg Q4H PRN IV NAUSEA AND/OR VOMITING Last administered on 02/11/17 01:16; Admin Dose 4 MG; Start 02/04/17 at 03:30 Pantoprazole (Protonix Tab) 40 mg DAILY@06 PO Last administered on 02/21/17 05:47; Admin Dose 40 MG; Start 02/04/17 at 06:00 Aspirin (Aspirin) 325 mg DAILY PO Last administered on 02/21/17 08:17; Admin Dose 325 MG; Start 02/04/17 at 09:00 Atorvastatin Calcium (Lipitor) 20 mg QHS PO Last administered on 02/20/17 21: 08; Admin Dose 20 MG; Start 02/05/17 at 21:00 Docusate Sodium (Colace) 100 mg BID PO Last administered on 02/21/17 08:18; Admin Dose 100 MG; Start 02/05/17 at 00:00 Lisinopril (Zestril) 5 mg DAILY PO Last administered on 02/21/17 08:19; Admin Dose 5 MG; Start 02/05/17 at 09:00 Diagnostic Test (Pha) (Accu-Chek) 1 ea 02 XX Last administered on 02/20/17 02 :00; Admin Dose 1 EA; Start 02/06/17 at 02:00 Miscellaneous Information 1 ea NOTE XX ; Start 02/05/17 at 18:30 Glucose (Glutose) 15 gm Q15M PRN PO DECREASED GLUCOSE; Start 02/05/17 at 18:30 Glucose (Glutose) 22.5 gm Q15M PRN PO DECREASED GLUCOSE; Start 02/05/17 at 18: 30 Dextrose (D50w Syringe) 25 ml Q15M PRN IV DECREASED GLUCOSE; Start 02/05/17 at 18:30 Dextrose (D50w Syringe) 50 ml Q15M PRN IV DECREASED GLUCOSE; Start 02/05/17 at 18:30 Glucagon (Glucagen) 1 mg Q15M PRN IM DECREASED GLUCOSE; Start 02/05/17 at 18: 30 Glucose 15 gm 15 gm Q15M PRN BUCCAL DECREASED GLUCOSE; Start 02/05/17 at 18:30 Potassium Chloride/Sodium Chloride (NS-KCl 20 Meq) 1,000 ml @ 60 mls/hr [id number] IV Last administered on 02/21/17 17:23; Admin Dose 60 MLS/HR; Start 02/07/17 at 16:00 Magnesium Hydroxide (Milk Of Mag) 30 ml Q6H PRN PO CONSTIPATION; Start at 23:00 Dexamethasone (Decadron) 4 mg Q6 IV Last administered on 02/21/17 17:23; Admin Dose 4 MG; Start 02/13/17 at 06:00 Levetiracetam (Keppra) 500 mg BID PO Last administered on 02/21/17 08:17; Admin Dose 500 MG; Start 02/13/17 at 09:00 Pregabalin (Lyrica) 150 mg BID NGT Last administered on 02/21/17 08:17; Admin Dose 150 MG; Start 02/13/17 at 09:00 Meclizine HCl (Antivert) 25 mg TID PO Last administered on 02/21/17 12:50; Admin Dose 25 MG; Start 02/17/17 at 09:00 Polyethylene Glycol (Miralax) 17 gm DAILY PRN NGT CONSTIPATION Last administered on 02/20/17 14:34; Admin Dose 17 GM; Start 02/17/17 at 12:00 ROBE WALKER MD Feb 21, 2017 18:51
[2017-02-21 19:30] VITALS: BP 102/50; RESP 20
[2017-02-21] MEDS: ATORVASTATIN 20 MG TAB PO SCH (20:21)
[2017-02-21] MEDS: HYDROmorphONE 0.5 MG/0.5 ML SYG IV PRN (21:36)
[2017-02-22 02:05] VITALS: BP 126/60; RESP 20
[2017-02-22] MEDS: ACCU-CHEK XX SCH (02:09)
[2017-02-22] MEDS: HYDROmorphONE 0.5 MG/0.5 ML SYG IV PRN ×4 (02:13→20:15)
[2017-02-22] MEDS: DEXAMETHASONE 4 MG/ML 1 ML INJ IV SCH ×3 (05:49→18:59)
[2017-02-22] MEDS: PANTOPRAZOLE (EC) 40 MG TAB PO SCH (05:49)
[2017-02-22] MEDS: NS + KCL 20 MEQ 1,000 ML IV SCH ×3 (05:49→22:40)
[2017-02-22 07:30] VITALS: BP 125/58; RESP 18
[2017-02-22] MEDS: INSULIN ASPART [NOVOLOG] 3 ML PEN SC SCH ×4 (08:10→20:23)
[2017-02-22] MEDS: ASPIRIN 325 MG TAB PO SCH (09:09)
[2017-02-22] MEDS: MECLIZINE 25 MG TAB PO SCH ×3 (09:09→20:12)
[2017-02-22] MEDS: LEVETIRACETAM 500 MG TAB PO SCH ×2 (09:09→20:13)
[2017-02-22] MEDS: PREGABALIN 75 MG CAP NGT SCH ×2 (09:09→20:12)
[2017-02-22] MEDS: DOCUSATE SODIUM 100 MG CAP PO SCH ×2 (09:09→20:24)
[2017-02-22] MEDS: METOPROLOL 25 MG TAB PO SCH ×2 (09:10→20:13)
[2017-02-22] MEDS: LISINOPRIL 5 MG TAB PO SCH (09:10)
[2017-02-22 09:12] VITALS: BP 128/58; PULSE 63
[2017-02-22] MEDS: ENOXAPARIN 40 MG/0.4 ML SYG SC SCH (09:19)
--- NOTE | 2017-02-22 11:41 | CONS ---
Date/Time of Note Date/Time of Note DATE: 02/22/17 TIME: 11:37 Assessment/Plan Assessment/Plan Chief Complaint/Hosp Course IMp: 1.Chest pain-negatve trop x 3/NL EF by echo this admit/Lexiscan with no ischemia NL EF 2.HTN 3.UTI 4.abnl ecg 5. fevers 6.DM 7.Ovarian ca with possible cerebral mets 8. Dylslipidemia Recc: -Now on med/surg -serial ecg's -continue BB/ACEI -contineu asa -Continue steroids -continue statin -ongoing onc/surgical f/u Problems: Consultation Date/Type/Reason Admit Date/Time Feb 04, 2017 at 00:40 Initial Consult Date 02/09/17 Type of Consultation: cardiology Reason for Consultation chest pain Referring Provider: COBY KRAMER MD Exam/Review of Systems Vital Signs Vitals Vital Signs Date Time Temp Pulse Resp B/P Pulse Ox O2 Delivery O2 Flow Rate FiO2 02/22/17 09:12 63 128/58 02/22/17 07:30 98.5 18 95 02/19/17 08:00 Room Air Intake and Output 02/21/17 02/21/17 02/22/17 15:00 23:00 07:00 Intake Total 1780 ml 960 ml Output Total 1550 ml 1650 ml Balance 230 ml -690 ml Exam Review of Systems: CONSTITUTIONAL: No fevers, chills. PULMONARY: No sob CARDIOVASCULAR: No chest pain/palpitations GASTROINTESTINAL: No nausea/vomiting. GENITOURINARY: No hematuria/dysuria. MUSCULOSKELETAL: No myagias/arthalgias. PSYCHIATRIC: The patient denies depression. NEUROLOGIC: headache Constitutional: alert, oriented, well developed Psych: no complaints Head: normocephalic ENMT: mucosa pink and moist Neck: jvd (9 cm water), supple Respiratory: clear to auscultation Cardiovascular: regular rate and rhythm Gastrointestinal: non-tender, soft Musculoskeletal: muscle tone (normal) Extremities: edema (none) Neurological: other (No focal deficits) Results Result Diagram: 02/20/17 0531 02/20/1731 Results 24 hrs Laboratory Tests Test 02/21/17 12:49 02/21/17 17:22 02/21/17 20:25 02/22/17 02:05 Bedside Glucose 150 221 H 226 H 235 H Test 02/22/17 05:47 02/22/17 08:03 Bedside Glucose 219 195 Medications Medications Current Medications Nitroglycerin (Nitroglycerin (Sl Tab) 0.4 Mg) 1 tab Q5M PRN SL ANGINA; Start 02/04/17 at 03:30 Metoprolol Tartrate (Lopressor) 25 mg BID PO Last administered on 02/22/17 09 :10; Admin Dose 25 MG; Start 02/04/17 at 09:00 Enoxaparin Sodium (Lovenox) 40 mg DAILY SC Last administered on 02/22/17 09: 19; Admin Dose 40 MG; Start 02/04/17 at 09:00 Acetaminophen (Tylenol Tab) 650 mg Q4H PRN PO PAIN AND OR ELEVATED TEMP Last administered on 02/15/17 13:47; Admin Dose 650 MG; Start 02/04/17 at 03:30 Hydromorphone HCl (Dilaudid) 1 mg Q3H PRN IV PAIN LEVEL 8-10 Last administered on 02/22/17 05:53; Admin Dose 1 MG; Start 02/04/17 at 03:30 Ondansetron HCl (Zofran Inj) 4 mg Q4H PRN IV NAUSEA AND/OR VOMITING Last administered on 02/11/17 01:16; Admin Dose 4 MG; Start 02/04/17 at 03:30 Pantoprazole (Protonix Tab) 40 mg DAILY@06 PO Last administered on 02/22/17 05:49; Admin Dose 40 MG; Start 02/04/17 at 06:00 Aspirin (Aspirin) 325 mg DAILY PO Last administered on 02/22/17 09:09; Admin Dose 325 MG; Start 02/04/17 at 09:00 Atorvastatin Calcium (Lipitor) 20 mg QHS PO Last administered on 02/21/17 20: 21; Admin Dose 20 MG; Start 02/05/17 at 21:00 Docusate Sodium (Colace) 100 mg BID PO Last administered on 02/22/17 09:09; Admin Dose 100 MG; Start 02/05/17 at 00:00 Lisinopril (Zestril) 5 mg DAILY PO Last administered on 02/22/17 09:10; Admin Dose 5 MG; Start 02/05/17 at 09:00 Diagnostic Test (Pha) (Accu-Chek) 1 ea 02 XX Last administered on 02/22/17 02 :09; Admin Dose 1 EA; Start 02/06/17 at 02:00 Miscellaneous Information 1 ea NOTE XX ; Start 02/05/17 at 18:30 Glucose (Glutose) 15 gm Q15M PRN PO DECREASED GLUCOSE; Start 02/05/17 at 18:30 Glucose (Glutose) 22.5 gm Q15M PRN PO DECREASED GLUCOSE; Start 02/05/17 at 18: 30 Dextrose (D50w Syringe) 25 ml Q15M PRN IV DECREASED GLUCOSE; Start 02/05/17 at 18:30 Dextrose (D50w Syringe) 50 ml Q15M PRN IV DECREASED GLUCOSE; Start 02/05/17 at 18:30 Glucagon (Glucagen) 1 mg Q15M PRN IM DECREASED GLUCOSE; Start 02/05/17 at 18: 30 Glucose 15 gm 15 gm Q15M PRN BUCCAL DECREASED GLUCOSE; Start 02/05/17 at 18:30 Potassium Chloride/Sodium Chloride (NS-KCl 20 Meq) 1,000 ml @ 60 mls/hr [id number] IV Last administered on 02/22/17 10:34; Admin Dose 60 MLS/HR; Start 02/07/17 at 16:00 Magnesium Hydroxide (Milk Of Mag) 30 ml Q6H PRN PO CONSTIPATION; Start at 23:00 Dexamethasone (Decadron) 4 mg Q6 IV Last administered on 02/22/17 05:49; Admin Dose 4 MG; Start 02/13/17 at 06:00 Levetiracetam (Keppra) 500 mg BID PO Last administered on 02/22/17 09:09; Admin Dose 500 MG; Start 02/13/17 at 09:00 Pregabalin (Lyrica) 150 mg BID NGT Last administered on 02/22/17 09:09; Admin Dose 150 MG; Start 02/13/17 at 09:00 Meclizine HCl (Antivert) 25 mg TID PO Last administered on 02/22/17 09:09; Admin Dose 25 MG; Start 02/17/17 at 09:00 Polyethylene Glycol (Miralax) 17 gm DAILY PRN NGT CONSTIPATION Last administered on 02/20/17 14:34; Admin Dose 17 GM; Start 02/17/17 at 12:00 CHRIS FINK Feb 22, 2017 11:41
[2017-02-22 13:58] VITALS: BP 104/50; RESP 18
--- NOTE | 2017-02-22 16:31 | PN ---
Date/Time of Note Date/Time of Note DATE: 02/22/17 TIME: 16:30 Assessment/Plan VTE Prophylaxis VTE Prophylaxis Intervention: SCD's Lines/Catheters IV [facility]from [facility] port a cath Urinary Cath still in place: No Assessment/Plan Chief Complaint/Hosp Course Patient complains of dizziness, urged to get out of bed and ambulate with assistance, still pending MRI with spectroscopy to further delineate the cerebral lesion today. Assessment/Plan - Recurrent/persistent ovarian cancer, status post secondary cytoreduction surgery by Dr Hayes. Dr. Bang is following in oncology consultation. - Possible cerebral metastases. Continue steroids. - Possible seizures, continue Keppra - Vertigo, continue Meclizine. - UTI, s/p treatment with Levaquin. - Chest pain, rule out acute coronary syndrome. CTA is negative for PE. Dr Lucero in following in cardiology consultation. - DM with hemoglobin A1c 6.3. Continue NovoLog per mild algorithm sliding scale. Further recommendations based on clinical course. Plan of care discussed with Dr. Phelps. Problems: Exam/Review of Systems Vital Signs Vitals Vital Signs Date Time Temp Pulse Resp B/P Pulse Ox O2 Delivery O2 Flow Rate FiO2 02/22/17 13:58 98.4 59 18 104/50 94 02/19/17 08:00 Room Air Intake and Output 02/21/17 02/21/17 02/22/17 15:00 23:00 07:00 Intake Total 1780 ml 960 ml Output Total 1550 ml 1650 ml Balance 230 ml -690 ml Exam Constitutional: alert, oriented Respiratory: normal air movement Cardiovascular: nl pulses Gastrointestinal: non-tender, soft Neurological: nl mental status Skin: nl turgor Results Result Diagram: 02/20/1731 02/20/1731 Results 24 hrs Laboratory Tests Test 02/21/17 17:22 02/21/17 20:25 02/22/17 02:05 02/22/17 05:47 Bedside Glucose 221 H 226 H 235 H 219 Test 02/22/17 08:03 02/22/17 12:10 Bedside Glucose 195 190 Medications Medications Current Medications Nitroglycerin (Nitroglycerin (Sl Tab) 0.4 Mg) 1 tab Q5M PRN SL ANGINA; Start 02/04/17 at 03:30 Metoprolol Tartrate (Lopressor) 25 mg BID PO Last administered on 02/22/17 09 :10; Admin Dose 25 MG; Start 02/04/17 at 09:00 Enoxaparin Sodium (Lovenox) 40 mg DAILY SC Last administered on 02/22/17 09: 19; Admin Dose 40 MG; Start 02/04/17 at 09:00 Acetaminophen (Tylenol Tab) 650 mg Q4H PRN PO PAIN AND OR ELEVATED TEMP Last administered on 02/15/17 13:47; Admin Dose 650 MG; Start 02/04/17 at 03:30 Hydromorphone HCl (Dilaudid) 1 mg Q3H PRN IV PAIN LEVEL 8-10 Last administered on 02/22/17 16:27; Admin Dose 1 MG; Start 02/04/17 at 03:30 Ondansetron HCl (Zofran Inj) 4 mg Q4H PRN IV NAUSEA AND/OR VOMITING Last administered on 02/11/17 01:16; Admin Dose 4 MG; Start 02/04/17 at 03:30 Pantoprazole (Protonix Tab) 40 mg DAILY@06 PO Last administered on 02/22/17 05:49; Admin Dose 40 MG; Start 02/04/17 at 06:00 Aspirin (Aspirin) 325 mg DAILY PO Last administered on 02/22/17 09:09; Admin Dose 325 MG; Start 02/04/17 at 09:00 Atorvastatin Calcium (Lipitor) 20 mg QHS PO Last administered on 02/21/17 20: 21; Admin Dose 20 MG; Start 02/05/17 at 21:00 Docusate Sodium (Colace) 100 mg BID PO Last administered on 02/22/17 09:09; Admin Dose 100 MG; Start 02/05/17 at 00:00 Lisinopril (Zestril) 5 mg DAILY PO Last administered on 02/22/17 09:10; Admin Dose 5 MG; Start 02/05/17 at 09:00 Diagnostic Test (Pha) (Accu-Chek) 1 ea 02 XX Last administered on 02/22/17 02 :09; Admin Dose 1 EA; Start 02/06/17 at 02:00 Miscellaneous Information 1 ea NOTE XX ; Start 02/05/17 at 18:30 Glucose (Glutose) 15 gm Q15M PRN PO DECREASED GLUCOSE; Start 02/05/17 at 18:30 Glucose (Glutose) 22.5 gm Q15M PRN PO DECREASED GLUCOSE; Start 02/05/17 at 18: 30 Dextrose (D50w Syringe) 25 ml Q15M PRN IV DECREASED GLUCOSE; Start 02/05/17 at 18:30 Dextrose (D50w Syringe) 50 ml Q15M PRN IV DECREASED GLUCOSE; Start 02/05/17 at 18:30 Glucagon (Glucagen) 1 mg Q15M PRN IM DECREASED GLUCOSE; Start 02/05/17 at 18: 30 Glucose 15 gm 15 gm Q15M PRN BUCCAL DECREASED GLUCOSE; Start 02/05/17 at 18:30 Potassium Chloride/Sodium Chloride (NS-KCl 20 Meq) 1,000 ml @ 60 mls/hr [id number] IV Last administered on 02/22/17 10:34; Admin Dose 60 MLS/HR; Start 02/07/17 at 16:00 Magnesium Hydroxide (Milk Of Mag) 30 ml Q6H PRN PO CONSTIPATION; Start at 23:00 Dexamethasone (Decadron) 4 mg Q6 IV Last administered on 02/22/17 12:12; Admin Dose 4 MG; Start 02/13/17 at 06:00 Levetiracetam (Keppra) 500 mg BID PO Last administered on 02/22/17 09:09; Admin Dose 500 MG; Start 02/13/17 at 09:00 Pregabalin (Lyrica) 150 mg BID NGT Last administered on 02/22/17 09:09; Admin Dose 150 MG; Start 02/13/17 at 09:00 Meclizine HCl (Antivert) 25 mg TID PO Last administered on 02/22/17 12:42; Admin Dose 25 MG; Start 02/17/17 at 09:00 Polyethylene Glycol (Miralax) 17 gm DAILY PRN NGT CONSTIPATION Last administered on 02/20/17 14:34; Admin Dose 17 GM; Start 02/17/17 at 12:00 MATHIEU WALSH Feb 22, 2017 16:31
--- NOTE | 2017-02-22 16:36 | PN ---
DATE: 02/22/2017 SUBJECTIVE: The patient states that she continues to feel better on a daily basis, although she sti ll complains of dizziness with any movement from [id number] as well as headaches. She states her appetite has been good. She has not had nausea or vomiting. There are no visual disturbances. No other neurologic complaints. OBJECTIVE: GENERAL: The patient is a well-developed, well-nourished female in no acute distress. VITAL SIGNS: Temperature 98.4, pulse 60 per minute and regular, respirations 18, blood pressure 104 /50 and pulse oximetry is 94% on room air. SKIN: No ecchymosis, no petechiae or rashes. HEENT: Normocephalic. No evidence of trauma. The pupils are equal, round, react to light and acco mmodation. Sclerae nonicteric. Oral mucosa is moist without lesions. NECK: Supple, no jugular venous distention or thyroid enlargement. No carotid bruits. CHEST: Clear to auscultation and percussion. No rhonchi, wheezes, rales or rubs. No pain on percu ssion of spine, sternum, clavicles or ribs. There is a Port-A-Cath in the right anterior chest in t he subclavicular area. This is accessed. There is no evidence of infection. HEART: Regular sinus rhythm, no S3, S4 or murmurs. No rubs. ABDOMEN: Soft. There are no masses or ascites. Bowel sounds are active. EXTREMITIES: Good range of motion. No clubbing, no edema or cyanosis. No palpable cords or Homans sign. NEUROLOGIC: Reveals no focal neurologic abnormalities. There is no asterixis. ASSESSMENT: 1. Ovarian carcinoma. 2. Diabetes mellitus. 3. Probable cerebral metastases secondary to #1. DISCUSSION: Unfortunately this patient was to be transported to [facility] on 01/2017 or 02/20/2017 in order to undergo an MRI was spectroscopy. Apparently, this procedure was c anceled. Apparently a dairy laboratory technician was not available to perform the procedure. Now it is stated that the procedure may be done today although this is unlikely since it is already 4:00 in the afternoon . The next available time slot apparently is on 03/01/2017. This patient has been waiting now for at least 7 days for this procedure and apparently will be wait ing another 7 days. It is known that the patient will require chemotherapy. This has been delayed pending further evaluation of the patient's cerebral abnormalities but I do not feel that therapy s hould be delayed much longer. Choices are either to start chemotherapy at this time during the hospitalization or to discharge the patient and perform this MRI as an outpatient. Dictated By: DAVID MESA MD SR/NTS Conf#: [id number] DID#: [id number] CC: DAVID MESA MD;*EndCC*
[2017-02-22 19:40] VITALS: BP 106/51; RESP 20
[2017-02-22] MEDS ORDERED: INSULIN GLARGINE [LANtus] 3 ML PEN SC SCH (20:00)
[2017-02-22] MEDS: ATORVASTATIN 20 MG TAB PO SCH (20:13)
[2017-02-22] MEDS: POLYETHYLENE GLYCOL 17 GM PACKET NGT PRN (21:23)
--- NOTE | 2017-02-22 21:46 | PN ---
Date/Time of Note Date/Time of Note DATE: 02/22/17 TIME: 21:42 Assessment/Plan VTE Prophylaxis VTE Prophylaxis Intervention: LMWH Lines/Catheters [facility] port a cath Urinary Cath still in place: No Assessment/Plan Chief Complaint/Hosp Course Ovarian ca, DM Problems: Assessment/Plan A/P- concern by the patient in that repetitive delay. Dr. Centeno's note appreciated, Will attempt to help tomorrow as I saw earlier. Subjective 24 Hr Interval Summary Free Text/Dictation Pt anxious as again cancelled and awaits plan. Exam/Review of Systems Vital Signs Vitals Vital Signs Date Time Temp Pulse Resp B/P Pulse Ox O2 Delivery O2 Flow Rate FiO2 02/22/17 19:40 98.3 63 20 106/51 93 02/19/17 08:00 Room Air Intake and Output 02/21/17 02/21/17 02/22/17 15:00 23:00 07:00 Intake Total 1780 ml 960 ml Output Total 1550 ml 1650 ml Balance 230 ml -690 ml Exam Resp- clear CVS-- NSR Abd- some distension min discomfort Ext- NT Results Result Diagram: 02/20/1731 02/20/1731 Results 24 hrs Laboratory Tests Test 02/22/17 02:05 02/22/17 05:47 02/22/17 08:03 02/22/17 12:10 Bedside Glucose 235 H 219 195 190 Test 02/22/17 17:43 02/22/17 20:11 Bedside Glucose 226 H 286 H Medications Medications Current Medications Nitroglycerin (Nitroglycerin (Sl Tab) 0.4 Mg) 1 tab Q5M PRN SL ANGINA; Start 02/04/17 at 03:30 Metoprolol Tartrate (Lopressor) 25 mg BID PO Last administered on 02/22/17 20 :13; Admin Dose 25 MG; Start 02/04/17 at 09:00 Enoxaparin Sodium (Lovenox) 40 mg DAILY SC Last administered on 02/22/17 09: 19; Admin Dose 40 MG; Start 02/04/17 at 09:00 Acetaminophen (Tylenol Tab) 650 mg Q4H PRN PO PAIN AND OR ELEVATED TEMP Last administered on 02/15/17 13:47; Admin Dose 650 MG; Start 02/04/17 at 03:30 Hydromorphone HCl (Dilaudid) 1 mg Q3H PRN IV PAIN LEVEL 8-10 Last administered on 02/22/17 20:15; Admin Dose 1 MG; Start 02/04/17 at 03:30 Ondansetron HCl (Zofran Inj) 4 mg Q4H PRN IV NAUSEA AND/OR VOMITING Last administered on 02/11/17 01:16; Admin Dose 4 MG; Start 02/04/17 at 03:30 Pantoprazole (Protonix Tab) 40 mg DAILY@06 PO Last administered on 02/22/17 05:49; Admin Dose 40 MG; Start 02/04/17 at 06:00 Aspirin (Aspirin) 325 mg DAILY PO Last administered on 02/22/17 09:09; Admin Dose 325 MG; Start 02/04/17 at 09:00 Atorvastatin Calcium (Lipitor) 20 mg QHS PO Last administered on 02/22/17 20: 13; Admin Dose 20 MG; Start 02/05/17 at 21:00 Docusate Sodium (Colace) 100 mg BID PO Last administered on 02/22/17 09:09; Admin Dose 100 MG; Start 02/05/17 at 00:00 Lisinopril (Zestril) 5 mg DAILY PO Last administered on 02/22/17 09:10; Admin Dose 5 MG; Start 02/05/17 at 09:00 Diagnostic Test (Pha) (Accu-Chek) 1 ea 02 XX Last administered on 02/22/17 02 :09; Admin Dose 1 EA; Start 02/06/17 at 02:00 Miscellaneous Information 1 ea NOTE XX ; Start 02/05/17 at 18:30 Glucose (Glutose) 15 gm Q15M PRN PO DECREASED GLUCOSE; Start 02/05/17 at 18:30 Glucose (Glutose) 22.5 gm Q15M PRN PO DECREASED GLUCOSE; Start 02/05/17 at 18: 30 Dextrose (D50w Syringe) 25 ml Q15M PRN IV DECREASED GLUCOSE; Start 02/05/17 at 18:30 Dextrose (D50w Syringe) 50 ml Q15M PRN IV DECREASED GLUCOSE; Start 02/05/17 at 18:30 Glucagon (Glucagen) 1 mg Q15M PRN IM DECREASED GLUCOSE; Start 02/05/17 at 18: 30 Glucose 15 gm 15 gm Q15M PRN BUCCAL DECREASED GLUCOSE; Start 02/05/17 at 18:30 Potassium Chloride/Sodium Chloride (NS-KCl 20 Meq) 1,000 ml @ 60 mls/hr [id number] IV Last administered on 02/22/17 10:34; Admin Dose 60 MLS/HR; Start 02/07/17 at 16:00 Magnesium Hydroxide (Milk Of Mag) 30 ml Q6H PRN PO CONSTIPATION; Start at 23:00 Dexamethasone (Decadron) 4 mg Q6 IV Last administered on 02/22/17 18:59; Admin Dose 4 MG; Start 02/13/17 at 06:00 Levetiracetam (Keppra) 500 mg BID PO Last administered on 02/22/17 20:13; Admin Dose 500 MG; Start 02/13/17 at 09:00 Pregabalin (Lyrica) 150 mg BID NGT Last administered on 02/22/17 20:12; Admin Dose 150 MG; Start 02/13/17 at 09:00 Meclizine HCl (Antivert) 25 mg TID PO Last administered on 02/22/17 20:12; Admin Dose 25 MG; Start 02/17/17 at 09:00 Polyethylene Glycol (Miralax) 17 gm DAILY PRN NGT CONSTIPATION Last administered on 02/22/17 21:23; Admin Dose 17 GM; Start 02/17/17 at 12:00 Insulin Glargine (Lantus) 7 unit DAILY@20 SC Last administered on 02/22/17 20 :24; Admin Dose 7 UNIT; Start 02/22/17 at 20:00 JEFF PALOMINO MD Feb 22, 2017 21:46
[2017-02-23] MEDS: DEXAMETHASONE 4 MG/ML 1 ML INJ IV SCH ×3 (00:19→11:52)
[2017-02-23] MEDS: HYDROmorphONE 0.5 MG/0.5 ML SYG IV PRN ×5 (00:19→21:00)
[2017-02-23 02:03] VITALS: BP 116/58; RESP 20
[2017-02-23] MEDS: ACCU-CHEK XX SCH (02:20)
[2017-02-23] MEDS: NS + KCL 20 MEQ 1,000 ML IV SCH ×3 (03:57→20:59)
[2017-02-23] MEDS: PANTOPRAZOLE (EC) 40 MG TAB PO SCH (05:13)
[2017-02-23 05:42] LABS: BASOPHILS % 0.2 % (0.0-2.0); HEMATOCRIT 32.1 % (37.0-47.0); HEMOGLOBIN 10.7 g/dl (12.0-16.0); LYMPHOCYTES % 9.7 % (15.0-51.0); MEAN CORPUSCULAR HEMOGLOBIN 27.6 pg (29.0-33.0); MEAN CORPUSCULAR HGB CONC 33.3 g/dl (32.0-37.0); MEAN CORPUSCULAR VOLUME 82.7 fl (82.0-101.0); MEAN PLATELET VOLUME 9.8 fl (7.4-10.4); MONOCYTE # 0.5 10^3/ul (0.3-0.9); MONOCYTES % 4.8 % (0.0-11.0); NEUTROPHIL # 8.7 10^3/ul (1.6-7.5); NEUTROPHILS % 82.7 % (39.0-77.0); PLATELET COUNT 334 10^3/UL (140-415); RED BLOOD COUNT 3.88 10^6/ul (4.20-5.40); RED CELL DISTRIBUTION WIDTH 15.2 % (11.5-14.5); WHITE BLOOD COUNT 10.5 10^3/ul (4.8-10.8)
[2017-02-23 06:12] LABS: ALBUMIN 2.9 g/dl (3.3-4.9); ALBUMIN/GLOBULIN RATIO 0.93; BILIRUBIN,INDIRECT 0.1 mg/dl (0-1.1); BILIRUBIN,TOTAL 0.1 mg/dl (0.2-1.3); CALCIUM 8.5 mg/dl (8.4-10.2); CREATININE 0.55 mg/dl (0.44-1.00); POTASSIUM 4.6 mmol/L (3.5-5.1)
[2017-02-23 07:36] VITALS: BP 134/61; RESP 18
[2017-02-23] MEDS: INSULIN ASPART [NOVOLOG] 3 ML PEN SC SCH ×4 (08:21→20:40)
[2017-02-23] MEDS: PREGABALIN 75 MG CAP NGT SCH ×2 (08:42→20:38)
[2017-02-23] MEDS: DOCUSATE SODIUM 100 MG CAP PO SCH ×2 (08:42→20:38)
[2017-02-23] MEDS: LEVETIRACETAM 500 MG TAB PO SCH ×2 (08:42→20:38)
[2017-02-23] MEDS: ASPIRIN 325 MG TAB PO SCH (08:43)
[2017-02-23] MEDS: LISINOPRIL 5 MG TAB PO SCH (08:43)
[2017-02-23] MEDS: MECLIZINE 25 MG TAB PO SCH ×3 (08:43→20:38)
[2017-02-23] MEDS: METOPROLOL 25 MG TAB PO SCH ×2 (08:44→20:39)
[2017-02-23] MEDS: ENOXAPARIN 40 MG/0.4 ML SYG SC SCH (08:49)
--- NOTE | 2017-02-23 10:44 | CONS ---
Date/Time of Note Date/Time of Note DATE: 02/23/17 TIME: 10:43 Assessment/Plan Assessment/Plan Additional Assessment/Plan 1.Chest pain-negatve trop x 3/NL EF by echo this admit/Lexiscan with no ischemia NL EF - no intervention planned - NO CP now - no new sx now 2.HTN - well Rx, con't med Rx now - WELL CONTROLLED - OFF TELE now. 3.UTI - on anti-bx - better now - treated 4.abnl ecg - off tele now, no CP - stable status now - no CP noted 5. fevers - no new episodes now 6.DM - on meds, will keep euglycemic 7.Ovarian ca - oncology follows - Rx as needed per hem-onc 8. Dylslipidemia - treated Consultation Date/Type/Reason Admit Date/Time Feb 04, 2017 at 00:40 Type of Consultation: cardiology Referring Provider: COBY KRAMER MD 24 HR Interval Summary Free Text/Dictation NO acute events - con't med care - of tele now ROS: No fever, no chills, no nausea, no vomiting, no diarrhea/constipation No recent weight changes No chest pain, no PND, no orthopnea No dizziness, blurred vision No thirst, no heat or cold intolerance Exam/Review of Systems Vital Signs Vitals Vital Signs Date Time Temp Pulse Resp B/P Pulse Ox O2 Delivery O2 Flow Rate FiO2 02/23/17 07:36 98.3 59 18 134/61 95 02/19/17 08:00 Room Air Intake and Output 02/22/17 02/22/17 02/23/17 15:00 23:00 07:00 Intake Total 280 ml 1750 ml 1400 ml Output Total 1750 ml 1300 ml Balance 280 ml 0 ml 100 ml Exam General: WN/WD/NAD, AOx 3 HEENT: Unicetric/atraumatic/EOMI (follows commands) NECK: JVD elevated, no thyromegaly Lymph: no lymphadenopathy HEART: regular with no S3, II/ systolic murmur at apex LUNGS: Coarse sounds ABD: soft, NT, ND, +BS : Intact Neuro: non focal SKIN: chronic changes EXT: trace edema Results Result Diagram: 02/23/1716 02/23/1716 Results 24 hrs Laboratory Tests Test 02/22/17 12:10 02/22/17:43 02/22/17 20:11 02/23/17 02:20 Bedside Glucose 190 226 H 286 H 235 H Test 02/23/17 05:16 02/23/17 07:59 White Blood Count 10.5 Red Blood Count 3.88 L Hemoglobin 10.7 L Hematocrit 32.1 L Mean Corpuscular Volume 82.7 Mean Corpuscular Hemoglobin 27.6 L Mean Corpuscular Hemoglobin Concent 33.3 Red Cell Distribution Width 15.2 H Platelet Count 334 # Mean Platelet Volume 9.8 Neutrophils % 82.7 H Lymphocytes % 9.7 L Monocytes % 4.8 Eosinophils % 0.0 Basophils % 0.2 Nucleated Red Blood Cells % 0.0 Neutrophils # 8.7 H Lymphocytes # 1.0 Monocytes # 0.5 Eosinophils # 0.0 Basophils # 0.0 Nucleated Red Blood Cells # 0.0 Sodium Level 136 Potassium Level 4.6 Chloride Level 105 Carbon Dioxide Level 25 Anion Gap 11 Blood Urea Nitrogen 27 H Creatinine 0.55 Glucose Level 219 Calcium Level 8.5 Total Bilirubin 0.1 L Direct Bilirubin 0.00 Indirect Bilirubin 0.1 Aspartate Amino Transf (AST/SGOT) 12 L Alanine Aminotransferase (ALT/SGPT) 28 Alkaline Phosphatase 87 Total Protein 6.0 L Albumin 2.9 L Globulin 3.10 Albumin/Globulin Ratio 0.93 Bedside Glucose 202 Medications Medications Current Medications Nitroglycerin (Nitroglycerin (Sl Tab) 0.4 Mg) 1 tab Q5M PRN SL ANGINA; Start 02/04/17 at 03:30 Metoprolol Tartrate (Lopressor) 25 mg BID PO Last administered on 02/23/17 08 :44; Admin Dose 25 MG; Start 02/04/17 at 09:00 Enoxaparin Sodium (Lovenox) 40 mg DAILY SC Last administered on 02/23/17 08: 49; Admin Dose 40 MG; Start 02/04/17 at 09:00 Acetaminophen (Tylenol Tab) 650 mg Q4H PRN PO PAIN AND OR ELEVATED TEMP Last administered on 02/15/17 13:47; Admin Dose 650 MG; Start 02/04/17 at 03:30 Hydromorphone HCl (Dilaudid) 1 mg Q3H PRN IV PAIN LEVEL 8-10 Last administered on 02/23/17 03:59; Admin Dose 1 MG; Start 02/04/17 at 03:30 Ondansetron HCl (Zofran Inj) 4 mg Q4H PRN IV NAUSEA AND/OR VOMITING Last administered on 02/11/17 01:16; Admin Dose 4 MG; Start 02/04/17 at 03:30 Pantoprazole (Protonix Tab) 40 mg DAILY@06 PO Last administered on 02/23/17 05:13; Admin Dose 40 MG; Start 02/04/17 at 06:00 Aspirin (Aspirin) 325 mg DAILY PO Last administered on 02/23/17 08:43; Admin Dose 325 MG; Start 02/04/17 at 09:00 Atorvastatin Calcium (Lipitor) 20 mg QHS PO Last administered on 02/22/17 20: 13; Admin Dose 20 MG; Start 02/05/17 at 21:00 Docusate Sodium (Colace) 100 mg BID PO Last administered on 02/23/17 08:42; Admin Dose 100 MG; Start 02/05/17 at 00:00 Lisinopril (Zestril) 5 mg DAILY PO Last administered on 02/23/17 08:43; Admin Dose 5 MG; Start 02/05/17 at 09:00 Diagnostic Test (Pha) (Accu-Chek) 1 ea 02 XX Last administered on 02/23/17 02 :20; Admin Dose 1 EA; Start 02/06/17 at 02:00 Miscellaneous Information 1 ea NOTE XX ; Start 02/05/17 at 18:30 Glucose (Glutose) 15 gm Q15M PRN PO DECREASED GLUCOSE; Start 02/05/17 at 18:30 Glucose (Glutose) 22.5 gm Q15M PRN PO DECREASED GLUCOSE; Start 02/05/17 at 18: 30 Dextrose (D50w Syringe) 25 ml Q15M PRN IV DECREASED GLUCOSE; Start 02/05/17 at 18:30 Dextrose (D50w Syringe) 50 ml Q15M PRN IV DECREASED GLUCOSE; Start 02/05/17 at 18:30 Glucagon (Glucagen) 1 mg Q15M PRN IM DECREASED GLUCOSE; Start 02/05/17 at 18: 30 Glucose 15 gm 15 gm Q15M PRN BUCCAL DECREASED GLUCOSE; Start 02/05/17 at 18:30 Potassium Chloride/Sodium Chloride (NS-KCl 20 Meq) 1,000 ml @ 60 mls/hr [id number] IV Last administered on 02/23/17 03:57; Admin Dose 60 MLS/HR; Start 02/07/17 at 16:00 Magnesium Hydroxide (Milk Of Mag) 30 ml Q6H PRN PO CONSTIPATION; Start at 23:00 Dexamethasone (Decadron) 4 mg Q6 IV Last administered on 02/23/17 05:10; Admin Dose 4 MG; Start 02/13/17 at 06:00 Levetiracetam (Keppra) 500 mg BID PO Last administered on 02/23/17 08:42; Admin Dose 500 MG; Start 02/13/17 at 09:00 Pregabalin (Lyrica) 150 mg BID NGT Last administered on 02/23/17 08:42; Admin Dose 150 MG; Start 02/13/17 at 09:00 Meclizine HCl (Antivert) 25 mg TID PO Last administered on 02/23/17 08:43; Admin Dose 25 MG; Start 02/17/17 at 09:00 Polyethylene Glycol (Miralax) 17 gm DAILY PRN NGT CONSTIPATION Last administered on 02/22/17 21:23; Admin Dose 17 GM; Start 02/17/17 at 12:00 Insulin Glargine (Lantus) 7 unit DAILY@20 SC Last administered on 02/22/17 20 :24; Admin Dose 7 UNIT; Start 02/22/17 at 20:00 JANUARY YU MD Feb 23, 2017 10:44
[2017-02-23 14:00] VITALS: BP 130/62; RESP 18
--- NOTE | 2017-02-23 16:17 | PN ---
Date/Time of Note Date/Time of Note DATE: 02/23/17 TIME: 16:14 Assessment/Plan VTE Prophylaxis VTE Prophylaxis Intervention: SCD's Lines/Catheters IV [facility] Type (from [facility] PORT-A-CATH Urinary Cath still in place: No Assessment/Plan Chief Complaint/Hosp Course MRI with spectroscopy to further delineate the cerebral lesion scheduled for March 01. We will change Decadron to p.o. and slowly titrate down the dose. Encouraged to get out of bed. If patient is stable will discharge pt home and patient will undergo MRI with spectroscopy as an outpatient Assessment/Plan - Recurrent/persistent ovarian cancer, status post secondary cytoreduction surgery by Dr Hayes. Dr. Bang is following in oncology consultation. - Possible cerebral metastases. Continue steroids. - Possible seizures, continue Keppra - Vertigo, continue Meclizine. - UTI, s/p treatment with Levaquin. - Chest pain, rule out acute coronary syndrome. CTA is negative for PE. Dr Lucero in following in cardiology consultation. - DM with hemoglobin A1c 6.3. Continue NovoLog per mild algorithm sliding scale. Further recommendations based on clinical course. Plan of care discussed with Dr. Phelps. Problems: Exam/Review of Systems Vital Signs Vitals Vital Signs Date Time Temp Pulse Resp B/P Pulse Ox O2 Delivery O2 Flow Rate FiO2 02/23/17 14:00 98.0 65 18 130/62 96 02/19/17 08:00 Room Air Intake and Output 02/22/17 02/22/17 02/23/17 15:00 23:00 07:00 Intake Total 280 ml 1750 ml 1400 ml Output Total 1750 ml 1300 ml Balance 280 ml 0 ml 100 ml Exam Constitutional: alert, oriented Respiratory: normal air movement Cardiovascular: nl pulses Gastrointestinal: non-tender, soft Neurological: nl mental status Skin: nl turgor Results Result Diagram: 02/23/17 0516 02/23/17 0516 Results 24 hrs Laboratory Tests Test 02/22/17 17:43 02/22/17 20:11 02/23/17 02:20 02/23/17 05:16 Bedside Glucose 226 H 286 H 235 H White Blood Count 10.5 Red Blood Count 3.88 L Hemoglobin 10.7 L Hematocrit 32.1 L Mean Corpuscular Volume 82.7 Mean Corpuscular Hemoglobin 27.6 L Mean Corpuscular Hemoglobin Concent 33.3 Red Cell Distribution Width 15.2 H Platelet Count 334 # Mean Platelet Volume 9.8 Neutrophils % 82.7 H Lymphocytes % 9.7 L Monocytes % 4.8 Eosinophils % 0.0 Basophils % 0.2 Nucleated Red Blood Cells % 0.0 Neutrophils # 8.7 H Lymphocytes # 1.0 Monocytes # 0.5 Eosinophils # 0.0 Basophils # 0.0 Nucleated Red Blood Cells # 0.0 Sodium Level 136 Potassium Level 4.6 Chloride Level 105 Carbon Dioxide Level 25 Anion Gap 11 Blood Urea Nitrogen 27 H Creatinine 0.55 Glucose Level 219 Calcium Level 8.5 Total Bilirubin 0.1 L Direct Bilirubin 0.00 Indirect Bilirubin 0.1 Aspartate Amino Transf (AST/SGOT) 12 L Alanine Aminotransferase (ALT/SGPT) 28 Alkaline Phosphatase 87 Total Protein 6.0 L Albumin 2.9 L Globulin 3.10 Albumin/Globulin Ratio 0.93 Test 02/23/17 07:59 02/23/17 12:18 Bedside Glucose 202 196 Medications Medications Current Medications Nitroglycerin (Nitroglycerin (Sl Tab) 0.4 Mg) 1 tab Q5M PRN SL ANGINA; Start 02/04/17 at 03:30 Metoprolol Tartrate (Lopressor) 25 mg BID PO Last administered on 02/23/17 08 :44; Admin Dose 25 MG; Start 02/04/17 at 09:00 Enoxaparin Sodium (Lovenox) 40 mg DAILY SC Last administered on 02/23/17 08: 49; Admin Dose 40 MG; Start 02/04/17 at 09:00 Acetaminophen (Tylenol Tab) 650 mg Q4H PRN PO PAIN AND OR ELEVATED TEMP Last administered on 02/15/17 13:47; Admin Dose 650 MG; Start 02/04/17 at 03:30 Hydromorphone HCl (Dilaudid) 1 mg Q3H PRN IV PAIN LEVEL 8-10 Last administered on 02/23/17 15:50; Admin Dose 1 MG; Start 02/04/17 at 03:30 Ondansetron HCl (Zofran Inj) 4 mg Q4H PRN IV NAUSEA AND/OR VOMITING Last administered on 02/11/17 01:16; Admin Dose 4 MG; Start 02/04/17 at 03:30 Pantoprazole (Protonix Tab) 40 mg DAILY@06 PO Last administered on 02/23/17 05:13; Admin Dose 40 MG; Start 02/04/17 at 06:00 Aspirin (Aspirin) 325 mg DAILY PO Last administered on 02/23/17 08:43; Admin Dose 325 MG; Start 02/04/17 at 09:00 Atorvastatin Calcium (Lipitor) 20 mg QHS PO Last administered on 02/22/17 20: 13; Admin Dose 20 MG; Start 02/05/17 at 21:00 Docusate Sodium (Colace) 100 mg BID PO Last administered on 02/23/17 08:42; Admin Dose 100 MG; Start 02/05/17 at 00:00 Lisinopril (Zestril) 5 mg DAILY PO Last administered on 02/23/17 08:43; Admin Dose 5 MG; Start 02/05/17 at 09:00 Diagnostic Test (Pha) (Accu-Chek) 1 ea 02 XX Last administered on 02/23/17 02 :20; Admin Dose 1 EA; Start 02/06/17 at 02:00 Miscellaneous Information 1 ea NOTE XX ; Start 02/05/17 at 18:30 Glucose (Glutose) 15 gm Q15M PRN PO DECREASED GLUCOSE; Start 02/05/17 at 18:30 Glucose (Glutose) 22.5 gm Q15M PRN PO DECREASED GLUCOSE; Start 02/05/17 at 18: 30 Dextrose (D50w Syringe) 25 ml Q15M PRN IV DECREASED GLUCOSE; Start 02/05/17 at 18:30 Dextrose (D50w Syringe) 50 ml Q15M PRN IV DECREASED GLUCOSE; Start 02/05/17 at 18:30 Glucagon (Glucagen) 1 mg Q15M PRN IM DECREASED GLUCOSE; Start 02/05/17 at 18: 30 Glucose 15 gm 15 gm Q15M PRN BUCCAL DECREASED GLUCOSE; Start 02/05/17 at 18:30 Potassium Chloride/Sodium Chloride (NS-KCl 20 Meq) 1,000 ml @ 60 mls/hr [id number] IV Last administered on 02/23/17 03:57; Admin Dose 60 MLS/HR; Start 02/07/17 at 16:00 Magnesium Hydroxide (Milk Of Mag) 30 ml Q6H PRN PO CONSTIPATION; Start at 23:00 Levetiracetam (Keppra) 500 mg BID PO Last administered on 02/23/17 08:42; Admin Dose 500 MG; Start 02/13/17 at 09:00 Pregabalin (Lyrica) 150 mg BID NGT Last administered on 02/23/17 08:42; Admin Dose 150 MG; Start 02/13/17 at 09:00 Meclizine HCl (Antivert) 25 mg TID PO Last administered on 02/23/17 13:35; Admin Dose 25 MG; Start 02/17/17 at 09:00 Polyethylene Glycol (Miralax) 17 gm DAILY PRN NGT CONSTIPATION Last administered on 02/22/17 21:23; Admin Dose 17 GM; Start 02/17/17 at 12:00 Insulin Glargine (Lantus) 7 unit DAILY@20 SC Last administered on 02/22/17 20 :24; Admin Dose 7 UNIT; Start 02/22/17 at 20:00 Dexamethasone (Decadron) 4 mg TID PO ; Start 02/23/17 at 21:00 MATHIEU WALSH Feb 23, 2017 16:17
--- NOTE | 2017-02-23 19:16 | PN ---
Date/Time of Note Date/Time of Note DATE: 02/23/17 TIME: 19:11 Assessment/Plan VTE Prophylaxis VTE Prophylaxis Intervention: LMWH Lines/Catheters IV C[facility]ter Type (from [facility]): Port-a-cath Urinary Cath still in place: No Assessment/Plan Chief Complaint/Hosp Course Ovarian ca, DM Problems: Assessment/Plan A- awaits to have biopsy and per pt and RN suggestion is 03/01 P- hopefully kavin and management home only with complete assurances needed Subjective 24 Hr Interval Summary Free Text/Dictation Feels about the same with some diff ambulating due to dizzy. Awaits additional MRI and rx. Exam/Review of Systems Vital Signs Vitals Vital Signs Date Time Temp Pulse Resp B/P Pulse Ox O2 Delivery O2 Flow Rate FiO2 02/23/17 14:00 98.0 65 18 130/62 96 02/19/17 08:00 Room Air Intake and Output 02/22/17 02/22/17 02/23/17 15:00 23:00 07:00 Intake Total 280 ml 1750 ml 1400 ml Output Total 1750 ml 1300 ml Balance 280 ml 0 ml 100 ml Exam No chg in PE Results Result Diagram: 02/23/17 0516 02/23/17 0516 Results 24 hrs Laboratory Tests Test 02/22/17 20:11 02/23/17 02:20 02/23/17 05:16 02/23/17 07:59 Bedside Glucose 286 H 235 H 202 White Blood Count 10.5 Red Blood Count 3.88 L Hemoglobin 10.7 L Hematocrit 32.1 L Mean Corpuscular Volume 82.7 Mean Corpuscular Hemoglobin 27.6 L Mean Corpuscular Hemoglobin Concent 33.3 Red Cell Distribution Width 15.2 H Platelet Count 334 # Mean Platelet Volume 9.8 Neutrophils % 82.7 H Lymphocytes % 9.7 L Monocytes % 4.8 Eosinophils % 0.0 Basophils % 0.2 Nucleated Red Blood Cells % 0.0 Neutrophils # 8.7 H Lymphocytes # 1.0 Monocytes # 0.5 Eosinophils # 0.0 Basophils # 0.0 Nucleated Red Blood Cells # 0.0 Sodium Level 136 Potassium Level 4.6 Chloride Level 105 Carbon Dioxide Level 25 Anion Gap 11 Blood Urea Nitrogen 27 H Creatinine 0.55 Glucose Level 219 Calcium Level 8.5 Total Bilirubin 0.1 L Direct Bilirubin 0.00 Indirect Bilirubin 0.1 Aspartate Amino Transf (AST/SGOT) 12 L Alanine Aminotransferase (ALT/SGPT) 28 Alkaline Phosphatase 87 Total Protein 6.0 L Albumin 2.9 L Globulin 3.10 Albumin/Globulin Ratio 0.93 Test 02/23/17 12:18 02/23/17 17:19 Bedside Glucose 196 202 Medications Medications Current Medications Nitroglycerin (Nitroglycerin (Sl Tab) 0.4 Mg) 1 tab Q5M PRN SL ANGINA; Start 02/04/17 at 03:30 Metoprolol Tartrate (Lopressor) 25 mg BID PO Last administered on 02/23/17 08 :44; Admin Dose 25 MG; Start 02/04/17 at 09:00 Enoxaparin Sodium (Lovenox) 40 mg DAILY SC Last administered on 02/23/17 08: 49; Admin Dose 40 MG; Start 02/04/17 at 09:00 Acetaminophen (Tylenol Tab) 650 mg Q4H PRN PO PAIN AND OR ELEVATED TEMP Last administered on 02/15/17 13:47; Admin Dose 650 MG; Start 02/04/17 at 03:30 Hydromorphone HCl (Dilaudid) 1 mg Q3H PRN IV PAIN LEVEL 8-10 Last administered on 02/23/17 15:50; Admin Dose 1 MG; Start 02/04/17 at 03:30 Ondansetron HCl (Zofran Inj) 4 mg Q4H PRN IV NAUSEA AND/OR VOMITING Last administered on 02/11/17 01:16; Admin Dose 4 MG; Start 02/04/17 at 03:30 Pantoprazole (Protonix Tab) 40 mg DAILY@06 PO Last administered on 02/23/17 05:13; Admin Dose 40 MG; Start 02/04/17 at 06:00 Aspirin (Aspirin) 325 mg DAILY PO Last administered on 02/23/17 08:43; Admin Dose 325 MG; Start 02/04/17 at 09:00 Atorvastatin Calcium (Lipitor) 20 mg QHS PO Last administered on 02/22/17 20: 13; Admin Dose 20 MG; Start 02/05/17 at 21:00 Docusate Sodium (Colace) 100 mg BID PO Last administered on 02/23/17 08:42; Admin Dose 100 MG; Start 02/05/17 at 00:00 Lisinopril (Zestril) 5 mg DAILY PO Last administered on 02/23/17 08:43; Admin Dose 5 MG; Start 02/05/17 at 09:00 Diagnostic Test (Pha) (Accu-Chek) 1 ea 02 XX Last administered on 02/23/17 02 :20; Admin Dose 1 EA; Start 02/06/17 at 02:00 Miscellaneous Information 1 ea NOTE XX ; Start 02/05/17 at 18:30 Glucose (Glutose) 15 gm Q15M PRN PO DECREASED GLUCOSE; Start 02/05/17 at 18:30 Glucose (Glutose) 22.5 gm Q15M PRN PO DECREASED GLUCOSE; Start 02/05/17 at 18: 30 Dextrose (D50w Syringe) 25 ml Q15M PRN IV DECREASED GLUCOSE; Start 02/05/17 at 18:30 Dextrose (D50w Syringe) 50 ml Q15M PRN IV DECREASED GLUCOSE; Start 02/05/17 at 18:30 Glucagon (Glucagen) 1 mg Q15M PRN IM DECREASED GLUCOSE; Start 02/05/17 at 18: 30 Glucose 15 gm 15 gm Q15M PRN BUCCAL DECREASED GLUCOSE; Start 02/05/17 at 18:30 Potassium Chloride/Sodium Chloride (NS-KCl 20 Meq) 1,000 ml @ 60 mls/hr [id number] IV Last administered on 02/23/17 03:57; Admin Dose 60 MLS/HR; Start 02/07/17 at 16:00 Magnesium Hydroxide (Milk Of Mag) 30 ml Q6H PRN PO CONSTIPATION; Start at 23:00 Levetiracetam (Keppra) 500 mg BID PO Last administered on 02/23/17 08:42; Admin Dose 500 MG; Start 02/13/17 at 09:00 Pregabalin (Lyrica) 150 mg BID NGT Last administered on 02/23/17 08:42; Admin Dose 150 MG; Start 02/13/17 at 09:00 Meclizine HCl (Antivert) 25 mg TID PO Last administered on 02/23/17 13:35; Admin Dose 25 MG; Start 02/17/17 at 09:00 Polyethylene Glycol (Miralax) 17 gm DAILY PRN NGT CONSTIPATION Last administered on 11/13/17at 21:23; Admin Dose 17 GM; Start 02/17/17 at 12:00 Dexamethasone (Decadron) 4 mg TID PO ; Start 02/23/17 at 21:00 Insulin Glargine (Lantus) 10 unit DAILY@20 SC ; Start 02/23/17 at 20:00 JEFF PALOMINO MD Feb 23, 2017 19:16
[2017-02-23] MEDS ORDERED: INSULIN GLARGINE [LANtus] 3 ML PEN SC SCH (20:00)
[2017-02-23 20:01] VITALS: BP 108/52; RESP 18
[2017-02-23] MEDS: ATORVASTATIN 20 MG TAB PO SCH (20:38)
[2017-02-23] MEDS: DEXAMETHASONE 4 MG TAB PO SCH (20:39)
--- NOTE | 2017-02-23 21:24 | PN ---
DATE: 02/23/2017 SUBJECTIVE: The patient has the same complaints of dizziness and headaches. She is able to eat. N o nausea or vomiting. She is able to ambulate. States that dizziness seems to be worse when she tr ies to get in or out of bed. OBJECTIVE: GENERAL: The patient is a well-developed, well-nourished female in no acute distress. VITAL SIGNS: Temperature 97.9, pulse 60 per minute and regular, respirations 18, blood pressure 108 /52, pulse oximetry 95% on room air. SKIN: No ecchymosis, no petechiae or rashes. HEENT: Normocephalic. No evidence of trauma. Pupils equal, round, react to light and accommodatio n. There is no scleral icterus. No nystagmus. Extraocular movements are intact. Oral mucosa is m oist without lesions. NECK: Supple, no jugular venous distention or thyroid enlargement. No carotid bruits. CHEST: Clear to auscultation and percussion. No rhonchi, wheezes, rales or rubs. There is a Port- A-Cath which is accessed in the right anterior chest in the subclavicular area. HEART: Regular sinus rhythm, no S3, S4 or murmurs. No rubs. ABDOMEN: Soft, no masses, no ascites. EXTREMITIES: Good range of motion, no clubbing, edema or cyanosis. No palpable cords or Homans' si gn. NEUROLOGIC: Normal. There are no focal neurologic abnormalities. No asterixis. ASSESSMENT: 1. Ovarian carcinoma. 2. Diabetes mellitus. 3. Probable cerebral metastasis secondary to #1. DISCUSSION: Again, the patient did not have the procedure of MRI with spectroscopy done on 02/23/20 17. The patient has now shown me a letter which she received either yesterday or today from her [facility] states that she has received approval for the MRI with spectroscopy to be done by the [facility]. Perhaps, this can be arranged quickly and the patient can have the procedure done at the [facility]. Dictated By: DAVID MESA MD SR/NTS Conf#: [id number] DID#: [id number] CC: COBY KRAMER MD;*EndCC*
[2017-02-24] MEDS: ACCU-CHEK XX SCH (02:00)
[2017-02-24 02:01] VITALS: BP 110/54; RESP 20
[2017-02-24] MEDS: HYDROmorphONE 0.5 MG/0.5 ML SYG IV PRN ×2 (02:34→10:24)
[2017-02-24] MEDS: PANTOPRAZOLE (EC) 40 MG TAB PO SCH (05:18)
[2017-02-24 05:50] LABS: BASOPHILS % 0.1 % (0.0-2.0); EOSINOPHILS # 0.1 10^3/ul (0.0-0.5); EOSINOPHILS % 0.9 % (0.0-7.0); HEMOGLOBIN 10.8 g/dl (12.0-16.0); LYMPHOCYTES # 1.6 10^3/ul (0.8-2.9); LYMPHOCYTES % 13.8 % (15.0-51.0); MEAN CORPUSCULAR HEMOGLOBIN 28.1 pg (29.0-33.0); MEAN CORPUSCULAR HGB CONC 33.8 g/dl (32.0-37.0); MEAN CORPUSCULAR VOLUME 83.3 fl (82.0-101.0); MONOCYTE # 0.9 10^3/ul (0.3-0.9); NEUTROPHIL # 8.8 10^3/ul (1.6-7.5); NUCLEATED RED BLOOD CELLS% 0.2 /100WBC (0.0-0.0); PLATELET COUNT 295 10^3/UL (140-415); RED BLOOD COUNT 3.84 10^6/ul (4.20-5.40); RED CELL DISTRIBUTION WIDTH 15.2 % (11.5-14.5); WHITE BLOOD COUNT 11.7 10^3/ul (4.8-10.8)
[2017-02-24 06:19] LABS: CALCIUM 8.3 mg/dl (8.4-10.2); CREATININE 0.69 mg/dl (0.44-1.00); POTASSIUM 4.4 mmol/L (3.5-5.1)
[2017-02-24 07:18] VITALS: BP 115/56; RESP 16
[2017-02-24] MEDS: ASPIRIN 325 MG TAB PO SCH (08:17)
[2017-02-24] MEDS: DEXAMETHASONE 4 MG TAB PO SCH ×2 (08:17→13:16)
[2017-02-24] MEDS: DOCUSATE SODIUM 100 MG CAP PO SCH (08:17)
[2017-02-24] MEDS: PREGABALIN 75 MG CAP NGT SCH (08:18)
[2017-02-24] MEDS: MECLIZINE 25 MG TAB PO SCH ×2 (08:18→13:16)
[2017-02-24] MEDS: LEVETIRACETAM 500 MG TAB PO SCH (08:18)
[2017-02-24] MEDS: METOPROLOL 25 MG TAB PO SCH (08:21)
[2017-02-24] MEDS: LISINOPRIL 5 MG TAB PO SCH (08:22)
[2017-02-24] MEDS: INSULIN ASPART [NOVOLOG] 3 ML PEN SC SCH ×3 (08:27→17:32)
[2017-02-24] MEDS: ENOXAPARIN 40 MG/0.4 ML SYG SC SCH (08:27)
--- NOTE | 2017-02-24 12:58 | CONS ---
Date/Time of Note Date/Time of Note DATE: 02/24/17 TIME: 12:56 Assessment/Plan Assessment/Plan Chief Complaint/Hosp Course IMp: 1.Chest pain-negatve trop x 3/NL EF by echo this admit/Lexiscan with no ischemia NL EF 2.HTN 3.UTI 4.abnl ecg 5. fevers 6.DM 7.Ovarian ca with possible cerebral mets 8. Dylslipidemia Recc: -Now on med/surg -serial ecg's -continue ACEI -Continue BB as tolerated following HR closely and thus will decrease dose -continue asa -Continue steroids -continue statin -ongoing onc/surgical f/u Problems: Consultation Date/Type/Reason Admit Date/Time Feb 04, 2017 at 00:40 Initial Consult Date 02/09/17 Type of Consultation: cardiology Reason for Consultation chest pain Referring Provider: COBY KRAMER MD Exam/Review of Systems Vital Signs Vitals Vital Signs Date Time Temp Pulse Resp B/P Pulse Ox O2 Delivery O2 Flow Rate FiO2 02/24/17 07:18 98.7 57 16 115/56 94 Intake and Output 02/23/17 02/23/17 02/24/17 14:59 22:59 06:59 Intake Total 1830 ml 500 ml Output Total 1400 ml Balance 430 ml 500 ml Exam Review of Systems: CONSTITUTIONAL: No fevers, chills. PULMONARY: No sob CARDIOVASCULAR: No chest pain/palpitations GASTROINTESTINAL: No nausea/vomiting. GENITOURINARY: No hematuria/dysuria. MUSCULOSKELETAL: No myagias/arthalgias. PSYCHIATRIC: The patient denies depression. NEUROLOGIC: No weakness Constitutional: alert Psych: no complaints Head: normocephalic ENMT: mucosa pink and moist Neck: jvd (9 cm water), supple Respiratory: clear to auscultation Cardiovascular: regular rate and rhythm Gastrointestinal: non-tender, soft Musculoskeletal: muscle tone (normal) Extremities: pitting pedal edema (none) Neurological: other (No focal deficits) Results Result Diagram: 02/24/17 0508 02/24/17 0508 Results 24 hrs Laboratory Tests Test 02/23/17 17:19 02/23/17 20:31 02/24/17 05:08 02/24/17 08:16 Bedside Glucose 202 179 149 White Blood Count 11.7 H Red Blood Count 3.84 L Hemoglobin 10.8 L Hematocrit 32.0 L Mean Corpuscular Volume 83.3 Mean Corpuscular Hemoglobin 28.1 L Mean Corpuscular Hemoglobin Concent 33.8 Red Cell Distribution Width 15.2 H Platelet Count 295 Mean Platelet Volume 10.0 Neutrophils % 75.0 Lymphocytes % 13.8 L Monocytes % 8.0 Eosinophils % 0.9 Basophils % 0.1 Nucleated Red Blood Cells % 0.2 H Neutrophils # 8.8 H Lymphocytes # 1.6 Monocytes # 0.9 Eosinophils # 0.1 Basophils # 0.0 Nucleated Red Blood Cells # 0.0 Sodium Level 138 Potassium Level 4.4 Chloride Level 103 Carbon Dioxide Level 26 Anion Gap 13 Blood Urea Nitrogen 26 H Creatinine 0.69 Glucose Level 164 Calcium Level 8.3 L Test 02/24/17 11:57 Bedside Glucose 191 Medications Medications Current Medications Nitroglycerin (Nitroglycerin (Sl Tab) 0.4 Mg) 1 tab Q5M PRN SL ANGINA; Start 02/04/17 at 03:30 Metoprolol Tartrate (Lopressor) 25 mg BID PO Last administered on 02/23/17 20 :39; Admin Dose 25 MG; Start 02/04/17 at 09:00 Enoxaparin Sodium (Lovenox) 40 mg DAILY SC Last administered on 02/24/17 08: 27; Admin Dose 40 MG; Start 02/04/17 at 09:00 Acetaminophen (Tylenol Tab) 650 mg Q4H PRN PO PAIN AND OR ELEVATED TEMP Last administered on 02/15/17 13:47; Admin Dose 650 MG; Start 02/04/17 at 03:30 Hydromorphone HCl (Dilaudid) 1 mg Q3H PRN IV PAIN LEVEL 8-10 Last administered on 02/24/17 10:24; Admin Dose 1 MG; Start 02/04/17 at 03:30 Ondansetron HCl (Zofran Inj) 4 mg Q4H PRN IV NAUSEA AND/OR VOMITING Last administered on 02/11/17 01:16; Admin Dose 4 MG; Start 02/04/17 at 03:30 Pantoprazole (Protonix Tab) 40 mg DAILY@06 PO Last administered on 02/24/17 05:18; Admin Dose 40 MG; Start 02/04/17 at 06:00 Aspirin (Aspirin) 325 mg DAILY PO Last administered on 02/24/17 08:17; Admin Dose 325 MG; Start 02/04/17 at 09:00 Atorvastatin Calcium (Lipitor) 20 mg QHS PO Last administered on 02/23/17 20: 38; Admin Dose 20 MG; Start 02/05/17 at 21:00 Docusate Sodium (Colace) 100 mg BID PO Last administered on 02/24/17 08:17; Admin Dose 100 MG; Start 02/05/17 at 00:00 Lisinopril (Zestril) 5 mg DAILY PO Last administered on 02/24/17 08:22; Admin Dose 5 MG; Start 02/05/17 at 09:00 Diagnostic Test (Pha) (Accu-Chek) 1 ea 02 XX Last administered on 02/23/17 02 :20; Admin Dose 1 EA; Start 02/06/17 at 02:00 Miscellaneous Information 1 ea NOTE XX ; Start 02/05/17 at 18:30 Glucose (Glutose) 15 gm Q15M PRN PO DECREASED GLUCOSE; Start 02/05/17 at 18:30 Glucose (Glutose) 22.5 gm Q15M PRN PO DECREASED GLUCOSE; Start 02/05/17 at 18: 30 Dextrose (D50w Syringe) 25 ml Q15M PRN IV DECREASED GLUCOSE; Start 02/05/17 at 18:30 Dextrose (D50w Syringe) 50 ml Q15M PRN IV DECREASED GLUCOSE; Start 02/05/17 at 18:30 Glucagon (Glucagen) 1 mg Q15M PRN IM DECREASED GLUCOSE; Start 02/05/17 at 18: 30 Glucose 15 gm 15 gm Q15M PRN BUCCAL DECREASED GLUCOSE; Start 02/05/17 at 18:30 Potassium Chloride/Sodium Chloride (NS-KCl 20 Meq) 1,000 ml @ 60 mls/hr [id number] IV Last administered on 02/23/17 20:59; Admin Dose 60 MLS/HR; Start 02/07/17 at 16:00 Magnesium Hydroxide (Milk Of Mag) 30 ml Q6H PRN PO CONSTIPATION; Start at 23:00 Levetiracetam (Keppra) 500 mg BID PO Last administered on 02/24/17 08:18; Admin Dose 500 MG; Start 02/13/17 at 09:00 Pregabalin (Lyrica) 150 mg BID NGT Last administered on 02/24/17 08:18; Admin Dose 150 MG; Start 02/13/17 at 09:00 Meclizine HCl (Antivert) 25 mg TID PO Last administered on 02/24/17 08:18; Admin Dose 25 MG; Start 02/17/17 at 09:00 Polyethylene Glycol (Miralax) 17 gm DAILY PRN NGT CONSTIPATION Last administered on 02/22/17 21:23; Admin Dose 17 GM; Start 02/17/17 at 12:00 Dexamethasone (Decadron) 4 mg TID PO Last administered on 02/24/17 08:17; Admin Dose 4 MG; Start 02/23/17 at 21:00 Insulin Glargine (Lantus) 10 unit DAILY@20 SC Last administered on 02/23/17 20:34; Admin Dose 10 UNIT; Start 02/23/17 at 20:00 CHRIS FINK 15, 2017 12:58
--- NOTE | 2017-02-24 13:08 | PN ---
Date/Time of Note Date/Time of Note DATE: 02/24/17 TIME: 13:07 Assessment/Plan VTE Prophylaxis VTE Prophylaxis Intervention: SCD's Lines/Catheters IV C[facility]ter Type [facility]from [facility] Portacath Urinary Cath still in place: No Assessment/Plan Chief Complaint/Hosp Course Pending arrangement for MRI with spectroscopy at [facility]. Patient still complains of occasional dizziness, encouraged to get out of bed and ambulate. Assessment/Plan - Recurrent/persistent ovarian cancer, status post secondary cytoreduction surgery by Dr Hayes. Dr. Bang is following in oncology consultation. - Possible cerebral metastases. Continue steroids. - Possible seizures, continue Keppra - Vertigo, continue Meclizine. - UTI, s/p treatment with Levaquin. - Chest pain, rule out acute coronary syndrome. CTA is negative for PE. Dr Lucero in following in cardiology consultation. - DM with hemoglobin A1c 6.3. Continue NovoLog per mild algorithm sliding scale. Further recommendations based on clinical course. Plan of care discussed with Dr. Phelps. Problems: Exam/Review of Systems Vital Signs Vitals Vital Signs Date Time Temp Pulse Resp B/P Pulse Ox O2 Delivery O2 Flow Rate FiO2 02/24/17 07:18 98.7 57 16 115/56 94 Intake and Output 02/23/17 02/23/17 02/24/17 15:00 23:00 07:00 Intake Total 1830 ml 500 ml Output Total 1400 ml Balance 430 ml 500 ml Exam Constitutional: alert, oriented Respiratory: normal air movement Cardiovascular: nl pulses Gastrointestinal: non-tender, soft Neurological: nl mental status Skin: nl turgor Results Result Diagram: 02/24/17 0508 02/24/17 0508 Results 24 hrs Laboratory Tests Test 02/23/17 17:19 02/23/17 20:31 02/24/17 05:08 02/24/17 08:16 Bedside Glucose 202 179 149 White Blood Count 11.7 H Red Blood Count 3.84 L Hemoglobin 10.8 L Hematocrit 32.0 L Mean Corpuscular Volume 83.3 Mean Corpuscular Hemoglobin 28.1 L Mean Corpuscular Hemoglobin Concent 33.8 Red Cell Distribution Width 15.2 H Platelet Count 295 Mean Platelet Volume 10.0 Neutrophils % 75.0 Lymphocytes % 13.8 L Monocytes % 8.0 Eosinophils % 0.9 Basophils % 0.1 Nucleated Red Blood Cells % 0.2 H Neutrophils # 8.8 H Lymphocytes # 1.6 Monocytes # 0.9 Eosinophils # 0.1 Basophils # 0.0 Nucleated Red Blood Cells # 0.0 Sodium Level 138 Potassium Level 4.4 Chloride Level 103 Carbon Dioxide Level 26 Anion Gap 13 Blood Urea Nitrogen 26 H Creatinine 0.69 Glucose Level 164 Calcium Level 8.3 L Test 02/24/17 11:57 Bedside Glucose 191 Medications Medications Current Medications Nitroglycerin (Nitroglycerin (Sl Tab) 0.4 Mg) 1 tab Q5M PRN SL ANGINA; Start 02/04/17 at 03:30 Enoxaparin Sodium (Lovenox) 40 mg DAILY SC Last administered on 02/24/17 08: 27; Admin Dose 40 MG; Start 02/04/17 at 09:00 Acetaminophen (Tylenol Tab) 650 mg Q4H PRN PO PAIN AND OR ELEVATED TEMP Last administered on 02/15/17 13:47; Admin Dose 650 MG; Start 02/04/17 at 03:30 Hydromorphone HCl (Dilaudid) 1 mg Q3H PRN IV PAIN LEVEL 8-10 Last administered on 02/24/17 10:24; Admin Dose 1 MG; Start 02/04/17 at 03:30 Ondansetron HCl (Zofran Inj) 4 mg Q4H PRN IV NAUSEA AND/OR VOMITING Last administered on 02/11/17 01:16; Admin Dose 4 MG; Start 02/04/17 at 03:30 Pantoprazole (Protonix Tab) 40 mg DAILY@06 PO Last administered on 02/24/17 05:18; Admin Dose 40 MG; Start 02/04/17 at 06:00 Aspirin (Aspirin) 325 mg DAILY PO Last administered on 02/24/17 08:17; Admin Dose 325 MG; Start 02/04/17 at 09:00 Atorvastatin Calcium (Lipitor) 20 mg QHS PO Last administered on 02/23/17 20: 38; Admin Dose 20 MG; Start 02/05/17 at 21:00 Docusate Sodium (Colace) 100 mg BID PO Last administered on 02/24/17 08:17; Admin Dose 100 MG; Start 02/05/17 at 00:00 Lisinopril (Zestril) 5 mg DAILY PO Last administered on 02/24/17 08:22; Admin Dose 5 MG; Start 02/05/17 at 09:00 Diagnostic Test (Pha) (Accu-Chek) 1 ea 02 XX Last administered on 02/23/17 02 :20; Admin Dose 1 EA; Start 02/06/17 at 02:00 Miscellaneous Information 1 ea NOTE XX ; Start 02/05/17 at 18:30 Glucose (Glutose) 15 gm Q15M PRN PO DECREASED GLUCOSE; Start 02/05/17 at 18:30 Glucose (Glutose) 22.5 gm Q15M PRN PO DECREASED GLUCOSE; Start 02/05/17 at 18: 30 Dextrose (D50w Syringe) 25 ml Q15M PRN IV DECREASED GLUCOSE; Start 02/05/17 at 18:30 Dextrose (D50w Syringe) 50 ml Q15M PRN IV DECREASED GLUCOSE; Start 02/05/17 at 18:30 Glucagon (Glucagen) 1 mg Q15M PRN IM DECREASED GLUCOSE; Start 02/05/17 at 18: 30 Glucose 15 gm 15 gm Q15M PRN BUCCAL DECREASED GLUCOSE; Start 02/05/17 at 18:30 Potassium Chloride/Sodium Chloride (NS-KCl 20 Meq) 1,000 ml @ 60 mls/hr [id number] IV Last administered on 02/23/17 20:59; Admin Dose 60 MLS/HR; Start 02/07/17 at 16:00 Magnesium Hydroxide (Milk Of Mag) 30 ml Q6H PRN PO CONSTIPATION; Start at 23:00 Levetiracetam (Keppra) 500 mg BID PO Last administered on 02/24/17 08:18; Admin Dose 500 MG; Start 02/13/17 at 09:00 Pregabalin (Lyrica) 150 mg BID NGT Last administered on 02/24/17 08:18; Admin Dose 150 MG; Start 02/13/17 at 09:00 Meclizine HCl (Antivert) 25 mg TID PO Last administered on 02/24/17 08:18; Admin Dose 25 MG; Start 02/17/17 at 09:00 Polyethylene Glycol (Miralax) 17 gm DAILY PRN NGT CONSTIPATION Last administered on 02/22/17 21:23; Admin Dose 17 GM; Start 02/17/17 at 12:00 Dexamethasone (Decadron) 4 mg TID PO Last administered on 02/24/17 08:17; Admin Dose 4 MG; Start 02/23/17 at 21:00 Insulin Glargine (Lantus) 10 unit DAILY@20 SC Last administered on 02/23/17 20:34; Admin Dose 10 UNIT; Start 02/23/17 at 20:00 Metoprolol Tartrate (Lopressor) 12.5 mg BID PO ; Start 02/24/17 at 21:00; Status MATHIEU ALONZO Feb 24, 2017 13:08
[2017-02-24 14:05] VITALS: BP 110/52; RESP 18
[2017-02-24] MEDS: NS + KCL 20 MEQ 1,000 ML IV SCH (14:44)
--- NOTE | 2017-02-24 15:59 | PN ---
DATE: 02/24/2017 HISTORY OF PRESENT ILLNESS: Patient is unchanged. Symptoms remain all the same. Physical examinat ion is also unchanged. OBJECTIVE: VITAL SIGNS: Temperature 97.9, pulse 60 per minute and regular, respirations 18, blood pressure 110 /52 and pulse oximetry 95% on room air. LABORATORY DATA: White count today is 11,700, hemoglobin 10.8, hematocrit 32 and platelet count is 2 95,000. Sodium 138, potassium 4.4, creatinine 0.69, BUN 26. As noted yesterday, the patient is in possession of a letter which states that she has approval to h ave MRI with spectroscopy done by the [facility]. I am not clear if this is to be done at [facility]. I do feel an attempt should be made to schedule the scan as quickly as possible. This can actually be done as an outpatient with the patient returning for chemotherapy and further treatment depending on the results of the scan. Dictated By: DAVID MESA MD, SR/RADHA Conf#: [id number] DID#: [id number]
[2017-02-24] MEDS ORDERED: DEC4 PO (16:56)
[2017-02-24] MEDS ORDERED: ASPI81TA3 PO (16:56)
[2017-02-24] MEDS ORDERED: HYDR-902 PO (16:56)
[2017-02-24] MEDS ORDERED: MECL-77 PO (16:56)
[2017-02-24] MEDS ORDERED: LEVE-5 PO (16:56)
[2017-02-24] MEDS ORDERED: METO-448 PO (16:56)
[2017-02-24] MEDS ORDERED: HEPARIN (100 UNITS/ML) 5 ML SYG CATHETER ONE (18:30)
[2017-02-24] MEDS ORDERED: METOPROLOL 25 MG TAB PO SCH (21:00)
--- NOTE | 2017-02-24 21:56 | DS ---
Date/Time of Note Date/Time of Note DATE: 02/24/17 TIME: 21:53 Discharge Summary Admission/Discharge Info Admit Date/Time Feb 04, 2017 at 00:40 Discharge Date/Time Feb 24, 2017 at 18:45 Patient Condition: Stable Hx of Present Illness HPI This is a 61-year-old female patient with history of total abdominal hysterectomy due to ovarian carcinoma, laparotomy, ventral hernia repair, repair of right carotid artery and a right internal jugular vein sec to injury during central line placement. Patient is admitted with complains of chest pain or shortness of breath 2 days but none at present. She stated chest pain was sharp, nonexertional, nonradiating , associated with nausea and clear nonbloody nonbilious emesis, not gating better with pain med. She uses oral analgesics daily for her post op pain. During physical exam, patient is resting in bed, seems comfortable, She denies dizziness, palpitations, cough, fevers or chills, focal weakness, numbness, abdominal pain, nausea/ vomitting, bilateral calf or leg swelling. Patient is admitted under Dr Phelps for further evaluation and treatment. ROS All systems reviewed and are negative except as per history of present illness. Allergies Allergies: Coded Allergies: No Known Allergies (Unverified Allergy, Unknown, 02/03/17) Hospital Course - Recurrent/persistent ovarian cancer, status post secondary cytoreduction surgery by Dr Hayes. Dr. Bang is following in oncology consultation. - Possible cerebral metastases. Continue steroids. - Possible seizures, continue Keppra - Vertigo, continue Meclizine. - UTI, s/p treatment with Levaquin. - Chest pain, rule out acute coronary syndrome. CTA is negative for PE. Dr Lucero in following in cardiology consultation. - DM with hemoglobin A1c 6.3. Continue NovoLog per mild algorithm sliding scale. Home Meds Active Scripts Aspirin* (Aspirin* Chew) 81 Mg Tab.chew, 81 MG PO DAILY for 30 Days, TAB.CHEW Prov:MATHIEU WALSH 02/24/17 Metoprolol Tartrate* (Lopressor*) 25 Mg Tab, 12.5 MG PO BID for 30 Days, TAB Prov:MATHIEU WALSH 02/24/17 Meclizine Hcl* (Meclizine Hcl*) 25 Mg Tablet, 25 MG PO TID, #90 TAB Prov:MATHIEU WALSH 02/24/17 Levetiracetam* (Keppra*) 500 Mg Tablet, 500 MG PO BID for 30 Days, TAB Prov:MATHIEU WALSH 02/24/17 Dexamethasone* (Decadron*) 4 Mg Tab, 4 MG PO BID for 30 Days, TAB Prov:MATHIEU WALSH 02/24/17 Hydrocodone/Acetaminophen (Ozan 10-325 Tablet) 1 Each Tablet, 1 EACH PO Q4H, # 30 TAB Prov:MATHIEU WALSH 02/24/17 Docusate Sodium* (Colace*) 100 Mg Capsule, 100 MG PO BID, #30 CAP Prov:YFN BRIAN 01/28/17 Reported Medications Atorvastatin Calcium* (Atorvastatin Calcium*) 20 Mg Tablet, 20 MG PO QHS, #30 TAB 01/13/17 Lisinopril* (Lisinopril*) 5 Mg Tablet, 5 MG PO DAILY, #30 TAB 02/05/16 Omeprazole* (Omeprazole*) 20 Mg Capsule., 20 MG PO DAILY, #30 CAP 02/05/16 Follow-up Plan f/up with Dr Bang next week, MRI with spectroscopy as an outpatient Primary Care Provider [facility] Time spent on discharge: > 30 minutes Pending Labs Laboratory Tests Test 02/24/17 05:08 02/24/17 08:16 02/24/17 11:57 02/24/17 17:28 White Blood Count 11.710^3/ul (4.8-10.8) Red Blood Count 3.8410^6/ul (4.20-5.40) Hemoglobin 10.8g/dl (12.0-16.0) Hematocrit 32.0% (37.0-47.0) Mean Corpuscular Volume 83.3fl (82.0-101.0) Mean Corpuscular Hemoglobin 28.1pg (29.0-33.0) Mean Corpuscular Hemoglobin Concent 33.8g/dl (32.0-37.0) Red Cell Distribution Width 15.2% (11.5-14.5) Platelet Count 64606^3/UL (140-415) Mean Platelet Volume 10.0fl (7.4-10.4) Neutrophils % 75.0% (39.0-77.0) Lymphocytes % 13.8% (15.0-51.0) Monocytes % 8.0% (0.0-11.0) Eosinophils % 0.9% (0.0-7.0) Basophils % 0.1% (0.0-2.0) Nucleated Red Blood Cells % 0.2/100WBC (0.0-0.0) Neutrophils # 8.810^3/ul (1.6-7.5) Lymphocytes # 1.610^3/ul (0.8-2.9) Monocytes # 0.910^3/ul (0.3-0.9) Eosinophils # 0.110^3/ul (0.0-0.5) Basophils # 0.010^3/ul (0.0-0.1) Nucleated Red Blood Cells # 0.010^3/ul (0.0-0.0) Sodium Level 138mmol/L (135-144) Potassium Level 4.4mmol/L (3.5-5.1) Chloride Level 103mmol/L (97-110) Carbon Dioxide Level 26mmol/L (21-31) Anion Gap 13 (8-16) Blood Urea Nitrogen 26mg/dl (7-20) Creatinine 0.69mg/dl (0.44-1.00) Glucose Level 164mg/dl (70-220) Calcium Level 8.3mg/dl (8.4-10.2) Bedside Glucose 149mg/dL (70-220) 191mg/dL (70-220) 211mg/dL (70-220) MATHIEU WALSH Feb 24, 2017 21:56
== END 2017-02-24 18:45 | disposition home or self-care (01) | DRG 313 ==
LOC: E/R 15:19 → MS4 02-04 00:40 → MS2 02-11 20:01
PROVIDERS: ADMIT Internal Medicine; ATTEND Internal Medicine
PROC: 4A02XM4 Measurement of Cardiac Total Activity, External Approach (ICD-10-PCS; principal; 2017-02-10)
DX: R07.89 Other chest pain (principal); I25.10 Atherosclerotic heart disease of native coronary artery without angina pectoris; G93.6 Cerebral edema; C79.31 Secondary malignant neoplasm of brain; R56.9 Unspecified convulsions; E11.42 Type 2 diabetes mellitus with diabetic polyneuropathy; B95.2 Enterococcus as the cause of diseases classified elsewhere; C56.9 Malignant neoplasm of unspecified ovary; N39.0 Urinary tract infection, site not specified; I10 Essential (primary) hypertension; D64.9 Anemia, unspecified; E78.5 Hyperlipidemia, unspecified; Z79.4 Long term (current) use of insulin; R42 Dizziness and giddiness; G89.18 Other acute postprocedural pain; R00.0 Tachycardia, unspecified; R94.31 Abnormal electrocardiogram [ECG] [EKG]
CPT/HCPCS: 70553; 71010; 71275; 72141; 72146; 72148; 78452; 80048; 80053; 80061; 81001; 82962; 83690; 83735; 84484; 85025; 85378; 86304; 86305; 87040; 87086; 93005; 93017; 93306; 95819; 96374; 96375; 96376; 97161; A9500; A9505; J0696; J1100; J1170; J1642; J1650; J1815; J1885; J1956; J2185; J2405; J2785; J3370; J3480; J7030; J7050; Q9967

== ENCOUNTER 2017-03-12 17:23 | Emergency (ER) | payer OTHER ==
[~2017-03-12] VITALS: Ht 162.6 cm; Wt 63.9 kg
[~2017-03-12 17:23] MED LIST changes: -ASPI-664 PO; +ASPI81TA3 PO; +DEC4 PO; -HYDR-3498 PO; +HYDR-902 PO; +LEVE-5 PO; +MECL-77 PO; +METO-448 PO
[2017-03-12 17:43] VITALS: Ht 162.6 cm; Wt 63.9 kg
--- NOTE | 2017-03-12 21:15 | ERD ---
ER Documentation Chief Complaint Chief Complaint Pt referred-PMD for sugars 500, CATALAN, vomiting dizziness X 2 months, Dx CA ROS All systems reviewed and are negative except as per history of present illness. Medications Home Meds Active Scripts Aspirin* (Aspirin* Chew) 81 Mg Tab.chew, 81 MG PO DAILY for 30 Days, TAB.CHEW Prov:JILLIANMATHIEU 02/24/17 Metoprolol Tartrate* (Lopressor*) 25 Mg Tab, 12.5 MG PO BID for 30 Days, TAB [facility] 02/24/17 Meclizine Hcl* (Meclizine Hcl*) 25 Mg Tablet, 25 MG PO TID, #90 TAB [facility] 02/24/17 Levetiracetam* (Keppra*) 500 Mg Tablet, 500 MG PO BID for 30 Days, TAB Prov:[facility] 02/24/17 Dexamethasone* (Decadron*) 4 Mg Tab, 4 MG PO BID for 30 Days, TAB [facility] 02/24/17 Hydrocodone/Acetaminophen ([place] 10-325 Tablet) 1 Each Tablet, 1 EACH PO Q4H, # 30 TAB Prov[facility] 02/24/17 Docusate Sodium* (Colace*) 100 Mg Capsule, 100 MG PO BID, #30 CAP Prov:YFN BRIAN 01/28/17 Reported Medications Azithromycin* (Azithromycin*) 250 Mg Tablet, 250 MG PO DAILY, #4 TAB take 2 tab-1st day and other days take 1 tab 03/12/17 Ondansetron Hcl* (Ondansetron Hcl*) 4 Mg Tablet, 4 MG PO Q8, TAB 03/12/17 Atorvastatin Calcium* (Atorvastatin Calcium*) 20 Mg Tablet, 20 MG PO QHS, #30 TAB 01/13/17 Lisinopril* (Lisinopril*) 5 Mg Tablet, 5 MG PO DAILY, #30 TAB 02/05/16 Omeprazole* (Omeprazole*) 20 Mg Capsule.dr, 20 MG PO DAILY, #30 CAP 02/05/16 Allergies Allergies: Coded Allergies: No Known Allergies (Unverified Allergy, Unknown, 03/12/17) PMhx/Soc hest pain r/o acute coronary syndrome . none at present. - troponin negative - D-dimer elevated -3000. - CTA is negative for PE - per Dr Lucero in cardiology - admit on tele -Ovarian cancer in remission -status post secondary cytoreduction surgery by Dr Hayes. -Postoperative pain - DM with hemoglobin A1c 6.2 as of 01/15 2107. 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 Pedroza. - Anemia- H/H stable, con to monitor - Hypertension - cont Lisinopril, metoprolol - Dyslipidemia - cont Atorvastatin - Coronary Artery Disease History of Surgery: Yes (HYSTERECTOMY, LAP ROBB, VENTRAL HERNAI REPAIR) Anesthesia Reaction: No Hx Neurological Disorder: No Hx Respiratory Disorders: No Hx Cardiac Disorders: Yes (HTN, HLD) Hx Psychiatric Problems: No Hx Miscellaneous Medical Probl: Yes (See EMR) Hx Alcohol Use: No Hx Substance Use: No Hx Tobacco Use: No Physical Exam Vitals Vital Signs Date Time Temp Pulse Resp B/P Pulse Ox O2 Delivery O2 Flow Rate FiO2 03/12/17 23:04 98.0 63 18 147/67 95 Room Air 03/12/17 21:40 98.0 81 18 165/72 96 Room Air 03/12/17 17:43 98.0 91 18 144/83 94 Physical Exam Const: [] Head: Atraumatic Eyes: Normal Conjunctiva ENT: Normal External Ears, Nose and Mouth. Neck: Full range of motion..~ No meningismus. Resp: Clear to auscultation bilaterally Cardio: Regular rate and rhythm, no murmurs Abd: Soft, non tender, non distended. Normal bowel sounds Skin: No petechiae or rashes Back: No midline or flank tenderness Ext: No cyanosis, or edema Neur: Awake and alert Psych: Normal Mood and Affect Result Diagram: 03/12/17213303/12/172133 Results 24 hrs Laboratory Tests Test 03/12/17 21:34 03/12/17 21:35 White Blood Count 8.910^3/ul Red Blood Count 4.7410^6/ul Hemoglobin 13.1g/dl Hematocrit 38.1% Mean Corpuscular Volume 80.4fl Mean Corpuscular Hemoglobin 27.6pg Mean Corpuscular Hemoglobin Concent 34.4g/dl Red Cell Distribution Width 15.5% Platelet Count 62273^3/UL Mean Platelet Volume 9.7fl Neutrophils % 80.9% Lymphocytes % 11.0% Monocytes % 4.7% Eosinophils % 0.0% Basophils % 0.2% Nucleated Red Blood Cells % 0.2/100WBC Neutrophils # 7.210^3/ul Lymphocytes # 1.010^3/ul Monocytes # 0.410^3/ul Eosinophils # 0.010^3/ul Basophils # 0.010^3/ul Nucleated Red Blood Cells # 0.010^3/ul Urine Color YELLOW Urine Clarity CLOUDY Urine pH 5.0 Urine Specific [place] 1.027 Urine Ketones TRACEmg/dL Urine Nitrite NEGATIVEmg/dL Urine Bilirubin NEGATIVEmg/dL Urine Urobilinogen NEGATIVEmg/dL Urine Leukocyte Esterase 3+Ghassan/ul Urine Microscopic RBC 29/HPF Urine Microscopic WBC > 182/HPF Urine Squamous Epithelial Cells FEW/HPF Urine Bacteria FEW/HPF Urine Mucus MODERATE/HPF Urine Hemoglobin 1+mg/dL Urine Glucose 3+mg/dL Urine Total Protein 1+mg/dl Sodium Level 130mmol/L Potassium Level 3.9mmol/L Chloride Level 94mmol/L Carbon Dioxide Level 25mmol/L Anion Gap 15 Blood Urea Nitrogen 21mg/dl Creatinine 0.51mg/dl Glucose Level 385mg/dl Calcium Level 9.1mg/dl Total Bilirubin 0.5mg/dl Direct Bilirubin 0.00mg/dl Indirect Bilirubin 0.5mg/dl Aspartate Amino Transf (AST/SGOT) 14IU/L Alanine Aminotransferase (ALT/SGPT) 36IU/L Alkaline Phosphatase 161IU/L Total Protein 6.6g/dl Albumin 3.7g/dl Globulin 2.90g/dl Albumin/Globulin Ratio 1.27 Lipase 74U/L Bedside Glucose 353mg/dL Current Medications Medications (Trade) Dose Ordered Sig/David Route PRN Reason Start Time Stop Time Status Last Admin Dose Admin Sodium Chloride (NS) 1,000 ml @ 1,000 mls/hr Q1H STAT IV 03/12/17 21:52 03/12/17 22:51 DC 03/12/17 22:08 JD WALTERS MD Mar 12, 2017 21:15
[2017-03-12] MEDS ORDERED: SOD CHLORIDE 0.9% 1,000 ML IV STA (21:52)
[2017-03-12] MEDS ORDERED: ONDA4TAB95 PO (21:55)
[2017-03-12] MEDS ORDERED: AZIT250T6 PO (21:56)
[2017-03-12 22:10] LABS: BASOPHILS % 0.2 % (0.0-2.0); HEMATOCRIT 38.1 % (37.0-47.0); HEMOGLOBIN 13.1 g/dl (12.0-16.0); MEAN CORPUSCULAR HEMOGLOBIN 27.6 pg (29.0-33.0); MEAN CORPUSCULAR HGB CONC 34.4 g/dl (32.0-37.0); MEAN CORPUSCULAR VOLUME 80.4 fl (82.0-101.0); MEAN PLATELET VOLUME 9.7 fl (7.4-10.4); MONOCYTE # 0.4 10^3/ul (0.3-0.9); MONOCYTES % 4.7 % (0.0-11.0); NEUTROPHIL # 7.2 10^3/ul (1.6-7.5); NEUTROPHILS % 80.9 % (39.0-77.0); NUCLEATED RED BLOOD CELLS% 0.2 /100WBC (0.0-0.0); PLATELET COUNT 321 10^3/UL (140-415); RED BLOOD COUNT 4.74 10^6/ul (4.20-5.40); RED CELL DISTRIBUTION WIDTH 15.5 % (11.5-14.5); WHITE BLOOD COUNT 8.9 10^3/ul (4.8-10.8)
[2017-03-12 22:20] LABS: ADD UMIC YES; UR ASCORBIC ACID 20 mg/dL (NEGATIVE); UR BACTERIA FEW /HPF (NONE SEEN); UR BILIRUBIN (Dip) NEGATIVE (NEGATIVE); UR BLOOD (Dip) 1+ mg/dL (NEGATIVE); UR CLARITY CLOUDY (CLEAR); UR COLOR YELLOW (YELLOW); UR GLUCOSE (Dip) 3+ mg/dL (NEGATIVE); UR KETONES (Dip) TRACE mg/dL (NEGATIVE); UR LEUKOCYTE ESTERASE (Dip) 3+ Leu/ul (NEGATIVE); UR MUCUS MODERATE /HPF (NONE SEEN); UR NITRITE (Dip) NEGATIVE (NEGATIVE); UR RBC 29 /HPF (0-5); UR SPECIFIC GRAVITY (Dip) 1.027 (1.003-1.030); UR SQUAMOUS EPITHELIAL CELL FEW /HPF (FEW); UR TOTAL PROTEIN (Dip) 1+ mg/dl (NEGATIVE); UR UROBILINOGEN (Dip) NEGATIVE (NEGATIVE)
[2017-03-12 22:34] LABS: ALBUMIN 3.7 g/dl (3.3-4.9); ALBUMIN/GLOBULIN RATIO 1.27; BILIRUBIN,INDIRECT 0.5 mg/dl (0-1.1); BILIRUBIN,TOTAL 0.5 mg/dl (0.2-1.3); CALCIUM 9.1 mg/dl (8.4-10.2); CREATININE 0.51 mg/dl (0.44-1.00); POTASSIUM 3.9 mmol/L (3.5-5.1); TOTAL PROTEIN 6.6 g/dl (6.1-8.1)
[2017-03-12 23:04] VITALS: BP 147/67; PULSE 63; RESP 18; TEMP 98
--- NOTE | 2017-03-12 23:26 | ERD ---
ER Documentation Chief Complaint Chief Complaint high glucose HPI The patient is a 61-year-old female, presenting to the ER because of elevated blood glucose. She was seen by her physician today who sent her to the ER. She complains of nausea, dizziness intermittently. She denies fever, chills, neck pain or chest pain, dyspnea, abdominal pain, dysuria, diarrhea. She does not smoke nor drink. She is being investigated for brain tumor and is on high dose of Decadron 4 mg twice daily for the last month. she is having chemo therapy for ovarian cancer next week, Past medical history: HTN, dyslipidemia, epilepsy, vertigo, diet control diabetes mellitus Past surgical history: Hysterectomy due to ovarian cancer,ventral herniorrhaphy ROS All systems reviewed and are negative except as per history of present illness. Medications Home Meds Active Scripts Sulfamethoxazole/Trimethoprim* (Bactrim Ds* Tablet) 1 Each Tablet, 1 TAB PO BID , #14 TAB Prov:ASHWINI BAL MD 03/13/17 Aspirin* (Aspirin* Chew) 81 Mg Tab.chew, 81 MG PO DAILY for 30 Days, TAB.CHEW Prov:MATHIEU WALSH 02/24/17 Metoprolol Tartrate* (Lopressor*) 25 Mg Tab, 12.5 MG PO BID for 30 Days, TAB Prov:MATHIEU WALSH 02/24/17 Meclizine Hcl* (Meclizine Hcl*) 25 Mg Tablet, 25 MG PO TID, #90 TAB Prov:MATHIEU WALSH 02/24/17 Levetiracetam* (Keppra*) 500 Mg Tablet, 500 MG PO BID for 30 Days, TAB Prov:MATHIEU WALSH 02/24/17 Dexamethasone* (Decadron*) 4 Mg Tab, 4 MG PO BID for 30 Days, TAB Prov:MATHIEU WALSH 02/24/17 Hydrocodone/Acetaminophen ([place] 10-325 Tablet) 1 Each Tablet, 1 EACH PO Q4H, # 30 TAB Prov:MATHIEU WALSH 02/24/17 Docusate Sodium* (Colace*) 100 Mg Capsule, 100 MG PO BID, #30 CAP Prov:YFN BRIAN 01/28/17 Reported Medications Azithromycin* (Azithromycin*) 250 Mg Tablet, 250 MG PO DAILY, #4 TAB take 2 tab-1st day and other days take 1 tab 03/12/17 Ondansetron Hcl* (Ondansetron Hcl*) 4 Mg Tablet, 4 MG PO Q8, TAB 03/12/17 Atorvastatin Calcium* (Atorvastatin Calcium*) 20 Mg Tablet, 20 MG PO QHS, #30 TAB 01/13/17 Lisinopril* (Lisinopril*) 5 Mg Tablet, 5 MG PO DAILY, #30 TAB 02/05/16 Omeprazole* (Omeprazole*) 20 Mg Capsule.dr, 20 MG PO DAILY, #30 CAP 02/05/16 Allergies Allergies: Coded Allergies: No Known Allergies (Unverified Allergy, Unknown, 03/12/17) PMhx/Soc History of Surgery: Yes (HYSTERECTOMY, LAP ROBB, VENTRAL HERNIA REPAIR, OVARIAN SX) Anesthesia Reaction: No Hx Neurological Disorder: No Hx Respiratory Disorders: No Hx Cardiac Disorders: Yes (HTN, HLD) Hx Psychiatric Problems: No Hx Miscellaneous Medical Probl: Yes (ovarian ca, brain tumor) Hx Alcohol Use: No Hx Substance Use: No Hx Tobacco Use: No Smoking Status: Never smoker Physical Exam Vitals Vital Signs Date Time Temp Pulse Resp B/P Pulse Ox O2 Delivery O2 Flow Rate FiO2 03/12/17 23:04 98.0 63 18 147/67 95 Room Air 03/12/17 21:40 98.0 81 18 165/72 96 Room Air 03/12/17 17:43 98.0 91 18 144/83 94 Physical Exam Const: No acute distress. Head: Atraumatic. Eyes: Normal Conjunctiva. ENT: Normal External Ears, Nose and Mouth. Neck: Full range of motion. No meningismus. Resp: Clear to auscultation bilaterally. Cardio: Regular rate and rhythm. Abd: Soft, non distended, normal bowel sounds, non tender. Skin: No petechiae or rashes. Back: No midline or flank tenderness. Ext: No cyanosis, or edema. Neur: Awake and alert. No focal deficit Psych: Normal Mood and Affect. Result Diagram: 03/12/17213303/12/172133 Results 24 hrs Laboratory Tests Test 03/12/17 21:34 03/12/17 21:35 03/12/17 23:32 White Blood Count 8.910^3/ul Red Blood Count 4.7410^6/ul Hemoglobin 13.1g/dl Hematocrit 38.1% Mean Corpuscular Volume 80.4fl Mean Corpuscular Hemoglobin 27.6pg Mean Corpuscular Hemoglobin Concent 34.4g/dl Red Cell Distribution Width 15.5% Platelet Count 57559^3/UL Mean Platelet Volume 9.7fl Neutrophils % 80.9% Lymphocytes % 11.0% Monocytes % 4.7% Eosinophils % 0.0% Basophils % 0.2% Nucleated Red Blood Cells % 0.2/100WBC Neutrophils # 7.210^3/ul Lymphocytes # 1.010^3/ul Monocytes # 0.410^3/ul Eosinophils # 0.010^3/ul Basophils # 0.010^3/ul Nucleated Red Blood Cells # 0.010^3/ul Urine Color YELLOW Urine Clarity CLOUDY Urine pH 5.0 Urine Specific [place] 1.027 Urine Ketones TRACEmg/dL Urine Nitrite NEGATIVEmg/dL Urine Bilirubin NEGATIVEmg/dL Urine Urobilinogen NEGATIVEmg/dL Urine Leukocyte Esterase 3+Ghassan/ul Urine Microscopic RBC 29/HPF Urine Microscopic WBC > 182/HPF Urine Squamous Epithelial Cells FEW/HPF Urine Bacteria FEW/HPF Urine Mucus MODERATE/HPF Urine Hemoglobin 1+mg/dL Urine Glucose 3+mg/dL Urine Total Protein 1+mg/dl Sodium Level 130mmol/L Potassium Level 3.9mmol/L Chloride Level 94mmol/L Carbon Dioxide Level 25mmol/L Anion Gap 15 Blood Urea Nitrogen 21mg/dl Creatinine 0.51mg/dl Glucose Level 385mg/dl Calcium Level 9.1mg/dl Total Bilirubin 0.5mg/dl Direct Bilirubin 0.00mg/dl Indirect Bilirubin 0.5mg/dl Aspartate Amino Transf (AST/SGOT) 14IU/L Alanine Aminotransferase (ALT/SGPT) 36IU/L Alkaline Phosphatase 161IU/L Total Protein 6.6g/dl Albumin 3.7g/dl Globulin 2.90g/dl Albumin/Globulin Ratio 1.27 Lipase 74U/L Bedside Glucose 353mg/dL 319mg/dL Current Medications Medications (Trade) Dose Ordered Sig/David Route PRN Reason Start Time Stop Time Status Last Admin Dose Admin Sodium Chloride (NS) 1,000 ml @ 1,000 mls/hr Q1H STAT IV 03/12/17 21:52 03/12/17 22:51 DC 03/12/17 22:08 Procedures/MDM MEDICAL MAKING DECISION: The patient is a 61-year-old female, presenting with acute diabetic hyperglycemia, acute cystitis, is stable for outpatient follow- up. She was treated with 1 L normal saline for acute diabetic hyperglycemia with good response The differential diagnoses considered include but are not limited to UTI, pyelonephritis, pneumonia, DKA, HHS Departure Diagnosis: Primary Impression: Hyperglycemia Additional Impressions: UTI (urinary tract infection) Abnormal LFTs Condition: Good Comments She was discharged with Bactrim DS I discussed the findings with the patient. I advised the patient to follow-up with the primary physician in about 1-2 days, sooner if needed and return if any concern. Disclaimer: Inadvertent spelling and grammatical errors are likely due to EHR/ dictation software use and do not reflect on the overall quality of patient care. Also, please note that the electronic time recorded on this note does not necessarily reflect the actual time of the patient encounter. ASHWINI BAL MD Mar 12, 2017 23:26
[2017-03-13] MEDS ORDERED: SULF1TAB31 PO (01:00)
== END 2017-03-13 01:30 | disposition home or self-care (01) ==
LOC: E/R 17:23
DX: E11.65 Type 2 diabetes mellitus with hyperglycemia (principal); N39.0 Urinary tract infection, site not specified; R94.5 Abnormal results of liver function studies; I10 Essential (primary) hypertension; Z79.82 Long term (current) use of aspirin; Z85.43 Personal history of malignant neoplasm of ovary
CPT/HCPCS: 36415; 80053; 81001; 82962; 83690; 85025; J7030; Z7502

== ENCOUNTER 2017-11-12 10:42 | Day surgery (SDC) | END 2017-11-12 15:05 | disposition home or self-care (01) ==

== ENCOUNTER 2017-12-28 10:14 | Day surgery (SDC) | END 2017-12-28 14:59 | disposition home or self-care (01) ==

== ENCOUNTER → 2018-12-01 | Outpatient (CLI) | payer MEDICARE, OTHER ==
[~2018-12-01] MED LIST changes: -ASPI81TA3 PO; -DEC4 PO; -DOCU-144 PO; +HYDR-3980 PO; -HYDR-902 PO; +INSU100I12 SQ; -LEVE-5 PO; -MECL-77 PO; -METO-448 PO; +OLAP150T PO
== END | disposition home or self-care (01) ==
LOC: NUC 08:32
PROVIDERS: ATTEND Internal Medicine Hematology & Oncology
DX: C57.01 Malignant neoplasm of right fallopian tube (principal)
CPT/HCPCS: 78472; A9560